=== PATIENT | female | born 1945 | race African-American/Black ===

== ENCOUNTER → 2017-11-15 12:51 | Outpatient (CLI) | payer MEDICARE, SELFPAY ==
[2017-11-19 10:24] LABS: 585 Gram Check P; Amount Collected in g 585; Dizziness NO; Postdiastolic BP 88; Postsystolic BP 130; Prediastolic 95; Presystolic 145; Pulse 99; Site of phlebotomy RAC; Swelling NO; Therapeutic Phleb Comment NO COMMENT; Zero Check Sebra Scale P
[2017-11-19 11:23] LABS: Alanine Aminotransferase 62 IU/L (9-52); Albumin 4.2 g/dL (3.5-5.0); Albumin Globulin Ratio 1.2 (1.0-2.8); Alkaline Phosphatase 114 U/L (38-126); Aspartate Aminotransferase 63 IU/L (14-36); BUN Creatinine Ratio 14.3 (6-22); Bilirubin Total 0.5 mg/dL (0.2-1.3); Blood Urea Nitrogen 10 mg/dL (7-17); Calcium 9.2 mg/dL (8.4-10.2); Carbon Dioxide 26 mmol/L (22-32); Chloride 103 mmol/L (98-107); Estimated Glomerular Filt Rate > 60.0 mL/min (>60); Globulin 3.4 g/dL (1.7-4.1); Glucose 107 mg/dL (80-110); HEMOLYSIS 23 (0-50); Potassium 3.7 mmol/L (3.4-5.1); Sodium 145 mmol/L (137-145); Total Protein 7.6 g/dL (6.3-8.2)
[2017-11-19 11:51] LABS: HEMOLYSIS < 15 (0-50); Iron 47 ug/dL (37-170)
[2017-11-19 11:55] LABS: Ferritin 20.8 ng/mL (11.1-264)
[2017-11-19 12:02] LABS: Percent Iron Saturation 11 % (15-50); Total Iron Binding Capacity 447 ug/mL (265-497); Transferrin 344 mg/dL (206-381)
== END ==
PROVIDERS: PCP Internal Medicine; Visit Provider Nurse Practitioner Gerontology
DX: D75.1 Secondary polycythemia (principal)
CPT/HCPCS: 80053; 82728; 83540; 83550; 99195

== ENCOUNTER → 2017-11-28 08:35 | Outpatient (CLI) | payer MEDICARE, SELFPAY ==
--- NOTE | 2017-11-28 | DI.MG.S_ITS ---
BILATERAL DIGITAL SCREENING MAMMOGRAM 3D/2D WITH CAD: 11/28/2017 CLINICAL: Routine screening. Comparison is made to exams dated: 10/23/2016 mammogram, 10/07/2015 mammogram, and 09/24/2014 mammogram - [facility]. There are scattered fibroglandular elements in both breasts. Current study was also evaluated with a Computer Aided Detection (CAD) system. No significant masses, calcifications, or other findings are seen in either breast. There has been no significant interval change. IMPRESSION: NEGATIVE There is no mammographic evidence of malignancy. A 1 year screening mammogram is recommended. This exam was interpreted at Station ID: [id number]. NOTE: For mammograms, a report in lay terms will be sent to the patient. Approximately 15% of breast malignancies will not be visualized mammographically. In the management of a palpable breast mass, a negative mammogram must not discourage biopsy of a clinically suspicious lesion. Electronically Signed By: Alin beck/tennille:11/28/2017 11:14:05 letter sent: Normal Exam ACR BI-RADS Category 1: Negative [id number]
== END ==
PROVIDERS: PCP Internal Medicine; Visit Provider Internal Medicine
DX: Z12.31 Encounter for screening mammogram for malignant neoplasm of breast (principal)
CPT/HCPCS: 77063; 77067

== ENCOUNTER 2017-12-24 12:37 | Emergency (ER) | payer MEDICARE, SELFPAY ==
[2017-12-24 12:51] VITALS: BP 131/93; PULSE 92; RESP 20; TEMP 35.9; O2SAT 95; BMI 22.9
--- NOTE | 2017-12-24 13:18 | ED.ABDPAIN ---
HPI - Abdominal Pain <Michelle Lemus PA-C - Last Filed: 12/24/17 20:39> General Chief Complaint: Abdominal Pain Stated Complaint: PAIN LOWER RIGHT ABDOMINAL AREA FOR ABOUT 3 DAYS Time Seen by Provider: 12/24/17 13:18 Source: patient and family Mode of arrival: ambulatory Limitations: no limitations History of Present Illness HPI narrative: This 72-year-old female comes in due to right lower quadrant pain x3 days. She was seen at the walk-in clinic and was sent here due to concern for appendicitis. She states that she awoke with pain, denies any trauma. She states that pain is worse with getting up and started to move around, a little bit better when she starts to walk. She states that pain does not radiate. She has not had any fever. She states she has not had any nausea or vomiting. No reflux, chest pain, or dyspnea. She denies any dysuria or hematuria. She states that she has had slightly smaller bowel movements because she has been eating less, but no diarrhea or other changes. She does have somewhat less appetite than usual. She denies any other new symptoms on systems review. Related Data Home Medications Medication Instructions Recorded Confirmed aspirin [Aspir-81] 1 tab PO DAILY 11/15/17 12/26/17 multivitamin 1 tab PO DAILY 11/15/17 12/26/17 omega 8-owt-vhm-fish oil [[place]-3] 1 cap PO DAILY 11/15/17 12/26/17 Calcium 1 tab PO DAILY 12/24/17 12/26/17 latanoprost 1 drp OPHTHALMIC (EYE) DIRECTED 12/24/17 12/26/17 losartan-hydrochlorothiazide 1 tab PO DAILY 12/24/17 12/26/17 Previous Rx's Medication Instructions Recorded amoxicillin-pot clavulanate 1 tab PO Q12H #20 tab 12/24/17 [Augmentin] Allergies Allergy/AdvReac Type Severity Reaction Status Date / Time lisinopril Allergy Unknown SWELLING Verified 12/26/17 09:11 LIPS, TONGUE Exam <Michelle Lemus PA-C - Last Filed: 12/24/17 20:39> Narrative Exam Narrative: GENERAL APPEARANCE: Patient sitting comfortably, in no distress. HEENT: PERRL, EOMI, conjunctiva pink, no scleral icterus NECK: Supple LUNGS: Clear to auscultation bilaterally. HEART: Rate and rhythm regular, normal S1 and S2, no S3 or S4. ABDOMEN: Soft, nondistended, bowel sounds present x 4 quadrants, no masses palpable, she has moderate tenderness throughout the abdomen, increased over the right upper quadrant with +Das's, and most over the right lower quadrant where she does have some guarding, no rebound, negative obturator, psoas and Wilian EXTREMITIES: No edema, no cyanosis DERMATOLOGIC: No jaundice or exanthem NEUROLOGIC: Alert and oriented with normal speech and coordination Initial Vital Signs Initial Vital Signs: Vital Signs Temperature 96.7 F L 12/24/17 12:51 Pulse Rate 92 H 12/24/17 12:51 Respiratory Rate 20 12/24/17 12:51 Blood Pressure 131/93 H 12/24/17 12:51 Pulse Oximetry 95 12/24/17 12:51 <Carole Palomo DO - Last Filed: 12/26/17 13:35> Initial Vital Signs Initial Vital Signs: Vital Signs Temperature 96.7 F L 12/24/17 12:51 Pulse Rate 92 H 12/24/17 12:51 Respiratory Rate 20 12/24/17 12:51 Blood Pressure 131/93 H 12/24/17 12:51 Pulse Oximetry 95 12/24/17 12:51 Course <Michelle Lemus PA-C - Last Filed: 12/24/17 20:39> Additional Information: CT scan findings were reviewed with patient and surgical consult was requested with Dr. Mueller who is simulation educator. She has visited patient in the ED and plan to start her on antibiotics and do colonoscopy to evaluate for infection prior to possible colon resection or colectomy. Colonoscopy is planned for . Patient wished to go home until then so Dr. Meuller suggested starting her on Augmentin and has her scheduled already to return at a.m. on . Advised patient to return if any new symptoms such as vomiting or fever or acutely worsening pain in the interim, and she is agreeable Orders Ordered: Discontinued Medications Ketorolac Tromethamine (Toradol) 15 mg IV NOW ONE Stop: 12/24/17 13:32 Last Admin: 12/24/17 13:49 Dose: 15 mg Vital Signs - 8 hr 12/24/17 12:51 12/24/17 14:42 12/24/17 16:06 Temperature 96.7 F L Pulse Rate 92 H 75 78 Respiratory Rate 20 12 14 Blood Pressure 131/93 H Blood Pressure [Right Arm] 147/83 H 144/95 H Pulse Oximetry 95 99 100 <Carole Palomo DO - Last Filed: 12/26/17 13:35> Orders Ordered: Discontinued Medications Ketorolac Tromethamine (Toradol) 15 mg IV NOW ONE Stop: 12/24/17 13:32 Last Admin: 12/24/17 13:49 Dose: 15 mg Vital Signs - 8 hr 12/24/17 12:51 12/24/17 14:42 12/24/17 16:06 Temperature 96.7 F L Pulse Rate 92 H 75 78 Respiratory Rate 20 12 14 Blood Pressure 131/93 H Blood Pressure [Right Arm] 147/83 H 144/95 H Pulse Oximetry 95 99 100 MDM - Abdominal Pain <Michelle Lemus PA-C - Last Filed: 12/24/17 20:39> Lab Data Result diagrams: 12/24/17 13:40 12/24/17 13:40 Lab Results 12/24/17 12/24/17 12/24/17 Range/Units 13:40 13:40 13:40 WBC 12.6 H (4.5-11.0) X10^3/uL RBC 5.69 H (4.0-5.2) X10^6/uL Hgb 16.8 H (12.0-16.0) g/dL Hct 51.6 H (36-46) % MCV 90.7 (80-100) fL MCH 29.6 (26-34) PG MCHC 32.6 (30-36) % RDW 15.0 H (11.6-14.8) % Plt Count 181 (150-400) X10^3/uL Neut % (Auto) Not Reportable Lymph % (Auto) Not Reportable [place] % (Auto) Not Reportable Eos % (Auto) Not Reportable Baso % (Auto) Not Reportable Total Counted 100 Seg Neutrophils % 45.0 (38-70) % Lymphocytes % (Manual) 40.0 (25-45) % Atypical Lymphs % 9.0 H ( - 0) % Monocytes % (Manual) 6.0 (2-11) % Neutrophils # (Manual) 5670 (5266-5825) /uL RBC Morphology Not Reportable PT 12.0 (10.1-12.7) SECONDS INR 1.1 (0.9-1.3) APTT 31 (26.4-36.2) SECONDS Sodium 142 (137-145) mmol/L Potassium 3.7 (3.4-5.1) mmol/L Chloride 102 (98-107) mmol/L Carbon Dioxide 30 (22-32) mmol/L BUN 9 (7-17) mg/dL Creatinine 0.70 (0.52-1.04) mg/dL Estimated GFR > 60.0 (>60) mL/min BUN/Creatinine Ratio 12.9 (6-22) Glucose 80 (80-110) mg/dL Calcium 9.2 (8.4-10.2) mg/dL Total Bilirubin 0.8 (0.2-1.3) mg/dL AST 60 H (14-36) IU/L ALT 60 H (9-52) IU/L Alkaline Phosphatase 107 (38-126) U/L Total Protein 7.7 (6.3-8.2) g/dL Albumin 4.2 (3.5-5.0) g/dL Globulin 3.5 (1.7-4.1) g/dL Albumin/Globulin Ratio 1.2 (1.0-2.8) Lipase 22 L (23-300) U/L Urine Color Urine Appearance Urine pH (4.5-8.0) Ur Specific [place] (1.000-1.035) Urine Protein (Negative) Urine Glucose (UA) (Normal) g/dL Urine Ketones (NEGATIVE) Urine Occult Blood (Negative) Urine Nitrate (Negative) Urine Bilirubin (NEGATIVE) Urine Urobilinogen (0.2) E.U./dL Ur Leukocyte Esterase (NEGATIVE) Urine RBC (0-5/HPF) Urine WBC (0-5/HPF) Ur Squamous Epith Cells Urine Bacteria (None) Ur Culture Indicated? Micro UA Comment 12/24/17 Range/Units 16:19 WBC (4.5-11.0) X10^3/uL RBC (4.0-5.2) X10^6/uL Hgb (12.0-16.0) g/dL Hct (36-46) % MCV (80-100) fL MCH (26-34) PG MCHC (30-36) % RDW (11.6-14.8) % Plt Count (150-400) X10^3/uL Neut % (Auto) Lymph % (Auto) [place] % (Auto) Eos % (Auto) Baso % (Auto) Total Counted Seg Neutrophils % (38-70) % Lymphocytes % (Manual) (25-45) % Atypical Lymphs % ( - 0) % Monocytes % (Manual) (2-11) % Neutrophils # (Manual) (7161-5899) /uL RBC Morphology PT (10.1-12.7) SECONDS INR (0.9-1.3) APTT (26.4-36.2) SECONDS Sodium (137-145) mmol/L Potassium (3.4-5.1) mmol/L Chloride (98-107) mmol/L Carbon Dioxide (22-32) mmol/L BUN (7-17) mg/dL Creatinine (0.52-1.04) mg/dL Estimated GFR (>60) mL/min BUN/Creatinine Ratio (6-22) Glucose (80-110) mg/dL Calcium (8.4-10.2) mg/dL Total Bilirubin (0.2-1.3) mg/dL AST (14-36) IU/L ALT (9-52) IU/L Alkaline Phosphatase (38-126) U/L Total Protein (6.3-8.2) g/dL Albumin (3.5-5.0) g/dL Globulin (1.7-4.1) g/dL Albumin/Globulin Ratio (1.0-2.8) Lipase (23-300) U/L Urine Color Yellow Urine Appearance Clear Urine pH 5.0 (4.5-8.0) Ur Specific [place] <=1.005 (1.000-1.035) Urine Protein Negative (Negative) Urine Glucose (UA) Negative (Normal) g/dL Urine Ketones Trace H (NEGATIVE) Urine Occult Blood Trace-lysed (Negative) Urine Nitrate Negative (Negative) Urine Bilirubin Negative (NEGATIVE) Urine Urobilinogen 0.2 (0.2) E.U./dL Ur Leukocyte Esterase Negative (NEGATIVE) Urine RBC 0-1/hpf (0-5/HPF) Urine WBC 1-5/hpf (0-5/HPF) Ur Squamous Epith Cells 5-10 /hpf H Urine Bacteria Few (2-10) H (None) Ur Culture Indicated? Cult not indicated Micro UA Comment Not Reportable <Carole Palomo, DO - Last Filed: 12/26/17 13:35> Lab Data Lab Results 12/24/17 12/24/17 12/24/17 Range/Units 13:40 13:40 13:40 WBC 12.6 H (4.5-11.0) X10^3/uL RBC 5.69 H (4.0-5.2) X10^6/uL Hgb 16.8 H (12.0-16.0) g/dL Hct 51.6 H (36-46) % MCV 90.7 (80-100) fL MCH 29.6 (26-34) PG MCHC 32.6 (30-36) % RDW 15.0 H (11.6-14.8) % Plt Count 181 (150-400) X10^3/uL Neut % (Auto) Not Reportable Lymph % (Auto) Not Reportable [place] % (Auto) Not Reportable Eos % (Auto) Not Reportable Baso % (Auto) Not Reportable Total Counted 100 Seg Neutrophils % 45.0 (38-70) % Lymphocytes % (Manual) 40.0 (25-45) % Atypical Lymphs % 9.0 H ( - 0) % Monocytes % (Manual) 6.0 (2-11) % Neutrophils # (Manual) 5670 (1537-8720) /uL RBC Morphology Not Reportable PT 12.0 (10.1-12.7) SECONDS INR 1.1 (0.9-1.3) APTT 31 (26.4-36.2) SECONDS Sodium 142 (137-145) mmol/L Potassium 3.7 (3.4-5.1) mmol/L Chloride 102 (98-107) mmol/L Carbon Dioxide 30 (22-32) mmol/L BUN 9 (7-17) mg/dL Creatinine 0.70 (0.52-1.04) mg/dL Estimated GFR > 60.0 (>60) mL/min BUN/Creatinine Ratio 12.9 (6-22) Glucose 80 (80-110) mg/dL Calcium 9.2 (8.4-10.2) mg/dL Total Bilirubin 0.8 (0.2-1.3) mg/dL AST 60 H (14-36) IU/L ALT 60 H (9-52) IU/L Alkaline Phosphatase 107 (38-126) U/L Total Protein 7.7 (6.3-8.2) g/dL Albumin 4.2 (3.5-5.0) g/dL Globulin 3.5 (1.7-4.1) g/dL Albumin/Globulin Ratio 1.2 (1.0-2.8) Lipase 22 L (23-300) U/L Urine Color Urine Appearance Urine pH (4.5-8.0) Ur Specific [place] (1.000-1.035) Urine Protein (Negative) Urine Glucose (UA) (Normal) g/dL Urine Ketones (NEGATIVE) Urine Occult Blood (Negative) Urine Nitrate (Negative) Urine Bilirubin (NEGATIVE) Urine Urobilinogen (0.2) E.U./dL Ur Leukocyte Esterase (NEGATIVE) Urine RBC (0-5/HPF) Urine WBC (0-5/HPF) Ur Squamous Epith Cells Urine Bacteria (None) Ur Culture Indicated? Micro UA Comment 12/24/17 Range/Units 16:19 WBC (4.5-11.0) X10^3/uL RBC (4.0-5.2) X10^6/uL Hgb (12.0-16.0) g/dL Hct (36-46) % MCV (80-100) fL MCH (26-34) PG MCHC (30-36) % RDW (11.6-14.8) % Plt Count (150-400) X10^3/uL Neut % (Auto) Lymph % (Auto) [place] % (Auto) Eos % (Auto) Baso % (Auto) Total Counted Seg Neutrophils % (38-70) % Lymphocytes % (Manual) (25-45) % Atypical Lymphs % ( - 0) % Monocytes % (Manual) (2-11) % Neutrophils # (Manual) (1016-8246) /uL RBC Morphology PT (10.1-12.7) SECONDS INR (0.9-1.3) APTT (26.4-36.2) SECONDS Sodium (137-145) mmol/L Potassium (3.4-5.1) mmol/L Chloride (98-107) mmol/L Carbon Dioxide (22-32) mmol/L BUN (7-17) mg/dL Creatinine (0.52-1.04) mg/dL Estimated GFR (>60) mL/min BUN/Creatinine Ratio (6-22) Glucose (80-110) mg/dL Calcium (8.4-10.2) mg/dL Total Bilirubin (0.2-1.3) mg/dL AST (14-36) IU/L ALT (9-52) IU/L Alkaline Phosphatase (38-126) U/L Total Protein (6.3-8.2) g/dL Albumin (3.5-5.0) g/dL Globulin (1.7-4.1) g/dL Albumin/Globulin Ratio (1.0-2.8) Lipase (23-300) U/L Urine Color Yellow Urine Appearance Clear Urine pH 5.0 (4.5-8.0) Ur Specific [place] <=1.005 (1.000-1.035) Urine Protein Negative (Negative) Urine Glucose (UA) Negative (Normal) g/dL Urine Ketones Trace H (NEGATIVE) Urine Occult Blood Trace-lysed (Negative) Urine Nitrate Negative (Negative) Urine Bilirubin Negative (NEGATIVE) Urine Urobilinogen 0.2 (0.2) E.U./dL Ur Leukocyte Esterase Negative (NEGATIVE) Urine RBC 0-1/hpf (0-5/HPF) Urine WBC 1-5/hpf (0-5/HPF) Ur Squamous Epith Cells 5-10 /hpf H Urine Bacteria Few (2-10) H (None) Ur Culture Indicated? Cult not indicated Micro UA Comment Not Reportable Discharge Plan Departure Patient Disposition: Home, Self-Care Clinical Impression: Appendicitis Discharge Date/Time: 12/24/17 16:49 Interventions: ED Discharge Assessment Last Done: 12/24/17 16:40 Instructions: DI for Abdominal Pain-Adult Activity Restrictions/Additional Instructions: Please return as we talked about if you have acutely worsening pain, or new fever or vomiting or other worsening symptoms, otherwise check in at the main desk on December 26 at a.m. for your colonoscopy with Dr. Mueller so she can do further investigation on the mass that was seen on the CT scan and your inflammed appendix. I have sent an antibiotic prescription to [facility] for you that Dr. Mueller would like you to take Prescriptions: New amoxicillin-pot clavulanate [Augmentin] 875-125 mg tablet 1 tab PO Q12H Qty: 20 RF: 0 No Action latanoprost 0.005 % drops 1 drp ophthalmic (eye) DIRECTED RF: 0 losartan-hydrochlorothiazide 50-12.5 mg tablet 1 tab PO DAILY RF: 0 Calcium 1 tab PO DAILY RF: 0 omega 4-ufh-dfv-fish oil [[place]-3] 350 mg-235 mg- 90 mg-597 mg Capsule,Delayed Release(Dr/Ec) 1 cap PO DAILY RF: 0 aspirin [Aspir-81] 81 mg Tablet,Delayed Release (Dr/Ec) 1 tab PO DAILY RF: 0 multivitamin Tablet 1 tab PO DAILY RF: 0 Referrals: Aura Mueller MD [Physician] - Sayra Russo MD [Primary Care Provider] - <Carole Palomo DO - Last Filed: 12/26/17 13:35> Cosign ED Attending Cosignature Attestation: I was immediately available in the department for consultation. Documentation has been reviewed. I agree with assessment and plan.
--- NOTE | 2017-12-24 13:37 | DI.CT.S_ITS ---
PROCEDURE: CT ABDOMEN PELVIS W CON INDICATIONS: Abdominal pain, most RUQ TECHNIQUE: After the administration of oral and intravenous contrast, 5 mm thick sections acquired from the diaphragms to the symphysis. 5 mm thick coronal and sagittal reformats were performed. For radiation dose reduction, the following was used: automated exposure control, adjustment of mA and/or kV according to patient size. COMPARISON: None. FINDINGS: Image quality: Excellent. ABDOMEN: Lung bases: There is mild dependent atelectasis bilaterally. Heart size is normal. Solid organs: There is hypoattenuation of the liver consistent with fatty infiltration. No discrete hepatic mass identified. Gallbladder appears within normal limits without calcified gallstones. Biliary system is non-dilated. Pancreas enhances normally. Spleen is normal in size and enhancement. No adrenal nodules. Kidneys are normal in size and enhancement, without hydronephrosis. Peritoneum and bowel: There is prominent masslike lobulated wall thickening in the cecum also involving the terminal ileum. No associated dilatation of the small bowel to suggest small bowel obstruction at this time. There is associated mild dilatation and wall thickening of the appendix which measures up to approximately 1 cm in diameter. There is posterior wall enhancement and mild fat stranding. Findings are suggestive of acute appendicitis without evidence of perforation. There is colonic diverticulosis in the descending and sigmoid colon without evidence of acute diverticulitis. No free fluid or air. Nodes and vessels: No retroperitoneal or mesenteric adenopathy. Aorta and inferior vena cava are normal in caliber. Miscellaneous: No ventral hernias. PELVIS: Genitourinary: Bladder wall thickness is normal. Miscellaneous: No inguinal hernias or adenopathy. Bones: No suspicious bony lesions. No vertebral body compression fractures. IMPRESSION: 1. Lobulated cecal wall thickening highly suspicious for a neoplasm such as adenocarcinoma. There is involvement of the terminal ileum although there is no evidence of bowel obstruction at this time. The differential includes an infectious or inflammatory colitis although this is considered less likely given the degree of wall thickening. Recommend correlation with colonoscopy. 2. Abnormal mild distention and wall thickening of the appendix with associated inflammatory fat changes suggestive of associated acute appendicitis. Findings discussed with Cherrie Lemus PA-C on 12/24/17 at 2:40 PM. Dictated by: Russ Givens M.D. on 12/24/2017 at 14:29 Approved by: Russ Givens M.D. on 12/24/2017 at 14:48
--- NOTE | 2017-12-24 13:40 | ED_ITS ---
HPI - Abdominal Pain <Michelle Lemus PA-C - Last Filed: 12/24/17 20:39> General Chief Complaint: Abdominal Pain Stated Complaint: PAIN LOWER RIGHT ABDOMINAL AREA FOR ABOUT 3 DAYS Time Seen by Provider: 12/24/17 13:18 Source: patient and family Mode of arrival: ambulatory Limitations: no limitations History of Present Illness HPI narrative: This 72-year-old female comes in due to right lower quadrant pain x3 days. She was seen at the walk-in clinic and was sent here due to concern for appendicitis. She states that she awoke with pain, denies any trauma. She states that pain is worse with getting up and started to move around, a little bit better when she starts to walk. She states that pain does not radiate. She has not had any fever. She states she has not had any nausea or vomiting. No reflux, chest pain, or dyspnea. She denies any dysuria or hematuria. She states that she has had slightly smaller bowel movements because she has been eating less, but no diarrhea or other changes. She does have somewhat less appetite than usual. She denies any other new symptoms on systems review. Related Data Home Medications Medication Instructions Recorded Confirmed aspirin [Aspir-81] 1 tab PO DAILY 11/15/17 12/26/17 multivitamin 1 tab PO DAILY 11/15/17 12/26/17 omega 1-niw-jib-fish oil [[place]-3] 1 cap PO DAILY 11/15/17 12/26/17 Calcium 1 tab PO DAILY 12/24/17 12/26/17 latanoprost 1 drp OPHTHALMIC (EYE) DIRECTED 12/24/17 12/26/17 losartan-hydrochlorothiazide 1 tab PO DAILY 12/24/17 12/26/17 Previous Rx's Medication Instructions Recorded amoxicillin-pot clavulanate 1 tab PO Q12H #20 tab 12/24/17 [Augmentin] Allergies Allergy/AdvReac Type Severity Reaction Status Date / Time lisinopril Allergy Unknown SWELLING Verified 12/26/17 09:11 LIPS, TONGUE Exam <Michelle Lemus PA-C - Last Filed: 12/24/17 20:39> Narrative Exam Narrative: GENERAL APPEARANCE: Patient sitting comfortably, in no distress. HEENT: PERRL, EOMI, conjunctiva pink, no scleral icterus NECK: Supple LUNGS: Clear to auscultation bilaterally. HEART: Rate and rhythm regular, normal S1 and S2, no S3 or S4. ABDOMEN: Soft, nondistended, bowel sounds present x 4 quadrants, no masses palpable, she has moderate tenderness throughout the abdomen, increased over the right upper quadrant with +Das's, and most over the right lower quadrant where she does have some guarding, no rebound, negative obturator, psoas and Wilian EXTREMITIES: No edema, no cyanosis DERMATOLOGIC: No jaundice or exanthem NEUROLOGIC: Alert and oriented with normal speech and coordination Initial Vital Signs Initial Vital Signs: Vital Signs Temperature 96.7 F L 12/24/17 12:51 Pulse Rate 92 H 12/24/17 12:51 Respiratory Rate 20 12/24/17 12:51 Blood Pressure 131/93 H 12/24/17 12:51 Pulse Oximetry 95 12/24/17 12:51 <Carole Palomo DO - Last Filed: 12/26/17 13:35> Initial Vital Signs Initial Vital Signs: Vital Signs Temperature 96.7 F L 12/24/17 12:51 Pulse Rate 92 H 12/24/17 12:51 Respiratory Rate 20 12/24/17 12:51 Blood Pressure 131/93 H 12/24/17 12:51 Pulse Oximetry 95 12/24/17 12:51 Course <Michelle Lemus PA-C - Last Filed: 12/24/17 20:39> Additional Information: CT scan findings were reviewed with patient and surgical consult was requested with Dr. Mueller who is agricultural produce commission agent. She has visited patient in the ED and plan to start her on antibiotics and do colonoscopy to evaluate for infection prior to possible colon resection or colectomy. Colonoscopy is planned for . Patient wished to go home until then so Dr. Mueller suggested starting her on Augmentin and has her scheduled already to return at a.m. on . Advised patient to return if any new symptoms such as vomiting or fever or acutely worsening pain in the interim, and she is agreeable Orders Ordered: Discontinued Medications Ketorolac Tromethamine (Toradol) 15 mg IV NOW ONE Stop: 12/24/17 13:32 Last Admin: 12/24/17 13:49 Dose: 15 mg Vital Signs - 8 hr 12/24/17 12:51 12/24/17 14:42 12/24/17 16:06 Temperature 96.7 F L Pulse Rate 92 H 75 78 Respiratory Rate 20 12 14 Blood Pressure 131/93 H Blood Pressure [Right Arm] 147/83 H 144/95 H Pulse Oximetry 95 99 100 <Carole Palomo DO - Last Filed: 12/26/17 13:35> Orders Ordered: Discontinued Medications Ketorolac Tromethamine (Toradol) 15 mg IV NOW ONE Stop: 12/24/17 13:32 Last Admin: 12/24/17 13:49 Dose: 15 mg Vital Signs - 8 hr 12/24/17 12:51 12/24/17 14:42 12/24/17 16:06 Temperature 96.7 F L Pulse Rate 92 H 75 78 Respiratory Rate 20 12 14 Blood Pressure 131/93 H Blood Pressure [Right Arm] 147/83 H 144/95 H Pulse Oximetry 95 99 100 MDM - Abdominal Pain <Michelle Lemus PA-C - Last Filed: 12/24/17 20:39> Lab Data Result diagrams: 12/24/17 13:40 12/24/17 13:40 Lab Results 12/24/17 12/24/17 12/24/17 Range/Units 13:40 13:40 13:40 WBC 12.6 H (4.5-11.0) X10^3/uL RBC 5.69 H (4.0-5.2) X10^6/uL Hgb 16.8 H (12.0-16.0) g/dL Hct 51.6 H (36-46) % MCV 90.7 (80-100) fL MCH 29.6 (26-34) PG MCHC 32.6 (30-36) % RDW 15.0 H (11.6-14.8) % Plt Count 181 (150-400) X10^3/uL Neut % (Auto) Not Reportable Lymph % (Auto) Not Reportable [place] % (Auto) Not Reportable Eos % (Auto) Not Reportable Baso % (Auto) Not Reportable Total Counted 100 Seg Neutrophils % 45.0 (38-70) % Lymphocytes % (Manual) 40.0 (25-45) % Atypical Lymphs % 9.0 H ( - 0) % Monocytes % (Manual) 6.0 (2-11) % Neutrophils # (Manual) 5670 (2338-3716) /uL RBC Morphology Not Reportable PT 12.0 (10.1-12.7) SECONDS INR 1.1 (0.9-1.3) APTT 31 (26.4-36.2) SECONDS Sodium 142 (137-145) mmol/L Potassium 3.7 (3.4-5.1) mmol/L Chloride 102 (98-107) mmol/L Carbon Dioxide 30 (22-32) mmol/L BUN 9 (7-17) mg/dL Creatinine 0.70 (0.52-1.04) mg/dL Estimated GFR > 60.0 (>60) mL/min BUN/Creatinine Ratio 12.9 (6-22) Glucose 80 (80-110) mg/dL Calcium 9.2 (8.4-10.2) mg/dL Total Bilirubin 0.8 (0.2-1.3) mg/dL AST 60 H (14-36) IU/L ALT 60 H (9-52) IU/L Alkaline Phosphatase 107 (38-126) U/L Total Protein 7.7 (6.3-8.2) g/dL Albumin 4.2 (3.5-5.0) g/dL Globulin 3.5 (1.7-4.1) g/dL Albumin/Globulin Ratio 1.2 (1.0-2.8) Lipase 22 L (23-300) U/L Urine Color Urine Appearance Urine pH (4.5-8.0) Ur Specific [place] (1.000-1.035) Urine Protein (Negative) Urine Glucose (UA) (Normal) g/dL Urine Ketones (NEGATIVE) Urine Occult Blood (Negative) Urine Nitrate (Negative) Urine Bilirubin (NEGATIVE) Urine Urobilinogen (0.2) E.U./dL Ur Leukocyte Esterase (NEGATIVE) Urine RBC (0-5/HPF) Urine WBC (0-5/HPF) Ur Squamous Epith Cells Urine Bacteria (None) Ur Culture Indicated? Micro UA Comment 12/24/17 Range/Units 16:19 WBC (4.5-11.0) X10^3/uL RBC (4.0-5.2) X10^6/uL Hgb (12.0-16.0) g/dL Hct (36-46) % MCV (80-100) fL MCH (26-34) PG MCHC (30-36) % RDW (11.6-14.8) % Plt Count (150-400) X10^3/uL Neut % (Auto) Lymph % (Auto) [place] % (Auto) Eos % (Auto) Baso % (Auto) Total Counted Seg Neutrophils % (38-70) % Lymphocytes % (Manual) (25-45) % Atypical Lymphs % ( - 0) % Monocytes % (Manual) (2-11) % Neutrophils # (Manual) (2085-5431) /uL RBC Morphology PT (10.1-12.7) SECONDS INR (0.9-1.3) APTT (26.4-36.2) SECONDS Sodium (137-145) mmol/L Potassium (3.4-5.1) mmol/L Chloride (98-107) mmol/L Carbon Dioxide (22-32) mmol/L BUN (7-17) mg/dL Creatinine (0.52-1.04) mg/dL Estimated GFR (>60) mL/min BUN/Creatinine Ratio (6-22) Glucose (80-110) mg/dL Calcium (8.4-10.2) mg/dL Total Bilirubin (0.2-1.3) mg/dL AST (14-36) IU/L ALT (9-52) IU/L Alkaline Phosphatase (38-126) U/L Total Protein (6.3-8.2) g/dL Albumin (3.5-5.0) g/dL Globulin (1.7-4.1) g/dL Albumin/Globulin Ratio (1.0-2.8) Lipase (23-300) U/L Urine Color Yellow Urine Appearance Clear Urine pH 5.0 (4.5-8.0) Ur Specific [place] <=1.005 (1.000-1.035) Urine Protein Negative (Negative) Urine Glucose (UA) Negative (Normal) g/dL Urine Ketones Trace H (NEGATIVE) Urine Occult Blood Trace-lysed (Negative) Urine Nitrate Negative (Negative) Urine Bilirubin Negative (NEGATIVE) Urine Urobilinogen 0.2 (0.2) E.U./dL Ur Leukocyte Esterase Negative (NEGATIVE) Urine RBC 0-1/hpf (0-5/HPF) Urine WBC 1-5/hpf (0-5/HPF) Ur Squamous Epith Cells 5-10 /hpf H Urine Bacteria Few (2-10) H (None) Ur Culture Indicated? Cult not indicated Micro UA Comment Not Reportable <Carole Palomo, DO - Last Filed: 12/26/17 13:35> Lab Data Lab Results 12/24/17 12/24/17 12/24/17 Range/Units 13:40 13:40 13:40 WBC 12.6 H (4.5-11.0) X10^3/uL RBC 5.69 H (4.0-5.2) X10^6/uL Hgb 16.8 H (12.0-16.0) g/dL Hct 51.6 H (36-46) % MCV 90.7 (80-100) fL MCH 29.6 (26-34) PG MCHC 32.6 (30-36) % RDW 15.0 H (11.6-14.8) % Plt Count 181 (150-400) X10^3/uL Neut % (Auto) Not Reportable Lymph % (Auto) Not Reportable [place] % (Auto) Not Reportable Eos % (Auto) Not Reportable Baso % (Auto) Not Reportable Total Counted 100 Seg Neutrophils % 45.0 (38-70) % Lymphocytes % (Manual) 40.0 (25-45) % Atypical Lymphs % 9.0 H ( - 0) % Monocytes % (Manual) 6.0 (2-11) % Neutrophils # (Manual) 5670 (3193-1190) /uL RBC Morphology Not Reportable PT 12.0 (10.1-12.7) SECONDS INR 1.1 (0.9-1.3) APTT 31 (26.4-36.2) SECONDS Sodium 142 (137-145) mmol/L Potassium 3.7 (3.4-5.1) mmol/L Chloride 102 (98-107) mmol/L Carbon Dioxide 30 (22-32) mmol/L BUN 9 (7-17) mg/dL Creatinine 0.70 (0.52-1.04) mg/dL Estimated GFR > 60.0 (>60) mL/min BUN/Creatinine Ratio 12.9 (6-22) Glucose 80 (80-110) mg/dL Calcium 9.2 (8.4-10.2) mg/dL Total Bilirubin 0.8 (0.2-1.3) mg/dL AST 60 H (14-36) IU/L ALT 60 H (9-52) IU/L Alkaline Phosphatase 107 (38-126) U/L Total Protein 7.7 (6.3-8.2) g/dL Albumin 4.2 (3.5-5.0) g/dL Globulin 3.5 (1.7-4.1) g/dL Albumin/Globulin Ratio 1.2 (1.0-2.8) Lipase 22 L (23-300) U/L Urine Color Urine Appearance Urine pH (4.5-8.0) Ur Specific [place] (1.000-1.035) Urine Protein (Negative) Urine Glucose (UA) (Normal) g/dL Urine Ketones (NEGATIVE) Urine Occult Blood (Negative) Urine Nitrate (Negative) Urine Bilirubin (NEGATIVE) Urine Urobilinogen (0.2) E.U./dL Ur Leukocyte Esterase (NEGATIVE) Urine RBC (0-5/HPF) Urine WBC (0-5/HPF) Ur Squamous Epith Cells Urine Bacteria (None) Ur Culture Indicated? Micro UA Comment 12/24/17 Range/Units 16:19 WBC (4.5-11.0) X10^3/uL RBC (4.0-5.2) X10^6/uL Hgb (12.0-16.0) g/dL Hct (36-46) % MCV (80-100) fL MCH (26-34) PG MCHC (30-36) % RDW (11.6-14.8) % Plt Count (150-400) X10^3/uL Neut % (Auto) Lymph % (Auto) [place] % (Auto) Eos % (Auto) Baso % (Auto) Total Counted Seg Neutrophils % (38-70) % Lymphocytes % (Manual) (25-45) % Atypical Lymphs % ( - 0) % Monocytes % (Manual) (2-11) % Neutrophils # (Manual) (7595-5389) /uL RBC Morphology PT (10.1-12.7) SECONDS INR (0.9-1.3) APTT (26.4-36.2) SECONDS Sodium (137-145) mmol/L Potassium (3.4-5.1) mmol/L Chloride (98-107) mmol/L Carbon Dioxide (22-32) mmol/L BUN (7-17) mg/dL Creatinine (0.52-1.04) mg/dL Estimated GFR (>60) mL/min BUN/Creatinine Ratio (6-22) Glucose (80-110) mg/dL Calcium (8.4-10.2) mg/dL Total Bilirubin (0.2-1.3) mg/dL AST (14-36) IU/L ALT (9-52) IU/L Alkaline Phosphatase (38-126) U/L Total Protein (6.3-8.2) g/dL Albumin (3.5-5.0) g/dL Globulin (1.7-4.1) g/dL Albumin/Globulin Ratio (1.0-2.8) Lipase (23-300) U/L Urine Color Yellow Urine Appearance Clear Urine pH 5.0 (4.5-8.0) Ur Specific [place] <=1.005 (1.000-1.035) Urine Protein Negative (Negative) Urine Glucose (UA) Negative (Normal) g/dL Urine Ketones Trace H (NEGATIVE) Urine Occult Blood Trace-lysed (Negative) Urine Nitrate Negative (Negative) Urine Bilirubin Negative (NEGATIVE) Urine Urobilinogen 0.2 (0.2) E.U./dL Ur Leukocyte Esterase Negative (NEGATIVE) Urine RBC 0-1/hpf (0-5/HPF) Urine WBC 1-5/hpf (0-5/HPF) Ur Squamous Epith Cells 5-10 /hpf H Urine Bacteria Few (2-10) H (None) Ur Culture Indicated? Cult not indicated Micro UA Comment Not Reportable Discharge Plan Departure Patient Disposition: Home, Self-Care Clinical Impression: Appendicitis Discharge Date/Time: 12/24/17 16:49 Interventions: ED Discharge Assessment Last Done: 12/24/17 16:40 Instructions: DI for Abdominal Pain-Adult Activity Restrictions/Additional Instructions: Please return as we talked about if you have acutely worsening pain, or new fever or vomiting or other worsening symptoms, otherwise check in at the main desk on December 26 at a.m. for your colonoscopy with Dr. Mueller so she can do further investigation on the mass that was seen on the CT scan and your inflammed appendix. I have sent an antibiotic prescription to [facility] for you that Dr. Mueller would like you to take Prescriptions: New amoxicillin-pot clavulanate [Augmentin] 875-125 mg tablet 1 tab PO Q12H Qty: 20 RF: 0 No Action latanoprost 0.005 % drops 1 drp ophthalmic (eye) DIRECTED RF: 0 losartan-hydrochlorothiazide 50-12.5 mg tablet 1 tab PO DAILY RF: 0 Calcium 1 tab PO DAILY RF: 0 omega 2-xkf-rhs-fish oil [Carol[place]-3] 350 mg-235 mg- 90 mg-597 mg Capsule, Delayed Release(Dr/Ec) 1 cap PO DAILY RF: 0 aspirin [Aspir-81] 81 mg Tablet,Delayed Release (Dr/Ec) 1 tab PO DAILY RF: 0 multivitamin Tablet 1 tab PO DAILY RF: 0 Referrals: Aura Mueller MD [Physician] - Sayra Russo MD [Primary Care Provider] - <Carole Palomo DO - Last Filed: 12/26/17 13:35> Cosign ED Attending Cosignature Attestation: I was immediately available in the department for consultation. Documentation has been reviewed. I agree with assessment and plan.
[2017-12-24 13:49] LABS: Hematocrit 51.6 % (36-46); Hemoglobin 16.8 g/dL (12.0-16.0); Mean Corpuscular HGB Conc 32.6 % (30-36); Mean Corpuscular Hemoglobin 29.6 PG (26-34); Mean Corpuscular Volume 90.7 fL (80-100); Platelet Count 181 X10^3/uL (150-400); Red Blood Cell Count 5.69 X10^6/uL (4.0-5.2); White Blood Cell Count 12.6 X10^3/uL (4.5-11.0)
[2017-12-24] MEDS: KETOROLAC 60 MG/2 ML VIAL 15 MG IV (13:49)
[2017-12-24 13:52] LABS: Add Manual Diff / Slide Review YES
[2017-12-24 13:56] LABS: INR 1.1 (0.9-1.3)
[2017-12-24 13:58] LABS: PTT Partial Thromboplastin Tim 31 SECONDS (26.4-36.2)
[2017-12-24 14:00] LABS: Alanine Aminotransferase 60 IU/L (9-52); Albumin 4.2 g/dL (3.5-5.0); Albumin Globulin Ratio 1.2 (1.0-2.8); Alkaline Phosphatase 107 U/L (38-126); Aspartate Aminotransferase 60 IU/L (14-36); BUN Creatinine Ratio 12.9 (6-22); Bilirubin Total 0.8 mg/dL (0.2-1.3); Blood Urea Nitrogen 9 mg/dL (7-17); Calcium 9.2 mg/dL (8.4-10.2); Carbon Dioxide 30 mmol/L (22-32); Chloride 102 mmol/L (98-107); Estimated Glomerular Filt Rate > 60.0 mL/min (>60); Globulin 3.5 g/dL (1.7-4.1); Glucose 80 mg/dL (80-110); HEMOLYSIS < 15 (0-50); Lipase 22 U/L (23-300); Potassium 3.7 mmol/L (3.4-5.1); Sodium 142 mmol/L (137-145); Total Protein 7.7 g/dL (6.3-8.2)
[2017-12-24 14:18] LABS: Neutrophils Absolute Manual 5670 /uL (3000-5900); Total Cells Counted 100
[2017-12-24 14:19] LABS: Smudge Cells 2+
[2017-12-24 14:42] VITALS: BP 147/83; PULSE 75; RESP 12; O2SAT 99
[2017-12-24 16:06] VITALS: BP 144/95; PULSE 78; RESP 14; O2SAT 100
--- NOTE | 2017-12-24 16:19 | PC.NURSE ---
dr. george here to see
[2017-12-24 16:22] LABS: Appearance Urine UA CLEAR; Bilirubin Urine UA NEGATIVE (NEGATIVE); Color Urine UA YELLOW; Glucose Urine UA NEGATIVE (Normal); Ketones Urine UA TRACE (NEGATIVE); Leukocyte Esterase Urine UA NEGATIVE (NEGATIVE); Nitrite Urine UA Negative (Negative); Occult Blood Urine UA TRACE-LYSED (Negative); Protein Urine UA NEGATIVE (Negative); Specific Gravity Urine UA <=1.005 (1.000-1.035); Urobilinogen Urine UA 0.2 E.U./dL (0.2)
[2017-12-24 16:37] LABS: Bacteria Urine Few (2-10); Culture Indicated Urine Cult Not Indicated; RBC Urine 0-1/HPF (0-5/HPF); Squamous Epithelial Cell Urine 5-10 /HPF; WBC Urine 1-5/HPF (0-5/HPF)
--- NOTE | 2017-12-24 16:43 | PM.CN ---
History of Present Illness Date Patient Seen: 12/24/17 Time Patient Seen: 16:43 Chief complaint: PAIN LOWER RIGHT ABDOMINAL AREA FOR ABOUT 3 DAYS Reason for consult: Right lower quadrant pain Requesting provider: Michelle Lemus Narrative: Maria Dolores is a pleasant and generally healthy 72-year-old lady who presented to the emergency room complaining of right-sided abdominal pain. She was seen and evaluated by our staff there and found to have a cecal mass and inflammation involving the appendix. This mass was noted to be very suspicious for malignancy and I was consulted for management. The patient reports that she had a colonoscopy probably 20 years ago. At that time she did not have any polyps. She does not have any family history of colon cancer. She denies any unexplained weight loss. She really feels that this pain was only present for about 3 days. [facility] Medical History CLL (chronic lymphocytic leukemia) (Chronic) Erythrocytosis (Chronic) Glaucoma (Chronic) H/O: hysterectomy (Resolved) Other bursal cyst, unspecified wrist (Resolved) Tubal ligation status (Resolved) Social History Smoking Status: Current every day smoker alcohol intake: current substance use type: does not use Meds Home Medications Medication Instructions Recorded Confirmed Type aspirin [Aspir-81] 1 tab PO DAILY 11/15/17 12/24/17 History multivitamin 1 tab PO DAILY 11/15/17 12/24/17 History omega 7-txu-ztu-fish oil [[place]-3] 1 cap PO DAILY 11/15/17 12/24/17 History Calcium 1 tab PO DAILY 12/24/17 12/24/17 History amoxicillin-pot clavulanate 1 tab PO Q12H #20 tab 12/24/17 Rx [Augmentin] latanoprost 1 drp OPHTHALMIC (EYE) DIRECTED 12/24/17 12/24/17 History losartan-hydrochlorothiazide 1 tab PO DAILY 12/24/17 12/24/17 History Allergies Allergy/AdvReac Type Severity Reaction Status Date / Time lisinopril Allergy Unknown SWELLING Unverified 10/02/17 12:03 LIPS, TONGUE Review of Systems Review of Systems All systems reviewed & are unremarkable except as noted in HPI and below Exam Vital Signs (past 8 hours): - 12/24/17 12:51 12/24/17 14:42 12/24/17 16:06 Temperature 96.7 F L Pulse Rate 92 H 75 78 Respiratory Rate 20 12 14 Blood Pressure 131/93 H Blood Pressure [Right Arm] 147/83 H 144/95 H Pulse Oximetry 95 99 100 Oxygen Delivery Method Room Air Narrative Exam Narrative: Pleasant and fit lady who appears much younger than her stated age. HEENT: Normocephalic and atraumatic, pupils equal round reactive to light accommodation with anicteric sclera Lungs: Clear to auscultation bilaterally Heart: Regular rate and rhythm Abdomen: Soft, tender to palpation in the right lower quadrant and right upper quadrant. Some voluntary guarding but no true rebound. No hernias appreciated. Extremities: Warm and well perfused without edema. Objective Labs Result Diagrams: 12/24/17 13:40 12/24/17 13:40 Labs: Laboratory Results - last 24 hr 12/24/17 12/24/17 12/24/17 13:40 13:40 13:40 WBC 12.6 H RBC 5.69 H Hgb 16.8 H Hct 51.6 H MCV 90.7 MCH 29.6 MCHC 32.6 RDW 15.0 H Plt Count 181 Neut % (Auto) Not Reportable Lymph % (Auto) Not Reportable [place] % (Auto) Not Reportable Eos % (Auto) Not Reportable Baso % (Auto) Not Reportable Total Counted 100 Seg Neutrophils % 45.0 Lymphocytes % (Manual) 40.0 Atypical Lymphs % 9.0 H Monocytes % (Manual) 6.0 Neutrophils # (Manual) 5670 RBC Morphology Not Reportable PT 12.0 INR 1.1 APTT 31 Sodium 142 Potassium 3.7 Chloride 102 Carbon Dioxide 30 BUN 9 Creatinine 0.70 Estimated GFR > 60.0 BUN/Creatinine Ratio 12.9 Glucose 80 Calcium 9.2 Total Bilirubin 0.8 AST 60 H ALT 60 H Alkaline Phosphatase 107 Total Protein 7.7 Albumin 4.2 Globulin 3.5 Albumin/Globulin Ratio 1.2 Lipase 22 L Urine Color Urine Appearance Urine pH Ur Specific [place] Urine Protein Urine Glucose (UA) Urine Ketones Urine Occult Blood Urine Nitrate Urine Bilirubin Urine Urobilinogen Ur Leukocyte Esterase Urine RBC Urine WBC Ur Squamous Epith Cells Urine Bacteria Ur Culture Indicated? Micro UA Comment 12/24/17 16:19 WBC RBC Hgb Hct MCV MCH MCHC RDW Plt Count Neut % (Auto) Lymph % (Auto) [place] % (Auto) Eos % (Auto) Baso % (Auto) Total Counted Seg Neutrophils % Lymphocytes % (Manual) Atypical Lymphs % Monocytes % (Manual) Neutrophils # (Manual) RBC Morphology PT INR APTT Sodium Potassium Chloride Carbon Dioxide BUN Creatinine Estimated GFR BUN/Creatinine Ratio Glucose Calcium Total Bilirubin AST ALT Alkaline Phosphatase Total Protein Albumin Globulin Albumin/Globulin Ratio Lipase Urine Color Yellow Urine Appearance Clear Urine pH 5.0 Ur Specific [place] <=1.005 Urine Protein Negative Urine Glucose (UA) Negative Urine Ketones Trace H Urine Occult Blood Trace-lysed Urine Nitrate Negative Urine Bilirubin Negative Urine Urobilinogen 0.2 Ur Leukocyte Esterase Negative Urine RBC 0-1/hpf Urine WBC 1-5/hpf Ur Squamous Epith Cells 5-10 /hpf H Urine Bacteria Few (2-10) H Ur Culture Indicated? Cult not indicated Micro UA Comment Not Reportable [address] [address] [address] Scan Report Signed Patient: Maria Dolores Shoemaker MR#: [id number] : 1945 Acct:[id number] Age/Sex: 72 / F Date of Service: 12/24/17 Loc: ED Accession Number: [id number] Procedure: CT abdomen pelvis w con Ordering Provider: Michelle Lemus P.A-C PROCEDURE: CT ABDOMEN PELVIS W CON INDICATIONS: Abdominal pain, most RUQ TECHNIQUE: After the administration of oral and intravenous contrast, 5 mm thick sections acquired from the diaphragms to the symphysis. 5 mm thick coronal and sagittal reformats were performed. For radiation dose reduction, the following was used: automated exposure control, adjustment of mA and/or kV according to patient size. COMPARISON: None. FINDINGS: Image quality: Excellent. ABDOMEN: Lung bases: There is mild dependent atelectasis bilaterally. Heart size is normal. Solid organs: There is hypoattenuation of the liver consistent with fatty infiltration. No discrete hepatic mass identified. Gallbladder appears within normal limits without calcified gallstones. Biliary system is non-dilated. Pancreas enhances normally. Spleen is normal in size and enhancement. No adrenal nodules. Kidneys are normal in size and enhancement, without hydronephrosis. Peritoneum and bowel: There is prominent masslike lobulated wall thickening in the cecum also involving the terminal ileum. No associated dilatation of the small bowel to suggest small bowel obstruction at this time. There is associated mild dilatation and wall thickening of the appendix which measures up to approximately 1 cm in diameter. There is posterior wall enhancement and mild fat stranding. Findings are suggestive of acute appendicitis without evidence of perforation. There is colonic diverticulosis in the descending and sigmoid colon without evidence of acute diverticulitis. No free fluid or air. Nodes and vessels: No retroperitoneal or mesenteric adenopathy. Aorta and inferior vena cava are normal in caliber. Miscellaneous: No ventral hernias. PELVIS: Genitourinary: Bladder wall thickness is normal. Miscellaneous: No inguinal hernias or adenopathy. Bones: No suspicious bony lesions. No vertebral body compression fractures. IMPRESSION: 1. Lobulated cecal wall thickening highly suspicious for a neoplasm such as adenocarcinoma. There is involvement of the terminal ileum although there is no evidence of bowel obstruction at this time. The differential includes an infectious or inflammatory colitis although this is considered less likely given the degree of wall thickening. Recommend correlation with colonoscopy. 2. Abnormal mild distention and wall thickening of the appendix with associated inflammatory fat changes suggestive of associated acute appendicitis. Findings discussed with Cherrie Lemus PA-C on 12/24/17 at 2:40 PM. Dictated by: Russ Givens M.D. on 12/24/2017 at 14:29 Approved by: Russ Givens M.D. on 12/24/2017 at 14:48 Assessment & Plan Plan: Assessment/Plan Narrative: Very pleasant 72-year-old lady with a cecal abnormality on CT scan. This seems to be causing some degree of subacute appendicitis. Her pain pattern is more consistent with a slowly developing process then with a sudden acute onset. We talked about the the differential diagnosis of a cecal mass including infection and neoplasm. After careful discussion of the risks and benefits, I have recommended antibiotics to treat the current infectious process in the appendix and a colonoscopy planned for the day after tomorrow. This will give her a chance to prepped appropriately and also time for the antibiotics to start to take effect. Depending on the results of the colonoscopy, we may need to proceed with colectomy on Saturday. The patient has expressed an understanding of this plan and a desire to proceed with colonoscopy on .
--- NOTE | 2017-12-24 16:48 | P.CONS_ITS ---
History of Present Illness Date Patient Seen: 12/24/17 Time Patient Seen: 16:43 Chief complaint: PAIN LOWER RIGHT ABDOMINAL AREA FOR ABOUT 3 DAYS Reason for consult: Right lower quadrant pain Requesting provider: Michelle Lemus Narrative: Maria Dolores is a pleasant and generally healthy 72-year-old lady who presented to the emergency room complaining of right-sided abdominal pain. She was seen and evaluated by our staff there and found to have a cecal mass and inflammation involving the appendix. This mass was noted to be very suspicious for malignancy and I was consulted for management. The patient reports that she had a colonoscopy probably 20 years ago. At that time she did not have any polyps. She does not have any family history of colon cancer. She denies any unexplained weight loss. She really feels that this pain was only present for about 3 days. [facility] Medical History CLL (chronic lymphocytic leukemia) (Chronic) Erythrocytosis (Chronic) Glaucoma (Chronic) H/O: hysterectomy (Resolved) Other bursal cyst, unspecified wrist (Resolved) Tubal ligation status (Resolved) Social History Smoking Status: Current every day smoker alcohol intake: current substance use type: does not use Meds Home Medications Medication Instructions Recorded Confirmed Type aspirin [Aspir-81] 1 tab PO DAILY 11/15/17 12/24/17 History multivitamin 1 tab PO DAILY 11/15/17 12/24/17 History omega 0-ahz-leg-fish oil [[place]-3] 1 cap PO DAILY 11/15/17 12/24/17 History Calcium 1 tab PO DAILY 12/24/17 12/24/17 History amoxicillin-pot clavulanate 1 tab PO Q12H #20 tab 12/24/17 Rx [Augmentin] latanoprost 1 drp OPHTHALMIC (EYE) DIRECTED 12/24/17 12/24/17 History losartan-hydrochlorothiazide 1 tab PO DAILY 12/24/17 12/24/17 History Allergies Allergy/AdvReac Type Severity Reaction Status Date / Time lisinopril Allergy Unknown SWELLING Unverified 10/02/17 12:03 LIPS, TONGUE Review of Systems Review of Systems All systems reviewed & are unremarkable except as noted in HPI and below Exam Vital Signs (past 8 hours): - 12/24/17 12:51 12/24/17 14:42 12/24/17 16:06 Temperature 96.7 F L Pulse Rate 92 H 75 78 Respiratory Rate 20 12 14 Blood Pressure 131/93 H Blood Pressure [Right Arm] 147/83 H 144/95 H Pulse Oximetry 95 99 100 Oxygen Delivery Method Room Air Narrative Exam Narrative: Pleasant and fit lady who appears much younger than her stated age. HEENT: Normocephalic and atraumatic, pupils equal round reactive to light accommodation with anicteric sclera Lungs: Clear to auscultation bilaterally Heart: Regular rate and rhythm Abdomen: Soft, tender to palpation in the right lower quadrant and right upper quadrant. Some voluntary guarding but no true rebound. No hernias appreciated. Extremities: Warm and well perfused without edema. Objective Labs Result Diagrams: 12/24/17 13:40 12/24/17 13:40 Labs: Laboratory Results - last 24 hr 12/24/17 12/24/17 12/24/17 13:40 13:40 13:40 WBC 12.6 H RBC 5.69 H Hgb 16.8 H Hct 51.6 H MCV 90.7 MCH 29.6 MCHC 32.6 RDW 15.0 H Plt Count 181 Neut % (Auto) Not Reportable Lymph % (Auto) Not Reportable [place] % (Auto) Not Reportable Eos % (Auto) Not Reportable Baso % (Auto) Not Reportable Total Counted 100 Seg Neutrophils % 45.0 Lymphocytes % (Manual) 40.0 Atypical Lymphs % 9.0 H Monocytes % (Manual) 6.0 Neutrophils # (Manual) 5670 RBC Morphology Not Reportable PT 12.0 INR 1.1 APTT 31 Sodium 142 Potassium 3.7 Chloride 102 Carbon Dioxide 30 BUN 9 Creatinine 0.70 Estimated GFR > 60.0 BUN/Creatinine Ratio 12.9 Glucose 80 Calcium 9.2 Total Bilirubin 0.8 AST 60 H ALT 60 H Alkaline Phosphatase 107 Total Protein 7.7 Albumin 4.2 Globulin 3.5 Albumin/Globulin Ratio 1.2 Lipase 22 L Urine Color Urine Appearance Urine pH Ur Specific [place] Urine Protein Urine Glucose (UA) Urine Ketones Urine Occult Blood Urine Nitrate Urine Bilirubin Urine Urobilinogen Ur Leukocyte Esterase Urine RBC Urine WBC Ur Squamous Epith Cells Urine Bacteria Ur Culture Indicated? Micro UA Comment 12/24/17 16:19 WBC RBC Hgb Hct MCV MCH MCHC RDW Plt Count Neut % (Auto) Lymph % (Auto) [place] % (Auto) Eos % (Auto) Baso % (Auto) Total Counted Seg Neutrophils % Lymphocytes % (Manual) Atypical Lymphs % Monocytes % (Manual) Neutrophils # (Manual) RBC Morphology PT INR APTT Sodium Potassium Chloride Carbon Dioxide BUN Creatinine Estimated GFR BUN/Creatinine Ratio Glucose Calcium Total Bilirubin AST ALT Alkaline Phosphatase Total Protein Albumin Globulin Albumin/Globulin Ratio Lipase Urine Color Yellow Urine Appearance Clear Urine pH 5.0 Ur Specific [place] <=1.005 Urine Protein Negative Urine Glucose (UA) Negative Urine Ketones Trace H Urine Occult Blood Trace-lysed Urine Nitrate Negative Urine Bilirubin Negative Urine Urobilinogen 0.2 Ur Leukocyte Esterase Negative Urine RBC 0-1/hpf Urine WBC 1-5/hpf Ur Squamous Epith Cells 5-10 /hpf H Urine Bacteria Few (2-10) H Ur Culture Indicated? Cult not indicated Micro UA Comment Not Reportable [address] [address] [address] Scan Report Signed Patient: Maria Dolores Shoemaker MR#: [id number] : 1945 Acct:[id number] Age/Sex: 72 / F Date of Service: 12/24/17 Loc: ED Accession Number: [id number] Procedure: CT abdomen pelvis w con Ordering Provider: Michelle Lemus P.A-C PROCEDURE: CT ABDOMEN PELVIS W CON INDICATIONS: Abdominal pain, most RUQ TECHNIQUE: After the administration of oral and intravenous contrast, 5 mm thick sections acquired from the diaphragms to the symphysis. 5 mm thick coronal and sagittal reformats were performed. For radiation dose reduction, the following was used: automated exposure control, adjustment of mA and/or kV according to patient size. COMPARISON: None. FINDINGS: Image quality: Excellent. ABDOMEN: Lung bases: There is mild dependent atelectasis bilaterally. Heart size is normal. Solid organs: There is hypoattenuation of the liver consistent with fatty infiltration. No discrete hepatic mass identified. Gallbladder appears within normal limits without calcified gallstones. Biliary system is non-dilated. Pancreas enhances normally. Spleen is normal in size and enhancement. No adrenal nodules. Kidneys are normal in size and enhancement, without hydronephrosis. Peritoneum and bowel: There is prominent masslike lobulated wall thickening in the cecum also involving the terminal ileum. No associated dilatation of the small bowel to suggest small bowel obstruction at this time. There is associated mild dilatation and wall thickening of the appendix which measures up to approximately 1 cm in diameter. There is posterior wall enhancement and mild fat stranding. Findings are suggestive of acute appendicitis without evidence of perforation. There is colonic diverticulosis in the descending and sigmoid colon without evidence of acute diverticulitis. No free fluid or air. Nodes and vessels: No retroperitoneal or mesenteric adenopathy. Aorta and inferior vena cava are normal in caliber. Miscellaneous: No ventral hernias. PELVIS: Genitourinary: Bladder wall thickness is normal. Miscellaneous: No inguinal hernias or adenopathy. Bones: No suspicious bony lesions. No vertebral body compression fractures. IMPRESSION: 1. Lobulated cecal wall thickening highly suspicious for a neoplasm such as adenocarcinoma. There is involvement of the terminal ileum although there is no evidence of bowel obstruction at this time. The differential includes an infectious or inflammatory colitis although this is considered less likely given the degree of wall thickening. Recommend correlation with colonoscopy. 2. Abnormal mild distention and wall thickening of the appendix with associated inflammatory fat changes suggestive of associated acute appendicitis. Findings discussed with Cherrie Lemus PA-C on 12/24/17 at 2:40 PM. Dictated by: Russ Givens M.D. on 12/24/2017 at 14:29 Approved by: Russ Givens M.D. on 12/24/2017 at 14:48 Assessment & Plan Plan: Assessment/Plan Narrative: Very pleasant 72-year-old lady with a cecal abnormality on CT scan. This seems to be causing some degree of subacute appendicitis. Her pain pattern is more consistent with a slowly developing process then with a sudden acute onset. We talked about the the differential diagnosis of a cecal mass including infection and neoplasm. After careful discussion of the risks and benefits, I have recommended antibiotics to treat the current infectious process in the appendix and a colonoscopy planned for the day after tomorrow. This will give her a chance to prepped appropriately and also time for the antibiotics to start to take effect. Depending on the results of the colonoscopy, we may need to proceed with colectomy on Saturday. The patient has expressed an understanding of this plan and a desire to proceed with colonoscopy on .
== END 2017-12-24 16:49 | disposition home or self-care (01) ==
PROVIDERS: Emergency Provider Internal Medicine; PCP Internal Medicine
DX: K37 Unspecified appendicitis (principal)
CPT/HCPCS: 36591; 74177; 80053; 81001; 83690; 85025; 85610; 85730; 99282; J1885; Q9967

== ENCOUNTER 2017-12-26 08:06 | Day surgery (SDC) | payer MEDICARE, SELFPAY ==
[2017-12-26] VITALS (11 sets, daily range): BP systolic 108–147; BP diastolic 76–96; PULSE 71–83; RESP 10–16; TEMP 35.8–36.3; O2SAT 92–98
--- NOTE | 2017-12-26 | PATH_ITS ---
[facility] Accession Number: [id number] . 01 Material submitted: . CECAL POLYP . 01 Clinical history: . A: POLYP X 3 (COLONOSCOPY PROCEDURE) . 02 Diagnosis: Cecum, Polyps x3, Biopsies: Multiple fragments of tubular adenoma. MRV/12/30/2017 . 02 Electronically signed: . Sarahi Coulter MD, Pathologist NPI- [id number] . 01 Gross description: . One specimen is received in formalin, labeled [place], Maria Dolores and cecal polyp, and consists of multiple roberts tissue fragments and roberts polypoid tissue, 0.3-0.8 cm in greatest dimension and 2.5 x 1.5 x 0.3 cm in aggregate. The larger polyps are sectioned, and the specimen is submitted entirely in cassette A1. (ERIC:[id number]) /FRR . 02 Pathologist provided ICD-10: D12.0 . 02 CPT . 369467 Performed at: 01 [facility] [address], [place], [place] [id number] MD Russ Jay MD Phone: [phone] Performed at: 02 [facility] [address] [place], [place] [id number] MD Jethro Presley MD Phone: [phone]
[2017-12-26] MEDS: LACTATED RINGERS 1,000 ML 42 ML IV (09:35)
[2017-12-26] MEDS: fentaNYL 250 MCG/5 ML INJ IV (10:25)
[2017-12-26] MEDS: MIDAZOLAM 5 MG/5 ML VIAL IV (10:26)
--- NOTE | 2017-12-26 11:25 | SUR.PHASEI ---
1124: Dr Mueller at bedside speaking with Pt. She has a very large cecal polyp/mass that needs to be removed tomorrow in the OR. Pt wishes to do it tomorrow morning. No further prep is needed, she is on the OR schedule for an 0900 case, she will need to shower tonight with Hibbicleanse, and needs to be NPO after MN. Dr Mueller spoke to Ned and has given him the information and he is on his way into the hospital now.
--- NOTE | 2017-12-26 11:49 | SUR.PHASEII ---
Pt has transitioned to Phase II Care as planned. Update given to Ned and all questions were answered. Dr Mueller spoke to him earlier and an update was given to him once she was out of the Endo Suite. Pt still sleepy, at bedside.
--- NOTE | 2017-12-26 17:42 | PM.PREOP ---
Pre-operative Note Interval Note Pre-op Check: History & Physical Reviewed by Physician ASA Class (for procedural sedation): II
--- NOTE | 2017-12-26 17:43 | PM.OP.1 ---
Operative Date/Time/Diagnoses - Date of procedure: 12/26/17 Time of procedure: 10:25 Pre-op diagnosis: Cecal mass on CT scan Post-op diagnosis: same Procedure & Clinicians Procedure: Colonoscopy to the cecum with polypectomy x2 and biopsy Same procedure as scheduled: Yes Indications: Cecal mass Surgeon: Aura Mueller Click Yes if Unassisted: Yes Anesthesia Type: Sedation (Fentanyl and Versed) Operative Notes Findings: 1. Excellent prep 2. Mass within the cecum covering approximately 1/4 of the wall 3. The 2nd cecal mass approximately 1-1/2 to 2 cm in total dimension-this 1 was completely removed and retained for pathology 4. 5 mm polyp just distal to the opening of the cecum 5. Pandiverticulosis with the most impressive been pronounced disease in the sigmoid colon with multiple false passages enlarged and small tics 6. Grade 1-2 internal hemorrhoids Closure Type: not applicable Specimen(s): other (Cecal polyps) Estimated Blood Loss (mL): 1 Procedure in detail: After obtaining informed consent, the patient was brought to the GI suite and placed in the left lateral decubitus position on the examination table. After placement of appropriate monitors, the patient was given incremental doses of Versed and Fentanyl until an appropriate level of sedation was achieved. A time out was held per SCOAP protocol. A digital rectal examination was performed and did not reveal any masses or obstructing lesions. The colonoscope was gently passed into the patient's anus and the entire colon navigated to the level of the cecum with minimal difficulty. Once in the cecum, we noted 3 separate lesions. The 1st lesion was a little less than a cm and semi pedunculated. The 2nd was 1 or 2 cm and also semi pedunculated although flattened out beyond the stalk. The 3rd was large and flat covering approximately 1/4 of the cecal wall. This 3rd lesion was only biopsied as we were unable to remove it due to its size and the risk of perforation. The scope was withdrawn being sure to go before and beyond all mucosal folds and prominences and get an excellent examination. The findings are noted above. At the level of the rectal vault, the scope was retroflexed and the internal anal canal was examined. The scope was straightened and air aspirated from the colon. The instrument was removed from the patient's body and the procedure was concluded. The patient was allowed to awaken from sedation without difficulty and taken to the post-anesthesia care unit in good condition. Complications: none Condition: stable Disposition: PACU Plan for aftercare: I have discussed the findings with the patient and her . I have recommended a right hemicolectomy in the very near future. They have expressed a desire to complete this procedure. There is an opening in the schedule in the morning and so the patient will return at that time.
== END 2017-12-26 13:11 ==
PROVIDERS: PCP Internal Medicine; Visit Provider Surgery
PROC: 0DJD8ZZ Inspection of Lower Intestinal Tract, Via Natural or Artificial Opening Endoscopic (ICD-10-PCS; CPT 45378; principal; 2017-12-26 09:00)
DX: R93.3 Abnormal findings on diagnostic imaging of other parts of digestive tract (principal); R10.31 Right lower quadrant pain; F17.210 Nicotine dependence, cigarettes, uncomplicated; K57.30 Diverticulosis of large intestine without perforation or abscess without bleeding; K64.0 First degree hemorrhoids; D12.0 Benign neoplasm of cecum
CPT/HCPCS: 45380; J2250; J3010

== ENCOUNTER 2017-12-27 07:34 | Inpatient (IN) | payer MEDICARE, SELFPAY ==
[2017-12-27] VITALS (17 sets, daily range): BP systolic 138–171; BP diastolic 62–107; PULSE 15–85; RESP 10–72; TEMP 36–37.2; O2SAT 91–100; BMI 22.9
[2017-12-27] MEDS: LACTATED RINGERS 1,000 ML 42 ML IV ×2 (08:22→10:06)
[2017-12-27] MEDS: CEFOTETAN 2 GM/50 ML PIGGYBACK IV (08:25)
[2017-12-27 08:47] LABS: Carcinoembryonic Antigen 2.3 ng/mL (0.1-3.0)
--- NOTE | 2017-12-27 08:55 | PM.PREOP ---
Pre-operative Note Interval Note Pre-op Check: History & Physical Reviewed by Physician
--- NOTE | 2017-12-27 09:22 | SUR.OPER ---
Supine on padded OR bed with pink pad, head on pillow, arms secured on padded arm boards at <90 degrees abduction, legs uncrossed, safety belt at thigh, tape over blanket over lower legs, footboard at foot of bed.
[2017-12-27] MEDS: LIDOCAINE 1% 30 ML INJ INJ (10:09)
--- NOTE | 2017-12-27 10:52 | PM.OP.1 ---
Operative Date/Time/Diagnoses Date of procedure: 12/27/17 Time of procedure: 10:52 Pre-op diagnosis: Cecal mass Post-op diagnosis: same Procedure & Clinicians Procedure: Laparoscopic right hemicolectomy Same procedure as scheduled: Yes Indications: Multiple right colon polyps and an unresectable cecal mass Surgeon: Aura Mueller Click Yes if Unassisted: Yes Anesthesia Type: General (Kotlarczyk) and Local Operative Notes Findings: Large mass in the right colon appearing to originate in the cecum Closure Type: primary Specimen(s): none sent (Right colon) Implants & Drains: Estimated Blood Loss (mL): 50 Procedure in detail: After obtaining informed consent, the patient was taken to the operating room and placed in the supine position on the operating table. Following successful induction of general endotracheal anesthesia, appropriate padding of all bony prominences, and placement of appropriate monitors, the abdomen is prepped and draped in standard surgical fashion. A time-out was held per SCOAP protocol. Following infiltration with local anesthetic to create a field block, an incision was created superior to the umbilicus and carried down through the skin subcutaneous tissue to reveal the fascia below. Two 0 Vicryl retention sutures were placed on either side of midline and the abdomen was entered under direct vision using a 15 blade scalpel. A 10 mm blunt Marcum balloon trocar was placed in the abdominal cavity and the abdomen was insufflated to 15 mm of mercury pressure. The camera was placed in the abdomen and we did an initial survey. The liver spleen and stomach all are normal in appearance and without any obvious lesions. Examining the right lower quadrant, the cecum appeared to be somewhat distended. A 5 mm trocar was now placed midline between the umbilicus and the pubis and a 2nd 5 mm trocar placed in the right upper quadrant, both after infiltration of local anesthetic. This allowed us to manipulate the bowel and see more clearly. The cecum was grasped and rotated medially revealing white line of Toldt. The cecum itself was quite stiff and seemed to be attached to the lateral abdominal wall. Using the Harmonic scalpel. The white line of Toldt was divided allowing us to mobilize the cecum medially. The the retroperitoneal attachments of the distal ileum were also divided allowing us to rotate again medially. We turned our attention to the right upper quadrant. The omentum and ligamentous attachments of the colon to the right upper quadrant were all divided under direct vision using the Thunder beat device. The middle colic artery was identified. At this point the laparoscopic portion of the procedure was concluded. All instruments and trocars removed under direct vision. The midline incision was now extended superiorly and a small Nat device was placed in the abdominal cavity. The right colon was exteriorized through this device. A PIERO stapling device was used to divide the colon just proximal to the middle colic artery. The same stapling device was used to divide the ileum approximately 5 cm proximal to the ileocecal valve. The mesentery was divided at its base using number next scalp hole and the specimen passed from the table. The the right colic artery was clamped and a suture ligature followed by a 0 silk free tie were applied. We now turned our attention to reestablishing continuity of the GI tract. A stapled anastomosis was created between the distal ileum and the transverse colon. This was oversewn with interrupted silk sutures. The opening was checked for patency and found to be at least a cm. The anastomosis was then placed back in the abdominal cavity and the abdomen was irrigated with 2 L of warm saline solution. It was aspirated free of all fluid and particulate matter. The Danyel device was removed and all dirty instruments removed from the table. The abdominal cavity was irrigated once again and aspirated free of all fluid. The in the midline incision was closed with interrupted 1 Prolene sutures and Monocryl was placed in the skin. All sponge, needle, and instrument counts were correct at the conclusion of the case. The patient was allowed awaken from anesthesia without difficulty and taken to the postanesthesia care unit in good condition. Complications: none Condition: stable Disposition: PACU Plan for aftercare: [facility]. [facility] and [facility] 2. Continue cefotetan for 24 hr 3. Await the return of bowel function
--- NOTE | 2017-12-27 11:14 | SUR.PHASEI ---
sleeping, easily arrousable to verbal stimuli, continues to deny pain or nausea.
[2017-12-27] MEDS: ONDANSETRON 4 MG/2 ML INJ IV ×2 (11:25→17:26)
--- NOTE | 2017-12-27 11:27 | SUR.PHASEI ---
c/o nausea, medicated per orders.
[2017-12-27] MEDS: fentaNYL 100 MCG/2 ML INJ 25 MCG IV ×2 (11:30→11:41)
[2017-12-27] MEDS: METOCLOPRAMIDE 10 MG/2 ML INJ IV (11:34)
--- NOTE | 2017-12-27 11:37 | SUR.PHASEI ---
c/o continued nasuea with urge to vomit despite zofran. Medicated per orders with Reglan, breathing queaze ease. states pain has decreased somewhat.
--- NOTE | 2017-12-27 11:42 | SUR.PHASEI ---
states nausea improved. sleeping, appears more relaxed.
[2017-12-27] MEDS: DEXTROSE 5%-0.45% NS 1,000 ML 125 ML IV (13:48)
[2017-12-27] MEDS: HYDROMORPHONE PCA 6 MG/30 ML PCA.VIAL IV ×2 (13:49→21:12)
[2017-12-27] MEDS: KETOROLAC 15 MG/ML VIAL IV ×2 (13:53→18:30)
[2017-12-28] VITALS (7 sets, daily range): BP systolic 124–169; BP diastolic 63–91; PULSE 63–81; RESP 12–16; TEMP 36.1–37.5; O2SAT 88–96
[2017-12-28] MEDS: KETOROLAC 15 MG/ML VIAL IV ×4 (00:12→17:36)
[2017-12-28] MEDS: DEXTROSE 5%-0.45% NS 1,000 ML 125 ML IV ×3 (04:19→18:03)
[2017-12-28 05:35] LABS: Add Manual Diff / Slide Review NO; Basophils Percent Auto 0.2 % (0-2); Hematocrit 42.3 % (36-46); Hemoglobin 14.1 g/dL (12.0-16.0); Lymphocytes Percent Auto 28.7 % (25-40); Mean Corpuscular HGB Conc 33.5 % (30-36); Mean Corpuscular Volume 89.7 fL (80-100); Monocytes Percent Auto 5.9 % (3-14); Neutrophils Absolute Auto 12400 /uL (3000-5900); Neutrophils Percent Auto 65.2 % (50-75); Platelet Count 158 X10^3/uL (150-400); Red Blood Cell Count 4.71 X10^6/uL (4.0-5.2); Red Cell Distribution Width 15.1 % (11.6-14.8)
[2017-12-28 05:41] LABS: Alanine Aminotransferase 56 IU/L (9-52); Albumin 3.3 g/dL (3.5-5.0); Albumin Globulin Ratio 1.1 (1.0-2.8); Alkaline Phosphatase 63 U/L (38-126); Aspartate Aminotransferase 43 IU/L (14-36); BUN Creatinine Ratio 11.4 (6-22); Bilirubin Total 0.6 mg/dL (0.2-1.3); Blood Urea Nitrogen 8 mg/dL (7-17); Calcium 8.2 mg/dL (8.4-10.2); Carbon Dioxide 28 mmol/L (22-32); Chloride 99 mmol/L (98-107); Estimated Glomerular Filt Rate > 60.0 mL/min (>60); Glucose 120 mg/dL (80-110); HEMOLYSIS < 15 (0-50); Potassium 3.3 mmol/L (3.4-5.1); Sodium 136 mmol/L (137-145); Total Protein 6.3 g/dL (6.3-8.2)
[2017-12-28] MEDS: HYDROMORPHONE PCA 6 MG/30 ML PCA.VIAL IV ×3 (06:36→20:45)
--- NOTE | 2017-12-28 08:30 | PM.PNPO.1 ---
Subjective Date Patient Seen: 12/28/17 Time Patient Seen: 08:30 Interval history: Maria Dolores is in excellent spirits today. She is already out of bed and sitting in a chair. She reports her pain is pretty minimal. She is thirsty and she wants something to drink. She has some questions about what we found yesterday and what it means for her. She very much wants to know if she has cancer. Exam Vital Signs (past 8 hours): - 12/28/17 03:00 Temperature 98.6 F Pulse Rate 72 Respiratory Rate 16 Blood Pressure 144/88 H Pulse Oximetry 95 Oxygen Delivery Method Nasal Cannula Oxygen Flow Rate 2 Narrative Exam Narrative: Lungs: Essentially clear bilaterally Heart: Regular rate and rhythm Abdomen: Soft, appropriately tender, wounds are all clean dry and intact. Extremities no edema Objective Labs Result Diagrams: 12/28/17 05:10 12/28/17 05:10 Labs: Laboratory Results - last 24 hr 12/27/17 12/28/17 12/28/17 07:55 05:10 05:10 WBC 19.0 H RBC 4.71 Hgb 14.1 Hct 42.3 MCV 89.7 MCH 30.0 MCHC 33.5 RDW 15.1 H Plt Count 158 Neut % (Auto) 65.2 Lymph % (Auto) 28.7 [place] % (Auto) 5.9 Eos % (Auto) 0.0 L Baso % (Auto) 0.2 Neut # (Auto) 59264 H Sodium 136 L Potassium 3.3 L Chloride 99 Carbon Dioxide 28 BUN 8 Creatinine 0.70 Estimated GFR > 60.0 BUN/Creatinine Ratio 11.4 Glucose 120 H Calcium 8.2 L Total Bilirubin 0.6 AST 43 H ALT 56 H Alkaline Phosphatase 63 Total Protein 6.3 Albumin 3.3 L Globulin 3.0 Albumin/Globulin Ratio 1.1 Carcinoembryonic Ag 2.3 Assessment & Plan Post-op (1) Cecum mass: Current Visit: Yes Status: Acute Assessment and plan: Postop day 1 after laparoscopic right hemicolectomy for a cecal mass. The mass included the appendix and at least on initial examination of the specimen appeared to emanate from the appendix. Pathology is still pending. We discussed today that I simply do not know if she has cancer. There are a lot of good things to remember however. Her liver was normal and I did not feel any lumps. I did not appreciate any particularly large lymph nodes while doing her surgery. I feel certain that we did the correct operation and got an adequate lymph node excision. 1. Advance to clear liquid diet 2. Walk at least to the nurse's station and back today. 3. Continue Dilaudid W[employer]W [employer]PERATOR until she is taking p.o. consistently. Postoperative Procedures Operation Date: 12/27/17 07:45 Actual Procedures Side Surgeon p Laparoscopically Assisted Colectomy Right Aura Mueller MD Time Spent With Patient 25 - 35 minutes
--- NOTE | 2017-12-28 08:35 | P.PN_ITS ---
Subjective Date Patient Seen: 12/28/17 Time Patient Seen: 08:30 Interval history: Maria Dolores is in excellent spirits today. She is already out of bed and sitting in a chair. She reports her pain is pretty minimal. She is thirsty and she wants something to drink. She has some questions about what we found yesterday and what it means for her. She very much wants to know if she has cancer. Exam Vital Signs (past 8 hours): - 12/28/17 03:00 Temperature 98.6 F Pulse Rate 72 Respiratory Rate 16 Blood Pressure 144/88 H Pulse Oximetry 95 Oxygen Delivery Method Nasal Cannula Oxygen Flow Rate 2 Narrative Exam Narrative: Lungs: Essentially clear bilaterally Heart: Regular rate and rhythm Abdomen: Soft, appropriately tender, wounds are all clean dry and intact. Extremities no edema Objective Labs Result Diagrams: 12/28/17 05:10 12/28/17 05:10 Labs: Laboratory Results - last 24 hr 12/27/17 12/28/17 12/28/17 07:55 05:10 05:10 WBC 19.0 H RBC 4.71 Hgb 14.1 Hct 42.3 MCV 89.7 MCH 30.0 MCHC 33.5 RDW 15.1 H Plt Count 158 Neut % (Auto) 65.2 Lymph % (Auto) 28.7 [place] % (Auto) 5.9 Eos % (Auto) 0.0 L Baso % (Auto) 0.2 Neut # (Auto) 33012 H Sodium 136 L Potassium 3.3 L Chloride 99 Carbon Dioxide 28 BUN 8 Creatinine 0.70 Estimated GFR > 60.0 BUN/Creatinine Ratio 11.4 Glucose 120 H Calcium 8.2 L Total Bilirubin 0.6 AST 43 H ALT 56 H Alkaline Phosphatase 63 Total Protein 6.3 Albumin 3.3 L Globulin 3.0 Albumin/Globulin Ratio 1.1 Carcinoembryonic Ag 2.3 Assessment & Plan Post-op (1) Cecum mass: Current Visit: Yes Status: Acute Assessment and plan: Postop day 1 after laparoscopic right hemicolectomy for a cecal mass. The mass included the appendix and at least on initial examination of the specimen appeared to emanate from the appendix. Pathology is still pending. We discussed today that I simply do not know if she has cancer. There are a lot of good things to remember however. Her liver was normal and I did not feel any lumps. I did not appreciate any particularly large lymph nodes while doing her surgery. I feel certain that we did the correct operation and got an adequate lymph node excision. 1. Advance to clear liquid diet 2. Walk at least to the nurse's station and back today. 3. 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 consistently. Postoperative Procedures Operation Date: 12/27/17 07:45 Actual Procedures Side Surgeon p Laparoscopically Assisted Colectomy Right Aura Mueller MD Time Spent With Patient 25 - 35 minutes
[2017-12-28] MEDS: GABAPENTIN 300 MG CAPSULE PO ×2 (09:01→20:43)
[2017-12-28] MEDS: LOSARTAN 50 MG TABLET PO (09:02)
[2017-12-28] MEDS: hydroCHLOROthiazide 12.5 MG CAPSULE PO (09:02)
[2017-12-28] MEDS: METOCLOPRAMIDE 10 MG/2 ML INJ 5 MG IV ×2 (14:29→20:43)
--- NOTE | 2017-12-28 15:29 | CM.IDA ---
DCP Assessment Note: Pt is a 72 yo female, resident of [place]. 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 Pt's PCP is Dr Russo; Insurance is Medicare/[employer]. Met w/pt, explained role. Pt lives w/her spouse Cris, pt has an adult son that lives out of state. Pt is indp in all she does, the only things she doesn't do at home is cook and drive. Pt explains she is hopeful she can go home depending on what Dr Mueller says. Pt is a little concerned about her 's scheduled trip to [facility] January 05 for one week, she hopes she can manage on her own while he is gone. Pt may consider hiring someone to assist w/cooking and cleaning. Pt will likely call someone a friend has recommended. This SLEEPING CAR CONDUCTOR also referred pt to [facility] at , pt appreciative. Home is expected, likely w/no barriers, when medically cleared for DC. ANGEL [place] Discharge Planning/Care Management Discharge Assessment Start: 12/28/17 15:28 Freq: Status: Active Protocol: Document 12/28/17 15:28 ABDIRIZAK (Rec: 12/28/17 15:29 ABDIRIZAK [id number]) Discharge Planning Assessment Assigned Buckle Attacher ABDIRIZAK History Provided By Patient Medical Record Has Patient been admitted in last 30 No days? Is this patient on Medicare? Yes Prior Living Arrangements House Household Members spouse Type of transporation used prior to Relies on Others admit Comment Pt does not like to drive at night, spouse does most of the driving. Independent with ADL's Yes Is patient alert and oriented? Yes Caregiver for Another No Referrals Initiated None needed Discharge Plan Home Transportation Arrangement Spouse Review Status In Process Next Review Type Discharge Review
--- NOTE | 2017-12-28 18:09 | PC.NURSE ---
PATIENT UP TO BATHROOM WITH MIN. ASSIST,VERY SLOW STANDING UP FROM BED,STEADY ONCE ON FEET. 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
[2017-12-29] VITALS (8 sets, daily range): BP systolic 138–169; BP diastolic 83–96; PULSE 76–90; RESP 16–18; TEMP 36.7–37.6; O2SAT 92–98
[2017-12-29] MEDS: KETOROLAC 15 MG/ML VIAL IV ×5 (00:10→23:36)
[2017-12-29] MEDS: DEXTROSE 5%-0.45% NS 1,000 ML 125 ML IV ×2 (01:53→09:36)
[2017-12-29] MEDS: METOCLOPRAMIDE 10 MG/2 ML INJ 5 MG IV ×3 (05:36→21:29)
[2017-12-29] MEDS: HYDROMORPHONE PCA 6 MG/30 ML PCA.VIAL IV ×2 (05:40→13:22)
[2017-12-29] MEDS: GABAPENTIN 300 MG CAPSULE PO ×2 (08:26→21:28)
[2017-12-29] MEDS: hydroCHLOROthiazide 12.5 MG CAPSULE PO (08:26)
[2017-12-29] MEDS: LOSARTAN 50 MG TABLET PO (08:26)
[2017-12-29] MEDS: ENOXAPARIN 40 MG/0.4 ML SYRINGE SUBCUT (08:26)
--- NOTE | 2017-12-29 14:15 | PM.PN.1 ---
Subjective Date Patient Seen: 12/29/17 Time Patient Seen: 14:15 Interval history: Sitting at the bedside again today. In remarkably good spirits. Reports that her pain sort of comes and goes but in general it is very manageable. Had a bowel movement and has been passing flatus. Exam Vital Signs (past 8 hours): - 12/29/17 07:55 12/29/17 08:40 12/29/17 11:00 Temperature 99.7 F H 99.7 F H Pulse Rate 76 90 85 Respiratory Rate 17 18 18 Blood Pressure 138/83 H 145/90 H Pulse Oximetry 97 95 92 Oxygen Delivery Method Nasal Cannula Oxygen Flow Rate 1 Narrative Exam Narrative: Abdomen is soft, appropriately tender to palpation, active bowel sounds. No erythema of the operative site. Lungs are clear bilaterally Heart is regular rate and rhythm Extremities are without edema Objective Labs Result Diagrams: 12/28/17 05:10 12/28/17 05:10 Assessment & Plan Plan: Assessment/Plan Narrative: 1. Advanced to a general diet 2. Hep-Lock IV 3. At oral pain medications 4. Tentatively plan for discharge in the morning if she continues to do well.
--- NOTE | 2017-12-29 18:05 | PC.NURSE ---
Pt awake and alert up in recliner for evening meal. DIRECTOR OF AUDIOLOGY and IVF dc'd as per MD order. Pt admits to incisional pain 2/10 and was given scheduled toradol. Informed pt can have oral analgesia if pt needs/desires. Assisted pt back into bed per request as pt's spouse comes to visit. Slow gait. 02 1L nc saturation level 92% @ rest. Breath sounds diminished to posterior boyd. Encouraged I.S. use and pt verbalizes understanding of how device is to be used. Dermabond wound adhesive in place to central abdominal incision. No drainage. Pt is incontinent of urine and assisted with brief change and gown change. BL calf scd's replaced and pillow provided to pt to splint abdomen with explanation of use. Bed alarm set as pt admits to one fall in past 6 months.
[2017-12-29] MEDS: SODIUM CHLORIDE 0.9% FLUSH 10 ML IV (21:29)
[2017-12-30] VITALS (8 sets, daily range): BP systolic 109–164; BP diastolic 69–97; PULSE 58–85; RESP 15–18; TEMP 36.4–37.6; O2SAT 91–97
[2017-12-30] MEDS: KETOROLAC 15 MG/ML VIAL IV ×2 (06:14→11:51)
[2017-12-30] MEDS: METOCLOPRAMIDE 10 MG/2 ML INJ 5 MG IV (06:14)
[2017-12-30] MEDS: SODIUM CHLORIDE 0.9% FLUSH 10 ML IV ×3 (06:14→11:51)
--- NOTE | 2017-12-30 06:21 | PC.NURSE ---
Pt is AxOx3, VSS, Pain is well managed with the scheduled Toradol. No nausea/vomitting. On Room air throughout the night saturating at 91-93%, pt did not want any O2 therapy for possible d/c today. Abdominal incision with dermabond is clean, dry, and intact. No drainage, well approximated. Bed alarm is on. Pt incontinent of urine. No BM overnight.
[2017-12-30] MEDS: hydroCHLOROthiazide 12.5 MG CAPSULE PO (08:57)
[2017-12-30] MEDS: ENOXAPARIN 40 MG/0.4 ML SYRINGE SUBCUT (08:57)
[2017-12-30] MEDS: GABAPENTIN 300 MG CAPSULE PO (08:57)
[2017-12-30] MEDS: LOSARTAN 50 MG TABLET PO (08:57)
[2017-12-30 11:06] LABS: Add Manual Diff / Slide Review NO; Basophils Percent Auto 0.4 % (0-2); Eosinophils Percent Auto 0.5 % (2-4); Hematocrit 43.6 % (36-46); Hemoglobin 14.4 g/dL (12.0-16.0); Lymphocytes Percent Auto 37.5 % (25-40); Mean Corpuscular HGB Conc 33.1 % (30-36); Mean Corpuscular Hemoglobin 29.7 PG (26-34); Mean Corpuscular Volume 89.9 fL (80-100); Monocytes Percent Auto 5.8 % (3-14); Neutrophils Absolute Auto 9100 /uL (3000-5900); Neutrophils Percent Auto 55.8 % (50-75); Platelet Count 179 X10^3/uL (150-400); Red Blood Cell Count 4.85 X10^6/uL (4.0-5.2); Red Cell Distribution Width 14.4 % (11.6-14.8); White Blood Cell Count 16.4 X10^3/uL (4.5-11.0)
[2017-12-30 11:25] LABS: HEMOLYSIS < 15 (0-50)
[2017-12-30 11:26] LABS: BUN Creatinine Ratio 12.9 (6-22); Blood Urea Nitrogen 9 mg/dL (7-17); Calcium 8.5 mg/dL (8.4-10.2); Carbon Dioxide 32 mmol/L (22-32); Chloride 97 mmol/L (98-107); Estimated Glomerular Filt Rate > 60.0 mL/min (>60); Glucose 90 mg/dL (80-110); Sodium 137 mmol/L (137-145)
[2017-12-30 11:37] LABS: Potassium 2.7 mmol/L (3.4-5.1)
[2017-12-30] MEDS: POTASSIUM CHLORIDE IN WATER 20 MEQ/200 ML PIGGYBACK 100 MEQ IV (11:56)
--- NOTE | 2017-12-30 13:32 | PC.NURSE ---
AM SHIFT Critical lab value of 2.7 at 11am. Patient started on K rider in water. Patient c/o burning at IV site. Flushed IV (IV patent and pt tolerated NS well), but continued to c/o with the potassium infusing. Pharmacy stated they had a potassium mixed in NS to switch out the current bag with. Patient AOx3, pleasant, and receptive to care. 1PA with FWW to BR. Complaining to intermittent 4/10 pain in abdomen. Ketoralac scheduled.
[2017-12-30] MEDS: POTASSIUM CHLORIDE 20 MEQ in SODIUM CHLORIDE 0.9% 250 ML 130 ML IV (13:52)
--- NOTE | 2017-12-30 15:29 | P.DS_ITS ---
History of Present Illness Date Patient Seen: 12/30/17 Time Patient Seen: 15:26 Chief complaint: LAPAROSCOPICICALLY ASSISTED COLECTOMY Narrative: Edilson is a boris 72-year-old lady who was admitted to the emergency room with abdominal pain and cecal mass. She was prepped as an outpatient and returned the following day for colonoscopy. At that time, she was noted to have multiple polyps that were removed as well as a large mass in the cecum and the appendix that was not removed. On the day of admission, she underwent a laparoscopic right hemicolectomy. Discharge Providers Date of admission: 12/27/17 07:34 Primary care physician: Sayra Russo MD Consults: 12/27/17 12:16 Consult to Discharge Planning Routine Comment: Consult to Respiratory Therapy Evaluate & Treat Comment: Please provide and IS and use q 1 hours while awak Physician Instructions: Evaluate and treat Discharge provider: Aura Mueller MD Summary Discharge Diagnosis: Cecal mass Hospital Course: The operation was uneventful and Maria Dolores was returned to the acute Care Floor for continued convalescence. She has recovered as expected and is having bowel movements and tolerating a regular diet. Her pain has also been well controlled with oral medication. Repeat labs today revealed her white count is returning toward normal although still mildly elevated and she had a low potassium for which she is receiving oral replacement as well as a K rider. Status at Discharge Cognitive/behavioral status at discharge: Normal Functional status at discharge: independent ambulation Overall status at discharge: patient is progressing back to baseline Time Spent with Patient Greater than 30 minutes Exam Vital Signs (past 8 hours): - 12/30/17 08:00 12/30/17 08:57 12/30/17 09:45 Temperature 98 F Pulse Rate 83 83 80 Respiratory Rate 16 18 Blood Pressure 164/75 H 164/75 H Pulse Oximetry 95 97 12/30/17 11:39 12/30/17 15:17 Temperature 98.4 F 97.8 F Pulse Rate 82 75 Respiratory Rate 15 16 Blood Pressure 161/97 H 164/90 H Pulse Oximetry 95 94 Oxygen Delivery Method Room Air Oxygen Flow Rate 0 Objective Labs Result Diagrams: 12/30/17 10:45 12/30/17 10:45 Labs: Laboratory Results - last 24 hr 12/30/17 12/30/17 10:45 10:45 WBC 16.4 H RBC 4.85 Hgb 14.4 Hct 43.6 MCV 89.9 MCH 29.7 MCHC 33.1 RDW 14.4 Plt Count 179 Neut % (Auto) 55.8 Lymph % (Auto) 37.5 [place] % (Auto) 5.8 Eos % (Auto) 0.5 L Baso % (Auto) 0.4 Neut # (Auto) 9100 H Sodium 137 Potassium 2.7 L* Chloride 97 L Carbon Dioxide 32 BUN 9 Creatinine 0.70 Estimated GFR > 60.0 BUN/Creatinine Ratio 12.9 Glucose 90 Calcium 8.5 Discharge Plan Discharge Plan Patient Disposition: Home, Self-Care Discharge Med Rec/Prescriptions Prescriptions: New oxycodone-acetaminophen [Percocet] 5-325 mg tablet 1 tab PO Q4-6H PRN (Reason: pain) Qty: 20 RF: 0 potassium chloride 20 mEq/15 mL liquid 20 meq PO BID 3 Days Qty: 90 RF: 0 ondansetron [Zofran ODT] 4 mg tablet,disintegrating 4 mg PO Q6-8H PRN (Reason: nausea and vomiting) Qty: 10 RF: 0 Continue latanoprost 0.005 % drops 1 drp ophthalmic (eye) DIRECTED RF: 0 losartan-hydrochlorothiazide 50-12.5 mg tablet 1 tab PO DAILY RF: 0 Calcium 1 tab PO DAILY RF: 0 omega 5-dpf-mjk-fish oil [[place]-3] 350 mg-235 mg- 90 mg-597 mg Capsule, Delayed Release(Dr/Ec) 1 cap PO DAILY RF: 0 aspirin [Aspir-81] 81 mg Tablet,Delayed Release (Dr/Ec) 1 tab PO DAILY RF: 0 multivitamin Tablet 1 tab PO DAILY RF: 0 Follow up/Referrals: Aura Mueller MD [Physician] - 2 Weeks Provider Discharge Instructions Diet: Diet as Tolerated Activity: You may shower as desired. Do not soak in water for at least 2 weeks. Do not lift more than 5 pounds until after follow up visit. Other treatments: Resume Augmentin prescribed in the emergency room at the time of initial evaluation. Complete this prescription and then stop. Wound Care Report to your healthcare provider any signs of infection, such as:: chills, fever, night sweats, increased pain and unusual drainage Visit Report/Discharge Packet Instructions: Colectomy -- Open Surgery, DI for Colectomy, Colectomy -- Laparoscopic Surgery Visit Report Forms: Stroke Signs & Symptoms Discharge Data Primary Care Provider: Sayra Russo Attending Provider: Aura Mueller Admit Date/Time: 12/27/17 07:34 Discharges patient from system. Discharge Date/Time: 12/30/17 17:30
[2017-12-30] MEDS: POTASSIUM CHLORIDE 20 MEQ/15 ML UDC PO (16:56)
[2017-12-30] MEDS: OXYCODONE/ACETAMINOPHEN 5/325 TABLET 1 TAB PO (16:57)
--- NOTE | 2017-12-30 17:10 | PC.NURSE ---
Dr Mueller in room to talk to patient and spouse. DC orders written. All DC paperwork reviewed with Maria Dolores & her spouse, 3 prescriptions explained. Medicated pt with 1 tab Percocet for c/o increased pain. Also given Oral K+ mixed with a little of her smoothie, followed by crackers. Sipping on smoothie. Talked to her about prevention of nausea & eating food w/ pain med & K+. Talked to her about Percocet & constipation. IV K+ complete, IV to RFA removed, no redness, bleeding or swelling observed at site. Small pressure drsg applied. Pt in room getting dressed, denied need for staff assistance, her spouse helping her.
== END 2017-12-30 17:30 | disposition home or self-care (01) | DRG 330 ==
PROVIDERS: Admitting Provider Surgery; PCP Internal Medicine; Visit Provider Surgery
PROC: 0DTE0ZZ Resection of Large Intestine, Open Approach (ICD-10-PCS; principal; 2017-12-27 07:45)
DX: K63.9 Disease of intestine, unspecified (principal); K63.0 Abscess of intestine; C91.10 Chronic lymphocytic leukemia of B-cell type not having achieved remission; D12.0 Benign neoplasm of cecum; Z53.31 Laparoscopic surgical procedure converted to open procedure; R10.31 Right lower quadrant pain; K63.5 Polyp of colon; H40.9 Unspecified glaucoma; F17.200 Nicotine dependence, unspecified, uncomplicated
CPT/HCPCS: 36415; 36591; 44205; 45380; 74177; 80048; 80053; 81001; 82378; 83690; 85025; 85610; 85730; 94760; 94762; 99282; 99406; J1100; J1650; J1885; J2250; J2405; J2704; J2765; J3010; J3480; Q9967

== ENCOUNTER → 2018-02-13 15:04 | Outpatient (CLI) | payer MEDICARE, SELFPAY ==
[2018-01-14 16:00] VITALS: BMI 22.9
[2018-02-13 15:24] LABS: Hemoglobin 14.4 g/dL (12.0-16.0); Mean Corpuscular HGB Conc 33.5 % (30-36); Mean Corpuscular Hemoglobin 29.2 PG (26-34); Mean Corpuscular Volume 87.2 fL (80-100); Platelet Count 398 X10^3/uL (150-400); Red Blood Cell Count 4.94 X10^6/uL (4.0-5.2); Red Cell Distribution Width 14.7 % (11.6-14.8); White Blood Cell Count 13.9 X10^3/uL (4.5-11.0)
[2018-02-13 15:26] LABS: Add Manual Diff / Slide Review YES
[2018-02-13 15:37] LABS: Alanine Aminotransferase 24 IU/L (9-52); Albumin 3.8 g/dL (3.5-5.0); Albumin Globulin Ratio 1.2 (1.0-2.8); Alkaline Phosphatase 85 U/L (38-126); Aspartate Aminotransferase 23 IU/L (14-36); Bilirubin Total 0.4 mg/dL (0.2-1.3); Blood Urea Nitrogen 6 mg/dL (7-17); Calcium 9.6 mg/dL (8.4-10.2); Carbon Dioxide 35 mmol/L (22-32); Chloride 97 mmol/L (98-107); Estimated Glomerular Filt Rate > 60.0 mL/min (>60); Globulin 3.1 g/dL (1.7-4.1); Glucose 107 mg/dL (80-110); HEMOLYSIS < 15 (0-50); Potassium 3.5 mmol/L (3.4-5.1); Sodium 139 mmol/L (137-145); Total Protein 6.9 g/dL (6.3-8.2)
[2018-02-13 15:48] LABS: Neutrophils Absolute Manual 4309 /uL (3000-5900); Total Cells Counted 100
[2018-02-13 15:49] LABS: RBC Morphology Normal Morphology; Smudge Cells 1+
--- NOTE | 2018-02-13 16:42 | PC.NURSE ---
WBC remain @ 13.9. Provider visit on 02/18
== END ==
PROVIDERS: PCP Internal Medicine; Visit Provider Nurse Practitioner Gerontology
DX: D75.1 Secondary polycythemia (principal)
CPT/HCPCS: 36415; 80053; 85025

== ENCOUNTER 2018-02-16 02:07 | Inpatient (IN) | payer MEDICARE, SELFPAY ==
[2018-01-14 16:00] VITALS: BMI 22.9
[2018-02-16] VITALS (10 sets, daily range): BP systolic 101–154; BP diastolic 72–97; PULSE 88–109; RESP 14–18; TEMP 36.1–36.9; O2SAT 96–99; BMI 15.7
--- NOTE | 2018-02-16 03:07 | DI.RAD.S_ITS ---
PROCEDURE: XR ACUTE ABDOMEN SERIES INDICATIONS: Abdominal pain, no BM x3 days TECHNIQUE: One view chest and two views of the abdomen were acquired. COMPARISON: None. FINDINGS: Surgical changes and devices: None. Chest: Lungs are clear. Heart size is normal. No pleural effusions. No pneumoperitoneum. Abdomen: Air distended bowel loops are noted in mid abdomen with a few air-fluid levels. No gross free air is seen. No suspicious calcifications. Visualized solid organ contours appear normal. Bones: No suspicious bony lesions. IMPRESSION: Findings suspicious for distal small bowel obstruction . Please correlate with CT of abdomen and pelvis findings. Dictated by: Amandeep Burgess M.D. on 02/16/2018 at 9:41 Approved by: Amandeep Burgess M.D. on 02/16/2018 at 9:42
--- NOTE | 2018-02-16 03:32 | DI.CT.S_ITS ---
PROCEDURE: CT ABDOMEN PELVIS W CON INDICATIONS: severe abdominal pain TECHNIQUE: After the administration of intravenous contrast, 5 mm thick sections acquired from the diaphragm to the symphysis. 5 mm coronal and sagittal reformats were acquired. For radiation dose reduction, the following was used: automated exposure control, adjustment of mA and/or kV according to patient size. COMPARISON: [facility], CT, CT ABDOMEN PELVIS W CON, 12/24/2017, 14:02. FINDINGS: Image quality: Excellent. ABDOMEN: Lung bases: Lung bases are clear. Heart size is normal. Solid organs: Liver is normal in size and enhancement. Gallbladder is within normal limits. Biliary system is non dilated. Pancreas enhances normally. Spleen is normal in size and enhancement. No adrenal nodules. Kidneys demonstrate normal size and enhancement, without hydronephrosis. Peritoneum and bowel: Small hiatal hernia is seen. Patient is status post previous partial colectomy with post surgical changes seen in left lower quadrant abdomen. Fluid distended small bowel loops are noted throughout the abdomen with a few air-fluid levels. There is wall thickening and edema involving distal small bowel loops just proximal to small bowel distal transverse colon anastomosis. Small amount of intrapelvic free fluid is noted. No gross free air. Small amount of fecal matter is seen in residual distal colon and rectum with sigmoid diverticulosis, no CT evidence of acute diverticulitis. Nodes and vessels: No retroperitoneal or mesenteric adenopathy by size criteria. Aorta and inferior vena cava are normal in size. Miscellaneous: No ventral hernias. PELVIS: Genitourinary: Bladder wall thickness is normal. Miscellaneous: No inguinal hernias or adenopathy. Bones: No suspicious bony lesions. No vertebral body compression fractures. IMPRESSION: 1. Finding is suggestive of a high-grade distal small bowel obstruction with significant inflammatory changes involving long segment of distal small bowel loops proximal to small bowel-transverse colon anastomosis. Small amount of free fluid. No gross free air. No abscess collection. 2. No renal stone or hydronephrosis. No discrepancies. Dictated by: Amandeep Burgess M.D. on 02/16/2018 at 8:58 Approved by: Amandeep Burgess M.D. on 02/16/2018 at 9:03
[2018-02-16] MEDS: SODIUM CHLORIDE 0.9% 1,000 ML 150 ML IV ×2 (04:14→16:26)
[2018-02-16 04:22] LABS: Hematocrit 44.2 % (36-46); Hemoglobin 14.9 g/dL (12.0-16.0); Mean Corpuscular HGB Conc 33.7 % (30-36); Mean Corpuscular Hemoglobin 29.2 PG (26-34); Mean Corpuscular Volume 86.6 fL (80-100); Platelet Count 323 X10^3/uL (150-400); Red Blood Cell Count 5.11 X10^6/uL (4.0-5.2); Red Cell Distribution Width 14.7 % (11.6-14.8)
[2018-02-16 04:23] LABS: Alanine Aminotransferase 24 IU/L (9-52); Albumin 3.9 g/dL (3.5-5.0); Albumin Globulin Ratio 1.3 (1.0-2.8); Alkaline Phosphatase 112 U/L (38-126); Aspartate Aminotransferase 26 IU/L (14-36); Blood Urea Nitrogen 9 mg/dL (7-17); Calcium 9.3 mg/dL (8.4-10.2); Carbon Dioxide 29 mmol/L (22-32); Chloride 99 mmol/L (98-107); Estimated Glomerular Filt Rate > 60.0 mL/min (>60); Globulin 3.1 g/dL (1.7-4.1); Glucose 125 mg/dL (80-110); HEMOLYSIS < 15 (0-50); Lipase < 10 U/L (23-300); Potassium 3.7 mmol/L (3.4-5.1); Sodium 138 mmol/L (137-145)
[2018-02-16 04:28] LABS: White Blood Cell Count 33.3 X10^3/uL (4.5-11.0)
[2018-02-16 04:29] LABS: Add Manual Diff / Slide Review YES
[2018-02-16 05:05] LABS: Neutrophils Absolute Manual 28971 /uL (3000-5900); RBC Morphology Normal Morphology; Total Cells Counted 100
--- NOTE | 2018-02-16 05:48 | ED.ABDPAIN ---
HPI - Abdominal Pain General Chief Complaint: Abdominal Pain Stated Complaint: RIGHT SIDE ABDOMINAL PAIN Time Seen by Provider: 02/16/18 02:12 Source: patient and family Mode of arrival: ambulatory Limitations: no limitations History of Present Illness HPI narrative: 72-year-old female presents with her in the chief complaint of abdominal pain with decreased bowel movements for the past 3 days. She admits to nausea but denies any vomiting. She has no fever or chills. 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 Her pain is worse with motion and improves with rest. Patient takes no blood thinners and has been NPO since about 2:00 a.m. when she had a few crackers and water MD complaint: abdominal pain Related Data Home Medications Medication Instructions Recorded Confirmed aspirin [Aspir-81] 1 tab PO DAILY 11/15/17 12/27/17 multivitamin 1 tab PO DAILY 11/15/17 12/27/17 omega 3-bzi-esn-fish oil [[place]-3] 1 cap PO DAILY 11/15/17 12/27/17 Calcium 1 tab PO DAILY 12/24/17 12/27/17 latanoprost 1 drp OPHTHALMIC (EYE) DIRECTED 12/24/17 12/27/17 losartan-hydrochlorothiazide 1 tab PO DAILY 12/24/17 12/27/17 Previous Rx's Medication Instructions Recorded ondansetron 4 mg disintegrating 4 mg PO Q6-8H PRN #10 tab MDD 6 01/01/18 tablet ondansetron 4 mg disintegrating 4 mg PO Q6H PRN #20 tab MDD 6 01/01/18 tablet tramadol 37.5 mg-acetaminophen 325 1 tab PO Q4H PRN #30 tab MDD 6 01/01/18 mg tablet Allergies Allergy/AdvReac Type Severity Reaction Status Date / Time lisinopril Allergy Severe SWELLING Verified 01/24/18 11:13 LIPS, TONGUE Review of Systems Review of Systems All systems reviewed & are unremarkable except as noted in HPI and below Constitutional Denies chills, Denies fever(s), Denies lethargy and Denies weakness Eyes Denies change in vision, Denies eye discharge, Denies irritation and Denies loss of vision ENT Ears, Nose, Mouth, and Throat: Denies change in voice, Denies neck pain and Denies sore throat Cardiovascular Denies chest pain, Denies irregular heart rhythm, Denies lightheadedness, Denies palpitations, Denies dyspnea, Denies dyspnea on exertion and Denies orthopnea Respiratory Denies cough, Denies dyspnea, Denies dyspnea on exertion and Denies wheezing Gastrointestinal Gastrointestinal: Reports abdominal pain, Denies change in bowel habits, Denies diarrhea, Reports nausea and Denies vomiting Genitourinary Denies hematuria, Denies flank pain, Denies urinary incontinence and Denies urinary urgency Musculoskeletal Denies neck pain Integumentary/Breasts Denies pruritus, Denies erythema, Denies rash and Denies wounds Neurologic Denies confusion, Denies loss of vision and Denies weakness Psychiatric Denies anxiety, Denies confusion, Denies depression, Denies homicidal ideation and Denies suicidal ideation Endocrine Denies palpitations Hematologic/Lymphatic Denies easy bruising Allergic/Immunologic Denies wheezing PFSH Medical History Hypertension (Acute) Mild protein-calorie malnutrition (Acute) Mass of appendix (Resolved) CLL (chronic lymphocytic leukemia) (Chronic) Erythrocytosis (Chronic) Glaucoma (Chronic) H/O: hysterectomy (Resolved) Other bursal cyst, unspecified wrist (Resolved) Tubal ligation status (Resolved) Surgical History History of colonoscopy (Acute) Status post laparoscopic colectomy (Acute) Family History: Reviewed 02/16/18 by Elias Verdin MD Social History household members: spouse Smoking Status: Current every day smoker alcohol intake: current substance use type: does not use Exam Narrative Exam Narrative: Pleasant 72-year-old female resting comfortably Initial Vital Signs Initial Vital Signs: Vital Signs Temperature 98.4 F 02/16/18 02:53 Pulse Rate 109 H 02/16/18 02:53 Respiratory Rate 18 02/16/18 02:53 Blood Pressure 126/80 H 02/16/18 02:53 Pulse Oximetry 99 02/16/18 02:53 Const General: cooperative and well developed Nutritional Appearance: thin Orientation: alert, awake, oriented x3 and not confused HENMT Head: normocephalic and atraumatic Ears: external ears normal and TM's normal bilaterally Nose: external nose normal and No nasal discharge Face and sinus: sinuses nontender, face symmetric, no sinus tenderness and No dry mucous membranes Mouth: oral mucosae normal and moist mucous membranes Teeth and gingiva: dentition normal Throat: tonsils normal and uvula midline Eyes General: appearance normal, both eyes and all related structures Eyelids: eyelids normal Conjunctivae: conjunctivae normal Sclera: sclerae normal Pupils: PERRL EOM: EOM intact bilaterally Neck Neck: normal visual inspection, trachea midline, No lymphadenopathy, No midline deformity and No JVD Lymphatic: No lymphedema Chest Chest: normal inspection of the chest Resp Effort & Inspection: normal respiratory effort, able to speak in complete sentences, no respiratory distress and no use of accessory muscles Auscultation: clear to auscultation bilaterally, no rales, no rhonchi and no wheezes Cardio Rate: regular rate Rhythm: regular rhythm Heart Sounds: no click, no gallops, no murmurs and no rubs Pulses: normal peripheral pulses GI Inspection: non-distended Palpation: soft, no hepatosplenomegaly, No guarding, No pulsatile mass and No tender Auscultation: normal bowel sounds Back/Spine/Pelvis Back: No CVA tenderness Cervical Spine: cervical ROM normal and No pain with cervical ROM Thoracic/Lumbar Spine: thoracic and lumbar spine normal to inspection Skin General: no rashes or lesions noted, No jaundice and No petechiae Neuro General: alert, oriented x3, gait normal and no focal motor deficits Speech: speech normal Extrem General: full ROM, no clubbing, cyanosis or edema, no pedal edema and no calf tenderness Psych Appearance: well kempt Mental Status: mental status grossly normal Attitude: cooperative Thought Content: normal and suicidality Judgment: judgment good Course Decision to Admit Date: 02/16/18 Decision to Admit time: 03:56 Orders Ordered: ED Orders 02/16/18 14:59 Education, smoking cessation ONGOING 02/16/18 15:09 Consult to Dietitian, Adult Routine Consult to Discharge Planning Routine 02/17/18 XR abdomen min 2V Routine 02/17/18 05:00 Basic Metabolic Panel Routine Complete Blood Count AUTO DIFF Routine Procalcitonin Routine Acetaminophen (Tylenol) 650 mg PO Q6HR PRN PRN Reason: As Needed for Fever/Mild Pain Enoxaparin Sodium (Lovenox) 40 mg SUBCUT DAILY DOMINIQUE Cefotetan Disodium/Dextrose (Cefotan) 2 gm in 50 mls @ 100 mls/hr IV Q12H DOMINIQUE Last Admin: 02/16/18 16:26 Dose: 100 mls/hr Sodium Chloride (Normal Saline 0.9%) 1,000 mls @ 150 mls/hr IV CONT DOMINIQUE Last Admin: 02/16/18 16:26 Dose: 150 mls/hr HYDROMORPHONE M[employer] (Dilaudid 6 Mg/30 Ml) 6 mg in 30 mls @ 0 mls/hr IV Q8HR DOMINIQUE Naloxone HCl (Narcan) 0.2 mg IV Q2MIN DOMINIQUE; Protocol Ondansetron HCl (Zofran) 4 mg IV Q6HR PRN PRN Reason: Nausea And Vomiting Pantoprazole Sodium (Protonix) 40 mg IV DAILY DOMINIQUE Discontinued Medications Hydromorphone HCl (Dilaudid) 1 mg IV NOW ONE Stop: 02/16/18 07:26 Last Admin: 02/16/18 07:32 Dose: 1 mg Sodium Chloride (Normal Saline 0.9%) 1,000 mls @ 150 mls/hr IV CONT [facility] Last Infusion: 02/16/18 07:21 Dose: 0 mls/hr Admin: 02/16/18 04:14 Dose: 150 mls/hr Lactated Ringer's (Lactated Ringers) 1,000 mls @ 150 mls/hr IV CONT [facility] Last Admin: 02/16/18 14:50 Dose: 150 mls/hr Infusion: 02/16/18 14:50 Dose: 150 mls/hr Infusion: 02/16/18 09:38 Dose: 150 mls/hr Infusion: 02/16/18 09:06 Dose: 150 mls/hr Infusion: 02/16/18 08:31 Dose: 0 mls/hr Admin: 02/16/18 07:39 Dose: 150 mls/hr Sodium Chloride (Normal Saline 0.9%) 1,000 mls @ 125 mls/hr IV CONT [facility] Last Admin: 02/16/18 10:56 Dose: Morphine Sulfate (Morphine) 3 mg IV NOW ONE Stop: 02/16/18 12:33 Last Admin: 02/16/18 13:02 Dose: 3 mg Ondansetron HCl (Zofran) 4 mg IV Q4HR PRN PRN Reason: Nausea And Vomiting Consultations Consultation #1: call to Dr. Verdin whom is happy to accept this patient and will see and evaluate in the emergency department. He recommends fluid bolus, the addition of lactate, procalcitonin, type and screen, blood cultures Time: 05:57 Vital Signs - 8 hr 02/16/18 15:00 02/16/18 15:20 02/16/18 19:29 Temperature 97.0 F L 98.5 F Pulse Rate 88 99 H Respiratory Rate 16 18 Blood Pressure 117/96 H 154/91 H Pulse Oximetry 99 99 96 MDM - Abdominal Pain Differential Diagnosis Differential diagnosis: Likely abdominal pain, gastroenteritis and small bowel obstruction Medical Records Attestation: I reviewed the patient's medical records. Lab Data Attestation: I reviewed the patient's lab results. Result diagrams: 02/16/18 04:00 02/16/18 04:00 Lab Results 02/16/18 02/16/18 02/16/18 Range/Units 04:00 04:00 04:00 WBC 33.3 H* (4.5-11.0) X10^3/uL RBC 5.11 (4.0-5.2) X10^6/uL Hgb 14.9 (12.0-16.0) g/dL Hct 44.2 (36-46) % MCV 86.6 (80-100) fL MCH 29.2 (26-34) PG MCHC 33.7 (30-36) % RDW 14.7 (11.6-14.8) % Plt Count 323 (150-400) X10^3/uL Neut % (Auto) Not Reportable Lymph % (Auto) Not Reportable [place] % (Auto) Not Reportable Eos % (Auto) Not Reportable Baso % (Auto) Not Reportable Total Counted 100 Seg Neutrophils % 79.0 H (38-70) % Band Neutrophils % 8.0 H (3-7) % Lymphocytes % (Manual) 13.0 L (25-45) % Neutrophils # (Manual) 26409 H (0832-7317) /uL RBC Morphology Normal morphology Sodium 138 (137-145) mmol/L Potassium 3.7 (3.4-5.1) mmol/L Chloride 99 (98-107) mmol/L Carbon Dioxide 29 (22-32) mmol/L BUN 9 (7-17) mg/dL Creatinine 0.60 (0.52-1.04) mg/dL Estimated GFR > 60.0 (>60) mL/min BUN/Creatinine Ratio 15.0 (6-22) Glucose 125 H (80-110) mg/dL Lactate (0.7-2.1) mmol/L Calcium 9.3 (8.4-10.2) mg/dL Total Bilirubin 1.0 (0.2-1.3) mg/dL AST 26 (14-36) IU/L ALT 24 (9-52) IU/L Alkaline Phosphatase 112 (38-126) U/L Total Protein 7.0 (6.3-8.2) g/dL Albumin 3.9 (3.5-5.0) g/dL Globulin 3.1 (1.7-4.1) g/dL Albumin/Globulin Ratio 1.3 (1.0-2.8) Lipase < 10 L (23-300) U/L Procalcitonin 5.88 H (<0.5) ng/mL Blood Type Antibody Screen Antibody Identification 02/16/18 02/16/18 Range/Units 06:11 06:11 WBC (4.5-11.0) X10^3/uL RBC (4.0-5.2) X10^6/uL Hgb (12.0-16.0) g/dL Hct (36-46) % MCV (80-100) fL MCH (26-34) PG MCHC (30-36) % RDW (11.6-14.8) % Plt Count (150-400) X10^3/uL Neut % (Auto) Lymph % (Auto) [place] % (Auto) Eos % (Auto) Baso % (Auto) Total Counted Seg Neutrophils % (38-70) % Band Neutrophils % (3-7) % Lymphocytes % (Manual) (25-45) % Neutrophils # (Manual) (2094-6949) /uL RBC Morphology Sodium (137-145) mmol/L Potassium (3.4-5.1) mmol/L Chloride (98-107) mmol/L Carbon Dioxide (22-32) mmol/L BUN (7-17) mg/dL Creatinine (0.52-1.04) mg/dL Estimated GFR (>60) mL/min BUN/Creatinine Ratio (6-22) Glucose (80-110) mg/dL Lactate 1.0 (0.7-2.1) mmol/L Calcium (8.4-10.2) mg/dL Total Bilirubin (0.2-1.3) mg/dL AST (14-36) IU/L ALT (9-52) IU/L Alkaline Phosphatase (38-126) U/L Total Protein (6.3-8.2) g/dL Albumin (3.5-5.0) g/dL Globulin (1.7-4.1) g/dL Albumin/Globulin Ratio (1.0-2.8) Lipase (23-300) U/L Procalcitonin (<0.5) ng/mL Blood Type O Positive Antibody Screen Antibody Identification Inconclusive Point of care testing: Urine Dip Bedside Urine Glucose Negative Bedside Urine Ketone - Negative Urine Specific [place] 1.010 Bedside Urine Occult Blood - Negative Bedside Urine pH 6.0 Bedside Urine Protein - Negative Bedside Urine Urobilinogen - Negative Bedside Urine Nitrite - Negative Bedside Urine Leukocytes - Negative Esterase Imaging Data CT scan - abdomen: Radiologist's impression: High-grade distal small-bowel obstruction appears to be due to inflammatory change involving a long segment of the distal small bowel proximal to the small-bowel transverse colon anastomosis Discharge Plan Departure Patient Disposition: Admitted As Inpatient Clinical Impression: Partial small bowel obstruction Discharge Date/Time: 02/16/18 09:41 Interventions: ED Discharge Assessment Last Done: 02/16/18 09:35 Admit Date/Time: 02/16/18 06:43 Admit Provider: Elias Verdin
[2018-02-16 06:47] LABS: Procalcitonin 5.88 ng/mL (<0.5)
[2018-02-16] MEDS: HYDROMORPHONE 0.5 MG INJ 1 MG IV (07:32)
[2018-02-16] MEDS: LACTATED RINGERS 1,000 ML 150 ML IV ×2 (07:39→14:50)
--- NOTE | 2018-02-16 08:12 | PC.NURSE ---
pt. resting with eyes closed. VSS on monitor. sat 98%, HR 89 BP 134/87. NAD
--- NOTE | 2018-02-16 10:28 | CM.DANOTE ---
Addendum entered by Maribel Borjas LPN 02/17/18 11:01: A check in this morning shows that the initial information received in morning team report was not correct. More documentation is now available and Dr. Verdin's note and addendum late yesterday afternoon shows that pt is admitted for a SBO with intent for medical management if possible, surgery consideration otherwise. Pt is s/p L hemicolectory December 26 2017. P: check in with pt today. Original Note: Discharge Planning/Care Management DCP: assessment: case received, EMR reviewed and went to room this morning at 0900 to check in with pt. She has not yet arrived to room. Per RN Coordinator Dori she went directly from the ER to PACU. Documentation reveals that pt is a 72 year old female who admitted early this morning from ER to care of Dr. Verdin and is currently in surgery. Payer: Medicare and [employer]. PCP: Dr. Sascha Russo. White board in room is updated with DCPlanner contact info. P: check in tomorrow with pt and follow for any d/c needs that may arise after more specifics are known re this case. ER draft only is available at this time. CM Discharge Assessment Start: 02/16/18 10:26 Freq: Status: Active Protocol: Document 02/16/18 10:27 ITV (Rec: 02/16/18 10:28 ITV [id number]) Discharge Planning Assessment Advance Directives? No History Provided By Medical Record Household Members spouse Transportation Arrangement Spouse Review Status In Process Next Review Type Continued Stay Review
--- NOTE | 2018-02-16 11:48 | PC.NURSE ---
Pt has been brought to the AC floor via stretcher from the ER at approx. 9:45. NG tube in place and set to LIS per order, tele in place per order, cont. pulse oximetry in place per order, LR running at 150mls/hr. per to Right AC. Pt has been oriented to the room and shown how to use the call light. She reports tolerable pain level to left side abdm as 3/10 on the numerical pain scale. Request for pain med orders faxed to Dr. Verdin in surgery at approx. 10:30. She remains NPO in anticipation of surgery sometime today. Her supportive is at the bedside.
[2018-02-16] MEDS: MORPHINE 4 MG/ML INJ 3 MG IV (13:02)
--- NOTE | 2018-02-16 15:17 | PM.HP.1 ---
History of Present Illness Date Patient Seen: 02/16/18 Time Patient Seen: 15:17 Chief complaint: RIGHT SIDE ABDOMINAL PAIN Narrative: 72-year-old female who is status post laparoscopic-assisted right hemicolectomy with ileocolonic anastomosis approximately December 26, 2017 for appendiceal mass and multiple tubulovillous polyps who presented to the emergency department this morning with progressive abdominal distention and nausea over the last 2-3 days. She has also noticed no significant flatus over the last 48 hr or so. Last bowel movement was approximately 3 days ago. No blood or melena in the stool at that time. Her major complaint remains abdominal pain at this point which is described as intermittently crampy across the lower quadrants bilaterally. Pain will become quite severe at times. She notes no exacerbating or relieving factors. She has been unable to tolerate significant oral intake without nausea, but again she has not vomited. Interestingly she is hungry at the moment and is requesting a diet. Denies subjective fever or chills. No dysuria or hematuria. Patient History Medical History Hypertension (Acute) Mild protein-calorie malnutrition (Acute) Mass of appendix (Resolved) CLL (chronic lymphocytic leukemia) (Chronic) Erythrocytosis (Chronic) Glaucoma (Chronic) H/O: hysterectomy (Resolved) Other bursal cyst, unspecified wrist (Resolved) Tubal ligation status (Resolved) Surgical History History of colonoscopy (Acute) Status post laparoscopic colectomy (Acute) Family & Social History Family History: Reviewed 02/16/18 by Elias Verdin MD Social History: household members spouse Prior Living Arrangements House Safety & Behavioral: Feels Safe in Current Yes Environment Been Physically Hurt or No Threatened By a Person Suicidal Ideation Description None Suicide Plan Description No Plan Tobacco & Substance use: Tobacco type cigarettes Smoking Status Current every day smoker alcohol intake current alcohol intake frequency 0-2 drinks per day Substance Use Type does not use Meds Home Medications Medication Instructions Recorded Confirmed Type aspirin [Aspir-81] 1 tab PO DAILY 11/15/17 12/27/17 History multivitamin 1 tab PO DAILY 11/15/17 12/27/17 History omega 1-wdd-xyu-fish oil [[place]-3] 1 cap PO DAILY 11/15/17 12/27/17 History Calcium 1 tab PO DAILY 12/24/17 12/27/17 History latanoprost 1 drp OPHTHALMIC (EYE) DIRECTED 12/24/17 12/27/17 History losartan-hydrochlorothiazide 1 tab PO DAILY 12/24/17 12/27/17 History ondansetron 4 mg disintegrating 4 mg PO Q6-8H PRN #10 tab MDD 6 01/01/18 Rx tablet ondansetron 4 mg disintegrating 4 mg PO Q6H PRN #20 tab MDD 6 01/01/18 Rx tablet tramadol 37.5 mg-acetaminophen 325 1 tab PO Q4H PRN #30 tab MDD 6 01/01/18 Rx mg tablet Allergies Allergy/AdvReac Type Severity Reaction Status Date / Time lisinopril Allergy Severe SWELLING Verified 01/24/18 11:13 LIPS, TONGUE Review of Systems Review of Systems All systems reviewed & are unremarkable except as noted in HPI and below Exam Vital Signs (past 8 hours): - 02/16/18 08:13 02/16/18 09:35 02/16/18 09:57 Temperature 98.4 F Pulse Rate 98 H 97 H 92 H Respiratory Rate 14 17 16 Blood Pressure 116/97 H 129/82 H Blood Pressure [Left Arm] 134/87 H Pulse Oximetry 96 98 Oxygen Delivery Method Room Air Narrative Exam Narrative: Thin female lying in bed in no acute distress but she does appear acutely uncomfortable. is at the bedside. Patient is alert oriented x3 Sclera nonicteric Nasogastric tube is in place draining some mild bilious fluid. Auscultation of the epigastrium after flushing the blue port with air demonstrates good position of the tube. Chest clear to auscultation bilaterally. Regular rate and rhythm Abdomen shows bowel sounds throughout which are mildly hyperactive. Well-healed surgical scars of the abdomen. No hernias. Abdomen is slightly distended and tympanitic. She is moderately tender to palpation in the bilateral lower quadrants but does not have involuntary guarding or rebound. She is essentially nontender in the epigastrium. No hepatomegaly. Extremities show no clubbing, cyanosis, or edema Objective Labs Result Diagrams: 02/16/18 04:00 02/16/18 04:00 Labs: Laboratory Results - last 24 hr 02/16/18 02/16/18 02/16/18 04:00 04:00 04:00 WBC 33.3 H* RBC 5.11 Hgb 14.9 Hct 44.2 MCV 86.6 MCH 29.2 MCHC 33.7 RDW 14.7 Plt Count 323 Neut % (Auto) Not Reportable Lymph % (Auto) Not Reportable [place] % (Auto) Not Reportable Eos % (Auto) Not Reportable Baso % (Auto) Not Reportable Total Counted 100 Seg Neutrophils % 79.0 H Band Neutrophils % 8.0 H Lymphocytes % (Manual) 13.0 L Neutrophils # (Manual) 84764 H RBC Morphology Normal morphology Sodium 138 Potassium 3.7 Chloride 99 Carbon Dioxide 29 BUN 9 Creatinine 0.60 Estimated GFR > 60.0 BUN/Creatinine Ratio 15.0 Glucose 125 H Lactate Calcium 9.3 Total Bilirubin 1.0 AST 26 ALT 24 Alkaline Phosphatase 112 Total Protein 7.0 Albumin 3.9 Globulin 3.1 Albumin/Globulin Ratio 1.3 Lipase < 10 L Procalcitonin 5.88 H Blood Type Antibody Screen Antibody Identification 02/16/18 02/16/18 06:11 06:11 WBC RBC Hgb Hct MCV MCH MCHC RDW Plt Count Neut % (Auto) Lymph % (Auto) [place] % (Auto) Eos % (Auto) Baso % (Auto) Total Counted Seg Neutrophils % Band Neutrophils % Lymphocytes % (Manual) Neutrophils # (Manual) RBC Morphology Sodium Potassium Chloride Carbon Dioxide BUN Creatinine Estimated GFR BUN/Creatinine Ratio Glucose Lactate 1.0 Calcium Total Bilirubin AST ALT Alkaline Phosphatase Total Protein Albumin Globulin Albumin/Globulin Ratio Lipase Procalcitonin Blood Type O Positive Antibody Screen Antibody Identification Inconclusive I have personally reviewed her abdominal x-rays as well as CT scan of the abdomen and pelvis done in the emergency department early this morning. Findings are consistent with multiple dilated loops of small bowel and air-fluid levels indicating distal small-bowel obstruction. Colon has gas and stool throughout on CT but relatively gasless on plain x-rays. Lung boyd are clear. Small amount of free fluid in the abdomen along with mesenteric stranding consistent with inflammation which may be postoperative. Assessment & Plan Plan: Assessment/Plan Narrative: 72-year-old female approximately 7 weeks status post laparoscopic-assisted right hemicolectomy with ileocolonic anastomosis who has had an uneventful postoperative course until now. She returns today with an obvious small bowel obstruction. However, she has no evidence of mesenteric ischemia by examination or lactate level. Nevertheless I am quite concerned about her procalcitonin level and significant leukocytosis. Her recent white blood cell count was relatively normal despite her history of CLL. She is due to follow-up with her medical oncologist/retail pos specialist in the next 1-2 weeks, but she has not seen those consultants us for many months now. At this time she has no indication for urgent operation. We will attempt to manage her non operatively with nasogastric tube decompression, IV fluid resuscitation, bowel rest, and follow-up abdominal x-rays. She may require small-bowel follow-through if she does not significantly resolve but otherwise remained stable. The leukocytosis and procalcitonin level could potentially be consistent with infectious process so I have started intravenous antibiotics in the form of cefotetan. Pain control will be in the form of Dilaudid RECEIVING MANAGER. Repeat her laboratory studies tomorrow. Continue to follow her examination. I explained that her situation could deteriorated which point she would require emergent laparotomy which obviously carries significant risk given her recent operation and mild protein calorie malnutrition. All the above discussed with the patient and her in detail. All questions were answered to the patient's satisfaction, and she voiced understanding. Orders were written. Quality VTE Deep Vein Thrombosis/Pulmonary Embolism Present on Admission: No
--- NOTE | 2018-02-16 15:28 | P.HP_ITS ---
History of Present Illness Date Patient Seen: 02/16/18 Time Patient Seen: 15:17 Chief complaint: RIGHT SIDE ABDOMINAL PAIN Narrative: 72-year-old female who is status post laparoscopic-assisted right hemicolectomy with ileocolonic anastomosis approximately December 26, 2017 for appendiceal mass and multiple tubulovillous polyps who presented to the emergency department this morning with progressive abdominal distention and nausea over the last 2-3 days. She has also noticed no significant flatus over the last 48 hr or so. Last bowel movement was approximately 3 days ago. No blood or melena in the stool at that time. Her major complaint remains abdominal pain at this point which is described as intermittently crampy across the lower quadrants bilaterally. Pain will become quite severe at times. She notes no exacerbating or relieving factors. She has been unable to tolerate significant oral intake without nausea, but again she has not vomited. Interestingly she is hungry at the moment and is requesting a diet. Denies subjective fever or chills. No dysuria or hematuria. Patient History Medical History Hypertension (Acute) Mild protein-calorie malnutrition (Acute) Mass of appendix (Resolved) CLL (chronic lymphocytic leukemia) (Chronic) Erythrocytosis (Chronic) Glaucoma (Chronic) H/O: hysterectomy (Resolved) Other bursal cyst, unspecified wrist (Resolved) Tubal ligation status (Resolved) Surgical History History of colonoscopy (Acute) Status post laparoscopic colectomy (Acute) Family & Social History Family History: Reviewed 02/16/18 by Elias Verdin MD Social History: household members spouse Prior Living Arrangements House Safety & Behavioral: Feels Safe in Current Yes Environment Been Physically Hurt or No Threatened By a Person Suicidal Ideation Description None Suicide Plan Description No Plan Tobacco & Substance use: Tobacco type cigarettes Smoking Status Current every day smoker alcohol intake current alcohol intake frequency 0-2 drinks per day Substance Use Type does not use Meds Home Medications Medication Instructions Recorded Confirmed Type aspirin [Aspir-81] 1 tab PO DAILY 11/15/17 12/27/17 History multivitamin 1 tab PO DAILY 11/15/17 12/27/17 History omega [id number]-fish oil [[place]-3] 1 cap PO DAILY 11/15/17 12/27/17 History Calcium 1 tab PO DAILY 12/24/17 12/27/17 History latanoprost 1 drp OPHTHALMIC (EYE) DIRECTED 12/24/17 12/27/17 History losartan-hydrochlorothiazide 1 tab PO DAILY 12/24/17 12/27/17 History ondansetron 4 mg disintegrating 4 mg PO Q6-8H PRN #10 tab MDD 6 01/01/18 Rx tablet ondansetron 4 mg disintegrating 4 mg PO Q6H PRN #20 tab MDD 6 01/01/18 Rx tablet tramadol 37.5 mg-acetaminophen 325 1 tab PO Q4H PRN #30 tab MDD 6 01/01/18 Rx mg tablet Allergies Allergy/AdvReac Type Severity Reaction Status Date / Time lisinopril Allergy Severe SWELLING Verified 01/24/18 11:13 LIPS, TONGUE Review of Systems Review of Systems All systems reviewed & are unremarkable except as noted in HPI and below Exam Vital Signs (past 8 hours): - 02/16/18 08:13 02/16/18 09:35 02/16/18 09:57 Temperature 98.4 F Pulse Rate 98 H 97 H 92 H Respiratory Rate 14 17 16 Blood Pressure 116/97 H 129/82 H Blood Pressure [Left Arm] 134/87 H Pulse Oximetry 96 98 Oxygen Delivery Method Room Air Narrative Exam Narrative: Thin female lying in bed in no acute distress but she does appear acutely uncomfortable. is at the bedside. Patient is alert oriented x3 Sclera nonicteric Nasogastric tube is in place draining some mild bilious fluid. Auscultation of the epigastrium after flushing the blue port with air demonstrates good position of the tube. Chest clear to auscultation bilaterally. Regular rate and rhythm Abdomen shows bowel sounds throughout which are mildly hyperactive. Well- healed surgical scars of the abdomen. No hernias. Abdomen is slightly distended and tympanitic. She is moderately tender to palpation in the bilateral lower quadrants but does not have involuntary guarding or rebound. She is essentially nontender in the epigastrium. No hepatomegaly. Extremities show no clubbing, cyanosis, or edema Objective Labs Result Diagrams: 02/16/18 04:00 02/16/18 04:00 Labs: Laboratory Results - last 24 hr 02/16/18 02/16/18 02/16/18 04:00 04:00 04:00 WBC 33.3 H* RBC 5.11 Hgb 14.9 Hct 44.2 MCV 86.6 MCH 29.2 MCHC 33.7 RDW 14.7 Plt Count 323 Neut % (Auto) Not Reportable Lymph % (Auto) Not Reportable [place] % (Auto) Not Reportable Eos % (Auto) Not Reportable Baso % (Auto) Not Reportable Total Counted 100 Seg Neutrophils % 79.0 H Band Neutrophils % 8.0 H Lymphocytes % (Manual) 13.0 L Neutrophils # (Manual) 47028 H RBC Morphology Normal morphology Sodium 138 Potassium 3.7 Chloride 99 Carbon Dioxide 29 BUN 9 Creatinine 0.60 Estimated GFR > 60.0 BUN/Creatinine Ratio 15.0 Glucose 125 H Lactate Calcium 9.3 Total Bilirubin 1.0 AST 26 ALT 24 Alkaline Phosphatase 112 Total Protein 7.0 Albumin 3.9 Globulin 3.1 Albumin/Globulin Ratio 1.3 Lipase < 10 L Procalcitonin 5.88 H Blood Type Antibody Screen Antibody Identification 02/16/18 02/16/18 06:11 06:11 WBC RBC Hgb Hct MCV MCH MCHC RDW Plt Count Neut % (Auto) Lymph % (Auto) [place] % (Auto) Eos % (Auto) Baso % (Auto) Total Counted Seg Neutrophils % Band Neutrophils % Lymphocytes % (Manual) Neutrophils # (Manual) RBC Morphology Sodium Potassium Chloride Carbon Dioxide BUN Creatinine Estimated GFR BUN/Creatinine Ratio Glucose Lactate 1.0 Calcium Total Bilirubin AST ALT Alkaline Phosphatase Total Protein Albumin Globulin Albumin/Globulin Ratio Lipase Procalcitonin Blood Type O Positive Antibody Screen Antibody Identification Inconclusive I have personally reviewed her abdominal x-rays as well as CT scan of the abdomen and pelvis done in the emergency department early this morning. Findings are consistent with multiple dilated loops of small bowel and air- fluid levels indicating distal small-bowel obstruction. Colon has gas and stool throughout on CT but relatively gasless on plain x-rays. Lung boyd are clear. Small amount of free fluid in the abdomen along with mesenteric stranding consistent with inflammation which may be postoperative. Assessment & Plan Plan: Assessment/Plan Narrative: 72-year-old female approximately 7 weeks status post laparoscopic-assisted right hemicolectomy with ileocolonic anastomosis who has had an uneventful postoperative course until now. She returns today with an obvious small bowel obstruction. However, she has no evidence of mesenteric ischemia by examination or lactate level. Nevertheless I am quite concerned about her procalcitonin level and significant leukocytosis. Her recent white blood cell count was relatively normal despite her history of CLL. She is due to follow-up with her medical oncologist/stamping operator in the next 1-2 weeks, but she has not seen those consultants us for many months now. At this time she has no indication for urgent operation. We will attempt to manage her non operatively with nasogastric tube decompression, IV fluid resuscitation, bowel rest, and follow- up abdominal x-rays. She may require small-bowel follow-through if she does not significantly resolve but otherwise remained stable. The leukocytosis and procalcitonin level could potentially be consistent with infectious process so I have started intravenous antibiotics in the form of cefotetan. Pain control will be in the form of Dilaudid EVENT SALES REPRESENTATIVE. Repeat her laboratory studies tomorrow. Continue to follow her examination. I explained that her situation could deteriorated which point she would require emergent laparotomy which obviously carries significant risk given her recent operation and mild protein calorie malnutrition. All the above discussed with the patient and her in detail. All questions were answered to the patient's satisfaction, and she voiced understanding. Orders were written. Quality VTE Deep Vein Thrombosis/Pulmonary Embolism Present on Admission: No
[2018-02-16] MEDS: CEFOTETAN 2 GM/50 ML PIGGYBACK IV (16:26)
[2018-02-16] MEDS: HYDROMORPHONE PCA 6 MG/30 ML PCA.VIAL IV (22:15)
[2018-02-17] VITALS (10 sets, daily range): BP systolic 125–158; BP diastolic 74–103; PULSE 84–102; RESP 14–18; TEMP 36.6–37.1; O2SAT 93–98; BMI 21.3
--- NOTE | 2018-02-17 | DI.RAD.S_ITS ---
PROCEDURE: XR ABDOMEN MIN 2V INDICATIONS: small bowel obstruction TECHNIQUE: 2 views of the abdomen were acquired. COMPARISON: [facility], CT, CT ABDOMEN PELVIS W CON, 02/16/2018, 4:37. FINDINGS: Surgical changes and devices: Esophagogastric tube tip extends into the gastric lumen and it's side port is at the EG junction. Bowel: No pneumoperitoneum. The bowel gas pattern is mildly abnormal with small bowel gas prominence across the mid abdomen.. Soft tissues: No masses; visualized solid organ contours appear normal in size. No suspicious abdominal calcifications. Bones: No suspicious bony abnormalities. IMPRESSION: Persistent small bowel gas prominence across the midabdomen with reference to the CT scanning from 02/16/18. This pattern has slightly improved. The esophagogastric tube side port is at the EG junction and preferably would be advanced approximately 10 cm. Dictated by: Luis Alfredo Helm M.D. on 02/17/2018 at 9:09 Approved by: Luis Alfredo Helm M.D. on 02/17/2018 at 9:11
[2018-02-17] MEDS: CEFOTETAN 2 GM/50 ML PIGGYBACK IV ×2 (03:37→14:49)
[2018-02-17 05:36] LABS: Add Manual Diff / Slide Review NO; Basophils Percent Auto 0.1 % (0-2); Eosinophils Percent Auto 0.2 % (2-4); Hematocrit 39.3 % (36-46); Hemoglobin 13.1 g/dL (12.0-16.0); Mean Corpuscular HGB Conc 33.3 % (30-36); Mean Corpuscular Volume 87.1 fL (80-100); Monocytes Percent Auto 5.6 % (3-14); Neutrophils Absolute Auto 8200 /uL (3000-5900); Neutrophils Percent Auto 58.1 % (50-75); Platelet Count 260 X10^3/uL (150-400); Red Blood Cell Count 4.51 X10^6/uL (4.0-5.2); White Blood Cell Count 14.1 X10^3/uL (4.5-11.0)
[2018-02-17 05:42] LABS: Blood Urea Nitrogen 11 mg/dL (7-17); Calcium 8.5 mg/dL (8.4-10.2); Carbon Dioxide 26 mmol/L (22-32); Chloride 103 mmol/L (98-107); Estimated Glomerular Filt Rate > 60.0 mL/min (>60); Glucose 101 mg/dL (80-110); HEMOLYSIS < 15 (0-50); Potassium 3.9 mmol/L (3.4-5.1); Sodium 139 mmol/L (137-145)
[2018-02-17 06:18] LABS: Procalcitonin 6.54 ng/mL (<0.5)
[2018-02-17] MEDS: SODIUM CHLORIDE 0.9% 1,000 ML 150 ML IV ×2 (06:32→17:49)
--- NOTE | 2018-02-17 11:25 | CM.DPC ---
Discharge Planning/Care Management DCP: continued: met as planned with pt and her spouse after discussion with MATTHEW Morfin, caring for pt today. Introduduced self and role. Pt is found lying in bed, looking fairly comfortable, no ng in place. Pt and MATTHEW Morfin confirm that the tube somehow came out during routine care. Dr. Verdin is on his way to see pt now and will determine if it needs to be replace. P: pt and her are hopeful that the SBO will resolve with the medical intervention and, if so, plan is for home and clinic followup. If surgery is needed then other options may be needed. DCP team will be following. CM Discharge Assessment Start: 02/16/18 10:26 Freq: Status: Active Protocol: Document 02/16/18 10:27 ITV (Rec: 02/16/18 10:28 [email or web address] [id number]) Discharge Planning Assessment Advance Directives? No History Provided By Medical Record Household Members spouse Transportation Arrangement Spouse Review Status In Process Next Review Type Continued Stay Review Document 02/17/18 11:22 ITV (Rec: 02/17/18 11:25 ITV [email or web address]) Discharge Planning Assessment Advance Directives? No History Provided By Patient Family Member Medical Record Has Patient been admitted in last 30 No days? Comment did have hemicolectomy December 262017 and went home December 28. returns now with SBO. Prior Living Arrangements House Household Members spouse Type of transporation used prior to Drives own vehicle admit Comment relies on spouse for night driving Independent with ADL's Yes Is patient alert and oriented? Yes Discharge Plan Home Whiteboard Updated in Patient Room with Yes name and ext. # of Guide Setter Review Status In Process Next Review Type Continued Stay Review
[2018-02-17] MEDS: ENOXAPARIN 40 MG/0.4 ML SYRINGE SUBCUT (12:57)
[2018-02-17] MEDS: PANTOPRAZOLE 40 MG VIAL IV (12:57)
[2018-02-17] MEDS: HYDROMORPHONE PCA 6 MG/30 ML PCA.VIAL IV ×2 (14:50→22:44)
--- NOTE | 2018-02-17 15:12 | PM.PN.1 ---
Subjective Date Patient Seen: 02/17/18 Time Patient Seen: 15:13 Interval history: Hospital day 1 after admission for acute small-bowel obstruction that appears to be caused by an inflamed segment of distal small bowel. This is proximal to the ileocolic anastomosis of 7 weeks ago. Maria Dolores reports she feels dramatically better since her admission. She says she now only has a little soreness in the right side of her abdomen but no sharp pains. Her NG tube was accidentally dislodged earlier today and has remained out. She denies any nausea. She reports that she has passed a little bit of flatus and had a small bowel movement earlier today. She is wanting to know if it is too early to go home. Exam Vital Signs (past 8 hours): - 02/17/18 08:01 02/17/18 10:00 02/17/18 13:03 Temperature 98.4 F 98.4 F Pulse Rate 94 H 102 H Respiratory Rate 18 14 Blood Pressure 152/103 H 142/83 H Pulse Oximetry 95 98 94 Oxygen Delivery Method Room Air Oxygen Flow Rate 0 Narrative Exam Narrative: Lungs: Essentially clear bilaterally. No rales or crackles. No wheezing Heart: Regular rate and rhythm. Abdomen: Soft, few bowel sounds. Minimal tenderness to palpation in the right lower quadrant. No rebound or guarding. No heel tap. No Rovsing sign. Incision is healing well and without palpable defect. Extremities: Warm and well perfused. No notable edema Objective Labs Result Diagrams: 02/17/18 04:53 02/17/18 04:53 Labs: Laboratory Results - last 24 hr 02/17/18 02/17/18 02/17/18 04:53 04:53 04:53 WBC 14.1 H D RBC 4.51 Hgb 13.1 Hct 39.3 MCV 87.1 MCH 29.0 MCHC 33.3 RDW 15.0 H Plt Count 260 Neut % (Auto) 58.1 Lymph % (Auto) 36.0 [place] % (Auto) 5.6 Eos % (Auto) 0.2 L Baso % (Auto) 0.1 Neut # (Auto) 8200 H Sodium 139 Potassium 3.9 Chloride 103 Carbon Dioxide 26 BUN 11 Creatinine 0.50 L Estimated GFR > 60.0 BUN/Creatinine Ratio 22.0 Glucose 101 Calcium 8.5 Procalcitonin 6.54 H Assessment & Plan Plan: Assessment/Plan Narrative: 72-year-old lady 7 weeks status post right hemicolectomy for a cecal mass that was determined to be an infectious process. She now appears to have an infectious process involving her distal ileum. She has improved significantly on cefotetan and her exam is reassuring. What is not reassuring, however, is her elevated procalcitonin. Her NG tube has been dislodged and we will leave that out for now. If she should experience any level of nausea, it should be replaced immediately. This order has been discussed with the nursing staff. Her white count is normalizing and I would expect procalcitonin to follow in the next day or 2. As long as she continues to improve clinically, we will stay this course. Quality VTE Deep Vein Thrombosis/Pulmonary Embolism Present on Admission: No
--- NOTE | 2018-02-17 23:02 | PC.NURSE ---
alert and oriented x4, vss on RA, denied any GI symtoms, continued NPO, states to be passing some flatus. used 0.6 of recycling program manager with stated pain relief
[2018-02-18] VITALS (8 sets, daily range): BP systolic 123–150; BP diastolic 67–80; PULSE 63–84; RESP 16–19; TEMP 36.2–36.6; O2SAT 92–98
[2018-02-18] MEDS: SODIUM CHLORIDE 0.9% 1,000 ML 150 ML IV ×4 (01:16→22:47)
[2018-02-18] MEDS: CEFOTETAN 2 GM/50 ML PIGGYBACK IV ×2 (04:20→14:40)
[2018-02-18] MEDS: HYDROMORPHONE PCA 6 MG/30 ML PCA.VIAL IV ×3 (06:29→21:18)
[2018-02-18] MEDS: PANTOPRAZOLE 40 MG VIAL IV (08:43)
[2018-02-18] MEDS: ENOXAPARIN 40 MG/0.4 ML SYRINGE SUBCUT (08:43)
--- NOTE | 2018-02-18 15:40 | CM.DPC ---
DCP Cont: Met with patient, introduced self and role, resting in bed. Asked patient if she needed any resources at home for when it is time for her to be discharged. Stated that she feels comfortable going home, and does not have any concerns. Placed name on her board if she has any additional questions. Has supportive spouse. P: DCP continue to assess. Patient's goal is to return home. Evelia Chen RN/Fur Weigher
--- NOTE | 2018-02-18 16:44 | PM.PN.1 ---
Subjective Date Patient Seen: 02/18/18 Time Patient Seen: 09:44 Interval history: Mrs. Shoemaker reports she continues to feel better each day. She says her pain is extremely minimal today. She also reports that she passed some flatus overnight. She denies any nausea and has not had any nausea since her NG tube was removed. She asks again when she could eat or go home. Exam Vital Signs (past 8 hours): - 02/18/18 09:00 02/18/18 14:12 02/18/18 16:41 Temperature 97.8 F 98 F 97.8 F Pulse Rate 81 80 84 Respiratory Rate 16 16 19 Blood Pressure 123/75 H 130/70 H 147/80 H Pulse Oximetry 98 97 93 Oxygen Delivery Method Room Air Oxygen Flow Rate 0 Narrative Exam Narrative: Abdomen is soft, no tenderness elicited on palpation. Hypoactive bowel sounds. Objective Labs Result Diagrams: 02/17/18 04:53 02/17/18 04:53 Assessment & Plan Plan: Assessment/Plan Narrative: 1. Bowel obstruction- Improvement continues. We will continue cefotetan and I have ordered stool studies when the patient is able to produce a sample. If she tolerate ice chips today, we may consider advancing to clear liquids tomorrow. 2. Mild protein calorie malnutrition. BMI is 21.3. Though she is thin, she desires to eat. She reports that her has not been cooking the kind of food she likes to eat and she herself isn't hungry enough to cook. She reports that she would like mac and cheese. I assured her that as soon as her bowel function returns, she can have all the mac and cheese she would like. As she seems to be improving rather quickly, I do not believe TPN would be of any benefit. If this situation changes, I will reconsider. Quality VTE Deep Vein Thrombosis/Pulmonary Embolism Present on Admission: No
--- NOTE | 2018-02-18 22:58 | PC.NURSE ---
alert and oriented x4, slightly HTN and 93% on RA. continues to deny any GI symptoms, complains of some abdominal tenderness, voiding to bathroom, independent in room. Tolerating ice chips. STUDIO MUSICIAN for pain, utilizing 0.6 this shift. tele reading NSR.
[2018-02-19] VITALS (10 sets, daily range): BP systolic 136–152; BP diastolic 78–91; PULSE 71–86; RESP 15–16; TEMP 35.7–37.1; O2SAT 90–98
[2018-02-19] MEDS: CEFOTETAN 2 GM/50 ML PIGGYBACK IV ×2 (03:05→15:27)
[2018-02-19 05:30] LABS: Add Manual Diff / Slide Review NO; Basophils Percent Auto 0.3 % (0-2); Eosinophils Percent Auto 1.3 % (2-4); Hematocrit 35.8 % (36-46); Lymphocytes Percent Auto 43.6 % (25-40); Mean Corpuscular HGB Conc 33.5 % (30-36); Mean Corpuscular Hemoglobin 29.1 PG (26-34); Mean Corpuscular Volume 86.8 fL (80-100); Neutrophils Absolute Auto 4600 /uL (3000-5900); Neutrophils Percent Auto 45.8 % (50-75); Platelet Count 206 X10^3/uL (150-400); Red Blood Cell Count 4.12 X10^6/uL (4.0-5.2); Red Cell Distribution Width 14.7 % (11.6-14.8); White Blood Cell Count 10.1 X10^3/uL (4.5-11.0)
[2018-02-19 05:44] LABS: Blood Urea Nitrogen 3 mg/dL (7-17); Calcium 7.8 mg/dL (8.4-10.2); Carbon Dioxide 22 mmol/L (22-32); Chloride 103 mmol/L (98-107); Estimated Glomerular Filt Rate > 60.0 mL/min (>60); Glucose 69 mg/dL (80-110); HEMOLYSIS < 15 (0-50); Potassium 2.8 mmol/L (3.4-5.1); Sodium 137 mmol/L (137-145)
--- NOTE | 2018-02-19 05:53 | PC.NURSE ---
Drying Oven Tender Note: Up to bathroom independently; steady on her feet. Had 2 medium soft stools. Stool specimen sent to lab for O&P. Assisted with reno-care.
[2018-02-19] MEDS: HYDROMORPHONE PCA 6 MG/30 ML PCA.VIAL IV ×3 (07:01→21:17)
[2018-02-19] MEDS: ENOXAPARIN 40 MG/0.4 ML SYRINGE SUBCUT (09:37)
[2018-02-19] MEDS: PANTOPRAZOLE 40 MG VIAL IV (09:37)
[2018-02-19] MEDS: POTASSIUM CHLORIDE 60 MEQ in SODIUM CHLORIDE 0.9% 500 ML 40 ML IV (10:21)
[2018-02-19] MEDS: SODIUM CHLORIDE 0.9% 1,000 ML 150 ML IV ×2 (13:08→21:13)
--- NOTE | 2018-02-19 16:08 | P.PN_ITS ---
Subjective Date Patient Seen: 02/19/18 Time Patient Seen: 16:07 Interval history: Maria Dolores reports feeling tired today. She denies any abdominal pain. She reports that she has had multiple small bowel movements today and was able to eat most of her liquid lunch. Does not feel particularly hungry but reports she never really feels hungry Exam Vital Signs (past 8 hours): - 02/19/18 12:04 Temperature 97.9 F Pulse Rate 78 Respiratory Rate 15 Blood Pressure 152/91 H Pulse Oximetry 95 Oxygen Delivery Method Room Air Oxygen Flow Rate 0 Narrative Exam Narrative: Abdomen is soft, no tenderness to palpation elicited. Active bowel sounds. Objective Labs Result Diagrams: 02/19/18 05:06 02/19/18 05:06 Labs: Laboratory Results - last 24 hr 02/16/18 02/19/18 02/19/18 04:00 05:06 05:06 WBC 10.1 RBC 4.12 Hgb 12.0 Hct 35.8 L MCV 86.8 MCH 29.1 MCHC 33.5 RDW 14.7 Plt Count 206 Neut % (Auto) 45.8 L Lymph % (Auto) 43.6 H [place] % (Auto) 9.0 Eos % (Auto) 1.3 L Baso % (Auto) 0.3 Neut # (Auto) 4600 Smear Path Review Sodium 137 Potassium 2.8 L Chloride 103 Carbon Dioxide 22 BUN 3 L Creatinine 0.50 L Estimated GFR > 60.0 BUN/Creatinine Ratio 6.0 Glucose 69 L Calcium 7.8 L Procalcitonin 02/19/18 05:06 WBC RBC Hgb Hct MCV MCH MCHC RDW Plt Count Neut % (Auto) Lymph % (Auto) [place] % (Auto) Eos % (Auto) Baso % (Auto) Neut # (Auto) Smear Path Review Sodium Potassium Chloride Carbon Dioxide BUN Creatinine Estimated GFR BUN/Creatinine Ratio Glucose Calcium Procalcitonin 3.00 H Assessment & Plan Plan: Assessment/Plan Narrative: Improving after small-bowel obstruction secondary to some sort of inflammatory process in the distal small bowel. We will advance her to full liquids tonight and if she tolerates that without difficulty soft mechanical diet in the morning. Stool cultures are pending. Quality VTE Deep Vein Thrombosis/Pulmonary Embolism Present on Admission: No
[2018-02-20] VITALS (9 sets, daily range): BP systolic 148–159; BP diastolic 82–100; PULSE 73–78; RESP 16–18; TEMP 36.7–36.8; O2SAT 95–98
[2018-02-20] MEDS: CEFOTETAN 2 GM/50 ML PIGGYBACK IV ×2 (03:43→16:04)
[2018-02-20] MEDS: SODIUM CHLORIDE 0.9% 1,000 ML 150 ML IV (04:54)
[2018-02-20 05:23] LABS: Calcium 7.6 mg/dL (8.4-10.2); Carbon Dioxide 27 mmol/L (22-32); Chloride 102 mmol/L (98-107); Estimated Glomerular Filt Rate > 60.0 mL/min (>60); Glucose 94 mg/dL (80-110); HEMOLYSIS < 15 (0-50); Potassium 2.9 mmol/L (3.4-5.1); Sodium 138 mmol/L (137-145)
[2018-02-20 05:24] LABS: Blood Urea Nitrogen < 2 mg/dL (7-17)
[2018-02-20] MEDS: HYDROMORPHONE PCA 6 MG/30 ML PCA.VIAL IV ×3 (05:48→23:20)
--- NOTE | 2018-02-20 07:52 | PC.NURSE ---
patient laying in bed, easily arousable this morning. Denies pain, n/v or other complaint. States she slept well. IV fluids and potassium infusing as ordered, ESCROW CLERK of dilaudid in place with button in reach. Call light within reach. Continue to follow.
[2018-02-20] MEDS: POTASSIUM CHLORIDE 60 MEQ in SODIUM CHLORIDE 0.9% 500 ML 40 ML IV (09:12)
[2018-02-20] MEDS: PANTOPRAZOLE 40 MG VIAL IV (09:12)
[2018-02-20] MEDS: ENOXAPARIN 40 MG/0.4 ML SYRINGE SUBCUT (09:12)
--- NOTE | 2018-02-20 15:09 | PM.PN.1 ---
Subjective Date Patient Seen: 02/20/18 Time Patient Seen: 15:10 Interval history: Maria Dolores is in good spirits today. She says she tolerated breakfast okay but only a little bit of it was even edible. She reports that the rest of it was so hard and ?overdone? that she did need not want it. She has ordered tomato soup for lunch but she still wants mac and cheese. She says her abdomen really does not hurt very much anymore. She has continued to have small bowel movements. She reports that she just feels very very tired currently. Exam Vital Signs (past 8 hours): - 02/20/18 09:16 02/20/18 13:56 Temperature 98.0 F 98.1 F Pulse Rate 75 75 Respiratory Rate 16 16 Blood Pressure 148/83 H 148/100 H Pulse Oximetry 98 96 Oxygen Delivery Method Room Air Oxygen Flow Rate 0 Narrative Exam Narrative: Lungs: Clear bilaterally Heart: Regular rate and rhythm without murmur Abdomen: Soft, minimal tenderness to palpation in the right lower quadrant, active bowel sounds Extremities: Warm and well perfused and without edema Objective Labs Result Diagrams: 02/19/18 05:06 02/20/18 04:56 Labs: Laboratory Results - last 24 hr 02/20/18 04:56 Sodium 138 Potassium 2.9 L Chloride 102 Carbon Dioxide 27 BUN < 2 L Creatinine 0.40 L Estimated GFR > 60.0 BUN/Creatinine Ratio 5.0 L Glucose 94 Calcium 7.6 L Assessment & Plan Plan: Assessment/Plan Narrative: Replace potassium today with another 60 mEq. She came up from 2.7 to 2.9 after 60 mEq yesterday. Hopefully, we can get some mac and cheese in her tonight and if she continues to do well, we will shoot for discharge tomorrow. Quality VTE Deep Vein Thrombosis/Pulmonary Embolism Present on Admission: No
--- NOTE | 2018-02-20 16:23 | PC.NURSE ---
PM shift Pt has no c/o pain, ambulating in room SBA with FWW. Denies nausea, meal ordered. Flatus + No BM yet this shift. 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 Call light in reach.
[2018-02-21 00:04] VITALS: BP 139/87; PULSE 71; RESP 18; TEMP 36.8; O2SAT 98
[2018-02-21] MEDS: CEFOTETAN 2 GM/50 ML PIGGYBACK IV (04:24)
[2018-02-21 04:35] VITALS: BP 156/97; PULSE 68; RESP 18; TEMP 36.7; O2SAT 95
[2018-02-21 06:19] LABS: Blood Urea Nitrogen < 2 mg/dL (7-17); Calcium 8.2 mg/dL (8.4-10.2); Carbon Dioxide 28 mmol/L (22-32); Chloride 101 mmol/L (98-107); Estimated Glomerular Filt Rate > 60.0 mL/min (>60); Glucose 87 mg/dL (80-110); HEMOLYSIS < 15 (0-50); Magnesium 1.3 mg/dL (1.6-2.3); Potassium 3.2 mmol/L (3.4-5.1); Sodium 138 mmol/L (137-145)
[2018-02-21] MEDS: SODIUM CHLORIDE 0.9% 1,000 ML 150 ML IV (06:37)
[2018-02-21] MEDS: HYDROMORPHONE PCA 6 MG/30 ML PCA.VIAL IV (06:39)
[2018-02-21 07:00] VITALS: BP 183/93; PULSE 66; RESP 18; TEMP 36.3; O2SAT 97
[2018-02-21] MEDS: PANTOPRAZOLE 40 MG VIAL IV (10:50)
[2018-02-21] MEDS: ENOXAPARIN 40 MG/0.4 ML SYRINGE SUBCUT (10:50)
[2018-02-21 12:09] VITALS: BP 139/87; PULSE 76; RESP 16; TEMP 36.9; O2SAT 96
[2018-02-21] MEDS: MAGNESIUM SULFATE 4 GM/100 ML PIGGYBACK IV (12:15)
--- NOTE | 2018-02-21 13:36 | PC.NURSE ---
patient denies abd pain or nausea. passing flatus. bowel tones present. eating small amts slowly. abd soft and non-tender. set up assist to shower this am, she is dressed sitting in recliner, hoping to go home later today. iv mag rider infusing.
--- NOTE | 2018-02-21 14:45 | DIET.PN ---
Provided nutrition education on low fiber/low residue diet. Handouts included. Discussed choosing foods with <3grams of fiber/serving. Provided food list of low fiber foods and foods to avoid. Plan to follow x2 weeks. Will begin reintroducing high fiber foods one at a time as tolerated with increased water intake. Recommended multi vitamin.
--- NOTE | 2018-02-21 14:47 | CM.DPC ---
DCP: continued: Dr. Mueller has now ok'd pt for d/c today. P: home today as planned when RN completes the d/c paperwork and teaching.
--- NOTE | 2018-02-27 21:28 | P.DS_ITS ---
History of Present Illness Date Patient Seen: 02/21/18 Time Patient Seen: 11:24 Chief complaint: RIGHT SIDE ABDOMINAL PAIN Narrative: Maria Dolores is a fairly healthy and active 72-year-old lady who is well known to me from a recent admission for a cecal mass. She underwent a laparoscopic right hemicolectomy and the mass was revealed to be benign in nature. She presented to the emergency room on the day of admission complaining of abdominal pain. Her workup was consistent with small-bowel obstruction and so she was admitted to our service for treatment. Discharge Providers Date of admission: 02/16/18 06:43 Primary care physician: Sayra Russo MD Consults: 02/16/18 09:37 Consult to General Surgery Routine Comment: Consulting Provider: Elias Verdin Reason for consultation: admission Has provider been notified: Yes 02/16/18 15:09 Consult to Dietitian, Adult Routine Comment: Reason For Exam: mild protein calorie malnutrition/ SBO Consult to Discharge Planning Routine Comment: 02/21/18 11:52 Consult to Dietitian, Adult Routine Comment: Reason For Exam: Patient requesting guidance Discharge provider: Aura Mueller MD Summary Discharge Diagnosis: Small-bowel obstruction Hospital Course: Maria Dolores was admitted and initially pain was our biggest bladimir. CT scans revealed a thickened segment of small bowel proximal to the area of the anastomosis. She was presumptively placed on cefotetan and seemed to respond nicely. Although we never had an offending organism, we continued the cefotetan until white count and differential were normal. By the 2nd hospital day, she had significant improvement in bowel function. By the day of discharge, she was eating a regular diet and her bowel function was returning to normal. She did not require any additional pain medications. She and her were visited by the dietitian on the date of discharge to help with ideas concerning nutrition. This was intended to help her regain her strength as she has evidence of moderate protein calorie malnutrition, specifically weight loss and loss of fat stores. At the time of discharge, she is walking the halls unassisted, eating a regular diet, and does not require any pain medication. Status at Discharge Cognitive/behavioral status at discharge: Normal Functional status at discharge: uses cane/walker Overall status at discharge: patient is progressing back to baseline Time Spent with Patient Less than 30 minutes Exam Vital Signs (past 8 hours): Oxygen Delivery Method Room Air Oxygen Flow Rate 0 Objective Labs Result Diagrams: 02/19/18 05:06 02/21/18 05:37 Discharge Plan Discharge Plan Patient Disposition: Home Discharge Med Rec/Prescriptions Prescriptions: Continue tramadol-acetaminophen 37.5-325 mg tablet 1 tab PO Q4H MDD 6 PRN (Reason: pain) Qty: 30 RF: 0 ondansetron [Zofran ODT] 4 mg tablet,disintegrating 4 mg PO Q6H MDD 6 PRN (Reason: nausea and vomiting) Qty: 20 RF: 0 ondansetron [Zofran ODT] 4 mg tablet,disintegrating 4 mg PO Q6-8H MDD 6 PRN (Reason: nausea and vomiting) Qty: 10 RF: 0 latanoprost 0.005 % drops 1 drp ophthalmic (eye) DIRECTED RF: 0 losartan-hydrochlorothiazide 50-12.5 mg tablet 1 tab PO DAILY RF: 0 Calcium 1 tab PO DAILY RF: 0 omega 6-nby-ndh-fish oil [[place]-3] 350 mg-235 mg- 90 mg-597 mg Capsule, Delayed Release(Dr/Ec) 1 cap PO DAILY RF: 0 aspirin [Aspir-81] 81 mg Tablet,Delayed Release (Dr/Ec) 1 tab PO DAILY RF: 0 multivitamin Tablet 1 tab PO DAILY RF: 0 Follow up/Referrals: Sayra Russo MD [Primary Care Provider] - Provider Discharge Instructions Diet: Diet as Tolerated Skin/Wound/Dressing Care Report to your healthcare provider any signs of infection, such as:: chills, fever, night sweats and increased pain Visit Report/Discharge Packet Instructions: Low-Fiber/Low-Residue Diet, DI for Small Bowel Obstruction Visit Report Forms: Stroke Signs & Symptoms Discharge Data Primary Care Provider: Sayra Russo Attending Provider: Elias Verdin Admit Date/Time: 02/16/18 06:43 Discharges patient from system. Discharge Date/Time: 02/21/18 16:35 Quality VTE Deep Vein Thrombosis/Pulmonary Embolism Present on Admission: No
== END 2018-02-21 16:35 | disposition home or self-care (01) | DRG 389 ==
LOC: ED 06:00 → AC 06:44
PROVIDERS: Surgery; Admitting Provider Surgery; Emergency Provider Emergency Medicine; PCP Internal Medicine; Visit Provider Surgery
DX: K56.609 Unspecified intestinal obstruction, unspecified as to partial versus complete obstruction (principal); C91.10 Chronic lymphocytic leukemia of B-cell type not having achieved remission; Z68.1 Body mass index [BMI] 19.9 or less, adult; E44.0 Moderate protein-calorie malnutrition; I10 Essential (primary) hypertension; F17.210 Nicotine dependence, cigarettes, uncomplicated; Z68.21 Body mass index [BMI] 21.0-21.9, adult; K52.9 Noninfective gastroenteritis and colitis, unspecified
CPT/HCPCS: 36415; 74019; 74022; 74177; 80048; 80053; 81003; 83605; 83690; 83735; 84145; 85025; 86850; 86870; 86900; 86901; 87040; 87177; 94762; 96361; 96374; 99284; 99285; 99406; C9113; J1170; J1650; J2270; J3475; J3480; Q9967

== ENCOUNTER 2018-03-22 12:16 | Inpatient (IN) | payer MEDICARE, SELFPAY ==
[2018-02-16 06:50] VITALS: BMI 15.7
[2018-03-22] VITALS (13 sets, daily range): BP systolic 118–179; BP diastolic 75–108; PULSE 104–128; RESP 11–38; TEMP 36.4–37.3; O2SAT 94–100; BMI 20.7
--- NOTE | 2018-03-22 | PATH_ITS ---
[facility] Accession Number: [id number] . 01 Material submitted: . PART A: ANASTOMOSIS AND PIECES OF STRICTURE PART B: SMALL BOWEL SEGMENT . 02 Diagnosis: A. Anastomosis and Pieces of Stricture, Excision: Segments of bowel anastomosis with erosions, transmural suppurative inflammation and serositis, consistent with clinical history of perforated bowel obstruction. Negative for dysplasia or malignancy. . B. Small Bowel Segment, Resection: Segment of small bowel with serosal adhesions and serositis. Negative for dysplasia or malignancy. MRV/03/27/2018 . 02 Electronically signed: . Segundo Mcgee MD, PhD, Pathologist NPI- [id number] . 01 Gross description: . (A) Received in formalin, labeled anastomosis and stricture segments, are multiple unoriented pieces of colon (5.5 x 3.8 x 1.5 cm in aggregate). Some pieces have a staple line. The section margins are inked black. [facility] serial sections submitted in cassettes A1 and A2. (B) Received in formalin, labeled piece of small bowel, are two unoriented segments of small bowel (segment #1: length-3.6 cm, resection margin #1 and #2 diameter-3.3 cm; segment #2: length-7.3 cm, resection margin #1 diameter-1.7 cm, resection margin #2 diameter-3.0 cm). Segment #1 resection margins are received stapled. Segment #2 resection margin #1 is received opened, and resection margin #2 is stapled. Both segments have roberts-red smooth and shiny serosa. Segment #2 is partially covered in goel-roberts flaky friable exudate. Both segments have roberts smooth and shiny mucosa with normal folds with the exception of the mucosa adjacent to resection margin #1 in segment #1. This mucosa is black-brown smooth and flat. No nodules, masses or lesions are identified. The resection margins are inked black. Section code: (B1) segment #1, two full length longitudinal sections with resection margin #1 and #2; (B2, B3) segment #1, international account representative serial sections; (B4, B5) segment #2, resection margin #1, two longitudinal sections; (B6) segment #2, resection margin #2, longitudinal international account representative; (B7, B8) segment #2, international account representative serial sections submitted from resection margin #1 to #2. ([id number]) /[facility] . 02 Pathologist provided ICD-10: K56.699 . 02 CPT . 262483, 123067 Performed at: 01 [facility] [address] [id number] MD Russ Jay MD Phone: [phone] Performed at: 02 [facility] [address] [place] [id number] MD Jethro Presley MD Phone: [phone]
--- NOTE | 2018-03-22 12:21 | ED.ABDPAIN ---
HPI - Abdominal Pain <PAULO Plunkett - Last Filed: 03/22/18 21:12> General Chief Complaint: Abdominal Pain Stated Complaint: abd pain Time Seen by Provider: 03/22/18 12:21 Source: patient and EMS Mode of arrival: EMS Limitations: no limitations History of Present Illness HPI narrative: 72-year-old female with history of small-bowel obstruction and hemicolectomy everyday smoker here for complaint of pain to her abdomen mostly in the right side that started earlier this morning. She denies any trauma to the area. She has positive nausea vomiting. Last bowel movement was yesterday and was unremarkable. She denies any urinary symptoms. No known fever. Worsening pain with palpation to that area. She denies any flank pain. Related Data Home Medications Medication Instructions Recorded Confirmed aspirin [Aspir-81] 1 tab PO DAILY 11/15/17 02/25/18 multivitamin 1 tab PO DAILY 11/15/17 02/25/18 omega 3-eao-ukq-fish oil [[place]-3] 1 cap PO DAILY 11/15/17 02/25/18 Calcium 1 tab PO DAILY 12/24/17 02/25/18 latanoprost 1 drp OPHTHALMIC (EYE) DIRECTED 12/24/17 02/25/18 losartan-hydrochlorothiazide 1 tab PO DAILY 12/24/17 02/25/18 Previous Rx's Medication Instructions Recorded ondansetron 4 mg disintegrating 4 mg PO Q6-8H PRN #10 tab MDD 6 01/01/18 tablet ondansetron 4 mg disintegrating 4 mg PO Q6H PRN #20 tab MDD 6 01/01/18 tablet tramadol 37.5 mg-acetaminophen 325 1 tab PO Q4H PRN #30 tab MDD 6 01/01/18 mg tablet Allergies Allergy/AdvReac Type Severity Reaction Status Date / Time lisinopril Allergy Severe SWELLING Verified 01/24/18 11:13 LIPS, TONGUE Review of Systems <PAULO Plunkett - Last Filed: 03/22/18 21:12> Constitutional Denies chills, Denies fever(s), Denies lethargy and Denies weakness Eyes Denies change in vision, Denies eye discharge, Denies irritation and Denies loss of vision ENT Ears, Nose, Mouth, and Throat: Denies change in voice, Denies neck pain and Denies sore throat Cardiovascular Denies chest pain, Denies irregular heart rhythm, Denies lightheadedness, Denies palpitations, Denies dyspnea, Denies dyspnea on exertion and Denies orthopnea Respiratory Denies cough, Denies dyspnea, Denies dyspnea on exertion and Denies wheezing Gastrointestinal Gastrointestinal: Reports abdominal pain and Reports nausea Genitourinary Denies hematuria, Denies flank pain, Denies urinary incontinence and Denies urinary urgency Musculoskeletal Denies neck pain Integumentary/Breasts Denies pruritus, Denies erythema, Denies rash and Denies wounds Neurologic Denies confusion, Denies loss of vision and Denies weakness Psychiatric Denies anxiety, Denies confusion, Denies depression, Denies homicidal ideation and Denies suicidal ideation Endocrine Denies palpitations Hematologic/Lymphatic Denies easy bruising Allergic/Immunologic Denies wheezing Exam <PAULO Plunkett - Last Filed: 03/22/18 21:12> Initial Vital Signs Initial Vital Signs: Vital Signs Temperature 97.9 F 03/22/18 12:22 Pulse Rate 104 H 03/22/18 12:22 Respiratory Rate 30 H 03/22/18 12:22 Blood Pressure 157/95 H 03/22/18 12:22 Pulse Oximetry 94 03/22/18 12:22 Const General: cooperative and well developed Nutritional Appearance: well nourished Orientation: alert, awake, oriented x3 and not confused HENMT Mouth: oral mucosae normal and moist mucous membranes Eyes Conjunctivae: conjunctivae normal Sclera: sclerae normal Pupils: PERRL EOM: EOM intact bilaterally Resp Effort & Inspection: normal respiratory effort, able to speak in complete sentences, no respiratory distress and no use of accessory muscles Auscultation: clear to auscultation bilaterally, no rales, no rhonchi and no wheezes Cardio Rate: regular rate Rhythm: regular rhythm Heart Sounds: no click, no gallops, no murmurs and no rubs Pulses: normal peripheral pulses GI Inspection: non-distended Palpation: no hepatosplenomegaly, guarding, No pulsatile mass and tender Other: Tenderness to right lower quadrant and right upper quadrant on palpation. Positive guarding. Skin General: no rashes or lesions noted, No jaundice and No petechiae Neuro General: alert, oriented x3, gait normal and no focal motor deficits Speech: speech normal <Carole Palomo DO - Last Filed: 03/23/18 08:08> Initial Vital Signs Initial Vital Signs: Vital Signs Temperature 97.9 F 03/22/18 12:22 Pulse Rate 104 H 03/22/18 12:22 Respiratory Rate 30 H 03/22/18 12:22 Blood Pressure 157/95 H 03/22/18 12:22 Pulse Oximetry 94 03/22/18 12:22 Const General: cooperative and in distress (In pain) Chest Chest: normal inspection of the chest Resp Effort & Inspection: normal respiratory effort and able to speak in complete sentences Cardio Rate: tachycardic Rhythm: regular rhythm GI Palpation: firm, guarding and tender Course <PAULO Plunkett - Last Filed: 03/22/18 21:12> Orders Ordered: ED Orders 03/24/18 08:00 Consult to PICC Line RN Routine Piperacillin/Tazobactam/Dextrose (Zosyn) 3.375 gm in 50 mls @ 100 mls/hr IV Q6HR [facility] Last Admin: 03/23/18 05:38 Dose: 100 mls/hr Infusion: 03/23/18 02:38 Dose: 0 mls/hr Admin: 03/23/18 00:42 Dose: 100 mls/hr FENT 2MCG/BUPIV 0.125% EPI (Ivwvvgpc-Wkywn-Eb 2 Mcg-0.125%) 2 mcg in 100 mls @ 5 mls/hr EPIDURAL CONT [facility] Last Admin: 03/22/18 22:11 Dose: 5 mls/hr Lactated Ringer's (Lactated Ringers) 1,000 mls @ 150 mls/hr IV CONT [facility] Last Admin: 03/23/18 05:39 Dose: 150 mls/hr Infusion: 03/23/18 05:11 Dose: 150 mls/hr Admin: 03/22/18 22:30 Dose: 150 mls/hr Ondansetron HCl (Zofran) 4 mg IV Q6H PRN PRN Reason: Nausea And Vomiting Discontinued Medications Fentanyl (Sublimaze) 25 mcg IV Q5MIN PRN PRN Reason: Pain, Mild (1-3) Hydromorphone HCl (Dilaudid) 1 mg IV NOW ONE Stop: 03/22/18 12:22 Last Admin: 03/22/18 12:45 Dose: 1 mg Hydromorphone HCl (Dilaudid) 1 mg IV NOW ONE Stop: 03/22/18 13:30 Last Admin: 03/22/18 13:30 Dose: 1 mg Hydromorphone HCl (Dilaudid) 1 mg IV NOW ONE Stop: 03/22/18 14:46 Last Admin: 03/22/18 14:50 Dose: 1 mg Hydromorphone HCl (Dilaudid) 0.5 mg IV NOW ONE Stop: 03/22/18 15:49 Last Admin: 03/22/18 15:50 Dose: 0.5 mg Hydromorphone HCl (Dilaudid) 0.25 mg IV Q5MIN PRN PRN Reason: Pain, Mild (1-3) Sodium Chloride (Normal Saline 0.9%) 1,000 mls @ 1,000 mls/hr IV BOLUS ONE Stop: 03/22/18 13:20 Last Infusion: 03/22/18 14:05 Dose: 0 mls/hr Admin: 03/22/18 12:44 Dose: 1,000 mls/hr Lactated Ringer's (Lactated Ringers) 1,000 mls @ 1,000 mls/hr IV BOLUS ONE Stop: 03/22/18 14:30 Last Infusion: 03/22/18 15:53 Dose: 0 mls/hr Admin: 03/22/18 14:51 Dose: 1,000 mls/hr Piperacillin/Tazobactam/Dextrose (Zosyn) 3.375 gm in 50 mls @ 100 mls/hr IV NOW ONE Stop: 03/22/18 14:01 Last Infusion: 03/22/18 19:25 Dose: 0 mls/hr Admin: 03/22/18 18:51 Dose: 100 mls/hr Infusion: 03/22/18 14:59 Dose: 0 mls/hr Admin: 03/22/18 14:00 Dose: 100 mls/hr Lactated Ringer's (Lactated Ringers) 1,000 mls @ 150 mls/hr IV CONT [facility] Last Admin: 03/22/18 16:16 Dose: Lactated Ringer's (Lactated Ringers) 1,000 mls @ 1,000 mls/hr IV BOLUS ONE Stop: 03/22/18 16:37 Last Infusion: 03/22/18 16:15 Dose: 1,000 mls/hr Admin: 03/22/18 15:50 Dose: 1,000 mls/hr Lactated Ringer's (Lactated Ringers) 1,000 mls @ 42 mls/hr IV CONT [facility] Last Infusion: 03/22/18 21:25 Dose: 0 mls/hr Admin: 03/22/18 17:00 Dose: 42 mls/hr Infusion: 03/22/18 17:00 Dose: 42 mls/hr Admin: 03/22/18 16:15 Dose: 42 mls/hr Ondansetron HCl (Zofran) 4 mg IV NOW ONE Stop: 03/22/18 12:22 Last Admin: 03/22/18 12:45 Dose: 4 mg Ondansetron HCl (Zofran) 4 mg IV NOW PRN PRN Reason: Nausea And Vomiting Pantoprazole Sodium (Protonix) 40 mg IV NOW ONE Stop: 03/22/18 16:04 Last Admin: 03/22/18 16:15 Dose: 40 mg Vital Signs - 8 hr 03/23/18 00:07 03/23/18 01:02 03/23/18 02:00 Temperature 98.0 F Pulse Rate 107 H 100 H 100 H Respiratory Rate 13 16 13 Blood Pressure 94/56 L 88/67 L 83/57 L Pulse Oximetry 98 98 100 03/23/18 02:01 03/23/18 02:10 03/23/18 03:00 Temperature Pulse Rate 102 H 98 H Respiratory Rate 15 Blood Pressure 88/62 L 85/61 L Pulse Oximetry 98 98 03/23/18 04:00 03/23/18 04:23 03/23/18 05:02 Temperature 97.2 F L Pulse Rate 100 H 96 H Respiratory Rate 19 20 Blood Pressure 91/68 91/66 Pulse Oximetry 97 98 99 03/23/18 06:02 03/23/18 07:19 Temperature 99.1 F Pulse Rate 101 H 94 H Respiratory Rate 18 16 Blood Pressure 90/65 91/57 L Pulse Oximetry 97 97 <Carole Palomo, - Last Filed: 03/23/18 08:08> Orders Ordered: ED Orders 03/24/18 08:00 Consult to PICC Line RN Routine Piperacillin/Tazobactam/Dextrose (Zosyn) 3.375 gm in 50 mls @ 100 mls/hr IV Q6HR [facility] Last Admin: 03/23/18 05:38 Dose: 100 mls/hr Infusion: 03/23/18 02:38 Dose: 0 mls/hr Admin: 03/23/18 00:42 Dose: 100 mls/hr FENT 2MCG/BUPIV 0.125% EPI (Nsgdbdlh-Ebreq-Gt 2 Mcg-0.125%) 2 mcg in 100 mls @ 5 mls/hr EPIDURAL CONT [facility] Last Admin: 03/22/18 22:11 Dose: 5 mls/hr Lactated Ringer's (Lactated Ringers) 1,000 mls @ 150 mls/hr IV CONT [facility] Last Admin: 03/23/18 05:39 Dose: 150 mls/hr Infusion: 03/23/18 05:11 Dose: 150 mls/hr Admin: 03/22/18 22:30 Dose: 150 mls/hr Ondansetron HCl (Zofran) 4 mg IV Q6H PRN PRN Reason: Nausea And Vomiting Discontinued Medications Fentanyl (Sublimaze) 25 mcg IV Q5MIN PRN PRN Reason: Pain, Mild (1-3) Hydromorphone HCl (Dilaudid) 1 mg IV NOW ONE Stop: 03/22/18 12:22 Last Admin: 03/22/18 12:45 Dose: 1 mg Hydromorphone HCl (Dilaudid) 1 mg IV NOW ONE Stop: 03/22/18 13:30 Last Admin: 03/22/18 13:30 Dose: 1 mg Hydromorphone HCl (Dilaudid) 1 mg IV NOW ONE Stop: 03/22/18 14:46 Last Admin: 03/22/18 14:50 Dose: 1 mg Hydromorphone HCl (Dilaudid) 0.5 mg IV NOW ONE Stop: 03/22/18 15:49 Last Admin: 03/22/18 15:50 Dose: 0.5 mg Hydromorphone HCl (Dilaudid) 0.25 mg IV Q5MIN PRN PRN Reason: Pain, Mild (1-3) Sodium Chloride (Normal Saline 0.9%) 1,000 mls @ 1,000 mls/hr IV BOLUS ONE Stop: 03/22/18 13:20 Last Infusion: 03/22/18 14:05 Dose: 0 mls/hr Admin: 03/22/18 12:44 Dose: 1,000 mls/hr Lactated Ringer's (Lactated Ringers) 1,000 mls @ 1,000 mls/hr IV BOLUS ONE Stop: 03/22/18 14:30 Last Infusion: 03/22/18 15:53 Dose: 0 mls/hr Admin: 03/22/18 14:51 Dose: 1,000 mls/hr Piperacillin/Tazobactam/Dextrose (Zosyn) 3.375 gm in 50 mls @ 100 mls/hr IV NOW ONE Stop: 03/22/18 14:01 Last Infusion: 03/22/18 19:25 Dose: 0 mls/hr Admin: 03/22/18 18:51 Dose: 100 mls/hr Infusion: 03/22/18 14:59 Dose: 0 mls/hr Admin: 03/22/18 14:00 Dose: 100 mls/hr Lactated Ringer's (Lactated Ringers) 1,000 mls @ 150 mls/hr IV CONT [facility] Last Admin: 03/22/18 16:16 Dose: Lactated Ringer's (Lactated Ringers) 1,000 mls @ 1,000 mls/hr IV BOLUS ONE Stop: 03/22/18 16:37 Last Infusion: 03/22/18 16:15 Dose: 1,000 mls/hr Admin: 03/22/18 15:50 Dose: 1,000 mls/hr Lactated Ringer's (Lactated Ringers) 1,000 mls @ 42 mls/hr IV CONT [facility] Last Infusion: 03/22/18 21:25 Dose: 0 mls/hr Admin: 03/22/18 17:00 Dose: 42 mls/hr Infusion: 03/22/18 17:00 Dose: 42 mls/hr Admin: 03/22/18 16:15 Dose: 42 mls/hr Ondansetron HCl (Zofran) 4 mg IV NOW ONE Stop: 03/22/18 12:22 Last Admin: 03/22/18 12:45 Dose: 4 mg Ondansetron HCl (Zofran) 4 mg IV NOW PRN PRN Reason: Nausea And Vomiting Pantoprazole Sodium (Protonix) 40 mg IV NOW ONE Stop: 03/22/18 16:04 Last Admin: 03/22/18 16:15 Dose: 40 mg Vital Signs - 8 hr 03/23/18 00:07 03/23/18 01:02 03/23/18 02:00 Temperature 98.0 F Pulse Rate 107 H 100 H 100 H Respiratory Rate 13 16 13 Blood Pressure 94/56 L 88/67 L 83/57 L Pulse Oximetry 98 98 100 03/23/18 02:01 03/23/18 02:10 03/23/18 03:00 Temperature Pulse Rate 102 H 98 H Respiratory Rate 15 Blood Pressure 88/62 L 85/61 L Pulse Oximetry 98 98 03/23/18 04:00 03/23/18 04:23 03/23/18 05:02 Temperature 97.2 F L Pulse Rate 100 H 96 H Respiratory Rate 19 20 Blood Pressure 91/68 91/66 Pulse Oximetry 97 98 99 03/23/18 06:02 03/23/18 07:19 Temperature 99.1 F Pulse Rate 101 H 94 H Respiratory Rate 18 16 Blood Pressure 90/65 91/57 L Pulse Oximetry 97 97 MDM - Abdominal Pain <PAULO Plunkett - Last Filed: 03/22/18 21:12> Lab Data Result diagrams: 03/22/18 22:00 03/22/18 22:00 Lab Results 03/22/18 03/22/18 03/22/18 Range/Units 12:30 13:00 13:00 WBC 33.0 H* (4.5-11.0) X10^3/uL RBC 5.43 H (4.0-5.2) X10^6/uL Hgb 15.7 (12.0-16.0) g/dL Hct 47.4 H (36-46) % MCV 87.2 (80-100) fL MCH 28.9 (26-34) PG MCHC 33.2 (30-36) % RDW 17.6 H (11.6-14.8) % Plt Count 302 (150-400) X10^3/uL Neut % (Auto) Not Reportable Lymph % (Auto) Not Reportable [place] % (Auto) Not Reportable Eos % (Auto) Not Reportable Baso % (Auto) Not Reportable Neut # (Auto) (6837-1941) /uL Total Counted 100 Seg Neutrophils % 56.0 (38-70) % Band Neutrophils % 9.0 H (3-7) % Lymphocytes % (Manual) 35.0 (25-45) % Neutrophils # (Manual) 04259 H (8709-6939) /uL RBC Morphology Normal morphology Sodium 144 (137-145) mmol/L Potassium 3.6 (3.4-5.1) mmol/L Chloride 102 (98-107) mmol/L Carbon Dioxide 32 (22-32) mmol/L BUN 10 (7-17) mg/dL Creatinine 0.70 (0.52-1.04) mg/dL Estimated GFR > 60.0 (>60) mL/min BUN/Creatinine Ratio 14.3 (6-22) Glucose 144 H (80-110) mg/dL Lactate (0.7-2.1) mmol/L Calcium 9.1 (8.4-10.2) mg/dL Total Bilirubin 1.1 (0.2-1.3) mg/dL AST 28 (14-36) IU/L ALT 24 (9-52) IU/L Alkaline Phosphatase 105 (38-126) U/L Total Protein 6.7 (6.3-8.2) g/dL Albumin 3.6 (3.5-5.0) g/dL Globulin 3.1 (1.7-4.1) g/dL Albumin/Globulin Ratio 1.2 (1.0-2.8) Lipase 20 L (23-300) U/L Procalcitonin 0.38 (<0.5) ng/mL Urine Color Urine Appearance Urine pH (4.5-8.0) Ur Specific [place] (1.000-1.035) Urine Protein (Negative) Urine Glucose (UA) (Normal) g/dL Urine Ketones (NEGATIVE) Urine Occult Blood (Negative) Urine Nitrate (Negative) Urine Bilirubin (NEGATIVE) Urine Urobilinogen (0.2) E.U./dL Ur Leukocyte Esterase (NEGATIVE) Urine RBC (0-5/HPF) Urine WBC (0-5/HPF) Urine Bacteria (None) Hyaline Casts (None) Urine Mucus (Negative) Ur Culture Indicated? Micro UA Comment Nasal Screen MRSA (PCR) (Negative) 03/22/18 03/22/18 03/22/18 Range/Units 13:00 14:40 22:00 WBC 20.1 H (4.5-11.0) X10^3/uL RBC 5.11 (4.0-5.2) X10^6/uL Hgb 14.7 (12.0-16.0) g/dL Hct 44.8 (36-46) % MCV 87.8 (80-100) fL MCH 28.8 (26-34) PG MCHC 32.8 (30-36) % RDW 17.6 H (11.6-14.8) % Plt Count 250 (150-400) X10^3/uL Neut % (Auto) 56.5 Lymph % (Auto) 41.6 H [place] % (Auto) 1.8 L Eos % (Auto) 0.0 L Baso % (Auto) 0.1 Neut # (Auto) 16840 H (8368-0992) /uL Total Counted Seg Neutrophils % (38-70) % Band Neutrophils % (3-7) % Lymphocytes % (Manual) (25-45) % Neutrophils # (Manual) (1970-3544) /uL RBC Morphology Sodium (137-145) mmol/L Potassium (3.4-5.1) mmol/L Chloride (98-107) mmol/L Carbon Dioxide (22-32) mmol/L BUN (7-17) mg/dL Creatinine (0.52-1.04) mg/dL Estimated GFR (>60) mL/min BUN/Creatinine Ratio (6-22) Glucose (80-110) mg/dL Lactate 2.4 H (0.7-2.1) mmol/L Calcium (8.4-10.2) mg/dL Total Bilirubin (0.2-1.3) mg/dL AST (14-36) IU/L ALT (9-52) IU/L Alkaline Phosphatase (38-126) U/L Total Protein (6.3-8.2) g/dL Albumin (3.5-5.0) g/dL Globulin (1.7-4.1) g/dL Albumin/Globulin Ratio (1.0-2.8) Lipase (23-300) U/L Procalcitonin (<0.5) ng/mL Urine Color Yellow Urine Appearance Clear Urine pH 5.0 (4.5-8.0) Ur Specific [place] 1.015 (1.000-1.035) Urine Protein Negative (Negative) Urine Glucose (UA) Negative (Normal) g/dL Urine Ketones Negative (NEGATIVE) Urine Occult Blood Trace-intact (Negative) Urine Nitrate Negative (Negative) Urine Bilirubin Negative (NEGATIVE) Urine Urobilinogen 0.2 (0.2) E.U./dL Ur Leukocyte Esterase Negative (NEGATIVE) Urine RBC None seen (0-5/HPF) Urine WBC None seen (0-5/HPF) Urine Bacteria None seen (None) Hyaline Casts 0-1/lpf (None) Urine Mucus 2+ H (Negative) Ur Culture Indicated? Cult not indicated Micro UA Comment Not Reportable Nasal Screen MRSA (PCR) (Negative) 03/22/18 03/22/18 03/22/18 Range/Units 22:00 22:00 22:00 WBC (4.5-11.0) X10^3/uL RBC (4.0-5.2) X10^6/uL Hgb (12.0-16.0) g/dL Hct (36-46) % MCV (80-100) fL MCH (26-34) PG MCHC (30-36) % RDW (11.6-14.8) % Plt Count (150-400) X10^3/uL Neut % (Auto) Lymph % (Auto) [place] % (Auto) Eos % (Auto) Baso % (Auto) Neut # (Auto) (9041-2279) /uL Total Counted Seg Neutrophils % (38-70) % Band Neutrophils % (3-7) % Lymphocytes % (Manual) (25-45) % Neutrophils # (Manual) (7111-0649) /uL RBC Morphology Sodium 139 (137-145) mmol/L Potassium 4.0 (3.4-5.1) mmol/L Chloride 106 (98-107) mmol/L Carbon Dioxide 24 (22-32) mmol/L BUN 11 (7-17) mg/dL Creatinine 0.70 (0.52-1.04) mg/dL Estimated GFR > 60.0 (>60) mL/min BUN/Creatinine Ratio 15.7 (6-22) Glucose 123 H (80-110) mg/dL Lactate 3.7 H (0.7-2.1) mmol/L Calcium 7.8 L (8.4-10.2) mg/dL Total Bilirubin 1.0 (0.2-1.3) mg/dL AST 34 (14-36) IU/L ALT 24 (9-52) IU/L Alkaline Phosphatase 55 D (38-126) U/L Total Protein 4.7 L (6.3-8.2) g/dL Albumin 2.3 L (3.5-5.0) g/dL Globulin 2.4 (1.7-4.1) g/dL Albumin/Globulin Ratio 1.0 (1.0-2.8) Lipase (23-300) U/L Procalcitonin (<0.5) ng/mL Urine Color Urine Appearance Urine pH (4.5-8.0) Ur Specific [place] (1.000-1.035) Urine Protein (Negative) Urine Glucose (UA) (Normal) g/dL Urine Ketones (NEGATIVE) Urine Occult Blood (Negative) Urine Nitrate (Negative) Urine Bilirubin (NEGATIVE) Urine Urobilinogen (0.2) E.U./dL Ur Leukocyte Esterase (NEGATIVE) Urine RBC (0-5/HPF) Urine WBC (0-5/HPF) Urine Bacteria (None) Hyaline Casts (None) Urine Mucus (Negative) Ur Culture Indicated? Micro UA Comment Nasal Screen MRSA (PCR) Negative for mrsa (Negative) Point of care testing: Point of Care Testing Glucose POC 117 MDM Narrative Medical decision making narrative: CBC was obtained and shows elevated white count of 33. Chem panel was obtained was unremarkable. Lactate resolved at 2.4. Blood cultures are obtained and are pending. Urinalysis was negative. CT of the abdomen was obtained and shows inflammation along the sigmoid and descending colon. There is also free air in the abdomen. Discussed case with Dr. Kaila white who came to evaluate patient. Patient is under the care of surgery and is admitted via surgery. <Carole Palomo, DO - Last Filed: 03/23/18 08:08> Lab Data Attestation: I reviewed the patient's lab results. Lab Results 03/22/18 03/22/18 03/22/18 Range/Units 12:30 13:00 13:00 WBC 33.0 H* (4.5-11.0) X10^3/uL RBC 5.43 H (4.0-5.2) X10^6/uL Hgb 15.7 (12.0-16.0) g/dL Hct 47.4 H (36-46) % MCV 87.2 (80-100) fL MCH 28.9 (26-34) PG MCHC 33.2 (30-36) % RDW 17.6 H (11.6-14.8) % Plt Count 302 (150-400) X10^3/uL Neut % (Auto) Not Reportable Lymph % (Auto) Not Reportable [place] % (Auto) Not Reportable Eos % (Auto) Not Reportable Baso % (Auto) Not Reportable Neut # (Auto) (0788-0470) /uL Total Counted 100 Seg Neutrophils % 56.0 (38-70) % Band Neutrophils % 9.0 H (3-7) % Lymphocytes % (Manual) 35.0 (25-45) % Neutrophils # (Manual) 22955 H (5141-8584) /uL RBC Morphology Normal morphology Sodium 144 (137-145) mmol/L Potassium 3.6 (3.4-5.1) mmol/L Chloride 102 (98-107) mmol/L Carbon Dioxide 32 (22-32) mmol/L BUN 10 (7-17) mg/dL Creatinine 0.70 (0.52-1.04) mg/dL Estimated GFR > 60.0 (>60) mL/min BUN/Creatinine Ratio 14.3 (6-22) Glucose 144 H (80-110) mg/dL Lactate (0.7-2.1) mmol/L Calcium 9.1 (8.4-10.2) mg/dL Total Bilirubin 1.1 (0.2-1.3) mg/dL AST 28 (14-36) IU/L ALT 24 (9-52) IU/L Alkaline Phosphatase 105 (38-126) U/L Total Protein 6.7 (6.3-8.2) g/dL Albumin 3.6 (3.5-5.0) g/dL Globulin 3.1 (1.7-4.1) g/dL Albumin/Globulin Ratio 1.2 (1.0-2.8) Lipase 20 L (23-300) U/L Procalcitonin 0.38 (<0.5) ng/mL Urine Color Urine Appearance Urine pH (4.5-8.0) Ur Specific [place] (1.000-1.035) Urine Protein (Negative) Urine Glucose (UA) (Normal) g/dL Urine Ketones (NEGATIVE) Urine Occult Blood (Negative) Urine Nitrate (Negative) Urine Bilirubin (NEGATIVE) Urine Urobilinogen (0.2) E.U./dL Ur Leukocyte Esterase (NEGATIVE) Urine RBC (0-5/HPF) Urine WBC (0-5/HPF) Urine Bacteria (None) Hyaline Casts (None) Urine Mucus (Negative) Ur Culture Indicated? Micro UA Comment Nasal Screen MRSA (PCR) (Negative) 03/22/18 03/22/18 03/22/18 Range/Units 13:00 14:40 22:00 WBC 20.1 H (4.5-11.0) X10^3/uL RBC 5.11 (4.0-5.2) X10^6/uL Hgb 14.7 (12.0-16.0) g/dL Hct 44.8 (36-46) % MCV 87.8 (80-100) fL MCH 28.8 (26-34) PG MCHC 32.8 (30-36) % RDW 17.6 H (11.6-14.8) % Plt Count 250 (150-400) X10^3/uL Neut % (Auto) 56.5 Lymph % (Auto) 41.6 H [place] % (Auto) 1.8 L Eos % (Auto) 0.0 L Baso % (Auto) 0.1 Neut # (Auto) 56116 H (5846-9669) /uL Total Counted Seg Neutrophils % (38-70) % Band Neutrophils % (3-7) % Lymphocytes % (Manual) (25-45) % Neutrophils # (Manual) (9759-2040) /uL RBC Morphology Sodium (137-145) mmol/L Potassium (3.4-5.1) mmol/L Chloride (98-107) mmol/L Carbon Dioxide (22-32) mmol/L BUN (7-17) mg/dL Creatinine (0.52-1.04) mg/dL Estimated GFR (>60) mL/min BUN/Creatinine Ratio (6-22) Glucose (80-110) mg/dL Lactate 2.4 H (0.7-2.1) mmol/L Calcium (8.4-10.2) mg/dL Total Bilirubin (0.2-1.3) mg/dL AST (14-36) IU/L ALT (9-52) IU/L Alkaline Phosphatase (38-126) U/L Total Protein (6.3-8.2) g/dL Albumin (3.5-5.0) g/dL Globulin (1.7-4.1) g/dL Albumin/Globulin Ratio (1.0-2.8) Lipase (23-300) U/L Procalcitonin (<0.5) ng/mL Urine Color Yellow Urine Appearance Clear Urine pH 5.0 (4.5-8.0) Ur Specific [place] 1.015 (1.000-1.035) Urine Protein Negative (Negative) Urine Glucose (UA) Negative (Normal) g/dL Urine Ketones Negative (NEGATIVE) Urine Occult Blood Trace-intact (Negative) Urine Nitrate Negative (Negative) Urine Bilirubin Negative (NEGATIVE) Urine Urobilinogen 0.2 (0.2) E.U./dL Ur Leukocyte Esterase Negative (NEGATIVE) Urine RBC None seen (0-5/HPF) Urine WBC None seen (0-5/HPF) Urine Bacteria None seen (None) Hyaline Casts 0-1/lpf (None) Urine Mucus 2+ H (Negative) Ur Culture Indicated? Cult not indicated Micro UA Comment Not Reportable Nasal Screen MRSA (PCR) (Negative) 03/22/18 03/22/18 03/22/18 Range/Units 22:00 22:00 22:00 WBC (4.5-11.0) X10^3/uL RBC (4.0-5.2) X10^6/uL Hgb (12.0-16.0) g/dL Hct (36-46) % MCV (80-100) fL MCH (26-34) PG MCHC (30-36) % RDW (11.6-14.8) % Plt Count (150-400) X10^3/uL Neut % (Auto) Lymph % (Auto) [place] % (Auto) Eos % (Auto) Baso % (Auto) Neut # (Auto) (9294-0073) /uL Total Counted Seg Neutrophils % (38-70) % Band Neutrophils % (3-7) % Lymphocytes % (Manual) (25-45) % Neutrophils # (Manual) (8391-8165) /uL RBC Morphology Sodium 139 (137-145) mmol/L Potassium 4.0 (3.4-5.1) mmol/L Chloride 106 (98-107) mmol/L Carbon Dioxide 24 (22-32) mmol/L BUN 11 (7-17) mg/dL Creatinine 0.70 (0.52-1.04) mg/dL Estimated GFR > 60.0 (>60) mL/min BUN/Creatinine Ratio 15.7 (6-22) Glucose 123 H (80-110) mg/dL Lactate 3.7 H (0.7-2.1) mmol/L Calcium 7.8 L (8.4-10.2) mg/dL Total Bilirubin 1.0 (0.2-1.3) mg/dL AST 34 (14-36) IU/L ALT 24 (9-52) IU/L Alkaline Phosphatase 55 D (38-126) U/L Total Protein 4.7 L (6.3-8.2) g/dL Albumin 2.3 L (3.5-5.0) g/dL Globulin 2.4 (1.7-4.1) g/dL Albumin/Globulin Ratio 1.0 (1.0-2.8) Lipase (23-300) U/L Procalcitonin (<0.5) ng/mL Urine Color Urine Appearance Urine pH (4.5-8.0) Ur Specific [place] (1.000-1.035) Urine Protein (Negative) Urine Glucose (UA) (Normal) g/dL Urine Ketones (NEGATIVE) Urine Occult Blood (Negative) Urine Nitrate (Negative) Urine Bilirubin (NEGATIVE) Urine Urobilinogen (0.2) E.U./dL Ur Leukocyte Esterase (NEGATIVE) Urine RBC (0-5/HPF) Urine WBC (0-5/HPF) Urine Bacteria (None) Hyaline Casts (None) Urine Mucus (Negative) Ur Culture Indicated? Micro UA Comment Nasal Screen MRSA (PCR) Negative for mrsa (Negative) Point of care testing: Point of Care Testing Glucose POC [address] scan - abdomen: Radiologist's impression: PROCEDURE: CT ABDOMEN PELVIS W CON INDICATIONS: Right upper and lower quadrant pain TECHNIQUE: After the administration of intravenous contrast, 5 mm thick sections acquired from the diaphragm to the symphysis. 5 mm coronal and sagittal reformats were acquired. For radiation dose reduction, the following was used: automated exposure control, adjustment of mA and/or kV according to patient size. COMPARISON: None. FINDINGS: Image quality: Excellent. ABDOMEN: Lung bases: Bibasilar scarring/atelectasis. Heart size is normal. Solid organs: Liver is normal in size and enhancement. Gallbladder unremarkable. Biliary system is non dilated. Pancreas enhances normally. Spleen is normal in size and enhancement. No adrenal nodules. Kidneys demonstrate normal size and enhancement, without hydronephrosis. Peritoneum and bowel: There is intraperitoneal free air. There is also scattered mild ascites. There is long segment colonic wall thickening and mucosal enhancement with adjacent stranding and fluid suggestive of colitis. The appendix is not well-seen. No discrete abscess is identified. Rectum is decompressed otherwise unremarkable. Scattered colonic diverticula are also noted although no definite focal diverticulitis. Postsurgical changes in the bowel, and probable anastomosis seen on image 48 series 2 Nodes and vessels: No retroperitoneal or mesenteric adenopathy by size criteria. Aorta and inferior vena cava are normal in size. Miscellaneous: No ventral hernias. PELVIS: Genitourinary: Bladder wall thickness is normal. Miscellaneous: No inguinal hernias or adenopathy. Bones: No suspicious bony lesions. No vertebral body compression fractures. IMPRESSION: Intraperitoneal free air. Long segment colonic wall thickening and mucosal enhancement primarily involving the sigmoid and descending colon suggestive of colitis, likely infectious or inflammatory. Mild ascites. No discrete abscess seen. Of note, the appendix is not visualized therefore please correlate clinically to exclude acute appendicitis. Surgical consultation recommended. Critical findings were immediately personally telephoned with Jones BATES in the emergency department at the time of study dictation. 1451 hrs. on 03/14/18 Dictated by: Dayron Briggs M.D. on 03/22/2018 at 14:42 MDM Narrative Medical decision making narrative: Discharge Plan Departure Patient Disposition: Admitted As Inpatient Clinical Impression: Abdominal pain Discharge Date/Time: 03/22/18 16:18 Interventions: ED Discharge Assessment Last Done: 03/22/18 16:18 Admit Date/Time: 03/22/18 16:20 Admit Provider: Senthil Bright <Carole Palomo DO - Last Filed: 03/23/18 08:08> Cosign ED Attending Cosignature Attestation: I was immediately available in the department for consultation. Documentation has been reviewed. I agree with assessment and plan.
--- NOTE | 2018-03-22 12:24 | DI.CT.S_ITS ---
PROCEDURE: CT ABDOMEN PELVIS W CON INDICATIONS: Right upper and lower quadrant pain TECHNIQUE: After the administration of intravenous contrast, 5 mm thick sections acquired from the diaphragm to the symphysis. 5 mm coronal and sagittal reformats were acquired. For radiation dose reduction, the following was used: automated exposure control, adjustment of mA and/or kV according to patient size. COMPARISON: None. FINDINGS: Image quality: Excellent. ABDOMEN: Lung bases: Bibasilar scarring/atelectasis. Heart size is normal. Solid organs: Liver is normal in size and enhancement. Gallbladder unremarkable. Biliary system is non dilated. Pancreas enhances normally. Spleen is normal in size and enhancement. No adrenal nodules. Kidneys demonstrate normal size and enhancement, without hydronephrosis. Peritoneum and bowel: There is intraperitoneal free air. There is also scattered mild ascites. There is long segment colonic wall thickening and mucosal enhancement with adjacent stranding and fluid suggestive of colitis. The appendix is not well-seen. No discrete abscess is identified. Rectum is decompressed otherwise unremarkable. Scattered colonic diverticula are also noted although no definite focal diverticulitis. Postsurgical changes in the bowel, and probable anastomosis seen on image 48 series 2 Nodes and vessels: No retroperitoneal or mesenteric adenopathy by size criteria. Aorta and inferior vena cava are normal in size. Miscellaneous: No ventral hernias. PELVIS: Genitourinary: Bladder wall thickness is normal. Miscellaneous: No inguinal hernias or adenopathy. Bones: No suspicious bony lesions. No vertebral body compression fractures. IMPRESSION: Intraperitoneal free air. Long segment colonic wall thickening and mucosal enhancement primarily involving the sigmoid and descending colon suggestive of colitis, likely infectious or inflammatory. Mild ascites. No discrete abscess seen. Of note, the appendix is not visualized therefore please correlate clinically to exclude acute appendicitis. Surgical consultation recommended. Critical findings were immediately personally telephoned with Jones BATES in the emergency department at the time of study dictation. 1451 hrs. on 03/14/18 Dictated by: Dayron Briggs M.D. on 03/22/2018 at 14:42 Approved by: Dayron Briggs M.D. on 03/22/2018 at 14:51
[2018-03-22] MEDS: SODIUM CHLORIDE 0.9% 1,000 ML 1000 ML IV (12:44)
[2018-03-22 12:45] LABS: Hematocrit 47.4 % (36-46); Hemoglobin 15.7 g/dL (12.0-16.0); Mean Corpuscular HGB Conc 33.2 % (30-36); Mean Corpuscular Hemoglobin 28.9 PG (26-34); Mean Corpuscular Volume 87.2 fL (80-100); Platelet Count 302 X10^3/uL (150-400); Red Blood Cell Count 5.43 X10^6/uL (4.0-5.2); Red Cell Distribution Width 17.6 % (11.6-14.8)
[2018-03-22] MEDS: HYDROMORPHONE 1 MG INJ IV ×3 (12:45→14:50)
[2018-03-22] MEDS: ONDANSETRON 4 MG/2 ML INJ IV (12:45)
[2018-03-22 12:49] LABS: Add Manual Diff / Slide Review YES
[2018-03-22 13:19] LABS: Alanine Aminotransferase 24 IU/L (9-52); Albumin 3.6 g/dL (3.5-5.0); Albumin Globulin Ratio 1.2 (1.0-2.8); Alkaline Phosphatase 105 U/L (38-126); Aspartate Aminotransferase 28 IU/L (14-36); BUN Creatinine Ratio 14.3 (6-22); Bilirubin Total 1.1 mg/dL (0.2-1.3); Blood Urea Nitrogen 10 mg/dL (7-17); Calcium 9.1 mg/dL (8.4-10.2); Carbon Dioxide 32 mmol/L (22-32); Chloride 102 mmol/L (98-107); Estimated Glomerular Filt Rate > 60.0 mL/min (>60); Globulin 3.1 g/dL (1.7-4.1); Glucose 144 mg/dL (80-110); HEMOLYSIS < 15 (0-50); Lactate (Lactic Acid) 2.4 mmol/L (0.7-2.1); Lipase 20 U/L (23-300); Potassium 3.6 mmol/L (3.4-5.1); Sodium 144 mmol/L (137-145); Total Protein 6.7 g/dL (6.3-8.2)
[2018-03-22] MEDS: PIPERACILLIN-TAZO 3.375 GM/50 ML FROZ.PIGGY IV ×2 (14:00→18:51)
[2018-03-22 14:13] LABS: Procalcitonin 0.38 ng/mL (<0.5)
[2018-03-22 14:33] LABS: Neutrophils Absolute Manual 21450 /uL (3000-5900); RBC Morphology Normal Morphology; Total Cells Counted 100
[2018-03-22] MEDS: LACTATED RINGERS 1,000 ML 1000 ML IV ×2 (14:51→15:50)
[2018-03-22 14:56] LABS: Bacteria Urine None Seen; RBC Urine None Seen (0-5/HPF); WBC Urine None Seen (0-5/HPF)
[2018-03-22 14:58] LABS: Appearance Urine UA CLEAR; Bilirubin Urine UA NEGATIVE (NEGATIVE); Color Urine UA YELLOW; Glucose Urine UA NEGATIVE (Normal); Ketones Urine UA NEGATIVE (NEGATIVE); Leukocyte Esterase Urine UA NEGATIVE (NEGATIVE); Nitrite Urine UA Negative (Negative); Occult Blood Urine UA TRACE-INTACT (Negative); Protein Urine UA NEGATIVE (Negative); Specific Gravity Urine UA 1.015 (1.000-1.035); Urobilinogen Urine UA 0.2 E.U./dL (0.2)
[2018-03-22 15:07] LABS: Culture Indicated Urine Cult Not Indicated; Hyaline Casts Urine 0-1/LPF; Mucus Urine 2+ (Negative)
--- NOTE | 2018-03-22 15:37 | PC.NURSE ---
#18 [place] NGT placed right nare w/ + gastric output as well as + placement via auscultation.
--- NOTE | 2018-03-22 15:38 | ED_ITS ---
HPI - Abdominal Pain <PAULO Plunkett - Last Filed: 03/22/18 21:12> General Chief Complaint: Abdominal Pain Stated Complaint: abd pain Time Seen by Provider: 03/22/18 12:21 Source: patient and EMS Mode of arrival: EMS Limitations: no limitations History of Present Illness HPI narrative: 72-year-old female with history of small-bowel obstruction and hemicolectomy everyday smoker here for complaint of pain to her abdomen mostly in the right side that started earlier this morning. She denies any trauma to the area. She has positive nausea vomiting. Last bowel movement was yesterday and was unremarkable. She denies any urinary symptoms. No known fever. Worsening pain with palpation to that area. She denies any flank pain. Related Data Home Medications Medication Instructions Recorded Confirmed aspirin [Aspir-81] 1 tab PO DAILY 11/15/17 02/25/18 multivitamin 1 tab PO DAILY 11/15/17 02/25/18 omega 5-nkw-vmr-fish oil [[place]-3] 1 cap PO DAILY 11/15/17 02/25/18 Calcium 1 tab PO DAILY 12/24/17 02/25/18 latanoprost 1 drp OPHTHALMIC (EYE) DIRECTED 12/24/17 02/25/18 losartan-hydrochlorothiazide 1 tab PO DAILY 12/24/17 02/25/18 Previous Rx's Medication Instructions Recorded ondansetron 4 mg disintegrating 4 mg PO Q6-8H PRN #10 tab MDD 6 01/01/18 tablet ondansetron 4 mg disintegrating 4 mg PO Q6H PRN #20 tab MDD 6 01/01/18 tablet tramadol 37.5 mg-acetaminophen 325 1 tab PO Q4H PRN #30 tab MDD 6 01/01/18 mg tablet Allergies Allergy/AdvReac Type Severity Reaction Status Date / Time lisinopril Allergy Severe SWELLING Verified 01/24/18 11:13 LIPS, TONGUE Review of Systems <PAULO Plunkett - Last Filed: 03/22/18 21:12> Constitutional Denies chills, Denies fever(s), Denies lethargy and Denies weakness Eyes Denies change in vision, Denies eye discharge, Denies irritation and Denies loss of vision ENT Ears, Nose, Mouth, and Throat: Denies change in voice, Denies neck pain and Denies sore throat Cardiovascular Denies chest pain, Denies irregular heart rhythm, Denies lightheadedness, Denies palpitations, Denies dyspnea, Denies dyspnea on exertion and Denies orthopnea Respiratory Denies cough, Denies dyspnea, Denies dyspnea on exertion and Denies wheezing Gastrointestinal Gastrointestinal: Reports abdominal pain and Reports nausea Genitourinary Denies hematuria, Denies flank pain, Denies urinary incontinence and Denies urinary urgency Musculoskeletal Denies neck pain Integumentary/Breasts Denies pruritus, Denies erythema, Denies rash and Denies wounds Neurologic Denies confusion, Denies loss of vision and Denies weakness Psychiatric Denies anxiety, Denies confusion, Denies depression, Denies homicidal ideation and Denies suicidal ideation Endocrine Denies palpitations Hematologic/Lymphatic Denies easy bruising Allergic/Immunologic Denies wheezing Exam <PAULO Plunkett - Last Filed: 03/22/18 21:12> Initial Vital Signs Initial Vital Signs: Vital Signs Temperature 97.9 F 03/22/18 12:22 Pulse Rate 104 H 03/22/18 12:22 Respiratory Rate 30 H 03/22/18 12:22 Blood Pressure 157/95 H 03/22/18 12:22 Pulse Oximetry 94 03/22/18 12:22 Const General: cooperative and well developed Nutritional Appearance: well nourished Orientation: alert, awake, oriented x3 and not confused HENMT Mouth: oral mucosae normal and moist mucous membranes Eyes Conjunctivae: conjunctivae normal Sclera: sclerae normal Pupils: PERRL EOM: EOM intact bilaterally Resp Effort & Inspection: normal respiratory effort, able to speak in complete sentences, no respiratory distress and no use of accessory muscles Auscultation: clear to auscultation bilaterally, no rales, no rhonchi and no wheezes Cardio Rate: regular rate Rhythm: regular rhythm Heart Sounds: no click, no gallops, no murmurs and no rubs Pulses: normal peripheral pulses GI Inspection: non-distended Palpation: no hepatosplenomegaly, guarding, No pulsatile mass and tender Other: Tenderness to right lower quadrant and right upper quadrant on palpation. Positive guarding. Skin General: no rashes or lesions noted, No jaundice and No petechiae Neuro General: alert, oriented x3, gait normal and no focal motor deficits Speech: speech normal <Carole Palomo DO - Last Filed: 03/23/18 08:08> Initial Vital Signs Initial Vital Signs: Vital Signs Temperature 97.9 F 03/22/18 12:22 Pulse Rate 104 H 03/22/18 12:22 Respiratory Rate 30 H 03/22/18 12:22 Blood Pressure 157/95 H 03/22/18 12:22 Pulse Oximetry 94 03/22/18 12:22 Const General: cooperative and in distress (In pain) Chest Chest: normal inspection of the chest Resp Effort & Inspection: normal respiratory effort and able to speak in complete sentences Cardio Rate: tachycardic Rhythm: regular rhythm GI Palpation: firm, guarding and tender Course <PAULO Plunkett - Last Filed: 03/22/18 21:12> Orders Ordered: ED Orders 03/24/18 08:00 Consult to PICC Line RN Routine Piperacillin/Tazobactam/Dextrose (Zosyn) 3.375 gm in 50 mls @ 100 mls/hr IV Q6HR [facility] Last Admin: 03/23/18 05:38 Dose: 100 mls/hr Infusion: 03/23/18 02:38 Dose: 0 mls/hr Admin: 03/23/18 00:42 Dose: 100 mls/hr FENT 2MCG/BUPIV 0.125% EPI (Uuhvtxtp-Qsqir-Ld 2 Mcg-0.125%) 2 mcg in 100 mls @ 5 mls/hr EPIDURAL CONT [facility] Last Admin: 03/22/18 22:11 Dose: 5 mls/hr Lactated Ringer's (Lactated Ringers) 1,000 mls @ 150 mls/hr IV CONT [facility] Last Admin: 03/23/18 05:39 Dose: 150 mls/hr Infusion: 03/23/18 05:11 Dose: 150 mls/hr Admin: 03/22/18 22:30 Dose: 150 mls/hr Ondansetron HCl (Zofran) 4 mg IV Q6H PRN PRN Reason: Nausea And Vomiting Discontinued Medications Fentanyl (Sublimaze) 25 mcg IV Q5MIN PRN PRN Reason: Pain, Mild (1-3) Hydromorphone HCl (Dilaudid) 1 mg IV NOW ONE Stop: 03/22/18 12:22 Last Admin: 03/22/18 12:45 Dose: 1 mg Hydromorphone HCl (Dilaudid) 1 mg IV NOW ONE Stop: 03/22/18 13:30 Last Admin: 03/22/18 13:30 Dose: 1 mg Hydromorphone HCl (Dilaudid) 1 mg IV NOW ONE Stop: 03/22/18 14:46 Last Admin: 03/22/18 14:50 Dose: 1 mg Hydromorphone HCl (Dilaudid) 0.5 mg IV NOW ONE Stop: 03/22/18 15:49 Last Admin: 03/22/18 15:50 Dose: 0.5 mg Hydromorphone HCl (Dilaudid) 0.25 mg IV Q5MIN PRN PRN Reason: Pain, Mild (1-3) Sodium Chloride (Normal Saline 0.9%) 1,000 mls @ 1,000 mls/hr IV BOLUS ONE Stop: 03/22/18 13:20 Last Infusion: 03/22/18 14:05 Dose: 0 mls/hr Admin: 03/22/18 12:44 Dose: 1,000 mls/hr Lactated Ringer's (Lactated Ringers) 1,000 mls @ 1,000 mls/hr IV BOLUS ONE Stop: 03/22/18 14:30 Last Infusion: 03/22/18 15:53 Dose: 0 mls/hr Admin: 03/22/18 14:51 Dose: 1,000 mls/hr Piperacillin/Tazobactam/Dextrose (Zosyn) 3.375 gm in 50 mls @ 100 mls/hr IV NOW ONE Stop: 03/22/18 14:01 Last Infusion: 03/22/18 19:25 Dose: 0 mls/hr Admin: 03/22/18 18:51 Dose: 100 mls/hr Infusion: 03/22/18 14:59 Dose: 0 mls/hr Admin: 03/22/18 14:00 Dose: 100 mls/hr Lactated Ringer's (Lactated Ringers) 1,000 mls @ 150 mls/hr IV CONT DOMINIQUE Last Admin: 03/22/18 16:16 Dose: Lactated Ringer's (Lactated Ringers) 1,000 mls @ 1,000 mls/hr IV BOLUS ONE Stop: 03/22/18 16:37 Last Infusion: 03/22/18 16:15 Dose: 1,000 mls/hr Admin: 03/22/18 15:50 Dose: 1,000 mls/hr Lactated Ringer's (Lactated Ringers) 1,000 mls @ 42 mls/hr IV CONT DOMINIQUE Last Infusion: 03/22/18 21:25 Dose: 0 mls/hr Admin: 03/22/18 17:00 Dose: 42 mls/hr Infusion: 03/22/18 17:00 Dose: 42 mls/hr Admin: 03/22/18 16:15 Dose: 42 mls/hr Ondansetron HCl (Zofran) 4 mg IV NOW ONE Stop: 03/22/18 12:22 Last Admin: 03/22/18 12:45 Dose: 4 mg Ondansetron HCl (Zofran) 4 mg IV NOW PRN PRN Reason: Nausea And Vomiting Pantoprazole Sodium (Protonix) 40 mg IV NOW ONE Stop: 03/22/18 16:04 Last Admin: 03/22/18 16:15 Dose: 40 mg Vital Signs - 8 hr 03/23/18 00:07 03/23/18 01:02 03/23/18 02:00 Temperature 98.0 F Pulse Rate 107 H 100 H 100 H Respiratory Rate 13 16 13 Blood Pressure 94/56 L 88/67 L 83/57 L Pulse Oximetry 98 98 100 03/23/18 02:01 03/23/18 02:10 03/23/18 03:00 Temperature Pulse Rate 102 H 98 H Respiratory Rate 15 Blood Pressure 88/62 L 85/61 L Pulse Oximetry 98 98 03/23/18 04:00 03/23/18 04:23 03/23/18 05:02 Temperature 97.2 F L Pulse Rate 100 H 96 H Respiratory Rate 19 20 Blood Pressure 91/68 91/66 Pulse Oximetry 97 98 99 03/23/18 06:02 03/23/18 07:19 Temperature 99.1 F Pulse Rate 101 H 94 H Respiratory Rate 18 16 Blood Pressure 90/65 91/57 L Pulse Oximetry 97 97 <Carole Palomo, - Last Filed: 03/23/18 08:08> Orders Ordered: ED Orders 03/24/18 08:00 Consult to PICC Line RN Routine Piperacillin/Tazobactam/Dextrose (Zosyn) 3.375 gm in 50 mls @ 100 mls/hr IV Q6HR [facility] Last Admin: 03/23/18 05:38 Dose: 100 mls/hr Infusion: 03/23/18 02:38 Dose: 0 mls/hr Admin: 03/23/18 00:42 Dose: 100 mls/hr FENT 2MCG/BUPIV 0.125% EPI (Ycenmobt-[place]apt[place]-Ni 2 Mcg-0.125%) 2 mcg in 100 mls @ 5 mls/hr EPIDURAL CONT [facility] Last Admin: 03/22/18 22:11 Dose: 5 mls/hr Lactated Ringer's (Lactated Ringers) 1,000 mls @ 150 mls/hr IV CONT [facility] Last Admin: 03/23/18 05:39 Dose: 150 mls/hr Infusion: 03/23/18 05:11 Dose: 150 mls/hr Admin: 03/22/18 22:30 Dose: 150 mls/hr Ondansetron HCl (Zofran) 4 mg IV Q6H PRN PRN Reason: Nausea And Vomiting Discontinued Medications Fentanyl (Sublimaze) 25 mcg IV Q5MIN PRN PRN Reason: Pain, Mild (1-3) Hydromorphone HCl (Dilaudid) 1 mg IV NOW ONE Stop: 03/22/18 12:22 Last Admin: 03/22/18 12:45 Dose: 1 mg Hydromorphone HCl (Dilaudid) 1 mg IV NOW ONE Stop: 03/22/18 13:30 Last Admin: 03/22/18 13:30 Dose: 1 mg Hydromorphone HCl (Dilaudid) 1 mg IV NOW ONE Stop: 03/22/18 14:46 Last Admin: 03/22/18 14:50 Dose: 1 mg Hydromorphone HCl (Dilaudid) 0.5 mg IV NOW ONE Stop: 03/22/18 15:49 Last Admin: 03/22/18 15:50 Dose: 0.5 mg Hydromorphone HCl (Dilaudid) 0.25 mg IV Q5MIN PRN PRN Reason: Pain, Mild (1-3) Sodium Chloride (Normal Saline 0.9%) 1,000 mls @ 1,000 mls/hr IV BOLUS ONE Stop: 03/22/18 13:20 Last Infusion: 03/22/18 14:05 Dose: 0 mls/hr Admin: 03/22/18 12:44 Dose: 1,000 mls/hr Lactated Ringer's (Lactated Ringers) 1,000 mls @ 1,000 mls/hr IV BOLUS ONE Stop: 03/22/18 14:30 Last Infusion: 03/22/18 15:53 Dose: 0 mls/hr Admin: 03/22/18 14:51 Dose: 1,000 mls/hr Piperacillin/Tazobactam/Dextrose (Zosyn) 3.375 gm in 50 mls @ 100 mls/hr IV NOW ONE Stop: 03/22/18 14:01 Last Infusion: 03/22/18 19:25 Dose: 0 mls/hr Admin: 03/22/18 18:51 Dose: 100 mls/hr Infusion: 03/22/18 14:59 Dose: 0 mls/hr Admin: 03/22/18 14:00 Dose: 100 mls/hr Lactated Ringer's (Lactated Ringers) 1,000 mls @ 150 mls/hr IV CONT [facility] Last Admin: 03/22/18 16:16 Dose: Lactated Ringer's (Lactated Ringers) 1,000 mls @ 1,000 mls/hr IV BOLUS ONE Stop: 03/22/18 16:37 Last Infusion: 03/22/18 16:15 Dose: 1,000 mls/hr Admin: 03/22/18 15:50 Dose: 1,000 mls/hr Lactated Ringer's (Lactated Ringers) 1,000 mls @ 42 mls/hr IV CONT [facility] Last Infusion: 03/22/18 21:25 Dose: 0 mls/hr Admin: 03/22/18 17:00 Dose: 42 mls/hr Infusion: 03/22/18 17:00 Dose: 42 mls/hr Admin: 03/22/18 16:15 Dose: 42 mls/hr Ondansetron HCl (Zofran) 4 mg IV NOW ONE Stop: 03/22/18 12:22 Last Admin: 03/22/18 12:45 Dose: 4 mg Ondansetron HCl (Zofran) 4 mg IV NOW PRN PRN Reason: Nausea And Vomiting Pantoprazole Sodium (Protonix) 40 mg IV NOW ONE Stop: 03/22/18 16:04 Last Admin: 03/22/18 16:15 Dose: 40 mg Vital Signs - 8 hr 03/23/18 00:07 03/23/18 01:02 03/23/18 02:00 Temperature 98.0 F Pulse Rate 107 H 100 H 100 H Respiratory Rate 13 16 13 Blood Pressure 94/56 L 88/67 L 83/57 L Pulse Oximetry 98 98 100 03/23/18 02:01 03/23/18 02:10 03/23/18 03:00 Temperature Pulse Rate 102 H 98 H Respiratory Rate 15 Blood Pressure 88/62 L 85/61 L Pulse Oximetry 98 98 03/23/18 04:00 03/23/18 04:23 03/23/18 05:02 Temperature 97.2 F L Pulse Rate 100 H 96 H Respiratory Rate 19 20 Blood Pressure 91/68 91/66 Pulse Oximetry 97 98 99 03/23/18 06:02 03/23/18 07:19 Temperature 99.1 F Pulse Rate 101 H 94 H Respiratory Rate 18 16 Blood Pressure 90/65 91/57 L Pulse Oximetry 97 97 MDM - Abdominal Pain <PAULO Plunkett - Last Filed: 03/22/18 21:12> Lab Data Result diagrams: 03/22/18 22:00 03/22/18 22:00 Lab Results 03/22/18 03/22/18 03/22/18 Range/Units 12:30 13:00 13:00 WBC 33.0 H* (4.5-11.0) X10^3/uL RBC 5.43 H (4.0-5.2) X10^6/uL Hgb 15.7 (12.0-16.0) g/dL Hct 47.4 H (36-46) % MCV 87.2 (80-100) fL MCH 28.9 (26-34) PG MCHC 33.2 (30-36) % RDW 17.6 H (11.6-14.8) % Plt Count 302 (150-400) X10^3/uL Neut % (Auto) Not Reportable Lymph % (Auto) Not Reportable [place] % (Auto) Not Reportable Eos % (Auto) Not Reportable Baso % (Auto) Not Reportable Neut # (Auto) (5113-2025) /uL Total Counted 100 Seg Neutrophils % 56.0 (38-70) % Band Neutrophils % 9.0 H (3-7) % Lymphocytes % (Manual) 35.0 (25-45) % Neutrophils # (Manual) 45997 H (0998-7384) /uL RBC Morphology Normal morphology Sodium 144 (137-145) mmol/L Potassium 3.6 (3.4-5.1) mmol/L Chloride 102 (98-107) mmol/L Carbon Dioxide 32 (22-32) mmol/L BUN 10 (7-17) mg/dL Creatinine 0.70 (0.52-1.04) mg/dL Estimated GFR > 60.0 (>60) mL/min BUN/Creatinine Ratio 14.3 (6-22) Glucose 144 H (80-110) mg/dL Lactate (0.7-2.1) mmol/L Calcium 9.1 (8.4-10.2) mg/dL Total Bilirubin 1.1 (0.2-1.3) mg/dL AST 28 (14-36) IU/L ALT 24 (9-52) IU/L Alkaline Phosphatase 105 (38-126) U/L Total Protein 6.7 (6.3-8.2) g/dL Albumin 3.6 (3.5-5.0) g/dL Globulin 3.1 (1.7-4.1) g/dL Albumin/Globulin Ratio 1.2 (1.0-2.8) Lipase 20 L (23-300) U/L Procalcitonin 0.38 (<0.5) ng/mL Urine Color Urine Appearance Urine pH (4.5-8.0) Ur Specific [place] (1.000-1.035) Urine Protein (Negative) Urine Glucose (UA) (Normal) g/dL Urine Ketones (NEGATIVE) Urine Occult Blood (Negative) Urine Nitrate (Negative) Urine Bilirubin (NEGATIVE) Urine Urobilinogen (0.2) E.U./dL Ur Leukocyte Esterase (NEGATIVE) Urine RBC (0-5/HPF) Urine WBC (0-5/HPF) Urine Bacteria (None) Hyaline Casts (None) Urine Mucus (Negative) Ur Culture Indicated? Micro UA Comment Nasal Screen MRSA (PCR) (Negative) 03/22/18 03/22/18 03/22/18 Range/Units 13:00 14:40 22:00 WBC 20.1 H (4.5-11.0) X10^3/uL RBC 5.11 (4.0-5.2) X10^6/uL Hgb 14.7 (12.0-16.0) g/dL Hct 44.8 (36-46) % MCV 87.8 (80-100) fL MCH 28.8 (26-34) PG MCHC 32.8 (30-36) % RDW 17.6 H (11.6-14.8) % Plt Count 250 (150-400) X10^3/uL Neut % (Auto) 56.5 Lymph % (Auto) 41.6 H [place] % (Auto) 1.8 L Eos % (Auto) 0.0 L Baso % (Auto) 0.1 Neut # (Auto) 58500 H (9946-3726) /uL Total Counted Seg Neutrophils % (38-70) % Band Neutrophils % (3-7) % Lymphocytes % (Manual) (25-45) % Neutrophils # (Manual) (3514-5773) /uL RBC Morphology Sodium (137-145) mmol/L Potassium (3.4-5.1) mmol/L Chloride (98-107) mmol/L Carbon Dioxide (22-32) mmol/L BUN (7-17) mg/dL Creatinine (0.52-1.04) mg/dL Estimated GFR (>60) mL/min BUN/Creatinine Ratio (6-22) Glucose (80-110) mg/dL Lactate 2.4 H (0.7-2.1) mmol/L Calcium (8.4-10.2) mg/dL Total Bilirubin (0.2-1.3) mg/dL AST (14-36) IU/L ALT (9-52) IU/L Alkaline Phosphatase (38-126) U/L Total Protein (6.3-8.2) g/dL Albumin (3.5-5.0) g/dL Globulin (1.7-4.1) g/dL Albumin/Globulin Ratio (1.0-2.8) Lipase (23-300) U/L Procalcitonin (<0.5) ng/mL Urine Color Yellow Urine Appearance Clear Urine pH 5.0 (4.5-8.0) Ur Specific [place] 1.015 (1.000-1.035) Urine Protein Negative (Negative) Urine Glucose (UA) Negative (Normal) g/dL Urine Ketones Negative (NEGATIVE) Urine Occult Blood Trace-intact (Negative) Urine Nitrate Negative (Negative) Urine Bilirubin Negative (NEGATIVE) Urine Urobilinogen 0.2 (0.2) E.U./dL Ur Leukocyte Esterase Negative (NEGATIVE) Urine RBC None seen (0-5/HPF) Urine WBC None seen (0-5/HPF) Urine Bacteria None seen (None) Hyaline Casts 0-1/lpf (None) Urine Mucus 2+ H (Negative) Ur Culture Indicated? Cult not indicated Micro UA Comment Not Reportable Nasal Screen MRSA (PCR) (Negative) 03/22/18 03/22/18 03/22/18 Range/Units 22:00 22:00 22:00 WBC (4.5-11.0) X10^3/uL RBC (4.0-5.2) X10^6/uL Hgb (12.0-16.0) g/dL Hct (36-46) % MCV (80-100) fL MCH (26-34) PG MCHC (30-36) % RDW (11.6-14.8) % Plt Count (150-400) X10^3/uL Neut % (Auto) Lymph % (Auto) [place] % (Auto) Eos % (Auto) Baso % (Auto) Neut # (Auto) (8470-0670) /uL Total Counted Seg Neutrophils % (38-70) % Band Neutrophils % (3-7) % Lymphocytes % (Manual) (25-45) % Neutrophils # (Manual) (8333-7962) /uL RBC Morphology Sodium 139 (137-145) mmol/L Potassium 4.0 (3.4-5.1) mmol/L Chloride 106 (98-107) mmol/L Carbon Dioxide 24 (22-32) mmol/L BUN 11 (7-17) mg/dL Creatinine 0.70 (0.52-1.04) mg/dL Estimated GFR > 60.0 (>60) mL/min BUN/Creatinine Ratio 15.7 (6-22) Glucose 123 H (80-110) mg/dL Lactate 3.7 H (0.7-2.1) mmol/L Calcium 7.8 L (8.4-10.2) mg/dL Total Bilirubin 1.0 (0.2-1.3) mg/dL AST 34 (14-36) IU/L ALT 24 (9-52) IU/L Alkaline Phosphatase 55 D (38-126) U/L Total Protein 4.7 L (6.3-8.2) g/dL Albumin 2.3 L (3.5-5.0) g/dL Globulin 2.4 (1.7-4.1) g/dL Albumin/Globulin Ratio 1.0 (1.0-2.8) Lipase (23-300) U/L Procalcitonin (<0.5) ng/mL Urine Color Urine Appearance Urine pH (4.5-8.0) Ur Specific [place] (1.000-1.035) Urine Protein (Negative) Urine Glucose (UA) (Normal) g/dL Urine Ketones (NEGATIVE) Urine Occult Blood (Negative) Urine Nitrate (Negative) Urine Bilirubin (NEGATIVE) Urine Urobilinogen (0.2) E.U./dL Ur Leukocyte Esterase (NEGATIVE) Urine RBC (0-5/HPF) Urine WBC (0-5/HPF) Urine Bacteria (None) Hyaline Casts (None) Urine Mucus (Negative) Ur Culture Indicated? Micro UA Comment Nasal Screen MRSA (PCR) Negative for mrsa (Negative) Point of care testing: Point of Care Testing Glucose POC 117 MDM Narrative Medical decision making narrative: CBC was obtained and shows elevated white count of 33. Chem panel was obtained was unremarkable. Lactate resolved at 2.4. Blood cultures are obtained and are pending. Urinalysis was negative. CT of the abdomen was obtained and shows inflammation along the sigmoid and descending colon. There is also free air in the abdomen. Discussed case with Dr. Kaila white who came to evaluate patient. Patient is under the care of surgery and is admitted via surgery. <Carole Palomo, DO - Last Filed: 03/23/18 08:08> Lab Data Attestation: I reviewed the patient's lab results. Lab Results 03/22/18 03/22/18 03/22/18 Range/Units 12:30 13:00 13:00 WBC 33.0 H* (4.5-11.0) X10^3/uL RBC 5.43 H (4.0-5.2) X10^6/uL Hgb 15.7 (12.0-16.0) g/dL Hct 47.4 H (36-46) % MCV 87.2 (80-100) fL MCH 28.9 (26-34) PG MCHC 33.2 (30-36) % RDW 17.6 H (11.6-14.8) % Plt Count 302 (150-400) X10^3/uL Neut % (Auto) Not Reportable Lymph % (Auto) Not Reportable [place] % (Auto) Not Reportable Eos % (Auto) Not Reportable Baso % (Auto) Not Reportable Neut # (Auto) (4399-4551) /uL Total Counted 100 Seg Neutrophils % 56.0 (38-70) % Band Neutrophils % 9.0 H (3-7) % Lymphocytes % (Manual) 35.0 (25-45) % Neutrophils # (Manual) 19018 H (2773-1315) /uL RBC Morphology Normal morphology Sodium 144 (137-145) mmol/L Potassium 3.6 (3.4-5.1) mmol/L Chloride 102 (98-107) mmol/L Carbon Dioxide 32 (22-32) mmol/L BUN 10 (7-17) mg/dL Creatinine 0.70 (0.52-1.04) mg/dL Estimated GFR > 60.0 (>60) mL/min BUN/Creatinine Ratio 14.3 (6-22) Glucose 144 H (80-110) mg/dL Lactate (0.7-2.1) mmol/L Calcium 9.1 (8.4-10.2) mg/dL Total Bilirubin 1.1 (0.2-1.3) mg/dL AST 28 (14-36) IU/L ALT 24 (9-52) IU/L Alkaline Phosphatase 105 (38-126) U/L Total Protein 6.7 (6.3-8.2) g/dL Albumin 3.6 (3.5-5.0) g/dL Globulin 3.1 (1.7-4.1) g/dL Albumin/Globulin Ratio 1.2 (1.0-2.8) Lipase 20 L (23-300) U/L Procalcitonin 0.38 (<0.5) ng/mL Urine Color Urine Appearance Urine pH (4.5-8.0) Ur Specific [place] (1.000-1.035) Urine Protein (Negative) Urine Glucose (UA) (Normal) g/dL Urine Ketones (NEGATIVE) Urine Occult Blood (Negative) Urine Nitrate (Negative) Urine Bilirubin (NEGATIVE) Urine Urobilinogen (0.2) E.U./dL Ur Leukocyte Esterase (NEGATIVE) Urine RBC (0-5/HPF) Urine WBC (0-5/HPF) Urine Bacteria (None) Hyaline Casts (None) Urine Mucus (Negative) Ur Culture Indicated? Micro UA Comment Nasal Screen MRSA (PCR) (Negative) 03/22/18 03/22/18 03/22/18 Range/Units 13:00 14:40 22:00 WBC 20.1 H (4.5-11.0) X10^3/uL RBC 5.11 (4.0-5.2) X10^6/uL Hgb 14.7 (12.0-16.0) g/dL Hct 44.8 (36-46) % MCV 87.8 (80-100) fL MCH 28.8 (26-34) PG MCHC 32.8 (30-36) % RDW 17.6 H (11.6-14.8) % Plt Count 250 (150-400) X10^3/uL Neut % (Auto) 56.5 Lymph % (Auto) 41.6 H [place] % (Auto) 1.8 L Eos % (Auto) 0.0 L Baso % (Auto) 0.1 Neut # (Auto) 29468 H (3284-0135) /uL Total Counted Seg Neutrophils % (38-70) % Band Neutrophils % (3-7) % Lymphocytes % (Manual) (25-45) % Neutrophils # (Manual) (8142-6222) /uL RBC Morphology Sodium (137-145) mmol/L Potassium (3.4-5.1) mmol/L Chloride (98-107) mmol/L Carbon Dioxide (22-32) mmol/L BUN (7-17) mg/dL Creatinine (0.52-1.04) mg/dL Estimated GFR (>60) mL/min BUN/Creatinine Ratio (6-22) Glucose (80-110) mg/dL Lactate 2.4 H (0.7-2.1) mmol/L Calcium (8.4-10.2) mg/dL Total Bilirubin (0.2-1.3) mg/dL AST (14-36) IU/L ALT (9-52) IU/L Alkaline Phosphatase (38-126) U/L Total Protein (6.3-8.2) g/dL Albumin (3.5-5.0) g/dL Globulin (1.7-4.1) g/dL Albumin/Globulin Ratio (1.0-2.8) Lipase (23-300) U/L Procalcitonin (<0.5) ng/mL Urine Color Yellow Urine Appearance Clear Urine pH 5.0 (4.5-8.0) Ur Specific [place] 1.015 (1.000-1.035) Urine Protein Negative (Negative) Urine Glucose (UA) Negative (Normal) g/dL Urine Ketones Negative (NEGATIVE) Urine Occult Blood Trace-intact (Negative) Urine Nitrate Negative (Negative) Urine Bilirubin Negative (NEGATIVE) Urine Urobilinogen 0.2 (0.2) E.U./dL Ur Leukocyte Esterase Negative (NEGATIVE) Urine RBC None seen (0-5/HPF) Urine WBC None seen (0-5/HPF) Urine Bacteria None seen (None) Hyaline Casts 0-1/lpf (None) Urine Mucus 2+ H (Negative) Ur Culture Indicated? Cult not indicated Micro UA Comment Not Reportable Nasal Screen MRSA (PCR) (Negative) 03/22/18 03/22/18 03/22/18 Range/Units 22:00 22:00 22:00 WBC (4.5-11.0) X10^3/uL RBC (4.0-5.2) X10^6/uL Hgb (12.0-16.0) g/dL Hct (36-46) % MCV (80-100) fL MCH (26-34) PG MCHC (30-36) % RDW (11.6-14.8) % Plt Count (150-400) X10^3/uL Neut % (Auto) Lymph % (Auto) [place] % (Auto) Eos % (Auto) Baso % (Auto) Neut # (Auto) (3103-9292) /uL Total Counted Seg Neutrophils % (38-70) % Band Neutrophils % (3-7) % Lymphocytes % (Manual) (25-45) % Neutrophils # (Manual) (1356-9045) /uL RBC Morphology Sodium 139 (137-145) mmol/L Potassium 4.0 (3.4-5.1) mmol/L Chloride 106 (98-107) mmol/L Carbon Dioxide 24 (22-32) mmol/L BUN 11 (7-17) mg/dL Creatinine 0.70 (0.52-1.04) mg/dL Estimated GFR > 60.0 (>60) mL/min BUN/Creatinine Ratio 15.7 (6-22) Glucose 123 H (80-110) mg/dL Lactate 3.7 H (0.7-2.1) mmol/L Calcium 7.8 L (8.4-10.2) mg/dL Total Bilirubin 1.0 (0.2-1.3) mg/dL AST 34 (14-36) IU/L ALT 24 (9-52) IU/L Alkaline Phosphatase 55 D (38-126) U/L Total Protein 4.7 L (6.3-8.2) g/dL Albumin 2.3 L (3.5-5.0) g/dL Globulin 2.4 (1.7-4.1) g/dL Albumin/Globulin Ratio 1.0 (1.0-2.8) Lipase (23-300) U/L Procalcitonin (<0.5) ng/mL Urine Color Urine Appearance Urine pH (4.5-8.0) Ur Specific [place] (1.000-1.035) Urine Protein (Negative) Urine Glucose (UA) (Normal) g/dL Urine Ketones (NEGATIVE) Urine Occult Blood (Negative) Urine Nitrate (Negative) Urine Bilirubin (NEGATIVE) Urine Urobilinogen (0.2) E.U./dL Ur Leukocyte Esterase (NEGATIVE) Urine RBC (0-5/HPF) Urine WBC (0-5/HPF) Urine Bacteria (None) Hyaline Casts (None) Urine Mucus (Negative) Ur Culture Indicated? Micro UA Comment Nasal Screen MRSA (PCR) Negative for mrsa (Negative) Point of care testing: Point of Care Testing Glucose POC [address] scan - abdomen: Radiologist's impression: PROCEDURE: CT ABDOMEN PELVIS W CON INDICATIONS: Right upper and lower quadrant pain TECHNIQUE: After the administration of intravenous contrast, 5 mm thick sections acquired from the diaphragm to the symphysis. 5 mm coronal and sagittal reformats were acquired. For radiation dose reduction, the following was used: automated exposure control, adjustment of mA and/or kV according to patient size. COMPARISON: None. FINDINGS: Image quality: Excellent. ABDOMEN: Lung bases: Bibasilar scarring/atelectasis. Heart size is normal. Solid organs: Liver is normal in size and enhancement. Gallbladder unremarkable. Biliary system is non dilated. Pancreas enhances normally. Spleen is normal in size and enhancement. No adrenal nodules. Kidneys demonstrate normal size and enhancement, without hydronephrosis. Peritoneum and bowel: There is intraperitoneal free air. There is also scattered mild ascites. There is long segment colonic wall thickening and mucosal enhancement with adjacent stranding and fluid suggestive of colitis. The appendix is not well- seen. No discrete abscess is identified. Rectum is decompressed otherwise unremarkable. Scattered colonic diverticula are also noted although no definite focal diverticulitis. Postsurgical changes in the bowel, and probable anastomosis seen on image 48 series 2 Nodes and vessels: No retroperitoneal or mesenteric adenopathy by size criteria. Aorta and inferior vena cava are normal in size. Miscellaneous: No ventral hernias. PELVIS: Genitourinary: Bladder wall thickness is normal. Miscellaneous: No inguinal hernias or adenopathy. Bones: No suspicious bony lesions. No vertebral body compression fractures. IMPRESSION: Intraperitoneal free air. Long segment colonic wall thickening and mucosal enhancement primarily involving the sigmoid and descending colon suggestive of colitis, likely infectious or inflammatory. Mild ascites. No discrete abscess seen. Of note, the appendix is not visualized therefore please correlate clinically to exclude acute appendicitis. Surgical consultation recommended. Critical findings were immediately personally telephoned with Jones BATES in the emergency department at the time of study dictation. 1451 hrs. on 03/14/18 Dictated by: Dayron Briggs M.D. on 03/22/2018 at 14:42 MDM Narrative Medical decision making narrative: Discharge Plan Departure Patient Disposition: Admitted As Inpatient Clinical Impression: Abdominal pain Discharge Date/Time: 03/22/18 16:18 Interventions: ED Discharge Assessment Last Done: 03/22/18 16:18 Admit Date/Time: 03/22/18 16:20 Admit Provider: Senthil Bright <Carole Palomo DO - Last Filed: 03/23/18 08:08> Cosign ED Attending Cosignature Attestation: I was immediately available in the department for consultation. Documentation has been reviewed. I agree with assessment and plan.
--- NOTE | 2018-03-22 15:45 | PM.HP.1 ---
History of Present Illness Date Patient Seen: 03/22/18 Time Patient Seen: 15:45 Chief complaint: abd pain Narrative: The patient is a woman who is confused and not really able to give me an adequate history. She recognizes that she is confused and rambling when I ask her questions. According to her she developed acute abdominal pain this morning. She then began vomiting. He brought her to the emergency room and she was found to have a diffusely tender abdomen and free air on x-ray. Her past history is significant for CLL. She is not under treatment at this time as she has been asymptomatic. She has been in and out of the hospital since December. In December she had a colonoscopy and underwent a right hemicolectomy for what turned out to be a large unresectable but benign polyp in her cecum. Since then she has been in the hospital twice with symptoms suggesting a bowel obstruction. According to her yesterday she was doing fine. They 8 together and she was in no pain at all. She had a normal bowel movement according to him. This morning she developed sudden onset of abdominal pain. She has become confused during the day. She did take some Gas-X. Patient History Medical History Hypertension (Acute) Mild protein-calorie malnutrition (Acute) CLL (chronic lymphocytic leukemia) (Chronic) Erythrocytosis (Chronic) Glaucoma (Chronic) H/O: hysterectomy (Resolved) Mass of appendix (Resolved) Other bursal cyst, unspecified wrist (Resolved) Tubal ligation status (Resolved) Surgical History History of colonoscopy (Acute) Status post laparoscopic colectomy (Acute) Family & Social History Social History: household members spouse Safety & Behavioral: Feels Safe in Current Yes Environment Tobacco & Substance use: Tobacco type cigarettes Smoking Status Current every day smoker alcohol intake current alcohol intake frequency 0-2 drinks per day Substance Use Type does not use Meds Home Medications Medication Instructions Recorded Confirmed Type aspirin [Aspir-81] 1 tab PO DAILY 11/15/17 02/25/18 History multivitamin 1 tab PO DAILY 11/15/17 02/25/18 History omega 2-apt-npy-fish oil [[place]-3] 1 cap PO DAILY 11/15/17 02/25/18 History Calcium 1 tab PO DAILY 12/24/17 02/25/18 History latanoprost 1 drp OPHTHALMIC (EYE) DIRECTED 12/24/17 02/25/18 History losartan-hydrochlorothiazide 1 tab PO DAILY 12/24/17 02/25/18 History ondansetron 4 mg disintegrating 4 mg PO Q6-8H PRN #10 tab MDD 6 01/01/18 02/25/18 Rx tablet ondansetron 4 mg disintegrating 4 mg PO Q6H PRN #20 tab MDD 6 01/01/18 02/25/18 Rx tablet tramadol 37.5 mg-acetaminophen 325 1 tab PO Q4H PRN #30 tab MDD 6 01/01/18 02/25/18 Rx mg tablet Allergies Allergy/AdvReac Type Severity Reaction Status Date / Time lisinopril Allergy Severe SWELLING Verified 01/24/18 11:13 LIPS, TONGUE Review of Systems Review of Systems I really can't obtain a reliable review of systems from the patient. Please see review of systems from her most recent office visit/hospitalizations. Exam Vital Signs (past 8 hours): - 03/22/18 12:22 03/22/18 13:18 03/22/18 13:45 Temperature 97.9 F Pulse Rate 104 H 116 H 121 H Respiratory Rate 30 H 29 H 29 H Blood Pressure 157/95 H Blood Pressure [Right Arm] 143/80 H 162/89 H Pulse Oximetry 94 94 94 03/22/18 14:40 03/22/18 15:08 Temperature Pulse Rate 128 H 127 H Respiratory Rate 38 H 20 Blood Pressure Blood Pressure [Right Arm] 179/102 H 165/108 H Pulse Oximetry 96 98 Oxygen Delivery Method Room Air Oxygen Flow Rate 2 Narrative Exam Narrative: Co operative woman who seems to be alert and attentive. Her responses though are bit confused. Eyes are nonicteric. Pupils equal round reactive to light. Lungs are clear to auscultation without rales or rhonchi. Decreased breath sounds in the bases. Breathing cuts off sharply most likely from abdominal pain. Her abdomen is rigid. She has a in upper abdominal vertical midline scar and a Pfannenstiel incision. No obvious hernias. Objective Imaging CT scan - abdomen: My impression: Thickening of the probable anastomosis of small bowel to large in the right upper quadrant. Small out of free air. Possible colitis principally sigmoid versus thickening from inflammation external. Diverticulosis. Radiologist's impression: Similar to my own Labs Result Diagrams: 03/22/18 12:30 03/22/18 13:00 Labs: Laboratory Results - last 24 hr 03/22/18 03/22/18 03/22/18 12:30 13:00 13:00 WBC 33.0 H* RBC 5.43 H Hgb 15.7 Hct 47.4 H MCV 87.2 MCH 28.9 MCHC 33.2 RDW 17.6 H Plt Count 302 Neut % (Auto) Not Reportable Lymph % (Auto) Not Reportable [facility] % (Auto) Not Reportable Eos % (Auto) Not Reportable Baso % (Auto) Not Reportable Total Counted 100 Seg Neutrophils % 56.0 Band Neutrophils % 9.0 H Lymphocytes % (Manual) 35.0 Neutrophils # (Manual) 81158 H RBC Morphology Normal morphology Sodium 144 Potassium 3.6 Chloride 102 Carbon Dioxide 32 BUN 10 Creatinine 0.70 Estimated GFR > 60.0 BUN/Creatinine Ratio 14.3 Glucose 144 H Lactate Calcium 9.1 Total Bilirubin 1.1 AST 28 ALT 24 Alkaline Phosphatase 105 Total Protein 6.7 Albumin 3.6 Globulin 3.1 Albumin/Globulin Ratio 1.2 Lipase 20 L Procalcitonin 0.38 Urine Color Urine Appearance Urine pH Ur Specific [place] Urine Protein Urine Glucose (UA) Urine Ketones Urine Occult Blood Urine Nitrate Urine Bilirubin Urine Urobilinogen Ur Leukocyte Esterase Urine RBC Urine WBC Urine Bacteria Hyaline Casts Urine Mucus Ur Culture Indicated? Micro UA Comment 03/22/18 03/22/18 13:00 14:40 WBC RBC Hgb Hct MCV MCH MCHC RDW Plt Count Neut % (Auto) Lymph % (Auto) [facility] % (Auto) Eos % (Auto) Baso % (Auto) Total Counted Seg Neutrophils % Band Neutrophils % Lymphocytes % (Manual) Neutrophils # (Manual) RBC Morphology Sodium Potassium Chloride Carbon Dioxide BUN Creatinine Estimated GFR BUN/Creatinine Ratio Glucose Lactate 2.4 H Calcium Total Bilirubin AST ALT Alkaline Phosphatase Total Protein Albumin Globulin Albumin/Globulin Ratio Lipase Procalcitonin Urine Color Yellow Urine Appearance Clear Urine pH 5.0 Ur Specific [place] 1.015 Urine Protein Negative Urine Glucose (UA) Negative Urine Ketones Negative Urine Occult Blood Trace-intact Urine Nitrate Negative Urine Bilirubin Negative Urine Urobilinogen 0.2 Ur Leukocyte Esterase Negative Urine RBC None seen Urine WBC None seen Urine Bacteria None seen Hyaline Casts 0-1/lpf Urine Mucus 2+ H Ur Culture Indicated? Cult not indicated Micro UA Comment Not Reportable Assessment & Plan Plan: Assessment/Plan Narrative: Patient is woman with sudden onset of abdominal pain this morning. She appears to be septic with an elevated white blood cell count, elevated lactate, tachycardia, and tachypnea. Source relates to an intra-abdominal perforation. Site unclear at this time. She has a history of CLL as well. She is confused but I talked in her presence with her about the findings and my recommended inch sedation that she undergo exploration and treatment of what ever cause this problem. That could involve a perforated ulcer or perforated colon. It could be really any part of her intestine. Could be something to do with her anastomosis though this would be somewhat late occurring. Talked to him about the possibility of patching a gastric or duodenal ulcer, of resecting bowel and a possible ostomy. I talked to him about the possibility of renal failure respiratory failure and heart attack. I told him that she would be in the intensive care unit postoperatively and could be on a ventilator. I told him I was not certain what I was going to do because I am not sure what I am going to find. All questions were answered and he wished to proceed. She did as well. I asked that he signed the consent.
[2018-03-22] MEDS: HYDROMORPHONE 1 MG INJ 0.5 MG IV (15:50)
--- NOTE | 2018-03-22 15:53 | P.HP_ITS ---
History of Present Illness Date Patient Seen: 03/22/18 Time Patient Seen: 15:45 Chief complaint: abd pain Narrative: The patient is a woman who is confused and not really able to give me an adequate history. She recognizes that she is confused and rambling when I ask her questions. According to her she developed acute abdominal pain this morning. She then began vomiting. He brought her to the emergency room and she was found to have a diffusely tender abdomen and free air on x- ray. Her past history is significant for CLL. She is not under treatment at this time as she has been asymptomatic. She has been in and out of the hospital since December. In December she had a colonoscopy and underwent a right hemicolectomy for what turned out to be a large unresectable but benign polyp in her cecum. Since then she has been in the hospital twice with symptoms suggesting a bowel obstruction. According to her yesterday she was doing fine. They 8 together and she was in no pain at all. She had a normal bowel movement according to him. This morning she developed sudden onset of abdominal pain. She has become confused during the day. She did take some Gas- X. Patient History Medical History Hypertension (Acute) Mild protein-calorie malnutrition (Acute) CLL (chronic lymphocytic leukemia) (Chronic) Erythrocytosis (Chronic) Glaucoma (Chronic) H/O: hysterectomy (Resolved) Mass of appendix (Resolved) Other bursal cyst, unspecified wrist (Resolved) Tubal ligation status (Resolved) Surgical History History of colonoscopy (Acute) Status post laparoscopic colectomy (Acute) Family & Social History Social History: household members spouse Safety & Behavioral: Feels Safe in Current Yes Environment Tobacco & Substance use: Tobacco type cigarettes Smoking Status Current every day smoker alcohol intake current alcohol intake frequency 0-2 drinks per day Substance Use Type does not use Meds Home Medications Medication Instructions Recorded Confirmed Type aspirin [Aspir-81] 1 tab PO DAILY 11/15/17 02/25/18 History multivitamin 1 tab PO DAILY 11/15/17 02/25/18 History omega 1-ynd-bnq-fish oil [[place]-3] 1 cap PO DAILY 11/15/17 02/25/18 History Calcium 1 tab PO DAILY 12/24/17 02/25/18 History latanoprost 1 drp OPHTHALMIC (EYE) DIRECTED 12/24/17 02/25/18 History losartan-hydrochlorothiazide 1 tab PO DAILY 12/24/17 02/25/18 History ondansetron 4 mg disintegrating 4 mg PO Q6-8H PRN #10 tab MDD 6 01/01/18 Rx tablet ondansetron 4 mg disintegrating 4 mg PO Q6H PRN #20 tab MDD 6 01/01/18 02/25/18 Rx tablet tramadol 37.5 mg-acetaminophen 325 1 tab PO Q4H PRN #30 tab MDD 6 01/01/1802/25 Rx mg tablet Allergies Allergy/AdvReac Type Severity Reaction Status Date / Time lisinopril Allergy Severe SWELLING Verified 01/24/18 11:13 LIPS, TONGUE Review of Systems Review of Systems I really can't obtain a reliable review of systems from the patient. Please see review of systems from her most recent office visit/hospitalizations. Exam Vital Signs (past 8 hours): - 03/22/18 12:22 03/22/18 13:18 03/22/18 13:45 Temperature 97.9 F Pulse Rate 104 H 116 H 121 H Respiratory Rate 30 H 29 H 29 H Blood Pressure 157/95 H Blood Pressure [Right Arm] 143/80 H 162/89 H Pulse Oximetry 94 94 94 03/22/18 14:40 03/22/18 15:08 Temperature Pulse Rate 128 H 127 H Respiratory Rate 38 H 20 Blood Pressure Blood Pressure [Right Arm] 179/102 H 165/108 H Pulse Oximetry 96 98 Oxygen Delivery Method Room Air Oxygen Flow Rate 2 Narrative Exam Narrative: Co operative woman who seems to be alert and attentive. Her responses though are bit confused. Eyes are nonicteric. Pupils equal round reactive to light. Lungs are clear to auscultation without rales or rhonchi. Decreased breath sounds in the bases. Breathing cuts off sharply most likely from abdominal pain. Her abdomen is rigid. She has a in upper abdominal vertical midline scar and a Pfannenstiel incision. No obvious hernias. Objective Imaging CT scan - abdomen: My impression: Thickening of the probable anastomosis of small bowel to large in the right upper quadrant. Small out of free air. Possible colitis principally sigmoid versus thickening from inflammation external. Diverticulosis. Radiologist's impression: Similar to my own Labs Result Diagrams: 03/22/18 12:30 03/22/18 13:00 Labs: Laboratory Results - last 24 hr 03/22/18 03/22/18 03/22/18 12:30 13:00 13:00 WBC 33.0 H* RBC 5.43 H Hgb 15.7 Hct 47.4 H MCV 87.2 MCH 28.9 MCHC 33.2 RDW 17.6 H Plt Count 302 Neut % (Auto) Not Reportable Lymph % (Auto) Not Reportable [place] % (Auto) Not Reportable Eos % (Auto) Not Reportable Baso % (Auto) Not Reportable Total Counted 100 Seg Neutrophils % 56.0 Band Neutrophils % 9.0 H Lymphocytes % (Manual) 35.0 Neutrophils # (Manual) 27056 H RBC Morphology Normal morphology Sodium 144 Potassium 3.6 Chloride 102 Carbon Dioxide 32 BUN 10 Creatinine 0.70 Estimated GFR > 60.0 BUN/Creatinine Ratio 14.3 Glucose 144 H Lactate Calcium 9.1 Total Bilirubin 1.1 AST 28 ALT 24 Alkaline Phosphatase 105 Total Protein 6.7 Albumin 3.6 Globulin 3.1 Albumin/Globulin Ratio 1.2 Lipase 20 L Procalcitonin 0.38 Urine Color Urine Appearance Urine pH Ur Specific [place] Urine Protein Urine Glucose (UA) Urine Ketones Urine Occult Blood Urine Nitrate Urine Bilirubin Urine Urobilinogen Ur Leukocyte Esterase Urine RBC Urine WBC Urine Bacteria Hyaline Casts Urine Mucus Ur Culture Indicated? Micro UA Comment 03/22/18 03/22/18 13:00 14:40 WBC RBC Hgb Hct MCV MCH MCHC RDW Plt Count Neut % (Auto) Lymph % (Auto) [place] % (Auto) Eos % (Auto) Baso % (Auto) Total Counted Seg Neutrophils % Band Neutrophils % Lymphocytes % (Manual) Neutrophils # (Manual) RBC Morphology Sodium Potassium Chloride Carbon Dioxide BUN Creatinine Estimated GFR BUN/Creatinine Ratio Glucose Lactate 2.4 H Calcium Total Bilirubin AST ALT Alkaline Phosphatase Total Protein Albumin Globulin Albumin/Globulin Ratio Lipase Procalcitonin Urine Color Yellow Urine Appearance Clear Urine pH 5.0 Ur Specific [place] 1.015 Urine Protein Negative Urine Glucose (UA) Negative Urine Ketones Negative Urine Occult Blood Trace-intact Urine Nitrate Negative Urine Bilirubin Negative Urine Urobilinogen 0.2 Ur Leukocyte Esterase Negative Urine RBC None seen Urine WBC None seen Urine Bacteria None seen Hyaline Casts 0-1/lpf Urine Mucus 2+ H Ur Culture Indicated? Cult not indicated Micro UA Comment Not Reportable Assessment & Plan Plan: Assessment/Plan Narrative: Patient is woman with sudden onset of abdominal pain this morning. She appears to be septic with an elevated white blood cell count, elevated lactate, tachycardia, and tachypnea. Source relates to an intra-abdominal perforation. Site unclear at this time. She has a history of CLL as well. She is confused but I talked in her presence with her about the findings and my recommended inch sedation that she undergo exploration and treatment of what ever cause this problem. That could involve a perforated ulcer or perforated colon. It could be really any part of her intestine. Could be something to do with her anastomosis though this would be somewhat late occurring. Talked to him about the possibility of patching a gastric or duodenal ulcer, of resecting bowel and a possible ostomy. I talked to him about the possibility of renal failure respiratory failure and heart attack. I told him that she would be in the intensive care unit postoperatively and could be on a ventilator. I told him I was not certain what I was going to do because I am not sure what I am going to find. All questions were answered and he wished to proceed. She did as well. I asked that he signed the consent.
--- NOTE | 2018-03-22 15:54 | PC.NURSE ---
Pt and spouse discussed procedure, pt and spouse verbalized understanding, denied questions and signed consent for surgery. Pt spouse signed consent for procedure. Pt is oriented yet limited verbally unable to physically sign consent form drowsy and wakes to voice.
[2018-03-22] MEDS: PANTOPRAZOLE 40 MG VIAL IV (16:15)
[2018-03-22] MEDS: LACTATED RINGERS 1,000 ML 42 ML IV ×2 (16:15→17:00)
[2018-03-22 17:10] LABS: Reflexed Lactate in 2 Hours Y
--- NOTE | 2018-03-22 17:43 | PM.PROC.1 ---
Procedures Date/Time Date of procedure: 03/22/18 Time of procedure: 16:27 General Procedure description: Thoracic epidural placed for post-op pain control after exploratory laparotomy, requested by general surgion, Dr. Bright. Risks and benefits of the procedure with discussed with the patient's consenting . Patient was positioned in right later decub position on the OR bed. ASA montioring in place. O2 via nasal cannula at 4 LPM. Patient given 1mg Versed for procedural sedation. Back was prepped with chlorhexidine and allowed to fully dry. Sterile draped applied. Procedure done using sterile technique with gloves, hat and mask. 1% lidocaine skin wheal made. Using 18ga Alessandra needle, T7-8 interspace was accessed using low resistance saline syringe. Loss of resistance at 6.5cm. Epidural catheter threaded to 11.5cm. Negative aspiration. 1.5% lido with epi given, 3mL. Negative test dose reaction. Dressed with large tegaderm and secured to shoulder. Unable to accurately assess dermatome effect due to patient alter mental state. Vital signs stable throughout procedure.
--- NOTE | 2018-03-22 17:48 | P.PCN_ITS ---
Procedures Date/Time Date of procedure: 03/22/18 Time of procedure: 16:27 General Procedure description: Thoracic epidural placed for post-op pain control after exploratory laparotomy, requested by general surgion, Dr. Bright. Risks and benefits of the procedure with discussed with the patient's consenting . Patient was positioned in right later decub position on the OR bed. ASA montioring in place. O2 via nasal cannula at 4 LPM. Patient given 1mg Versed for procedural sedation. Back was prepped with chlorhexidine and allowed to fully dry. Sterile draped applied. Procedure done using sterile technique with gloves, hat and mask. 1% lidocaine skin wheal made. Using 18ga Alessandra needle, T7 -8 interspace was accessed using low resistance saline syringe. Loss of resistance at 6.5cm. Epidural catheter threaded to 11.5cm. Negative aspiration. 1.5% lido with epi given, 3mL. Negative test dose reaction. Dressed with large tegaderm and secured to shoulder. Unable to accurately assess dermatome effect due to patient alter mental state. Vital signs stable throughout procedure.
--- NOTE | 2018-03-22 21:32 | PM.OP.1 ---
Operative Date/Time/Diagnoses Date of procedure: 03/22/18 Time of procedure: 21:06 Pre-op diagnosis: Perforated viscus Post-op diagnosis: same (Small bowel perforation proximal to anastomotic stricture) Procedure & Clinicians Procedure: Exploratory laparotomy small bowel resection with ileocolonic anastomosis and loop ileostomy Same procedure as scheduled: Yes (Consent was open ended) Indications: Perforation of an abdominal viscus with involuntary guarding and sepsis Surgeon: Senthil Bright Click Yes if Unassisted: Yes Anesthesia Type: General Operative Notes Findings: Small-bowel loops matted and strictured proximal to a strictured anastomosis. See details below Closure Type: non-primary Specimen(s): other (Anastomosis in segments of small bowel) Implants & Drains: Dimas-Garcia drain Applied: catheter (Urinary) Estimated Blood Loss (mL): 200 Procedure in detail: Patient was placed supine on the operating room table after having a epidural catheter placed. She was prepped and draped in the usual fashion. Small incision was made through a scar from the umbilicus up to mid abdomen. I entered the peritoneal cavity in yellow fluid poured forth. Cultures were taken and was suctioned out. The incision was extended superiorly and I explored the abdomen. The stomach wall was palpably normal. It was also visibly normal. In the right upper quadrant however in the right abdomen there were matted loops of small bowel with inflammation. Because of the preoperative CT scan I examined the left colon including sigmoid to the peritoneal reflection. While there was evidence of diverticulosis there was absolutely no inflammation. I irrigated all this out and examined it again and there was no sign of any leakage. This left only the matted loops of bowel in the right abdomen. Beginning at the ligament of Treitz I ran the small bowel to the point where adhesions were matted in the right abdomen. With very slow and tedious dissection I released small intestine there was 1 area of a serosal tear which simply could not have been avoided. I marked this with silk suture. I came back to it later. As I traced a dilated loop of small bowel into the right abdomen it ended overlying the visible 3rd part of the duodenum and lay over the small bowel mesentery the course of the right ureter and the iliac vessels. This loop of small bowel dove down right into this area and was no longer identifiable as intestine. It was also perforated. The opening was rather small which explained why the fluid was yellow but not grossly contaminated with particulates. I released what I could safely and then decided to work from the anastomosis backward. The patient had had a right hemicolectomy with a ileotransverse colon anastomosis. This clearly was abnormal and appeared to be strictured. Using a PIERO I fired the stapler on the colonic side of the anastomosis removing it. I then traced the bowel backward and in fact ended up cutting out the staple line so I could use the lumen of the intestine to identify the small bowel path. It simply was not identifiable as intestine by any other means looking at the structures externally. I chose to dissect off all of the mucosa but leave some of the muscle wall behind simply because I did not want to injure the duodenum the ureter or the vascular supply. This seemed to be the most prudent course. Once I had released the small bowel I transected the small bowel proximal to this strictured area. I removed all of that segment of bowel then from the new transection on the small bowel to the site of the colonic anastomosis which I had removed. I copiously irrigated the abdomen at this point I examined the area of the serosal tear and put several silk sutures 3 0 in a seromuscular fashion to close this defect. I was very careful not to narrow the intestinal lumen and material easily passed through. I decided that I would divert the patient as I was not confident that a simple repeated ileo colonic anastomosis would be adequate given the findings and the perforation. I created a side of small bowel to side of colon anastomosis in 2 layers. First I placed a back row of silk and then removed the staple line on the colon side and opened a similar amount of small bowel on the ileum side I then created a classic Connel suture line using 3 0 Polysorb and completed the outer layer with seromuscular silks. There was no evidence of leak and air passed through the is widely patent anastomosis without difficulty. Proximally the small bowel was dilated and so there was no narrowing of the inlet. I chose an area of small bowel that would easily come to the right abdomen and a wall for a loop ileostomy. I avoided the ribcage and the pelvis as best as possible and made a circular incision in the skin over the lateral aspect of the rectus muscle. The anterior fascia was incised in a cruciate manner and the posterior in a vertical manner. The loop of small bowel was brought up through it. I then copiously irrigated the abdomen again. I suctioned all the fluid and placed a Dimas-Garcia drain overlying where the stricture and perforation had been. Of note, I had the anesthesiologist insert blue dye into the stomach and air and pushed it through the sweep of the duodenum just to make sure there was no problem with the 3rd part of the duodenum. There was no leak of air were blue dye. The drain was placed over this area as that was where the stricture had been. The fascia was closed with a running double-stranded 1. Maxon and a few interrupted 1. Polysorb. I left the skin open but I placed a few nylon sutures to be tied later. The ostomy was then matured. I placed a bar made from NG tube under the loop to hold it up port and sutured that into the skin with interrupted 3 0 nylon the of ostomy was then matured using interrupted 3 0 Polysorb. A bag was placed and patient was awakened extubated and taken the recovery room good condition. While she was still tachycardic it was markedly improved. Her blood pressure was acceptable and she had made urine during the operation. Complications: none Condition: critical Disposition: ICU
[2018-03-22 22:11] LABS: Add Manual Diff / Slide Review NO; Basophils Percent Auto 0.1 % (0-2); Hematocrit 44.8 % (36-46); Hemoglobin 14.7 g/dL (12.0-16.0); Lymphocytes Percent Auto 41.6 % (25-40); Mean Corpuscular HGB Conc 32.8 % (30-36); Mean Corpuscular Hemoglobin 28.8 PG (26-34); Mean Corpuscular Volume 87.8 fL (80-100); Monocytes Percent Auto 1.8 % (3-14); Neutrophils Absolute Auto 11300 /uL (3000-5900); Neutrophils Percent Auto 56.5 % (50-75); Platelet Count 250 X10^3/uL (150-400); Red Blood Cell Count 5.11 X10^6/uL (4.0-5.2); Red Cell Distribution Width 17.6 % (11.6-14.8); White Blood Cell Count 20.1 X10^3/uL (4.5-11.0)
[2018-03-22] MEDS: FENT 2MCG/BUPIV 0.125% EPI 2 MCG/100 ML PLAST..BAG 5 MCG EPIDURAL (22:11)
--- NOTE | 2018-03-22 22:16 | PC.NURSE ---
2139- Patient arrived from PACU in a bed to room 104. Patient is awake and responsive. Patient in sinus tach, 02 at 2liters saturation is 98%. Patient has a midline abdominal wound dressing is CDI. There is a CHRISTINA drain. Patient denies pain. Lester is draining clear yellow urine. IVF infusing per MD order. Lungs are clear anteriorly. SCD's are on. BG is 112. Epidural infusion started per Anesthesia at 5ml/hr. Patient is stable at this time.
[2018-03-22 22:18] LABS: Lactate (Lactic Acid) 3.7 mmol/L (0.7-2.1)
[2018-03-22 22:19] LABS: Alanine Aminotransferase 24 IU/L (9-52); Albumin 2.3 g/dL (3.5-5.0); Alkaline Phosphatase 55 U/L (38-126); Aspartate Aminotransferase 34 IU/L (14-36); BUN Creatinine Ratio 15.7 (6-22); Blood Urea Nitrogen 11 mg/dL (7-17); Calcium 7.8 mg/dL (8.4-10.2); Carbon Dioxide 24 mmol/L (22-32); Chloride 106 mmol/L (98-107); Estimated Glomerular Filt Rate > 60.0 mL/min (>60); Globulin 2.4 g/dL (1.7-4.1); Glucose 123 mg/dL (80-110); HEMOLYSIS < 15 (0-50); Sodium 139 mmol/L (137-145); Total Protein 4.7 g/dL (6.3-8.2)
[2018-03-22] MEDS: LACTATED RINGERS 1,000 ML 150 ML IV (22:30)
[2018-03-23] VITALS (19 sets, daily range): BP systolic 83–140; BP diastolic 56–83; PULSE 94–112; RESP 13–111; TEMP 36.2–37.3; O2SAT 92–100
[2018-03-23] MEDS: PIPERACILLIN-TAZO 3.375 GM/50 ML FROZ.PIGGY IV ×4 (00:42→18:18)
[2018-03-23 02:04] LABS: Reflexed Lactate in 2 Hours Y
[2018-03-23] MEDS: LACTATED RINGERS 1,000 ML 150 ML IV ×3 (05:39→20:47)
--- NOTE | 2018-03-23 07:05 | PC.NURSE ---
NOC Shift: Pt POD 1 perfed bowel resection. Pt AAOx3, denies pain w/Bup/Fentanyl epidural @ 5mls/hr. Affective pain control w/level at T6. VSS, SR on tele. NPO, no BT's audible at this time. ABD flat, soft. Dsg. CDI. Colostomy beefy red, moist. CHRISTINA patent. NG. Has not been OOB, will get up today. ICU care.
--- NOTE | 2018-03-23 11:48 | CM.DANOTE ---
Patient is a 72 yo female admittd for perforated bowel and had a bowel resection 03/22. Insurance: Medicare and AARP PCP: Dr. Sayra Russo Met with the patient and her at the bedside. The patient is awake and alert. Role of tool planner explained. The couple live together in [place]. Her Cris Warren is her DPOA. The patient has one son who lives in [place], [place] and is aware of her hospitalization. The patient and her are usually I and both drive. Patient has a recent history in the last 6 months of a previous resection and another hospitalization for complications after surgery. She has no history with or SNF. She has used [facility] for help in the house after her previous surgery. They plan for patient to return home when medically stable. Plan: Home when stable.
--- NOTE | 2018-03-23 12:48 | PM.PNPO.1 ---
Subjective Date Patient Seen: 03/23/18 Time Patient Seen: 12:48 Interval history: Patient feels much better she says than yesterday. Asked about what all the tubes and IVs were for. Pain is well controlled she said Exam Vital Signs (past 8 hours): - 03/23/18 05:02 03/23/18 06:02 03/23/18 07:19 Temperature 99.1 F Pulse Rate 96 H 101 H 94 H Respiratory Rate 20 18 16 Blood Pressure 91/66 90/65 91/57 L Pulse Oximetry 99 97 97 03/23/18 08:30 03/23/18 08:36 03/23/18 12:01 Temperature 98.9 F Pulse Rate 101 H 104 H Respiratory Rate 18 23 Blood Pressure 92/67 98/61 Pulse Oximetry 100 97 96 Oxygen Delivery Method Room Air Oxygen Flow Rate 1 Narrative Exam Narrative: Lungs fairly good effort. Slight decrease in the bases. Otherwise clear. Heart regular rate and rhythm. Slower pace than yesterday. Just above 100 at this time. Her abdomen is flat. Ostomy is pink. Dressings are intact from the operating room. No real ostomy output which isn't surprising. Urine output appears to be adequate. Temperature is down. Postoperative dressing is intact. Objective Labs Result Diagrams: 03/22/18 22:00 03/22/18 22:00 Labs: Laboratory Results - last 24 hr 03/22/18 03/22/18 03/22/18 12:30 13:00 13:00 WBC 33.0 H* RBC 5.43 H Hgb 15.7 Hct 47.4 H MCV 87.2 MCH 28.9 MCHC 33.2 RDW 17.6 H Plt Count 302 Neut % (Auto) Not Reportable Lymph % (Auto) Not Reportable [place] % (Auto) Not Reportable Eos % (Auto) Not Reportable Baso % (Auto) Not Reportable Neut # (Auto) Total Counted 100 Seg Neutrophils % 56.0 Band Neutrophils % 9.0 H Lymphocytes % (Manual) 35.0 Neutrophils # (Manual) 21946 H RBC Morphology Normal morphology Sodium 144 Potassium 3.6 Chloride 102 Carbon Dioxide 32 BUN 10 Creatinine 0.70 Estimated GFR > 60.0 BUN/Creatinine Ratio 14.3 Glucose 144 H Lactate Calcium 9.1 Total Bilirubin 1.1 AST 28 ALT 24 Alkaline Phosphatase 105 Total Protein 6.7 Albumin 3.6 Globulin 3.1 Albumin/Globulin Ratio 1.2 Lipase 20 L Procalcitonin 0.38 Urine Color Urine Appearance Urine pH Ur Specific [place] Urine Protein Urine Glucose (UA) Urine Ketones Urine Occult Blood Urine Nitrate Urine Bilirubin Urine Urobilinogen Ur Leukocyte Esterase Urine RBC Urine WBC Urine Bacteria Hyaline Casts Urine Mucus Ur Culture Indicated? Micro UA Comment Nasal Screen MRSA (PCR) 03/22/18 03/22/18 03/22/18 13:00 14:40 22:00 WBC 20.1 H RBC 5.11 Hgb 14.7 Hct 44.8 MCV 87.8 MCH 28.8 MCHC 32.8 RDW 17.6 H Plt Count 250 Neut % (Auto) 56.5 Lymph % (Auto) 41.6 H [place] % (Auto) 1.8 L Eos % (Auto) 0.0 L Baso % (Auto) 0.1 Neut # (Auto) 05475 H Total Counted Seg Neutrophils % Band Neutrophils % Lymphocytes % (Manual) Neutrophils # (Manual) RBC Morphology Sodium Potassium Chloride Carbon Dioxide BUN Creatinine Estimated GFR BUN/Creatinine Ratio Glucose Lactate 2.4 H Calcium Total Bilirubin AST ALT Alkaline Phosphatase Total Protein Albumin Globulin Albumin/Globulin Ratio Lipase Procalcitonin Urine Color Yellow Urine Appearance Clear Urine pH 5.0 Ur Specific [place] 1.015 Urine Protein Negative Urine Glucose (UA) Negative Urine Ketones Negative Urine Occult Blood Trace-intact Urine Nitrate Negative Urine Bilirubin Negative Urine Urobilinogen 0.2 Ur Leukocyte Esterase Negative Urine RBC None seen Urine WBC None seen Urine Bacteria None seen Hyaline Casts 0-1/lpf Urine Mucus 2+ H Ur Culture Indicated? Cult not indicated Micro UA Comment Not Reportable Nasal Screen MRSA (PCR) 03/22/18 03/22/18 03/22/18 22:00 22:00 22:00 WBC RBC Hgb Hct MCV MCH MCHC RDW Plt Count Neut % (Auto) Lymph % (Auto) [place] % (Auto) Eos % (Auto) Baso % (Auto) Neut # (Auto) Total Counted Seg Neutrophils % Band Neutrophils % Lymphocytes % (Manual) Neutrophils # (Manual) RBC Morphology Sodium 139 Potassium 4.0 Chloride 106 Carbon Dioxide 24 BUN 11 Creatinine 0.70 Estimated GFR > 60.0 BUN/Creatinine Ratio 15.7 Glucose 123 H Lactate 3.7 H Calcium 7.8 L Total Bilirubin 1.0 AST 34 ALT 24 Alkaline Phosphatase 55 D Total Protein 4.7 L Albumin 2.3 L Globulin 2.4 Albumin/Globulin Ratio 1.0 Lipase Procalcitonin Urine Color Urine Appearance Urine pH Ur Specific [place] Urine Protein Urine Glucose (UA) Urine Ketones Urine Occult Blood Urine Nitrate Urine Bilirubin Urine Urobilinogen Ur Leukocyte Esterase Urine RBC Urine WBC Urine Bacteria Hyaline Casts Urine Mucus Ur Culture Indicated? Micro UA Comment Nasal Screen MRSA (PCR) Negative for mrsa Assessment & Plan Post-op Postoperative Procedures Operation Date: 03/22/18 16:15 Actual Procedures Side Surgeon p Exploratory Laparotomy, small bowel resection with ileocolic anastomosis Senthil Bright MD Postoperative day: 1 Postoperative status narrative: Doing remarkably well. Blood pressure is acceptable. Pulse is just over 100 which is markedly improved from preop. Part of this is probably due to the excellent pain control her epidural is giving her. Ostomy is clearly viable. No output which is not surprising. NG tube is draining blue material which is due to the methylene blue we added during the operation. Drainage is clearing. Very little blood and slightly cloudy. Urine output has been adequate. Postoperative plan narrative: Continue IV fluids at same rate. Will place a PICC line tomorrow and start TPN gradually. Labs have been ordered for the morning. Lactate will be repeated long with a procalcitonin today. His could that her white blood cell count has dropped significantly with the operation. The differential is however is probably misleading due to her CLL. Increase in her lymphocyte count will make the differential look more normal than it probably should be. Ostomy appears to be viable. Will have the ostomy nurse see her as soon as available. Work on her breathing. She is doing far better than I anticipated. I am cautiously optimistic. We will look at her dressing. Time Spent With Patient 25 - 35 minutes
[2018-03-23] MEDS: SODIUM CHLORIDE 0.9% EPIDURAL (12:54)
[2018-03-23] MEDS: BUPIVACAINE 0.5% EPIDURAL (12:54)
[2018-03-23] MEDS: FENTANYL EPIDURAL (12:54)
--- NOTE | 2018-03-23 13:31 | PT.IIE ---
Surgery Performed Operation Date: 03/22/18 16:15 Actual Procedures p Exploratory Laparotomy, small bowel resection with ileocolic anastomosis - Senthil Bright MD Surgical History (Last Reviewed 03/22/18 @ 15:33 by PAULO Plunkett) History of colonoscopy (Acute) Status post laparoscopic colectomy (Acute) Medical History (Last Reviewed 03/22/18 @ 15:33 by PAULO Plunkett) Hypertension (Acute) Mild protein-calorie malnutrition (Acute) CLL (chronic lymphocytic leukemia) (Chronic) Erythrocytosis (Chronic) Glaucoma (Chronic) H/O: hysterectomy (Resolved) Mass of appendix (Resolved) Other bursal cyst, unspecified wrist (Resolved) Tubal ligation status (Resolved) Physical Therapy Inpatient Evaluation/Re-Eval M1 PT/OT-IP Prior Functional Status Start: 03/23/18 13:31 Freq: Status: Active Protocol: Document 03/23/18 13:31 [facility] (Rec: 03/23/18 13:43 [facility] [id number]) Medical Review Prior Functional Status Medical History Reviewed Yes Mobility and Gait indep community ambulation without device (she did use a 4WW after previous hospitalizations but not using it prior to this episode) Activities of Daily Living and IADL's indep. I/ADLs including driving Social History Household Members spouse Living Arrangements House Number of Floors (Floors) One Floor Number of Stairs To Enter/Railing? 2 SE with wall of house to use for UEs Home Environment Standard Height Toilet Tub/Shower Home Equipment Four Wheel Walker Bed Rails Grab Bars Near Toilet Grab Bars In Shower Additional Social History Comment Pt notes they are in the rehab process of installing a bathroom with [place] shower, not yet completed. Spouse can assist upon d/c per pt. M2 PT-IP Current Condition Start: 03/23/18 13:31 Freq: Status: Active Protocol: Document 03/23/18 13:31 RCC (Rec: 03/23/18 13:43 [facility] [id number]) Physical Therapy Current Condition Current Condition Evaluation Date 03/23/18 Treatment Diagnosis abdominal pain s/p ex. lap. small bowel resection, impaired mobility Onset Date 03/22/18 Precautions Abdominal Surgery Precautions Log Roll Lifting Restrictions Gait Belt above Incisional Area Other Precautions CHRISTINA drain, blount catheter, NG tube, thoraic epidural M3 PT-IP Subjective Start: 03/23/18 13:31 Freq: Status: Active Protocol: Document 03/23/18 13:31 RCC (Rec: 03/23/18 13:43 [facility] [id number]) Subjective Physical Therapy Visit Type Type Initial Evaluation Visit Start Time 13:03 Visit Stop Time 13:31 Total Visit Minutes 28 Number of LICENSED LOAN OFFICER Visits 0 Physical Therapy Visit Comments Patient Comments pt agreeable to mobilize. Therapy Pain Assessment Location Abdomen Pain Behaviors [place] Pain Management Techniques Modification of Treatment Re-positioning M4 PT-IP Mobility and Gait Start: 03/23/18 13:31 Freq: Status: Active Protocol: Document 03/23/18 13:31 [facility] (Rec: 03/23/18 13:43 [facility] [id number]) PT-Bed Mobility Assessment Rolling Type of Rolling Log Rolling Roll to Left Level of Assist Minimal Assistance 1 Person Assistance Supine to Sit Supine to Sit Moderate Assistance 1 Person Assistance Bedrails Sit to Supine Sit to Supine Moderate Assistance 2 Person Assistance Scooting Scooting to Edge of Bed Moderate Assistance PT-Transfer Assessment Comments Mobility Comments pt sat on EOB for 2 min, pain reported to be high, and pt declined OOB this p.m. PT-Balance Assessment Sitting Balance and Reactions Static Sitting Balance Ability Good Dynamic Sitting Balance Ability Good M5 PT-IP Objective Assessments Start: 03/23/18 13:31 Freq: Status: Active Protocol: Document 03/23/18 13:31 RCC (Rec: 03/23/18 13:43 [facility] [id number]) Orientation Orientation/Cognition Level of Alertness Alert Language Function Ability No Deficits Noted Safety Awareness Understands Safety Issues Memory Description No Deficits Noted Strength Comments Strength Comments able to PF/DF B feet, assist with knee flexion for log roll Coordination Assessment Gross Coordination Gross Coordination WNL Sensation Assessment Sensation Gross Sensation WNL Muscle Tone Muscle Tone WNL Yes M6 PT-IP Treatment Start: 03/23/18 13:31 Freq: Status: Active Protocol: Document 03/23/18 13:31 RCC (Rec: 03/23/18 13:43 [facility] [id number]) Physical Therapy Treatment Exercises Exercises Ankle Pumps Education Education Provided Precautions Safety M7 PT-IP Assessment and Plan Start: 03/23/18 13:31 Freq: Status: Active Protocol: Document 03/23/18 13:31 RCC (Rec: 03/23/18 13:43 [facility] [id number]) PT Summary Assessment and Plan Potential Rehabilitation Potential Good Status of Condition at Evaluation Evolving Summary Impairments Pain Strength Bed Mobility Transfers Gait Activity Tolerance Assessment Summary POD #1 exploratory laparotomy of small bowel with resection. Pt with epidural in still, but cleared for mobility by anesthesia. Pt able to sit on EOB, require manual assistance for bed mobility. She declined out of bed activity due to pain and overall feeling poorly. Expect pt to continue to progress during this episode of care, and expressed the motivation to be able to d/c home. Will continue to assess, but not safe to return home at this point as she is not ambulatory today. Goals Bed Mobility Goal Contact Guard Assistance Transfer Goal Standby Assistance Gait Goal Standby Assistance Gait Distance 50 Other Goals up/down 2 steps with CGA and no rails Days to Meet Goals 5 Frequency of Treatment Frequency Of Treatment Once a Day Treatment Plan Physical Therapy Treatment Plan Bed Mobility Training Transfer Training Gait Training Balance Retraining Discharge Planning Neuromuscular Re-ed Recommendations To Nursing Amount of Assist Needed PT/OT Assist Only Discharge Recommendations PT Discharge Recommendations Home with Assistance Home Health SNF Rehab Other Discharge Recommendations home with and HH physical therapy vs. SNF, requires ongoing assessment.
[2018-03-23 13:40] LABS: Procalcitonin 6.45 ng/mL (<0.5)
[2018-03-23] MEDS: ENOXAPARIN 40 MG/0.4 ML SYRINGE SUBCUT (13:59)
[2018-03-23] MEDS: HYDROMORPHONE 0.5 MG INJ IV (15:38)
--- NOTE | 2018-03-23 16:00 | PC.NURSE ---
1545- Patient C/O pain in the abdomen 10/31. Heart rate is elevated and BP is elevated. Dr. Kim anesthesia notified and orders rec. Will monitor.
[2018-03-23 17:06] LABS: Reflexed Lactate in 2 Hours Y
[2018-03-23 17:36] LABS: Lactate 2HR (Lactic Acid Rflx) 1.8 mmol/L (0.7-2.1)
[2018-03-24] VITALS (15 sets, daily range): BP systolic 106–155; BP diastolic 72–95; PULSE 94–113; RESP 15–23; TEMP 36.6–37.2; O2SAT 90–98
[2018-03-24] MEDS: PIPERACILLIN-TAZO 3.375 GM/50 ML FROZ.PIGGY IV ×5 (00:03→23:57)
[2018-03-24] MEDS: LACTATED RINGERS 1,000 ML 150 ML IV ×2 (03:54→12:59)
[2018-03-24 05:24] LABS: BUN Creatinine Ratio 28.6 (6-22); Blood Urea Nitrogen 20 mg/dL (7-17); Carbon Dioxide 30 mmol/L (22-32); Chloride 105 mmol/L (98-107); Estimated Glomerular Filt Rate > 60.0 mL/min (>60); Glucose 89 mg/dL (80-110); HEMOLYSIS < 15 (0-50); Magnesium 1.5 mg/dL (1.6-2.3); Potassium 3.9 mmol/L (3.4-5.1); Sodium 139 mmol/L (137-145)
[2018-03-24 05:32] LABS: Hematocrit 35.5 % (36-46); Hemoglobin 11.8 g/dL (12.0-16.0); Mean Corpuscular HGB Conc 33.3 % (30-36); Mean Corpuscular Hemoglobin 28.9 PG (26-34); Mean Corpuscular Volume 86.7 fL (80-100); Platelet Count 202 X10^3/uL (150-400); Red Cell Distribution Width 17.5 % (11.6-14.8)
[2018-03-24 05:49] LABS: Add Manual Diff / Slide Review YES; White Blood Cell Count 30.6 X10^3/uL (4.5-11.0)
--- NOTE | 2018-03-24 06:33 | PC.NURSE ---
NOC Shift: POD 2 bowel resection. Pt awake, alert oriented to place, situation. Has periods through shift of anxiousness, has stated feeling a cat sitting on her feet and wanting to see if it is there, also stated hearing people in her room talking, whispering. Pt redirects w/cues and falls back to sleep. Epidural increased to 8mls/hr on edwin shift for pain control, currently affective at T6 however pt is now complaining of sore throat and right ear pain she thinks is related to NG tube. VSS, ST on tele. ABD dsg CDI, ostomy stable, CHRISTINA patent no BT's audible at this time. Remains ICU care.
[2018-03-24 07:03] LABS: Neutrophils Absolute Manual 25398 /uL (3000-5900); Smudge Cells 2+; Total Cells Counted 100
[2018-03-24 07:04] LABS: Dohle Bodies 1+
--- NOTE | 2018-03-24 07:38 | PM.PNPO.1 ---
Subjective Date Patient Seen: 03/24/18 Time Patient Seen: 07:39 Interval history: Patient complains of a sore throat this morning. Also in earache. Her belly feels better. Overall she thinks she feels better than yesterday. Pain is well controlled with the epidural. Exam Vital Signs (past 8 hours): - 03/24/18 00:00 03/24/18 00:10 03/24/18 00:34 Temperature 98.4 F Pulse Rate 111 H Respiratory Rate 19 Blood Pressure 108/72 Pulse Oximetry 97 97 97 03/24/18 01:09 03/24/18 02:00 03/24/18 03:00 Temperature Pulse Rate 108 H 111 H 112 H Respiratory Rate 17 23 23 Blood Pressure 106/75 118/75 126/80 Pulse Oximetry 94 03/24/18 03:03 03/24/18 04:00 03/24/18 06:00 Temperature 98.9 F Pulse Rate 113 H Respiratory Rate 21 Blood Pressure 129/86 Pulse Oximetry 96 97 98 Oxygen Delivery Method Room Air Oxygen Flow Rate 0 Narrative Exam Narrative: Lungs fairly clear. Good effort. Heart regular rate and rhythm. A little bit tachycardic. Abdomen is flat. Dressing is intact. The ostomy is bright pink. No output yet picked of significance. Objective Labs Result Diagrams: 03/24/18 04:54 03/24/18 04:54 Labs: Laboratory Results - last 24 hr 03/23/18 03/23/18 03/23/18 13:00 13:00 17:15 WBC RBC Hgb Hct MCV MCH MCHC RDW Plt Count Neut % (Auto) Lymph % (Auto) [place] % (Auto) Eos % (Auto) Baso % (Auto) Total Counted Seg Neutrophils % Band Neutrophils % Lymphocytes % (Manual) Atypical Lymphs % Monocytes % (Manual) Metamyelocytes % Neutrophils # (Manual) Smudge Cells Dohle Bodies RBC Morphology Sodium Potassium Chloride Carbon Dioxide BUN Creatinine Estimated GFR BUN/Creatinine Ratio Glucose Lactate 3.0 H 1.8 Calcium Magnesium Procalcitonin 6.45 H 03/24/18 03/24/18 04:54 04:54 WBC 30.6 H* D RBC 4.10 Hgb 11.8 L Hct 35.5 L MCV 86.7 MCH 28.9 MCHC 33.3 RDW 17.5 H Plt Count 202 Neut % (Auto) Not Reportable Lymph % (Auto) Not Reportable [place] % (Auto) Not Reportable Eos % (Auto) Not Reportable Baso % (Auto) Not Reportable Total Counted 100 Seg Neutrophils % 68.0 Band Neutrophils % 15.0 H Lymphocytes % (Manual) 8.0 L Atypical Lymphs % 4.0 H Monocytes % (Manual) 3.0 Metamyelocytes % 2.0 H Neutrophils # (Manual) 01608 H Smudge Cells 2+ H Dohle Bodies 1+ H RBC Morphology See below Sodium 139 Potassium 3.9 Chloride 105 Carbon Dioxide 30 BUN 20 H Creatinine 0.70 Estimated GFR > 60.0 BUN/Creatinine Ratio 28.6 H Glucose 89 Lactate Calcium 8.0 L Magnesium 1.5 L Procalcitonin Assessment & Plan Post-op Postoperative Procedures Operation Date: 03/22/18 16:15 Actual Procedures Side Surgeon p Exploratory Laparotomy, small bowel resection with ileocolic anastomosis Senthil Bright MD Postoperative status narrative: I greater than 0. Urine output has been adequate. She is over 8 L up though since the operation. Magnesium is a little low this morning. White blood cell count is up to 30. Marked left shift. Drainage is essentially serous. Cultures are pending. NG output remains colored by the dye we inserted at operation. Sore throat and earache from the NG tube. Postoperative plan narrative: Lead Diflucan to her medications given the perforation of her small bowel. She is also was set up for thrush. Will continue broad-spectrum antibiotics but I may add Flagyl to the mix. Await culture results. PICC line today. Begin TPN. Her wrist small amount of Lasix this morning the see if we can't stimulate her kidneys and get some of the excess fluid off.
[2018-03-24] MEDS: ENOXAPARIN 40 MG/0.4 ML SYRINGE SUBCUT (08:07)
[2018-03-24] MEDS: metroNIDAZOLE 500 MG/100 ML PIGGYBACK 100 MG IV ×3 (08:14→19:21)
[2018-03-24] MEDS: FLUCONAZOLE 400 MG/200 ML PIGGYBACK 100 MG IV (08:14)
[2018-03-24] MEDS: BENZOCAINE/MENTHOL 1 LOZ PKT 1 EACH PO (08:15)
[2018-03-24] MEDS: FUROSEMIDE 20 MG/2 ML VIAL 10 MG IV (08:16)
[2018-03-24] MEDS: MAGNESIUM SULFATE 2 GM/50 ML PIGGYBACK IV (08:18)
--- NOTE | 2018-03-24 09:17 | PC.NURSE ---
Pt c/o low back pain that is intermittent, cramping. Rates it 7/10 on 0-10 pain scale. She declines use of ice pack or warm towel. Repositioned for comfort. Called to Dr. Daugherty and left voice message to return call regarding pt c/o pain. Dr. Bright rounded. Discussed plan of care. Dr. Bright instructs for dsg to be changed when service rig operator is here around 1300 today.
--- NOTE | 2018-03-24 10:21 | DI.RAD.S_ITS ---
PROCEDURE: XR CHEST FOR PICC 1V INDICATIONS: PICC placement TECHNIQUE: One view of the chest was acquired. COMPARISON: [facility], , CHEST 2 VIEW, 08/03/2010, 12:21. FINDINGS: Surgical changes and devices: A PICC line catheter is identified overlying the left chest with the tip positioned at the expected location of the superior vena cava. Nasogastric tube may be present, as well. Lungs and pleura: No pleural effusions or pneumothorax. There may be mild basilar atelectasis. No large area of consolidation is identified. Mediastinum: Mediastinal contours appear normal. Heart size is normal. There is aortic atherosclerosis. Bones and chest wall: No suspicious bony lesions. Overlying soft tissues appear unremarkable. IMPRESSION: Left-sided PICC line catheter is positioned with the tip overlying the superior vena cava. Dictated by: Clem Lopez M.D. on 03/24/2018 at 10:11 Approved by: Clem Lopez M.D. on 03/24/2018 at 10:12
--- NOTE | 2018-03-24 10:22 | PT.IPTN ---
Current Diagnoses Sepsis, unspecified organism (03/22/18) Surgery Performed Operation Date: 03/22/18 16:15 Actual Procedures p Exploratory Laparotomy, small bowel resection with ileocolic anastomosis - Senthil Bright MD Physical Therapy Treatment Note Physical Therapy Current Condition Current Condition Evaluation Date 03/23/18 Treatment Diagnosis abdominal pain s/p ex. lap. small bowel resection, impaired mobility Onset Date 03/22/18 Precautions Abdominal Surgery Precautions Log Roll Lifting Restrictions Gait Belt above Incisional Area Other Precautions CHRISTINA drain, blount catheter, NG tube, thoraic epidural Subjective Physical Therapy Visit Type Type Treatment Note Visit Start Time 09:15 Visit Stop Time 09:58 Total Visit Minutes 43 Physical Therapy Visit Comments Patient Comments Pt c/o of chronic back pain in addition to abdominal pain from drainage tube insertion. Therapy Pain Assessment Pain When Pain Assessed At Rest Pain Present Pain Present Pain Reported Location Bilateral Lower Back Intensity 7 Scale Used Numeric (1 - 10) Pain Behaviors Facial Grimacing Pain Management Techniques Modification of Treatment Re-positioning PT-Bed Mobility Assessment Supine to Sit Supine to Sit Maximum Assistance 1 Person Assistance Head of Bed Elevated Bedrails Sit to Supine Sit to Supine Moderate Assistance 2 Person Assistance PT-Transfer Assessment Comments Mobility Comments Attempted to educate on progression of log rolling for bed mobility, pt having a difficult time participating in this activity due to significant abdominal pain. She required max A to sit up from supine, help with both torso and legs was needed. Once in sitting pt able to sit EOB with only SBA. Pt reported it wasn't as bad as she thought it would be. Pt likely could have toelrated standing today, but RN arrived to put in a PICC line, so this couldn't be trialed this session. Gait Assessment Comments Gait Comments not ready to perform Stair Climbing Assessment Comments Stair Climbing Comments not ready to perform PT-Balance Assessment Sitting Balance and Reactions Static Sitting Balance Ability Good Orientation Orientation/Cognition Level of Alertness Alert Language Function Ability No Deficits Noted Safety Awareness Understands Safety Issues Memory Description No Deficits Noted Strength Comments Strength Comments able to PF/DF B feet, assist with knee flexion for log roll Coordination Assessment Gross Coordination Gross Coordination WNL Sensation Assessment Sensation Gross Sensation WNL Muscle Tone Muscle Tone WNL Yes Physical Therapy Treatment Other Treatments Other Treatment Performed seated marches x 10, seated LAQ x10, ankle pumps x10 , and heel slides x 5. PT Summary Assessment and Plan Potential Rehabilitation Potential Good Status of Condition at Evaluation Evolving Summary Impairments Pain Strength Bed Mobility Transfers Gait Activity Tolerance Progress Towards Goals Progressing Toward Goals Slow Progress due to Pain Assessment Summary POD#2 ex lap, pt still with epidural in but is most limited by abbominal pain at this time. Pt also quite anxious and focused on protecting/bracing the abdomen during mobility. This limits her full participation in each activity as well. However, pt remains motivated and cooperative during the session . Pt continues to function below her reported functional baseline and has potential for functional improvement. Anticipate that with continued participation in skilled acute PT and mobilization with nursing staff that pt will be able to transition directly home with assist from her onec medically ready. However, there is a slight chance that pt's functional progress will be too slow and she might need a short stay at rehab. This will largely depend on how long she will be at the hospital. Will continue to assess daily. Goals Bed Mobility Goal Contact Guard Assistance Transfer Goal Standby Assistance Gait Goal Standby Assistance Gait Distance 50 Other Goals up/down 2 steps with CGA and no rails Days to Meet Goals 4 Frequency of Treatment Frequency Of Treatment Twice a Day Treatment Plan Physical Therapy Treatment Plan Bed Mobility Training Transfer Training Gait Training Therapeutic Exercise Balance Retraining Discharge Planning Neuromuscular Re-ed Other Recommendations and Next Treatment continue bed mobility, attempt Focus standing Recommendations To Nursing Amount of Assist Needed PT/OT Assist Only Discharge Recommendations PT Discharge Recommendations Home with Assistance Home Health SNF Rehab
[2018-03-24] MEDS: BUPIVACAINE 0.5% EPIDURAL (15:40)
[2018-03-24] MEDS: SODIUM CHLORIDE 0.9% EPIDURAL (15:40)
[2018-03-24] MEDS: FENTANYL EPIDURAL (15:40)
--- NOTE | 2018-03-24 17:24 | PC.NURSE ---
Addendum entered by Marilyn William R.N. 03/24/18 22:11: 2200 - Pt sitting up in bed. Adjusting blankets. Asked if pt needed assistance, Pt states, No, I am just thinking about going home. Pt states she may need to get her purse, or some cosmetics. Reoriented to situation, reviewed lines and tubes. Pt states well it's not that far. Encourage pt to wait until morning and staff with call with list of needed supplies. Reoriented to time, safety and call light use. Bed alarm on. Original Note: Addendum entered by Marilyn William R.N. 03/24/18 20:32: 2000 - Pt resting quietly. Asked about pain, pt states, It must be okay, I was sleeping. Repositioned for linen straightening and epidural site assessment. Pt resistive to side-lying position. Encouraged splinting and deep breathing. Drsg to mid-line with scant shadow drainage at the distal portion of drsg. Ostomy with dark liquid drainage. NGT to LIS with green drainage. Set up for oral care. Call light in reach. Original Note: Pt with some mild confusing. States that the room needs to be put back the way it was. Asking to have bed position changed toward the door. Confirmed that pt would be unable to see the TV. Pt state oh, then I guess that wasn't how it was. Pt goes on to ask that monitor screen be moved to the other side of the room. Pt answers orientation questions appropriately, however thought process is somewhat off. Pt refusing to use I.S. educated to post-op pneumonia, Pt states you are being pushy, I am not going to do that today. Pt also refusing to have SCD's on. Pt states her pain is an 8 of 10 to her back and indicating her right abd, ostomy site. Anesthesiology notified. Epidural infusing at 8mls/hr. Anesthesia rounded on patient. Pt reports pain 6 of 10 during assessment. No new orders.
--- NOTE | 2018-03-24 17:33 | PC.NURSE ---
Wound Ostomy Nurse Consult Note Maria Dolores awake and alert. She states she has a bag and she doesn't know how to take care of it. I told her I would be teaching her and her Ned in the coming days. Her stoma measures 32mm. It is edematous and red. She is producing green soft effluent. I emptied 25cc of green colored liquid effluent. The bridge is sutured in place. I changed the ostomy appliance. Her peristomal skin is intact. I placed a 57mm moldable Convatec two piece pouching system with a clear non-filter pouch. I also changed her abdominal dressing. Removing the old dry 4x4 gauze. Her abdominal wound measures 11cm x2cm x 2cm. I replace one 4x4 moist with sailing gauzed into the upper portion of the incisional wound and a 2x2 in the lower aspect of the incisional wound both moistened with Normal Saline. Then placed two folded 4x4 and covered with a tagaderm. I replace the 4x4 around the CHRISTINA drain. The CHRISTINA drain in draining serosanguenous drainage. She also has an NG tube to wall suction with is draining green colored liquid. Maria Dolores states that she is begining to feel hungry. She also has a blount cath. that is draining clear yellow urine. I left teaching materials at Maria Dolores's bedside and told her she could start review the materials and I will be up tomorrow to continue with her teaching.
[2018-03-24] MEDS: LYTES IV (17:54)
[2018-03-24] MEDS: FAT EMULSIONS 50 GM/250 ML EMULSION IV (17:54)
[2018-03-24] MEDS: DEXT IV (17:54)
[2018-03-24] MEDS: MAGNESIUM SULFATE IV (17:54)
[2018-03-24] MEDS: [UNRECOGNIZED DRUG - OTHER] IV (17:54)
[2018-03-24] MEDS: CALCIUM IV (17:54)
[2018-03-25] VITALS (10 sets, daily range): BP systolic 127–157; BP diastolic 65–99; PULSE 90–95; RESP 14–19; TEMP 36.1–37.6; O2SAT 93–98
[2018-03-25] MEDS: LACTATED RINGERS 1,000 ML 60 ML IV (01:29)
[2018-03-25] MEDS: metroNIDAZOLE 500 MG/100 ML PIGGYBACK 100 MG IV ×4 (01:30→20:59)
[2018-03-25 05:38] LABS: Add Manual Diff / Slide Review NO; Basophils Percent Auto 0.1 % (0-2); Eosinophils Percent Auto 0.2 % (2-4); Hematocrit 31.6 % (36-46); Hemoglobin 10.6 g/dL (12.0-16.0); Mean Corpuscular HGB Conc 33.6 % (30-36); Mean Corpuscular Hemoglobin 29.2 PG (26-34); Mean Corpuscular Volume 86.9 fL (80-100); Neutrophils Absolute Auto 17300 /uL (3000-5900); Neutrophils Percent Auto 68.7 % (50-75); Platelet Count 170 X10^3/uL (150-400); Red Blood Cell Count 3.64 X10^6/uL (4.0-5.2); Red Cell Distribution Width 17.9 % (11.6-14.8); White Blood Cell Count 25.2 X10^3/uL (4.5-11.0)
[2018-03-25 05:45] LABS: Alanine Aminotransferase 36 IU/L (9-52); Albumin 2.4 g/dL (3.5-5.0); Alkaline Phosphatase 105 U/L (38-126); Aspartate Aminotransferase 55 IU/L (14-36); Bilirubin Total 0.7 mg/dL (0.2-1.3); Blood Urea Nitrogen 11 mg/dL (7-17); Calcium 7.6 mg/dL (8.4-10.2); Carbon Dioxide 31 mmol/L (22-32); Chloride 100 mmol/L (98-107); Estimated Glomerular Filt Rate > 60.0 mL/min (>60); Globulin 2.5 g/dL (1.7-4.1); Glucose 118 mg/dL (80-110); HEMOLYSIS < 15 (0-50); Magnesium 1.8 mg/dL (1.6-2.3); Potassium 3.2 mmol/L (3.4-5.1); Sodium 136 mmol/L (137-145); Total Protein 4.9 g/dL (6.3-8.2)
[2018-03-25] MEDS: PIPERACILLIN-TAZO 3.375 GM/50 ML FROZ.PIGGY IV ×4 (06:11→23:49)
[2018-03-25] MEDS: SODIUM CHLORIDE 0.9% FLUSH 10 ML IV ×2 (08:34→21:01)
[2018-03-25] MEDS: ENOXAPARIN 40 MG/0.4 ML SYRINGE SUBCUT (08:34)
[2018-03-25] MEDS: POTASSIUM CHLORIDE 40 MEQ in SODIUM CHLORIDE 0.9% 500 ML 130 ML IV (09:04)
--- NOTE | 2018-03-25 10:58 | PT.IPTN ---
Current Diagnoses Sepsis, unspecified organism (03/22/18) Surgery Performed Operation Date: 03/22/18 16:15 Actual Procedures p Exploratory Laparotomy, small bowel resection with ileocolic anastomosis - Senthil Bright MD Physical Therapy Treatment Note Physical Therapy Current Condition Current Condition Evaluation Date 03/23/18 Treatment Diagnosis abdominal pain s/p ex. lap. small bowel resection, impaired mobility Onset Date 03/22/18 Precautions Abdominal Surgery Precautions Log Roll Lifting Restrictions Gait Belt above Incisional Area Other Precautions CHRISTINA drain, blount catheter, NG tube, thoraic epidural Subjective Physical Therapy Visit Type Type Treatment Note Visit Start Time 10:15 Visit Stop Time 10:50 Total Visit Minutes 35 Physical Therapy Visit Comments Patient Comments Pt reports doing well, mouth is really dry. Therapy Pain Assessment Pain When Pain Assessed At Rest Pain Present Pain Present Pain Reported Location Bilateral Lower Back Intensity 6 Scale Used Numeric (1 - 10) Pain Management Techniques Modification of Treatment Re-positioning PT-Bed Mobility Assessment Rolling Type of Rolling Log Rolling Roll to Left Level of Assist Contact Guard Assistance 1 Person Assistance Supine to Sit Supine to Sit Contact Guard Assistance 1 Person Assistance Head of Bed Elevated Bedrails Scooting Scooting to Edge of Bed Contact Guard Assistance PT-Transfer Assessment Sit to and From Stand Sit to and from Stand Minimal Assistance 2 Person Assistance Use of Upper Extremities Equipment Transfer Assistive Device Gait Belt Front Wheeled Walker Transfers Transfer Destination Chair Transfer Technique walked a few steps Transfer Ability Level of Assist Contact Guard Assistance 2 Person Assistance Use of Upper Extremities Comments Mobility Comments Pt able to complete bed mobility with only CGA, but lots of cues for technique and a SIGNIFICANT amount of extra time (partly due to fatigue, partly due to anxiety). Pt only needing min A to stand up from bed, then was CGA for static stance. Two person assist only needed to help with managing multiple lines. Gait Assessment Gait Gait Assistance Required: Contact Guard Assist 2 Person Assist Distance (Feet) 5 Assistive Devices Assistive Device Gait Belt Front Wheeled Walker Gait Deviations General Gait Pattern Decreased Stride Length Decreased Feet Clearance Flexed Trunk Wide Based Gait Factors Limiting Gait Function Factors Limiting Gait Function Decreased Activity Tolerance Decreased Strength Pain Poor Balance Comments Gait Comments Pt able to take several steps forward before running out of slack on the ng tube. Steps were extremely slow, short, and wide, pt stayed crouched foward. Despite this pt only needed CGA with use of FWW. 2nd person needed only for help managing IV pole. Stair Climbing Assessment Comments Stair Climbing Comments not assessed PT-Balance Assessment Sitting Balance and Reactions Static Sitting Balance Ability Normal Dynamic Sitting Balance Ability Fair Standing Balance and Reactions Static Standing Balance Ability Good Dynamic Standing Balance Ability Fair Device Used FWW Orientation Orientation/Cognition Level of Alertness Alert Language Function Ability No Deficits Noted Safety Awareness Understands Safety Issues Memory Description No Deficits Noted Strength Comments Strength Comments able to PF/DF B feet, assist with knee flexion for log roll Coordination Assessment Gross Coordination Gross Coordination WNL Sensation Assessment Sensation Gross Sensation WNL Muscle Tone Muscle Tone WNL Yes PT Summary Assessment and Plan Potential Rehabilitation Potential Good Status of Condition at Evaluation Evolving Summary Impairments Pain Strength Balance Cognition Bed Mobility Transfers Gait Activity Tolerance Progress Towards Goals Progressing Toward Goals Slow Progress due to Pain Slow Progress due to Activity Tolerance Assessment Summary Pt is POD#3 ex lap, still NPO and with epidural in place. Pt able to do more with less assist today, however, pt is very slow and needs lots of cues for technique. Original recommendation was for home w assist from SO, however, pt's progress has been quite slow. Recommendation is being changed to d/c to SNF rehab as pt has good potential for functional improvement but will really benefit from the daily skilled therapies offered at a SNF. Pt still has potential for progression to home, will continue to assess. Goals Bed Mobility Goal Contact Guard Assistance Transfer Goal Standby Assistance Gait Goal Standby Assistance Gait Distance 50 Other Goals up/down 2 steps with CGA and no rails Days to Meet Goals 3 Frequency of Treatment Frequency Of Treatment Twice a Day Treatment Plan Physical Therapy Treatment Plan Bed Mobility Training Transfer Training Gait Training Therapeutic Exercise Balance Retraining Discharge Planning Neuromuscular Re-ed Other Recommendations and Next Treatment progress walking and transfers Focus as able Recommendations To Nursing Amount of Assist Needed 2 Person Assist Discharge Recommendations PT Discharge Recommendations SNF Rehab Other Discharge Recommendations might progress to home with and HHPT, will continue to assess.
[2018-03-25] MEDS: FLUCONAZOLE 200 MG/100 ML PIGGYBACK 100 MG IV (12:44)
[2018-03-25] MEDS: SODIUM CHLORIDE 0.9% EPIDURAL (13:28)
[2018-03-25] MEDS: FENTANYL EPIDURAL (13:28)
[2018-03-25] MEDS: BUPIVACAINE 0.5% EPIDURAL (13:28)
--- NOTE | 2018-03-25 15:36 | PT.IPTN ---
Current Diagnoses Sepsis, unspecified organism (03/22/18) Surgery Performed Operation Date: 03/22/18 16:15 Actual Procedures p Exploratory Laparotomy, small bowel resection with ileocolic anastomosis - Senthil Bright MD Physical Therapy Treatment Note Physical Therapy Current Condition Current Condition Evaluation Date 03/23/18 Treatment Diagnosis abdominal pain s/p ex. lap. small bowel resection, impaired mobility Onset Date 03/22/18 Precautions Abdominal Surgery Precautions Log Roll Lifting Restrictions Gait Belt above Incisional Area Other Precautions CHRISTINA drain, blount catheter, NG tube, thoraic epidural Subjective Physical Therapy Visit Type Type Treatment Note Visit Start Time 14:55 Visit Stop Time 15:35 Total Visit Minutes 40 Physical Therapy Visit Comments Patient Comments Pt reports doing well, motivated to participate, willing to get up out of bed again. Therapy Pain Assessment Pain When Pain Assessed At Rest Pain Present Pain Present Pain Reported PT-Bed Mobility Assessment Supine to Sit Supine to Sit Minimal Assistance 1 Person Assistance Head of Bed Elevated Bedrails Scooting Scooting to Edge of Bed Contact Guard Assistance PT-Transfer Assessment Sit to and From Stand Sit to and from Stand Minimal Assistance 2 Person Assistance Use of Upper Extremities Equipment Transfer Assistive Device Gait Belt Front Wheeled Walker Comments Mobility Comments Pt needing more assist this time for bed mobility, still unable to truly perform log rolling, still very slow with all movements but determined to do as much by herself as possible. Gait Assessment Gait Gait Assistance Required: Contact Guard Assist 2 Person Assist Distance (Feet) 10 Assistive Devices Assistive Device Gait Belt Front Wheeled Walker Gait Deviations General Gait Pattern Decreased Stride Length Decreased Feet Clearance Flexed Trunk Wide Based Gait Factors Limiting Gait Function Factors Limiting Gait Function Decreased Activity Tolerance Decreased Strength Pain Poor Balance Comments Gait Comments Pt able to walk further, still most limited by constraints of multiple lines. Stair Climbing Assessment Comments Stair Climbing Comments not assessed PT-Balance Assessment Sitting Balance and Reactions Static Sitting Balance Ability Normal Dynamic Sitting Balance Ability Fair Standing Balance and Reactions Static Standing Balance Ability Good Dynamic Standing Balance Ability Fair Device Used FWW Orientation Orientation/Cognition Level of Alertness Alert Language Function Ability No Deficits Noted Safety Awareness Understands Safety Issues Memory Description No Deficits Noted Strength Comments Strength Comments able to PF/DF B feet, assist with knee flexion for log roll Coordination Assessment Gross Coordination Gross Coordination WNL Sensation Assessment Sensation Gross Sensation WNL Muscle Tone Muscle Tone WNL Yes Physical Therapy Treatment Other Treatments Other Treatment Performed seated press ups from EOB x 10 , standing marching in place, heel slides x 5 each leg, ankle pumps x 10 PT Summary Assessment and Plan Potential Rehabilitation Potential Good Status of Condition at Evaluation Evolving Summary Impairments Pain Strength Balance Cognition Bed Mobility Transfers Gait Activity Tolerance Progress Towards Goals Progressing Toward Goals Slow Progress due to Pain Slow Progress due to Activity Tolerance Assessment Summary Pt needing more assist with bed mobility today, more resistant to cues for technique as well. Pt was able to walk further but still limited by constraints of multiple lines. Pt could likely walk further than what she's able to do now. Anticipate pt's overall status will continue to improve with ongoing medical and therapy interventions, however, continue to recommend transition to SNF once medically ready. Goals Bed Mobility Goal Contact Guard Assistance Transfer Goal Standby Assistance Gait Goal Standby Assistance Gait Distance 50 Other Goals up/down 2 steps with CGA and no rails Days to Meet Goals 3 Frequency of Treatment Frequency Of Treatment Twice a Day Treatment Plan Physical Therapy Treatment Plan Bed Mobility Training Transfer Training Gait Training Therapeutic Exercise Balance Retraining Discharge Planning Neuromuscular Re-ed Other Recommendations and Next Treatment bed mobility, detach NG Focus suction and walk into hallway Recommendations To Nursing Amount of Assist Needed 2 Person Assist Discharge Recommendations PT Discharge Recommendations SNF Rehab Other Discharge Recommendations might progress to home with and HHPT, will continue to assess.
--- NOTE | 2018-03-25 17:38 | PC.NURSE ---
Wound Ostomy Nurse Note Maria Dolores sleeping yet easily aroused. She states she feels better than yesterday. She seems too sleepy to do any teaching this evening. I did return her husbands call, but it went to voice mail. I will call him again tomorrow and see about setting up a time to meet him and go over some ostomy teaching. Her stoma is edematous and pink. There is dark green liquid effluent. Her midline dressing is dry and intact. She has a CHRISTINA drain draining serosanguenous drainage. She has an [place] tube to wall suction. Her blount cath is draining clear yellow urine. She still has an epidural for pain control. I will touch base with her and will see Maria Dolores tomorrow.
[2018-03-25] MEDS: LYTES IV (17:48)
[2018-03-25] MEDS: MAGNESIUM SULFATE IV (17:48)
[2018-03-25] MEDS: CALCIUM IV (17:48)
[2018-03-25] MEDS: [UNRECOGNIZED DRUG - OTHER] IV (17:48)
[2018-03-25] MEDS: DEXT IV (17:48)
[2018-03-25] MEDS: FAT EMULSIONS 50 GM/250 ML EMULSION IV (17:48)
--- NOTE | 2018-03-25 18:03 | PC.NURSE ---
Addendum entered by Marilyn William R.N. 03/25/18 19:26: 1920 - Pt tearful. States that she wants to go home. Supportive at bedside. Reoriented to situation and treatment plan. Reassurance and comfort measures provided. Pt reports fatigue. Dr. Bright rounding on pt. Orders obtained. Original Note: Assumed care of pt from Imelda CASTRO, thony TPN, pt awakened, Disoriented and agitated. States that she wants a muck miner and that we cannot hold her against her will. Attempt to reassure pt and reorient to place and situation. Epidural infusing at 8ml/hr. Drsg intact. Abd drsg intact. Bed alarm on.
--- NOTE | 2018-03-25 19:12 | PM.PNPO.1 ---
Subjective Date Patient Seen: 03/25/18 Time Patient Seen: 08:12 Interval history: Patient complains of pain from the NG tube in would really like to have it removed. No real ostomy output. Abdominal pain is well controlled however. Exam Vital Signs (past 8 hours): - 03/25/18 12:25 03/25/18 15:53 03/25/18 15:59 Temperature 98.5 F 97.0 F L Pulse Rate 90 92 H Respiratory Rate 14 19 Blood Pressure 127/87 156/99 H Pulse Oximetry 98 94 97 Oxygen Delivery Method Room Air Oxygen Flow Rate 0 Narrative Exam Narrative: Lungs clear heart regular rate and rhythm abdomen is scaphoid soft. Ostomy viable. Objective Labs Result Diagrams: 03/25/18 05:00 03/25/18 05:00 Labs: Laboratory Results - last 24 hr 03/25/18 03/25/18 05:00 05:00 WBC 25.2 H RBC 3.64 L Hgb 10.6 L Hct 31.6 L MCV 86.9 MCH 29.2 MCHC 33.6 RDW 17.9 H Plt Count 170 Neut % (Auto) 68.7 Lymph % (Auto) 29.0 [place] % (Auto) 2.0 L Eos % (Auto) 0.2 L Baso % (Auto) 0.1 Neut # (Auto) 37023 H Sodium 136 L Potassium 3.2 L Chloride 100 Carbon Dioxide 31 BUN 11 Creatinine 0.50 L Estimated GFR > 60.0 BUN/Creatinine Ratio 22.0 Glucose 118 H Calcium 7.6 L Magnesium 1.8 Total Bilirubin 0.7 AST 55 H ALT 36 Alkaline Phosphatase 105 D Total Protein 4.9 L Albumin 2.4 L Globulin 2.5 Albumin/Globulin Ratio 1.0 Assessment & Plan Post-op Postoperative Procedures Operation Date: 03/22/18 16:15 Actual Procedures Side Surgeon p Exploratory Laparotomy, small bowel resection with ileocolic anastomosis Senthil Bright MD Postoperative day: 3 Postoperative status: doing well Postoperative status narrative: Overall doing all right. Postoperative plan narrative: Will continue TPN. Continue broad-spectrum antifungal and antibiotic. Continue DVT prophylaxis. Continue epidural as long as possible. X-rays in the morning in the hopes that I can get her NG tube out. Time Spent With Patient 25 - 35 minutes
--- NOTE | 2018-03-25 21:09 | PC.NURSE ---
Addendum entered by Brynn Prajapati R.N. 03/25/18 21:13: 1950 at bedside w/pt, pt is anxious, crying. States she just feels afraid and wants to go home. Discussed w/pt condition and healing process etc. pt seems to understand. Dr. Bright in to see pt. Orders received to D/C NG and Ativan Q6H ordered and promoting sleep tonight is planned. NG removed w/o difficulty and intact. Original Note: Gem note: Resumed care of pt @ 1900 POD 3 bowel resection, pt awake, confused anxious and angry. Wants to go home, spoke to and he is on his way in. Pt denies pain except for NG tube irritation and right ear discomfort. VSS. TPN/Lipids, NPO. ABD dsg CDI, CHRISTINA patent, ostomy WNL, no BT's audible, no gas noted. Lester remains intact. Pt has been OOB twice w/PT and tolerated activity. F/C no tele.
[2018-03-25] MEDS: LORazepam 2 MG/ML SYRINGE 0.5 MG IV (21:29)
[2018-03-26] VITALS (10 sets, daily range): BP systolic 136–160; BP diastolic 86–103; PULSE 85–104; RESP 14–18; TEMP 36.2–37.7; O2SAT 92–96
[2018-03-26] MEDS: LACTATED RINGERS 1,000 ML 60 ML IV (01:42)
[2018-03-26] MEDS: metroNIDAZOLE 500 MG/100 ML PIGGYBACK 100 MG IV ×4 (01:44→20:20)
[2018-03-26 04:58] LABS: Add Manual Diff / Slide Review NO; Basophils Percent Auto 0.4 % (0-2); Eosinophils Percent Auto 0.7 % (2-4); Hemoglobin 10.6 g/dL (12.0-16.0); Lymphocytes Percent Auto 37.5 % (25-40); Mean Corpuscular HGB Conc 33.2 % (30-36); Mean Corpuscular Hemoglobin 28.8 PG (26-34); Mean Corpuscular Volume 86.6 fL (80-100); Monocytes Percent Auto 2.8 % (3-14); Neutrophils Absolute Auto 12300 /uL (3000-5900); Neutrophils Percent Auto 58.6 % (50-75); Platelet Count 176 X10^3/uL (150-400); Red Cell Distribution Width 17.9 % (11.6-14.8)
[2018-03-26 05:04] LABS: BUN Creatinine Ratio 22.5 (6-22); Blood Urea Nitrogen 9 mg/dL (7-17); Calcium 7.6 mg/dL (8.4-10.2); Carbon Dioxide 32 mmol/L (22-32); Chloride 99 mmol/L (98-107); Estimated Glomerular Filt Rate > 60.0 mL/min (>60); Glucose 116 mg/dL (80-110); HEMOLYSIS < 15 (0-50); Magnesium 1.8 mg/dL (1.6-2.3); Potassium 2.9 mmol/L (3.4-5.1); Sodium 135 mmol/L (137-145)
[2018-03-26] MEDS: PIPERACILLIN-TAZO 3.375 GM/50 ML FROZ.PIGGY IV ×3 (05:40→17:51)
--- NOTE | 2018-03-26 06:00 | DI.RAD.S_ITS ---
PROCEDURE: XR ABDOMEN MIN 2V INDICATIONS: follow up to assess gas pattern post intestinal resection/ileostomy TECHNIQUE: 2 views of the abdomen were acquired. COMPARISON: [facility], CT, CT ABDOMEN PELVIS W CON, 03/22/2018, 13:18. [facility], CR, XR ABDOMEN MIN 2V, 02/17/2018, 8:34. FINDINGS: Surgical changes and devices: Surgical drain right lower quadrant, apparent ostomy device just above the area of the surgical drain. Bowel: No pneumoperitoneum. The bowel gas pattern is normal. Soft tissues: No masses; visualized solid organ contours appear normal in size. No suspicious abdominal calcifications. Bones: No suspicious bony abnormalities. IMPRESSION: Postsurgical changes as discussed, with surgical drain and ostomy site right lower quadrant. No sign of intestinal obstruction or perforation at this time. Dictated by: Luis Alfredo Helm M.D. on 03/26/2018 at 9:05 Approved by: Luis Alfredo Helm M.D. on 03/26/2018 at 9:07
[2018-03-26] MEDS: SODIUM CHLORIDE 0.9% FLUSH 10 ML IV ×2 (08:31→20:28)
[2018-03-26] MEDS: POTASSIUM CHLORIDE 40 MEQ in SODIUM CHLORIDE 0.9% 500 ML 130 ML IV (08:31)
[2018-03-26 09:20] LABS: Procalcitonin 1.32 ng/mL (<0.5)
[2018-03-26] MEDS: FLUCONAZOLE 200 MG/100 ML PIGGYBACK 100 MG IV (09:53)
--- NOTE | 2018-03-26 11:35 | PT.IPTN ---
Current Diagnoses Sepsis, unspecified organism (03/22/18) Surgery Performed Operation Date: 03/22/18 16:15 Actual Procedures p Exploratory Laparotomy, small bowel resection with ileocolic anastomosis - Senthil Bright MD Physical Therapy Treatment Note M2 PT-IP Current Condition Start: 03/23/18 13:31 Freq: Status: Active Protocol: Document 03/23/18 13:31 RCC (Rec: 03/23/18 13:43 RCC [id number]) Physical Therapy Current Condition Current Condition Evaluation Date 03/23/18 Treatment Diagnosis abdominal pain s/p ex. lap. small bowel resection, impaired mobility Onset Date 03/22/18 Precautions Abdominal Surgery Precautions Log Roll Lifting Restrictions Gait Belt above Incisional Area Other Precautions CHRISTINA drain, blount catheter, NG tube, thoraic epidural M3 PT-IP Subjective Start: 03/23/18 13:31 Freq: Status: Active Protocol: Document 03/26/18 11:35 AB (Rec: 03/26/18 12:49 AB [id number]) Subjective Physical Therapy Visit Type Type Treatment Note Visit Start Time 11:35 Visit Stop Time 12:12 Total Visit Minutes 42 Number of CLAM GROWER Visits 0 Physical Therapy Visit Comments Patient Comments pt agreeable to get up Therapy Pain Assessment Pain When Pain Assessed At Rest Pain Present Pain Present Pain Reported Location Bilateral Lower Back Intensity 8 Scale Used Numeric (1 - 10) Abdomen Intensity 8 Scale Used Numeric (1 - 10) Pain Management Techniques Timing of Activity with Medications M4 PT-IP Mobility and Gait Start: 03/23/18 13:31 Freq: Status: Active Protocol: Document 03/26/18 11:35 AB (Rec: 03/26/18 12:49 AB [id number]) PT-Bed Mobility Assessment Supine to Sit Supine to Sit Maximum Assistance Head of Bed Elevated PT-Transfer Assessment Sit to and From Stand Sit to and from Stand Maximum Assistance 1 Person Assistance Equipment Transfer Assistive Device Gait Belt Front Wheeled Walker Orthotic/Prosthetic Devices or Brace: No Transfers Transfer Destination Chair Transfer Technique Stand Step Pivot Transfer Ability Level of Assist Moderate Assistance 1 Person Assistance Comments Mobility Comments attempted log roll bed mobility supine to sit and pt unable to complete despite max A provided due to c/o increase abdominal pain preventing pt to roll on her side. opted to elevate HOB to sitting position to assist pt at this time and required max A to scoot to EOB. pt completed sit to stand with x 2 attempts and max cues for techniques. pt required max A to maintain standing initially and cues for proper posture and postiining. pt noted to have increasre lateral side bending/leaning to the R. Gait Assessment Gait Gait Assistance Required: Moderate Assistance Distance (Feet) 12 Able to Maintain Weight Bearing Status Yes During Gait Assistive Devices Assistive Device Gait Belt Front Wheeled Walker Gait Deviations General Gait Pattern Decreased Stride Length Decreased Feet Clearance Factors Limiting Gait Function Factors Limiting Gait Function Decreased Activity Tolerance Decreased Strength Limited Range of Motion Pain Poor Balance Poor Safety Awareness Comments Gait Comments pt completed ambulation using FWW mod A and cues ~ 12 ft requiring assist with weight shifting and cues. M5 PT-IP Objective Assessments Start: 03/23/18 13:31 Freq: Status: Active Protocol: Document 03/23/18 13:31 RCC (Rec: 03/23/18 13:43 RCC [id number]) Orientation Orientation/Cognition Level of Alertness Alert Language Function Ability No Deficits Noted Safety Awareness Understands Safety Issues Memory Description No Deficits Noted Strength Comments Strength Comments able to PF/DF B feet, assist with knee flexion for log roll Coordination Assessment Gross Coordination Gross Coordination WNL Sensation Assessment Sensation Gross Sensation WNL Muscle Tone Muscle Tone WNL Yes M6 PT-IP Treatment Start: 03/23/18 13:31 Freq: Status: Active Protocol: Document 03/26/18 11:35 AB (Rec: 03/26/18 12:49 AB [id number]) Physical Therapy Treatment Education Education Provided Precautions Safety M7 PT-IP Assessment and Plan Start: 03/23/18 13:31 Freq: Status: Active Protocol: Document 03/26/18 11:35 AB (Rec: 03/26/18 12:49 AB [id number]) PT Summary Assessment and Plan Potential Rehabilitation Potential Fair Summary Impairments Pain ROM Strength Balance Coordination Sensation Tone Cognition Bed Mobility Transfers Gait Activity Tolerance Progress Towards Goals Slow Progress due to Pain Slow Progress due to Medical Issues Slow Progress due to Activity Tolerance Assessment Summary pt requiring one person mod to max A with mobility and will require SNF rehab to improve overall strength and mobility. pt with decrease activity tolerance affecting function. Goals Bed Mobility Goal Contact Guard Assistance Transfer Goal Standby Assistance Gait Goal Standby Assistance Gait Distance 50 Other Goals up/down 2 steps with CGA and no rails Days to Meet Goals 3 Frequency of Treatment Frequency Of Treatment Twice a Day Treatment Plan Physical Therapy Treatment Plan Bed Mobility Training Transfer Training Gait Training Therapeutic Exercise Balance Retraining Discharge Planning Neuromuscular Re-ed Other Recommendations and Next Treatment bed mobility, detach NG Focus suction and walk into hallway Recommendations To Nursing Amount of Assist Needed 2 Person Assist Discharge Recommendations PT Discharge Recommendations SNF Rehab
[2018-03-26] MEDS: KETOROLAC 15 MG/ML VIAL IV ×2 (13:33→21:37)
--- NOTE | 2018-03-26 14:43 | PC.NURSE ---
Day Shift Note Alert and oriented to self and place, required reorientation to time, mentation improved from yesterday. Very weak but able to transfer 1 person assist with FWW. BTs and flatus absent. On dermatome assessment pt reported no change in sensation to abdomen, denied pain while at rest but reported increase with activity. Epidural stopped at [address] Logan. No change in pain or sensation when reassessed in afternoon - updated to Dr. Logan and order received to d/c epidural. Epidural d/c'd at 1240 with catheter tip intact, pt tolerated well. Order received from Dr. Bright for Toradol and morphine - toradol administered with good effect. Currently in bed with call light within reach.
--- NOTE | 2018-03-26 15:53 | CM.DPC ---
DCP: continued: case received, EMR reviewed and discussed case briefly earlier today with Dr. Bright. Pt is s/c emergent bowel resection. Has new ostomy, NG to suction is in and pt on TPN. painter and body mechanic apprentice Stephanie T/working with Dr. Bright and his team is seeing pt for teach. Pt is weak at this point. Dr. Bright says he is unsure at this point if pt will be able to d/c directly to home or will need a snf setting. He has today signed Face/Face in case pt is able to go directly home with her and she will need HH RN to partner on the ostomy management in the home setting. P: DCP team to check in to see if PT/OT are involved and discuss d/c issues and options. SNF stay vs HH look like the options at this time...
--- NOTE | 2018-03-26 16:25 | PT.IPTN ---
Current Diagnoses Sepsis, unspecified organism (03/22/18) Surgery Performed Operation Date: 03/22/18 16:15 Actual Procedures p Exploratory Laparotomy, small bowel resection with ileocolic anastomosis - Senthil Bright MD Physical Therapy Treatment Note M2 PT-IP Current Condition Start: 03/23/18 13:31 Freq: Status: Active Protocol: Document 03/23/18 13:31 RCC (Rec: 03/23/18 13:43 RCC [id number]) Physical Therapy Current Condition Current Condition Evaluation Date 03/23/18 Treatment Diagnosis abdominal pain s/p ex. lap. small bowel resection, impaired mobility Onset Date 03/22/18 Precautions Abdominal Surgery Precautions Log Roll Lifting Restrictions Gait Belt above Incisional Area Other Precautions CHRISTINA drain, blount catheter, NG tube, thoraic epidural M3 PT-IP Subjective Start: 03/23/18 13:31 Freq: Status: Active Protocol: Document 03/26/18 16:25 (Rec: 03/26/18 16:44 [id number]) Subjective Physical Therapy Visit Type Type Treatment Note Visit Start Time 03:03 Visit Stop Time 03:35 Total Visit Minutes 32 Physical Therapy Visit Comments Patient Comments Feeling better than earlier today, but refuses OOB with PT today. Pt is agreeable to do some in-bed exercises today. Patient Goals Continues to plan to go home at d/c with . Protocol: Document 03/26/18 16:25 (Rec: 03/26/18 16:44 [id number]) Physical Therapy Treatment Exercises Exercises Ankle Pumps Gluteal Sets Quad Sets Heel Slides Supine Hip Abduction Education Education Provided Safety Other Treatments Other Treatment Performed Ankle pumps X20, glute setsX10 , quad setsX10, Heel slides X10, Supine hip abd X10 Pt education in need to continue attempts at OOB and amb to build strength to aid recovery and return to function. M7 PT-IP Assessment and Plan Start: 03/23/18 13:31 Freq: Status: Active Protocol: Document 03/26/18 16:25 (Rec: 03/26/18 16:44 [id number]) PT Summary Assessment and Plan Potential Rehabilitation Potential Good Status of Condition at Evaluation Evolving Summary Impairments Pain Strength Balance Bed Mobility Transfers Gait Activity Tolerance Progress Towards Goals Progressing Toward Goals Slow Progress due to Pain Slow Progress due to Activity Tolerance Assessment Summary POD#4 small bowel resection. Pt states feeling better but refuses OOB or bed mob with PT this afternoon,however participated with PT for in-bed exercises. Likely she still needs max A for bed mob and min to mod A for transfers and ambulation. Continue to recommend d/c to SNF due to current level assist and will need continued PT intervention to improve return of strength and fuction. Goals Bed Mobility Goal Contact Guard Assistance Transfer Goal Standby Assistance Front Wheeled Walker Gait Goal Standby Assistance Front Wheel Walker Gait Distance 50 Other Goals up/down 2 steps with CGA and no rails Days to Meet Goals 3 Frequency of Treatment Frequency Of Treatment Twice a Day Treatment Plan Physical Therapy Treatment Plan Bed Mobility Training Transfer Training Gait Training Therapeutic Exercise Balance Retraining Discharge Planning Neuromuscular Re-ed Other Recommendations and Next Treatment Special attention to lines. Focus Need assist to follow with IV pole. Tx focus next session on OOB and short distance amb using FWW. Recommendations To Nursing Amount of Assist Needed 2 Person Assist Discharge Recommendations PT Discharge Recommendations SNF Rehab Equipment Needed for Home Before FWW if pt is going home Discharge
[2018-03-26] MEDS: ENOXAPARIN 40 MG/0.4 ML SYRINGE SUBCUT (17:06)
[2018-03-26] MEDS: MORPHINE 4 MG/ML INJ IV (17:14)
[2018-03-26] MEDS: DEXT IV (17:33)
[2018-03-26] MEDS: MAGNESIUM SULFATE IV (17:33)
[2018-03-26] MEDS: [UNRECOGNIZED DRUG - OTHER] IV (17:33)
[2018-03-26] MEDS: LYTES IV (17:33)
[2018-03-26] MEDS: CALCIUM IV (17:33)
[2018-03-26] MEDS: FAT EMULSIONS 50 GM/250 ML EMULSION IV (17:34)
--- NOTE | 2018-03-26 20:02 | PC.NURSE ---
Addendum entered by Marilyn William R.N. 03/26/18 22:09: 2030 - Drsg change to the mid-line drsg change. Pt tolerated well. Pt requesting to get out of bed and walk to sink for HS care. Once up and ambulating pt reports feeling the need to have a BM. Chelsie-care without rectal discharge. Assisted to sit on the BSC. Pt then reports feeling nauseated. Blue bag provided. Pt expectorating some sputum, no emesis. Zofran given. Pt reports feeling some abd cramping. Able to sit at sink and do own oral care. Assist back to bed with FWW and gait belt. Pt reports pain once back in bed. Toradol given as ordered. Abd drsg intact, CHRISTINA with scant serous drainage. Ostomy with dark green effluent. Positioned for comfort. Call light in reach. Original Note: 1700 - Pt finished working with therapy. Reporting pain 6 of 10. Discussed pain control option. Pt states that she would like additional pain rx. Just a little something. Pt asked for an aspirin. Reinforced NPO status. Agreeable to try a small dose of morphine. 2mg given. Monitor. Pt resting quietly. Agreeable to allow nursing students to assist with care. Call light in reach.
[2018-03-26] MEDS: LACTATED RINGERS 1,000 ML 42 ML IV (20:21)
--- NOTE | 2018-03-26 21:14 | PM.PNPO.1 ---
Subjective Date Patient Seen: 03/26/18 Time Patient Seen: 08:14 Interval history: Patient feels all right. Slept better last night without the tube in with the medication. Abdominal pain fairly well controlled. Her epidural catheter came out. Exam Vital Signs (past 8 hours): - 03/26/18 15:56 03/26/18 17:30 Temperature 98.6 F Pulse Rate 85 Respiratory Rate 17 Blood Pressure 143/86 H Pulse Oximetry 96 93 Oxygen Delivery Method Room Air Oxygen Flow Rate 0 Narrative Exam Narrative: Operative in no apparent distress. Lungs are clear. Heart regular rate and rhythm. Abdomen is less distended. Softer. Ostomy has good output now. is green in color. Objective Imaging Abdominal x-ray: My impression: Fair amount of air in the stomach but not massively distended. There are some loops of small bowel with gas in them. Pattern is more typical of a possible mild ileus than obstruction. No free air is seen. Labs Result Diagrams: 03/26/18 04:35 03/26/18 04:35 Labs: Laboratory Results - last 24 hr 03/26/18 03/26/18 03/26/18 04:35 04:35 08:25 WBC 21.0 H RBC 3.70 L Hgb 10.6 L Hct 32.0 L MCV 86.6 MCH 28.8 MCHC 33.2 RDW 17.9 H Plt Count 176 Neut % (Auto) 58.6 Lymph % (Auto) 37.5 [place] % (Auto) 2.8 L Eos % (Auto) 0.7 L Baso % (Auto) 0.4 Neut # (Auto) 32541 H Sodium 135 L Potassium 2.9 L Chloride 99 Carbon Dioxide 32 BUN 9 Creatinine 0.40 L Estimated GFR > 60.0 BUN/Creatinine Ratio 22.5 H Glucose 116 H Calcium 7.6 L Magnesium 1.8 Procalcitonin 1.32 H Assessment & Plan Post-op Postoperative Procedures Operation Date: 03/22/18 16:15 Actual Procedures Side Surgeon p Exploratory Laparotomy, small bowel resection with ileocolic anastomosis Senthil Bright MD Postoperative status narrative: Doing well. Much better than anticipated. White count is coming down again. Postoperative plan narrative: Will keep NPO except for meds for right now. Continue DVT prophylaxis. Continue TPN at 1.5 L. will need add lipids. Potassium was replaced again today and additional added to the TPN. Might be willing to start p.o. tomorrow depending on how she is doing and whether white count continues to improve. Time Spent With Patient less than 15 minutes
[2018-03-26] MEDS: ONDANSETRON 4 MG/2 ML INJ IV (21:17)
[2018-03-26] MEDS: LATANOPROST 0.005% OPHTH 2.5 ML 1 DROPS EYE-BOTH (21:19)
[2018-03-27] VITALS (11 sets, daily range): BP systolic 145–161; BP diastolic 82–98; PULSE 84–96; RESP 16–20; TEMP 36.1–37.1; O2SAT 91–98
[2018-03-27] MEDS: PIPERACILLIN-TAZO 3.375 GM/50 ML FROZ.PIGGY IV ×5 (00:40→23:34)
[2018-03-27] MEDS: metroNIDAZOLE 500 MG/100 ML PIGGYBACK 100 MG IV ×4 (01:38→20:22)
[2018-03-27] MEDS: MORPHINE 4 MG/ML INJ IV (03:23)
[2018-03-27 05:58] LABS: Add Manual Diff / Slide Review NO; Basophils Percent Auto 0.2 % (0-2); Eosinophils Percent Auto 1.1 % (2-4); Hematocrit 31.9 % (36-46); Hemoglobin 10.7 g/dL (12.0-16.0); Mean Corpuscular HGB Conc 33.5 % (30-36); Mean Corpuscular Hemoglobin 29.2 PG (26-34); Mean Corpuscular Volume 87.2 fL (80-100); Monocytes Percent Auto 4.9 % (3-14); Neutrophils Absolute Auto 11600 /uL (3000-5900); Neutrophils Percent Auto 56.8 % (50-75); Platelet Count 183 X10^3/uL (150-400); Red Blood Cell Count 3.66 X10^6/uL (4.0-5.2); Red Cell Distribution Width 17.7 % (11.6-14.8); White Blood Cell Count 20.5 X10^3/uL (4.5-11.0)
[2018-03-27 06:10] LABS: BUN Creatinine Ratio 27.5 (6-22); Blood Urea Nitrogen 11 mg/dL (7-17); Carbon Dioxide 31 mmol/L (22-32); Chloride 98 mmol/L (98-107); Estimated Glomerular Filt Rate > 60.0 mL/min (>60); Glucose 124 mg/dL (80-110); HEMOLYSIS < 15 (0-50); Magnesium 1.9 mg/dL (1.6-2.3); Potassium 3.6 mmol/L (3.4-5.1); Sodium 137 mmol/L (137-145)
[2018-03-27 06:25] LABS: Procalcitonin 0.84 ng/mL (<0.5)
[2018-03-27] MEDS: KETOROLAC 15 MG/ML VIAL IV ×2 (07:54→22:02)
[2018-03-27] MEDS: GABAPENTIN 100 MG CAPSULE 200 MG PO ×2 (07:57→21:00)
--- NOTE | 2018-03-27 09:24 | PT.IPTN ---
Current Diagnoses Sepsis, unspecified organism (03/22/18) Surgery Performed Operation Date: 03/22/18 16:15 Actual Procedures p Exploratory Laparotomy, small bowel resection with ileocolic anastomosis - Senthil Bright MD Physical Therapy Treatment Note M2 PT-IP Current Condition Start: 03/23/18 13:31 Freq: Status: Active Protocol: Document 03/23/18 13:31 RCC (Rec: 03/23/18 13:43 RCC [id number]) Physical Therapy Current Condition Current Condition Evaluation Date 03/23/18 Treatment Diagnosis abdominal pain s/p ex. lap. small bowel resection, impaired mobility Onset Date 03/22/18 Precautions Abdominal Surgery Precautions Log Roll Lifting Restrictions Gait Belt above Incisional Area Other Precautions CHRISTINA drain, blount catheter, NG tube, thoraic epidural M3 PT-IP Subjective Start: 03/23/18 13:31 Freq: Status: Active Protocol: Document 03/27/18 09:24 (Rec: 03/27/18 11:54 [id number]) Subjective Physical Therapy Visit Type Type Treatment Note Visit Start Time 09:24 Visit Stop Time 10:04 Total Visit Minutes 40 Number of DATABASE REPORTING CONSULTANT Visits 0 Physical Therapy Visit Comments Patient Comments Continues to feel better. Seems a bit confused this morning; says her is here but RN states he has not been here this morning. Pain at rest 4/10. Therapy Pain Assessment Pain When Pain Assessed At Rest Pain Present Pain Present Pain Reported Location Abdomen Intensity 4 Scale Used Numeric (1 - 10) Pain Management Techniques Timing of Activity with Medications M4 PT-IP Mobility and Gait Start: 03/23/18 13:31 Freq: Status: Active Protocol: Document 03/27/18 09:24 (Rec: 03/27/18 11:54 [id number]) PT-Bed Mobility Assessment Rolling Type of Rolling Log Rolling Level of Assist Standby Assistance Contact Guard Assistance Minimal Assistance Supine to Sit Supine to Sit Contact Guard Assistance Minimal Assistance Bedrails Sit to Supine Sit to Supine Standby Assistance Contact Guard Assistance Minimal Assistance Bedrails Scooting Scooting to Edge of Bed Standby Assistance Contact Guard Assistance Minimal Assistance Scooting Up and Down in Bed Maximum Assistance PT-Transfer Assessment Sit to and From Stand Sit to and from Stand Contact Guard Assistance Minimal Assistance Equipment Transfer Assistive Device Gait Belt Front Wheeled Walker Orthotic/Prosthetic Devices or Brace: No Transfers Transfer Destination Bed Transfer Technique Stand Step Pivot Transfer Ability Level of Assist Contact Guard Assistance Minimal Assistance 1 Person Assistance Use of Upper Extremities Comments Mobility Comments Pt able to complete majority of bed mob and transfers albeit very slowly with min verbal cues. Limited mainly by pain and deconditioning. Gait Assessment Gait Gait Assistance Required: Contact Guard Assist Minimum Assistance 1 Person Assist Distance (Feet) 100 Able to Maintain Weight Bearing Status Yes During Gait Assistive Devices Assistive Device Gait Belt Front Wheeled Walker Orthotic/Prosthetic Devices or Brace: No Gait Deviations General Gait Pattern Decreased Stride Length Decreased Feet Clearance Lateral Trunk Lean Wide Based Gait Factors Limiting Gait Function Factors Limiting Gait Function Decreased Activity Tolerance Decreased Strength Limited Range of Motion Pain Poor Balance Poor Safety Awareness Stair Climbing Assessment Comments Stair Climbing Comments Not evaluated. PT-Balance Assessment Sitting Balance and Reactions Static Sitting Balance Ability Good Dynamic Sitting Balance Ability Fair Standing Balance and Reactions Static Standing Balance Ability Fair Dynamic Standing Balance Ability Poor Device Used FWW Comments Other Balance Tests/Deviations/Treatment Not assessed. : M5 PT-IP Objective Assessments Start: 03/23/18 13:31 Freq: Status: Active Protocol: Document 03/23/18 13:31 RCC (Rec: 03/23/18 13:43 RCC [id number]) Orientation Orientation/Cognition Level of Alertness Alert Language Function Ability No Deficits Noted Safety Awareness Understands Safety Issues Memory Description No Deficits Noted Strength Comments Strength Comments able to PF/DF B feet, assist with knee flexion for log roll Coordination Assessment Gross Coordination Gross Coordination WNL Sensation Assessment Sensation Gross Sensation WNL Muscle Tone Muscle Tone WNL Yes M6 PT-IP Treatment Start: 03/23/18 13:31 Freq: Status: Active Protocol: Document 03/26/18 16:25 (Rec: 03/26/18 16:44 [id number]) Physical Therapy Treatment Exercises Exercises Ankle Pumps Gluteal Sets Quad Sets Heel Slides Supine Hip Abduction Education Education Provided Safety Other Treatments Other Treatment Performed Ankle pumps X20, glute setsX10 , quad setsX10, Heel slides X10, Supine hip abd X10 Pt education in need to continue attempts at OOB and amb to build strength to aid recovery and return to function. M7 PT-IP Assessment and Plan Start: 03/23/18 13:31 Freq: Status: Active Protocol: Document 03/27/18 09:24 (Rec: 03/27/18 11:54 [id number]) PT Summary Assessment and Plan Potential Rehabilitation Potential Good Summary Impairments Pain ROM Strength Balance Cognition Bed Mobility Transfers Gait Activity Tolerance Progress Towards Goals Slow Progress due to Pain Slow Progress due to Activity Tolerance Assessment Summary Patient day 5 post small bowel resection. Continues to progress with activity tolerance as evidenced by increase in ambulation to 100 ft using FWW CGA to min A and cues. Continues to need min to max A for bed mob and CGA to min transfers with min verbal cues for directions/ instructions. Pending family education and continued gains in patient functional status, d/c to home with 24 available assist, HH and FWW is feasible. Would need to assess steps (has 3 steps to enter home). At this time pt will still benefit from SNF rehab. Goals Bed Mobility Goal Standby Assistance Transfer Goal Standby Assistance Gait Goal Standby Assistance Gait Distance 200 Other Goals up/down 2 steps without rails Days to Meet Goals 5 Frequency of Treatment Frequency Of Treatment Twice a Day Treatment Plan Physical Therapy Treatment Plan Bed Mobility Training Transfer Training Gait Training Therapeutic Exercise Balance Retraining Discharge Planning Other Recommendations and Next Treatment Continue to progress treatment Focus to improve bed mob, transfer and gait Recommendations To Nursing Amount of Assist Needed 1 Person Assist Discharge Recommendations PT Discharge Recommendations Home with 14/01 Assist Home Health SNF Rehab Other Discharge Recommendations SNF vs home with 24/7 and home health PT Equipment Needed for Home Before FWW Discharge
[2018-03-27] MEDS: FLUCONAZOLE 200 MG/100 ML PIGGYBACK 100 MG IV (10:54)
[2018-03-27] MEDS: SODIUM CHLORIDE 0.9% FLUSH 10 ML IV (10:55)
--- NOTE | 2018-03-27 12:25 | CM.DPC ---
DCP Cont: Discussed patient's current condition with ICU nurse. Stated that patient will be here for several more days, epidural was DC'd. Will continue to evaluate if home versus prison. P; DCP to continue to assess, to be determined if home or prison would be appropriate for patient. Evelia Chen RN/[employer]
[2018-03-27] MEDS: ONDANSETRON 4 MG/2 ML INJ IV (14:37)
--- NOTE | 2018-03-27 14:57 | PT.IPTN ---
Current Diagnoses Sepsis, unspecified organism (03/22/18) Surgery Performed Operation Date: 03/22/18 16:15 Actual Procedures p Exploratory Laparotomy, small bowel resection with ileocolic anastomosis - Senthil Bright MD Physical Therapy Treatment Note M2 PT-IP Current Condition Start: 03/23/18 13:31 Freq: Status: Active Protocol: Document 03/23/18 13:31 RCC (Rec: 03/23/18 13:43 RCC [id number]) Physical Therapy Current Condition Current Condition Evaluation Date 03/23/18 Treatment Diagnosis abdominal pain s/p ex. lap. small bowel resection, impaired mobility Onset Date 03/22/18 Precautions Abdominal Surgery Precautions Log Roll Lifting Restrictions Gait Belt above Incisional Area Other Precautions CHRISTINA drain, blount catheter, NG tube, thoraic epidural M3 PT-IP Subjective Start: 03/23/18 13:31 Freq: Status: Active Protocol: Document 03/27/18 14:46 GGD (Rec: 03/27/18 14:56 GGD [id number]) Subjective Physical Therapy Visit Type Type Treatment Note Visit Start Time 14:10 Visit Stop Time 14:40 Total Visit Minutes 30 Number of WILD ANIMAL CARETAKER Visits 1 Physical Therapy Visit Comments Patient Comments Pt wants to rest, but willing to get up and walk. Therapy Pain Assessment Pain When Pain Assessed At Rest Pain Present Pain Present Pain Reported Location Abdomen Intensity 5 Scale Used Numeric (1 - 10) M4 PT-IP Mobility and Gait Start: 03/23/18 13:31 Freq: Status: Active Protocol: Document 03/27/18 14:46 GGD (Rec: 03/27/18 14:56 GGD [id number]) PT-Bed Mobility Assessment Rolling Type of Rolling Log Rolling Roll to Left Level of Assist Contact Guard Assistance Supine to Sit Supine to Sit Contact Guard Assistance Bedrails Scooting Scooting to Edge of Bed Standby Assistance PT-Transfer Assessment Sit to and From Stand Sit to and from Stand Contact Guard Assistance Use of Upper Extremities Equipment Transfer Assistive Device Gait Belt Front Wheeled Walker Orthotic/Prosthetic Devices or Brace: No Transfers Transfer Destination Chair Comments Mobility Comments Pt slow moving and needs cues. Gait Assessment Gait Gait Assistance Required: Contact Guard Assist 1 Person Assist Distance (Feet) 80 Able to Maintain Weight Bearing Status Yes During Gait Assistive Devices Assistive Device Gait Belt Front Wheeled Walker Orthotic/Prosthetic Devices or Brace: No Gait Deviations General Gait Pattern Decreased Stride Length Decreased Feet Clearance Factors Limiting Gait Function Factors Limiting Gait Function Decreased Activity Tolerance Decreased Strength Pain Poor Balance Poor Safety Awareness Comments Gait Comments Pt c/O nausea with gait, RN infromed. M5 PT-IP Objective Assessments Start: 03/23/18 13:31 Freq: Status: Active Protocol: Document 03/23/18 13:31 RCC (Rec: 03/23/18 13:43 RCC [id number]) Orientation Orientation/Cognition Level of Alertness Alert Language Function Ability No Deficits Noted Safety Awareness Understands Safety Issues Memory Description No Deficits Noted Strength Comments Strength Comments able to PF/DF B feet, assist with knee flexion for log roll Coordination Assessment Gross Coordination Gross Coordination WNL Sensation Assessment Sensation Gross Sensation WNL Muscle Tone Muscle Tone WNL Yes M6 PT-IP Treatment Start: 03/23/18 13:31 Freq: Status: Active Protocol: Document 03/26/18 16:25 (Rec: 03/26/18 16:44 [id number]) Physical Therapy Treatment Exercises Exercises Ankle Pumps Gluteal Sets Quad Sets Heel Slides Supine Hip Abduction Education Education Provided Safety Other Treatments Other Treatment Performed Ankle pumps X20, glute setsX10 , quad setsX10, Heel slides X10, Supine hip abd X10 Pt education in need to continue attempts at OOB and amb to build strength to aid recovery and return to function. M7 PT-IP Assessment and Plan Start: 03/23/18 13:31 Freq: Status: Active Protocol: Document 03/27/18 14:46 GGD (Rec: 03/27/18 14:56 GGD [id number]) PT Summary Assessment and Plan Summary Assessment Summary Pt is slow to move. She needs cues for log roll techinque and bed mobility. She prefer to do as much on her own. She needs single step cues and time. Frequency of Treatment Frequency Of Treatment Twice a Day Treatment Plan Other Recommendations and Next Treatment Continue to progress treatment Focus to improve bed mob, transfer and gait Recommendations To Nursing Amount of Assist Needed 1 Person Assist
--- NOTE | 2018-03-27 16:25 | PC.NURSE ---
Wound Ostomy Nurse Note I called Ned this morning so he would meet me with Maria Dolores to go over some ostomy teaching. Ned was waiting for me. Maria Dolores was in bed awake and not as confused as the past few days. I explained the pouching appliance to them and reviewed some anatomy. Then they watched me change the pouching appliance. I removed the appliance. The stoma is edematous, moist, pink. The bridge is intact. The reno-stomal skin is intact without redness. The stoma is producing dark green and bile colored liquid effluent. I placed a two piece Convatec flat moldable wafer 57mm and a clear non-filtered pouch with an adaptor. I also changed the midline wound dressing. There was a moderate amount of serous drainage on the packing but nothing on the secondary dressing. I placed one 4x4 moist with Normal Saline into the proximal portion of the wound and 1/2 of a 2x2 moist with Normal Saline into the distal portion of the wound. Then covered with 3 4x4's folded and covered with a tagaderm to keep in place. Maria Dolores tolerated both procedures well and her did great watching the procedures and seems to have a good grasp of the ostomy care. He states that he has read all the material that I have left regarding ileostomy care. I will meet up with him tomorrow to continue teaching. Maria Dolores no longer has an NG tube and she states she feels better not having it in place. Her CHRISTINA drain is to bulb suction and she continues to have a blount catheter. Maria Dolores states she was up walking around with assistance today. Ned and Maria Dolores live in a one level home. We did discuss discharge planning as far as have Home Health Services to help with ostomy care, wound care and continued strength building. They will be speaking with discharge planning in the days to come. I will return tomorrow to continue ostomy teaching.
[2018-03-27] MEDS: ENOXAPARIN 40 MG/0.4 ML SYRINGE SUBCUT (17:12)
[2018-03-27] MEDS: CALCIUM IV (17:28)
[2018-03-27] MEDS: LYTES IV (17:28)
[2018-03-27] MEDS: FAT EMULSIONS 50 GM/250 ML EMULSION IV (17:28)
[2018-03-27] MEDS: MAGNESIUM SULFATE IV (17:28)
[2018-03-27] MEDS: DEXT IV (17:28)
[2018-03-27] MEDS: [UNRECOGNIZED DRUG - OTHER] IV (17:28)
--- NOTE | 2018-03-27 18:30 | P.PN_ITS ---
Subjective Date Patient Seen: 03/27/18 Time Patient Seen: 18:26 Interval history: Patient is feeling well. Has a little bit of pain in her incision when she coughs. Tolerating liquids but not taking large amounts. Drainage has decreased. Still putting out a lot of urine. Exam Vital Signs (past 8 hours): - 03/27/18 11:57 03/27/18 16:03 03/27/18 16:06 Temperature 98.3 F 98.1 F Pulse Rate 84 85 Respiratory Rate 18 18 Blood Pressure 154/82 H 146/95 H Pulse Oximetry 95 98 98 03/27/18 16:11 Temperature Pulse Rate Respiratory Rate Blood Pressure Pulse Oximetry 98 Oxygen Delivery Method Room Air Oxygen Flow Rate 0 Narrative Exam Narrative: Lungs are clear. Abdomen is scaphoid. Ostomy is healthy the bar still in place. Good output from the ostomy. Green liquid. Objective Labs Result Diagrams: 03/27/18 05:15 03/27/18 05:15 Labs: Laboratory Results - last 24 hr 03/27/18 03/27/18 03/27/18 05:15 05:15 05:15 WBC 20.5 H RBC 3.66 L Hgb 10.7 L Hct 31.9 L MCV 87.2 MCH 29.2 MCHC 33.5 RDW 17.7 H Plt Count 183 Neut % (Auto) 56.8 Lymph % (Auto) 37.0 [place] % (Auto) 4.9 Eos % (Auto) 1.1 L Baso % (Auto) 0.2 Neut # (Auto) 55859 H Sodium 137 Potassium 3.6 Chloride 98 Carbon Dioxide 31 BUN 11 Creatinine 0.40 L Estimated GFR > 60.0 BUN/Creatinine Ratio 27.5 H Glucose 124 H Calcium 8.0 L Magnesium 1.9 Procalcitonin 0.84 H Assessment & Plan Post-op Postoperative Procedures Operation Date: 03/22/18 16:15 Actual Procedures Side Surgeon p Exploratory Laparotomy, small bowel resection with ileocolic anastomosis Senthil Bright MD Postoperative status narrative: Patient is doing well. White blood cell count is still up but the differential is normal eyes to. Cultures grew 2 bacteria that are covered by Zosyn. Her procalcitonin has gradually decreased and is almost normal. Ostomy care was provided today. They will be back tomorrow. Postoperative plan narrative: Urine volumes are very high still. I will wait 1 more day a polar Lester in the morning. We will pull her drain tomorrow it is draining serous fluid. Advance diet if she tolerates liquids well. Removed her ostomy bar tomorrow. Time Spent With Patient less than 15 minutes
[2018-03-27] MEDS: LATANOPROST 0.005% OPHTH 2.5 ML 1 DROPS EYE-BOTH (21:02)
[2018-03-28] VITALS (12 sets, daily range): BP systolic 143–180; BP diastolic 84–98; PULSE 75–96; RESP 16–20; TEMP 36.3–37; O2SAT 95–98
[2018-03-28] MEDS: metroNIDAZOLE 500 MG/100 ML PIGGYBACK 100 MG IV ×4 (01:22→19:16)
[2018-03-28] MEDS: ONDANSETRON 4 MG/2 ML INJ IV ×2 (03:59→10:28)
[2018-03-28] MEDS: PIPERACILLIN-TAZO 3.375 GM/50 ML FROZ.PIGGY IV ×4 (05:35→23:23)
--- NOTE | 2018-03-28 06:08 | PC.NURSE ---
Pt. was alert and oriented at beginning of shift and forgetful with periods of confusion, easily reoriented. Pt. denied pain so no pain med given during the night, had vomited x1 approximately 50 ml of yellow liquid and felt better after vomiting, then felt nauseous around 4 am, medicated with Zofran with good relief. Colostomy bag emptied with 25 ml green pasty output. Lester with 1725 ml output of clear nasima urine. BT's hypoactive. Pt. hardly sleep during the night, dangle at bedside a couple times, back to bed and watch TV with few periods of napping.
[2018-03-28] MEDS: LACTATED RINGERS 1,000 ML 42 ML IV (06:46)
--- NOTE | 2018-03-28 08:09 | PT.IPTN ---
Current Diagnoses Sepsis, unspecified organism (03/22/18) Surgery Performed Operation Date: 03/22/18 16:15 Actual Procedures p Exploratory Laparotomy, small bowel resection with ileocolic anastomosis - Senthil Bright MD Physical Therapy Treatment Note M2 PT-IP Current Condition Start: 03/23/18 13:31 Freq: Status: Active Protocol: Document 03/23/18 13:31 RCC (Rec: 03/23/18 13:43 RCC [id number]) Physical Therapy Current Condition Current Condition Evaluation Date 03/23/18 Treatment Diagnosis abdominal pain s/p ex. lap. small bowel resection, impaired mobility Onset Date 03/22/18 Precautions Abdominal Surgery Precautions Log Roll Lifting Restrictions Gait Belt above Incisional Area Other Precautions CHRISTINA drain, blount catheter, NG tube, thoraic epidural M3 PT-IP Subjective Start: 03/23/18 13:31 Freq: Status: Active Protocol: Document 03/28/18 08:03 [facility] (Rec: 03/28/18 08:09 [facility] [id number]) Subjective Physical Therapy Visit Type Type Treatment Note Visit Start Time 07:35 Visit Stop Time 07:59 Total Visit Minutes 24 Number of LAWN CARE WORKER Visits 0 Physical Therapy Visit Comments Patient Comments Pt agreeable to walk Therapy Pain Assessment Pain Present Pain Present Pain Reported Location Abdomen Intensity 5 Scale Used Numeric (1 - 10) M4 PT-IP Mobility and Gait Start: 03/23/18 13:31 Freq: Status: Active Protocol: Document 03/28/18 08:03 [facility] (Rec: 03/28/18 08:09 [facility] [id number]) PT-Bed Mobility Assessment Scooting Scooting to Edge of Bed Standby Assistance PT-Transfer Assessment Sit to and From Stand Sit to and from Stand Contact Guard Assistance Use of Upper Extremities Equipment Transfer Assistive Device Gait Belt Front Wheeled Walker Orthotic/Prosthetic Devices or Brace: No Transfers Transfer Destination Chair Comments Mobility Comments Pt requires cueing for scooting fwd to stand Gait Assessment Gait Gait Assistance Required: Contact Guard Assist 1 Person Assist Distance (Feet) 100 Able to Maintain Weight Bearing Status Yes During Gait Assistive Devices Assistive Device Gait Belt Front Wheeled Walker Orthotic/Prosthetic Devices or Brace: No Gait Deviations General Gait Pattern Decreased Stride Length Decreased Feet Clearance Factors Limiting Gait Function Factors Limiting Gait Function Decreased Activity Tolerance Decreased Strength Pain Poor Balance M5 PT-IP Objective Assessments Start: 03/23/18 13:31 Freq: Status: Active Protocol: Document 03/23/18 13:31 RCC (Rec: 03/23/18 13:43 RCC [id number]) Orientation Orientation/Cognition Level of Alertness Alert Language Function Ability No Deficits Noted Safety Awareness Understands Safety Issues Memory Description No Deficits Noted Strength Comments Strength Comments able to PF/DF B feet, assist with knee flexion for log roll Coordination Assessment Gross Coordination Gross Coordination WNL Sensation Assessment Sensation Gross Sensation WNL Muscle Tone Muscle Tone WNL Yes M6 PT-IP Treatment Start: 03/23/18 13:31 Freq: Status: Active Protocol: Document 03/28/18 08:03 [facility] (Rec: 03/28/18 08:09 [facility] [id number]) Physical Therapy Treatment Exercises Exercises Ankle Pumps Gluteal Sets Seated Knee Flexion/Extension Other Treatments Other Treatment Performed seated hip abd, seated ER, marching x10 each M7 PT-IP Assessment and Plan Start: 03/23/18 13:31 Freq: Status: Active Protocol: Document 03/28/18 08:03 [facility] (Rec: 03/28/18 08:09 [facility] [id number]) PT Summary Assessment and Plan Summary Assessment Summary Pt requires cueing for sit to stand and is slow with ambulation. She is progressing with independences and will require further cueing. Frequency of Treatment Frequency Of Treatment Twice a Day Treatment Plan Other Recommendations and Next Treatment Continue to progress treatment Focus to improve bed mob, transfer and gait Recommendations To Nursing Amount of Assist Needed 1 Person Assist Discharge Recommendations PT Discharge Recommendations Home with 24/7 Assist Home Health SNF Rehab Other Discharge Recommendations SNF vs home with 24/7 and home health PT Equipment Needed for Home Before FWW Discharge
[2018-03-28] MEDS: GABAPENTIN 100 MG CAPSULE 200 MG PO ×2 (08:26→20:27)
[2018-03-28] MEDS: FLUCONAZOLE 200 MG/100 ML PIGGYBACK 100 MG IV (10:28)
--- NOTE | 2018-03-28 10:38 | PC.NURSE ---
Dayshift Note: Pt checked on and assessed. Pt received sitting up in bed, denies pain. Ostomy moist, dark pink, small amount of green fluid in bag. Pt with CHRISTINA in place, scant amount of serosang drainage in drain. Midline dressing is CDI. Pt with hypoactive BTs, denies nausea at beginning of shift, pt reports nausea at ~1045, given zofran, no emesis at this time. Pt had eaten clear liquid breakfast prior to nausea. Pt otherwise A and O x3, blount intially in place, order from Dr. Horvath to remove catheter, removed at 10:30. Pt on RA, SPO2 98%, lungs clear and diminished. Pt walked in hallway with PT this am. Will contiue to monitor, notify MD with changes.
--- NOTE | 2018-03-28 10:57 | CM.DPC ---
DCP Cont: Reached out to patient today. Alert and orientated, pleasant. Asked her about discharge plan with home health versus skilled. Patient stated that she is still thinking about it. Is still on TPN at this time. Therapy stated that she is improving, and that home health may be a good option for her. DCP to continue to assess and offer resources. Have face to face signed already if this is her choice. Evelia Chen RN/Home Advisor
--- NOTE | 2018-03-28 15:42 | PM.PREOP ---
Pre-operative Note Interval Note Pre-op Check: Yes History & Physical Reviewed by Physician and Yes Exam Performed Changes: No
[2018-03-28] MEDS: LOSARTAN 50 MG TABLET PO (15:54)
[2018-03-28] MEDS: HYDRALAZINE 20 MG/ML VIAL 5 MG IV (15:54)
--- NOTE | 2018-03-28 16:13 | PT.IPTN ---
Current Diagnoses Sepsis, unspecified organism (03/22/18) Surgery Performed Operation Date: 03/22/18 16:15 Actual Procedures p Exploratory Laparotomy, small bowel resection with ileocolic anastomosis - Senthil Bright MD Physical Therapy Treatment Note M2 PT-IP Current Condition Start: 03/23/18 13:31 Freq: Status: Active Protocol: Document 03/23/18 13:31 RCC (Rec: 03/23/18 13:43 RCC [id number]) Physical Therapy Current Condition Current Condition Evaluation Date 03/23/18 Treatment Diagnosis abdominal pain s/p ex. lap. small bowel resection, impaired mobility Onset Date 03/22/18 Precautions Abdominal Surgery Precautions Log Roll Lifting Restrictions Gait Belt above Incisional Area Other Precautions CHRISTINA drain, blount catheter, NG tube, thoraic epidural M3 PT-IP Subjective Start: 03/23/18 13:31 Freq: Status: Active Protocol: Document 03/28/18 15:54 LJ (Rec: 03/28/18 16:09 LJ [id number]) Subjective Physical Therapy Visit Type Type Treatment Note Visit Start Time 15:15 Visit Stop Time 15:45 Total Visit Minutes 30 Number of SILL WORKER Visits 1 Physical Therapy Visit Comments Patient Comments Pt states she needs to use the bathroom before walking Therapy Pain Assessment Pain When Pain Assessed At Rest Pain Present Pain Present Denied Pain M4 PT-IP Mobility and Gait Start: 03/23/18 13:31 Freq: Status: Active Protocol: Document 03/28/18 15:54 LJ (Rec: 03/28/18 16:09 LJ [id number]) PT-Bed Mobility Assessment Rolling Type of Rolling Log Rolling Roll to Left Level of Assist Contact Guard Assistance Supine to Sit Supine to Sit Contact Guard Assistance Bedrails Sit to Supine Sit to Supine Minimal Assistance 1 Person Assistance Head of Bed Elevated Bedrails Scooting Scooting to Edge of Bed Standby Assistance PT-Transfer Assessment Sit to and From Stand Sit to and from Stand Contact Guard Assistance Use of Upper Extremities Equipment Transfer Assistive Device Gait Belt Front Wheeled Walker Transfers Transfer Destination Bed Toilet Transfer Technique Stand Step Pivot Transfer Ability Level of Assist Contact Guard Assistance Minimal Assistance 1 Person Assistance Use of Upper Extremities Comments Mobility Comments Pt requires min assist w/RLEs during sit >supine. Gait Assessment Gait Gait Assistance Required: Contact Guard Assist 1 Person Assist Distance (Feet) 100 Able to Maintain Weight Bearing Status Yes During Gait Assistive Devices Assistive Device Gait Belt Front Wheeled Walker Orthotic/Prosthetic Devices or Brace: No Gait Deviations General Gait Pattern Decreased Stride Length Decreased Feet Clearance Factors Limiting Gait Function Factors Limiting Gait Function Decreased Activity Tolerance Decreased Strength Pain Poor Balance Comments Gait Comments Pt able to ambulate SBA and CGA 100' in room to toilet and in hallway. Pt used handrails for sit<>stand on toilet. Aware of IV line safety and pacing. No complaint of pain or nasuea during gait or toileting. PT-Balance Assessment Sitting Balance and Reactions Static Sitting Balance Ability Good Dynamic Sitting Balance Ability Fair Standing Balance and Reactions Static Standing Balance Ability Good Dynamic Standing Balance Ability Fair Device Used FWW M5 PT-IP Objective Assessments Start: 03/23/18 13:31 Freq: Status: Active Protocol: Document 03/23/18 13:31 RCC (Rec: 03/23/18 13:43 RCC [id number]) Orientation Orientation/Cognition Level of Alertness Alert Language Function Ability No Deficits Noted Safety Awareness Understands Safety Issues Memory Description No Deficits Noted Strength Comments Strength Comments able to PF/DF B feet, assist with knee flexion for log roll Coordination Assessment Gross Coordination Gross Coordination WNL Sensation Assessment Sensation Gross Sensation WNL Muscle Tone Muscle Tone WNL Yes M6 PT-IP Treatment Start: 03/23/18 13:31 Freq: Status: Active Protocol: Document 03/28/18 16:12 (Rec: 03/28/18 16:12 [id number]) Physical Therapy Treatment Education Education Provided Safety M7 PT-IP Assessment and Plan Start: 03/23/18 13:31 Freq: Status: Active Protocol: Document 03/28/18 15:54 (Rec: 03/28/18 16:09 [id number]) PT Summary Assessment and Plan Potential Rehabilitation Potential Good Summary Impairments Pain Strength Balance Coordination Activity Tolerance Progress Towards Goals Progressing Toward Goals Assessment Summary Pt increased speed during ambulation. Able to transfer w /SBA supine>sit<>stand and Min assist sit>supine for getting RLE into bed. Goals Bed Mobility Goal Standby Assistance Transfer Goal Standby Assistance Gait Goal Standby Assistance Gait Distance 200 Other Goals up/down 2 steps without rails Days to Meet Goals 5 Frequency of Treatment Frequency Of Treatment Twice a Day Treatment Plan Other Recommendations and Next Treatment Continue to progress treatment Focus to improve bed mob, transfer and gait Recommendations To Nursing Amount of Assist Needed 1 Person Assist Discharge Recommendations PT Discharge Recommendations Home with 24/7 Assist Home Health SNF Rehab Other Discharge Recommendations SNF vs home with 24/7 and home health PT Equipment Needed for Home Before pt reports she has FWW at home Discharge and that her house is very small and she can use hallway and furniture to get around
[2018-03-28] MEDS: ENOXAPARIN 40 MG/0.4 ML SYRINGE SUBCUT (16:52)
[2018-03-28] MEDS: MORPHINE 4 MG/ML INJ IV (17:05)
--- NOTE | 2018-03-28 17:28 | PM.PNPO.1 ---
Subjective Date Patient Seen: 03/28/18 Time Patient Seen: 17:28 Interval history: Patient is a woman who had an ileal resection with ileocolic anastomosis and a diverting loop ileostomy. She is feeling a little better every day. She had some nausea earlier today. Ostomy is functioning well. She has large amounts of urine but that is slowed down somewhat. Exam Vital Signs (past 8 hours): - 03/28/18 11:39 03/28/18 16:01 03/28/18 16:03 Temperature 97.6 F 97.7 F Pulse Rate 75 78 Respiratory Rate 16 16 Blood Pressure 180/89 H 152/95 H Pulse Oximetry 96 97 97 03/28/18 16:51 Temperature Pulse Rate Respiratory Rate Blood Pressure 155/86 H Pulse Oximetry Oxygen Delivery Method Room Air Oxygen Flow Rate 0 Narrative Exam Narrative: Midline is healthy. Ostomy looks fine. Drainage is minimal from the CHRISTINA drain. The scaphoid. No new labs. Objective Labs Result Diagrams: 03/27/18 05:15 03/27/18 05:15 Assessment & Plan Post-op Postoperative Procedures Operation Date: 03/22/18 16:15 Actual Procedures Side Surgeon p Exploratory Laparotomy, small bowel resection with ileocolic anastomosis Senthil Bright MD Postoperative status narrative: Doing well. I removed her drain, tied the sutures partially closing her midline, and removed the bar under her ileostomy.
--- NOTE | 2018-03-28 18:09 | PC.NURSE ---
Ostomy Wound Nurse Ned here with Maria Dolores to do another teaching lesson. Dr. Bright also here to remove bridge and CHRISTINA drain as well as tighten midline incision sutures. Maria Dolores tolerated the procedures. Her stoma is edematous, moist and red. She is producing dark liquid stool. I placed her in a 57mm Flat Convatec wafer with a clear pouch with an adaptor. I used some stoma paste and feel that her next change she can go into a 45m Flat Convatec wafer which I have left several by her bedside. I did use 2 2x2 gauze moist with saline into the wound bed and covered with a 4x4. I did not measure the incision. There was some serosanguenous drainage on the gauze that Dr. Bright removed. The wound bed looks clean of slough and has some pink granulation tissue and adapose. I reviewed pouching with Ned. He has reviewed the teaching material I have left. I showed him how to do the crusting technique and showed him in the teaching materials a written instructions. I will be away all this weekend and next week. I will follow up with Maria Dolores and Ned when I return on the 07 of April.
[2018-03-28] MEDS: SODIUM CHLORIDE 0.9% FLUSH 10 ML IV (19:16)
[2018-03-28] MEDS: LATANOPROST 0.005% OPHTH 2.5 ML 1 DROPS EYE-BOTH (20:27)
[2018-03-29] VITALS (8 sets, daily range): BP systolic 127–147; BP diastolic 70–88; PULSE 87–93; RESP 16–18; TEMP 36.4–36.9; O2SAT 94–99
[2018-03-29] MEDS: metroNIDAZOLE 500 MG/100 ML PIGGYBACK 100 MG IV ×4 (00:45→21:18)
[2018-03-29 05:27] LABS: Add Manual Diff / Slide Review NO; Basophils Percent Auto 0.5 % (0-2); Eosinophils Percent Auto 1.7 % (2-4); Hematocrit 31.2 % (36-46); Hemoglobin 10.5 g/dL (12.0-16.0); Lymphocytes Percent Auto 50.8 % (25-40); Mean Corpuscular HGB Conc 33.7 % (30-36); Mean Corpuscular Hemoglobin 29.2 PG (26-34); Mean Corpuscular Volume 86.6 fL (80-100); Monocytes Percent Auto 7.5 % (3-14); Neutrophils Absolute Auto 6300 /uL (3000-5900); Neutrophils Percent Auto 39.5 % (50-75); Platelet Count 298 X10^3/uL (150-400); Red Blood Cell Count 3.61 X10^6/uL (4.0-5.2); Red Cell Distribution Width 17.3 % (11.6-14.8); White Blood Cell Count 15.9 X10^3/uL (4.5-11.0)
[2018-03-29 05:34] LABS: Alanine Aminotransferase 30 IU/L (9-52); Albumin 2.7 g/dL (3.5-5.0); Albumin Globulin Ratio 0.9 (1.0-2.8); Alkaline Phosphatase 77 U/L (38-126); Aspartate Aminotransferase 30 IU/L (14-36); Bilirubin Total 0.8 mg/dL (0.2-1.3); Blood Urea Nitrogen 14 mg/dL (7-17); Calcium 8.3 mg/dL (8.4-10.2); Carbon Dioxide 31 mmol/L (22-32); Chloride 100 mmol/L (98-107); Estimated Glomerular Filt Rate > 60.0 mL/min (>60); Globulin 2.9 g/dL (1.7-4.1); Glucose 80 mg/dL (80-110); HEMOLYSIS 16 (0-50); Potassium 4.2 mmol/L (3.4-5.1); Sodium 137 mmol/L (137-145); Total Protein 5.6 g/dL (6.3-8.2)
[2018-03-29] MEDS: PIPERACILLIN-TAZO 3.375 GM/50 ML FROZ.PIGGY IV ×3 (05:39→19:00)
[2018-03-29 06:00] LABS: Procalcitonin 0.35 ng/mL (<0.5)
[2018-03-29] MEDS: LOSARTAN 50 MG TABLET PO (08:14)
[2018-03-29] MEDS: hydroCHLOROthiazide 25 MG TABLET PO (08:14)
[2018-03-29] MEDS: PANTOPRAZOLE 40 MG TABLET PO (08:15)
[2018-03-29] MEDS: GABAPENTIN 100 MG CAPSULE 200 MG PO ×2 (08:15→21:40)
[2018-03-29] MEDS: KETOROLAC 15 MG/ML VIAL IV (08:15)
[2018-03-29] MEDS: SODIUM CHLORIDE 0.9% FLUSH 10 ML IV ×2 (08:17→20:46)
--- NOTE | 2018-03-29 10:11 | PC.NURSE ---
Report called to acute care RN. Pt to transfer to room 213. Pt states she will notify her of room changes. All belongings gathered and sent with pt.
--- NOTE | 2018-03-29 10:41 | PC.NURSE ---
Day shift: Pt on AC unit from ICU at approx 1030. A&Ox3. Pain at ABD 08/31. No nausea. Denies any chest pain. Ostomy patent with red stoma visible. Midline incision dressing CDI. Oriented to room and call light. Wants to sit in WC at this time. Facing east window looking at the view. Calm and cooperative at this time. VS WNL. Will continue to monitor.
--- NOTE | 2018-03-29 11:00 | PT.IPTN ---
Current Diagnoses Sepsis, unspecified organism (03/22/18) Surgery Performed Operation Date: 03/22/18 16:15 Actual Procedures p Exploratory Laparotomy, small bowel resection with ileocolic anastomosis - Senthil Bright MD Physical Therapy Treatment Note M2 PT-IP Current Condition Start: 03/23/18 13:31 Freq: Status: Active Protocol: Document 03/23/18 13:31 RCC (Rec: 03/23/18 13:43 RCC [id number]) Physical Therapy Current Condition Current Condition Evaluation Date 03/23/18 Treatment Diagnosis abdominal pain s/p ex. lap. small bowel resection, impaired mobility Onset Date 03/22/18 Precautions Abdominal Surgery Precautions Log Roll Lifting Restrictions Gait Belt above Incisional Area Other Precautions CHRISTINA drain, blount catheter, NG tube, thoraic epidural M3 PT-IP Subjective Start: 03/23/18 13:31 Freq: Status: Active Protocol: Document 03/29/18 11:00 GGD (Rec: 03/29/18 11:52 GGD [email or web address]) Subjective Physical Therapy Visit Type Type Treatment Note Visit Start Time 10:30 Visit Stop Time 11:00 Total Visit Minutes 30 Number of CARPENTER'S ASSISTANT Visits 2 Physical Therapy Visit Comments Patient Comments Pt states she feeling better and want's to walk. Therapy Pain Assessment Pain When Pain Assessed At Rest Pain Present Pain Present Denied Pain M4 PT-IP Mobility and Gait Start: 03/23/18 13:31 Freq: Status: Active Protocol: Document 03/29/18 11:00 GGD (Rec: 03/29/18 11:52 GGD [id number]) PT-Transfer Assessment Sit to and From Stand Sit to and from Stand Contact Guard Assistance Use of Upper Extremities Equipment Transfer Assistive Device Gait Belt Front Wheeled Walker Transfers Transfer Destination Chair Transfer Technique Stand Step Pivot Transfer Ability Level of Assist Contact Guard Assistance Use of Upper Extremities Gait Assessment Gait Gait Assistance Required: Contact Guard Assist 1 Person Assist Distance (Feet) 220 Able to Maintain Weight Bearing Status Yes During Gait Assistive Devices Assistive Device Gait Belt Front Wheeled Walker Orthotic/Prosthetic Devices or Brace: No Gait Deviations General Gait Pattern Decreased Stride Length Decreased Feet Clearance Factors Limiting Gait Function Factors Limiting Gait Function Decreased Activity Tolerance Decreased Strength Pain Poor Balance Comments Gait Comments Pt needed one standing rest break with ambulation M5 PT-IP Objective Assessments Start: 03/23/18 13:31 Freq: Status: Active Protocol: Document 03/23/18 13:31 RCC (Rec: 03/23/18 13:43 RCC [id number]) Orientation Orientation/Cognition Level of Alertness Alert Language Function Ability No Deficits Noted Safety Awareness Understands Safety Issues Memory Description No Deficits Noted Strength Comments Strength Comments able to PF/DF B feet, assist with knee flexion for log roll Coordination Assessment Gross Coordination Gross Coordination WNL Sensation Assessment Sensation Gross Sensation WNL Muscle Tone Muscle Tone WNL Yes M6 PT-IP Treatment Start: 03/23/18 13:31 Freq: Status: Active Protocol: Document 03/29/18 11:00 GGD (Rec: 03/29/18 11:52 GGD [id number]) Physical Therapy Treatment Exercises Exercises Seated Knee Flexion/Extension M7 PT-IP Assessment and Plan Start: 03/23/18 13:31 Freq: Status: Active Protocol: Document 03/29/18 11:00 GGD (Rec: 03/29/18 11:52 GGD [id number]) PT Summary Assessment and Plan Summary Assessment Summary Pt improving with mobility. She able to progress her gait distance and pace. She had no unsteadiness with gait with FWW. She improved with sit to stand. Frequency of Treatment Frequency Of Treatment Twice a Day Treatment Plan Other Recommendations and Next Treatment Continue to progress treatment Focus to improve bed mob, transfer and gait Recommendations To Nursing Amount of Assist Needed 1 Person Assist Discharge Recommendations PT Discharge Recommendations Home with Assistance Home Health
[2018-03-29] MEDS: LACTATED RINGERS 1,000 ML 42 ML IV (12:09)
--- NOTE | 2018-03-29 12:37 | PC.NURSE ---
Day shift: Chem BG taken at 1230. BG was 87. No s/s of hypoglycemia. D/c'd the fingerstick BG's per protocol and conversation with MATTHEW Mary.
--- NOTE | 2018-03-29 13:14 | CM.DPC ---
Addendum entered by Maribel Borjas LPN 03/29/18 14:19: Did just speak with Dr. Nj, rounding this weekend for surgical team. He reports that he expects pt will be here for at least a few more days and no consideration of a d/c this weekend. Original Note: DCP: continued: Case received, EMR reviewed and met with pt. Introduced self and role. Pt has just moved from ICU room to 213 on medical floor. Is off TPN, working on lunch of full liquids. Pt notes I am still working through the whole idea of the ileostomy. I can't look at myself yet. Went over d/c issues and options. Concerns identified in discussion: supervisor liquid yeast Stephanie has been working with pt and her and primarily with teach to . She say them yesterday and will now be away with return expected on Apr 07. Pt's is scheduled to go on an already planned trip to [place] to assist family and was to be gone for 2 weeks. Encouraged pt to consider snf care during this time. Went over financial issues (100% coverage for first 20 days with a copay thereafter, dependent on the [employer] supplement plan). Would anticipate that pt would only need this setting for rehab and continued ostomy management until her returns home. Discussed HH RN option after this. Choice list for Medicare SNFs and HH agencies given. Pt unable to go further at this time...assured her that this [place] landscape architect and planner would be available today and tomorrow for any further questions, discussion and that if her is here this d/c landscape architect and planner would welcome the opportunity to talk with both of them. Pt expressed thankfulness for same. It would be helpful to have an idea of when the surgical team is planning the d/c so that pt is not rushed into a decision at the last moment.
--- NOTE | 2018-03-29 13:31 | PN_ITS ---
DATE OF SERVICE: 03/29/2018 Patient is about a week now post exploratory laparotomy, small bowel resection. This was done for bowel obstruction secondary to an obstructed anastomosis. Subjectively, she is feeling very well today. She is sitting up in a chair. She is tolerating a full liquid diet. She is afebrile. On exam, she has a soft abdomen. Dressing is dry and intact. Intake and output balanced. White count has dropped from a high of 35,000; today is 15,900. Hemoglobin is 10.5. Electrolytes look good; all normal. Her creatinine is 0.5, BUN 14. IMPRESSION: Patient is recovering very nicely from a rather involved devastating bowel obstruction. She is recovering well, tolerating her diet. I have added some protein supplements to her full liquid diet, got a dietary consult for that and added Percocet, so she can have an oral analgesic. She is to be transferred out of ICU today up to the floor. Maria Dolores Shoemaker - Jeanne doc#: [id number]/job#: [id number] dd: 03/29/2018 10:05:00 dt: 03/29/2018 13:23:00 DICTATING /COPIES TO: Joshua Nj MD COPIES MNE: TORI
--- NOTE | 2018-03-29 14:24 | PT.IPTN ---
Current Diagnoses Sepsis, unspecified organism (03/22/18) Surgery Performed Operation Date: 03/22/18 16:15 Actual Procedures p Exploratory Laparotomy, small bowel resection with ileocolic anastomosis - Senthil Bright MD Physical Therapy Treatment Note M2 PT-IP Current Condition Start: 03/23/18 13:31 Freq: Status: Active Protocol: Document 03/23/18 13:31 RCC (Rec: 03/23/18 13:43 RCC [id number]) Physical Therapy Current Condition Current Condition Evaluation Date 03/23/18 Treatment Diagnosis abdominal pain s/p ex. lap. small bowel resection, impaired mobility Onset Date 03/22/18 Precautions Abdominal Surgery Precautions Log Roll Lifting Restrictions Gait Belt above Incisional Area Other Precautions CHRISTINA drain, blount catheter, NG tube, thoraic epidural M3 PT-IP Subjective Start: 03/23/18 13:31 Freq: Status: Active Protocol: Document 03/29/18 13:10 (Rec: 03/29/18 14:24 [id number]) Subjective Physical Therapy Visit Type Type Treatment Note Visit Start Time 13:10 Visit Stop Time 13:40 Total Visit Minutes 30 Notes Pt in bathroom w/NAC changing briefs and emptying colostmy bag. Therapy Pain Assessment Pain When Pain Assessed During Mobility Pain Present Pain Present Pain Reported Location Abdomen Scale Used Numeric (1 - 10) M4 PT-IP Mobility and Gait Start: 03/23/18 13:31 Freq: Status: Active Protocol: Document 03/29/18 13:10 (Rec: 03/29/18 14:24 [id number]) PT-Bed Mobility Assessment Rolling Type of Rolling Log Rolling Level of Assist Minimal Assistance 1 Person Assistance Sit to Supine Sit to Supine Minimal Assistance Head of Bed Elevated Scooting Scooting to Edge of Bed Independent Scooting Up and Down in Bed Independent PT-Transfer Assessment Sit to and From Stand Sit to and from Stand Standby Assistance Equipment Transfer Assistive Device Gait Belt Front Wheeled Walker Orthotic/Prosthetic Devices or Brace: No Transfers Transfer Destination Bed Transfer Technique Stand Step Pivot Transfer Ability Level of Assist Contact Guard Assistance Use of Upper Extremities Comments Mobility Comments Pt requires min assist w/RLE during sit >supine. Gait Assessment Gait Gait Assistance Required: Contact Guard Assist 1 Person Assist Distance (Feet) 200 Assistive Devices Assistive Device Gait Belt Front Wheeled Walker Orthotic/Prosthetic Devices or Brace: No Gait Deviations General Gait Pattern Decreased Stride Length Decreased Feet Clearance Factors Limiting Gait Function Factors Limiting Gait Function Decreased Activity Tolerance Decreased Strength Pain Poor Balance Comments Gait Comments Pt did not require any rest breaks and was consistant with keeping a safe pace and keeping the walker closer to her. M5 PT-IP Objective Assessments Start: 03/23/18 13:31 Freq: Status: Active Protocol: Document 03/23/18 13:31 RCC (Rec: 03/23/18 13:43 RCC [id number]) Orientation Orientation/Cognition Level of Alertness Alert Language Function Ability No Deficits Noted Safety Awareness Understands Safety Issues Memory Description No Deficits Noted Strength Comments Strength Comments able to PF/DF B feet, assist with knee flexion for log roll Coordination Assessment Gross Coordination Gross Coordination WNL Sensation Assessment Sensation Gross Sensation WNL Muscle Tone Muscle Tone WNL Yes M6 PT-IP Treatment Start: 03/23/18 13:31 Freq: Status: Active Protocol: Document 03/29/18 14:24 LJ (Rec: 03/29/18 14:24 LJ [id number]) Physical Therapy Treatment Exercises Exercises Ankle Pumps Gluteal Sets Quad Sets Heel Slides Education Education Provided Safety M7 PT-IP Assessment and Plan Start: 03/23/18 13:31 Freq: Status: Active Protocol: Document 03/29/18 13:10 LJ (Rec: 03/29/18 14:24 [id number]) PT Summary Assessment and Plan Summary Assessment Summary Pt returned to bed on the right which confused and concerned her d/t colostomy bag. Required assist with LEs but was able to position herself in bed with SBA. Demonstrated safety awareness during gait Frequency of Treatment Frequency Of Treatment Twice a Day Treatment Plan Other Recommendations and Next Treatment Continue to progress treatment Focus to improve bed mob, transfer and gait Recommendations To Nursing Amount of Assist Needed 1 Person Assist Discharge Recommendations PT Discharge Recommendations Home with Assistance Home Health
--- NOTE | 2018-03-29 16:07 | PC.NURSE ---
Addendum entered by Rosalina Betts R.N. 03/29/18 21:34: Pt resting at intervals through evening. Denies any discomfort. Midline drainage noted. Ostomy patent liq. brown content. IV continue as per orders. Call light w/in reach, bed alarm on for pt safety. Stable post op course. Continue w/plan of care. Original Note: Pt resting quietly at this time. Lungs clear, SpO2 95% RA Dsg to the midline abdomen CDI. Ostomy intact/patent brown liquid. Call light w/in reach, bed alarm on for pt safety.
[2018-03-29] MEDS: ENOXAPARIN 40 MG/0.4 ML SYRINGE SUBCUT (18:39)
[2018-03-29] MEDS: LATANOPROST 0.005% OPHTH 2.5 ML 1 DROPS EYE-BOTH (21:40)
[2018-03-30] MEDS: KETOROLAC 15 MG/ML VIAL IV (00:33)
[2018-03-30] MEDS: PIPERACILLIN-TAZO 3.375 GM/50 ML FROZ.PIGGY IV ×4 (00:36→17:56)
[2018-03-30] MEDS: SODIUM CHLORIDE 0.9% FLUSH 10 ML IV ×3 (00:36→20:43)
[2018-03-30] MEDS: metroNIDAZOLE 500 MG/100 ML PIGGYBACK 100 MG IV ×4 (03:16→18:42)
[2018-03-30] MEDS: PANTOPRAZOLE 40 MG TABLET PO (06:08)
[2018-03-30 08:00] VITALS: BP 125/91; PULSE 89; RESP 16; TEMP 36.6; O2SAT 99
[2018-03-30 08:47] VITALS: O2SAT 96
[2018-03-30] MEDS: hydroCHLOROthiazide 25 MG TABLET PO (09:32)
[2018-03-30] MEDS: GABAPENTIN 100 MG CAPSULE 200 MG PO ×2 (09:32→20:38)
[2018-03-30] MEDS: LOSARTAN 50 MG TABLET PO (09:33)
--- NOTE | 2018-03-30 10:35 | PT.IPTN ---
Current Diagnoses Sepsis, unspecified organism (03/22/18) Surgery Performed Operation Date: 03/22/18 16:15 Actual Procedures p Exploratory Laparotomy, small bowel resection with ileocolic anastomosis - Senthil Bright MD Physical Therapy Treatment Note M2 PT-IP Current Condition Start: 03/23/18 13:31 Freq: Status: Active Protocol: Document 03/23/18 13:31 RCC (Rec: 03/23/18 13:43 RCC [id number]) Physical Therapy Current Condition Current Condition Evaluation Date 03/23/18 Treatment Diagnosis abdominal pain s/p ex. lap. small bowel resection, impaired mobility Onset Date 03/22/18 Precautions Abdominal Surgery Precautions Log Roll Lifting Restrictions Gait Belt above Incisional Area Other Precautions CHRISTINA drain, blount catheter, NG tube, thoraic epidural M3 PT-IP Subjective Start: 03/23/18 13:31 Freq: Status: Active Protocol: Document 03/30/18 09:20 CLB (Rec: 03/30/18 10:34 CLB [id number]) Subjective Physical Therapy Visit Type Type Treatment Note Visit Start Time 09:20 Visit Stop Time 09:47 Total Visit Minutes 27 Number of DIRECTOR BIOSTATISTICS Visits 4 Physical Therapy Visit Comments Patient Comments Pt needing to use BR. Therapy Pain Assessment Pain When Pain Assessed During Mobility Pain Present Pain Present Denied Pain M4 PT-IP Mobility and Gait Start: 03/23/18 13:31 Freq: Status: Active Protocol: Document 03/30/18 09:20 CLB (Rec: 03/30/18 10:34 CLB [id number]) PT-Bed Mobility Assessment Rolling Type of Rolling Log Rolling Level of Assist Contact Guard Assistance Supine to Sit Supine to Sit Contact Guard Assistance Sit to Supine Sit to Supine Contact Guard Assistance Head of Bed Elevated Scooting Scooting to Edge of Bed Independent Scooting Up and Down in Bed Independent PT-Transfer Assessment Sit to and From Stand Sit to and from Stand Standby Assistance Use of Upper Extremities Equipment Transfer Assistive Device Gait Belt Front Wheeled Walker Orthotic/Prosthetic Devices or Brace: No Transfers Transfer Destination Chair Toilet Transfer Ability Level of Assist Contact Guard Assistance Use of Upper Extremities Gait Assessment Gait Gait Assistance Required: Standby Assistance 1 Person Assist Distance (Feet) 200 Assistive Devices Assistive Device Gait Belt Front Wheeled Walker Orthotic/Prosthetic Devices or Brace: No Gait Deviations General Gait Pattern Decreased Stride Length Decreased Feet Clearance Factors Limiting Gait Function Factors Limiting Gait Function Decreased Activity Tolerance Decreased Strength Pain Poor Balance Comments Gait Comments Pt needed standing rest break during ambulation. M5 PT-IP Objective Assessments Start: 03/23/18 13:31 Freq: Status: Active Protocol: Document 03/23/18 13:31 RCC (Rec: 03/23/18 13:43 RCC [id number]) Orientation Orientation/Cognition Level of Alertness Alert Language Function Ability No Deficits Noted Safety Awareness Understands Safety Issues Memory Description No Deficits Noted Strength Comments Strength Comments able to PF/DF B feet, assist with knee flexion for log roll Coordination Assessment Gross Coordination Gross Coordination WNL Sensation Assessment Sensation Gross Sensation WNL Muscle Tone Muscle Tone WNL Yes M6 PT-IP Treatment Start: 03/23/18 13:31 Freq: Status: Active Protocol: Document 03/29/18 14:24 LJ (Rec: 03/29/18 14:24 LJ [id number]) Physical Therapy Treatment Exercises Exercises Ankle Pumps Gluteal Sets Quad Sets Heel Slides Education Education Provided Safety M7 PT-IP Assessment and Plan Start: 03/23/18 13:31 Freq: Status: Active Protocol: Document 03/30/18 09:20 CLB (Rec: 03/30/18 10:34 CLB [id number]) PT Summary Assessment and Plan Summary Assessment Summary Pt able to perform all pericare including donning/ doffing brief. Pt with no LOB during hand, face and teeth washing. Pt continues to do well with bed mobility. Goals Bed Mobility Goal Standby Assistance Transfer Goal Standby Assistance Gait Goal Standby Assistance Gait Distance 200 Other Goals up/down 2 steps without rails Days to Meet Goals 5 Frequency of Treatment Frequency Of Treatment Twice a Day Treatment Plan Other Recommendations and Next Treatment Continue to progress treatment Focus to improve bed mob, transfer and gait Recommendations To Nursing Amount of Assist Needed 1 Person Assist Discharge Recommendations PT Discharge Recommendations Home with 24/7 Assist Home Health SNF Rehab Other Discharge Recommendations SNF vs home with 24/7 and home health PT Equipment Needed for Home Before pt reports she has FWW at home Discharge and that her house is very small and she can use hallway and furniture to get around
--- NOTE | 2018-03-30 11:42 | OT.IP.EVAL ---
Current Diagnoses Sepsis, unspecified organism (03/22/18) Surgery Performed Operation Date: 03/22/18 16:15 Actual Procedures p Exploratory Laparotomy, small bowel resection with ileocolic anastomosis - Senthil Bright MD Past Medical History (Last Reviewed 03/22/18 @ 15:33 by PAULO Plunkett) Hypertension (Acute) Mild protein-calorie malnutrition (Acute) CLL (chronic lymphocytic leukemia) (Chronic) Erythrocytosis (Chronic) Glaucoma (Chronic) H/O: hysterectomy (Resolved) Mass of appendix (Resolved) Other bursal cyst, unspecified wrist (Resolved) Tubal ligation status (Resolved) Surgical History (Last Reviewed 03/22/18 @ 15:33 by PAULO Plunkett) History of colonoscopy (Acute) Status post laparoscopic colectomy (Acute) Occupational Therapy Inpatient Evaluation/Re-Eval M1 PT/OT-IP Prior Functional Status Start: 03/23/18 13:31 Freq: Status: Active Protocol: Document 03/23/18 13:31 RCC (Rec: 03/23/18 13:43 RCC [id number]) Medical Review Prior Functional Status Medical History Reviewed Yes Mobility and Gait indep community ambulation without device (she did use a 4WW after previous hospitalizations but not using it prior to this episode) Activities of Daily Living and IADL's indep. I/ADLs including driving Social History Household Members spouse Living Arrangements House Number of Floors (Floors) One Floor Number of Stairs To Enter/Railing? 2 SE with wall of house to use for UEs Home Environment Standard Height Toilet Tub/Shower Home Equipment Four Wheel Walker Bed Rails Grab Bars Near Toilet Grab Bars In Shower Additional Social History Comment Pt notes they are in the rehab process of installing a bathroom with WI shower, not yet completed. Spouse can assist upon d/c per pt. M1 PT/OT-IP Prior Functional Status Start: 03/30/18 11:25 Freq: NEEDED Status: Active Protocol: Document 03/30/18 11:25 CCC (Rec: 03/30/18 11:42 CCC [id number]) Medical Review Prior Functional Status Medical History Reviewed Yes Mobility and Gait indep community ambulation without device (she did use a 4WW after previous hospitalizations but not using it prior to this episode) Activities of Daily Living and IADL's indep. I/ADLs including driving Social History Household Members spouse Living Arrangements House Number of Floors (Floors) One Floor Number of Stairs To Enter/Railing? 2 SE with wall of house to use for UEs Home Environment Standard Height Toilet Tub/Shower Home Equipment Four Wheel Walker Bed Rails Grab Bars Near Toilet Grab Bars In Shower Additional Social History Comment Pt notes they are in the rehab process of installing a bathroom with WI shower, not yet completed. Spouse can assist upon d/c per pt. M2 OT-IP Current Condition Start: 03/30/18 11:25 Freq: Status: Active Protocol: Document 03/30/18 11:25 [facility] (Rec: 03/30/18 11:42 [facility] [id number]) Occupational Therapy Current Condition Current Condition Evaluation Date 03/30/18 Treatment Diagnosis s/p ex lap. small bowel resection, weakness Diagnosis Onset Date 03/22/18 Post Operative Precautions Abdominal Surgery Precautions Log Roll Lifting Restrictions Gait Belt above Incisional Area M3 OT- IP Subjective and Pain Start: 03/30/18 11:25 Freq: Status: Active Protocol: Document 03/30/18 11:25 [facility] (Rec: 03/30/18 11:42 [facility] [id number]) OT- Subjective Occupational Therapy Visit Type Type Initial Evaluation Visit Start Time 11:05 Visit Stop Time 11:15 Total Visit Minutes 10 Occupational Therapy Visit Comments Patient Comments Pt very cooperative and pleasant. Patient/Caregiver Goals Pt states would feel better to go to skilled rehab prior to going home. OT Pain Assessment Pain When Pain Assessed At Rest Pain Present Pain Present Denied Pain M4 OT- IP ADL's Start: 03/30/18 11:25 Freq: Status: Active Protocol: Document 03/30/18 11:25 [facility] (Rec: 03/30/18 11:42 [facility] [id number]) OT ADL-Grooming Comments OT Grooming Comments Pt states already did this AM with [employer]. OT ADL-Toileting Comments OT Toileting Comments Pt states already just used the toilet earlier. M6 OT- IP Functional Cognition Start: 03/30/18 11:25 Freq: Status: Active Protocol: Document 03/30/18 11:25 [facility] (Rec: 03/30/18 11:42 [facility] [id number]) Cognitive Factors Limiting Selfcare Function Cognitive Ability Level of Alertness Alert Patient Orientation Name Age Birthday Month Date Year Day of Week Place Situation Attention Span Ability Capable of Focused Attention Capable of Sustained Attention Ability to Follow Commands Able to Follow Multi-Step Commands Cognitive Comments Cognitive Assessment Comments Pt appears WFL for all functional cognition, at this time, to continue to assess. OT- Vision and Hearing OT- Hearing Assessment OT- Hearing Assessment WFL M7 OT- IP Mobility and Balance Start: 03/30/18 11:25 Freq: Status: Active Protocol: Document 03/30/18 11:25 [facility] (Rec: 03/30/18 11:42 [facility] [id number]) OT-Transfer Assessment Sit to and From Stand Sit to and from Stand Standby Assistance Comments Mobility Comments Increased time to scoot forwards, good hand placement on recliner armrests, and able to push up to stand, pt tends to favor left leg to stand as complaining of right quad weakness. To pass information to PT/BANANA EXPERT. Pt states has noticed right quad weakness for driving recently. OT- Gait Assessment Gait Gait Assistance Required: Standby Assistance Comments Gait Ability Comments Pt able to walk with FWW with SBA in the room. Adjusted the FWW down one notch and pt states feels more comfortable. Pt states at home has 4ww that she mainly uses outside. OT- Balance Assessment Sitting Balance and Reactions Static Sitting Balance Ability Normal Dynamic Sitting Balance Ability Good Standing Balance and Reactions Static Standing Balance Ability Good M8 OT- IP Objective Assessments Start: 03/30/18 11:25 Freq: Status: Active Protocol: Document 03/30/18 11:25 [facility] (Rec: 03/30/18 11:42 [facility] [id number]) OT Gross Range of Motion Upper Extremity Range of Motion Assessment Within Functional Limits OT Strength Comments Strength Comments Pt right hand dominant however strength equal between right and left hand/arm 4-/5. OT-Muscle Tone Assessment Muscle Tone WNL Yes M9 OT- IP Assessment and Plan Start: 03/30/18 11:25 Freq: Status: Active Protocol: Document 03/30/18 11:25 [facility] (Rec: 03/30/18 11:42 [facility] [id number]) OT Summary Assessment and Plan Potential Rehabilitation Potential Excellent Analytic Complexity at Evaluation Low Summary OT Impairments Strength Balance Functional Mobility Dressing Bathing Toilet Transfers Shower Transfers Progress Towards Goals Progressing Toward Goals Assessment Summary Pt Low complexity and main barrier is activity tolerance, decreased strength, and would benefit from continued education to care for her new ostomy. Therefore, pt would benefit from short skilled rehab. Goals Grooming Goal Independent Dressing Goal Independent Toileting Goal Independent Bathing Goal Standby Assistance Toilet Transfer Goal Independent Shower Transfer Goal Contact Guard Assistance Patient/Caregiver Education Goal Caregiver Independent Assisting Patient Days to Meet Goals 5 Frequency of Treatment Frequency Of Treatment Once a Day Treatment Plan OT Treatment Plan ADL Training Patient/Family Education Discharge Planning Discharge Recommendations OT Discharge Recommendations SNF Rehab
[2018-03-30] MEDS: LACTATED RINGERS 1,000 ML 42 ML IV (13:15)
--- NOTE | 2018-03-30 13:39 | PN_ITS ---
DATE OF SERVICE: 03/30/2018 SUBJECTIVE: The patient is now a week post small-bowel resection for a strictured anastomosis of a right hemicolectomy. Subjectively, the patient is sitting up in a chair. She's tolerating her liquid diet rather well, does not complain of any abdominal pain. OBJECTIVE: She's afebrile. Her vital signs are very stable. She is producing school in her loop ileostomy which is protecting a new anastomosis. She seems to be doing rather well. PLAN: I've consulted Dietary to increase her protein intake with some pudding supplements and liquid protein supplements. She is doing rather well. Maria Dolores Shoemaker - Americo/ doc#: [id number]/job#: [id number] dd: 03/30/2018 11:35:00 dt: 03/30/2018 12:19:00 DICTATING /COPIES TO: Joshua Nj MD COPIES MNE: TORI
--- NOTE | 2018-03-30 14:23 | CM.DPC ---
DCP: continued: checked in with pt again today after hearing from GÓMEZ Johnson that pt had looked at her ostomy today for first time and that she was now leaning toward a snf stay. Found pt sitting in chair, today looking quite cheerful. She confirms she and Ned both agree a snf stay is best. She says Ned has the list and is looking at the options. She is firm that she is not ready to put her name into a facility for pending referral but says she does expect she will have a decision tomorrow. DCP team will continue to follow closely to assist pt in her d/c dispo plans.
--- NOTE | 2018-03-30 15:56 | PT.IPTN ---
Current Diagnoses Sepsis, unspecified organism (03/22/18) Surgery Performed Operation Date: 03/22/18 16:15 Actual Procedures p Exploratory Laparotomy, small bowel resection with ileocolic anastomosis - Senthil Bright MD Physical Therapy Treatment Note M2 PT-IP Current Condition Start: 03/23/18 13:31 Freq: Status: Active Protocol: Document 03/23/18 13:31 RCC (Rec: 03/23/18 13:43 RCC [id number]) Physical Therapy Current Condition Current Condition Evaluation Date 03/23/18 Treatment Diagnosis abdominal pain s/p ex. lap. small bowel resection, impaired mobility Onset Date 03/22/18 Precautions Abdominal Surgery Precautions Log Roll Lifting Restrictions Gait Belt above Incisional Area Other Precautions CHRISTINA drain, blount catheter, NG tube, thoraic epidural M3 PT-IP Subjective Start: 03/23/18 13:31 Freq: Status: Active Protocol: Document 03/30/18 15:56 CLB (Rec: 03/30/18 15:56 CLB [id number]) Subjective Physical Therapy Visit Type Type Patient Refusal Notes Pt stated she just got back to bed and would walk with nursing this evening. Goals Bed Mobility Goal Standby Assistance Transfer Goal Standby Assistance Gait Goal Standby Assistance Gait Distance 200 Other Goals up/down 2 steps without rails Days to Meet Goals 5 Frequency of Treatment Frequency Of Treatment Twice a Day Treatment Plan Other Recommendations and Next Treatment Continue to progress treatment Focus to improve bed mob, transfer and gait Recommendations To Nursing Amount of Assist Needed 1 Person Assist Discharge Recommendations PT Discharge Recommendations Home with 24/7 Assist Home Health SNF Rehab Other Discharge Recommendations SNF vs home with 24/7 and home health PT Equipment Needed for Home Before pt reports she has FWW at home Discharge and that her house is very small and she can use hallway and furniture to get around
[2018-03-30 16:03] VITALS: BP 127/79; PULSE 89; RESP 15; TEMP 36.8; O2SAT 98
[2018-03-30 17:37] VITALS: O2SAT 96
[2018-03-30] MEDS: ENOXAPARIN 40 MG/0.4 ML SYRINGE SUBCUT (17:55)
--- NOTE | 2018-03-30 18:09 | PC.NURSE ---
Addendum entered by Rosalina Betts R.N. 03/30/18 21:51: Relatively uneventful evening Denies discomfort. IVF continue as per orders. Dsg CDI, no drainage noted. Illeostomy intact. Call light w/in reach, bed alarm on for pt safety. Stable post op course. Continue w/plan of care. Original Note: Pt resting quietly, then sitting on edge of bed for dinner. Denies any discomfort at this time. IV LR infusing into the LUCILLE PICC at 42cc/hr via pump w/o incidense. Illieostomy intact/patent. ' Dsg to midline abdomen CDI. Call light w/in reach. Bed aoalrm on for pt safety.
[2018-03-30] MEDS: LATANOPROST 0.005% OPHTH 2.5 ML 1 DROPS EYE-BOTH (20:38)
[2018-03-30 23:00] VITALS: O2SAT 96
[2018-03-31] MEDS: PIPERACILLIN-TAZO 3.375 GM/50 ML FROZ.PIGGY IV ×5 (01:20→23:42)
[2018-03-31] MEDS: metroNIDAZOLE 500 MG/100 ML PIGGYBACK 100 MG IV ×4 (02:51→22:38)
[2018-03-31 06:08] VITALS: BP 134/77; PULSE 98; RESP 16; TEMP 36.8; O2SAT 97
[2018-03-31 08:30] VITALS: BP 136/83; PULSE 101; RESP 16; TEMP 36.7; O2SAT 99
[2018-03-31 08:51] VITALS: O2SAT 96
[2018-03-31] MEDS: LOSARTAN 50 MG TABLET PO (09:16)
[2018-03-31] MEDS: GABAPENTIN 100 MG CAPSULE 200 MG PO ×2 (09:16→21:32)
[2018-03-31] MEDS: hydroCHLOROthiazide 25 MG TABLET PO (09:16)
[2018-03-31] MEDS: PANTOPRAZOLE 40 MG TABLET PO (09:16)
[2018-03-31 10:00] VITALS: BP 126/83; PULSE 93; RESP 18; TEMP 36.8; O2SAT 97
--- NOTE | 2018-03-31 11:21 | CM.DPC ---
DCP Cont: Spoke to physical therapy team, and stated that patient was doing well on her ambulations, and should be able to go home on home health. Let patient know, this would be doable, as long as patient is comfortable with ostomy, and if she has support of . Therapy team stated that was not leaving after all. Spoke to patient. Stated, she feels that home health would be her best option. Stated that her would be home. Had not yet made a decision as to which home health agency she wanted, as she would need to further discuss this with her . Let her know, that her Medicare should cover this, also has [employer]. P: DCP to continue to assess and offer support for patient's discharge needs. Let her know that discharge planners are available to discuss decision and order from agency of her choice. Patient has also been working with ostomy nurse. Evelia Chen RN/Experimental Psychologist
--- NOTE | 2018-03-31 11:49 | PT.IPTN ---
Addendum entered and electronically signed by Yanet Taylor, PT 03/31/18 11:51: I directly supervised and guided this session. Jeffrey Taylor, DPT Original Note: Current Diagnoses Sepsis, unspecified organism (03/22/18) Surgery Performed Operation Date: 03/22/18 16:15 Actual Procedures p Exploratory Laparotomy, small bowel resection with ileocolic anastomosis - Senthil Bright MD Physical Therapy Treatment Note M2 PT-IP Current Condition Start: 03/23/18 13:31 Freq: Status: Active Protocol: Document 03/23/18 13:31 RCC (Rec: 03/23/18 13:43 RCC [id number]) Physical Therapy Current Condition Current Condition Evaluation Date 03/23/18 Treatment Diagnosis abdominal pain s/p ex. lap. small bowel resection, impaired mobility Onset Date 03/22/18 Precautions Abdominal Surgery Precautions Log Roll Lifting Restrictions Gait Belt above Incisional Area Other Precautions CHRISTINA drain, blount catheter, NG tube, thoraic epidural M3 PT-IP Subjective Start: 03/23/18 13:31 Freq: Status: Active Protocol: Document 03/31/18 10:45 (Rec: 03/31/18 11:42 [email or web address]) Subjective Physical Therapy Visit Type Type Treatment Note Visit Start Time 10:45 Visit Stop Time 11:12 Total Visit Minutes 27 Number of VOCATIONAL TECHNICAL EDUCATION TEACHER Visits 0 Physical Therapy Visit Comments Patient Comments Pt reports feeling better and better. Readily agrees to walking the hallway and performing some strengthening exercise and sit to stands today. She states that her , Ned, is home from travelling and will be availiable to stay home 14/01 to assist her at home. M4 PT-IP Mobility and Gait Start: 03/23/18 13:31 Freq: Status: Active Protocol: Document 03/31/18 10:45 (Rec: 03/31/18 11:42 [email or web address]) PT-Transfer Assessment Sit to and From Stand Sit to and from Stand Standby Assistance Equipment Transfer Assistive Device Gait Belt Front Wheeled Walker Transfer Ability Level of Assist Standby Assistance Comments Mobility Comments Pt performs sit <> stand SBA from chair using FWW and use of BUE. Sit<>stand to/from toilet is performed SBA with FWW and grab bar at R. Gait Assessment Gait Gait Assistance Required: Standby Assistance Distance (Feet) 200 Able to Maintain Weight Bearing Status Yes During Gait Assistive Devices Assistive Device Gait Belt Front Wheeled Walker Gait Deviations General Gait Pattern Decreased Stride Length Decreased Feet Clearance Factors Limiting Gait Function Factors Limiting Gait Function Decreased Activity Tolerance Limited Range of Motion Poor Balance Comments Gait Comments Pt tolerated 200 ft slow ambulation using FWW, SBA today. Vitals 138/79 post activity and no report of dizziness or distress. PT-Balance Assessment Sitting Balance and Reactions Static Sitting Balance Ability Good Standing Balance and Reactions Static Standing Balance Ability Fair Device Used FWW and gait belt, SBA M5 PT-IP Objective Assessments Start: 03/23/18 13:31 Freq: Status: Active Protocol: Document 03/31/18 10:45 (Rec: 03/31/18 11:42 [email or web address]) Strength Lower Extremity Strength Hip 3+/5 Knee 4/5 Ankle 5/5 Comments Strength Comments Strength tested hip flexors and quadriceps only at hip; Limited B at 3+/5. M6 PT-IP Treatment Start: 03/23/18 13:31 Freq: Status: Active Protocol: Document 03/31/18 10:45 (Rec: 03/31/18 11:42 [email or web address]) Physical Therapy Treatment Exercises Exercises Quad Sets Education Education Provided Safety Other Treatments Other Treatment Performed Seated long arc quad sets X20 with 5 sec hold. Instructed to perform 2-3X/day. M7 PT-IP Assessment and Plan Start: 03/23/18 13:31 Freq: Status: Active Protocol: Document 03/31/18 10:45 (Rec: 03/31/18 11:42 [email or web address]) PT Summary Assessment and Plan Potential Rehabilitation Potential Good Summary Assessment Summary Pt demonstrates significant improvement in activitiy tolerance and is currently SBA with sit <>stands and 200ft ambulation using FWW. Pt may be appropriate for d/c to home with 24/7 assist and HH once cleared for safety on stairs as well as safety with amb using 4WW. Treatment Plan Other Recommendations and Next Treatment Assess pt ability to amb using Focus 4WW. Progress to stair training. Recommendations To Nursing Amount of Assist Needed 1 Person Assist Discharge Recommendations PT Discharge Recommendations SNF Rehab Other Discharge Recommendations SNF vs home with 24/7 and home health PT Equipment Needed for Home Before FWW if 4WW deemed Discharge inappropriate.
--- NOTE | 2018-03-31 12:40 | OT.IP.TRT ---
Current Diagnoses Sepsis, unspecified organism (03/22/18) Surgery Performed Operation Date: 03/22/18 16:15 Actual Procedures p Exploratory Laparotomy, small bowel resection with ileocolic anastomosis - Senthil Bright MD Occupational Therapy Treatment Note M2 OT-IP Current Condition Start: 03/30/18 11:25 Freq: Status: Active Protocol: Document 03/30/18 11:25 [facility]3] (Rec: 03/30/18 11:42 [facility]3] [id number]) Occupational Therapy Current Condition Current Condition Evaluation Date 03/30/18 Treatment Diagnosis s/p ex lap. small bowel resection, weakness Diagnosis Onset Date 03/22/18 Post Operative Precautions Abdominal Surgery Precautions Log Roll Lifting Restrictions Gait Belt above Incisional Area M3 OT- IP Subjective and Pain Start: 03/30/18 11:25 Freq: Status: Active Protocol: Document 03/31/18 12:33 [facility]3] (Rec: 03/31/18 12:40 [facility]3] [id number]) OT- Subjective Occupational Therapy Visit Type Type Treatment Note Visit Start Time 11:45 Visit Stop Time 12:00 Total Visit Minutes 15 Occupational Therapy Visit Comments Patient/Caregiver Goals Pt states now going to stay home and feels that going home with home health is prefered now. OT Pain Assessment Pain When Pain Assessed At Rest Pain Present Pain Present Denied Pain M4 OT- IP ADL's Start: 03/30/18 11:25 Freq: Status: Active Protocol: Document 03/30/18 11:25 [facility]3] (Rec: 03/30/18 11:42 [facility]3] [id number]) OT ADL-Grooming Comments OT Grooming Comments Pt states already did this AM with SOFTWARE DESIGN MANAGER. OT ADL-Toileting Comments OT Toileting Comments Pt states already just used the toilet earlier. M6 OT- IP Functional Cognition Start: 03/30/18 11:25 Freq: Status: Active Protocol: Document 03/31/18 12:33 [facility]3] (Rec: 03/31/18 12:40 [facility]3] [id number]) Cognitive Factors Limiting Selfcare Function Cognitive Ability Level of Alertness Alert Patient Orientation Name Age Birthday Month Date Year Day of Week Place Situation Attention Span Ability Capable of Focused Attention Capable of Sustained Attention Ability to Follow Commands Able to Follow Multi-Step Commands Memory Description No Deficits Noted Cognitive Tests ACL VC to push up from arm rests before standing. Pt states will be able to prepare soft food for her or get grocery delivery from [employer]. M7 OT- IP Mobility and Balance Start: 03/30/18 11:25 Freq: Status: Active Protocol: Document 03/31/18 12:33 [facility]3] (Rec: 03/31/18 12:40 [facility]3] [id number]) OT-Transfer Assessment Sit to and From Stand Sit to and from Stand Standby Assistance Comments Mobility Comments Pt states use of 4WW outdoors, attempted 4WW in the room and pt needing more stability and therefore at this time, Fww would be the best. OT- Balance Assessment Standing Balance and Reactions Static Standing Balance Ability Fair Dynamic Standing Balance Ability Poor M8 OT- IP Objective Assessments Start: 03/30/18 11:25 Freq: Status: Active Protocol: Document 03/30/18 11:25 [facility]3] (Rec: 03/30/18 11:42 [facility]3] [id number]) OT Gross Range of Motion Upper Extremity Range of Motion Assessment Within Functional Limits OT Strength Comments Strength Comments Pt right hand dominant however strength equal between right and left hand/arm 4-/5. OT-Muscle Tone Assessment Muscle Tone WNL Yes M9 OT- IP Assessment and Plan Start: 03/30/18 11:25 Freq: Status: Active Protocol: Document 03/31/18 12:33 [facility]3] (Rec: 03/31/18 12:40 [facility]3] [id number]) OT Summary Assessment and Plan Potential Rehabilitation Potential Excellent Analytic Complexity at Evaluation Low Summary OT Impairments Strength Balance Functional Mobility Dressing Bathing Toilet Transfers Shower Transfers Progress Towards Goals Progressing Toward Goals Assessment Summary Pt now feels home health more appropriate as doing well and will be home to assist for all needs now. Pt given user experience developer to help assist for LB dressing needs due discomfort while leaning forwards at times. Therefore recommend pt home with and home health. Goals Shower Transfer Goal Standby Assistance Patient/Caregiver Education Goal Caregiver Independent Assisting Patient Days to Meet Goals 2 Frequency of Treatment Frequency Of Treatment Once a Day Treatment Plan OT Treatment Plan ADL Training Patient/Family Education Discharge Planning Other Treatment Recommendations and Next Shower/energy conservation Treatment Focus Discharge Recommendations OT Discharge Recommendations Home with Assistance Home Health Home Equipment Needs shower chair if built in seat too low
--- NOTE | 2018-03-31 13:40 | DIET.PN ---
One week post SB resection w/ileostomy. Has been on TPN since surgery. Started taking PO liquids over weekend and tolerating well. Eating 25-100% liquid meals DIET: Full liquids Appears pt adequately nourished DICE MANAGER, but high risk for nutritional compromise r/t ER surgery, inability to take PO nutrition for approx 1 week. Would benefit from targeted nutrition post surgery. Have added Ensure Surgery Immunonutrition to meals BID.
--- NOTE | 2018-03-31 14:47 | CM.DPC ---
DCP Cont: Patient's , Ned called. Stated that he had spoken to his , and feels that usp would not be in her benefit, for she would rather go home. Discussed different home health agencies, and stated that he would stop by and see his and make that decision after talking to her. Asked if he was feeling comfortable with ostomy, and stated he was, but also knows that it would be helpful having home health come in to continue teaching, and work with supplies. P: will talk to and meet with DCP. As soon as decision is made, will call agency and inquire on how soon they can come out to see patient. This is pending discharge as well. Evelia Chen RN/Parking Regulation Enforcement Officer
--- NOTE | 2018-03-31 15:23 | CM.DPC ---
DCP Cont: Had small conference with patient's Ned, as well as with Dr. Mueller, surgeon. Discussed patient's choice to use home health. is wanting to research each agency before making decision. Dr. Mueller is aware with this also, and will discharge when ready. Have face to face already signed. P: will make his decision tomorrow, Saturday, as to which agency is of his choosing, and will let this director of casework know, as well as when the surgeon comes in tomorrow. At that time, can let know turn around time of when they can see patient. Evelia Chen RN/Skein Drier
--- NOTE | 2018-03-31 15:52 | PM.PN.1 ---
Subjective Date Patient Seen: 03/31/18 Time Patient Seen: 15:52 Interval history: Maria Dolores is in reasonably good spirits. She reports that she is eating pretty well and she feels like her is going to be able to take care of her ostomy without much difficulty. Her came in today while we were talking and examining. He is accompanied by the discharge planning service. Both Page and her would prefer going home with home health for support. They are still examining the different agencies and are planning to make a decision by tomorrow regarding which when they would like to go with. Page denies any nausea and reports that she is eating better. Exam Vital Signs (past 8 hours): - 03/31/18 08:30 03/31/18 08:51 03/31/18 10:00 Temperature 98.0 F 98.2 F Pulse Rate 101 H 93 H Respiratory Rate 16 18 Blood Pressure 136/83 126/83 Pulse Oximetry 99 96 97 Fraction of Inspired Oxygen 21 Oxygen Delivery Method Room Air Oxygen Flow Rate 0 Narrative Exam Narrative: Lungs are clear bilaterally Heart: Regular rate and rhythm Abdomen: Soft, ostomy is viable and functioning. Active bowel sounds. Extremities: Warm and well perfused. Objective Labs Result Diagrams: 03/29/18 04:38 03/29/18 04:38 Assessment & Plan Plan: Assessment/Plan Narrative: Nine days status post laparotomy for excision of stricture at the anastomotic site. She is doing better and better each day. Her last labs were checked on the and she had a significant white count at that time. I will reorder labs for the morning.
[2018-03-31 16:00] VITALS: BP 123/88; PULSE 99; RESP 18; TEMP 36.6; O2SAT 97
[2018-03-31] MEDS: LACTATED RINGERS 1,000 ML 42 ML IV (16:05)
--- NOTE | 2018-03-31 16:15 | PC.NURSE ---
Addendum entered by Rosalina Betts R.N. 03/31/18 22:04: Relatively uneventful evening. Denies discomfort. IVF continues as per orders. Illeostomy intact. Dsg CDI. Stable post op course. Call light w/in reach, bed alarm on for pt safety. Continue w/plan of care. Original Note: Pt awake, denies any discomfort at this time. Ambulated in hallway w/ PT w/o incidence. Up in chair for dinner. IV fluids infusing via pump as per orders. Illeostomy intact/patent. Midline dsg CDI. Call light w/in reach.
--- NOTE | 2018-03-31 17:17 | PT.IPTN ---
Current Diagnoses Sepsis, unspecified organism (03/22/18) Surgery Performed Operation Date: 03/22/18 16:15 Actual Procedures p Exploratory Laparotomy, small bowel resection with ileocolic anastomosis - Snethil Bright MD Physical Therapy Treatment Note M2 PT-IP Current Condition Start: 03/23/18 13:31 Freq: Status: Active Protocol: Document 03/23/18 13:31 RCC (Rec: 03/23/18 13:43 RCC [id number]) Physical Therapy Current Condition Current Condition Evaluation Date 03/23/18 Treatment Diagnosis abdominal pain s/p ex. lap. small bowel resection, impaired mobility Onset Date 03/22/18 Precautions Abdominal Surgery Precautions Log Roll Lifting Restrictions Gait Belt above Incisional Area Other Precautions CHRISTINA drain, blount catheter, NG tube, thoraic epidural M3 PT-IP Subjective Start: 03/23/18 13:31 Freq: Status: Active Protocol: Document 03/31/18 15:45 CLB (Rec: 03/31/18 17:16 CLB [id number]) Subjective Physical Therapy Visit Type Type Treatment Note Visit Start Time 15:45 Visit Stop Time 16:15 Total Visit Minutes 30 Number of LEGAL ACTIVITY ADJUDICATOR Visits 1 Physical Therapy Visit Comments Patient Comments Pt agreeable to do therapy. Therapy Pain Assessment Pain When Pain Assessed During Mobility Pain Present Pain Present Denied Pain M4 PT-IP Mobility and Gait Start: 03/23/18 13:31 Freq: Status: Active Protocol: Document 03/31/18 15:45 CLB (Rec: 03/31/18 17:16 CLB [id number]) PT-Bed Mobility Assessment Rolling Type of Rolling Log Rolling Level of Assist Standby Assistance Supine to Sit Supine to Sit Standby Assistance Scooting Scooting to Edge of Bed Independent PT-Transfer Assessment Sit to and From Stand Sit to and from Stand Standby Assistance Equipment Transfer Assistive Device Gait Belt Front Wheeled Walker Transfers Transfer Destination Chair Toilet Transfer Ability Level of Assist Standby Assistance Gait Assessment Gait Gait Assistance Required: Standby Assistance Distance (Feet) 200 Able to Maintain Weight Bearing Status Yes During Gait Assistive Devices Assistive Device Gait Belt Front Wheeled Walker Gait Deviations General Gait Pattern Decreased Stride Length Decreased Feet Clearance Factors Limiting Gait Function Factors Limiting Gait Function Decreased Activity Tolerance Decreased Strength Comments Gait Comments Pt needing cues for posture and needed two rest breaks. M5 PT-IP Objective Assessments Start: 03/23/18 13:31 Freq: Status: Active Protocol: Document 03/31/18 10:45 (Rec: 03/31/18 11:42 [id number]) Strength Lower Extremity Strength Hip 3+/5 Knee 4/5 Ankle 5/5 Comments Strength Comments Strength tested hip flexors and quadriceps only at hip; Limited B at 3+/5. M6 PT-IP Treatment Start: 03/23/18 13:31 Freq: Status: Active Protocol: Document 03/31/18 15:45 CLB (Rec: 03/31/18 17:16 CLB [id number]) Physical Therapy Treatment Exercises Exercises Ankle Pumps Gluteal Sets Quad Sets Seated Knee Flexion/Extension M7 PT-IP Assessment and Plan Start: 03/23/18 13:31 Freq: Status: Active Protocol: Document 03/31/18 15:45 CLB (Rec: 03/31/18 17:16 CLB [id number]) PT Summary Assessment and Plan Summary Assessment Summary Pt improving with all mobility with increased activity tolerance. Pt may be appropriate for d/c to home with 24/7 assist and HH once cleared for safety on stairs as well as safety with amb using 4WW. Goals Bed Mobility Goal Standby Assistance Transfer Goal Standby Assistance Gait Goal Standby Assistance Gait Distance 200 Other Goals up/down 2 steps without rails Days to Meet Goals 5 Frequency of Treatment Frequency Of Treatment Twice a Day Treatment Plan Other Recommendations and Next Treatment Assess pt ability to amb using Focus 4WW. Progress to stair training. Recommendations To Nursing Amount of Assist Needed 1 Person Assist Discharge Recommendations PT Discharge Recommendations SNF Rehab Other Discharge Recommendations SNF vs home with 24/7 and home health PT Equipment Needed for Home Before FWW if 4WW deemed Discharge inappropriate.
[2018-03-31] MEDS: ENOXAPARIN 40 MG/0.4 ML SYRINGE SUBCUT (17:56)
[2018-03-31 20:04] VITALS: BP 135/81; PULSE 98; RESP 18; TEMP 36.7; O2SAT 99
[2018-03-31] MEDS: LATANOPROST 0.005% OPHTH 2.5 ML 1 DROPS EYE-BOTH (21:33)
[2018-03-31] MEDS: SODIUM CHLORIDE 0.9% FLUSH 10 ML IV (21:33)
[2018-04-01] VITALS: O2SAT 99
[2018-04-01] MEDS: metroNIDAZOLE 500 MG/100 ML PIGGYBACK 100 MG IV ×2 (04:11→09:09)
[2018-04-01] MEDS: PANTOPRAZOLE 40 MG TABLET PO (06:16)
[2018-04-01] MEDS: PIPERACILLIN-TAZO 3.375 GM/50 ML FROZ.PIGGY IV ×2 (06:16→11:53)
[2018-04-01 06:20] VITALS: BP 120/78; PULSE 93; RESP 19; TEMP 37.1; O2SAT 98
[2018-04-01 06:45] LABS: Add Manual Diff / Slide Review NO; Basophils Percent Auto 0.6 % (0-2); Eosinophils Percent Auto 0.9 % (2-4); Hematocrit 31.1 % (36-46); Hemoglobin 10.3 g/dL (12.0-16.0); Lymphocytes Percent Auto 53.9 % (25-40); Mean Corpuscular HGB Conc 33.3 % (30-36); Mean Corpuscular Hemoglobin 29.2 PG (26-34); Mean Corpuscular Volume 87.8 fL (80-100); Monocytes Percent Auto 3.7 % (3-14); Neutrophils Absolute Auto 7000 /uL (3000-5900); Neutrophils Percent Auto 40.9 % (50-75); Platelet Count 462 X10^3/uL (150-400); Red Blood Cell Count 3.54 X10^6/uL (4.0-5.2); Red Cell Distribution Width 17.5 % (11.6-14.8); White Blood Cell Count 17.2 X10^3/uL (4.5-11.0)
[2018-04-01 06:55] LABS: Blood Urea Nitrogen 10 mg/dL (7-17); Calcium 8.4 mg/dL (8.4-10.2); Carbon Dioxide 29 mmol/L (22-32); Chloride 103 mmol/L (98-107); Estimated Glomerular Filt Rate > 60.0 mL/min (>60); Glucose 82 mg/dL (80-110); HEMOLYSIS 18 (0-50); Potassium 3.5 mmol/L (3.4-5.1); Sodium 137 mmol/L (137-145)
[2018-04-01 07:35] VITALS: BP 138/84; PULSE 84; RESP 18; TEMP 36.8; O2SAT 99
[2018-04-01 08:49] VITALS: O2SAT 96
[2018-04-01] MEDS: LOSARTAN 50 MG TABLET PO (09:09)
[2018-04-01] MEDS: hydroCHLOROthiazide 25 MG TABLET PO (09:09)
[2018-04-01] MEDS: GABAPENTIN 100 MG CAPSULE 200 MG PO ×2 (09:09→20:03)
--- NOTE | 2018-04-01 10:52 | PT.IPTN ---
Current Diagnoses Sepsis, unspecified organism (03/22/18) Surgery Performed Operation Date: 03/22/18 16:15 Actual Procedures p Exploratory Laparotomy, small bowel resection with ileocolic anastomosis - Senthil Bright MD Physical Therapy Treatment Note M2 PT-IP Current Condition Start: 03/23/18 13:31 Freq: Status: Active Protocol: Document 03/23/18 13:31 RCC (Rec: 03/23/18 13:43 RCC [id number]) Physical Therapy Current Condition Current Condition Evaluation Date 03/23/18 Treatment Diagnosis abdominal pain s/p ex. lap. small bowel resection, impaired mobility Onset Date 03/22/18 Precautions Abdominal Surgery Precautions Log Roll Lifting Restrictions Gait Belt above Incisional Area Other Precautions CHRISTINA drain, blount catheter, NG tube, thoraic epidural M3 PT-IP Subjective Start: 03/23/18 13:31 Freq: Status: Active Protocol: Document 04/01/18 10:40 CLB (Rec: 04/01/18 10:52 CLB [id number]) Subjective Physical Therapy Visit Type Type Patient Refusal Notes Pt states she is not feeling well and needs to see the RN. RN notified.Will check back with pt this afternoon. Goals Bed Mobility Goal Standby Assistance Transfer Goal Standby Assistance Gait Goal Standby Assistance Gait Distance 200 Other Goals up/down 2 steps without rails Days to Meet Goals 5 Frequency of Treatment Frequency Of Treatment Twice a Day Treatment Plan Other Recommendations and Next Treatment Assess pt ability to amb using Focus 4WW. Progress to stair training. Recommendations To Nursing Amount of Assist Needed 1 Person Assist Discharge Recommendations PT Discharge Recommendations SNF Rehab Other Discharge Recommendations SNF vs home with / and home health PT Equipment Needed for Home Before FWW if 4WW deemed Discharge inappropriate.
--- NOTE | 2018-04-01 11:21 | PC.NURSE ---
Day shift: Pt c/o sensation of having to have BM from rectum and she was worried about it. Called and talked to Dr Verdin and he stated that this was normal. Pt made aware of this being normal per MD. Will continue to monitor. Call light in reach. Small Allyven dressing placed on rt upper buttox over small blistered area.
--- NOTE | 2018-04-01 12:43 | CM.DPC ---
DCP Cont: Called and reached out to spouse, Cris, inquiring if he had time to review various home health agencies. Stated that he was thinking that [facility] may be his first choice, and [facility] second. He stated that he had received a call from MD, that patient would not be released today. Went ahead and made copies of last note from ostomy nurse, and clinical notes to have ready upon discharge. P: DCP to continue to follow up on discharge, plan is home health between [facility] or [facility]. Evelia Chen RN/Business Associate
--- NOTE | 2018-04-01 13:53 | PT.IPTN ---
Current Diagnoses Sepsis, unspecified organism (03/22/18) Surgery Performed Operation Date: 03/22/18 16:15 Actual Procedures p Exploratory Laparotomy, small bowel resection with ileocolic anastomosis - Senthil Bright MD Physical Therapy Treatment Note M2 PT-IP Current Condition Start: 03/23/18 13:31 Freq: Status: Active Protocol: Document 03/23/18 13:31 RCC (Rec: 03/23/18 13:43 RCC [id number]) Physical Therapy Current Condition Current Condition Evaluation Date 03/23/18 Treatment Diagnosis abdominal pain s/p ex. lap. small bowel resection, impaired mobility Onset Date 03/22/18 Precautions Abdominal Surgery Precautions Log Roll Lifting Restrictions Gait Belt above Incisional Area Other Precautions CHRISTINA drain, blount catheter, NG tube, thoraic epidural M3 PT-IP Subjective Start: 03/23/18 13:31 Freq: Status: Active Protocol: Document 04/01/18 13:53 CLB (Rec: 04/01/18 13:53 CLB [id number]) Subjective Physical Therapy Visit Type Type Patient Refusal Notes Pt stated she just wants to go to bed to sleep. Will check back with pt in the morning. Goals Bed Mobility Goal Standby Assistance Transfer Goal Standby Assistance Gait Goal Standby Assistance Gait Distance 200 Other Goals up/down 2 steps without rails Days to Meet Goals 5 Frequency of Treatment Frequency Of Treatment Twice a Day Treatment Plan Other Recommendations and Next Treatment Assess pt ability to amb using Focus 4WW. Progress to stair training. Recommendations To Nursing Amount of Assist Needed 1 Person Assist Discharge Recommendations PT Discharge Recommendations SNF Rehab Other Discharge Recommendations SNF vs home with 24/ and home health PT Equipment Needed for Home Before FWW if 4WW deemed Discharge inappropriate.
[2018-04-01] MEDS: POTASSIUM CHLORIDE 20 MEQ/15 ML UDC PO (13:55)
--- NOTE | 2018-04-01 14:50 | CM.DPC ---
DCP Cont: Called [facility] to find out turn around time to prepare patient for when she gets discharged. They do not take [employer], for patient has Medicare/AARP. Went ahead and called Tori at [facility], and they do take patient's insurance. Is asking that we fax over clinicals to her, in preparation, should patient be discharged. Will have Viola fax over clinicals. Included note from lydia Tom nurse. P: DCP to continue to assess. Will use [facility] upon discharge. Evelia Chen, MATTHEW/Studio Set Up Worker
[2018-04-01 15:41] VITALS: BP 120/66; PULSE 87; RESP 20; TEMP 36.2; O2SAT 100
--- NOTE | 2018-04-01 16:24 | OT.IP.TRT ---
Current Diagnoses Sepsis, unspecified organism (03/22/18) Surgery Performed Operation Date: 03/22/18 16:15 Actual Procedures p Exploratory Laparotomy, small bowel resection with ileocolic anastomosis - Senthil Bright MD Occupational Therapy Treatment Note M2 OT-IP Current Condition Start: 03/30/18 11:25 Freq: Status: Active Protocol: Document 03/30/18 11:25 CCC (Rec: 03/30/18 11:42 CCC [id number]) Occupational Therapy Current Condition Current Condition Evaluation Date 03/30/18 Treatment Diagnosis s/p ex lap. small bowel resection, weakness Diagnosis Onset Date 03/22/18 Post Operative Precautions Abdominal Surgery Precautions Log Roll Lifting Restrictions Gait Belt above Incisional Area M3 OT- IP Subjective and Pain Start: 03/30/18 11:25 Freq: Status: Active Protocol: Document 04/01/18 16:24 PJM (Rec: 04/01/18 17:03 PJM [id number]) OT- Subjective Occupational Therapy Visit Type Type Treatment Note Visit Start Time 15:40 Visit Stop Time 16:24 Total Visit Minutes 44 Notes Pt requesting to walk in halls; performs slowly . Occupational Therapy Visit Comments Patient/Caregiver Goals to go home this week OT Pain Assessment Pain When Pain Assessed After Treatment Pain Present Pain Present Denied Pain M4 OT- IP ADL's Start: 03/30/18 11:25 Freq: Status: Active Protocol: Document 04/01/18 16:24 PJM (Rec: 04/01/18 17:03 PJM [id number]) OT [id number] General Evaluation Diet Level for Self-Feeding general Self-Feeding Ability Independent Comments OT Self-Feeding Comments pt reports decreased appetite OT ADL-Grooming General Evaluation Grooming Ability Standby Assistance Areas Needing Assistance Combing/Brushing Hair Face Washing Comments OT Grooming Comments standing at sink with FWW for 4 min this session OT ADL-Oral Care Comments Oral Care Comments pt declined this session OT ADL-Dressing General Eval Lower Body Dressing Ability Independent Areas Needing Assistance Socks Shoes Assistive Devices Dressing Assistive Devices Mall Manager Comments OT Dressing Comments no DME needed for dressing, pt using medical office worker to retrieve dropped time from floor OT ADL-Toileting General Evaluation Toileting Ability Standby Assistance Areas Needing Assistance Manage Clothing Perform Perineal Hygiene Comments OT Toileting Comments pt working with explosives operator re: ostomy care; pt seen for urination only this session OT ADL-Bathing Comments OT Bathing Comments pt agreed to take shower in AM ; pt has all necessary DME at home M7 OT- IP Mobility and Balance Start: 03/30/18 11:25 Freq: Status: Active Protocol: Document 04/01/18 16:24 PJM (Rec: 04/01/18 17:03 PJM [id number]) OT- Bed Mobility Assessment Rolling Type of Rolling Roll to Right Level of Assistance Standby Assistance Supine to Sit Supine to Sit Assist Standby Assistance Head of Bed Elevated Scooting Scooting to Edge of Bed Independent OT-Transfer Assessment Sit to and From Stand Sit to and from Stand Contact Guard Assistance Transfers Transfer Ability Standby Assistance Technique Transfer Destination Chair Toilet Devices Transfer Assistive Devices Gait Belt Front Wheeled Walker Comments Mobility Comments Pt has low toilet at home; provided education re: methods to increase height of toilet at home OT- Gait Assessment Gait Gait Assistance Required: Standby Assistance Contact Guard Assist Distance (Feet) 200+ Assistive Devices Assistive Device Gait Belt Front Wheeled Walker Comments Gait Ability Comments pt requesting to walk loop around [facility] OT- Balance Assessment Sitting Balance and Reactions Static Sitting Balance Ability Good Dynamic Sitting Balance Ability Good Standing Balance and Reactions Static Standing Balance Ability Good Dynamic Standing Balance Ability Good Comments Other Balance Tests/Deviations/Treatment during standing for lower body : clothing management M8 OT- IP Objective Assessments Start: 03/30/18 11:25 Freq: Status: Active Protocol: Document 03/30/18 11:25 CCC (Rec: 03/30/18 11:42 CCC [id number]) OT Gross Range of Motion Upper Extremity Range of Motion Assessment Within Functional Limits OT Strength Comments Strength Comments Pt right hand dominant however strength equal between right and left hand/arm 4-/5. OT-Muscle Tone Assessment Muscle Tone WNL Yes M9 OT- IP Assessment and Plan Start: 03/30/18 11:25 Freq: Status: Active Protocol: Document 04/01/18 16:24 PJM (Rec: 04/01/18 17:03 PJ [id number]) OT Summary Assessment and Plan Potential Rehabilitation Potential Good Summary OT Impairments Strength Assessment Summary Pt stating she did not feel well this AM, but now would like to get OOB and walk. Pt making good progress with bed mobility, toilet transfers, reno care, grooming while standing at sink and lower body dressing and is SBA with these tasks.Pt walked 200+ ft with FWW with close SBA this session. Waffle cushion provided as pt has wound on L buttock. Discussed with RN. Pt agreed to shower in AM. Pt motivated to regain strength and independence as needed to return home where she will have 24 hr assist from . Recommend HH services at discharge. Goals Grooming Goal Independent Dressing Goal Independent Toileting Goal Independent Bathing Goal Standby Assistance Toilet Transfer Goal Independent Shower Transfer Goal Standby Assistance Patient/Caregiver Education Goal Caregiver Independent Assisting Patient Days to Meet Goals 2 Treatment Plan OT Treatment Plan ADL Training Patient/Family Education Discharge Planning Other Treatment Recommendations and Next Shower/energy conservation Treatment Focus Discharge Recommendations OT Discharge Recommendations Home with Assistance Home Health Home Equipment Needs shower chair if built in seat too low RTS if needed
[2018-04-01] MEDS: ENOXAPARIN 40 MG/0.4 ML SYRINGE SUBCUT (20:00)
[2018-04-01] MEDS: LATANOPROST 0.005% OPHTH 2.5 ML 1 DROPS EYE-BOTH (20:03)
[2018-04-01] MEDS: LACTATED RINGERS 1,000 ML 42 ML IV (20:40)
[2018-04-02] VITALS: O2SAT 98
[2018-04-02 00:20] VITALS: BP 138/89; PULSE 96; RESP 20; TEMP 36.9; O2SAT 98
[2018-04-02] MEDS: SODIUM CHLORIDE 0.9% FLUSH 10 ML IV (05:47)
[2018-04-02 06:12] LABS: Blood Urea Nitrogen 8 mg/dL (7-17); Calcium 8.7 mg/dL (8.4-10.2); Carbon Dioxide 28 mmol/L (22-32); Chloride 104 mmol/L (98-107); Estimated Glomerular Filt Rate > 60.0 mL/min (>60); Glucose 76 mg/dL (80-110); HEMOLYSIS < 15 (0-50); Potassium 3.6 mmol/L (3.4-5.1); Sodium 138 mmol/L (137-145)
[2018-04-02 06:26] LABS: Hematocrit 31.9 % (36-46); Hemoglobin 10.7 g/dL (12.0-16.0); Mean Corpuscular HGB Conc 33.4 % (30-36); Mean Corpuscular Hemoglobin 29.2 PG (26-34); Mean Corpuscular Volume 87.5 fL (80-100); Platelet Count 518 X10^3/uL (150-400); Red Blood Cell Count 3.65 X10^6/uL (4.0-5.2); Red Cell Distribution Width 17.6 % (11.6-14.8); White Blood Cell Count 17.3 X10^3/uL (4.5-11.0)
[2018-04-02 06:27] LABS: Procalcitonin 0.08 ng/mL (<0.5)
[2018-04-02 06:29] LABS: Add Manual Diff / Slide Review YES
[2018-04-02 06:44] LABS: Neutrophils Absolute Manual 6747 /uL (3000-5900); Total Cells Counted 100
[2018-04-02 06:45] LABS: Smudge Cells 2+
[2018-04-02 08:10] VITALS: BP 133/75; PULSE 94; RESP 18; TEMP 36.8; O2SAT 98
[2018-04-02] MEDS: PANTOPRAZOLE 40 MG TABLET PO (09:10)
[2018-04-02] MEDS: GABAPENTIN 100 MG CAPSULE 200 MG PO (09:10)
[2018-04-02 09:11] VITALS: BP 133/75
[2018-04-02] MEDS: hydroCHLOROthiazide 25 MG TABLET PO (09:11)
[2018-04-02] MEDS: LOSARTAN 50 MG TABLET PO (09:11)
--- NOTE | 2018-04-02 11:25 | OT.IP.TRT ---
Current Diagnoses Sepsis, unspecified organism (03/22/18) Surgery Performed Operation Date: 03/22/18 16:15 Actual Procedures p Exploratory Laparotomy, small bowel resection with ileocolic anastomosis - Senthil Bright MD Occupational Therapy Treatment Note M3 OT- IP Subjective and Pain Start: 03/30/18 11:25 Freq: Status: Active Protocol: Document 04/02/18 11:25 PJM (Rec: 04/02/18 16:16 PJM [id number]) OT- Subjective Occupational Therapy Visit Type Type Treatment Note Visit Start Time 10:23 Visit Stop Time 11:25 Total Visit Minutes 62 Occupational Therapy Visit Comments Patient Comments I want to shower before I go home. Patient/Caregiver Goals to go home today OT Pain Assessment Pain When Pain Assessed After Treatment Pain Present Pain Present Denied Pain M4 OT- IP ADL's Start: 03/30/18 11:25 Freq: Status: Active Protocol: Document 04/02/18 11:25 PJM (Rec: 04/02/18 16:16 PJ [id number]) OT [id number] General Evaluation Self-Feeding Ability Independent OT ADL-Grooming General Evaluation Grooming Ability Independent Comments OT Grooming Comments standing at sink with FWW OT ADL-Oral Care Comments Oral Care Comments standing at sink with FWW OT ADL-Dressing General Eval Upper Body Dressing Ability Independent Lower Body Dressing Ability Independent Minimal Assistance Comments OT Dressing Comments min assist with waistband of pants due to tight fit and to problem solve ostomy bag position OT ADL-Toileting General Evaluation Toileting Ability Standby Assistance Comments OT Toileting Comments min verbal cues to problem solve closure on ostomy bag OT ADL-Bathing Bathing Type Bathing Type Shower General Evaluation Bathing Ability Standby Assistance Areas Needing Assistance Retrieving/Setting Up Items Devices Bathing Equipment Hand Held Shower Sprayer Shower Chair with Arms Grab Bars Comments OT Bathing Comments Pt stood for 80% of shower with no LOB noted, pt sat to wash/dry feet and lower legs M7 OT- IP Mobility and Balance Start: 03/30/18 11:25 Freq: Status: Active Protocol: Document 04/02/18 11:25 PJM (Rec: 04/02/18 16:16 PJ [id number]) OT-Transfer Assessment Sit to and From Stand Sit to and from Stand Standby Assistance Transfers Transfer Ability Standby Assistance Technique Transfer Destination Chair Shower Stall Toilet Transfer Technique Stand Step Pivot Devices Transfer Assistive Devices Front Wheeled Walker Comments Mobility Comments Pt prefers FWW as 4WW goes too fast and is too big. OT- Gait Assessment Gait Gait Assistance Required: Standby Assistance Distance (Feet) 25 Assistive Devices Assistive Device Front Wheeled Walker OT- Balance Assessment Sitting Balance and Reactions Static Sitting Balance Ability Good Dynamic Sitting Balance Ability Good Standing Balance and Reactions Static Standing Balance Ability Good Dynamic Standing Balance Ability Good M9 OT- IP Assessment and Plan Start: 03/30/18 11:25 Freq: Status: Active Protocol: Document 04/02/18 11:25 PJM (Rec: 04/02/18 16:16 PJM [id number]) OT Summary Assessment and Plan Potential Rehabilitation Potential Good Summary Progress Towards Goals Safe For Discharge Goals Met Assessment Summary All OT goals achieved for this admission. Pt to d/c home today with 24 hr assist from supportive . Frequency of Treatment Frequency Of Treatment Discharge Discharge Recommendations OT Discharge Recommendations Home with 24/7 Assist
--- NOTE | 2018-04-02 11:40 | PT.IPTN ---
Current Diagnoses Sepsis, unspecified organism (03/22/18) Surgery Performed Operation Date: 03/22/18 16:15 Actual Procedures p Exploratory Laparotomy, small bowel resection with ileocolic anastomosis - Senthil Bright MD Physical Therapy Treatment Note M2 PT-IP Current Condition Start: 03/23/18 13:31 Freq: Status: Active Protocol: Document 03/23/18 13:31 RCC (Rec: 03/23/18 13:43 RCC [id number]) Physical Therapy Current Condition Current Condition Evaluation Date 03/23/18 Treatment Diagnosis abdominal pain s/p ex. lap. small bowel resection, impaired mobility Onset Date 03/22/18 Precautions Abdominal Surgery Precautions Log Roll Lifting Restrictions Gait Belt above Incisional Area Other Precautions HCRISTINA drain, blount catheter, NG tube, thoraic epidural M3 PT-IP Subjective Start: 03/23/18 13:31 Freq: Status: Active Protocol: Document 04/02/18 11:40 GGD (Rec: 04/02/18 12:04 GGD [id number]) Subjective Physical Therapy Visit Type Type Treatment Note Visit Start Time 11:15 Visit Stop Time 11:40 Total Visit Minutes 25 Number of DISTRIBUTION SUPERINTENDENT Visits 2 Physical Therapy Visit Comments Patient Comments Pt ready to walk and hopes to D/C home today. M4 PT-IP Mobility and Gait Start: 03/23/18 13:31 Freq: Status: Active Protocol: Document 04/02/18 11:40 GGD (Rec: 04/02/18 12:04 GGD [id number]) PT-Transfer Assessment Sit to and From Stand Sit to and from Stand Standby Assistance Use of Upper Extremities Equipment Transfer Assistive Device Gait Belt 4 Wheeled Walker Orthotic/Prosthetic Devices or Brace: No Transfers Transfer Destination Chair Transfer Ability Level of Assist Standby Assistance Use of Upper Extremities Gait Assessment Gait Gait Assistance Required: Standby Assistance Distance (Feet) 220 Able to Maintain Weight Bearing Status Yes During Gait Assistive Devices Assistive Device Gait Belt 4 Wheeled Walker Orthotic/Prosthetic Devices or Brace: No Stair Climbing Assessment Evaluation Level of Assist On Stairs Contact Guard Assistance Devices Stair Climbing Assistive Devices Left Railing Right Railing Technique/Endurance Stair Climbing Direction Ascend and Descend Stair Climbing Technique Step to Step Number of Steps Climbed 3 Query Text: Stair Climbing Set # Repetitions (reps) 1 Comments Stair Climbing Comments Pt had light use of UE on rails with stair mobility. M5 PT-IP Objective Assessments Start: 03/23/18 13:31 Freq: Status: Active Protocol: Document 03/31/18 10:45 (Rec: 03/31/18 11:42 [id number]) Strength Lower Extremity Strength Hip 3+/5 Knee 4/5 Ankle 5/5 Comments Strength Comments Strength tested hip flexors and quadriceps only at hip; Limited B at 3+/5. M6 PT-IP Treatment Start: 03/23/18 13:31 Freq: Status: Active Protocol: Document 03/31/18 15:45 CLB (Rec: 03/31/18 17:16 CLB [id number]) Physical Therapy Treatment Exercises Exercises Ankle Pumps Gluteal Sets Quad Sets Seated Knee Flexion/Extension M7 PT-IP Assessment and Plan Start: 03/23/18 13:31 Freq: Status: Active Protocol: Document 04/02/18 11:40 GGD (Rec: 04/02/18 12:04 GGD [id number]) PT Summary Assessment and Plan Summary Assessment Summary Pt improving with mobility. She was safe and stable with gait with 4WW and no LOB. She a slow gait pace, but didn't need standing rest breaks. She was safe with stair mobility. Frequency of Treatment Frequency Of Treatment Twice a Day Treatment Plan Other Recommendations and Next Treatment Assess pt ability to amb using Focus 4WW. Recommendations To Nursing Amount of Assist Needed 1 Person Assist Discharge Recommendations PT Discharge Recommendations Home with Assistance Home Health
--- NOTE | 2018-04-02 13:05 | CM.DPC ---
Addendum entered by Maribel Borjas LPN 04/02/18 14:37: Dr. Bright arrived, saw pt and confirmed pt is ready for d/c as long as her is all ready for her at home. Called him, he confirms same and says he will be right over. [facility] is updated via . Face/Face paperwork and HH RN orders are now completed and faxed to [facility] along with the d/c summary. Confirmed that Robertk will be the primary contact for [facility] as he is pivotal to the ostomy care. He is to be contacted on his cell: [phone]. Original Note: Addendum entered by Maribel Borjas LPN 04/02/18 13:22: Had good discussion with Cris. He confirms that it is fine to keep [facility] as the referral choice. He also confirms that he is no longer going to [place] and will be home to help his with the ostomy management and feels quite comfortable with same. Need: HH RN orders at d/c and it will be helpful to know what day d/c is being planned. Cris is trying to set his schedule so that he will be here to go over the d/c instructions with the nurse. ROSE MARY Pineda is updated and referral cancelled. [facility] is updated. Confirms they have the referral and will await the d/c order. Original Note: DCP: continued: case again received and EMR reviewed. See now that the d/c dispo has been confirmed as home with RODRÍGUEZ RN to follow. Note that choice : [facility] is first but referral was given to [facility] after DCP MATTHEW ACHARYA and Alanna Pineda both discussed the insurance. Decision: Medicare with AARP supplement is not covered by [facility]. As this appears to perhaps be a misunderstanding of the insurance have spoken now with Miriam. She agrees to check this out with Gloria/training Miriam to the position. Also left a message with Cris: cell: [phone] to discuss. [facility] at this point has the referral but since Cris did the research on the agency choice list felt needed to discuss this with him. Will be following. Will also check in again today with pt. P: RODRÍGUEZ RN: agency/to be determined.
--- NOTE | 2018-04-02 14:16 | P.PN_ITS ---
Subjective Date Patient Seen: 04/01/18 Time Patient Seen: 20:00 Interval history: Late entry. Patient feels pretty well. Think she is probably able to go home. She says she would be a lot more comfortable there. Has minimal abdominal complaints. has been learning how to deal with the ostomy. Exam Vital Signs (past 8 hours): - 04/02/18 08:10 04/02/18 09:11 Temperature 98.2 F Pulse Rate 94 H Respiratory Rate 18 Blood Pressure 133/75 133/75 Pulse Oximetry 98 Fraction of Inspired Oxygen 21 Oxygen Delivery Method Room Air Oxygen Flow Rate 0 Narrative Exam Narrative: Little bit flat today. Soft abdomen. Lungs clear heart regular rate and rhythm. Soft murmur at the base. Objective Labs Result Diagrams: 04/02/18 06:00 04/02/18 06:00 Labs: Laboratory Results - last 24 hr 04/02/18 04/02/18 04/02/18 06:00 06:00 06:00 WBC 17.3 H RBC 3.65 L Hgb 10.7 L Hct 31.9 L MCV 87.5 MCH 29.2 MCHC 33.4 RDW 17.6 H Plt Count 518 H Neut % (Auto) Not Reportable Lymph % (Auto) Not Reportable Garden % (Auto) Not Reportable Eos % (Auto) Not Reportable Baso % (Auto) Not Reportable Total Counted 100 Seg Neutrophils % 39.0 Lymphocytes % (Manual) 47.0 H Atypical Lymphs % 11.0 H Monocytes % (Manual) 2.0 Eosinophils % (Manual) 1.0 L Neutrophils # (Manual) 6747 H Smudge Cells 2+ H RBC Morphology See below Sodium 138 Potassium 3.6 Chloride 104 Carbon Dioxide 28 BUN 8 Creatinine 0.50 L Estimated GFR > 60.0 BUN/Creatinine Ratio 16.0 Glucose 76 L Calcium 8.7 Procalcitonin 0.08 Assessment & Plan Post-op Postoperative Procedures Operation Date: 03/22/18 16:15 Actual Procedures Side Surgeon p Exploratory Laparotomy, small bowel resection with ileocolic anastomosis Senthil Bright MD Postoperative status narrative: Doing well. Continue present care. Postoperative plan narrative: Possible discharge tomorrow if everything can be arranged and is on board.
--- NOTE | 2018-04-02 14:18 | PM.DS.1 ---
History of Present Illness Chief complaint: abd pain Narrative: The patient is a woman who is confused and not really able to give me an adequate history. She recognizes that she is confused and rambling when I ask her questions. According to her she developed acute abdominal pain this morning. She then began vomiting. He brought her to the emergency room and she was found to have a diffusely tender abdomen and free air on x-ray. Her past history is significant for CLL. She is not under treatment at this time as she has been asymptomatic. She has been in and out of the hospital since December. In December she had a colonoscopy and underwent a right hemicolectomy for what turned out to be a large unresectable but benign polyp in her cecum. Since then she has been in the hospital twice with symptoms suggesting a bowel obstruction. According to her yesterday she was doing fine. They 8 together and she was in no pain at all. She had a normal bowel movement according to him. This morning she developed sudden onset of abdominal pain. She has become confused during the day. She did take some Gas-X. Discharge Providers Date of admission: 03/22/18 16:20 Primary care physician: Sayra Russo MD Consults: 03/22/18 21:49 Consult to Ostomy Specialist Routine Comment: Call tomorrow Consulting Provider: 03/22/18 21:51 Consult to Physical Therapy Evaluate & Treat Comment: Can ambulate WITH assistance Physician Instructions: Evaluate and Treat 03/22/18 22:26 Consult to Dietitian, Adult Routine Comment: may need TPN Reason For Exam: S/p perforated bowel Consult to Respiratory Therapy Evaluate & Treat Comment: Physician Instructions: Evaluate and treat 03/24/18 08:00 Consult to PICC Line RN Routine Comment: Placed dual lumen on Saturday for TPN 03/29/18 10:01 Consult to Dietitian, Adult Routine Comment: Reason For Exam: add protein supplements 03/29/18 12:48 Consult to Occupational Therapy Evaluate & Treat Comment: Physician Instructions: Evaluate and treat 04/02/18 14:13 Consult to Home Health Routine Comment: spouse Cris is primary contact: [phone] Reason For Exam: home health RN/new ileostomy Discharge provider: Senthil Bright MD Discharge Date: 04/02/18 Summary Status at Discharge Cognitive/behavioral status at discharge: Alert pleasant Functional status at discharge: uses cane/walker (Walking limited by strength) Overall status at discharge: patient is progressing back to baseline Time Spent with Patient Less than 30 minutes Exam Vital Signs (past 8 hours): - 04/02/18 08:10 04/02/18 09:11 Temperature 98.2 F Pulse Rate 94 H Respiratory Rate 18 Blood Pressure 133/75 133/75 Pulse Oximetry 98 Fraction of Inspired Oxygen 21 Oxygen Delivery Method Room Air Oxygen Flow Rate 0 Narrative Exam Narrative: Operative no apparent distress. Lungs are clear to auscultation. Heart regular rate and rhythm. 2/6 systolic murmur heard the base. Abdomen is scaphoid soft non tender. Ostomy is viable and producing normal succus. Objective Labs Result Diagrams: 04/02/18 06:00 04/02/18 06:00 Labs: Laboratory Results - last 24 hr 04/02/18 04/02/18 04/02/18 06:00 06:00 06:00 WBC 17.3 H RBC 3.65 L Hgb 10.7 L Hct 31.9 L MCV 87.5 MCH 29.2 MCHC 33.4 RDW 17.6 H Plt Count 518 H Neut % (Auto) Not Reportable Lymph % (Auto) Not Reportable [place] % (Auto) Not Reportable Eos % (Auto) Not Reportable Baso % (Auto) Not Reportable Total Counted 100 Seg Neutrophils % 39.0 Lymphocytes % (Manual) 47.0 H Atypical Lymphs % 11.0 H Monocytes % (Manual) 2.0 Eosinophils % (Manual) 1.0 L Neutrophils # (Manual) 6747 H Smudge Cells 2+ H RBC Morphology See below Sodium 138 Potassium 3.6 Chloride 104 Carbon Dioxide 28 BUN 8 Creatinine 0.50 L Estimated GFR > 60.0 BUN/Creatinine Ratio 16.0 Glucose 76 L Calcium 8.7 Procalcitonin 0.08 Discharge Plan Discharge Plan Patient Disposition: Home Discharge comment: You had a small bowel perforation(hole) due to scarring and narrowing at her prior operation. We remove that area of narrowing. You have an ostomy that we will close in 3 or 4 months. It should not require a major operation like this one. If you have any problems do not hesitate to call [facility] [phone]. If you call after hours hold and listen to the entire message. you will then be connected with the page crematorium operator. Discharge Med Rec/Prescriptions Prescriptions: New hydrocodone-acetaminophen [[place]] 5-325 mg tablet 1 tab PO Q4-6H PRN (Reason: painful procedure) Qty: 10 RF: 0 Continue latanoprost 0.005 % drops 1 drp ophthalmic (eye) DIRECTED RF: 0 losartan-hydrochlorothiazide 50-12.5 mg tablet 1 tab PO DAILY RF: 0 calcium carbonate [Calcium 500] 500 mg calcium (1,250 mg) Tablet 500 mg PO DAILY Qty: 0 RF: 0 omega 1-dpm-eco-fish oil [[place]-3] 350 mg-235 mg- 90 mg-597 mg Capsule,Delayed Release(Dr/Ec) 1 cap PO DAILY RF: 0 aspirin [Aspir-81] 81 mg Tablet,Delayed Release (Dr/Ec) 1 tab PO DAILY RF: 0 multivitamin Tablet 1 tab PO DAILY RF: 0 Follow up/Referrals: Senthil Bright MD [Physician] - 04/08/18 3:45 pm Provider Discharge Instructions Diet: Diet as Tolerated Diet comment: May supplement diet with Ensure or similar products Activity: Do not drive. Do not lift or strain. You may walk. Skin/Wound/Dressing Care Report to your healthcare provider any signs of infection, such as:: chills, fever, night sweats, increased pain and unusual drainage Dressing: Change dressing to the midline wound once daily. Saline wet to dry dressing. Other wound treatment: Ostomy care as necessary. Visit Report/Discharge Packet Instructions: How to Care for Your Colostomy or Ileostomy, DI for Small Bowel Resection with Ileostomy, Colostomy / Ileostomy Visit Report Forms: Stroke Signs & Symptoms Discharge Data Primary Care Provider: Sayra Russo Attending Provider: Senthil Bright Admit Date/Time: 03/22/18 16:20
--- NOTE | 2018-04-02 14:23 | P.DS_ITS ---
History of Present Illness Chief complaint: abd pain Narrative: The patient is a woman who is confused and not really able to give me an adequate history. She recognizes that she is confused and rambling when I ask her questions. According to her she developed acute abdominal pain this morning. She then began vomiting. He brought her to the emergency room and she was found to have a diffusely tender abdomen and free air on x- ray. Her past history is significant for CLL. She is not under treatment at this time as she has been asymptomatic. She has been in and out of the hospital since December. In December she had a colonoscopy and underwent a right hemicolectomy for what turned out to be a large unresectable but benign polyp in her cecum. Since then she has been in the hospital twice with symptoms suggesting a bowel obstruction. According to her yesterday she was doing fine. They 8 together and she was in no pain at all. She had a normal bowel movement according to him. This morning she developed sudden onset of abdominal pain. She has become confused during the day. She did take some Gas- X. Discharge Providers Date of admission: 03/22/18 16:20 Primary care physician: Sayra Russo MD Consults: 03/22/18 21:49 Consult to Ostomy Specialist Routine Comment: Call tomorrow Consulting Provider: 03/22/18 21:51 Consult to Physical Therapy Evaluate & Treat Comment: Can ambulate WITH assistance Physician Instructions: Evaluate and Treat 03/22/18 22:26 Consult to Dietitian, Adult Routine Comment: may need TPN Reason For Exam: S/p perforated bowel Consult to Respiratory Therapy Evaluate & Treat Comment: Physician Instructions: Evaluate and treat 03/24/18 08:00 Consult to PICC Line RN Routine Comment: Placed dual lumen on Saturday for TPN 03/29/18 10:01 Consult to Dietitian, Adult Routine Comment: Reason For Exam: add protein supplements 03/29/18 12:48 Consult to Occupational Therapy Evaluate & Treat Comment: Physician Instructions: Evaluate and treat 04/02/18 14:13 Consult to Home Health Routine Comment: spouse Cris is primary contact: [phone] Reason For Exam: home health RN/new ileostomy Discharge provider: Senthil Bright MD Discharge Date: 04/02/18 Summary Status at Discharge Cognitive/behavioral status at discharge: Alert pleasant Functional status at discharge: uses cane/walker (Walking limited by strength) Overall status at discharge: patient is progressing back to baseline Time Spent with Patient Less than 30 minutes Exam Vital Signs (past 8 hours): - 04/02/18 08:10 04/02/18 09:11 Temperature 98.2 F Pulse Rate 94 H Respiratory Rate 18 Blood Pressure 133/75 133/75 Pulse Oximetry 98 Fraction of Inspired Oxygen 21 Oxygen Delivery Method Room Air Oxygen Flow Rate 0 Narrative Exam Narrative: Operative no apparent distress. Lungs are clear to auscultation. Heart regular rate and rhythm. 2/6 systolic murmur heard the base. Abdomen is scaphoid soft non tender. Ostomy is viable and producing normal succus. Objective Labs Result Diagrams: 04/02/18 06:00 04/02/18 06:00 Labs: Laboratory Results - last 24 hr 04/02/18 04/02/18 04/02/18 06:00 06:00 06:00 WBC 17.3 H RBC 3.65 L Hgb 10.7 L Hct 31.9 L MCV 87.5 MCH 29.2 MCHC 33.4 RDW 17.6 H Plt Count 518 H Neut % (Auto) Not Reportable Lymph % (Auto) Not Reportable [place] % (Auto) Not Reportable Eos % (Auto) Not Reportable Baso % (Auto) Not Reportable Total Counted 100 Seg Neutrophils % 39.0 Lymphocytes % (Manual) 47.0 H Atypical Lymphs % 11.0 H Monocytes % (Manual) 2.0 Eosinophils % (Manual) 1.0 L Neutrophils # (Manual) 6747 H Smudge Cells 2+ H RBC Morphology See below Sodium 138 Potassium 3.6 Chloride 104 Carbon Dioxide 28 BUN 8 Creatinine 0.50 L Estimated GFR > 60.0 BUN/Creatinine Ratio 16.0 Glucose 76 L Calcium 8.7 Procalcitonin 0.08 Discharge Plan Discharge Plan Patient Disposition: Home Discharge comment: You had a small bowel perforation(hole) due to scarring and narrowing at her prior operation. We remove that area of narrowing. You have an ostomy that we will close in 3 or 4 months. It should not require a major operation like this one. If you have any problems do not hesitate to call [facility] [phone]. If you call after hours hold and listen to the entire message. you will then be connected with the page distributor operator. Discharge Med Rec/Prescriptions Prescriptions: New hydrocodone-acetaminophen [[place]] 5-325 mg tablet 1 tab PO Q4-6H PRN (Reason: painful procedure) Qty: 10 RF: 0 Continue latanoprost 0.005 % drops 1 drp ophthalmic (eye) DIRECTED RF: 0 losartan-hydrochlorothiazide 50-12.5 mg tablet 1 tab PO DAILY RF: 0 calcium carbonate [Calcium 500] 500 mg calcium (1,250 mg) Tablet 500 mg PO DAILY Qty: 0 RF: 0 omega 7-rdf-ukd-fish oil [[place]-3] 350 mg-235 mg- 90 mg-597 mg Capsule, Delayed Release(Dr/Ec) 1 cap PO DAILY RF: 0 aspirin [Aspir-81] 81 mg Tablet,Delayed Release (Dr/Ec) 1 tab PO DAILY RF: 0 multivitamin Tablet 1 tab PO DAILY RF: 0 Follow up/Referrals: Senthil Bright MD [Physician] - 04/08/18 3:45 pm Provider Discharge Instructions Diet: Diet as Tolerated Diet comment: May supplement diet with Ensure or similar products Activity: Do not drive. Do not lift or strain. You may walk. Skin/Wound/Dressing Care Report to your healthcare provider any signs of infection, such as:: chills, fever, night sweats, increased pain and unusual drainage Dressing: Change dressing to the midline wound once daily. Saline wet to dry dressing. Other wound treatment: Ostomy care as necessary. Visit Report/Discharge Packet Instructions: How to Care for Your Colostomy or Ileostomy, DI for Small Bowel Resection with Ileostomy, Colostomy / Ileostomy Visit Report Forms: Stroke Signs & Symptoms Discharge Data Primary Care Provider: Sayra Russo Attending Provider: Senthil Bright Admit Date/Time: 03/22/18 16:20
--- NOTE | 2018-04-02 15:56 | PC.NURSE ---
MATTHEW Renteria assisted to dc picc line prior to discharge per protocol, patient tolerated well, and occlusive dressing with gauze placed (patient instructed to remove in 24 hours). Dressing to abdominal incision changed with patient and her to complete teaching (wet to dry) with initial supplies provided. Patient's states visiting nurse is coming on Saturday. Patient and her report no questions or concerns regaurding ostomy care at this time. Discharge instructions and home care handout reviewed with patient and her , they state understanding and are ready for dicharge to home. Follow up appointment scheduled.
== END 2018-04-02 16:03 | disposition home health service (06) | DRG 329 ==
LOC: ED 15:38 → AC 16:21 → ICU 03-23 10:47 → AC 03-29 12:22 → ICU 01-26 15:53
PROVIDERS: Surgery; Admitting Provider Specialist; Emergency Provider Nurse Practitioner Family; PCP Internal Medicine; Visit Provider Specialist
PROC: 0DB80ZZ Excision of Small Intestine, Open Approach (ICD-10-PCS; CPT 49000; principal; 2018-03-22 16:15)
DX: K91.31 Postprocedural partial intestinal obstruction (principal); A41.9 Sepsis, unspecified organism; K63.1 Perforation of intestine (nontraumatic); C91.11 Chronic lymphocytic leukemia of B-cell type in remission; E44.0 Moderate protein-calorie malnutrition; D62 Acute posthemorrhagic anemia; E88.09 Other disorders of plasma-protein metabolism, not elsewhere classified; I10 Essential (primary) hypertension; F17.210 Nicotine dependence, cigarettes, uncomplicated; E87.6 Hypokalemia; D53.8 Other specified nutritional anemias; R41.0 Disorientation, unspecified
CPT/HCPCS: 36415; 36569; 36591; 36592; 44140; 51701; 74019; 74177; 80048; 80053; 81001; 82962; 83605; 83690; 83735; 84145; 85025; 87040; 87070; 87075; 87077; 87186; 87205; 87797; 88307; 94760; 96361; 96365; 96375; 96376; 97110; 97116; 97162; 97165; 97530; 97535; 99223; 99285; 99406; B4189; C9113; J0131; J0330; J0360; J1170; J1450; J1650; J1885; J1940; J2060; J2250; J2270; J2405; J2543; J2704; J3010; J3475; J3480; Q9967

== ENCOUNTER → 2018-05-13 14:18 | Outpatient (CLI) | payer MEDICARE, SELFPAY ==
[2018-05-13 14:16] VITALS: BMI 20.7
[2018-05-13 14:47] LABS: Hematocrit 48.2 % (36-46); Hemoglobin 15.8 g/dL (12.0-16.0); Mean Corpuscular HGB Conc 32.7 % (30-36); Mean Corpuscular Hemoglobin 29.7 PG (26-34); Mean Corpuscular Volume 90.9 fL (80-100); Platelet Count 274 X10^3/uL (150-400); Red Blood Cell Count 5.31 X10^6/uL (4.0-5.2); Red Cell Distribution Width 14.5 % (11.6-14.8); White Blood Cell Count 17.3 X10^3/uL (4.5-11.0)
[2018-05-13 15:01] LABS: Alanine Aminotransferase 45 IU/L (9-52); Albumin 4.7 g/dL (3.5-5.0); Albumin Globulin Ratio 1.2 (1.0-2.8); Alkaline Phosphatase 137 U/L (38-126); Aspartate Aminotransferase 37 IU/L (14-36); BUN Creatinine Ratio 27.1 (6-22); Bilirubin Total 0.5 mg/dL (0.2-1.3); Blood Urea Nitrogen 38 mg/dL (7-17); Calcium 11.2 mg/dL (8.4-10.2); Carbon Dioxide 21 mmol/L (22-32); Chloride 100 mmol/L (98-107); Estimated Glomerular Filt Rate 36.9 mL/min (>60); Globulin 3.9 g/dL (1.7-4.1); Glucose 105 mg/dL (80-110); HEMOLYSIS < 15 (0-50); Sodium 136 mmol/L (137-145); Total Protein 8.6 g/dL (6.3-8.2)
[2018-05-13 15:02] LABS: Potassium 5.4 mmol/L (3.4-5.1)
[2018-05-13 16:06] LABS: Neutrophils Absolute Manual 4671 /uL (3000-5900); Total Cells Counted 100
== END ==
PROVIDERS: PCP Internal Medicine; Visit Provider Specialist
DX: D64.9 Anemia, unspecified (principal); K91.2 Postsurgical malabsorption, not elsewhere classified; R19.8 Other specified symptoms and signs involving the digestive system and abdomen; Z93.2 Ileostomy status
CPT/HCPCS: 36415; 80053; 84134; 85025

== ENCOUNTER 2018-06-02 14:24 | Inpatient (IN) | payer MEDICARE, SELFPAY ==
[2018-05-13 14:16] VITALS: BMI 20.7
--- NOTE | 2018-06-02 | DI.RAD.S_ITS ---
PROCEDURE: XR KUB INDICATIONS: acute kidney injury, obstruction TECHNIQUE: One view of the abdomen acquired. COMPARISON: [facility], CR, XR ACUTE ABDOMEN SERIES, 06/02/2018, 14:56. FINDINGS: Surgical changes and devices: Multiple overlying wires and leads are noted limiting evaluation. Bowel: There is a paucity of intraluminal bowel gas throughout the abdomen. Soft tissues: No suspicious abdominal calcifications. Bones: No suspicious bony lesions. IMPRESSION: 1. Paucity of intraluminal bowel gas throughout the abdomen. The finding is nonspecific and if clinical concern persists for obstruction, further evaluation may be obtained with CT. Dictated by: Russ Givens M.D. on 06/03/2018 at 9:30 Approved by: Russ Givens M.D. on 06/03/2018 at 9:34
--- NOTE | 2018-06-02 14:28 | ED.WEAKNESS ---
HPI - Weakness General Chief complaint: Weakness Stated complaint: weak no appetite Time Seen by Provider: 06/02/18 14:25 Source: patient and family Mode of arrival: ambulatory Limitations: no limitations History of Present Illness HPI Narrative: 73-year-old female, former smoker presents with her and a chief complaint of gradually worsening generalized weakness and poor appetite for the past 7-10 days. She states by large she has felt unwell since old large bowel surgery she had due to perforation back in the end of February. She had perforated small bowel and required diversion with ostomy, there is talk of reanastomosed sing at some point. She denies any measured fever but has felt chills. She has had no runny nose or sore throat. She denies any chest pain or shortness of breath. She denies any abdominal pain or change in the caliber of stool in her ostomy. She has no dysuria, frequency or urgency. She states she has lost about 15 lb since prior to the surgery and her caloric intake is about 700 calories daily. She reports that she drinks plenty of water and is able to keep it down MD Complaint: generalized weakness Onset (ago): day(s) Duration: constant Location: generalized Exacerbating factors: exertion Associated symptoms: denies other symptoms Related Data Home Medications Medication Instructions Recorded Confirmed aspirin [Aspir-81] 1 tab PO DAILY 11/15/17 06/02/18 multivitamin 1 tab PO DAILY 11/15/17 06/02/18 calcium carbonate [Calcium 500] 500 mg PO DAILY #0 12/24/17 06/02/18 latanoprost 1 drp OPHTHALMIC (EYE) BEDTIME 12/24/17 06/02/18 mirtazapine 15 mg PO BEDTIME 06/02/18 06/02/18 nicotine 1 patch TRANSDERMAL DAILY 06/02/18 06/02/18 viayz-[id number]-svf-epa-fish oil [[place]-3 1,000 mg PO DAILY 06/02/18 06/02/18 Fish Oil] Allergies Allergy/AdvReac Type Severity Reaction Status Date / Time lisinopril Allergy Severe SWELLING Verified 01/24/18 11:13 LIPS, TONGUE Review of Systems Review of Systems All systems reviewed & are unremarkable except as noted in HPI and below Constitutional Reports chills, Denies fever(s), Denies lethargy and Reports weakness Eyes Denies change in vision, Denies eye discharge, Denies irritation and Denies loss of vision ENT Ears, Nose, Mouth, and Throat: Denies change in voice, Denies neck pain and Denies sore throat Cardiovascular Denies chest pain, Denies irregular heart rhythm, Denies lightheadedness, Denies palpitations, Denies dyspnea, Denies dyspnea on exertion and Denies orthopnea Respiratory Denies cough, Denies dyspnea, Denies dyspnea on exertion and Denies wheezing Gastrointestinal Gastrointestinal: Denies abdominal pain, Denies change in bowel habits, Denies diarrhea, Denies nausea and Denies vomiting Genitourinary Denies hematuria, Denies flank pain, Denies urinary incontinence and Denies urinary urgency Musculoskeletal Denies neck pain Integumentary/Breasts Denies pruritus, Denies erythema, Denies rash and Denies wounds Neurologic Denies confusion, Denies loss of vision and Reports weakness Psychiatric Denies anxiety, Denies confusion, Denies depression, Denies homicidal ideation and Denies suicidal ideation Endocrine Denies palpitations Hematologic/Lymphatic Denies easy bruising Allergic/Immunologic Denies wheezing [facility] Medical History Hypertension (Acute) Mild protein-calorie malnutrition (Acute) CLL (chronic lymphocytic leukemia) (Chronic) Erythrocytosis (Chronic) Glaucoma (Chronic) H/O: hysterectomy (Resolved) Mass of appendix (Resolved) Other bursal cyst, unspecified wrist (Resolved) Tubal ligation status (Resolved) Surgical History History of colonoscopy (Acute) Status post laparoscopic colectomy (Acute) Social History household members: spouse Smoking Status: Former smoker alcohol intake: current substance use type: does not use Exam Narrative Exam Narrative: 73-year-old female, chronically ill appearing appears to be in mild distress Initial Vital Signs Initial Vital Signs: Vital Signs Temperature 96.2 F L 06/02/18 14:34 Pulse Rate 110 H 06/02/18 14:34 Respiratory Rate 21 06/02/18 14:34 Blood Pressure 109/91 H 06/02/18 14:34 Pulse Oximetry 100 06/02/18 14:34 Course Orders Ordered: ED Orders 06/02/18 14:37 XR acute abdomen series Stat EKG-12 Lead Stat 06/02/18 14:40 Basic Metabolic Panel Stat Blood Culture Stat Complete Blood Count AUTO DIFF Stat Lactate (Lactic Acid) Stat Procalcitonin Stat Troponin I Stat Sodium Chloride (Normal Saline 0.9%) 1,000 mls @ 1,000 mls/hr IV BOLUS ONE Stop: 06/02/18 16:23 Discontinued Medications Sodium Chloride (Normal Saline 0.9%) 1,000 mls @ 1,000 mls/hr IV BOLUS ONE Stop: 06/02/18 15:32 Last Admin: 06/02/18 15:03 Dose: 1,000 mls/hr Consultations Consultation #1: Hospitalist happy to accept this patient. Quick courtesy consult to General surgery service regarding the fact that she was sent by their office. Also, attempt to contact Dr. Sayra Russo, but she is out of the office Vital Signs - 8 hr 06/02/18 14:34 06/02/18 15:33 Temperature 96.2 F L Pulse Rate 110 H 98 H Respiratory Rate 21 20 Blood Pressure 109/91 H Blood Pressure [Left Arm] 113/78 Pulse Oximetry 100 100 MDM - Weakness Differential Diagnosis Differential diagnosis: Likely acute myocardial infarction Medical Records Attestation: I reviewed the patient's medical records. Lab Data Attestation: I reviewed the patient's lab results. Result diagrams: 06/02/18 14:40 06/02/18 14:40 Lab Results 06/02/18 06/02/18 06/02/18 Range/Units 14:40 14:40 14:40 WBC 17.6 H (4.5-11.0) X10^3/uL RBC 5.50 H (4.0-5.2) X10^6/uL Hgb 16.4 H (12.0-16.0) g/dL Hct 49.0 H (36-46) % MCV 89.0 (80-100) fL MCH 29.8 (26-34) PG MCHC 33.5 (30-36) % RDW 13.9 (11.6-14.8) % Plt Count 285 (150-400) X10^3/uL Neut % (Auto) Not Reportable Lymph % (Auto) Not Reportable [place] % (Auto) Not Reportable Eos % (Auto) Not Reportable Baso % (Auto) Not Reportable Total Counted 100 Seg Neutrophils % 34.0 L (38-70) % Band Neutrophils % 1.0 L (3-7) % Lymphocytes % (Manual) 58.0 H (25-45) % Atypical Lymphs % 5.0 H ( - 0) % Monocytes % (Manual) 1.0 L (2-11) % Eosinophils % (Manual) 1.0 L (2-4) % Neutrophils # (Manual) 6160 H (8686-6206) /uL RBC Morphology Normal morphology Sodium 135 L (137-145) mmol/L Potassium 4.7 (3.4-5.1) mmol/L Chloride 98 (98-107) mmol/L Carbon Dioxide 20 L (22-32) mmol/L BUN 72 H (7-17) mg/dL Creatinine 1.90 H (0.52-1.04) mg/dL Estimated GFR 25.8 L (>60) mL/min BUN/Creatinine Ratio 37.9 H (6-22) Glucose 179 H (80-110) mg/dL Lactate 1.7 (0.7-2.1) mmol/L Calcium 11.1 H (8.4-10.2) mg/dL Troponin I 0.030 (0.01-0.034) ng/mL MDM Narrative Medical decision making narrative: 73-year-old chronically ill female presents with 7 days of progressive weakness, poor appetite and weight loss. She has become so fatigued that she requires significant help getting in and out of chairs, which is not her baseline. She has had a slow decline since an admission in the end of February for small bowel perf. She has very small appetitie and is quite weak. She has dry mucous membranes and poor skin turgor. Creatinine bumped from baseline 0.5 to 1.9. WBC is chronically elevated Discharge Plan Departure Patient Disposition: Admitted As Inpatient Clinical Impression: Dehydration, Acute renal failure
[2018-06-02 14:34] VITALS: BP 109/91; PULSE 110; RESP 21; TEMP 35.7; O2SAT 100; BMI 16.9
--- NOTE | 2018-06-02 14:37 | DI.RAD.S_ITS ---
PROCEDURE: XR ACUTE ABDOMEN SERIES INDICATIONS: Abdominal pain TECHNIQUE: One view chest and two views of the abdomen were acquired. COMPARISON: [facility], CT, CT ABDOMEN PELVIS W CON, 03/22/2018, 13:18. [facility], CR, XR ACUTE ABDOMEN SERIES, 02/16/2018, 2:50. FINDINGS: Surgical changes and devices: None. Chest: Lungs are hyperexpanded consistent with COPD. Heart size is normal. No pleural effusions. No pneumoperitoneum. Abdomen: Bowel gas pattern is normal. No suspicious calcifications. Visualized solid organ contours appear normal. Bones: No suspicious bony lesions. IMPRESSION: Unremarkable exam. Dictated by: Rea Godinez M.D. on 06/02/2018 at 15:13 Approved by: Rea Godinez M.D. on 06/02/2018 at 15:15
[2018-06-02] MEDS: SODIUM CHLORIDE 0.9% 1,000 ML 1000 ML IV ×2 (15:03→16:20)
[2018-06-02 15:08] LABS: Hemoglobin 16.4 g/dL (12.0-16.0); Mean Corpuscular HGB Conc 33.5 % (30-36); Mean Corpuscular Hemoglobin 29.8 PG (26-34); Platelet Count 285 X10^3/uL (150-400); Red Cell Distribution Width 13.9 % (11.6-14.8); White Blood Cell Count 17.6 X10^3/uL (4.5-11.0)
[2018-06-02 15:09] LABS: Add Manual Diff / Slide Review YES
[2018-06-02 15:22] LABS: BUN Creatinine Ratio 37.9 (6-22); Blood Urea Nitrogen 72 mg/dL (7-17); Calcium 11.1 mg/dL (8.4-10.2); Carbon Dioxide 20 mmol/L (22-32); Chloride 98 mmol/L (98-107); Estimated Glomerular Filt Rate 25.8 mL/min (>60); Glucose 179 mg/dL (80-110); HEMOLYSIS 15 (0-50); Lactate (Lactic Acid) 1.7 mmol/L (0.7-2.1); Potassium 4.7 mmol/L (3.4-5.1); Sodium 135 mmol/L (137-145)
[2018-06-02 15:24] LABS: Neutrophils Absolute Manual 6160 /uL (3000-5900); RBC Morphology Normal Morphology; Total Cells Counted 100
[2018-06-02 15:33] VITALS: BP 113/78; PULSE 98; RESP 20; O2SAT 100
[2018-06-02 15:56] LABS: Procalcitonin 0.13 ng/mL (<0.5)
[2018-06-02 17:00] VITALS: PULSE 100; RESP 18; O2SAT 98
--- NOTE | 2018-06-02 17:22 | PC.NURSE ---
Assisted patient and spouse to change ostomy bag out with supplies they brought from home. The stoma is beefy red, There is a considerable amount of leakage of stool coming from the edges of the old ostomy bag. Spouse states this has been happening a lot recently. Peristoma skin is slightly reddened below the stoma. Informed oncoming floor nurse of the leakage.
[2018-06-02 18:35] LABS: Magnesium 2.2 mg/dL (1.6-2.3); Phosphorous 4.5 mg/dL (2.8-4.1)
[2018-06-02] MEDS: SODIUM CHLORIDE 0.9% 1,000 ML 100 ML IV (19:00)
[2018-06-02 19:08] VITALS: BMI 16.9
[2018-06-02 19:21] VITALS: BP 118/77; PULSE 101; RESP 18; TEMP 36.2; O2SAT 98
--- NOTE | 2018-06-02 20:40 | P.HP_ITS ---
History of Present Illness Date Patient Seen: 06/02/18 Chief complaint: weak no appetite Narrative: The patient is a 73-year-old AA female with PMH significant for HTN, COPD, PRIOR tobacco dependence (20 pack yrs, quit Apr 2018), erythrocytosis, polycythemia, and a myeloproliferative disorder / CLL. Patient presented to the ED on 06/02/2018 at 2:30 p.m., respectively, out of concern for progressive generalized weakness. Patient has been experiencing overall debility and deconditioning since acute illness and surgical procedure. In the past 7-10 days, the degree of weakness has become more profound. Associated symptoms include diminished energy, diminished mobility, poor appetite, weight loss, and intermittent confusion. Denies fever or hills. Denies chest pain, palpitations, dyspnea, orthopnea, peripheral edema, PND or claudication. Denies headache, dizziness, lightheadedness, or syncopal events. Patient notes presence of baseline tremor, which has not been worse. Denies muscle cramps / myopathy, paresthesia, or fasciculations. No recent falls or trauma to abdomen or torso. Denies abdominal, back, and flank pain. No new rashes. Reports no change in pattern of micturition; no dysuria, frequency or hematuria. Denies melena and hematochezia. Notes some bloody discharge, which she believes is from her wound. Patient does have an ostomy. reports having trouble with the ostomy. Drains 1-2 bags daily. Reports Sensation of thirst most of the time; however, denies polyuria. Drinks 3-4 glasses of fluid daily, which consist of a combination of Pepsi, water, apple or orange juice. Pertinent home medications include daily low-dose aspirin. Reports using 200- 400 mg of ibuprofen , on occasion, 2-3 times altogether in the past month. Initial presentation VS: T 96.2*F, BP 109/91, HR 110, RR 21, SpO2 100% on RA WBC 17.6, RBC 5.5, HGB 16.4, HCT 49, PLT 285 NA 135, K 4.7, MG 2.2, CO 98, CO2 20, CA 11.1, PO4 4.5, GLU 179, BUN 72, sCR 1.9, BUN:CR 37.9, GFR 25.8, T. BILI 0.5, AST 37, ALT 45, ALK PHOS 137, T.PROT 8.6, ALB 4.7 Lactate 1.7, Trop 0.03, PCT 0.13 Blood CX - pending XR Chest / Abdomen unremarkable for acute findings ED received a total of 2 L NS bolus. Patient History Medical History Colostomy in place (Acute) Hypertension (Acute) Mild protein-calorie malnutrition (Acute) CLL (chronic lymphocytic leukemia) (Chronic) Erythrocytosis (Chronic) Glaucoma (Chronic) H/O: hysterectomy (Resolved) Mass of appendix (Resolved) Other bursal cyst, unspecified wrist (Resolved) Tubal ligation status (Resolved) Surgical History History of colonoscopy (Acute) Status post laparoscopic colectomy (Acute) Family & Social History Social History: Patient is . Lives with spouse in her own home. Spouse is the primary caregiver. Patient has limited mobility. Typically uses a walker or wheelchair. Since recent surgical procedure has been predominantly wheelchair dependent. Safety & Behavioral: Feels Safe in Current Yes Environment Been Physically Hurt or No Threatened By a Person Suicidal Ideation Description None Suicide Plan Description No Plan Tobacco & Substance use: Patient reports 20 pack year history of tobacco dependence. Reports quitting smoking 1 week ago. Tobacco type Cigarettes Smoking Status Former smoker alcohol intake Current, on occasion / rare alcohol intake frequency 0-2 drinks per day Substance Use Type Does not use Meds Home Medications Medication Instructions Recorded Confirmed Type aspirin [Aspir-81] 1 tab PO DAILY 11/15/17 06/02/18 History multivitamin 1 tab PO DAILY 11/15/17 06/02/18 History calcium carbonate [Calcium 500] 500 mg PO DAILY #0 12/24/17 06/02/18 History latanoprost 1 drp OPHTHALMIC (EYE) BEDTIME 12/24/17 06/02/18 History mirtazapine 15 mg PO BEDTIME 06/02/18 06/02/18 History nicotine 1 patch TRANSDERMAL DAILY 06/02/18 06/02/18 History [id number]-fish oil [[place]-3 1,000 mg PO DAILY 06/02/18 06/02/18 History Fish Oil] Allergies Allergy/AdvReac Type Severity Reaction Status Date / Time lisinopril Allergy Severe SWELLING Verified 01/24/18 11:13 LIPS, TONGUE Review of Systems Review of Systems All systems reviewed & are unremarkable except as noted in HPI and below Exam Vital Signs (past 8 hours): - 06/02/18 14:34 06/02/18 15:33 06/02/18 17:00 Temperature 96.2 F L Pulse Rate 110 H 98 H 100 H Respiratory Rate 21 20 18 Blood Pressure 109/91 H Blood Pressure [Left Arm] 113/78 Pulse Oximetry 100 100 98 06/02/18 19:21 Temperature 97.1 F L Pulse Rate 101 H Respiratory Rate 18 Blood Pressure 118/77 Blood Pressure [Left Arm] Pulse Oximetry 98 Oxygen Delivery Method Room Air Narrative Exam Narrative: Constitutional: NAD, frail, cachectic appearing Neurologic: AOx3, no focal neurological deficits, no tremor or asterixis Head: NC, AT Eyes: pupils equal and reactive Ears: external ears normal, no otorrhea Nose: external nose normal, no rhinorrhea or epistaxis Throat: dry MM, oropharynx w/o exudate Neck: no masses, lymphadenopathy, or JVD Chest / Respiratory: equal chest rise, unlabored respiratory effort, diminished breath sounds throughout Heart / CV: S1S2 Abdomen / GI: round, NT, ND, + BS, no hepatosplenomegally, ostomy present : no suprapubic tenderness Peripheral / Vascular: warm to touch, DP and PT pulses palpable, no edema Musc: generalized weakness Skin: no ecchymosis or suspicious lesions / ulcers Objective Labs Result Diagrams: 06/02/18 14:40 06/02/18 14:40 Labs: Laboratory Results - last 24 hr 06/02/18 06/02/18 06/02/18 14:40 14:40 14:40 WBC 17.6 H RBC 5.50 H Hgb 16.4 H Hct 49.0 H MCV 89.0 MCH 29.8 MCHC 33.5 RDW 13.9 Plt Count 285 Neut % (Auto) Not Reportable Lymph % (Auto) Not Reportable [place] % (Auto) Not Reportable Eos % (Auto) Not Reportable Baso % (Auto) Not Reportable Total Counted 100 Seg Neutrophils % 34.0 L Band Neutrophils % 1.0 L Lymphocytes % (Manual) 58.0 H Atypical Lymphs % 5.0 H Monocytes % (Manual) 1.0 L Eosinophils % (Manual) 1.0 L Neutrophils # (Manual) 6160 H RBC Morphology Normal morphology Sodium 135 L Potassium 4.7 Chloride 98 Carbon Dioxide 20 L BUN 72 H Creatinine 1.90 H Estimated GFR 25.8 L BUN/Creatinine Ratio 37.9 H Glucose 179 H Lactate Calcium 11.1 H Phosphorus Magnesium Troponin I 0.030 Procalcitonin 0.13 06/02/18 06/02/18 14:40 17:45 WBC RBC Hgb Hct MCV MCH MCHC RDW Plt Count Neut % (Auto) Lymph % (Auto) [place] % (Auto) Eos % (Auto) Baso % (Auto) Total Counted Seg Neutrophils % Band Neutrophils % Lymphocytes % (Manual) Atypical Lymphs % Monocytes % (Manual) Eosinophils % (Manual) Neutrophils # (Manual) RBC Morphology Sodium Potassium Chloride Carbon Dioxide BUN Creatinine Estimated GFR BUN/Creatinine Ratio Glucose Lactate 1.7 Calcium Phosphorus 4.5 H Magnesium 2.2 Troponin I Procalcitonin Assessment & Plan Plan: Assessment/Plan Narrative: MCKENZIE, baseline sCr 0.5 to 0.7 Presenting sCr 1.9. In MCKENZIE since at least 05/13/2018. Likely pre-renal in the setting of volume depletion (consider high ostomy output as a potential source) vs. ATN - Urinalysis w/ micro and c/s if indicated, urine electrolytes, urine creatinine , urine eosinophils - Renal U/S to r/o obstruction - IVF - Avoid nephrotoxic agents, optimize renal perfusion - Correct and maintain normal electrolyte balance and fluid volume - Strict I/O monitoring Volume depletion Received 2L NS in ED - Correct fluid volume, continue IVF overnight Leukocytosis No overt s/s of sepsis. No fever. Lactate WNL. s/p bowel resection - Hold off on further abx, CBC in am Non-Anion Gap Acidosis, 2/2 renal dysfunction Hyponatremia, Na 135 - mild, 2/2 volume depletion, continue IVF Hypercalcemia, Ca 11.1 - mild, asymptomatic, on Ca supplement at home; this is likely pseudohypercalcemia in the setting of significant volume depletion - IVF - Hold Ca supplements at this time - Check ionized calcium in am h/o SBO 2/2 bowel stricture and obstructed anastamosis, s/p small bowel resection w/ ileocolonic anastomosis and diverting loop ileostomy, 03/23/2018 Having trouble with ostomy. Per general surgery note, patient is due for a colonoscopy and further assessment in regard to ostomy closure. - consult General surgery, re: plan, further recommendations (per ED note, patient was send to the ED per surgery request) Protein calorie malnutrition, moderate, BMI 16.9 However albumin and pre-albumin WNL in Apr 2018. Continues to have poor appetite and progressive weight loss. - consult sales relationship manager, eval and treat COPD w/o acute exacerbation Erythrocytosis, treated with intermittent phlebotomies h/o polycythemia vs. myeloproliferative disorder. Follows with oncology. 06/2016 oncology note notes JAK2 as negative. H/o bone marrow aspiration / biopsy on 07/2017. 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 Patient wishes to be a full code. She notes having formal have directive. Designated DPOA is Mackenzie Jessica (friend). Home medications in chart reviewed and adjusted / continued accordingly Quality VTE Deep Vein Thrombosis/Pulmonary Embolism Present on Admission: No
[2018-06-02] MEDS: HEPARIN 5,000 UNIT/ML VIAL 5000 UNIT SUBCUT (21:07)
--- NOTE | 2018-06-02 23:52 | PC.NURSE ---
evening shift note- patient alert and oriented and able to make needs known to staff. patient arrived to room from ER via wheelchair. patient walked from wheelchair to bed with SBA. admission questions completed. called patients huisband to review home medications, physical assessment completed. patient oriemented to bed and bed control, jeanie, bathroom, menu, lights, and call duke/tv remote. patiet call fro assistance as needed. safety measures in place. call duke and phone within reach. will conintue to [email or web address]
[2018-06-03] VITALS (9 sets, daily range): BP systolic 97–124; BP diastolic 57–78; PULSE 91–105; RESP 14–22; TEMP 37–37.6; O2SAT 98–100; BMI 18.3
[2018-06-03] MEDS: ONDANSETRON 4 MG/2 ML INJ IV ×2 (05:47→15:33)
[2018-06-03] MEDS: PANTOPRAZOLE 20 MG TABLET PO (05:47)
[2018-06-03 06:00] LABS: Alanine Aminotransferase 36 IU/L (9-52); Albumin 3.4 g/dL (3.5-5.0); Albumin Globulin Ratio 1.1 (1.0-2.8); Alkaline Phosphatase 95 U/L (38-126); Aspartate Aminotransferase 32 IU/L (14-36); Bilirubin Total 0.3 mg/dL (0.2-1.3); Blood Urea Nitrogen 46 mg/dL (7-17); Calcium 9.3 mg/dL (8.4-10.2); Carbon Dioxide 17 mmol/L (22-32); Chloride 110 mmol/L (98-107); Estimated Glomerular Filt Rate 54.2 mL/min (>60); Glucose 111 mg/dL (80-110); HEMOLYSIS < 15 (0-50); Phosphorous 3.6 mg/dL (2.8-4.1); Potassium 4.9 mmol/L (3.4-5.1); Sodium 136 mmol/L (137-145); Total Protein 6.4 g/dL (6.3-8.2)
[2018-06-03 06:10] LABS: Add Manual Diff / Slide Review NO; Basophils Percent Auto 0.1 % (0-2); Eosinophils Percent Auto 0.1 % (2-4); Hematocrit 40.4 % (36-46); Hemoglobin 13.1 g/dL (12.0-16.0); Lymphocytes Percent Auto 39.2 % (25-40); Mean Corpuscular HGB Conc 32.4 % (30-36); Mean Corpuscular Volume 89.3 fL (80-100); Monocytes Percent Auto 4.3 % (3-14); Neutrophils Absolute Auto 11000 /uL (3000-5900); Neutrophils Percent Auto 56.3 % (50-75); Platelet Count 202 X10^3/uL (150-400); Red Blood Cell Count 4.53 X10^6/uL (4.0-5.2); Red Cell Distribution Width 13.5 % (11.6-14.8); White Blood Cell Count 19.6 X10^3/uL (4.5-11.0)
[2018-06-03 08:37] LABS: Appearance Urine UA CLEAR; Bilirubin Urine UA NEGATIVE (NEGATIVE); Color Urine UA YELLOW; Glucose Urine UA TRACE g/dL (Normal); Ketones Urine UA NEGATIVE (NEGATIVE); Leukocyte Esterase Urine UA 2+ (NEGATIVE); Nitrite Urine UA NEGATIVE (Negative); Occult Blood Urine UA TRACE-LYSED (Negative); Protein Urine UA NEGATIVE (Negative); Urobilinogen Urine UA 0.2 E.U./dL (0.2)
[2018-06-03 08:51] LABS: RBC Urine 0-1/HPF (0-5/HPF); Renal Epithelial Cells Urine 1-5/HPF; Squamous Epithelial Cell Urine 5-10 /HPF; Transitional Epi Cells Urine 1-5/HPF (0-5/HPF); WBC Urine 30-100/HPF (0-5/HPF)
[2018-06-03 08:52] LABS: Bacteria Urine Moderate (10-30); Granular Casts Urine 1-5/LPF; Hyaline Casts Urine 0-1/LPF
[2018-06-03] MEDS: ASPIRIN EC 81 MG TABLET PO (09:02)
[2018-06-03] MEDS: ACETAMINOPHEN 325 MG TABLET 650 MG PO (09:02)
[2018-06-03] MEDS: MULTIVITAMIN 1 TABLET 1 TAB PO (09:02)
[2018-06-03] MEDS: HEPARIN 5,000 UNIT/ML VIAL 5000 UNIT SUBCUT ×2 (09:02→21:47)
[2018-06-03] MEDS: SODIUM CHLORIDE 0.9% 1,000 ML 100 ML IV ×2 (09:06→21:43)
[2018-06-03 09:57] LABS: Creatinine Urine Random 68.6 mg/dL; Potassium Urine Random 59.4 mmol/L; Sodium Urine Random < 5 mmol/L (30-90)
--- NOTE | 2018-06-03 10:33 | PM.PN.1 ---
Subjective Date Patient Seen: 06/03/18 Time Patient Seen: 10:34 Interval history: FEELING OF GENERALIZED WEAKNESS NO CP/SOB NO FEVER OR CHILLS DENIED ANY KNOWLEDGE OF CANCER DX Exam Vital Signs (past 8 hours): - 06/03/18 04:50 06/03/18 08:00 06/03/18 09:29 Temperature 99.7 F H 98.6 F Pulse Rate 100 H 91 H Respiratory Rate 22 17 Blood Pressure 105/72 124/77 Pulse Oximetry 99 99 99 Oxygen Delivery Method Room Air Oxygen Flow Rate 0 Narrative Exam Narrative: NO ACUTE DISTRESS. PATIENT IS ALERT ORIENTED X3. CACHECTIC ; MALNOURISHED VITAL SIGNS STABLE HEAD ATRAUMATIC NORMOCEPHALIC NECK : SUPPLE WITHOUT ADENOPATHY NO CAROTID BRUITS EYE: EOMI, PERRLA, NORMAL CONJUNCTIVA; NO JAUNDICE CHEST: REGULAR RATE. NO RUBS. PMI IS NON DISPLACED; NORMAL S1-S2 PULMONARY: DECREASED BS OVER THE BASES. MILD BIBASILAR CRACKLES NOTED; NO INCREASED DULLNESS TO PERCUSSION ABDOMEN: SOFT. NONTENDER. NONDISTENDED. BOWEL SOUNDS HYPOACTIVE. NO MASS. COLOSTOMY NOTED EXTREMITIES: NO EDEMA.. NO CYANOSIS CLUBBING NOTED. NEURO: CRANIAL NERVES 2-12 GROSSLY INTACT. NO FOCAL NEUROLOGICAL DEFICIT NOTED. MSK: NORMAL RANGE OF MOTION FOR AGE. NO JOINT EFFUSION. SKIN: NORMAL FOR ETHNICITY; NO ECCHYMOSIS. NO LESION. GOOD TURGOR.; NO RASHES : NORMAL EXTERNAL GENITALIA. PSYCH : APPROPRIATE MOOD AND AFFECT. ALERT AWAKE ORIENTED X3 Objective Labs Result Diagrams: 06/03/18 04:52 06/03/18 04:52 Labs: Laboratory Results - last 24 hr 06/02/18 06/02/18 06/02/18 14:40 14:40 14:40 WBC 17.6 H RBC 5.50 H Hgb 16.4 H Hct 49.0 H MCV 89.0 MCH 29.8 MCHC 33.5 RDW 13.9 Plt Count 285 Neut % (Auto) Not Reportable Lymph % (Auto) Not Reportable [place] % (Auto) Not Reportable Eos % (Auto) Not Reportable Baso % (Auto) Not Reportable Neut # (Auto) Total Counted 100 Seg Neutrophils % 34.0 L Band Neutrophils % 1.0 L Lymphocytes % (Manual) 58.0 H Atypical Lymphs % 5.0 H Monocytes % (Manual) 1.0 L Eosinophils % (Manual) 1.0 L Neutrophils # (Manual) 6160 H RBC Morphology Normal morphology Sodium 135 L Potassium 4.7 Chloride 98 Carbon Dioxide 20 L BUN 72 H Creatinine 1.90 H Estimated GFR 25.8 L BUN/Creatinine Ratio 37.9 H Glucose 179 H Lactate Calcium 11.1 H Phosphorus Magnesium Total Bilirubin AST ALT Alkaline Phosphatase Troponin I 0.030 Total Protein Albumin Globulin Albumin/Globulin Ratio Procalcitonin 0.13 Urine Color Urine Appearance Urine pH Ur Specific [place] Urine Protein Urine Glucose (UA) Urine Ketones Urine Occult Blood Urine Nitrate Urine Bilirubin Urine Urobilinogen Ur Leukocyte Esterase Urine RBC Urine WBC Ur Squamous Epith Cells Ur Transition Epith Cell Ur Renal Epithelial Cell Urine Bacteria Hyaline Casts Granular Casts Ur Culture Indicated? Micro UA Comment Ur Random Sodium Ur Random Potassium Urine Creatinine 06/02/18 06/02/18 06/03/18 14:40 17:45 04:52 WBC 19.6 H RBC 4.53 Hgb 13.1 Hct 40.4 MCV 89.3 MCH 29.0 MCHC 32.4 RDW 13.5 Plt Count 202 Neut % (Auto) 56.3 Lymph % (Auto) 39.2 [place] % (Auto) 4.3 Eos % (Auto) 0.1 L Baso % (Auto) 0.1 Neut # (Auto) 72635 H Total Counted Seg Neutrophils % Band Neutrophils % Lymphocytes % (Manual) Atypical Lymphs % Monocytes % (Manual) Eosinophils % (Manual) Neutrophils # (Manual) RBC Morphology Sodium Potassium Chloride Carbon Dioxide BUN Creatinine Estimated GFR BUN/Creatinine Ratio Glucose Lactate 1.7 Calcium Phosphorus 4.5 H Magnesium 2.2 Total Bilirubin AST ALT Alkaline Phosphatase Troponin I Total Protein Albumin Globulin Albumin/Globulin Ratio Procalcitonin Urine Color Urine Appearance Urine pH Ur Specific [place] Urine Protein Urine Glucose (UA) Urine Ketones Urine Occult Blood Urine Nitrate Urine Bilirubin Urine Urobilinogen Ur Leukocyte Esterase Urine RBC Urine WBC Ur Squamous Epith Cells Ur Transition Epith Cell Ur Renal Epithelial Cell Urine Bacteria Hyaline Casts Granular Casts Ur Culture Indicated? Micro UA Comment Ur Random Sodium Ur Random Potassium Urine Creatinine 06/03/18 06/03/18 06/03/18 04:52 08:00 08:00 WBC RBC Hgb Hct MCV MCH MCHC RDW Plt Count Neut % (Auto) Lymph % (Auto) [place] % (Auto) Eos % (Auto) Baso % (Auto) Neut # (Auto) Total Counted Seg Neutrophils % Band Neutrophils % Lymphocytes % (Manual) Atypical Lymphs % Monocytes % (Manual) Eosinophils % (Manual) Neutrophils # (Manual) RBC Morphology Sodium 136 L Potassium 4.9 Chloride 110 H Carbon Dioxide 17 L BUN 46 H Creatinine 1.00 Estimated GFR 54.2 L BUN/Creatinine Ratio 46.0 H Glucose 111 H Lactate Calcium 9.3 Phosphorus 3.6 Magnesium Total Bilirubin 0.3 AST 32 ALT 36 Alkaline Phosphatase 95 Troponin I Total Protein 6.4 Albumin 3.4 L Globulin 3.0 Albumin/Globulin Ratio 1.1 Procalcitonin Urine Color Yellow Urine Appearance Clear Urine pH 5.0 Ur Specific [place] 1.020 Urine Protein Negative Urine Glucose (UA) Trace Urine Ketones Negative Urine Occult Blood Trace-lysed Urine Nitrate Negative Urine Bilirubin Negative Urine Urobilinogen 0.2 Ur Leukocyte Esterase 2+ H Urine RBC 0-1/hpf Urine WBC 30-100/hpf H Ur Squamous Epith Cells 5-10 /hpf H Ur Transition Epith Cell 1-5/hpf Ur Renal Epithelial Cell 1-5/hpf Urine Bacteria Moderate (10-30) H Hyaline Casts 0-1/lpf Granular Casts 1-5/lpf Ur Culture Indicated? Not Reportable Micro UA Comment Ur Random Sodium < 5 L Ur Random Potassium 59.4 Urine Creatinine 68.6 Assessment & Plan Plan: Assessment/Plan Narrative: IMPRESSION AND PLAN GENERALIZED WEAKNESS; MULTIFACTERIAL; PT/OT ORDERED; AMBULATE TID; OOB/ IN CHAIR WITH EACH MEAL; FALL AND ASPIRATION PRECAUTIONS LEUKOCYTOSIS; THIS APPEARS TO BE CHRONIC ; SUSPECT LEUKEMIA VS LYMPHOMA ; PATIENT DENIED DX DESPITE NOTATION FROM PRIOR DOC; MONITOR FOR NOW; NO INFECTION SUSPECTED S/P SMALL BOWEL RESECTION WITH COLOSTOMY; WOUND / COLOSTOMY CARE INDICATED DAILY; ADDITIONAL MANAGEMENT INDICATED DC PER CLINICAL COURSE LIKELY DC TO SNF IF OK WITH PATIENT CM/SW ON BOARD FOR DISCHARGE PLANNING ASSISTANCE DEHYDRATION ; RESOLVING; CONT CURRENT FLUID IV; ENCOURAGE ORAL INTAKES SEVERE PROTEIN DEF MALNUTRITION; STARTED ON MEGACE; WILL CONSULT DIETITIAN ; REG DIET; ENSURE WITH EACH MEAL; ENCOURAGE TO EAT MUSH POSSIBLE ACUTE ON CHRONIC RENAL DISEASE STAGE 2-3 ; IMPROVING ; CONT IVF; DAILY LABS TO FOLLOW; AVOID NEPHROTOXIC MEDS METABOLIC ACIDOSIS; COULD BE RELATED TO RENAL FAILURE; MONITOR FOR NOW; CONT IVF; ADDITIONAL MANAGEMENT INDICATED COPD PER HX; NO S/S OF ACUTE EXACERBATION; PRN DUONEBS TREATMENT POSS CLL; DENIED DX; MONITOR CLOSELY WITH DAILY CBC WHILE IN HOUSE HTN PER HX; HOME MEDS; VS PER UNIT PROTOCOL PHYSICAL DECONDITIONING; WILL ORDER PT/OT; REFER TO SNF ON DISPOSITION POOR GAIT DUE TO PHYSICAL DECONDITIONING; REFER TO SNF ON DISPOSITION; FALL PRECAUTIONS Quality VTE Deep Vein Thrombosis/Pulmonary Embolism Present on Admission: No
[2018-06-03 10:47] LABS: Phosphorous Urine Random 49.5 mg/dL
--- NOTE | 2018-06-03 12:05 | OT.IP.TRT ---
Current Diagnoses Acute kidney failure, unspecified (06/02/18) Occupational Therapy Treatment Note M3 OT- IP Subjective and Pain Start: 06/03/18 12:04 Freq: Status: Active Protocol: Document 06/03/18 12:04 [facility] (Rec: 06/03/18 12:05 [facility] [id number]) OT- Subjective Occupational Therapy Visit Type Type Patient Refusal Notes Pt states too tired and not wanting to get up at this time for OT eval and would rather do it tomorrow. Pt's states after last discharge from hospital pt has gotten weaker physically and also not remembering as well. To attempt OT eval tomorrow.
--- NOTE | 2018-06-03 14:51 | PT.IPTN ---
Current Diagnoses Acute kidney failure, unspecified (06/02/18) Physical Therapy Treatment Note M3 PT-IP Subjective Start: 06/03/18 16:22 Freq: NEEDED Status: Active Protocol: Document 06/03/18 14:51 (Rec: 06/03/18 16:25 [id number]) Subjective Physical Therapy Visit Type Type Treatment Note Notes Rounded on pt at 1451 and pt states not wanting to try PT yet. She is just feeling very fatigued and wants to try tomorrow. PT will round in morning on pt.
--- NOTE | 2018-06-03 15:10 | PC.NURSE ---
Wound Ostomy Nurses Note Called to see Maria Dolores because her ileostomy pouch was leaking. I did stop in to see Maria Dolores last evening when she was admitted but her chart was not available for charting. Last evening her pouching appliance was applied by her Ned. He was there when I was there last evening. Maria Dolores has not been eating and drinking. Ned states she has been admitted for dehydration. Maria Dolores is awake in bed and she does know whom I am, Ned is also here at her bedside. I did remove her pouching appliance because it was leaking. The stoma is bright red, moist. It is a loop ileostomy and well budded above the skin level. She has light brown liquid drainage. There is an area of denuded skin at the 6:00 position. I used the crusting technique and placed stoma paste around the wafer then applied the wafer. I used a Bugcrowdatec Flat 45mm wafer with a transparent non-filtered pouch. She also has an area on her old incision line that looks like hypergranulation tissue. It bleeds easily when touched. Ned states that this was bleeding last night in the ER and they irrigated it with iodine. I do not see any depth to this, and I do not see any drainage. I cleaned the hypergranulation tissue with Normal Saline and place a small piece of gauze over it and secured with hypafix tape. I will check on Maria Dolores again tomorrow morning.
[2018-06-03] MEDS: CEFTRIAXONE 2 GM/50 ML FROZ.PIGGY IV (15:35)
--- NOTE | 2018-06-03 15:36 | PC.NURSE ---
Shift summary: A&O X3. Weak, up to chair earlier with 1-person assist. Had one episode of emesis this morning (50 ml), denied nausea afterwards so no anti-emetic was given. Hardly ate anything today- did drink one bottle of ensure at breakfast. Ostomy appliance was changed by JOVANNY Brown (see her note for details). Patient's UA was sent this morning, and this board writer spoke with MD who ordered IV abx based on the results. Patient resting quietly most of the day. Able to make needs known. Fall precautions in place.
--- NOTE | 2018-06-03 16:25 | CM.DANOTE ---
DCP/Assessment: Reviewed chart. Patient is a 73yr old female admitted [facility] with [facility]. PCP is Dr. Russo. Primary payor is 1)Medicare 2)[employer]. Met with patient explained CM/SW role. Patient very sleepy at time of visit. Patient reports that she resides with spouse in small home in [place]. Patient reports that she uses walker on regular basis but rarely needs or uses wheelchair. Patient reports her residence too small for either. Per notes, patient underwent diverting loop ileostomy on 03-23-18. Patient with very vague/flat affect answers during interview. Patient currently with PT/OT evaluations pending. Patient reports that she has never been to rehab/SNF. Unclear at this time of d/c needs. Anticipate she will need either HH or SNF. P: PRINTED CIRCUIT BOARD ASSEMBLER to follow closely. Pt.'s DPOA is friend in [facility]? Unclear of patient's relationship with spouse. Patient currently full code. ANGEL Clement Discharge Planning/Care Management CM Discharge Assessment Start: 06/03/18 16:22 Freq: Status: Active Protocol: Document 06/03/18 16:23 [facility] (Rec: 06/03/18 16:25 KJS [id number]) Discharge Planning Assessment Assigned Accounting System Expert ANGEL Clement Contact Information Cris Warren (spouse) [phone] Advance Directives? Yes: requested from History Provided By Patient Medical Record Prior Living Arrangements House Household Members spouse Type of transporation used prior to Relies on Others admit Independent with ADL's Unclear at this time. Is patient alert and oriented? Yes DME Already Rented / Owned Wheelchair FWW / Walker Barriers to Discharge No Discharge Plan Home Transportation Arrangement Spouse Referrals Initiated None needed Whiteboard Updated in Patient Room with Yes name and ext. # of Accounting System Expert Review Status In Process Please Provide Date Initial DC 06/03/18 Assessment Was Performed Next Review Type Continued Stay Review
[2018-06-03] MEDS: LATANOPROST 0.005% OPHTH 2.5 ML 1 DROPS EYE-BOTH (21:47)
--- NOTE | 2018-06-03 22:44 | PC.NURSE ---
Rhonda Shift Note: Patient had small bought of emesis this shift. Zofran not effective for nausea but patient refused promethazine suppository. Patient urine very concentrated with strong odor. Patient very weak, using one person assist to transfer to bedside commode. VSS, No acute distress. Will continue to monitor.
[2018-06-04] VITALS (8 sets, daily range): BP systolic 112–123; BP diastolic 70–78; PULSE 99–113; RESP 16–18; TEMP 36.6–37.7; O2SAT 96–100
[2018-06-04 06:01] LABS: Alanine Aminotransferase 32 IU/L (9-52); Albumin 3.2 g/dL (3.5-5.0); Alkaline Phosphatase 90 U/L (38-126); Aspartate Aminotransferase 25 IU/L (14-36); Bilirubin Total 0.3 mg/dL (0.2-1.3); Blood Urea Nitrogen 27 mg/dL (7-17); Calcium 9.5 mg/dL (8.4-10.2); Carbon Dioxide 21 mmol/L (22-32); Chloride 113 mmol/L (98-107); Estimated Glomerular Filt Rate > 60.0 mL/min (>60); Globulin 3.2 g/dL (1.7-4.1); Glucose 96 mg/dL (80-110); HEMOLYSIS < 15 (0-50); Phosphorous 2.7 mg/dL (2.8-4.1); Potassium 4.3 mmol/L (3.4-5.1); Sodium 143 mmol/L (137-145); Total Protein 6.4 g/dL (6.3-8.2)
[2018-06-04] MEDS: PANTOPRAZOLE 20 MG TABLET PO (06:09)
[2018-06-04] MEDS: SODIUM CHLORIDE 0.9% 1,000 ML 100 ML IV (06:13)
--- NOTE | 2018-06-04 09:20 | PM.PN.1 ---
Subjective Date Patient Seen: 06/04/18 Time Patient Seen: 07:00 Interval history: FEELING MUCH BETTER TODAY MENTALLY AND PHYSICALLY NO SIGNIFICANT ISSUES OVERNIGHT NO CP/SOB THIS AM NO FEVER OR CHILLS Exam Vital Signs (past 8 hours): - 06/04/18 05:20 Temperature 99.9 F H Pulse Rate 99 H Respiratory Rate 16 Blood Pressure 123/73 Pulse Oximetry 99 Oxygen Delivery Method Room Air Oxygen Flow Rate 0 Narrative Exam Narrative: NO ACUTE DISTRESS. PATIENT IS ALERT ORIENTED X3. CACHECTIC ; MALNOURISHED VITAL SIGNS STABLE HEAD ATRAUMATIC NORMOCEPHALIC NECK : SUPPLE WITHOUT ADENOPATHY NO CAROTID BRUITS EYE: EOMI, PERRLA, NORMAL CONJUNCTIVA; NO JAUNDICE CHEST: REGULAR RATE. NO RUBS. PMI IS NON DISPLACED; NORMAL S1-S2 PULMONARY: DECREASED BS OVER THE BASES. MILD BIBASILAR CRACKLES NOTED; NO INCREASED DULLNESS TO PERCUSSION ABDOMEN: SOFT. NONTENDER. NONDISTENDED. BOWEL SOUNDS HYPOACTIVE. NO MASS. COLOSTOMY NOTED ; BOWEL MATERIALS NOTED IN BAG EXTREMITIES: NO EDEMA.. NO CYANOSIS CLUBBING NOTED. NEURO: CRANIAL NERVES 2-12 GROSSLY INTACT. NO FOCAL NEUROLOGICAL DEFICIT NOTED. MSK: NORMAL RANGE OF MOTION FOR AGE. NO JOINT EFFUSION. SKIN: NORMAL FOR ETHNICITY; NO ECCHYMOSIS. NO LESION. GOOD TURGOR.; NO RASHES : NORMAL EXTERNAL GENITALIA. PSYCH : APPROPRIATE MOOD AND AFFECT. ALERT AWAKE ORIENTED X3 Objective Labs Result Diagrams: 06/03/18 04:52 06/04/18 05:11 Labs: Laboratory Results - last 24 hr 06/03/18 06/03/18 06/04/18 08:00 08:00 05:11 Sodium 143 Potassium 4.3 Chloride 113 H Carbon Dioxide 21 L BUN 27 H Creatinine 0.90 Estimated GFR > 60.0 BUN/Creatinine Ratio 30.0 H Glucose 96 Calcium 9.5 Phosphorus 2.7 L Total Bilirubin 0.3 AST 25 ALT 32 Alkaline Phosphatase 90 Total Protein 6.4 Albumin 3.2 L Globulin 3.2 Albumin/Globulin Ratio 1.0 Ur Random Sodium < 5 L Ur Random Potassium 59.4 Ur Random Phosphorus 49.5 Ur Random Calcium 11.0 Urine Creatinine 68.6 Assessment & Plan Plan: Assessment/Plan Narrative: IMPRESSION AND PLAN GENERALIZED WEAKNESS; MULTIFACTERIAL; PT/OT WORKING WITH PT WHILE IN HOUSE; CONT TO AMBULATE TID; OOB/ IN CHAIR WITH EACH MEAL; FALL AND ASPIRATION PRECAUTIONS LEUKOCYTOSIS; THIS APPEARS TO HAVE A CHRONIC COMPONENT; SUSPECT POSS LEUKEMIA VS LYMPHOMA ; HOWEVER, INVOLVEMENT OF INFECTIOUS PROCESS IS A POSSIBILITY WELL; PYURIA NOTED ON UA; STARTED ON ABX ; DAILY LABS TO FOLLOW S/P SMALL BOWEL RESECTION WITH COLOSTOMY; WOUND / COLOSTOMY CARE INDICATED DAILY; ADDITIONAL MANAGEMENT INDICATED DEHYDRATION ; CONT TO IMPROVE; CONT CURRENT FLUID IV FOR NOW; ENCOURAGE ORAL INTAKES SEVERE PROTEIN DEF MALNUTRITION; STARTED ON MEGACE; HAVE PLACED A CONSULT FOR DIETITIAN TO ASSIST ; REG DIET; ENSURE WITH EACH MEAL; ENCOURAGE TO EAT MUSH POSSIBLE ACUTE RENAL FAILURE; NO CHRONIC RENAL DISEASE SUSPECTED; CGR AND CR CONT TO IMPROVE ; CONT IVF; DAILY LABS TO FOLLOW; AVOID NEPHROTOXIC MEDS; ADDITIONAL MANAGEMENT INDICATED CLINICALLY METABOLIC ACIDOSIS; IMPROVING; COULD BE RELATED TO RENAL FAILURE; MONITOR FOR NOW; CONT IVF; ADDITIONAL MANAGEMENT INDICATED COPD PER HX; NO S/S OF ACUTE EXACERBATION; PRN DUONEBS TREATMENT POSS CLL; DENIED DX; MONITOR CLOSELY WITH DAILY CBC WHILE IN HOUSE HTN PER HX; HOME MEDS; VS PER UNIT PROTOCOL PHYSICAL DECONDITIONING; WILL ORDER PT/OT; REFER TO SNF ON DISPOSITION POOR GAIT DUE TO PHYSICAL DECONDITIONING; REFER TO SNF ON DISPOSITION; FALL PRECAUTIONS LIKELY DC TO SNF ONCE STABLE CLINICALLY 48-72 HRS Quality VTE Deep Vein Thrombosis/Pulmonary Embolism Present on Admission: No
[2018-06-04 09:38] LABS: Add Manual Diff / Slide Review YES; Hematocrit 38.3 % (36-46); Hemoglobin 12.5 g/dL (12.0-16.0); Mean Corpuscular HGB Conc 32.6 % (30-36); Mean Corpuscular Hemoglobin 29.2 PG (26-34); Mean Corpuscular Volume 89.7 fL (80-100); Platelet Count 190 X10^3/uL (150-400); Red Blood Cell Count 4.27 X10^6/uL (4.0-5.2); Red Cell Distribution Width 13.8 % (11.6-14.8); White Blood Cell Count 28.7 X10^3/uL (4.5-11.0)
--- NOTE | 2018-06-04 09:39 | PT.IIE ---
Addendum entered and electronically signed by Sadie Gerber PT 06/04/18 14:12: This is to certify that I have reviewed this documentation and POC Original Note: Current Diagnoses Acute kidney failure, unspecified (06/02/18) Surgical History (Last Reviewed 06/02/18 @ 21:05 by PAULO Asif) History of colonoscopy (Acute) Status post laparoscopic colectomy (Acute) Medical History (Last Reviewed 06/04/18 @ 11:57 by Corie Meyers) Colostomy in place (Acute) Hypertension (Acute) Mild protein-calorie malnutrition (Acute) CLL (chronic lymphocytic leukemia) (Chronic) Erythrocytosis (Chronic) Glaucoma (Chronic) H/O: hysterectomy (Resolved) Mass of appendix (Resolved) Other bursal cyst, unspecified wrist (Resolved) Tubal ligation status (Resolved) Physical Therapy Inpatient Evaluation/Re-Eval M1 PT/OT-IP Prior Functional Status Start: 06/03/18 16:22 Freq: NEEDED Status: Active Protocol: Document 06/04/18 09:39 (Rec: 06/04/18 12:27 [email or web address]) Medical Review Prior Functional Status Medical History Reviewed Yes Communication No deficits noted. Her Ned states she has been becoming progressively confused just prior to this admit. Mobility and Gait Pt modified independent with ambulation. Uses no AD in home but cruises along furniture and kramer. Pt uses 4ww for 100% outdoor ambulation. Ambulation toelrances are stated as 5-10 mins. Social History Household Members spouse Living Arrangements House Number of Floors (Floors) One Floor Number of Stairs To Enter/Railing? 2 steps to enter, pt can lean on the wall for support when completing up/down stairs. Home Environment High Toilet Walk in Shower Tub/Shower Built-In Shower Seat Bidet Home Equipment Hand Held Shower Grab Bars In Shower Employment Status Retired Additional Social History Comment Pt can use the wall for support with sit <> stand from toilet. M2 PT-IP Current Condition Start: 06/03/18 16:22 Freq: NEEDED Status: Active Protocol: Document 06/04/18 09:39 (Rec: 06/04/18 12:27 [email or web address]) Physical Therapy Current Condition Current Condition Evaluation Date 06/04/18 Treatment Diagnosis Acute on chronic renal failure ; generalized weakness. Onset Date 06/02/18 Precautions Abdominal Surgery Precautions Log Roll Lifting Restrictions Gait Belt above Incisional Area Other Precautions colostomy incision still healing. PT recommended to continue with abdominal precautions. M3 PT-IP Subjective Start: 06/03/18 16:22 Freq: NEEDED Status: Active Protocol: Document 06/04/18 09:39 (Rec: 06/04/18 12:27 [email or web address]) Subjective Physical Therapy Visit Type Type Initial Evaluation Visit Start Time 09:39 Visit Stop Time 10:10 Total Visit Minutes 31 Number of LENS GRINDER ROUGH Visits 0 Physical Therapy Visit Comments Patient Comments Pt agreeable to mobilize with PT. Patient Goals Pt wants to get stronger. Would like to d/c home, but seems open to staying in SNF. M4 PT-IP Mobility and Gait Start: 06/03/18 16:22 Freq: NEEDED Status: Active Protocol: Document 06/04/18 09:39 (Rec: 06/04/18 12:27 [email or web address]) PT-Bed Mobility Assessment Rolling Type of Rolling Log Rolling Bilateral Level of Assist Minimal Assistance 1 Person Assistance Supine to Sit Supine to Sit Minimal Assistance 1 Person Assistance Sit to Supine Sit to Supine Minimal Assistance 1 Person Assistance Scooting Scooting to Edge of Bed Standby Assistance Scooting Up and Down in Bed Standby Assistance PT-Transfer Assessment Sit to and From Stand Sit to and from Stand Minimal Assistance 1 Person Assistance Use of Upper Extremities Equipment Transfer Assistive Device Gait Belt Front Wheeled Walker Orthotic/Prosthetic Devices or Brace: No Transfers Transfer Destination Bed Chair Transfer Technique Stand Step Pivot Transfer Ability Level of Assist Minimal Assistance 1 Person Assistance Comments Mobility Comments Pt seated in recliner upon PT entry. Seated/resting BP 108/ 67 HR 102. Sit <> stand requires Adam for trunk control and min cues. Pt ambulates to bedside (see below). Pt demonstrates Sit < > supine with fww requires Adam to assist legs as well as trunk to sidelying. B Log rolling pt requires increased time to complete, however demonstrates coordinated movement and requires min cues . Pt completes stand-step- pivot transfer to return to recliner using fww, Adam for sit <> stand, and CGA for stepping, min cues. Gait Assessment Gait Gait Assistance Required: Contact Guard Assist Distance (Feet) 30 Able to Maintain Weight Bearing Status Yes During Gait Assistive Devices Assistive Device Gait Belt Front Wheeled Walker Orthotic/Prosthetic Devices or Brace: No Gait Deviations General Gait Pattern Decreased Stride Length Decreased Feet Clearance Flexed Trunk Factors Limiting Gait Function Factors Limiting Gait Function Decreased Activity Tolerance Decreased Strength Poor Balance Comments Gait Comments Pt ambulates 30 ft in room with fww and CGA no cues. Pt is slow and guarded with gait, she demonstrates low clearance steps and decreased gait speed. Trunk is slightly forward with ambulation. Pt also demonstrates increasing tremor of BUE as she ambulates . Seated BP post session is 114/70 HR 106. Pt left with call light in reach. PT-Balance Assessment Sitting Balance and Reactions Static Sitting Balance Ability Good Dynamic Sitting Balance Ability Fair Standing Balance and Reactions Static Standing Balance Ability Fair Dynamic Standing Balance Ability Fair Device Used fww M5 PT-IP Objective Assessments Start: 06/03/18 16:22 Freq: NEEDED Status: Active Protocol: Document 06/04/18 09:39 (Rec: 06/04/18 12:27 [email or web address]) Orientation Orientation/Cognition Level of Alertness Alert Orientation Name Birthday Language Function Ability No Deficits Noted Safety Awareness Decreased Safety Awareness Comments Pt needs increased time for responses, but able to respond appropriately and follow directions. Gross Range of Motion Lower Extremity ROM Assessment Within Functional Limits Strength Lower Extremity Strength Assessment Bilaterally Impaired Hip B hips 3+/5 Knee B knees 4-/5 Ankle B ankles 4/5 M6 PT-IP Treatment Start: 06/03/18 16:22 Freq: NEEDED Status: Active Protocol: Document 06/04/18 09:39 (Rec: 06/04/18 12:27 [email or web address]) Physical Therapy Treatment Exercises Exercises Ankle Pumps Quad Sets Education Education Provided Precautions Safety Other Treatments Other Treatment Performed Pt advised to continue with abdominal precautions. Pt instructed in seated marching, quad sets and ankle pumps for general strengthening and endurance. M7 PT-IP Assessment and Plan Start: 06/03/18 16:22 Freq: NEEDED Status: Active Protocol: Document 06/04/18 09:39 (Rec: 06/04/18 12:27 [email or web address]) PT Summary Assessment and Plan Potential Rehabilitation Potential Fair Status of Condition at Evaluation Evolving Summary Impairments Strength Balance Bed Mobility Transfers Gait Activity Tolerance Assessment Summary Pt with generalized weakness. Pt needs 1p assist with bed mobility and transfers, CGA for very limited ambulation using fww. Pt fatigues easily with activity and demonstrates progressive shaking during ambulation and c/o of high levels of fatigue. At this time recommend d/c to SNF to progress pt mobilities vs. home with 24/7 assist and HH when pt is medically ready. Ongoing assesment will continue. Goals Bed Mobility Goal Contact Guard Assistance Transfer Goal Contact Guard Assistance Front Wheeled Walker Gait Goal Standby Assistance Front Wheel Walker Gait Distance 100 Other Goals Up/down 2 steps CGA, no rail as needed to access home safely. Days to Meet Goals 5 Frequency of Treatment Frequency Of Treatment Once a Day Treatment Plan Physical Therapy Treatment Plan Bed Mobility Training Transfer Training Gait Training Therapeutic Exercise Balance Retraining Discharge Planning Hot or Cold Pack Neuromuscular Re-ed Coordination Retraining Manual Therapy Other Recommendations and Next Treatment Ambulation. General Focus strengthening and endurance. Progress quad sets and seated marching. Recommendations To Nursing Amount of Assist Needed 1 Person Assist Discharge Recommendations PT Discharge Recommendations Home with 24/7 Assist Home Health SNF Rehab Equipment Needed for Home Before fww depending on pt status at Discharge d/c
[2018-06-04 09:50] LABS: Neutrophils Absolute Manual 23247 /uL (3000-5900); Smudge Cells 2+; Total Cells Counted 100
[2018-06-04] MEDS: HEPARIN 5,000 UNIT/ML VIAL 5000 UNIT SUBCUT ×2 (10:31→20:40)
[2018-06-04] MEDS: ASPIRIN EC 81 MG TABLET PO (10:31)
[2018-06-04] MEDS: MULTIVITAMIN 1 TABLET 1 TAB PO (10:31)
[2018-06-04] MEDS: MEGESTROL SUSP 400 MG/10 ML UDC PO (10:32)
--- NOTE | 2018-06-04 11:46 | CM.DPC ---
Referral faxed to [facility] per Shelbie
--- NOTE | 2018-06-04 13:31 | OT.IP.TRT ---
Current Diagnoses Acute kidney failure, unspecified (06/02/18) Occupational Therapy Treatment Note M3 OT- IP Subjective and Pain Start: 06/03/18 12:04 Freq: Status: Active Protocol: Document 06/04/18 13:27 [facility] (Rec: 06/04/18 13:31 [facility] [id number]) OT- Subjective Occupational Therapy Visit Type Type Patient Unavailable Notes Checked on pt in AM, already up and when checked on in PM back in bed. Able to observe pt eating and needing assist for set-up and noted after clearing her throat -wet sounding cough. Pt states at times has trouble with certain food textures and just not having appetite to eat. Spoke to nursing to request [employer] eval . Unable to do OT eval, recheck on pt in AM.
[2018-06-04 13:33] LABS: Ionized Calcium 5.3 mg/dL (4.8-5.6)
[2018-06-04] MEDS: CEFTRIAXONE 1 GM/50 ML FROZ.PIGGY IV (14:20)
--- NOTE | 2018-06-04 15:39 | CM.DPC ---
DCP Cont: Hospitalist and therapy team agree pt will require SNF, pt/spouse agreeable. Met w/pt and spouse this morning to review DCP. Pt would like to go home but understands spouse is concerned about her safety and his ability to provide the care she requires at home, both request [facility] as first choice, no b/u at this time. Sent referral to [facility] today; pt will likely remain at for 48-72 hrs. Stephanie Whitten visiting today to discuss ostomy care according to pt and spouse Patrik. JW
[2018-06-04] MEDS: LATANOPROST 0.005% OPHTH 2.5 ML 1 DROPS EYE-BOTH (20:40)
[2018-06-05] VITALS (9 sets, daily range): BP systolic 122–136; BP diastolic 75–86; PULSE 97–109; RESP 16–23; TEMP 36.7–37.6; O2SAT 94–100
--- NOTE | 2018-06-05 01:55 | PC.NURSE ---
Addendum entered by Jory Severino R.N. 06/05/18 06:20: Slept most of shift. Continues to deny pain. Bilateral UE tremors noted; states worse than prior to hospitalization but is chronic. Original Note: Patient is oriented to self, place and situation but not date/time. Breath sounds with inspiratory crackles in right LL; RA sat 99%. HRR but tachy at 110 bpm and telemetry reading was ST. Denies nausea. Reportedly has poor appetite. BT present. Has colostomy which she cares for herself. Stoma is beefy red, flatus present in bag as well as some yellow/green loose stool. Incontinent of urine but also voids on toilet. Is able to turn self in bed but needs walker and 1 assist when out of bed due to LE weakness. Denies pain. Wearing bilateral VIVI stockings. Fall risk score is high and bed alarm is activated.
[2018-06-05] MEDS: SODIUM CHLORIDE 0.9% 1,000 ML 100 ML IV (06:11)
[2018-06-05] MEDS: PANTOPRAZOLE 20 MG TABLET PO (06:13)
[2018-06-05 07:01] LABS: Alanine Aminotransferase 25 IU/L (9-52); Albumin 3.2 g/dL (3.5-5.0); Alkaline Phosphatase 107 U/L (38-126); Aspartate Aminotransferase 24 IU/L (14-36); BUN Creatinine Ratio 34.3 (6-22); Bilirubin Total 0.4 mg/dL (0.2-1.3); Blood Urea Nitrogen 24 mg/dL (7-17); Calcium 9.1 mg/dL (8.4-10.2); Carbon Dioxide 20 mmol/L (22-32); Chloride 113 mmol/L (98-107); Estimated Glomerular Filt Rate > 60.0 mL/min (>60); Globulin 3.2 g/dL (1.7-4.1); Glucose 93 mg/dL (80-110); HEMOLYSIS < 15 (0-50); Potassium 3.6 mmol/L (3.4-5.1); Sodium 146 mmol/L (137-145); Total Protein 6.4 g/dL (6.3-8.2)
[2018-06-05 07:10] LABS: Albumin 3.2 g/dL (3.5-5.0); BUN Creatinine Ratio 28.8 (6-22); Blood Urea Nitrogen 23 mg/dL (7-17); Calcium 9.1 mg/dL (8.4-10.2); Carbon Dioxide 20 mmol/L (22-32); Chloride 113 mmol/L (98-107); Estimated Glomerular Filt Rate > 60.0 mL/min (>60); Glucose 94 mg/dL (80-110); HEMOLYSIS < 15 (0-50); Phosphorous 1.5 mg/dL (2.8-4.1); Potassium 3.6 mmol/L (3.4-5.1); Sodium 145 mmol/L (137-145)
--- NOTE | 2018-06-05 09:16 | ST.IPIE ---
Current Diagnoses Acute kidney failure, unspecified (06/02/18) Past Medical History (Last Reviewed 06/04/18 @ 11:57 by Corie Meyers) Colostomy in place (Acute Medical) Hypertension (Acute Medical) Mild protein-calorie malnutrition (Acute Medical) CLL (chronic lymphocytic leukemia) (Chronic Medical) Erythrocytosis (Chronic Medical) Glaucoma (Chronic Medical) H/O: hysterectomy (Resolved Medical) Mass of appendix (Resolved Medical) Other bursal cyst, unspecified wrist (Resolved Medical) Excised 2011 Tubal ligation status (Resolved Medical) ST IP Initial Evaulation Report [employer] Clinical Swallow Evaluation Start: 06/05/18 08:50 Freq: Status: Active Protocol: Document 06/05/18 08:51 TLC (Rec: 06/05/18 09:15 TLC [id number]) Clinical Swallow Evaluation Session Time Visit Start Time 08:05 Visit Stop Time 08:30 Total Visit Minutes 25 Referral Reason for Referral OT observed wet vocal quality Setting Assessment Location Acute Care Visit Type Note Type Initial Evaluation Next Note Type Next Note Type Treatment Note Patient Information Identification Type Name History Maria Dolores was admitted for weakness and associated symptoms including diminished energy, diminished mobility, poor appetite, weight loss, and intermittent confusion. She was hospitalized in February of this year for surgery for bowel perforation. She lives at home with her in [place]. Subjective Observations Patient was dozing off but awoke to my voice and agreed to sit up to eat breakfast, though stated she didn't have much of any appetite. Evaluation Liquids Trialed Thin Bon Air Solids Trialed Regular Administration Type Self-Feeding Oral Impairment WFL Oral Phase Comments No impairments in bolus acceptance, labial seal, mastication, or oral transit. Observed white coating on patient's tongue which could be thrush vs. residue from vanilla ensure which patient drinks daily. Pharyngeal Impairment WFL Pharyngeal Phase Comments Trials limited due to patient' s lack of appetite; however, patient consumed straw sip of water, cup sip of ensure ( nectar thick) and a few grapes . Patient self-fed with appropriate bolus size and slow rate of intake, likely due to decreased appetite. No signs or symptoms of aspiration or pharyngeal dysphagia observed. Findings Impressions No signs of oral or pharyngeal dysphagia, but patient expressed she was confused about some things. She was not able to remember how long she had been in the hospital and she also wasn't able to read the clock saying I'm trying to figure this out, but it still doesn't make sense to me . Cognitive assessment was limited due to time constraints; however, follow- up for full cognitive evaluation is recommended. Diet Recommendations Liquids Order Thin Diet Order Regular Medication Recommendations As Tolerated Treatment Plan Placement Recommendations after Shelter Facility Discharge Appropriate for Therapy Yes Therapy Recommendations Cognitive evaluation and treatment as indicated.
--- NOTE | 2018-06-05 10:42 | P.PN_ITS ---
Subjective Date Patient Seen: 06/05/18 Time Patient Seen: 07:05 Interval history: REPORTED FEELING BETTER NO FEVER OR CHILLS NO OTHER COMPLAINTS AGREEABLE FOR SNF PLACEMENT NO SIGNIFICANT ISSUES OVERNIGHT Exam Vital Signs (past 8 hours): - 06/05/18 06:00 Temperature 98.0 F Pulse Rate 109 H Respiratory Rate 16 Blood Pressure 133/86 Pulse Oximetry 99 Oxygen Delivery Method Room Air Oxygen Flow Rate 0 Narrative Exam Narrative: NO ACUTE DISTRESS. PATIENT IS ALERT ORIENTED X3. CACHECTIC ; MALNOURISHED VITAL SIGNS STABLE HEAD ATRAUMATIC NORMOCEPHALIC NECK : SUPPLE WITHOUT ADENOPATHY NO CAROTID BRUITS EYE: EOMI, PERRLA, NORMAL CONJUNCTIVA; NO JAUNDICE CHEST: REGULAR RATE. NO RUBS. PMI IS NON DISPLACED; NORMAL S1-S2 PULMONARY: DECREASED BS OVER THE BASES. MILD BIBASILAR CRACKLES NOTED; NO INCREASED DULLNESS TO PERCUSSION ABDOMEN: SOFT. NONTENDER. NONDISTENDED. BOWEL SOUNDS HYPOACTIVE. NO MASS. COLOSTOMY NOTED ; BOWEL MATERIALS NOTED IN BAG EXTREMITIES: NO EDEMA.. NO CYANOSIS CLUBBING NOTED. NEURO: CRANIAL NERVES 2-12 GROSSLY INTACT. NO FOCAL NEUROLOGICAL DEFICIT NOTED. MSK: NORMAL RANGE OF MOTION FOR AGE. NO JOINT EFFUSION. SKIN: NORMAL FOR ETHNICITY; NO ECCHYMOSIS. NO LESION. GOOD TURGOR.; NO RASHES : NORMAL EXTERNAL GENITALIA. PSYCH : APPROPRIATE MOOD AND AFFECT. ALERT AWAKE ORIENTED X3 Objective Labs Result Diagrams: 06/04/18 05:11 06/05/18 06:33 Labs: Laboratory Results - last 24 hr 06/03/18 06/05/18 06/05/18 04:52 06:33 06:33 Sodium 146 H 145 Potassium 3.6 3.6 Chloride 113 H 113 H Carbon Dioxide 20 L 20 L BUN 24 H 23 H Creatinine 0.70 0.80 Estimated GFR > 60.0 > 60.0 BUN/Creatinine Ratio 34.3 H 28.8 H Glucose 93 94 Calcium 9.1 9.1 Ionized Calcium [facility] 5.3 Phosphorus 1.5 L D Total Bilirubin 0.4 AST 24 ALT 25 Alkaline Phosphatase 107 Total Protein 6.4 Albumin 3.2 L 3.2 L Globulin 3.2 Albumin/Globulin Ratio 1.0 Assessment & Plan Plan: Assessment/Plan Narrative: IMPRESSION AND PLAN GENERALIZED WEAKNESS; MULTIFACTERIAL; PT/OT WORKING WITH PT WHILE IN HOUSE ; CONT TO AMBULATE TID; OOB/ IN CHAIR WITH EACH MEAL; FALL AND ASPIRATION PRECAUTIONS LEUKOCYTOSIS; WORSENED YESTERDAY; GET CBC THIS AM; THIS APPEARS TO HAVE A CHRONIC COMPONENT; SUSPECT POSS LEUKEMIA VS LYMPHOMA ; HOWEVER, INVOLVEMENT OF INFECTIOUS PROCESS IS A POSSIBILITY WELL; PYURIA NOTED ON UA; ABX CHANGED TO CEFEPIME FOR BETTER BROADER COVERAGE; DAILY LABS TO FOLLOW S/P SMALL BOWEL RESECTION WITH COLOSTOMY; WOUND / COLOSTOMY CARE INDICATED DAILY; ADDITIONAL MANAGEMENT INDICATED DEHYDRATION ; CONT TO IMPROVE; CONT CURRENT FLUID IV FOR NOW; ENCOURAGE ORAL INTAKES SEVERE PROTEIN DEF MALNUTRITION; STARTED ON MEGACE; HAVE PLACED A CONSULT FOR DIETITIAN TO ASSIST ; REG DIET; ENSURE WITH EACH MEAL; ENCOURAGE TO EAT MUSH POSSIBLE ACUTE RENAL FAILURE; NO CHRONIC RENAL DISEASE SUSPECTED; GFR AND CR CONT TO IMPROVE ; CONT IVF; DAILY LABS TO FOLLOW; AVOID NEPHROTOXIC MEDS; ADDITIONAL MANAGEMENT INDICATED CLINICALLY METABOLIC ACIDOSIS; IMPROVING; COULD BE RELATED TO RENAL FAILURE; MONITOR FOR NOW; CONT IVF; ADDITIONAL MANAGEMENT INDICATED COPD PER HX; NO S/S OF ACUTE EXACERBATION; PRN DUONEBS TREATMENT POSS CLL; DENIED DX; MONITOR CLOSELY WITH DAILY CBC WHILE IN HOUSE HTN PER HX; HOME MEDS; VS PER UNIT PROTOCOL PHYSICAL DECONDITIONING; WILL ORDER PT/OT; REFER TO SNF ON DISPOSITION POOR GAIT DUE TO PHYSICAL DECONDITIONING; REFER TO SNF ON DISPOSITION; FALL PRECAUTIONS HYPOPHOSPH; WILL REPLACE ORALLY TODAY; LABS IN AM LIKELY DC TO SNF ONCE STABLE CLINICALLY IN NEXT 24- 48 HRS Quality VTE Deep Vein Thrombosis/Pulmonary Embolism Present on Admission: No
--- NOTE | 2018-06-05 10:54 | PT.IPTN ---
Addendum entered and electronically signed by Sadie Gerber PT 06/05/18 12:50: This is to certify that I have reviewed this documentation and POC. Original Note: Current Diagnoses Acute kidney failure, unspecified (06/02/18) Physical Therapy Treatment Note M2 PT-IP Current Condition Start: 06/03/18 16:22 Freq: NEEDED Status: Active Protocol: Document 06/04/18 09:39 (Rec: 06/04/18 12:27 [id number]) Physical Therapy Current Condition Current Condition Evaluation Date 06/04/18 Treatment Diagnosis Acute on chronic renal failure ; generalized weakness. Onset Date 06/02/18 Precautions Abdominal Surgery Precautions Log Roll Lifting Restrictions Gait Belt above Incisional Area Other Precautions colostomy incision still healing. PT recommended to continue with abdominal precautions. M3 PT-IP Subjective Start: 06/03/18 16:22 Freq: NEEDED Status: Active Protocol: Document 06/05/18 12:34 (Rec: 06/05/18 12:35 [id number]) Subjective Physical Therapy Visit Type Type Treatment Note Notes PT rounded on pt at 10:54. She had just completed sessions with OT and Speech and states feeling extremely exhausted. She requests that PT come back in the afternoon. PT agreed. Will round on pt in afternoon as schedule allows. M4 PT-IP Mobility and Gait Start: 06/03/18 16:22 Freq: NEEDED Status: Active Protocol: Document 06/04/18 09:39 (Rec: 06/04/18 12:27 [email or web address]) PT-Bed Mobility Assessment Rolling Type of Rolling Log Rolling Bilateral Level of Assist Minimal Assistance 1 Person Assistance Supine to Sit Supine to Sit Minimal Assistance 1 Person Assistance Sit to Supine Sit to Supine Minimal Assistance 1 Person Assistance Scooting Scooting to Edge of Bed Standby Assistance Scooting Up and Down in Bed Standby Assistance PT-Transfer Assessment Sit to and From Stand Sit to and from Stand Minimal Assistance 1 Person Assistance Use of Upper Extremities Equipment Transfer Assistive Device Gait Belt Front Wheeled Walker Orthotic/Prosthetic Devices or Brace: No Transfers Transfer Destination Bed Chair Transfer Technique Stand Step Pivot Transfer Ability Level of Assist Minimal Assistance 1 Person Assistance Comments Mobility Comments Pt seated in recliner upon PT entry. Seated/resting BP 108/ 67 HR 102. Sit <> stand requires Adam for trunk control and min cues. Pt ambulates to bedside (see below). Pt demonstrates Sit < > supine with fww requires Adam to assist legs as well as trunk to sidelying. B Log rolling pt requires increased time to complete, however demonstrates coordinated movement and requires min cues . Pt completes stand-step- pivot transfer to return to recliner using fww, Adam for sit <> stand, and CGA for stepping, min cues. Gait Assessment Gait Gait Assistance Required: Contact Guard Assist Distance (Feet) 30 Able to Maintain Weight Bearing Status Yes During Gait Assistive Devices Assistive Device Gait Belt Front Wheeled Walker Orthotic/Prosthetic Devices or Brace: No Gait Deviations General Gait Pattern Decreased Stride Length Decreased Feet Clearance Flexed Trunk Factors Limiting Gait Function Factors Limiting Gait Function Decreased Activity Tolerance Decreased Strength Poor Balance Comments Gait Comments Pt ambulates 30 ft in room with fww and CGA no cues. Pt is slow and guarded with gait, she demonstrates low clearance steps and decreased gait speed. Trunk is slightly forward with ambulation. Pt also demonstrates increasing tremor of BUE as she ambulates . Seated BP post session is 114/70 HR 106. Pt left with call light in reach. PT-Balance Assessment Sitting Balance and Reactions Static Sitting Balance Ability Good Dynamic Sitting Balance Ability Fair Standing Balance and Reactions Static Standing Balance Ability Fair Dynamic Standing Balance Ability Fair Device Used fww M5 PT-IP Objective Assessments Start: 06/03/18 16:22 Freq: NEEDED Status: Active Protocol: Document 06/04/18 09:39 (Rec: 06/04/18 12:27 [email or web address]) Orientation Orientation/Cognition Level of Alertness Alert Orientation Name Birthday Language Function Ability No Deficits Noted Safety Awareness Decreased Safety Awareness Comments Pt needs increased time for responses, but able to respond appropriately and follow directions. Gross Range of Motion Lower Extremity ROM Assessment Within Functional Limits Strength Lower Extremity Strength Assessment Bilaterally Impaired Hip B hips 3+/5 Knee B knees 4-/5 Ankle B ankles 4/5 M6 PT-IP Treatment Start: 06/03/18 16:22 Freq: NEEDED Status: Active Protocol: Document 06/04/18 09:39 (Rec: 06/04/18 12:27 [email or web address]) Physical Therapy Treatment Exercises Exercises Ankle Pumps Quad Sets Education Education Provided Precautions Safety Other Treatments Other Treatment Performed Pt advised to continue with abdominal precautions. Pt instructed in seated marching, quad sets and ankle pumps for general strengthening and endurance. M7 PT-IP Assessment and Plan Start: 06/03/18 16:22 Freq: NEEDED Status: Active Protocol: Document 06/04/18 09:39 (Rec: 06/04/18 12:27 [email or web address]) PT Summary Assessment and Plan Potential Rehabilitation Potential Fair Status of Condition at Evaluation Evolving Summary Impairments Strength Balance Bed Mobility Transfers Gait Activity Tolerance Assessment Summary Pt with generalized weakness. Pt needs 1p assist with bed mobility and transfers, CGA for very limited ambulation using fww. Pt fatigues easily with activity and demonstrates progressive shaking during ambulation and c/o of high levels of fatigue. At this time recommend d/c to SNF to progress pt mobilities vs. home with 24/7 assist and HH when pt is medically ready. Ongoing assesment will continue. Goals Bed Mobility Goal Contact Guard Assistance Transfer Goal Contact Guard Assistance Front Wheeled Walker Gait Goal Standby Assistance Front Wheel Walker Gait Distance 100 Other Goals Up/down 2 steps CGA, no rail as needed to access home safely. Days to Meet Goals 5 Frequency of Treatment Frequency Of Treatment Once a Day Treatment Plan Physical Therapy Treatment Plan Bed Mobility Training Transfer Training Gait Training Therapeutic Exercise Balance Retraining Discharge Planning Hot or Cold Pack Neuromuscular Re-ed Coordination Retraining Manual Therapy Other Recommendations and Next Treatment Ambulation. General Focus strengthening and endurance. Progress quad sets and seated marching. Recommendations To Nursing Amount of Assist Needed 1 Person Assist Discharge Recommendations PT Discharge Recommendations Home with 24/7 Assist Home Health SNF Rehab Equipment Needed for Home Before fww depending on pt status at Discharge d/c
[2018-06-05 11:04] LABS: Hematocrit 36.9 % (36-46); Hemoglobin 12.1 g/dL (12.0-16.0); Mean Corpuscular HGB Conc 32.8 % (30-36); Mean Corpuscular Hemoglobin 29.3 PG (26-34); Mean Corpuscular Volume 89.4 fL (80-100); Platelet Count 165 X10^3/uL (150-400); Red Blood Cell Count 4.12 X10^6/uL (4.0-5.2); Red Cell Distribution Width 13.6 % (11.6-14.8); White Blood Cell Count 28.3 X10^3/uL (4.5-11.0)
[2018-06-05] MEDS: CEFEPIME 1 GM in SODIUM CHLORIDE 0.9% 100 ML 200 ML IV ×2 (11:06→21:23)
[2018-06-05 11:07] LABS: Add Manual Diff / Slide Review YES
[2018-06-05] MEDS: ASPIRIN EC 81 MG TABLET PO (11:07)
[2018-06-05] MEDS: HEPARIN 5,000 UNIT/ML VIAL 5000 UNIT SUBCUT ×2 (11:07→21:24)
[2018-06-05] MEDS: MULTIVITAMIN 1 TABLET 1 TAB PO (11:07)
[2018-06-05] MEDS: SODIUM,POTASSIUM PHOSPHATES PACKET 2 EACH PO (11:08)
[2018-06-05] MEDS: MEGESTROL SUSP 400 MG/10 ML UDC PO (11:08)
[2018-06-05 11:22] LABS: Neutrophils Absolute Manual 22074 /uL (3000-5900); RBC Morphology Normal Morphology; Smudge Cells 2+; Total Cells Counted 100
--- NOTE | 2018-06-05 11:41 | OT.IP.EVAL ---
Current Diagnoses Acute kidney failure, unspecified (06/02/18) Past Medical History (Last Reviewed 06/04/18 @ 11:57 by Corie Meyers) Colostomy in place (Acute) Hypertension (Acute) Mild protein-calorie malnutrition (Acute) CLL (chronic lymphocytic leukemia) (Chronic) Erythrocytosis (Chronic) Glaucoma (Chronic) H/O: hysterectomy (Resolved) Mass of appendix (Resolved) Other bursal cyst, unspecified wrist (Resolved) Tubal ligation status (Resolved) Surgical History (Last Reviewed 06/02/18 @ 21:05 by [facility]) History of colonoscopy (Acute) Status post laparoscopic colectomy (Acute) Occupational Therapy Inpatient Evaluation/Re-Eval M1 PT/OT-IP Prior Functional Status Start: 06/03/18 16:22 Freq: NEEDED Status: Active Protocol: Document 06/05/18 11:10 [facility] (Rec: 06/05/18 11:41 [facility] [id number]) Medical Review Prior Functional Status Medical History Reviewed Yes Communication No deficits noted. Her Ned states she has been becoming progressively confused just prior to this admit. Mobility and Gait Pt modified independent with ambulation. Uses no AD in home but cruises along furniture and kramer. Pt uses 4ww for 100% outdoor ambulation. Ambulation toelrances are stated as 5-10 mins. Activities of Daily Living and IADL's Pt states prior able to do basic ADL's and would do all IADL needs, money and bill management needs. Social History Household Members spouse Living Arrangements House Number of Floors (Floors) One Floor Number of Stairs To Enter/Railing? 2 steps to enter, pt can lean on the wall for support when completing up/down stairs. Home Environment High Toilet Walk in Shower Tub/Shower Built-In Shower Seat Bidet Home Equipment Hand Held Shower Grab Bars In Shower Employment Status Retired Additional Social History Comment Pt can use the wall for support with sit <> stand from toilet. M2 OT-IP Current Condition Start: 06/03/18 12:04 Freq: Status: Active Protocol: Document 06/05/18 11:10 [facility] (Rec: 06/05/18 11:41 [facility] [id number]) Occupational Therapy Current Condition Current Condition Evaluation Date 12/13/18 Treatment Diagnosis weakness Diagnosis Onset Date 06/02/18 Post Operative Precautions Abdominal Surgery Precautions Log Roll Lifting Restrictions Gait Belt above Incisional Area Other Precautions colostomy incision still healing. PT recommended to continue with abdominal precautions. M3 OT- IP Subjective and Pain Start: 06/03/18 12:04 Freq: Status: Active Protocol: Document 06/05/18 11:10 [facility] (Rec: 06/05/18 11:41 [facility] [id number]) OT- Subjective Occupational Therapy Visit Type Type Initial Evaluation Visit Start Time 10:00 Visit Stop Time 10:45 Total Visit Minutes 45 Occupational Therapy Visit Comments Patient Comments Pt not wanting to get up be willing to do cognitive assessment. OT Pain Assessment Pain When Pain Assessed At Rest Pain Present Pain Present Denied Pain M4 OT- IP ADL's Start: 06/03/18 12:04 Freq: Status: Active Protocol: Document 06/05/18 11:10 [facility] (Rec: 06/05/18 11:41 [facility] [id number]) OT NFX-Aloc-Ynzkibt General Evaluation Self-Feeding Ability Standby Assistance Areas Needing Assistance Opening Containers Comments OT Self-Feeding Comments Pt needing assist to open small items on try otherwise able to use utensil and cup to bring to her mouth. OT ADL-Dressing General Eval Lower Body Dressing Ability Maximum Assistance Areas Needing Assistance Underpants/Brief Socks Comments OT Dressing Comments Pt needing assist to cr brief up and down over hips, to thread feet into brief and dependent for socks. OT ADL-Toileting General Evaluation Toileting Ability Moderate Assistance Areas Needing Assistance Manage Clothing Perform Perineal Hygiene Comments OT Toileting Comments MOD A for completeness for hygiene and brief management needs. M5 OT- IP IADL's Start: 06/03/18 12:04 Freq: Status: Active Protocol: Document 06/05/18 11:10 [facility] (Rec: 06/05/18 11:41 [facility] [id number]) OT-Instrumental Activities of Daily Living Medication Management Medication Management Caregiver Administers Money Management Money Management Caregiver Provides Assistance Meal Preparation Meal Preparation Caregiver Provides Assist Cross Country And Track And Field Coach Cross Country And Track And Field Coach Caregiver Provides Assist Driving Driving Caregiver Provides Assist M6 OT- IP Functional Cognition Start: 06/03/18 12:04 Freq: Status: Active Protocol: Document 06/05/18 11:10 [facility] (Rec: 06/05/18 11:41 [facility] [id number]) Cognitive Factors Limiting Selfcare Function Cognitive Ability Level of Alertness Alert Patient Orientation Name Place Situation Attention Span Ability Capable of Focused Attention Capable of Sustained Attention Ability to Follow Commands Able to Follow One Step Commands Memory Description Immediate Impaired Short Term Impaired Working Impaired Safety Awareness Underestimates Need for Assistance Problem Solving Ability Unable to Identify Errors Needs Assist to Identify Solutions Executive Function Ability Unable to Filter Distractions Unable to Make Plans Unable to Organize Plans Unable to Remember Details Unable to Integrate Past Experience With Present Action Cognitive Tests SLUMS Pt scored 12/30 which normal score is 27/30. Pt not able to do number calculations , stating numbers backwards, short term memory recall and how to draw at clock. Pt also not able to recall instructions of certain tasks . Cognitive Comments Cognitive Assessment Comments Pt decreased STM, and needing concrete simple commands, and needing vc to complete sequence for toileting needs. OT- Vision and Hearing OT- Hearing Assessment OT- Hearing Assessment WFL M7 OT- IP Mobility and Balance Start: 06/03/18 12:04 Freq: Status: Active Protocol: Document 06/05/18 11:10 [facility] (Rec: 06/05/18 11:41 [facility] [id number]) OT- Bed Mobility Assessment Rolling Type of Rolling Roll to Right Level of Assistance Standby Assistance Supine to Sit Supine to Sit Assist Contact Guard Assistance Sit to Supine Sit to Supine Assist Contact Guard Assistance Scooting Scooting to Edge of Bed Standby Assistance OT-Transfer Assessment Sit to and From Stand Sit to and from Stand Minimal Assistance 1 Person Assistance Transfers Transfer Ability Contact Guard Assistance Technique Transfer Destination Bed Toilet Transfer Technique Stand Step Pivot Devices Transfer Assistive Devices Gait Belt Front Wheeled Walker Comments Mobility Comments Pt increased time to roll to the right and needing CGA to come to sitting. CGA while up with FWW for balance and keep FWW close. Pt also needing assist for IV pole management. OT- Balance Assessment Sitting Balance and Reactions Static Sitting Balance Ability Good Dynamic Sitting Balance Ability Fair Standing Balance and Reactions Static Standing Balance Ability Fair Dynamic Standing Balance Ability Poor M8 OT- IP Objective Assessments Start: 06/03/18 12:04 Freq: Status: Active Protocol: Document 06/05/18 11:10 [facility] (Rec: 06/05/18 11:41 [facility] [id number]) OT Gross Range of Motion Upper Extremity Range of Motion ROM Impairments RUE 0-110, LUE 0-90 shoulder flexion OT Strength Comments Strength Comments BUE strength 4-/5 to 4/5 M9 OT- IP Assessment and Plan Start: 06/03/18 12:04 Freq: Status: Active Protocol: Document 06/05/18 11:10 [facility] (Rec: 06/05/18 11:41 [facility] [id number]) OT Summary Assessment and Plan Potential Rehabilitation Potential Good Analytic Complexity at Evaluation Moderate Summary OT Impairments Range of Motion Strength Balance Coordination Functional Cognition Functional Mobility Self-Feeding Grooming Dressing Toileting Bathing Toilet Transfers Shower Transfers Progress Towards Goals Slow Progress due to Medical Issues Slow Progress due to Activity Tolerance Slow Progress due to Cognition Assessment Summary Pt mod complexity and main barriers are steps, decreased functional cognition, endurance and activity tolerance and now needing assist for all ADl and functional mobility needs. Pt will benefit from skilled rehab . Goals Grooming Goal Standby Assistance Dressing Goal Minimal Assistance Toileting Goal Contact Guard Assistance Bathing Goal Minimal Assistance Toilet Transfer Goal Standby Assistance Shower Transfer Goal Contact Guard Assistance Patient/Caregiver Education Goal Caregiver Independent Assisting Patient Days to Meet Goals 7 Frequency of Treatment Frequency Of Treatment Once a Day Treatment Plan OT Treatment Plan ADL Training Functional Cognition Training Functional Mobility Patient/Family Education Discharge Planning Other Treatment Recommendations and Next Standing at the sink for Treatment Focus grooming needs. Discharge Recommendations OT Discharge Recommendations SNF Rehab
--- NOTE | 2018-06-05 16:10 | CM.DPC ---
DCP/Continued: Reviewed chart. No plan to discharge today. Met briefly with patient and spouse today re: plan. Patient and spouse agreeable to short SNF stay. Encouraged spouse to tour. Spouse toured [facility] today and would like to look at additional facilities prior to committing to [facility]. He plans to tour the following: [facility] [place], [facility], and [facility] within the next 24hrs. Spouse has [employer] number to call when facility choice identified. Encouraged spouse to have a first and second choice. P: Anticipate SNF when medically stable. Facility choice has not been determined. Spouse touring and investigating facilities today and tomorrow. ANGEL Clement
[2018-06-05] MEDS: LATANOPROST 0.005% OPHTH 2.5 ML 1 DROPS EYE-BOTH (21:24)
[2018-06-05] MEDS: ACETAMINOPHEN 325 MG TABLET 650 MG PO (23:54)
[2018-06-06] VITALS (8 sets, daily range): BP systolic 113–142; BP diastolic 59–87; PULSE 77–110; RESP 15–22; TEMP 36.9–37.9; O2SAT 95–100
--- NOTE | 2018-06-06 00:14 | PC.NURSE ---
Addendum entered by Jory Severino R.N. 06/06/18 06:33: Correction to previous documentation: patient has ileostomy and has had 400cc liquid yellow stool emptied this shift. Incontinent of urine this morning due to urgency and not being able to get to [facility] in time. Denies pain at present. Original Note: Patient is mostly alert and oriented. Did not know age, day of week and was hesitant on why she is in the hospital. Breath sounds still with fine inspiratory crackles in right LL; RA sat 99%. HRR but tachy at 115 when up to BSC and telemetry reading of ST. Denies nausea. BT present and colostomy with yellow loose stool noted. Dressing to medial side of colostomy is CDI. Turns self in bed but needs 1 assist + walker to get up to BSC as is weak. Complains of 3/10 left shoulder pain; medicated with Tylenol. Wearing bilateral VIVI stockings. Fall risk score is high and bed alarm is activated.
[2018-06-06] MEDS: SODIUM CHLORIDE 0.9% 1,000 ML 100 ML IV (03:58)
[2018-06-06 06:01] LABS: Add Manual Diff / Slide Review NO; Basophils Percent Auto 0.1 % (0-2); Eosinophils Percent Auto 0.9 % (2-4); Hematocrit 33.3 % (36-46); Hemoglobin 11.1 g/dL (12.0-16.0); Lymphocytes Percent Auto 42.3 % (25-40); Mean Corpuscular HGB Conc 33.2 % (30-36); Mean Corpuscular Hemoglobin 29.3 PG (26-34); Mean Corpuscular Volume 88.3 fL (80-100); Monocytes Percent Auto 3.8 % (3-14); Neutrophils Absolute Auto 12500 /uL (1500-7000); Neutrophils Percent Auto 52.9 % (50-75); Platelet Count 166 X10^3/uL (150-400); Red Blood Cell Count 3.78 X10^6/uL (4.0-5.2); Red Cell Distribution Width 13.9 % (11.6-14.8); White Blood Cell Count 23.6 X10^3/uL (4.5-11.0)
[2018-06-06 06:03] LABS: Alanine Aminotransferase 25 IU/L (9-52); Albumin 2.7 g/dL (3.5-5.0); Albumin Globulin Ratio 0.9 (1.0-2.8); Alkaline Phosphatase 96 U/L (38-126); Aspartate Aminotransferase 19 IU/L (14-36); BUN Creatinine Ratio 26.7 (6-22); Bilirubin Total 0.4 mg/dL (0.2-1.3); Blood Urea Nitrogen 16 mg/dL (7-17); Calcium 8.4 mg/dL (8.4-10.2); Carbon Dioxide 20 mmol/L (22-32); Chloride 114 mmol/L (98-107); Estimated Glomerular Filt Rate > 60.0 mL/min (>60); Globulin 2.9 g/dL (1.7-4.1); Glucose 136 mg/dL (80-110); HEMOLYSIS < 15 (0-50); Magnesium 1.5 mg/dL (1.6-2.3); Phosphorous 1.2 mg/dL (2.8-4.1); Potassium 3.3 mmol/L (3.4-5.1); Sodium 143 mmol/L (137-145); Total Protein 5.6 g/dL (6.3-8.2)
[2018-06-06] MEDS: PANTOPRAZOLE 20 MG TABLET PO (06:14)
[2018-06-06] MEDS: SODIUM,POTASSIUM PHOSPHATES PACKET 2 EACH PO (09:07)
[2018-06-06] MEDS: HEPARIN 5,000 UNIT/ML VIAL 5000 UNIT SUBCUT ×2 (09:08→21:07)
[2018-06-06] MEDS: MEGESTROL SUSP 400 MG/10 ML UDC PO ×2 (09:08→21:08)
[2018-06-06] MEDS: MULTIVITAMIN 1 TABLET 1 TAB PO (09:08)
[2018-06-06] MEDS: ASPIRIN EC 81 MG TABLET PO (09:08)
--- NOTE | 2018-06-06 10:01 | ST.IPTN ---
HAND SILVERING SUPERVISOR Treatment Note HAND SILVERING SUPERVISOR Treatment Note Start: 06/06/18 09:49 Freq: Status: Active Protocol: Document 06/06/18 09:49 [facility] (Rec: 06/06/18 10:01 [facility] [id number]) Speech Pathology Treatment Note Session Time Visit Start Time 09:10 Visit Stop Time 09:40 Total Visit Minutes 30 Visit Information Visit Number 2 Setting Treatment Setting Acute Care Visit Type Note Type Treatment Note Next Note Type Next Note Type Treatment Note Subjective Identification Type Name Observations/Patient Presentation Maria Dolores was sitting up in bed following medication administration from nurse. Chief Complaint(s) Cognitive Objective Short Term Goals Patient will answer orientation questions with 100 % accuracy with assistance of external memory aids. Patient will correctly tell time with 100% accuracy in order to improve orientation skills. Treatment Activities Maria Dolores was seen for swallow evaluation yesterday and was not observed to display signs of oral or pharyngeal dysphagia. OT completed SLUMs yesterday and patient scored 12/30 indicating below average cognitive function. Patient was oriented to place and self , but not to day, date or year . HAND SILVERING SUPERVISOR provided education on use of external memory aids to assist in re-orientation including use of white board in room and smart phone, once the battery is charged. Patient was oriented to use of the call-light. Patient needed mod verbal cues to tell time on clock in room. After I reminded patient how to tell time, she completed time- telling activity with ~60% accuracy. She had most difficulty with mixing up hour and minute hands. Patient participated in therapy tasks, but when asked if she wanted to continue with therapy she quickly replied no and stated there's only so much time in the day. She then requested assistance with brushing her teeth. Therapy was discontinued. Assessment Patient Response to Treatment Fair Rehab Potential Good Impairments Identified Cognitive-Linguistic Skills Memory - Short Term Memory - Working Problem Solving Progress Towards Goals Good Progress Assessment of Overall Progress Improving Assessment of Improvement Maria Dolores was responsive to cognitive therapy, but appears to have somewhat limited insight into deficits. She admits to being confused about certain things, but was quick to end cognitive therapy tasks. Reviewed with Patient Goals Patient/Caregiver Understanding Good Plan Therapy Recommendations Continue with Current Program
--- NOTE | 2018-06-06 10:02 | PT.IPTN ---
Current Diagnoses Acute kidney failure, unspecified (06/02/18) Physical Therapy Treatment Note M2 PT-IP Current Condition Start: 06/03/18 16:22 Freq: NEEDED Status: Active Protocol: Document 06/04/18 09:39 (Rec: 06/04/18 12:27 [id number]) Physical Therapy Current Condition Current Condition Evaluation Date 06/04/18 Treatment Diagnosis Acute on chronic renal failure ; generalized weakness. Onset Date 06/02/18 Precautions Abdominal Surgery Precautions Log Roll Lifting Restrictions Gait Belt above Incisional Area Other Precautions colostomy incision still healing. PT recommended to continue with abdominal precautions. M3 PT-IP Subjective Start: 06/03/18 16:22 Freq: NEEDED Status: Active Protocol: Document 06/06/18 09:58 [facility] (Rec: 06/06/18 10:02 [facility] [id number]) Subjective Physical Therapy Visit Type Type Patient Refusal Notes Pt refused stated she was too tired. Will check back with pt later today.
[2018-06-06] MEDS: CEFEPIME 1 GM in SODIUM CHLORIDE 0.9% 100 ML 200 ML IV ×2 (11:13→22:10)
--- NOTE | 2018-06-06 14:33 | PT.IPTN ---
Current Diagnoses Acute kidney failure, unspecified (06/02/18) Physical Therapy Treatment Note M2 PT-IP Current Condition Start: 06/03/18 16:22 Freq: NEEDED Status: Active Protocol: Document 06/04/18 09:39 (Rec: 06/04/18 12:27 [id number]) Physical Therapy Current Condition Current Condition Evaluation Date 06/04/18 Treatment Diagnosis Acute on chronic renal failure ; generalized weakness. Onset Date 06/02/18 Precautions Abdominal Surgery Precautions Log Roll Lifting Restrictions Gait Belt above Incisional Area Other Precautions colostomy incision still healing. PT recommended to continue with abdominal precautions. M3 PT-IP Subjective Start: 06/03/18 16:22 Freq: NEEDED Status: Active Protocol: Document 06/06/18 14:32 [facility] (Rec: 06/06/18 14:33 [facility] [id number]) Subjective Physical Therapy Visit Type Type Patient Refusal Notes Pt refused states she is to tired, but will work with PT tomorrow. Amount of Assist Needed 1 Person Assist Discharge Recommendations PT Discharge Recommendations Home with 24/7 Assist Home Health SNF Rehab Equipment Needed for Home Before fww depending on pt status at Discharge d/c
--- NOTE | 2018-06-06 14:46 | OT.IP.TRT ---
Current Diagnoses Acute kidney failure, unspecified (06/02/18) Occupational Therapy Treatment Note M2 OT-IP Current Condition Start: 06/03/18 12:04 Freq: Status: Active Protocol: Document 06/05/18 11:10 [facility] (Rec: 06/05/18 11:41 [facility] [id number]) Occupational Therapy Current Condition Current Condition Evaluation Date 06/05/18 Treatment Diagnosis weakness Diagnosis Onset Date 06/02/18 Post Operative Precautions Abdominal Surgery Precautions Log Roll Lifting Restrictions Gait Belt above Incisional Area Other Precautions colostomy incision still healing. PT recommended to continue with abdominal precautions. M3 OT- IP Subjective and Pain Start: 06/03/18 12:04 Freq: Status: Active Protocol: Document 06/06/18 14:45 [facility] (Rec: 06/06/18 14:46 [facility] [id number]) OT- Subjective Occupational Therapy Visit Type Type Patient Refusal Notes Pt states too tired to work with OT afternoon, did request therapist to place pillow under her head. Therefore to check on pt again tomorrow.
--- NOTE | 2018-06-06 14:59 | PM.PN.1 ---
Subjective Date Patient Seen: 06/06/18 Time Patient Seen: 15:00 Interval history: spoke to spouse regarding case questions and concerns addressed at understanding feeling better but still with poor appetite no significant issues overnight Exam Vital Signs (past 8 hours): - 06/06/18 07:50 06/06/18 08:50 06/06/18 13:00 Temperature 98.4 F 99.3 F Pulse Rate 95 H 109 H Respiratory Rate 22 18 Blood Pressure 142/87 H 131/72 Pulse Oximetry 100 99 98 Oxygen Delivery Method Room Air Oxygen Flow Rate 0 Narrative Exam Narrative: NO ACUTE DISTRESS. PATIENT IS ALERT ORIENTED X3. CACHECTIC ; MALNOURISHED VITAL SIGNS STABLE HEAD ATRAUMATIC NORMOCEPHALIC NECK : SUPPLE WITHOUT ADENOPATHY NO CAROTID BRUITS EYE: EOMI, PERRLA, NORMAL CONJUNCTIVA; NO JAUNDICE CHEST: REGULAR RATE. NO RUBS. PMI IS NON DISPLACED; NORMAL S1-S2 PULMONARY: DECREASED BS OVER THE BASES. MILD BIBASILAR CRACKLES NOTED; NO INCREASED DULLNESS TO PERCUSSION ABDOMEN: SOFT. NONTENDER. NONDISTENDED. BOWEL SOUNDS HYPOACTIVE. NO MASS. COLOSTOMY NOTED ; BOWEL MATERIALS NOTED IN BAG EXTREMITIES: NO EDEMA.. NO CYANOSIS CLUBBING NOTED. NEURO: CRANIAL NERVES 2-12 GROSSLY INTACT. NO FOCAL NEUROLOGICAL DEFICIT NOTED. MSK: NORMAL RANGE OF MOTION FOR AGE. NO JOINT EFFUSION. SKIN: NORMAL FOR ETHNICITY; NO ECCHYMOSIS. NO LESION. GOOD TURGOR.; NO RASHES : NORMAL EXTERNAL GENITALIA. PSYCH : APPROPRIATE MOOD AND AFFECT. ALERT AWAKE ORIENTED X3 Objective Labs Result Diagrams: 06/06/18 05:00 06/06/18 05:00 Labs: Laboratory Results - last 24 hr 06/03/18 06/03/18 06/04/18 04:52 08:00 05:11 WBC RBC Hgb Hct MCV MCH MCHC RDW Plt Count Neut % (Auto) Lymph % (Auto) [place] % (Auto) Eos % (Auto) Baso % (Auto) Neut # (Auto) Eosinophil Count 0 Sodium 136 L 143 Potassium 4.9 4.3 Chloride 110 H 113 H Carbon Dioxide 17 L 21 L BUN 46 H 27 H Creatinine 1.00 0.90 Estimated GFR 54.2 L > 60.0 BUN/Creatinine Ratio 46.0 H 30.0 H Glucose 111 H 96 Calcium 9.3 9.5 Phosphorus 3.6 2.7 L Magnesium Total Bilirubin 0.3 0.3 AST 32 25 ALT 36 32 Alkaline Phosphatase 95 90 Total Protein 6.4 6.4 Albumin 3.4 L 3.2 L Globulin 3.0 3.2 Albumin/Globulin Ratio 1.1 1.0 06/06/18 06/06/18 05:00 05:00 WBC 23.6 H RBC 3.78 L Hgb 11.1 L Hct 33.3 L MCV 88.3 MCH 29.3 MCHC 33.2 RDW 13.9 Plt Count 166 Neut % (Auto) 52.9 Lymph % (Auto) 42.3 H [place] % (Auto) 3.8 Eos % (Auto) 0.9 L Baso % (Auto) 0.1 Neut # (Auto) 18071 H Eosinophil Count Sodium 143 Potassium 3.3 L Chloride 114 H Carbon Dioxide 20 L BUN 16 Creatinine 0.60 Estimated GFR > 60.0 BUN/Creatinine Ratio 26.7 H Glucose 136 H Calcium 8.4 Phosphorus 1.2 L Magnesium 1.5 L Total Bilirubin 0.4 AST 19 ALT 25 Alkaline Phosphatase 96 Total Protein 5.6 L Albumin 2.7 L Globulin 2.9 Albumin/Globulin Ratio 0.9 L Assessment & Plan Plan: Assessment/Plan Narrative: IMPRESSION AND PLAN GENERALIZED WEAKNESS; MULTIFACTERIAL; PT/OT CONT TO PROVIDE THERAPY TO PT WHILE IN HOUSE; CONT TO AMBULATE TID; OOB/ IN CHAIR WITH EACH MEAL; FALL AND ASPIRATION PRECAUTIONS LEUKOCYTOSIS; IMPROVED OVER THE LAST 24 HRS ; DAILY CBC TO FOLLOW; THIS APPEARS TO HAVE A CHRONIC COMPONENT; SUSPECT POSS LEUKEMIA VS LYMPHOMA ; HOWEVER, INVOLVEMENT OF INFECTIOUS PROCESS IS A POSSIBILITY WELL; PYURIA NOTED ON UA; ABX CHANGED TO CEFEPIME FOR BETTER BROADER COVERAGE; DAILY LABS TO FOLLOW ; LATEST CX ARE NEG SO FAR. S/P SMALL BOWEL RESECTION WITH COLOSTOMY; WOUND / COLOSTOMY CARE INDICATED DAILY; ADDITIONAL MANAGEMENT INDICATED DEHYDRATION ; CONT TO IMPROVE; CONT CURRENT FLUID IV FOR NOW; ENCOURAGE ORAL INTAKES SEVERE PROTEIN DEF MALNUTRITION; WILL INCREASE MEGACE DOSE TODAY; DIETITIAN CONSULTED ; REG DIET; ENSURE WITH EACH MEAL; ENCOURAGE TO EAT MUSH POSSIBLE; AMBULATE TID ACUTE RENAL FAILURE; GFR AND CR BACK TO WNL ; CONT IVF X 24-48 HRS HOWEVER; DAILY LABS TO FOLLOW; AVOID NEPHROTOXIC MEDS; ADDITIONAL MANAGEMENT INDICATED CLINICALLY METABOLIC ACIDOSIS; REMAINS STABLE; CAUSE IS NOT CLEAR; WILL GET LACTATE ; TREAT INDICATED; IVF; DAILY LABS ; CONSIDER BICARB PILLS INDICATED COPD PER HX; NO S/S OF ACUTE EXACERBATION; PRN DUONEBS TREATMENT POSS CLL; DENIED DX; MONITOR CLOSELY WITH DAILY CBC WHILE IN HOUSE HTN PER HX; HOME MEDS; VS PER UNIT PROTOCOL PHYSICAL DECONDITIONING; WILL ORDER PT/OT; REFER TO SNF ON DISPOSITION POOR GAIT DUE TO PHYSICAL DECONDITIONING; REFER TO SNF ON DISPOSITION; FALL PRECAUTIONS HYPOPHOSPH; WILL REPLACE IV AND ORAL TODAY; LABS IN AM HYPOMAG; REPLACE IV TODAY ; LABS IN AM LIKELY DC TO SNF ONCE STABLE CLINICALLY IN NEXT 24- 48 HRS SPOKE TO SPOUSE REGARDING CASE Quality VTE Deep Vein Thrombosis/Pulmonary Embolism Present on Admission: No
--- NOTE | 2018-06-06 15:14 | CM.DPC ---
DCP/ Followed-up with patient: Spouse is still reviewing facilities and has not made a decision. Expects to have final decision by tomorrow. Plan: SNF. Need to follow up with family for preference and submit referral.
[2018-06-06] MEDS: MAGNESIUM SULFATE 2 GM/50 ML PIGGYBACK IV (15:32)
[2018-06-06] MEDS: POTASSIUM PHOSPHATE 15 MMOL in DEXTROSE 5% IN WATER 250 ML 63.75 ML IV (17:58)
[2018-06-06 18:03] LABS: Lactate (Lactic Acid) 1.5 mmol/L (0.7-2.1)
--- NOTE | 2018-06-06 19:32 | PC.NURSE ---
PATIENT IS UNDER SEVERAL WARM BLANKETS,ROOM IS HOT. ROOM TEMP DECREASED,BLANKET REMOVED,PATIENT DOES NOT WANT TO GIVE UP WARM BLANKETS.
[2018-06-06] MEDS: LATANOPROST 0.005% OPHTH 2.5 ML 1 DROPS EYE-BOTH (21:08)
[2018-06-06] MEDS: SODIUM CHLORIDE 0.9% 1,000 ML 80 ML IV (22:39)
[2018-06-06] MEDS: ACETAMINOPHEN 325 MG TABLET 650 MG PO (23:51)
[2018-06-07] VITALS (10 sets, daily range): BP systolic 111–126; BP diastolic 72–85; PULSE 91–103; RESP 16–22; TEMP 36.6–37.8; O2SAT 98–99
--- NOTE | 2018-06-07 | DI.RAD.S_ITS ---
PROCEDURE: XR CHEST 1V INDICATIONS: cough TECHNIQUE: One view of the chest was acquired. COMPARISON: [facility], CR, XR CHEST FOR PICC 1V, 03/24/2018, 10:26. FINDINGS: Surgical changes and devices: None. Lungs and pleura: Coarsely increased interstitial lung markings are noted bilaterally with ill-defined air space opacity seen in right upper and midlung field. Trace amount of fluid within right minor fissure is also likely present. No pneumothorax. Mediastinum: Mediastinal contours appear normal. Heart size is normal. Bones and chest wall: No suspicious bony lesions. Overlying soft tissues appear unremarkable. IMPRESSION: Coarsely increased interstitial lung markings suggestive of interstitial lung parenchymal disease and possible superimposed pneumonitis. Suspicious for patchy air space opacities in right upper lobe with a trace amount of fluid in right minor fissure. Dictated by: Amandeep Burgess M.D. on 06/08/2018 at 11:03 Approved by: Amandeep Burgess M.D. on 06/08/2018 at 11:06
--- NOTE | 2018-06-07 00:14 | PC.NURSE ---
Addendum entered by Jory Severino R.N. 06/07/18 05:55: Slept most of shift. Denies any further complaints of pain. Up to BSC with walker and SBA Original Note: Patient is alert and mostly oriented; not sure of date/day of week. Breath sounds with increased crackles now in both bases and right middle lobe. Denies SOB or cough and RA sat is 99%. HRR but tachy at 105 bpm; telemetry is showing ST. Denies nausea. BT present and ostomy with yellow liquid stool in bag. Dressing to left of ostomy bag is CDI. Urinary urgency but no dysuria so gets up to BSC to void but is also sometimes incontinent. Able to turn self in bed. Assisted to BSC with walker and 1 assist due to weakness. Complains of 3/10 neck pain and has low grade temp of 99.8 so medicated with Tylenol. Wearing bilateral VIVI stockings. Fall risk score is high and bed alarm is activated.
[2018-06-07] MEDS: PANTOPRAZOLE 20 MG TABLET PO (05:48)
[2018-06-07 05:59] LABS: Alanine Aminotransferase 20 IU/L (9-52); Albumin 2.7 g/dL (3.5-5.0); Albumin Globulin Ratio 0.9 (1.0-2.8); Alkaline Phosphatase 119 U/L (38-126); Aspartate Aminotransferase 15 IU/L (14-36); BUN Creatinine Ratio 33.3 (6-22); Bilirubin Total 0.4 mg/dL (0.2-1.3); Blood Urea Nitrogen 20 mg/dL (7-17); Calcium 7.9 mg/dL (8.4-10.2); Carbon Dioxide 23 mmol/L (22-32); Chloride 110 mmol/L (98-107); Estimated Glomerular Filt Rate > 60.0 mL/min (>60); Glucose 79 mg/dL (80-110); HEMOLYSIS < 15 (0-50); Phosphorous 1.6 mg/dL (2.8-4.1); Potassium 3.3 mmol/L (3.4-5.1); Sodium 144 mmol/L (137-145); Total Protein 5.7 g/dL (6.3-8.2)
[2018-06-07 06:02] LABS: Add Manual Diff / Slide Review NO; Basophils Percent Auto 0.1 % (0-2); Eosinophils Percent Auto 0.9 % (2-4); Hematocrit 33.6 % (36-46); Hemoglobin 11.3 g/dL (12.0-16.0); Lymphocytes Percent Auto 45.3 % (25-40); Mean Corpuscular HGB Conc 33.6 % (30-36); Mean Corpuscular Hemoglobin 29.4 PG (26-34); Mean Corpuscular Volume 87.4 fL (80-100); Monocytes Percent Auto 4.6 % (3-14); Neutrophils Absolute Auto 12100 /uL (1500-7000); Neutrophils Percent Auto 49.1 % (50-75); Platelet Count 177 X10^3/uL (150-400); Red Blood Cell Count 3.85 X10^6/uL (4.0-5.2); White Blood Cell Count 24.8 X10^3/uL (4.5-11.0)
[2018-06-07] MEDS: KCL 20 MEQ IN NS 1,000 ML 70 MEQ IV (10:35)
[2018-06-07] MEDS: CEFEPIME 1 GM in SODIUM CHLORIDE 0.9% 100 ML 200 ML IV ×2 (10:38→21:26)
[2018-06-07] MEDS: ASPIRIN EC 81 MG TABLET PO (10:39)
[2018-06-07] MEDS: MULTIVITAMIN 1 TABLET 1 TAB PO (10:39)
[2018-06-07] MEDS: MEGESTROL SUSP 400 MG/10 ML UDC PO ×2 (10:39→20:44)
[2018-06-07] MEDS: POTASSIUM CHLORIDE 20 MEQ TAB 40 MEQ PO (10:40)
[2018-06-07] MEDS: SODIUM,POTASSIUM PHOSPHATES PACKET 2 EACH PO (10:40)
[2018-06-07] MEDS: HEPARIN 5,000 UNIT/ML VIAL 5000 UNIT SUBCUT ×2 (10:41→20:32)
[2018-06-07] MEDS: DOXYCYCLINE 100 MG in SODIUM CHLORIDE 0.9% 100 ML IV ×2 (11:28→23:00)
--- NOTE | 2018-06-07 11:44 | PM.PN.1 ---
Subjective Date Patient Seen: 06/07/18 Time Patient Seen: 11:45 Interval history: SPOKE TO PATIENT EXTENSIVELY REGARDING CASE DENIED ANY CHILLS OVERNIGHT NO SOB; MILF COUGH; NO SIGNIFICANT ISSUE OVERNIGHT Exam Vital Signs (past 8 hours): - 06/07/18 05:35 06/07/18 08:30 Temperature 99.9 F H 98.7 F Pulse Rate 93 H 91 H Respiratory Rate 16 20 Blood Pressure 111/74 115/72 Pulse Oximetry 99 99 Oxygen Delivery Method Room Air Oxygen Flow Rate 0 Narrative Exam Narrative: NO ACUTE DISTRESS. PATIENT IS ALERT ORIENTED X3. CACHECTIC ; MALNOURISHED VITAL SIGNS STABLE HEAD ATRAUMATIC NORMOCEPHALIC NECK : SUPPLE WITHOUT ADENOPATHY NO CAROTID BRUITS EYE: EOMI, PERRLA, NORMAL CONJUNCTIVA; NO JAUNDICE CHEST: REGULAR RATE. NO RUBS. PMI IS NON DISPLACED; NORMAL S1-S2 PULMONARY: DECREASED BS OVER THE BASES. MILD BIBASILAR CRACKLES NOTED; NO INCREASED DULLNESS TO PERCUSSION ABDOMEN: SOFT. NONTENDER. NONDISTENDED. BOWEL SOUNDS HYPOACTIVE. NO MASS. COLOSTOMY NOTED ; BOWEL MATERIALS NOTED IN BAG EXTREMITIES: NO EDEMA.. NO CYANOSIS CLUBBING NOTED. NEURO: CRANIAL NERVES 2-12 GROSSLY INTACT. NO FOCAL NEUROLOGICAL DEFICIT NOTED. MSK: NORMAL RANGE OF MOTION FOR AGE. NO JOINT EFFUSION. SKIN: NORMAL FOR ETHNICITY; NO ECCHYMOSIS. NO LESION. GOOD TURGOR.; NO RASHES : NORMAL EXTERNAL GENITALIA. PSYCH : APPROPRIATE MOOD AND AFFECT. ALERT AWAKE ORIENTED X3 Objective Labs Result Diagrams: 06/07/18 05:15 06/07/18 05:15 Labs: Laboratory Results - last 24 hr 06/06/18 06/07/18 06/07/18 17:36 05:15 05:15 WBC 24.8 H RBC 3.85 L Hgb 11.3 L Hct 33.6 L MCV 87.4 MCH 29.4 MCHC 33.6 RDW 14.0 Plt Count 177 Neut % (Auto) 49.1 L Lymph % (Auto) 45.3 H [place] % (Auto) 4.6 Eos % (Auto) 0.9 L Baso % (Auto) 0.1 Neut # (Auto) 97630 H Sodium 144 Potassium 3.3 L Chloride 110 H Carbon Dioxide 23 BUN 20 H Creatinine 0.60 Estimated GFR > 60.0 BUN/Creatinine Ratio 33.3 H Glucose 79 L Lactate 1.5 Calcium 7.9 L Phosphorus 1.6 L Total Bilirubin 0.4 AST 15 ALT 20 Alkaline Phosphatase 119 Total Protein 5.7 L Albumin 2.7 L Globulin 3.0 Albumin/Globulin Ratio 0.9 L Assessment & Plan Plan: Assessment/Plan Narrative: IMPRESSION AND PLAN GENERALIZED WEAKNESS; MULTIFACTERIAL; PT/OT CONT TO PROVIDE THERAPY TO PT WHILE IN HOUSE; CONT TO AMBULATE TID; OOB/ IN CHAIR WITH EACH MEAL; FALL AND ASPIRATION PRECAUTIONS LEUKOCYTOSIS; ONCE AGAIN INC OVER THE LAST 24 HRS ; DAILY CBC TO FOLLOW; THIS APPEARS TO HAVE A CHRONIC COMPONENT; SUSPECT POSS LEUKEMIA VS LYMPHOMA ; HOWEVER, INVOLVEMENT OF INFECTIOUS PROCESS IS A POSSIBILITY WELL; REAPEAT LABS TODAY WITH UA ORDERED; CONT CURRNET ABX; DOXY ADDED; DAILY LABS TO FOLLOW; RECX URINE AND BLOOD TODAY; WILL SEND FOR C DIFF(ALTHOUGHT THIS IS RARE ) WELL OVA AND PARASITES S/P SMALL BOWEL RESECTION WITH COLOSTOMY; WOUND / COLOSTOMY CARE INDICATED DAILY; ADDITIONAL MANAGEMENT INDICATED DEHYDRATION; CONT CURRENT FLUID IV FOR NOW; ENCOURAGE ORAL INTAKES SEVERE PROTEIN DEF MALNUTRITION; WILL INCREASE MEGACE DOSE TODAY; DIETITIAN CONSULTED ; REG DIET; ENSURE WITH EACH MEAL; ENCOURAGE TO EAT MUSH POSSIBLE; AMBULATE TID ACUTE RENAL FAILURE; GFR AND CR BACK TO WNL ; CONT IVF X 24-48 HRS HOWEVER; DAILY LABS TO FOLLOW; AVOID NEPHROTOXIC MEDS; ADDITIONAL MANAGEMENT INDICATED CLINICALLY METABOLIC ACIDOSIS; REMAINS STABLE; CAUSE IS NOT CLEAR; WILL GET LACTATE ; TREAT INDICATED; IVF; DAILY LABS ; CONSIDER BICARB PILLS INDICATED COPD PER HX; NO S/S OF ACUTE EXACERBATION; PRN DUONEBS TREATMENT POSS CLL; DENIED DX; MONITOR CLOSELY WITH DAILY CBC WHILE IN HOUSE HTN PER HX; HOME MEDS; VS PER UNIT PROTOCOL PHYSICAL DECONDITIONING; WILL ORDER PT/OT; REFER TO SNF ON DISPOSITION POOR GAIT DUE TO PHYSICAL DECONDITIONING; REFER TO SNF ON DISPOSITION; FALL PRECAUTIONS HYPOPHOSPH; WILL REPLACE IV AND ORAL TODAY; LABS IN AM HYPOMAG; REPLACE IV TODAY ; LABS IN AM DC PER CLINICAL COURSE TO SNF Quality VTE Deep Vein Thrombosis/Pulmonary Embolism Present on Admission: No
[2018-06-07] MEDS: FLUCONAZOLE 400 MG/200 ML PIGGYBACK 100 MG IV (12:44)
--- NOTE | 2018-06-07 13:13 | CM.DPC ---
DCP Cont: Per MD, pt not medically stable for discharge yet and working pt up for further chest xray and cultures to determine cause for why pt's levels are high. OSKAR met with pt's spouse who confirms that they still are not interested in [facility] at d/c but that he toured [facility] in [place] and plans to tour both [facility] and [facility] today towards identifying their first SNF preference for discharge. SW completed PASRR for SNF placement at d/c. Plan: OSKAR to follow with pt's spouse tomorrow regarding his tour of [facility]'s towards determining SNF preference for d/c. ANGEL Bernardo
--- NOTE | 2018-06-07 14:20 | PT.IPTN ---
Current Diagnoses Acute kidney failure, unspecified (06/02/18) Physical Therapy Treatment Note M2 PT-IP Current Condition Start: 06/03/18 16:22 Freq: NEEDED Status: Active Protocol: Document 06/04/18 09:39 (Rec: 06/04/18 12:27 [email or web address]) Physical Therapy Current Condition Current Condition Evaluation Date 06/04/18 Treatment Diagnosis Acute on chronic renal failure ; generalized weakness. Onset Date 06/02/18 Precautions Abdominal Surgery Precautions Log Roll Lifting Restrictions Gait Belt above Incisional Area Other Precautions colostomy incision still healing. PT recommended to continue with abdominal precautions. M3 PT-IP Subjective Start: 06/03/18 16:22 Freq: NEEDED Status: Active Protocol: Document 06/07/18 14:20 GGD (Rec: 06/07/18 16:21 GGD [email or web address]) Subjective Physical Therapy Visit Type Type Treatment Note Visit Start Time 13:55 Visit Stop Time 14:20 Total Visit Minutes 25 Number of CLERICAL GRADER Visits 1 Physical Therapy Visit Comments Patient Comments Pt needs to use the bathroom. M4 PT-IP Mobility and Gait Start: 06/03/18 16:22 Freq: NEEDED Status: Active Protocol: Document 06/07/18 14:20 GGD (Rec: 06/07/18 16:21 GGD [email or web address]) PT-Bed Mobility Assessment Supine to Sit Supine to Sit Contact Guard Assistance Head of Bed Elevated Sit to Supine Sit to Supine Contact Guard Assistance 1 Person Assistance Scooting Scooting to Edge of Bed Standby Assistance PT-Transfer Assessment Sit to and From Stand Sit to and from Stand Contact Guard Assistance Minimal Assistance Use of Upper Extremities Equipment Transfer Assistive Device Gait Belt Front Wheeled Walker Orthotic/Prosthetic Devices or Brace: No Transfers Transfer Destination Toilet Car Transfer Ability Level of Assist Contact Guard Assistance Use of Upper Extremities Gait Assessment Gait Gait Assistance Required: Contact Guard Assist Distance (Feet) 40 Able to Maintain Weight Bearing Status Yes During Gait Assistive Devices Assistive Device Gait Belt Front Wheeled Walker Orthotic/Prosthetic Devices or Brace: No Gait Deviations General Gait Pattern Decreased Stride Length Decreased Feet Clearance Flexed Trunk Factors Limiting Gait Function Factors Limiting Gait Function Decreased Activity Tolerance Decreased Strength Poor Balance M5 PT-IP Objective Assessments Start: 06/03/18 16:22 Freq: NEEDED Status: Active Protocol: Document 06/04/18 09:39 (Rec: 06/04/18 12:27 [email or web address]) Orientation Orientation/Cognition Level of Alertness Alert Orientation Name Birthday Language Function Ability No Deficits Noted Safety Awareness Decreased Safety Awareness Comments Pt needs increased time for responses, but able to respond appropriately and follow directions. Gross Range of Motion Lower Extremity ROM Assessment Within Functional Limits Strength Lower Extremity Strength Assessment Bilaterally Impaired Hip B hips 3+/5 Knee B knees 4-/5 Ankle B ankles 4/5 M6 PT-IP Treatment Start: 06/03/18 16:22 Freq: NEEDED Status: Active Protocol: Document 06/04/18 09:39 (Rec: 06/04/18 12:27 [email or web address]) Physical Therapy Treatment Exercises Exercises Ankle Pumps Quad Sets Education Education Provided Precautions Safety Other Treatments Other Treatment Performed Pt advised to continue with abdominal precautions. Pt instructed in seated marching, quad sets and ankle pumps for general strengthening and endurance. M7 PT-IP Assessment and Plan Start: 06/03/18 16:22 Freq: NEEDED Status: Active Protocol: Document 06/07/18 14:20 GGD (Rec: 06/07/18 16:21 GGD [email or web address]) PT Summary Assessment and Plan Summary Assessment Summary Pt improving slowly with mobility. She needed less assistance with bed mobility. She did need assist for controlled sit on to the toilet. Frequency of Treatment Frequency Of Treatment Once a Day Treatment Plan Physical Therapy Treatment Plan Bed Mobility Training Transfer Training Gait Training Therapeutic Exercise Balance Retraining Discharge Planning Hot or Cold Pack Neuromuscular Re-ed Coordination Retraining Manual Therapy Other Recommendations and Next Treatment Ambulation. General Focus strengthening and endurance. Progress quad sets and seated marching. Recommendations To Nursing Amount of Assist Needed 1 Person Assist Discharge Recommendations PT Discharge Recommendations Home with 24/7 Assist Home Health SNF Rehab Equipment Needed for Home Before fww depending on pt status at Discharge d/c
--- NOTE | 2018-06-07 16:28 | OT.IP.TRT ---
Current Diagnoses Acute kidney failure, unspecified (06/02/18) Occupational Therapy Treatment Note M2 OT-IP Current Condition Start: 06/03/18 12:04 Freq: Status: Active Protocol: Document 06/05/18 11:10 [facility] (Rec: 06/05/18 11:41 [facility] [id number]) Occupational Therapy Current Condition Current Condition Evaluation Date 06/05/18 Treatment Diagnosis weakness Diagnosis Onset Date 06/02/18 Post Operative Precautions Abdominal Surgery Precautions Log Roll Lifting Restrictions Gait Belt above Incisional Area Other Precautions colostomy incision still healing. PT recommended to continue with abdominal precautions. M3 OT- IP Subjective and Pain Start: 06/03/18 12:04 Freq: Status: Active Protocol: Document 06/07/18 16:27 [facility] (Rec: 06/07/18 16:28 [facility] [id number]) OT- Subjective Occupational Therapy Visit Type Type Administrative Note Notes Pt able to work with DRILLING FOREMAN for mobility needs today and with nursing for ADL's, OT unable to see pt today.
--- NOTE | 2018-06-07 16:36 | PC.NURSE ---
Day Shift- Pt A&OX3, able to make needs known using call light. Disoriented to day and year. Ostomy output approx 550mls for shift, stool sample sent to lab. Need Urine sample still, evening Rn/ELECTRONIC WIRER aware. Pt denied pain, states usually takes prn Tylenol at night for neck pain. OOB to BSC with SBA, states feeling weak. Spoke with pt's this afternoon, states he is still touring [facility], in [facility]. Spoke with Dr. Crowder to confirm that it's okay to infusing IV medication one after the other, no need to start a 2nd PIV line at this time. See MAR for administration.
[2018-06-07] MEDS: POTASSIUM PHOSPHATE 15 MMOL in DEXTROSE 5% IN WATER 250 ML 63.75 ML IV (16:43)
[2018-06-07] MEDS: LATANOPROST 0.005% OPHTH 2.5 ML 1 DROPS EYE-BOTH (20:32)
--- NOTE | 2018-06-07 21:47 | PC.NURSE ---
1500- assumed care of pt from outgoing shift. pt participated in bedside report. Pt uses call light. pt doesn't like to bother staff but encouraged to call when needing assistance. 1700- pt drank her juice and some of the ensure. Pt stated she wasn't very hungry. Pt was incontinent bc she didn't want to bother staff and changed her brief. pt stood at bedside. brief and pad changed. pt sat back down. colostomy emptied. Pt tolerated activity well. Pt likes to move slowly and does get a little overwhelmed at times with everything that is going on. pt compliant with med passes. uses call light after encouragement. belongings and call light within reach. will continue to monitor.
[2018-06-08] VITALS (7 sets, daily range): BP systolic 116–131; BP diastolic 69–81; PULSE 84–92; RESP 16–19; TEMP 36.4–37.1; O2SAT 98–99
--- NOTE | 2018-06-08 01:33 | PC.NURSE ---
Addendum entered by Jory Severino R.N. 06/08/18 06:20: Stool for c-diff and clean catch UA sent at start of shift as ordered. Order for UA amended per verbal order from [facility] to be clean catch rather than cath specimen. C-diff was negative. Patient complains this morning that tongue is sore and looks slightly red. States she has had this symptom intermittently for several weeks. No difficulty talking or swallowing. No swelling noted. Original Note: Patient is oriented except for day of week/month. Breath sounds with inspiratory crackles all right lobes but RA sat is 99%. HRR and was SR on recent telemetry reading. Denies nausea. BT hypoactive. Has ileostomy putting out yellow liquid stools. Dressing to left of ostomy appliance is CDI. Urinary urgency but denies dysuria so is sometimes incontinent of urine but also voids on BSC. Turns self but needs SBA + walker to BSC due to LE weakness. States she feels stronger but reportedly still has poor appetite. Had VIVI stockings on at shift change but requested to have them removed for the night. Denies any pain. Fall risk score is high and bed alarm is activated.
[2018-06-08 01:52] LABS: Appearance Urine UA CLEAR; Bilirubin Urine UA NEGATIVE (NEGATIVE); Color Urine UA YELLOW; Glucose Urine UA NEGATIVE (Normal); Ketones Urine UA NEGATIVE (NEGATIVE); Leukocyte Esterase Urine UA NEGATIVE (NEGATIVE); Nitrite Urine UA NEGATIVE (Negative); Occult Blood Urine UA NEGATIVE (Negative); Protein Urine UA TRACE (Negative); Specific Gravity Urine UA 1.025 (1.000-1.035); Urobilinogen Urine UA 0.2 E.U./dL (0.2)
[2018-06-08 02:12] LABS: Bacteria Urine Few (2-10); RBC Urine 0-1/HPF (0-5/HPF); Squamous Epithelial Cell Urine 1-5 /HPF; WBC Urine 0-1/HPF (0-5/HPF)
[2018-06-08 02:13] LABS: Mucus Urine 1+ (Negative)
[2018-06-08 02:14] LABS: Culture Indicated Urine Cult Not Indicated; Granular Casts Urine 0-1/LPF
[2018-06-08 03:02] LABS: Clostridium Difficile Tox PCR Negative for C. diff
[2018-06-08 05:54] LABS: Add Manual Diff / Slide Review NO; Eosinophils Percent Auto 1.3 % (2-4); Hemoglobin 10.8 g/dL (12.0-16.0); Lymphocytes Percent Auto 51.1 % (25-40); Mean Corpuscular HGB Conc 33.6 % (30-36); Mean Corpuscular Hemoglobin 29.4 PG (26-34); Mean Corpuscular Volume 87.3 fL (80-100); Monocytes Percent Auto 4.7 % (3-14); Neutrophils Absolute Auto 9800 /uL (1500-7000); Neutrophils Percent Auto 42.9 % (50-75); Platelet Count 184 X10^3/uL (150-400); Red Blood Cell Count 3.66 X10^6/uL (4.0-5.2); Red Cell Distribution Width 13.9 % (11.6-14.8); White Blood Cell Count 22.8 X10^3/uL (4.5-11.0)
[2018-06-08 06:06] LABS: Alanine Aminotransferase 18 IU/L (9-52); Albumin 2.6 g/dL (3.5-5.0); Albumin Globulin Ratio 0.9 (1.0-2.8); Alkaline Phosphatase 113 U/L (38-126); Aspartate Aminotransferase 14 IU/L (14-36); BUN Creatinine Ratio 23.3 (6-22); Bilirubin Total 0.6 mg/dL (0.2-1.3); Blood Urea Nitrogen 14 mg/dL (7-17); Calcium 8.1 mg/dL (8.4-10.2); Carbon Dioxide 22 mmol/L (22-32); Chloride 111 mmol/L (98-107); Estimated Glomerular Filt Rate > 60.0 mL/min (>60); Glucose 76 mg/dL (80-110); HEMOLYSIS < 15 (0-50); Phosphorous 2.5 mg/dL (2.8-4.1); Potassium 4.3 mmol/L (3.4-5.1); Sodium 141 mmol/L (137-145); Total Protein 5.6 g/dL (6.3-8.2)
[2018-06-08] MEDS: PANTOPRAZOLE 20 MG TABLET PO (06:07)
[2018-06-08] MEDS: KCL 20 MEQ IN NS 1,000 ML 70 MEQ IV (09:38)
[2018-06-08] MEDS: CEFEPIME 1 GM in SODIUM CHLORIDE 0.9% 100 ML 200 ML IV ×2 (09:41→19:35)
--- NOTE | 2018-06-08 10:24 | P.PN_ITS ---
Subjective Date Patient Seen: 06/08/18 Time Patient Seen: 07:00 Interval history: CONT TO REPORT FEELING BETTER FEVER REPORTED LAST NIGHT NO CP/SOB NO COUGH Exam Vital Signs (past 8 hours): - 06/08/18 05:15 06/08/18 07:50 Temperature 98.1 F 98.7 F Pulse Rate 92 H 90 Respiratory Rate 19 18 Blood Pressure 116/75 119/69 Pulse Oximetry 99 98 Oxygen Delivery Method Room Air Oxygen Flow Rate 0 Narrative Exam Narrative: NO ACUTE DISTRESS. PATIENT IS ALERT ORIENTED X3. CACHECTIC ; MALNOURISHED VITAL SIGNS STABLE HEAD ATRAUMATIC NORMOCEPHALIC NECK : SUPPLE WITHOUT ADENOPATHY NO CAROTID BRUITS EYE: EOMI, PERRLA, NORMAL CONJUNCTIVA; NO JAUNDICE CHEST: REGULAR RATE. NO RUBS. PMI IS NON DISPLACED; NORMAL S1-S2 PULMONARY: DECREASED BS OVER THE BASES. MILD BIBASILAR CRACKLES NOTED; NO INCREASED DULLNESS TO PERCUSSION ABDOMEN: SOFT. NONTENDER. NONDISTENDED. BOWEL SOUNDS HYPOACTIVE. NO MASS. COLOSTOMY NOTED ; BOWEL MATERIALS NOTED IN BAG EXTREMITIES: NO EDEMA.. NO CYANOSIS CLUBBING NOTED. NEURO: CRANIAL NERVES 2-12 GROSSLY INTACT. NO FOCAL NEUROLOGICAL DEFICIT NOTED. MSK: NORMAL RANGE OF MOTION FOR AGE. NO JOINT EFFUSION. SKIN: NORMAL FOR ETHNICITY; NO ECCHYMOSIS. NO LESION. GOOD TURGOR.; NO RASHES : NORMAL EXTERNAL GENITALIA. PSYCH : APPROPRIATE MOOD AND AFFECT. ALERT AWAKE ORIENTED X3 Objective Labs Result Diagrams: 06/08/18 05:18 06/08/18 05:18 Labs: Laboratory Results - last 24 hr 06/08/18 06/08/18 06/08/18 01:40 01:45 05:18 WBC 22.8 H RBC 3.66 L Hgb 10.8 L Hct 32.0 L MCV 87.3 MCH 29.4 MCHC 33.6 RDW 13.9 Plt Count 184 Neut % (Auto) 42.9 L Lymph % (Auto) 51.1 H [place] % (Auto) 4.7 Eos % (Auto) 1.3 L Baso % (Auto) 0.0 Neut # (Auto) 9800 H Sodium Potassium Chloride Carbon Dioxide BUN Creatinine Estimated GFR BUN/Creatinine Ratio Glucose Calcium Phosphorus Total Bilirubin AST ALT Alkaline Phosphatase Total Protein Albumin Globulin Albumin/Globulin Ratio Urine Color Yellow Urine Appearance Clear Urine pH 5.0 Ur Specific [place] 1.025 Urine Protein Trace H Urine Glucose (UA) Negative Urine Ketones Negative Urine Occult Blood Negative Urine Nitrate Negative Urine Bilirubin Negative Urine Urobilinogen 0.2 Ur Leukocyte Esterase Negative Urine RBC 0-1/hpf Urine WBC 0-1/hpf Ur Squamous Epith Cells 1-5 /hpf Urine Bacteria Few (2-10) H Granular Casts 0-1/lpf Urine Mucus 1+ H Ur Culture Indicated? Cult not indicated Micro UA Comment Not Reportable C. difficile Tox (PCR) Negative for c. diff 06/08/18 05:18 WBC RBC Hgb Hct MCV MCH MCHC RDW Plt Count Neut % (Auto) Lymph % (Auto) [place] % (Auto) Eos % (Auto) Baso % (Auto) Neut # (Auto) Sodium 141 Potassium 4.3 Chloride 111 H Carbon Dioxide 22 BUN 14 Creatinine 0.60 Estimated GFR > 60.0 BUN/Creatinine Ratio 23.3 H Glucose 76 L Calcium 8.1 L Phosphorus 2.5 L Total Bilirubin 0.6 AST 14 ALT 18 Alkaline Phosphatase 113 Total Protein 5.6 L Albumin 2.6 L Globulin 3.0 Albumin/Globulin Ratio 0.9 L Urine Color Urine Appearance Urine pH Ur Specific [place] Urine Protein Urine Glucose (UA) Urine Ketones Urine Occult Blood Urine Nitrate Urine Bilirubin Urine Urobilinogen Ur Leukocyte Esterase Urine RBC Urine WBC Ur Squamous Epith Cells Urine Bacteria Granular Casts Urine Mucus Ur Culture Indicated? Micro UA Comment C. difficile Tox (PCR) Assessment & Plan Plan: Assessment/Plan Narrative: IMPRESSION AND PLAN GENERALIZED WEAKNESS; MULTIFACTERIAL; PT/OT CONT TO PROVIDE THERAPY TO PT WHILE IN HOUSE; CONT TO AMBULATE TID; OOB/ IN CHAIR WITH EACH MEAL; FALL AND ASPIRATION PRECAUTIONS ; DC TO SNF PLANNED; POA TO ADVICE OF CHOICE OF SNF; STRATEGIC INTELLIGENCE OFFICER AWARE OF DC PLANNING LEUKOCYTOSIS; IMPROVED OVER THE LAST 24 HRS; CONT TO DAILY CBC TO FOLLOW; THIS APPEARS TO HAVE A CHRONIC COMPONENT; PATIENT DOES HAVE CLL A CONFIRMED DX ALTHOUGH SHE DID DENIED IT ON ADMISSION ; HOWEVER, INVOLVEMENT OF INFECTIOUS PROCESS IS A POSSIBILITY WELL; BACTERURIA NOTED IN UA; WAITING ON CXR READING ; ALL CX ARE NEG SO FAR; CONT CURRENT ABX FOR NOW; WILL DE-ESCALATE ABX THERAPY ONCE NO FEVER X 24 HRS. FEVER; CONT CURRENT ABX FOR NOW; FOLLOW CX S/P SMALL BOWEL RESECTION WITH COLOSTOMY; WOUND / COLOSTOMY CARE INDICATED DAILY; ADDITIONAL MANAGEMENT INDICATED DEHYDRATION; CONT CURRENT FLUID IV FOR NOW; ENCOURAGE ORAL INTAKES SEVERE PROTEIN DEF MALNUTRITION; WILL INCREASE MEGACE DOSE TODAY; DIETITIAN CONSULTED ; REG DIET; ENSURE WITH EACH MEAL; ENCOURAGE TO EAT MUSH POSSIBLE; AMBULATE TID ACUTE RENAL FAILURE; GFR AND CR BACK TO WNL ; CONT IVF X 24-48 HRS HOWEVER; DAILY LABS TO FOLLOW; AVOID NEPHROTOXIC MEDS; ADDITIONAL MANAGEMENT INDICATED CLINICALLY METABOLIC ACIDOSIS; RESOLVED COPD PER HX; NO S/S OF ACUTE EXACERBATION; PRN DUONEBS TREATMENT CLL; PT DENIED DX; HOWEVER OLD RECORDS FOUND AND DX WAS CONFIRMED; MONITOR CLOSELY WITH DAILY CBC WHILE IN HOUSE ELECTROLYTES IMBALANCE; REPLACE IV AND ORALLY TODAY; LABS IN AM TO FOLLOW HTN PER HX; HOME MEDS; VS PER UNIT PROTOCOL PHYSICAL DECONDITIONING; WILL ORDER PT/OT; REFER TO SNF ON DISPOSITION POOR GAIT DUE TO PHYSICAL DECONDITIONING; REFER TO SNF ON DISPOSITION; FALL PRECAUTIONS DC PER CLINICAL COURSE TO SNF AWAITING POA DECISION IN REGARD TO FACILITY OF CHOICE Quality VTE Deep Vein Thrombosis/Pulmonary Embolism Present on Admission: No
[2018-06-08] MEDS: MULTIVITAMIN 1 TABLET 1 TAB PO (11:06)
[2018-06-08] MEDS: DOXYCYCLINE 100 MG in SODIUM CHLORIDE 0.9% 100 ML IV ×2 (11:06→20:58)
[2018-06-08] MEDS: HEPARIN 5,000 UNIT/ML VIAL 5000 UNIT SUBCUT ×2 (11:06→20:58)
[2018-06-08] MEDS: ASPIRIN EC 81 MG TABLET PO (11:06)
[2018-06-08] MEDS: MEGESTROL SUSP 400 MG/10 ML UDC PO ×2 (11:06→20:59)
--- NOTE | 2018-06-08 14:30 | CM.DPC ---
DCP SNF Planning Per MD, pt seems to be stabilizing and may be ready for d/c tomorrow Saturday for SNF. SW met bedside with pt and spouse and explained role again and spouse confirmed that he toured most [facility]F's, some [facility] and [facility] SNF's and their preference is [facility] in [facility]. SW provided pt's spouse with pt's Medicare Rights and he acknowledged understanding and states that he feels pt moving to SNF rehab would be helpful in her motivation to strengthen and go home. Spouse signed pt's Medicare Message. SW discussed possible transport options to SNF and spouse states he would be agreeable with either transporting the pt himself or via w/c van pending how pt feels tomorrow. SW faxed pt clinicals to [facility] and called but no admissions person today and they do not have a voicemail but SW confirmed their fax number and [facility] staff requested SW call their admissions team in the morning. Plan: SW to follow in the morning with [facility] admissions to request review of already faxed clinicals for possible pt discharge tomorrow Saturday06/09/18. SW to follow up with PT and spouse to determine if transport is safe via spouse POV. PASRR complete. ANGEL Bernardo
--- NOTE | 2018-06-08 16:34 | PT.IPTN ---
Current Diagnoses Acute kidney failure, unspecified (06/02/18) Physical Therapy Treatment Note M2 PT-IP Current Condition Start: 06/03/18 16:22 Freq: NEEDED Status: Active Protocol: Document 06/04/18 09:39 (Rec: 06/04/18 12:27 [email or web address]) Physical Therapy Current Condition Current Condition Evaluation Date 06/04/18 Treatment Diagnosis Acute on chronic renal failure ; generalized weakness. Onset Date 06/02/18 Precautions Abdominal Surgery Precautions Log Roll Lifting Restrictions Gait Belt above Incisional Area Other Precautions colostomy incision still healing. PT recommended to continue with abdominal precautions. M3 PT-IP Subjective Start: 06/03/18 16:22 Freq: NEEDED Status: Active Protocol: Document 06/08/18 16:33 CLB (Rec: 06/08/18 16:34 CLB [id number]) Subjective Physical Therapy Visit Type Type Patient Refusal Notes Pt refused stating she was too tired.
[2018-06-08 18:40] LABS: Lactate (Lactic Acid) 0.8 mmol/L (0.7-2.1)
[2018-06-08] MEDS: LATANOPROST 0.005% OPHTH 2.5 ML 1 DROPS EYE-BOTH (20:58)
[2018-06-09] VITALS (10 sets, daily range): BP systolic 93–139; BP diastolic 64–81; PULSE 88–99; RESP 16–21; TEMP 36.6–38.1; O2SAT 96–100
[2018-06-09] MEDS: KCL 20 MEQ IN NS 1,000 ML 70 MEQ IV (03:07)
[2018-06-09 05:28] LABS: Add Manual Diff / Slide Review NO; Basophils Percent Auto 0.2 % (0-2); Eosinophils Percent Auto 0.9 % (2-4); Hematocrit 31.4 % (36-46); Hemoglobin 10.5 g/dL (12.0-16.0); Lymphocytes Percent Auto 55.2 % (25-40); Mean Corpuscular HGB Conc 33.4 % (30-36); Mean Corpuscular Hemoglobin 29.2 PG (26-34); Mean Corpuscular Volume 87.2 fL (80-100); Monocytes Percent Auto 2.9 % (3-14); Neutrophils Absolute Auto 8100 /uL (1500-7000); Neutrophils Percent Auto 40.8 % (50-75); Platelet Count 220 X10^3/uL (150-400); Red Cell Distribution Width 14.4 % (11.6-14.8); White Blood Cell Count 19.8 X10^3/uL (4.5-11.0)
[2018-06-09 05:34] LABS: Alanine Aminotransferase 19 IU/L (9-52); Albumin 2.6 g/dL (3.5-5.0); Albumin Globulin Ratio 0.9 (1.0-2.8); Alkaline Phosphatase 103 U/L (38-126); Aspartate Aminotransferase 15 IU/L (14-36); Bilirubin Total 0.4 mg/dL (0.2-1.3); Blood Urea Nitrogen 12 mg/dL (7-17); Carbon Dioxide 19 mmol/L (22-32); Chloride 109 mmol/L (98-107); Estimated Glomerular Filt Rate > 60.0 mL/min (>60); Globulin 2.8 g/dL (1.7-4.1); Glucose 134 mg/dL (80-110); HEMOLYSIS < 15 (0-50); Magnesium 1.3 mg/dL (1.6-2.3); Phosphorous 3.5 mg/dL (2.8-4.1); Sodium 141 mmol/L (137-145); Total Protein 5.4 g/dL (6.3-8.2)
[2018-06-09] MEDS: ACETAMINOPHEN 325 MG TABLET 650 MG PO (05:36)
[2018-06-09] MEDS: PANTOPRAZOLE 20 MG TABLET PO (05:37)
--- NOTE | 2018-06-09 06:53 | PC.NURSE ---
Pt. sleeping now after medicated with 650 mg. of Tylenol PO for right wrist pain & right hip pain. Will cont. POC & monitor.
--- NOTE | 2018-06-09 06:55 | PC.NURSE ---
Reported the pill you gave me did not really helped that much. Requested Dilaudid 0.5 mg. IVP administered. Will monitor.
[2018-06-09] MEDS: MEGESTROL SUSP 400 MG/10 ML UDC PO ×2 (08:58→20:50)
[2018-06-09] MEDS: MULTIVITAMIN 1 TABLET 1 TAB PO (08:58)
[2018-06-09] MEDS: ASPIRIN EC 81 MG TABLET PO (08:58)
[2018-06-09] MEDS: CEFEPIME 1 GM in SODIUM CHLORIDE 0.9% 100 ML 200 ML IV (08:58)
[2018-06-09] MEDS: HEPARIN 5,000 UNIT/ML VIAL 5000 UNIT SUBCUT ×2 (08:58→20:50)
--- NOTE | 2018-06-09 09:36 | PT.IPTN ---
Current Diagnoses Acute kidney failure, unspecified (06/02/18) Physical Therapy Treatment Note M2 PT-IP Current Condition Start: 06/03/18 16:22 Freq: NEEDED Status: Active Protocol: Document 06/04/18 09:39 (Rec: 06/04/18 12:27 [email or web address]) Physical Therapy Current Condition Current Condition Evaluation Date 06/04/18 Treatment Diagnosis Acute on chronic renal failure ; generalized weakness. Onset Date 06/02/18 Precautions Abdominal Surgery Precautions Log Roll Lifting Restrictions Gait Belt above Incisional Area Other Precautions colostomy incision still healing. PT recommended to continue with abdominal precautions. M3 PT-IP Subjective Start: 06/03/18 16:22 Freq: NEEDED Status: Active Protocol: Document 06/09/18 09:35 CLB (Rec: 06/09/18 09:36 CLB [id number]) Subjective Physical Therapy Visit Type Type Patient Refusal Notes Pt refused, stated she was feeling better and thinks she is leaving today. Will check back with pt this afternoon.
[2018-06-09] MEDS: DOXYCYCLINE 100 MG in SODIUM CHLORIDE 0.9% 100 ML IV (10:20)
--- NOTE | 2018-06-09 11:45 | ST.IPTN ---
LANGUAGE SPECIALIST Treatment Note LANGUAGE SPECIALIST Treatment Note Start: 06/06/18 09:49 Freq: Status: Active Protocol: Document 06/09/18 11:36 TLC (Rec: 06/09/18 11:45 TLC [id number]) Speech Pathology Treatment Note Session Time Visit Start Time 11:10 Visit Stop Time 11:30 Total Visit Minutes 20 Visit Information Visit Number 3 Setting Treatment Setting Acute Care Visit Type Note Type Treatment Note Next Note Type Next Note Type Treatment Note Subjective Identification Type Name Observations/Patient Presentation Maria Dolores was sitting up in the chair in her room. Her was present. Chief Complaint(s) Cognitive Objective Short Term Goals Patient will answer orientation questions with 100 % accuracy with assistance of external memory aids. - 80% Patient will correctly tell time with 100% accuracy in order to improve orientation skills. - 80% Treatment Activities Maria Dolores stated she was feeling more oriented and less confused today compared to previous days. She required min verbal cues to tell time correctly using the clock in the room, initially stating the time was 7 minutes later than what it was. She was oriented to self, place, date and year, though she self- corrected year after initially stating it was 2020. We discussed her probable discharge to SNF today and I recommended she continue to work with LANGUAGE SPECIALIST at facility to target improved cognitive function including functional tasks such as bill pay and training of compensatory strategies and external memory aids such as cell phone. Patient and were in agreement. Assessment Patient Response to Treatment Good Rehab Potential Good Impairments Identified Cognitive-Linguistic Skills Memory - Short Term Memory - Working Problem Solving Progress Towards Goals Good Progress Assessment of Overall Progress Improving Assessment of Improvement Progress is ongoing. Patient reports she is looking forward to SNF rehab to get stronger and return home. Observed mild word finding difficulty in conversation. Patient was unable to come up with word squeezed when talking about fresh squeezed orange juice. Otherwise, patient is able to effectively communicate. Reviewed with Patient Goals Patient/Caregiver Understanding Good Plan Therapy Recommendations Continue with Current Program, at d/c
--- NOTE | 2018-06-09 13:06 | CM.DPC ---
Addendum entered by Evelia Chen R.N. 06/09/18 14:05: Spoke to Teagan at [facility]. Stated that they could accept patient tomorrow. Hanna from utilization review is updating and patient. Will be going in private vehicle, is to take. Has been cleared with physical therapy that she can travel in car as well. Original Note: DCP Cont: Called [facility] to follow up on acceptance. Spoke to Teagan in admissions. She has stated that she had not seen any paperwork as of yet, but would look for it. Went ahead and refaxed clinical information to them. She did state that she received paper work, and would review today for acceptance. Still pending answer, and have updated Dr. Valdivia, hospitalist. Dr. Valdivia stated that when patient is accepted, will write orders. P: DCP to continue to follow and collaborate with Teagan, [facility], regarding decision of admission. Evelia Chen RN/[employer] Dr[employer] Re[employer]
--- NOTE | 2018-06-09 14:03 | CM.DPC ---
Per [facility] CC discussion with [facility], documents FAXED on this patient were not received yesterday, even though FAX confirmation had been received. These documents plus PASSR were faxed again this morning. FAX confirmation received. [facility] rep. Cheyanne called [facility] at 14:05 today stating they ARE able to take this patient tomorrow, 06/10. This information was relayed to the patient and her spouse by undersigned RN. They plan to transport her in [facility]. Therapy indicated today that to transport that long distance via wheelchair may be very uncomfortable for patient, and spouse is happy to transport. Private car would be most comfortable for pt. Relayed that therapy will be available to help them get her into the private car, and upon arrival at [facility] spouse will need to get assistance to transfer her out of car and into wheelchair. Both pt and spouse verbalized understanding of this plan. This information to be relayed to hospitalist so DC orders may be written tomorrow with appropriate paperwork filled out. Hanna Henson RN Case Manager
--- NOTE | 2018-06-09 15:27 | PT.IPTN ---
Current Diagnoses Acute kidney failure, unspecified (06/02/18) Physical Therapy Treatment Note M2 PT-IP Current Condition Start: 06/03/18 16:22 Freq: NEEDED Status: Active Protocol: Document 06/04/18 09:39 (Rec: 06/04/18 12:27 [email or web address]) Physical Therapy Current Condition Current Condition Evaluation Date 06/04/18 Treatment Diagnosis Acute on chronic renal failure ; generalized weakness. Onset Date 06/02/18 Precautions Abdominal Surgery Precautions Log Roll Lifting Restrictions Gait Belt above Incisional Area Other Precautions colostomy incision still healing. PT recommended to continue with abdominal precautions. M3 PT-IP Subjective Start: 06/03/18 16:22 Freq: NEEDED Status: Active Protocol: Document 06/09/18 14:35 CLB (Rec: 06/09/18 15:27 CLB [id number]) Subjective Physical Therapy Visit Type Type Patient Refusal Notes DELI COOK in the room and had just assisted pt into bed. Pt refused therapy due to just getting back in bed.
--- NOTE | 2018-06-09 15:43 | OT.IP.TRT ---
Current Diagnoses Acute kidney failure, unspecified (06/02/18) Occupational Therapy Treatment Note M2 OT-IP Current Condition Start: 06/03/18 12:04 Freq: Status: Active Protocol: Document 06/05/18 11:10 [facility] (Rec: 06/05/18 11:41 [facility] [id number]) Occupational Therapy Current Condition Current Condition Evaluation Date 06/05/18 Treatment Diagnosis weakness Diagnosis Onset Date 06/02/18 Post Operative Precautions Abdominal Surgery Precautions Log Roll Lifting Restrictions Gait Belt above Incisional Area Other Precautions colostomy incision still healing. PT recommended to continue with abdominal precautions. M3 OT- IP Subjective and Pain Start: 06/03/18 12:04 Freq: Status: Active Protocol: Document 06/09/18 15:29 [facility] (Rec: 06/09/18 15:38 [facility] [id number]) OT- Subjective Occupational Therapy Visit Type Type Treatment Note Visit Start Time 15:15 Visit Stop Time 15:23 Total Visit Minutes 8 Notes Pt states just finished using the bathroom and now comfortable in the bed and not wanting to get up as just got comfortable in bed. Able to speak to pt about her goals, what to except in rehab, and what kind of transportaion to go to rehab she felt that she needed. Occupational Therapy Visit Comments Patient/Caregiver Goals Pt feels ready to go to rehab tomorrow. OT Pain Assessment Pain When Pain Assessed At Rest Pain Present Pain Present Denied Pain Protocol: Document 06/05/18 11:10 [facility] (Rec: 06/05/18 11:41 [facility] [id number]) OT Summary Assessment and Plan Potential Rehabilitation Potential Good Analytic Complexity at Evaluation Moderate Summary OT Impairments Range of Motion Strength Balance Coordination Functional Cognition Functional Mobility Self-Feeding Grooming Dressing Toileting Bathing Toilet Transfers Shower Transfers Progress Towards Goals Slow Progress due to Medical Issues Slow Progress due to Activity Tolerance Slow Progress due to Cognition Assessment Summary Pt mod complexity and main barriers are steps, decreased endurance and activity tolerance and now needing assist for all ADl and functional mobility needs. Pt will benefit from skilled rehab . Goals Grooming Goal Standby Assistance Dressing Goal Minimal Assistance Toileting Goal Contact Guard Assistance Bathing Goal Minimal Assistance Toilet Transfer Goal Standby Assistance Shower Transfer Goal Contact Guard Assistance Patient/Caregiver Education Goal Caregiver Independent Assisting Patient Days to Meet Goals 7 Frequency of Treatment Frequency Of Treatment Once a Day Treatment Plan OT Treatment Plan ADL Training Functional Cognition Training Functional Mobility Patient/Family Education Discharge Planning Other Treatment Recommendations and Next Standn at the sink for Treatment Focus grooming needs. Discharge Recommendations OT Discharge Recommendations SNF Rehab
--- NOTE | 2018-06-09 16:14 | PM.PN.1 ---
Subjective Date Patient Seen: 06/09/18 Interval history: Patient has no specific complaints. She has mild shortness of breath which is chronic for her. She is ready to go to a SNF once a bed is available Exam Vital Signs (past 8 hours): - 06/09/18 13:30 Temperature 97.8 F Pulse Rate 90 Respiratory Rate 16 Blood Pressure 124/77 Pulse Oximetry 100 Oxygen Delivery Method Room Air Oxygen Flow Rate 0 Narrative Exam Narrative: Pleasant chronically ill female in no acute distress Lungs: Clear to auscultation CV:RRR nl Sl S2 Abd: soft/ non tender/ ostomy with brown stool and air Ext: no edema Objective Labs Result Diagrams: 06/09/18 04:55 06/09/18 04:55 Labs: Laboratory Results - last 24 hr 06/08/18 06/09/18 06/09/18 18:06 04:55 04:55 WBC 19.8 H RBC 3.60 L Hgb 10.5 L Hct 31.4 L MCV 87.2 MCH 29.2 MCHC 33.4 RDW 14.4 Plt Count 220 Neut % (Auto) 40.8 L Lymph % (Auto) 55.2 H [place] % (Auto) 2.9 L Eos % (Auto) 0.9 L Baso % (Auto) 0.2 Neut # (Auto) 8100 H Sodium 141 Potassium 4.0 Chloride 109 H Carbon Dioxide 19 L BUN 12 Creatinine 0.50 L Estimated GFR > 60.0 BUN/Creatinine Ratio 24.0 H Glucose 134 H Lactate 0.8 Calcium 8.0 L Phosphorus 3.5 D Magnesium 1.3 L Total Bilirubin 0.4 AST 15 ALT 19 Alkaline Phosphatase 103 Total Protein 5.4 L Albumin 2.6 L Globulin 2.8 Albumin/Globulin Ratio 0.9 L Assessment & Plan (1) Acute renal failure: Problem details: IV hydration with improvement Qualifiers: Acute renal failure type: unspecified Qualified Code(s): N17.9 - Acute kidney failure, unspecified Current visit: Yes Status: Acute (2) Chronic lymphocytic leukemia: Problem details: Baseline for patient. No intervention at this time. Current visit: Yes Status: Acute (3) Weakness: Problem details: Improving since admission. Continue with PT/OT, and SNF at discharge Current visit: Yes Status: Acute Quality VTE Deep Vein Thrombosis/Pulmonary Embolism Present on Admission: No
[2018-06-09] MEDS: LATANOPROST 0.005% OPHTH 2.5 ML 1 DROPS EYE-BOTH (20:51)
--- NOTE | 2018-06-10 00:08 | PC.NURSE ---
Addendum entered by Jory Severino R.N. 06/10/18 00:48: Noted earlier BP was 93/64 but patient is asymptomatic so will observe for now. Original Note: Patient is alert and oriented. Breath sounds with inspiratory crackles in RLL but RA sat 99%. HRR. Denies nausea. Yellow loose stool noted in ileostomy bag. BT hypoactive. Dressing to left of ostomy is CDI. States urinary urgency has improved; denies dysuria. Up to BSC with walker and SBA. Independent with bed mobility. Denies pain. Wearing bilateral VIVI stockings. Fall risk score is moderate; bed alarm is activated.
[2018-06-10 03:15] VITALS: BP 98/60; PULSE 89; RESP 16; TEMP 36.6; O2SAT 97
[2018-06-10 05:39] LABS: Add Manual Diff / Slide Review NO; Basophils Percent Auto 0.2 % (0-2); Eosinophils Percent Auto 1.7 % (2-4); Hematocrit 33.6 % (36-46); Hemoglobin 10.8 g/dL (12.0-16.0); Mean Corpuscular HGB Conc 32.1 % (30-36); Mean Corpuscular Hemoglobin 28.1 PG (26-34); Mean Corpuscular Volume 87.7 fL (80-100); Monocytes Percent Auto 3.8 % (3-14); Neutrophils Absolute Auto 6600 /uL (1500-7000); Neutrophils Percent Auto 36.3 % (50-75); Platelet Count 263 X10^3/uL (150-400); Red Blood Cell Count 3.83 X10^6/uL (4.0-5.2); White Blood Cell Count 18.2 X10^3/uL (4.5-11.0)
[2018-06-10 05:53] LABS: Alanine Aminotransferase 25 IU/L (9-52); Albumin 2.7 g/dL (3.5-5.0); Albumin Globulin Ratio 0.9 (1.0-2.8); Alkaline Phosphatase 114 U/L (38-126); Aspartate Aminotransferase 19 IU/L (14-36); Bilirubin Total 0.4 mg/dL (0.2-1.3); Blood Urea Nitrogen 12 mg/dL (7-17); Calcium 8.3 mg/dL (8.4-10.2); Carbon Dioxide 22 mmol/L (22-32); Chloride 110 mmol/L (98-107); Estimated Glomerular Filt Rate > 60.0 mL/min (>60); Glucose 79 mg/dL (80-110); HEMOLYSIS < 15 (0-50); Magnesium 1.2 mg/dL (1.6-2.3); Phosphorous 3.4 mg/dL (2.8-4.1); Potassium 4.6 mmol/L (3.4-5.1); Sodium 140 mmol/L (137-145); Total Protein 5.7 g/dL (6.3-8.2)
[2018-06-10] MEDS: PANTOPRAZOLE 20 MG TABLET PO (05:58)
[2018-06-10 07:50] VITALS: BP 102/64; PULSE 81; RESP 20; TEMP 36.6; O2SAT 99
--- NOTE | 2018-06-10 10:17 | P.DS_ITS ---
History of Present Illness Date Patient Seen: 06/10/18 Chief complaint: weak no appetite Narrative: The patient is a 73-year-old AA female with PMH significant for HTN, COPD, PRIOR tobacco dependence (20 pack yrs, quit Apr 2018), erythrocytosis, polycythemia, and a myeloproliferative disorder / CLL. Patient presented to the ED on 06/02/2018 at 2:30 p.m., respectively, out of concern for progressive generalized weakness. Patient has been experiencing overall debility and deconditioning since acute illness and surgical procedure. In the past 7-10 days, the degree of weakness has become more profound. Associated symptoms include diminished energy, diminished mobility, poor appetite, weight loss, and intermittent confusion. Denies fever or hills. Denies chest pain, palpitations, dyspnea, orthopnea, peripheral edema, PND or claudication. Denies headache, dizziness, lightheadedness, or syncopal events. Patient notes presence of baseline tremor, which has not been worse. Denies muscle cramps / myopathy, paresthesia, or fasciculations. No recent falls or trauma to abdomen or torso. Denies abdominal, back, and flank pain. No new rashes. Reports no change in pattern of micturition; no dysuria, frequency or hematuria. Denies melena and hematochezia. Notes some bloody discharge, which she believes is from her wound. Patient does have an ostomy. reports having trouble with the ostomy. Drains 1-2 bags daily. Reports Sensation of thirst most of the time; however, denies polyuria. Drinks 3-4 glasses of fluid daily, which consist of a combination of Pepsi, water, apple or orange juice. Pertinent home medications include daily low-dose aspirin. Reports using 200- 400 mg of ibuprofen , on occasion, 2-3 times altogether in the past month. Discharge Providers Date of admission: 06/02/18 16:02 Primary care physician: Sayra Russo MD Consults: 06/02/18 16:11 Consult to Dietitian, Adult Routine Comment: Reason For Exam: MALNUTRITION Consult to Discharge Planning Routine Comment: Consult to Occupational Therapy Evaluate & Treat Comment: Physician Instructions: Evaluate and treat Consult to Physical Therapy Evaluate & Treat Comment: Physician Instructions: Evaluate and Treat 06/02/18 16:12 Consult to Shaping Machine Tender Routine Comment: 06/02/18 19:13 Consult to Dietitian, Adult Routine Comment: Reason For Exam: being losing weight since colon surgery in 06/03/18 06:02 Consult to General Surgery Routine Comment: Consulting Provider: Joshua Nj Reason for consultation: s/p small bowel resection, problem w/ ostomy Has provider been notified: No 06/05/18 07:52 Consult to Speech Therapy Evaluate & Treat Comment: Physician Instructions: Evaluate and treat 06/06/18 15:08 Consult to Dietitian, Adult Routine Comment: Reason For Exam: POOR APPETITE; MALNUTRITION Discharge provider: Domi Valdivia MD Discharge Date: 06/10/18 Summary Discharge Diagnosis: Generalized Weakness Chronic Lymphocytic Leukemia Severe Protein Calorie Malnutrition Urinary Tract Infection COPD w/o exacerbation Metabolic Acidosis S/p bowel resection with colostomy in place Erythrocytosis Hypertension Acute Kidney Injury-resolved Hospital Course: Patient was admitted to the hospital for progressive weakness. She was found to be dehydrated with acute kidney injury. She also had an elevated WBC with associated pyuria. She was treated for urinary tract infection. She has a chronically elevated WBC attributed to her CLL. She was evaluated by nutrition/PT/OT. She made slow but steady improvement in her symptoms. Her appetite improved, her WBC improved, she felt stronger, and her breathing returned to her baseline. She was no longer confused. Patient was deemed appropriate for discharge to [facility] facility. Status at Discharge Functional status at discharge: wheelchair bound Overall status at discharge: patient is back to baseline Time Spent with Patient Less than 30 minutes Exam Vital Signs (past 8 hours): - 06/10/18 03:15 06/10/18 07:50 Temperature 97.8 F 97.8 F Pulse Rate 89 81 Respiratory Rate 16 20 Blood Pressure 98/60 102/64 Pulse Oximetry 97 99 Oxygen Delivery Method Room Air Oxygen Flow Rate 0 Narrative Exam Narrative: Pleasant female in No acute distress Lungs: decreased but clear to auscultation CV:RRR Nl SlS2 Abd: soft/ non tender with normoactive bowel tones, ostomy in place Ext: no edema Objective Labs Result Diagrams: 06/10/18 05:05 06/10/18 05:05 Labs: Laboratory Results - last 24 hr 06/10/18 06/10/18 05:05 05:05 WBC 18.2 H RBC 3.83 L Hgb 10.8 L Hct 33.6 L MCV 87.7 MCH 28.1 MCHC 32.1 RDW 14.0 Plt Count 263 Neut % (Auto) 36.3 L Lymph % (Auto) 58.0 H [place] % (Auto) 3.8 Eos % (Auto) 1.7 L Baso % (Auto) 0.2 Neut # (Auto) 6600 Sodium 140 Potassium 4.6 Chloride 110 H Carbon Dioxide 22 BUN 12 Creatinine 0.60 Estimated GFR > 60.0 BUN/Creatinine Ratio 20.0 Glucose 79 L Calcium 8.3 L Phosphorus 3.4 Magnesium 1.2 L Total Bilirubin 0.4 AST 19 ALT 25 Alkaline Phosphatase 114 Total Protein 5.7 L Albumin 2.7 L Globulin 3.0 Albumin/Globulin Ratio 0.9 L Discharge Plan Discharge Plan Patient Disposition: SNF Other facility: [facility] Transportation: Private vehicle Consult as needed: Dental, Hearing, Mental health, Podiatry and Vision I certify the postop hospital long-term care is medically necessary on a continuing basis for any conditions for which he/ she received care during this hospitalization.: Yes The receiving facility has agreed to accept transfer and provide medical treatment.: Yes Discharge Med Rec/Prescriptions Prescriptions: New pantoprazole 20 mg Tablet,Delayed Release (Dr/Ec) 20 mg PO 0600 Qty: 30 RF: 0 megestrol 400 mg/10 mL (10 mL) Suspension 400 mg PO BID 30 Days Qty: 600 RF: 0 Continue latanoprost 0.005 % drops 1 drp ophthalmic (eye) BEDTIME RF: 0 calcium carbonate [Calcium 500] 500 mg calcium (1,250 mg) Tablet 500 mg PO DAILY Qty: 0 RF: 0 mirtazapine 15 mg tablet 15 mg PO BEDTIME RF: 0 nicotine 21 mg/24 hr Patch 24 Hour 1 patch TRANSDERMAL DAILY RF: 0 enrgw-0c-xlx-epa-fish oil [[place]-3 Fish Oil] 300-1,000 mg Capsule 1,000 mg PO DAILY RF: 0 aspirin [Aspir-81] 81 mg Tablet,Delayed Release (Dr/Ec) 1 tab PO DAILY RF: 0 multivitamin Tablet 1 tab PO DAILY RF: 0 Follow up/Referrals: Sayra Russo MD [Primary Care Provider] - Provider Discharge Instructions Diet: Low-sodium Liquid consistency: Normal/Thin Food texture: Regular Diet comment: 2 cans ensure with each meal Activity: As tolerated Skin/Wound/Dressing Care Report to your healthcare provider any signs of infection, such as:: chills, fever, night sweats and increased pain Special Rehabilitation Services Reason for rehabilitation: Recovery r/t decondition Rehab type: Physical therapy and Occupational therapy Restrictions to mobility: None Discharge Data Primary Care Provider: Sayra Russo Attending Provider: Noemí Carney Admit Date/Time: 06/02/18 16:02 Quality VTE Deep Vein Thrombosis/Pulmonary Embolism Present on Admission: No
[2018-06-10 10:30] VITALS: O2SAT 98
[2018-06-10] MEDS: HEPARIN 5,000 UNIT/ML VIAL 5000 UNIT SUBCUT (10:33)
[2018-06-10] MEDS: MULTIVITAMIN 1 TABLET 1 TAB PO (10:33)
[2018-06-10] MEDS: MEGESTROL SUSP 400 MG/10 ML UDC PO (10:33)
[2018-06-10] MEDS: ASPIRIN EC 81 MG TABLET PO (10:33)
--- NOTE | 2018-06-10 10:35 | OT.IP.TRT ---
Current Diagnoses Lymphoid leukemia, unspecified not having achieved remission (06/02/18) Acute kidney failure, unspecified (06/02/18) Weakness (06/02/18) Occupational Therapy Treatment Note M2 OT-IP Current Condition Start: 06/03/18 12:04 Freq: Status: Active Protocol: Document 06/05/18 11:10 [facility] (Rec: 06/05/18 11:41 [facility] [id number]) Occupational Therapy Current Condition Current Condition Evaluation Date 06/05/18 Treatment Diagnosis weakness Diagnosis Onset Date 06/02/18 Post Operative Precautions Abdominal Surgery Precautions Log Roll Lifting Restrictions Gait Belt above Incisional Area Other Precautions colostomy incision still healing. PT recommended to continue with abdominal precautions. M3 OT- IP Subjective and Pain Start: 06/03/18 12:04 Freq: Status: Active Protocol: Document 06/10/18 10:32 [facility] (Rec: 06/10/18 10:35 [facility] [id number]) OT- Subjective Occupational Therapy Visit Type Type Patient Refusal Notes Pt going to skilled rehab today and would rather focus her activity tolerance with PT versus shower with OT. Pt would prefer aid to assist with shower versus attempt to do showering with OT.
--- NOTE | 2018-06-10 10:49 | PT.IPTN ---
Current Diagnoses Lymphoid leukemia, unspecified not having achieved remission (06/02/18) Acute kidney failure, unspecified (06/02/18) Weakness (06/02/18) Physical Therapy Treatment Note M2 PT-IP Current Condition Start: 06/03/18 16:22 Freq: NEEDED Status: Active Protocol: Document 06/04/18 09:39 (Rec: 06/04/18 12:27 [id number]) Physical Therapy Current Condition Current Condition Evaluation Date 06/04/18 Treatment Diagnosis Acute on chronic renal failure ; generalized weakness. Onset Date 06/02/18 Precautions Abdominal Surgery Precautions Log Roll Lifting Restrictions Gait Belt above Incisional Area Other Precautions colostomy incision still healing. PT recommended to continue with abdominal precautions. M3 PT-IP Subjective Start: 06/03/18 16:22 Freq: NEEDED Status: Active Protocol: Document 06/10/18 09:44 [facility] (Rec: 06/10/18 10:49 [facility] [id number]) Subjective Physical Therapy Visit Type Type Treatment Note Visit Start Time 09:44 Visit Stop Time 09:59 Total Visit Minutes 15 Number of CHAIN REPAIRER Visits 2 Physical Therapy Visit Comments Patient Comments Pt needs to use the bathroom. M4 PT-IP Mobility and Gait Start: 06/03/18 16:22 Freq: NEEDED Status: Active Protocol: Document 06/10/18 09:44 [facility] (Rec: 06/10/18 10:49 [facility] [id number]) PT-Bed Mobility Assessment Supine to Sit Supine to Sit Standby Assistance Head of Bed Elevated Scooting Scooting to Edge of Bed Standby Assistance PT-Transfer Assessment Sit to and From Stand Sit to and from Stand Contact Guard Assistance Use of Upper Extremities Equipment Transfer Assistive Device Gait Belt Front Wheeled Walker Orthotic/Prosthetic Devices or Brace: No Transfers Transfer Destination Chair Toilet Transfer Ability Level of Assist Contact Guard Assistance Use of Upper Extremities Gait Assessment Gait Gait Assistance Required: Contact Guard Assist Distance (Feet) 40 Able to Maintain Weight Bearing Status Yes During Gait Assistive Devices Assistive Device Gait Belt Front Wheeled Walker Orthotic/Prosthetic Devices or Brace: No Gait Deviations General Gait Pattern Decreased Stride Length Decreased Feet Clearance Flexed Trunk Factors Limiting Gait Function Factors Limiting Gait Function Decreased Activity Tolerance Decreased Strength Poor Balance M5 PT-IP Objective Assessments Start: 06/03/18 16:22 Freq: NEEDED Status: Active Protocol: Document 06/04/18 09:39 (Rec: 06/04/18 12:27 [id number]) Orientation Orientation/Cognition Level of Alertness Alert Orientation Name Birthday Language Function Ability No Deficits Noted Safety Awareness Decreased Safety Awareness Comments Pt needs increased time for responses, but able to respond appropriately and follow directions. Gross Range of Motion Lower Extremity ROM Assessment Within Functional Limits Strength Lower Extremity Strength Assessment Bilaterally Impaired Hip B hips 3+/5 Knee B knees 4-/5 Ankle B ankles 4/5 M6 PT-IP Treatment Start: 06/03/18 16:22 Freq: NEEDED Status: Active Protocol: Document 06/04/18 09:39 (Rec: 06/04/18 12:27 [email or web address]) Physical Therapy Treatment Exercises Exercises Ankle Pumps Quad Sets Education Education Provided Precautions Safety Other Treatments Other Treatment Performed Pt advised to continue with abdominal precautions. Pt instructed in seated marching, quad sets and ankle pumps for general strengthening and endurance. M7 PT-IP Assessment and Plan Start: 06/03/18 16:22 Freq: NEEDED Status: Active Protocol: Document 06/10/18 09:44 [facility] (Rec: 06/10/18 10:49 [facility] [id number]) PT Summary Assessment and Plan Summary Assessment Summary Pt SBA for bed mobility and CGA for gait for safety. Pt required CGA for sit<>stand on /off toilet and pt used handrail for balance with cr /doffing brief. Pt able to stand at sink CGA to wash face and rinse mouth. Pt will benefit from skilled rehab to increase safety, strength and endurance. Goals Bed Mobility Goal Contact Guard Assistance Transfer Goal Contact Guard Assistance Front Wheeled Walker Gait Goal Standby Assistance Front Wheel Walker Gait Distance 100 Other Goals Up/down 2 steps CGA, no rail as needed to access home safely. Days to Meet Goals 5 Frequency of Treatment Frequency Of Treatment Once a Day
--- NOTE | 2018-06-10 11:47 | CM.DPC ---
DCP/continued: Reviewed chart. Order obtained for patient to d/c to SNF today. Current SNF choice is [facility] in [place]. Per CM team notes patient has been accepted. Orders obtained and faxed to facility by [facility]. PREANALYTICS TEAM LEAD placed call to [facility] spoke with Teagan, she confirms acceptance. Spouse requesting to transport patient. PREANALYTICS TEAM LEAD provided spouse with number to facility. He is instructed to call number when he arrives so that [facility] staff can assist with transferring patient into facility. He is agreeable. RN updated. Patient expected to d/c within the next hour. No additional needs identified. P: [facility] today via private automobile. ANGEL Clement
[2018-06-10] MEDS: MAGNESIUM OXIDE 400 MG TABLET PO (12:40)
--- NOTE | 2018-06-10 16:30 | PC.NURSE ---
Day Shift- Pt had shower with TOP BOTTOM ATTACHING MACHINE OPERATOR assist. After shower Ostomy appliance changed using 2 piece appliance. Pt's Ned assisted as he performs this indep at home for pt. Pt tolerated well. Pt's to transport pt to [facility] via private vehicle. Reviewed partial discharge packet with pt and Ned at bedside, states has all belongings. Pt left unit at 1245 via wheelchair with TOP BOTTOM ATTACHING MACHINE OPERATOR in no distress.
== END 2018-06-10 12:45 | DRG 682 ==
LOC: ED 15:43 → AC 16:03
PROVIDERS: Nurse Practitioner Gerontology; Admitting Provider Hospitalist; Emergency Provider Emergency Medicine; PCP Internal Medicine; Visit Provider Hospitalist
DX: N17.9 Acute kidney failure, unspecified (principal); E43 Unspecified severe protein-calorie malnutrition; E87.1 Hypo-osmolality and hyponatremia; C91.10 Chronic lymphocytic leukemia of B-cell type not having achieved remission; E87.2 Acidosis; Z68.1 Body mass index [BMI] 19.9 or less, adult; N39.0 Urinary tract infection, site not specified; J44.1 Chronic obstructive pulmonary disease with (acute) exacerbation; K44.9 Diaphragmatic hernia without obstruction or gangrene; D75.1 Secondary polycythemia; Z93.3 Colostomy status; E83.39 Other disorders of phosphorus metabolism; I10 Essential (primary) hypertension; Z87.891 Personal history of nicotine dependence; E83.52 Hypercalcemia; E86.0 Dehydration
CPT/HCPCS: 36415; 36591; 71045; 74018; 74022; 80048; 80053; 80069; 81001; 82330; 82340; 82570; 83605; 83735; 84100; 84105; 84133; 84145; 84300; 84484; 85025; 85999; 87040; 87086; 87177; 87493; 92610; 93005; 93010; 96360; 96361; 97110; 97116; 97127; 97162; 97166; 97530; 97535; 99283; 99284; J0692; J0696; J1450; J1644; J2405

== ENCOUNTER → 2018-06-27 13:30 | Outpatient (CLI) | payer MEDICARE, SELFPAY ==
[2018-06-02 19:08] VITALS: BMI 16.9
[2018-06-27 13:52] LABS: Hemoglobin 12.5 g/dL (12.0-16.0); Mean Corpuscular Hemoglobin 28.7 PG (26-34); Mean Corpuscular Volume 89.8 fL (80-100); Platelet Count 346 X10^3/uL (150-400); Red Blood Cell Count 4.34 X10^6/uL (4.0-5.2); Red Cell Distribution Width 15.4 % (11.6-14.8)
[2018-06-27 13:55] LABS: Add Manual Diff / Slide Review YES; White Blood Cell Count 42.9 X10^3/uL (4.5-11.0)
[2018-06-27 14:09] LABS: Neutrophils Absolute Manual 14157 /uL (3000-5900); Total Cells Counted 100
[2018-06-27 14:10] LABS: Anisocytosis 1+; Poikilocytosis 1+
== END ==
PROVIDERS: Nurse Practitioner Gerontology
DX: C91.90 Lymphoid leukemia, unspecified not having achieved remission (principal); D75.1 Secondary polycythemia
CPT/HCPCS: 36415; 85025

== ENCOUNTER 2018-07-01 09:38 | Day surgery (SDC) | payer MEDICARE, SELFPAY ==
[2018-05-13 14:16] VITALS: BMI 20.7
[2018-07-01] VITALS (10 sets, daily range): BP systolic 120–136; BP diastolic 80–90; PULSE 74–84; RESP 7–18; TEMP 36.2–36.9; O2SAT 97–100; BMI 19.3
[2018-07-01] MEDS: SODIUM CHLORIDE 0.9% 1,000 ML 200 ML IV (10:24)
--- NOTE | 2018-07-01 11:04 | PM.PREOP ---
Pre-operative Note Interval Note History & Physical reviewed/Exam performed by Physician: Yes Changes to H&P: No ASA Class (for procedural sedation): II
[2018-07-01] MEDS: MIDAZOLAM 5 MG/5 ML VIAL IV (11:22)
[2018-07-01] MEDS: fentaNYL 250 MCG/5 ML INJ IV (11:23)
--- NOTE | 2018-07-01 11:36 | PM.OP.ENDO ---
Operative Date/Time/Diagnoses Date of procedure: 07/01/18 Time of procedure: 11:36 Pre-op diagnosis: Ileostomy with history of ileocolonic stricture Post-op diagnosis: same (No evidence of stricture remaining) Procedure & Clinicians Study performed: Evaluation of ostomy through the ostomy with a scope. Same procedure as scheduled: Yes Indications: Pre closure evaluation of her ileostomy and ileocolonic anastomosis Surgeon: Senthil Bright Procedure Notes SCOAP/Timeout: Performed Procedure in detail: Patient's bag was removed and the proximal limb of the ostomy cannulated with a colonoscope. Was examined well below the fascial level was normal in appearance. Scope was removed inserted through the distal Afferent limb and inserted to a depth of 10 cm. I could not get further with this scope. It did not appear to be flexible enough. The scope was removed and an EGD scope was inserted advanced with some difficulty to and through the anastomosis. The anastomosis appeared widely patent. The colon appeared to be healthy but contained form stool. The scope was removed and the patient tolerated the procedure well.. Scope withdrawal time: Not applicable Sedation minutes: 19 Findings: other findings (Normal ileostomy without stricture and no stricture at the ileocolonic anastomosis.) Specimen(s): none sent Complications: none Recommendations: Other recommendation (Can proceed ileostomy closure) Follow up: weeks (For operation already scheduled) Disposition: PACU
--- NOTE | 2018-07-01 12:09 | SUR.PHASEI ---
CONTINUOUS DRIER HELPER IN TO RE DRESS OSTOMY SITE, NEW WAFER AND BAG APPLIED.
--- NOTE | 2018-07-01 14:53 | SUR.PHASEII ---
PRIOR TO D/C DR ARMENDARIZ SPOKE AT LENGTH WITH PT AND HER REGARDING PROCEDURE AND UPCOMING SURGERY. DISCHARGE INSTRUCTIONS REVIEWED WITH VERBALIZED UNDERSTANDING.
== END 2018-07-01 15:45 ==
LOC: ENDO 09:40
PROVIDERS: Visit Provider Specialist
PROC: 0DJD8ZZ Inspection of Lower Intestinal Tract, Via Natural or Artificial Opening Endoscopic (ICD-10-PCS; CPT 45378; principal; 2018-07-01 10:45)
DX: Z87.19 Personal history of other diseases of the digestive system (principal); Z43.2 Encounter for attention to ileostomy; I10 Essential (primary) hypertension; E44.1 Mild protein-calorie malnutrition; Z68.1 Body mass index [BMI] 19.9 or less, adult
CPT/HCPCS: 44388; 99152; J2250; J3010

== ENCOUNTER 2018-07-10 08:43 | Inpatient (IN) | payer MEDICARE, SELFPAY ==
--- NOTE | 2018-07-01 17:27 | PC.NURSE ---
Wound Ostomy Note Called to bring supplies to PACU as there were no ostomy supplies. Nurse asked me to place a pouching appliance. I placed Gillian in a [facility] two piece non-filter, flat moldable 45mm pouching system. Gillian recognized me and wished me a happy New Year. I told her I could see that she has gained some weight, which is great, and she said she did and was pleased. I will follow up with Gillian in a few days.
[2018-07-04 12:39] VITALS: BMI 19.3
[2018-07-10] VITALS (22 sets, daily range): BP systolic 98–142; BP diastolic 35–87; PULSE 67–77; RESP 10–18; TEMP 36–36.9; O2SAT 96–100; BMI 19.3; BMI 20.9
--- NOTE | 2018-07-10 | PATH_ITS ---
[facility] Accession Number: [id number] . 01 Material submitted: . OSTOMY . 02 Diagnosis: Resected Segment of Small Bowel Including Ileostomy Site: Focal areas of mucosal erosion involving small bowel mucosa, nonspecific. Negative for granulomas. Negative for dysplasia and malignancy. MRV/07/14/2018 . 02 Electronically signed: . Parrish Sprague MD, Pathologist NPI- [id number] . 01 Gross description: . Received in formalin, labeled ostomy, are two segments of small bowel sutured together in one continuous segment (length-4.7 cm, resection margin #1 diameter-2.0 cm, resection margin #2 diameter-1.5 cm) with attached adipose tissue (up to 1.3 cm in depth). The resection margins are received stapled. The mucosa is roberts with normal folds. A focally roberts-pink firm area is identified at the junction site of the two segments. No nodules, masses or lesions are identified. Also, received is an apparent stoma (diameter-2.6 x 2.6 cm, thickness-0.6 cm) consisting of goel-roberts skin encircling roberts unremarkable mucosa. The resection margins are inked black. Section code: (A1) resection margin #1, reimbursement representative longitudinal sections; (A2) resection margin #2, longitudinal reimbursement representative sections; (A3) reimbursement representative serial sections; (A4) stoma, reimbursement representative serial sections. ([id number]) /[facility] . 02 Pathologist provided ICD-10: Z43.2 . 02 CPT . 264292 Performed at: [address], [place], [place] [id number] MD Russ Jay MD Phone: [phone] Performed at: 02 [facility] [place] [address] [place] [id number] MD Sarahi Coulter MD Phone: [phone]
[2018-07-10 09:23] LABS: Hematocrit 37.6 % (36-46); Hemoglobin 12.1 g/dL (12.0-16.0); Mean Corpuscular HGB Conc 32.3 % (30-36); Mean Corpuscular Hemoglobin 29.3 PG (26-34); Mean Corpuscular Volume 90.8 fL (80-100); Platelet Count 138 X10^3/uL (150-400); Red Blood Cell Count 4.14 X10^6/uL (4.0-5.2); Red Cell Distribution Width 17.1 % (11.6-14.8)
[2018-07-10 09:24] LABS: Add Manual Diff / Slide Review YES; White Blood Cell Count 32.8 X10^3/uL (4.5-11.0)
[2018-07-10] MEDS: FLEETS ENEMA 1 EACH PR (09:42)
[2018-07-10 09:44] LABS: Neutrophils Absolute Manual 8856 /uL (3000-5900); Platelet Morphology Comment U1; RBC Morphology Normal Morphology; Total Cells Counted 100
--- NOTE | 2018-07-10 10:09 | P.HP_ITS ---
History of Present Illness Date Patient Seen: 07/10/18 Time Patient Seen: 09:41 Chief complaint: [id number] Narrative: Patient is a woman here for closure of an ileostomy. This was placed due to an obstruction in the perioperative. From a stricture that was quite unusual in her distal ileum to her anastomosis. She has not tolerated her ileostomy very well and had a period of dehydration and malnutrition. That has been overcome and she is here now for closure. She recently had a evaluation of the area between her ostomy and says colon and there was found to be no stricture and no problem with her colon. She underwent an outpatient bowel prep that included oral antibiotics. Patient History Medical History Breast cancer, left (Acute ~2011) COPD (chronic obstructive pulmonary disease) (Acute) Colostomy in place (Acute) Depression (Acute) History of UTI (Acute) Hypertension (Acute) Impaired vision (Acute) Lack of appetite (Acute) Mild protein-calorie malnutrition (Acute) Small bowel obstruction (Acute) Wears dentures (Acute) CLL (chronic lymphocytic leukemia) (Chronic) Erythrocytosis (Chronic) Glaucoma (Chronic) H/O: hysterectomy (Resolved) Mass of appendix (Resolved) Other bursal cyst, unspecified wrist (Resolved) Tubal ligation status (Resolved) Surgical History S/P small bowel resection (Acute) History of colonoscopy (Acute) Status post laparoscopic colectomy (Acute) Family & Social History Family History: Reviewed 07/10/18 by Senthil Bright MD Social History: household members spouse Prior Living Arrangements House Safety & Behavioral: Feels Safe in Current Yes Environment Been Physically Hurt or No Threatened By a Person Suicidal Ideation Description None Suicide Plan Description No Plan Tobacco & Substance use: Tobacco type cigarettes Smoking Status Former smoker alcohol intake current alcohol intake frequency 0-2 drinks per day Substance Use Type does not use Meds Home Medications Medication Instructions Recorded Confirmed Type aspirin [Aspir-81] 1 tab PO DAILY 11/15/17 07/10/18 History multivitamin 1 tab PO DAILY 11/15/17 07/10/18 History calcium carbonate [Calcium 500] 500 mg PO DAILY #0 12/24/17 07/10/18 History latanoprost 1 drp OPHTHALMIC (EYE) BEDTIME 12/24/17 07/10/18 History mirtazapine 15 mg PO BEDTIME 06/02/18 07/10/18 History kmuqg-0j-nsa-epa-fish oil [[place]-3 1,000 mg PO DAILY 06/02/18 07/10/18 History Fish Oil] erythromycin See Label Instructions .ROUTE 07/01/18 07/10/18 Rx .COMPLEX #4 tab neomycin See Label Instructions .ROUTE 07/01/18 07/10/18 Rx .COMPLEX #4 tab ibuprofen 200 - 400 mg PO QID PRN 07/04/18 07/10/18 History pantoprazole 20 mg PO QAM 07/04/18 07/10/18 History Allergies Allergy/AdvReac Type Severity Reaction Status Date / Time lisinopril Allergy Severe SWELLING Verified 07/10/18 09:11 LIPS, TONGUE Review of Systems Review of Systems Denies any cough cold or asthma. No chest pain or heart problems. Has not had any black or bloody stool in her ostomy. She has had little function of her colon. No seizures or blackouts. Appetite is markedly improved. She is eating well. Exam Vital Signs (past 8 hours): - 07/10/18 09:18 Temperature 96.8 F L Pulse Rate 70 Respiratory Rate 15 Blood Pressure 133/84 Pulse Oximetry 100 Oxygen Delivery Method Room Air Narrative Exam Narrative: Then cooperative woman in no apparent distress. Eyes are nonicteric. Lungs are clear to auscultation no rales or rhonchi. Heart regular rate and rhythm without murmur gallop. Abdomen is scaphoid soft nontender without masses. She has an ostomy in the right lower quadrant. No obvious hernias of her abdominal wall. She is alert and oriented x3. Speech rate and content are appropriate. Affect is little flat. Objective Labs Result Diagrams: 07/10/18 09:14 Labs: Laboratory Results - last 24 hr 07/10/18 09:14 WBC 32.8 H* RBC 4.14 Hgb 12.1 Hct 37.6 MCV 90.8 MCH 29.3 MCHC 32.3 RDW 17.1 H Plt Count 138 L Neut % (Auto) Not Reportable Lymph % (Auto) Not Reportable [place] % (Auto) Not Reportable Eos % (Auto) Not Reportable Baso % (Auto) Not Reportable Lymph # (Auto) Not Reportable [place] # (Auto) Not Reportable Baso # (Auto) Not Reportable Total Counted 100 Seg Neutrophils % 27.0 L Lymphocytes % (Manual) 71.0 H Atypical Lymphs % 1.0 H Monocytes % (Manual) 1.0 L Neutrophils # (Manual) 8856 H Plt Morphology Comment U1 RBC Morphology Normal morphology Assessment & Plan Plan: Assessment/Plan Narrative: Patient for an ileostomy closure. She has chronic lymphocytic leukemia. Her white count is 42. I discussed this with Dr. peacock of oncology. So long as she is not profoundly anemic or significantly thrombocytopenic they would not treat and he suggested we could proceed with her operation. I discussed the procedure with the patient the office. Risks of bleeding infection stricture leakage hernia all discussed. She appears to understand and wishes to proceed.
--- NOTE | 2018-07-10 10:09 | PM.PREOP ---
Pre-operative Note Interval Note History & Physical reviewed/Exam performed by Physician: Yes Changes to H&P: No
[2018-07-10] MEDS: LACTATED RINGERS 1,000 ML 42 ML IV ×2 (10:13→12:10)
[2018-07-10] MEDS: CEFOTETAN 2 GM/50 ML PIGGYBACK IV ×2 (10:30→21:35)
[2018-07-10] MEDS: metroNIDAZOLE 500 MG/100 ML PIGGYBACK 100 MG IV (10:30)
--- NOTE | 2018-07-10 11:02 | SUR.OPER ---
Supine on padded OR bed, head on pillow, arms secured on padded arm boards at <90 degrees abduction, legs uncrossed, safety belt at thigh, tape over blanket over lower legs.
[2018-07-10] MEDS: BUPIVACAINE 0.5% (PF) VIAL 30 ML INJ (11:15)
--- NOTE | 2018-07-10 12:50 | PM.OP.1 ---
Operative Date/Time/Diagnoses Date of procedure: 07/10/18 Time of procedure: 12:50 Pre-op diagnosis: Ileostomy for closure Post-op diagnosis: same Procedure & Clinicians Procedure: Ileostomy closure with small-bowel resection. Same procedure as scheduled: Yes Indications: Patient with a temporary ileostomy brought in for closure of that ostomy Surgeon: Senthil Bright Click Yes if Unassisted: Yes Anesthesia Type: General Operative Notes Findings: Viable ostomy. Leak test negative. Closure Type: non-primary Specimen(s): other (Small-bowel) Implants & Drains: None Estimated Blood Loss (mL): 75 Blood products transfused: none Procedure in detail: The patient is placed supine on the operating room table and underwent general endotracheal anesthesia. A Betadine-soaked 4 x 4 was placed in the proximal ostomy opening to prevent spillage and the patient was prepped and draped in the usual fashion. Incision made circumferentially around the ostomy. This carried in the subcu in the small bowel was dissected from the subcu and fascia and the peritoneum entered. It was freed completely and mobile. I resected the ostomy hoping to use the intact back wall but when I created a anastomosis the leak test failed twice. Therefore I decided that I should remove this and do an end-to-end anastomosis in fresh tissue. A PIERO was fired in healthy small bowel proximal and distal to where the ostomy had been. This was removed after tying the mesentery with 2 0 silk. The transection of the small bowel was made in such a way that the stapler was angled back toward the mesentery to give me a longer suture line and to maintain the blood supply optimally. Back wall of 3 0 silks was placed. An inner running 3 0 Vicryl Curt inner layer was created and then the anterior wall of 3 0 seromuscular silks were placed. The anastomosis appeared to be adequate. They opening was palpable. And on leak testing this time there was no leak of material and material crossed without difficulty from 1 side to another. The area was irrigated and the intestine returned to the peritoneal cavity. There was essentially no mesenteric defect due to the short segment of bowel removed. The fascial edge was cleared of tissue and then the inner rectus layer was closed with a running 0 Vicryl. The outer rectus fascia was closed with interrupted 0 PDS. The wound was irrigated between an after and the skin was left open but 3 0 nylon sutures were placed to be tied later. A saline wet to dry dressing was placed and the patient was awakened extubated with the Lester removed and taken the recovery room good condition. Complications: none Condition: stable Disposition: PACU Plan for aftercare: In patient
[2018-07-10] MEDS: fentaNYL 100 MCG/2 ML INJ 50 MCG IV ×2 (13:24→13:34)
[2018-07-10] MEDS: KETOROLAC 15 MG/ML VIAL IV ×2 (16:03→23:34)
[2018-07-10] MEDS: MORPHINE 4 MG/ML INJ IV (17:37)
[2018-07-10] MEDS: ENOXAPARIN 40 MG/0.4 ML SYRINGE SUBCUT (21:35)
[2018-07-10] MEDS: GABAPENTIN 300 MG CAPSULE PO (21:36)
[2018-07-10] MEDS: LATANOPROST 0.005% OPHTH 2.5 ML 1 DROPS EYE-BOTH (21:37)
--- NOTE | 2018-07-10 22:06 | PC.NURSE ---
urinating/blount pt unable to void by 2144. bladder scan revealed 215cc. notified of the same. Denies need for intervention currently. states if pt unable to void and becomes uncomfortable RN may insert blount to gravity (indwelling).
--- NOTE | 2018-07-10 23:50 | PC.NURSE ---
Addendum entered by Jory Severino R.N. 07/11/18 06:08: Up to [facility] this morning and voided 300cc dark nasima urine. Some blood noted on tissue but denies dysuria with urination. Provided with peripad. Had blount when in OR so will monitor and inform MD if increases in amount. BP improved this morning at 125/78. Original Note: Patient is alert and oriented. Breath sounds CTA with RA sat of 99%. HRR. BP is low at 98/59 but is asymptomatic so will continue to observe. Denies nausea. BT very hypoactive and denies flatus. Appropriately tender. Dressing to right abdomen is CDI. Incisional pain is 3/10 so medicated with Toradol. Able to turn self in bed. Has not yet been out of bed since surgery but states she normally uses a walker and is steady. Has not yet voided since surgery; MD is aware and patient states she does not feel uncomfortable. Wearing bilateral SCD's. Falll risk score is moderate and bed alarm is activated
[2018-07-11] VITALS (8 sets, daily range): BP systolic 107–125; BP diastolic 68–78; PULSE 66–86; RESP 16–18; TEMP 36.6–36.9; O2SAT 96–100; BMI 20.9
[2018-07-11] MEDS: ACETAMINOPHEN 325 MG TABLET 650 MG PO (06:00)
[2018-07-11] MEDS: PANTOPRAZOLE 20 MG TABLET PO (06:01)
[2018-07-11 07:37] LABS: Hematocrit 35.3 % (36-46); Hemoglobin 11.3 g/dL (12.0-16.0); Mean Corpuscular Volume 90.6 fL (80-100); Platelet Count 133 X10^3/uL (150-400)
[2018-07-11 07:39] LABS: Add Manual Diff / Slide Review YES; White Blood Cell Count 35.6 X10^3/uL (4.5-11.0)
[2018-07-11 07:43] LABS: Blood Urea Nitrogen 27 mg/dL (7-17); Calcium 9.6 mg/dL (8.4-10.2); Carbon Dioxide 21 mmol/L (22-32); Chloride 111 mmol/L (98-107); Estimated Glomerular Filt Rate 54.2 mL/min (>60); Glucose 106 mg/dL (80-110); HEMOLYSIS < 15 (0-50); Sodium 139 mmol/L (137-145)
[2018-07-11 07:49] LABS: Potassium 5.7 mmol/L (3.4-5.1)
[2018-07-11 08:28] LABS: Neutrophils Absolute Manual 15308 /uL (3000-5900); Poikilocytosis 1+; Smudge Cells 1+; Total Cells Counted 100
[2018-07-11] MEDS: GABAPENTIN 300 MG CAPSULE PO ×2 (08:57→20:57)
[2018-07-11] MEDS: ENOXAPARIN 40 MG/0.4 ML SYRINGE SUBCUT (08:57)
[2018-07-11] MEDS: SODIUM CHLORIDE 0.9% FLUSH 10 ML IV (08:57)
--- NOTE | 2018-07-11 09:15 | PT.IIE ---
Current Diagnoses Ileostomy status (07/10/18) Surgery Performed Operation Date: 07/10/18 09:45 Actual Procedures p Ileostomy Closure(Not Applicable) - Senthil Bright MD Surgical History (Last Updated 07/10/18 @ 10:06 by Senthil Bright MD) S/P small bowel resection (Acute) History of colonoscopy (Acute) Status post laparoscopic colectomy (Acute) Medical History (Last Reviewed 07/10/18 @ 10:05 by Senthil Bright MD) Breast cancer, left (Acute ~2012) COPD (chronic obstructive pulmonary disease) (Acute) Colostomy in place (Acute) Depression (Acute) History of UTI (Acute) Hypertension (Acute) Impaired vision (Acute) Lack of appetite (Acute) Mild protein-calorie malnutrition (Acute) Small bowel obstruction (Acute) Wears dentures (Acute) CLL (chronic lymphocytic leukemia) (Chronic) Erythrocytosis (Chronic) Glaucoma (Chronic) H/O: hysterectomy (Resolved) Mass of appendix (Resolved) Other bursal cyst, unspecified wrist (Resolved) Tubal ligation status (Resolved) Physical Therapy Inpatient Evaluation/Re-Eval M1 PT/OT-IP Prior Functional Status Start: 07/10/18 16:59 Freq: NEEDED Status: Active Protocol: Document 07/11/18 09:15 AB (Rec: 07/11/18 12:39 AB [id number]) Medical Review Prior Functional Status Medical History Reviewed Yes Communication able to make needs known Mobility and Gait pt stated that she is modified independent with all mobilities and ambulation using 4WW outdoors/long distances but does not use any AD indoors/at home. Social History Household Members spouse Living Arrangements House Number of Floors (Floors) One Floor Number of Stairs To Enter/Railing? 2 steps to enter without rails Home Environment High Toilet Walk in Shower Built-In Shower Seat Home Equipment Four Wheel Walker Hand Held Shower Grab Bars Near Toilet Grab Bars In Shower Employment Status Retired M2 PT-IP Current Condition Start: 07/10/18 16:59 Freq: NEEDED Status: Active Protocol: Document 07/11/18 09:15 AB (Rec: 07/11/18 12:39 AB [id number]) Physical Therapy Current Condition Current Condition Evaluation Date 07/11/18 Treatment Diagnosis s/p ileostomy closure wiht small bowel resection; generalized weakness Onset Date 07/10/18 Precautions Abdominal Surgery Precautions Log Roll Lifting Restrictions Gait Belt above Incisional Area M3 PT-IP Subjective Start: 07/10/18 16:59 Freq: NEEDED Status: Active Protocol: Document 07/11/18 09:15 AB (Rec: 07/11/18 12:39 AB [id number]) Subjective Physical Therapy Visit Type Type Initial Evaluation Visit Start Time 09:15 Visit Stop Time 09:55 Total Visit Minutes 40 Number of TAFE TEACHER Visits 0 Physical Therapy Visit Comments Patient Comments pt initially refusing but agreed to get out of bed. Therapy Pain Assessment Pain When Pain Assessed At Rest Pain Present Pain Present Pain Reported Location Abdomen Intensity 2 Scale Used Numeric (1 - 10) Pain Management Techniques Timing of Activity with Medications M4 PT-IP Mobility and Gait Start: 07/10/18 16:59 Freq: NEEDED Status: Active Protocol: Document 07/11/18 09:15 AB (Rec: 07/11/18 12:39 AB [id number]) PT-Bed Mobility Assessment Rolling Type of Rolling Log Rolling Level of Assist Maximal Assistance Supine to Sit Supine to Sit Maximum Assistance 1 Person Assistance Head of Bed Elevated Bedrails PT-Transfer Assessment Sit to and From Stand Sit to and from Stand Minimal Assistance 1 Person Assistance Use of Upper Extremities Equipment Transfer Assistive Device Gait Belt Front Wheeled Walker Orthotic/Prosthetic Devices or Brace: No Transfers Transfer Destination Toilet Transfer Technique pt ambulated to the toilet using FWW Transfer Ability Level of Assist Contact Guard Assistance 1 Person Assistance Gait Assessment Gait Gait Assistance Required: Contact Guard Assist Distance (Feet) 12 Able to Maintain Weight Bearing Status Yes During Gait Assistive Devices Assistive Device Gait Belt Front Wheeled Walker Orthotic/Prosthetic Devices or Brace: No Gait Deviations General Gait Pattern Decreased Stride Length Decreased Feet Clearance Factors Limiting Gait Function Factors Limiting Gait Function Decreased Activity Tolerance Decreased Strength Pain Poor Balance Poor Safety Awareness Comments Gait Comments pt ambulated to the toilet using FWW ~ 12 ft CGA. pt was able to maintain standing using FWW for support CGA while assisting with with brief management. pt ambulated from the toilet to the sink using FWW CGA ~ 10 ft and was able to maintain standing CGA while completing handwashing. pt refused further activities but agreed to sit up on chair. set pt up on chair. call light and table placed within reach. PT-Balance Assessment Sitting Balance and Reactions Static Sitting Balance Ability Good Dynamic Sitting Balance Ability Good Standing Balance and Reactions Static Standing Balance Ability Fair Dynamic Standing Balance Ability Fair Device Used FWW M5 PT-IP Objective Assessments Start: 07/10/18 16:59 Freq: NEEDED Status: Active Protocol: Document 07/11/18 09:15 AB (Rec: 07/11/18 12:39 AB [id number]) Orientation Orientation/Cognition Level of Alertness Alert Orientation Name Age Birthday Month Date Year Day of Week Place Situation Safety Awareness Understands Safety Issues Memory Description No Deficits Noted Gross Range of Motion Lower Extremity ROM Assessment Within Functional Limits Strength Lower Extremity Strength Assessment Bilaterally Impaired Hip 3+/5 Knee 3+/5 Sensation Assessment Sensation Gross Sensation WNL Muscle Tone Muscle Tone WNL Yes M6 PT-IP Treatment Start: 07/10/18 16:59 Freq: NEEDED Status: Active Protocol: Document 07/11/18 09:15 AB (Rec: 07/11/18 12:39 AB [id number]) Physical Therapy Treatment Education Education Provided Precautions Safety M7 PT-IP Assessment and Plan Start: 07/10/18 16:59 Freq: NEEDED Status: Active Protocol: Document 07/11/18 09:15 AB (Rec: 07/11/18 12:39 AB [id number]) PT Summary Assessment and Plan Potential Rehabilitation Potential Fair Status of Condition at Evaluation Evolving Summary Impairments Pain ROM Strength Balance Coordination Sensation Tone Cognition Bed Mobility Transfers Gait Activity Tolerance Assessment Summary pt requiring one person assist with mobility and will likely progress during hospital stay . will conduct caregiver training and stair climbing training and if able to complete safely, pt may go home when medically stable. Goals Bed Mobility Goal Standby Assistance Transfer Goal Standby Assistance Four Wheeled Walker Gait Goal Standby Assistance Four Wheel Walker Gait Distance 150 Other Goals up/down 2 step without rails CGA Days to Meet Goals 5 Frequency of Treatment Frequency Of Treatment Once a Day Treatment Plan Physical Therapy Treatment Plan Bed Mobility Training Transfer Training Gait Training Therapeutic Exercise Balance Retraining Discharge Planning Hot or Cold Pack Neuromuscular Re-ed Coordination Retraining Manual Therapy Other Recommendations and Next Treatment caregiver training, bed Focus mobility, transfers, ambulation Recommendations To Nursing Amount of Assist Needed 1 Person Assist Discharge Recommendations PT Discharge Recommendations Home with 14/01 Assist Outpatient PT
[2018-07-11] MEDS: DEXTROSE 5%-0.45% NS 1,000 ML 84 ML IV ×2 (09:16→21:29)
--- NOTE | 2018-07-11 14:29 | CM.IDA ---
Discharge Planning/Care Management CM Discharge Assessment Start: 07/11/18 14:13 Freq: Status: Active Protocol: Document 07/11/18 14:13 [email or web address] (Rec: 07/11/18 14:29 [email or web address] [id number]) Discharge Planning Assessment Assigned Media Planner ANGEL Griggs DPOA/Assigned Designee Name Cris Hernandez, spouse Contact Information [phone] or [phone] Advance Directives? Yes: requested from Advance Directives on File No History Provided By Medical Record Has Patient been admitted in last 30 Yes days? Comment Admission 06.02.18-06.10.18 Prior Living Arrangements House Household Members spouse Type of transporation used prior to Relies on Others admit Independent with ADL's Yes: Modified indp. No AD at home, FWW outdoors Is patient alert and oriented? Yes Comment Assist w/ higher ADLs, very supportive spouse. Barriers to Discharge No Comment Likely home. Attempted DCP assessment w/pt and spouse a few times today but pt busy w/ other members of the multidisciplinary team. Reviewed chart. 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 Pt lives w/spouse, PMH includes CLL, COPD and s/p colostomy. Pt admitted for ileostomy closure. PT eval indicates pt is weak but likely will get back to her functional baseline before DC. Therapy team will conduct cg training w/supportive spouse Cris. P: DC home w/spouse and close outpt f/u once medically cleared. Discharge Plan Home Transportation Arrangement Spouse Referrals Initiated None needed Review Status In Process
--- NOTE | 2018-07-11 14:30 | PC.NURSE ---
Pt up to bathroom with PT - voiding and passing flatus. Dressing to stoma site taken down but packing left in tact as it was difficult to remove and sanguinous fluid was seeping around it. Gauze pads replaced with abd pad on top and secured with tape. Pt has been refusing analgesia stating the pain is not that bad. Tolerated clear liquid diet. IVF infusing as ordered.
--- NOTE | 2018-07-11 17:39 | PC.NURSE ---
Evening shift 1530: Assumed care of pt with safe hand off. Safety checks done. Pt denies pain at this time and a/ox4. Off going nurse checked dressing at change of shift. Small amount of sero/sang fluid of dressing. Marked and dated. 1649: Pt ambulated to bathroom with SBA. Pt has pain when transferring out of bed. Education done on splinting with a pillow when getting up and sitting down.
--- NOTE | 2018-07-11 20:07 | P.PN_ITS ---
Subjective Date Patient Seen: 07/11/18 Time Patient Seen: 19:19 Interval history: The patient is post ileostomy closure. Her diet was on expectedly advanced supposedly a bur on order by me. If that is the case it was in clinic on a computer box that I had missed. In any event she was changed back to a clear liquid diet. She says she is feeling pretty well. There dressing in the right lower quadrant was changed. Exam Vital Signs (past 8 hours): - 07/11/18 14:00 07/11/18 15:57 Temperature 98.3 F 98.1 F Pulse Rate 73 86 Respiratory Rate 16 18 Blood Pressure 107/69 122/73 Pulse Oximetry 100 100 Oxygen Delivery Method Room Air Oxygen Flow Rate 0 Narrative Exam Narrative: Her abdomen is a little distended. Her lungs are clear to auscultation. Heart regular rate and rhythm with a fairly soft cardiac sounds. She has bleeding at heard wound site which was just changed. I took all the gauze out. This a little skin edges user that I am hoping pressure will stop. I replaced it with a saline wet to dry dressing and taped down Objective Labs Result Diagrams: 07/11/18 06:28 07/11/18 06:28 Labs: Laboratory Results - last 24 hr 07/11/18 07/11/18 06:28 06:28 WBC 35.6 H* RBC 3.90 L Hgb 11.3 L Hct 35.3 L MCV 90.6 MCH 29.0 MCHC 32.0 RDW 17.0 H Plt Count 133 L Neut % (Auto) Not Reportable Lymph % (Auto) Not Reportable Addison % (Auto) Not Reportable Eos % (Auto) Not Reportable Baso % (Auto) Not Reportable Lymph # (Auto) Not Reportable Addison # (Auto) Not Reportable Baso # (Auto) Not Reportable Total Counted 100 Seg Neutrophils % 43.0 D Lymphocytes % (Manual) 56.0 H Monocytes % (Manual) 1.0 L Neutrophils # (Manual) 51356 H Smudge Cells 1+ H RBC Morphology Not Reportable Poikilocytosis 1+ H Sodium 139 Potassium 5.7 H Chloride 111 H Carbon Dioxide 21 L BUN 27 H Creatinine 1.00 Estimated GFR 54.2 L BUN/Creatinine Ratio 27.0 H Glucose 106 Calcium 9.6 Assessment & Plan Post-op Postoperative Procedures Operation Date: 07/10/18 09:45 Actual Procedures Side Surgeon p Ileostomy Closure Not Applicable Senthil Bright MD Postoperative day: 2 Postoperative status narrative: Little bit of bleeding from the ostomy site. Otherwise she is doing well. No unusual fever chills. She feels a little distended so asked her to back off on the liquids for right now. Postoperative plan narrative: Wound care and observation to continue
[2018-07-11] MEDS: LATANOPROST 0.005% OPHTH 2.5 ML 1 DROPS EYE-BOTH (20:57)
[2018-07-12] VITALS (10 sets, daily range): BP systolic 119–138; BP diastolic 69–82; PULSE 67–91; RESP 16–21; TEMP 36.3–37.4; O2SAT 96–100
[2018-07-12] MEDS: PANTOPRAZOLE 20 MG TABLET PO (06:02)
[2018-07-12] MEDS: GABAPENTIN 300 MG CAPSULE PO ×2 (09:50→21:48)
[2018-07-12] MEDS: ENOXAPARIN 40 MG/0.4 ML SYRINGE SUBCUT (09:50)
--- NOTE | 2018-07-12 10:41 | PC.NURSE ---
Pt reported IV came out while she was eating breakfast. Area cleaned and band aid applied. Surgeon to be advised when he rounds. Sitting up in bed reading the newspaper. Taking fluids well. Refusing to get up to chair, stating firmly I want to wait until my doctor gets here, I don't want to miss him Reassured that she would not miss him but pt adamant. Also wanted her dressing change to be done by surgeon - I know he will be here in the morning and will want to see it. Dressing is CDI at this time. Pt denies need for pain medication but admitted it hurts at times and describes it as cramping. Pt also refused to use IS - stating she will take deep breaths and does not need one. Explained reasons for using IS. O2 sats = 98$ on RA. Denies passing flatus at this time.
--- NOTE | 2018-07-12 11:35 | PT.IPTN ---
Current Diagnoses Ileostomy status (07/10/18) Surgery Performed Operation Date: 07/10/18 09:45 Actual Procedures p Ileostomy Closure(Not Applicable) - Senthil Bright MD Physical Therapy Treatment Note M2 PT-IP Current Condition Start: 07/10/18 16:59 Freq: NEEDED Status: Active Protocol: Document 07/11/18 09:15 AB (Rec: 07/11/18 12:39 AB [id number]) Physical Therapy Current Condition Current Condition Evaluation Date 07/11/18 Treatment Diagnosis s/p ileostomy closure wiht small bowel resection; generalized weakness Onset Date 07/10/18 Precautions Abdominal Surgery Precautions Log Roll Lifting Restrictions Gait Belt above Incisional Area M3 PT-IP Subjective Start: 07/10/18 16:59 Freq: NEEDED Status: Active Protocol: Document 07/12/18 11:35 AB (Rec: 07/12/18 13:14 AB [id number]) Subjective Physical Therapy Visit Type Visit Start Time 11:35 Visit Stop Time 12:20 Total Visit Minutes 45 Number of SKETCHER Visits 0 Physical Therapy Visit Comments Patient Comments pt requested to use the toilet Therapy Pain Assessment Pain Present Pain Present Pain Reported Location Abdomen Scale Used pain scale not stated Pain Management Techniques Timing of Activity with Medications M4 PT-IP Mobility and Gait Start: 07/10/18 16:59 Freq: NEEDED Status: Active Protocol: Document 07/12/18 11:35 AB (Rec: 07/12/18 13:14 AB [id number]) PT-Bed Mobility Assessment Supine to Sit Supine to Sit Maximum Assistance 1 Person Assistance Head of Bed Elevated Bedrails Scooting Scooting to Edge of Bed Maximum Assistance PT-Transfer Assessment Sit to and From Stand Sit to and from Stand Contact Guard Assistance Equipment Transfer Assistive Device Gait Belt Front Wheeled Walker Orthotic/Prosthetic Devices or Brace: No Transfers Transfer Destination Toilet Transfer Technique pt ambulated to the toilet using FWW Transfer Ability Level of Assist Contact Guard Assistance Comments Mobility Comments pt ambulated from bedside to the toilet using FWW CGA. pt was able to maintain standing using FWW for support CGA while assisted with brief management. pt ambulated from the toilet to the sink CGA using FWW ~ 10 ft and was able to maintain standing CGA using counter for support while completing handwashing and self care/ADLs. Gait Assessment Gait Gait Assistance Required: Contact Guard Assist Distance (Feet) 150 Able to Maintain Weight Bearing Status Yes During Gait Assistive Devices Assistive Device Gait Belt Front Wheeled Walker Orthotic/Prosthetic Devices or Brace: No Gait Deviations General Gait Pattern Decreased Stride Length Decreased Feet Clearance Flexed Trunk Factors Limiting Gait Function Factors Limiting Gait Function Decreased Activity Tolerance Decreased Strength Pain Poor Balance M5 PT-IP Objective Assessments Start: 07/10/18 16:59 Freq: NEEDED Status: Active Protocol: Document 07/11/18 09:15 AB (Rec: 07/11/18 12:39 AB [id number]) Orientation Orientation/Cognition Level of Alertness Alert Orientation Name Age Birthday Month Date Year Day of Week Place Situation Safety Awareness Understands Safety Issues Memory Description No Deficits Noted Gross Range of Motion Lower Extremity ROM Assessment Within Functional Limits Strength Lower Extremity Strength Assessment Bilaterally Impaired Hip 3+/5 Knee 3+/5 Sensation Assessment Sensation Gross Sensation WNL Muscle Tone Muscle Tone WNL Yes M6 PT-IP Treatment Start: 07/10/18 16:59 Freq: NEEDED Status: Active Protocol: Document 07/12/18 11:35 AB (Rec: 07/12/18 13:14 AB [id number]) Physical Therapy Treatment Education Education Provided Precautions Safety M7 PT-IP Assessment and Plan Start: 07/10/18 16:59 Freq: NEEDED Status: Active Protocol: Document 07/12/18 11:35 AB (Rec: 07/12/18 13:14 AB [id number]) PT Summary Assessment and Plan Potential Rehabilitation Potential Good Summary Impairments Pain ROM Strength Balance Coordination Bed Mobility Transfers Gait Activity Tolerance Progress Towards Goals Progressing Toward Goals Assessment Summary pt requiring one person assist with mobility and able to tolerate more activities today . pt plans to go home with spouse to assist her. caregiver training and stair climbing training needs to be completed prior to d/c. Goals Bed Mobility Goal Standby Assistance Transfer Goal Standby Assistance Four Wheeled Walker Gait Goal Standby Assistance Four Wheel Walker Gait Distance 150 Other Goals up/down 2 step without rails CGA Days to Meet Goals 5 Frequency of Treatment Frequency Of Treatment Once a Day Treatment Plan Physical Therapy Treatment Plan Bed Mobility Training Transfer Training Gait Training Therapeutic Exercise Balance Retraining Discharge Planning Hot or Cold Pack Neuromuscular Re-ed Coordination Retraining Manual Therapy Other Recommendations and Next Treatment caregiver training, bed Focus mobility, transfers, ambulation Recommendations To Nursing Amount of Assist Needed 1 Person Assist Discharge Recommendations PT Discharge Recommendations Home with 24/7 Assist Outpatient PT
--- NOTE | 2018-07-12 13:40 | PC.NURSE ---
Pt had small loose BM, denied cramping or associated pain. Diet advanced to full liquid diet and IV fliuids not needed at this time. IV remains dc'd at this time.
--- NOTE | 2018-07-12 14:56 | PC.NURSE ---
Dressing to abdomen changed: wet saline compresses applied first, then dry abd pad applied and secured with tape. Pt would not allow removal of gauze below surface of abdomen - complained that it was too tender. Serosang-soaked gauze was wetted with saline but did not lift off when mild pressure applied.Pt insisted that it not be removed at this time. Pt calm and otherwise cooperative. Declined offer of analgesia,
--- NOTE | 2018-07-12 16:30 | PM.PNPO.1 ---
Subjective Date Patient Seen: 07/12/18 Time Patient Seen: 12:00 Interval history: Post closure of an ileostomy. Patient is feeling well. Not really having any abdominal pain she said. Passing gas and had a bowel movement. Exam Vital Signs (past 8 hours): - 07/12/18 10:35 07/12/18 12:00 Temperature 97.3 F L Pulse Rate 80 Respiratory Rate 18 Blood Pressure 138/80 Pulse Oximetry 98 99 Oxygen Delivery Method Room Air Oxygen Flow Rate 0 Narrative Exam Narrative: Lungs are clear to auscultation. Heart regular rate and rhythm without murmur gallop. Abdomen is soft without masses. Dressing intact. Mild tenderness the right lower quadrant where they incision is. Objective Labs Result Diagrams: 07/11/18 06:28 07/11/18 06:28 Assessment & Plan Post-op Postoperative Procedures Operation Date: 07/10/18 09:45 Actual Procedures Side Surgeon p Ileostomy Closure Not Applicable Snethil Bright MD Postoperative status: doing well Postoperative plan narrative: Will advance diet. May close wound tomorrow.
[2018-07-12] MEDS: LATANOPROST 0.005% OPHTH 2.5 ML 1 DROPS EYE-BOTH (21:48)
[2018-07-13] VITALS (9 sets, daily range): BP systolic 110–116; BP diastolic 67–75; PULSE 76–92; RESP 16–20; TEMP 36.7–37; O2SAT 96–100
[2018-07-13] MEDS: PANTOPRAZOLE 20 MG TABLET PO (05:34)
[2018-07-13] MEDS: ACETAMINOPHEN 325 MG TABLET 650 MG PO ×2 (05:37→14:14)
--- NOTE | 2018-07-13 05:55 | PC.NURSE ---
Addendum entered by Clarissa Ewing R.N. 07/13/18 07:08: wet to dry dressing changed at 0700 Original Note: Pt alert and oriented. pt requested tylenol around 0530 for pain 10/01. Shadow drainage noted on her dressing, but pt refused to be changed. Pt tolerating full liquid diet. pt had 1 small loose stool for police officer booking. pt currently sitting up. call light in reach. bed alarm active.
[2018-07-13 06:17] LABS: Hematocrit 34.1 % (36-46); Hemoglobin 11.1 g/dL (12.0-16.0); Mean Corpuscular HGB Conc 32.6 % (30-36); Mean Corpuscular Hemoglobin 29.5 PG (26-34); Mean Corpuscular Volume 90.4 fL (80-100); Platelet Count 141 X10^3/uL (150-400); Red Blood Cell Count 3.78 X10^6/uL (4.0-5.2); Red Cell Distribution Width 17.7 % (11.6-14.8); White Blood Cell Count 27.2 X10^3/uL (4.5-11.0)
[2018-07-13 06:32] LABS: BUN Creatinine Ratio 18.8 (6-22); Blood Urea Nitrogen 15 mg/dL (7-17); Calcium 8.6 mg/dL (8.4-10.2); Carbon Dioxide 24 mmol/L (22-32); Chloride 108 mmol/L (98-107); Estimated Glomerular Filt Rate > 60.0 mL/min (>60); Glucose 77 mg/dL (80-110); HEMOLYSIS < 15 (0-50); Magnesium 1.9 mg/dL (1.6-2.3); Potassium 3.7 mmol/L (3.4-5.1); Sodium 138 mmol/L (137-145)
[2018-07-13 06:39] LABS: Add Manual Diff / Slide Review YES
[2018-07-13 07:24] LABS: Anisocytosis 1+; Neutrophils Absolute Manual 6256 /uL (3000-5900); Smudge Cells 3+; Total Cells Counted 100
--- NOTE | 2018-07-13 08:52 | CM.DPC ---
DCP Cont: Per PT, recommending likely safe d/c home with 14/01 spouse assist and outpt PT but still needing to do caregiver and stair training prior to d/c. SW met bedside with pt and explained role and inquired if spouse would be bedside today and she states that she anticipates he will be by later today sometime. Pt confirms that she still plans to d/c home and that her spouse would be agreeable to be present for caregiver training with PT. Pt states that MD told her that she would have another procedure prior to d/c and therefore likely here another couple days and SW will confirm this information for ongoing d/c planning. Plan: SW to follow for likely pt d/c home with spouse and outpt PT after caregiver and stair training is completed and SW to confirm d/c plan when spouse is bedside to determine if any further needs. ANGEL Bernardo
[2018-07-13] MEDS: ENOXAPARIN 40 MG/0.4 ML SYRINGE SUBCUT (09:18)
[2018-07-13] MEDS: GABAPENTIN 300 MG CAPSULE PO ×2 (09:18→20:39)
--- NOTE | 2018-07-13 11:11 | PC.NURSE ---
Addendum entered by Timothy Clinton R.N. 07/13/18 14:58: in to visit. Dr. Luis in to see Pt and close incision. Original Note: Pt alert and oriented, quietly conversant. Offers no overt c/o though moves slowly to BSC. guards abdomen well. Restful. Calls appropriately.
--- NOTE | 2018-07-13 14:39 | PT.IPTN ---
Current Diagnoses Ileostomy status (07/10/18) Surgery Performed Operation Date: 07/10/18 09:45 Actual Procedures p Ileostomy Closure(Not Applicable) - Senthil Bright MD Physical Therapy Treatment Note M2 PT-IP Current Condition Start: 07/10/18 16:59 Freq: NEEDED Status: Active Protocol: Document 07/11/18 09:15 AB (Rec: 07/11/18 12:39 AB [id number]) Physical Therapy Current Condition Current Condition Evaluation Date 07/11/18 Treatment Diagnosis s/p ileostomy closure wiht small bowel resection; generalized weakness Onset Date 07/10/18 Precautions Abdominal Surgery Precautions Log Roll Lifting Restrictions Gait Belt above Incisional Area M3 PT-IP Subjective Start: 07/10/18 16:59 Freq: NEEDED Status: Active Protocol: Document 07/13/18 14:20 CLB (Rec: 07/13/18 14:38 CLB [id number]) Subjective Physical Therapy Visit Type Type Patient Refusal Notes Pt refused therapy session this morning and again this afternoon. Will check with pt tomorrow in hopes she will be agreeable to work with PT. M4 PT-IP Mobility and Gait Start: 07/10/18 16:59 Freq: NEEDED Status: Active Protocol: Document 07/12/18 11:35 AB (Rec: 07/12/18 13:14 AB [id number]) PT-Bed Mobility Assessment Supine to Sit Supine to Sit Maximum Assistance 1 Person Assistance Head of Bed Elevated Bedrails Scooting Scooting to Edge of Bed Maximum Assistance PT-Transfer Assessment Sit to and From Stand Sit to and from Stand Contact Guard Assistance Equipment Transfer Assistive Device Gait Belt Front Wheeled Walker Orthotic/Prosthetic Devices or Brace: No Transfers Transfer Destination Toilet Transfer Technique pt ambulated to the toilet using FWW Transfer Ability Level of Assist Contact Guard Assistance Comments Mobility Comments pt ambulated from bedside to the toilet using FWW CGA. pt was able to maintain standing using FWW for support CGA while assisted with brief management. pt ambulated from the toilet to the sink CGA using FWW ~ 10 ft and was able to maintain standing CGA using counter for support while completing handwashing and self care/ADLs. Gait Assessment Gait Gait Assistance Required: Contact Guard Assist Distance (Feet) 150 Able to Maintain Weight Bearing Status Yes During Gait Assistive Devices Assistive Device Gait Belt Front Wheeled Walker Orthotic/Prosthetic Devices or Brace: No Gait Deviations General Gait Pattern Decreased Stride Length Decreased Feet Clearance Flexed Trunk Factors Limiting Gait Function Factors Limiting Gait Function Decreased Activity Tolerance Decreased Strength Pain Poor Balance M5 PT-IP Objective Assessments Start: 07/10/18 16:59 Freq: NEEDED Status: Active Protocol: Document 07/11/18 09:15 AB (Rec: 07/11/18 12:39 AB [id number]) Orientation Orientation/Cognition Level of Alertness Alert Orientation Name Age Birthday Month Date Year Day of Week Place Situation Safety Awareness Understands Safety Issues Memory Description No Deficits Noted Gross Range of Motion Lower Extremity ROM Assessment Within Functional Limits Strength Lower Extremity Strength Assessment Bilaterally Impaired Hip 3+/5 Knee 3+/5 Sensation Assessment Sensation Gross Sensation WNL Muscle Tone Muscle Tone WNL Yes M6 PT-IP Treatment Start: 07/10/18 16:59 Freq: NEEDED Status: Active Protocol: Document 07/12/18 11:35 AB (Rec: 07/12/18 13:14 AB [id number]) Physical Therapy Treatment Education Education Provided Precautions Safety M7 PT-IP Assessment and Plan Start: 07/10/18 16:59 Freq: NEEDED Status: Active Protocol: Document 07/12/18 11:35 AB (Rec: 07/12/18 13:14 AB [id number]) PT Summary Assessment and Plan Potential Rehabilitation Potential Good Summary Impairments Pain ROM Strength Balance Coordination Bed Mobility Transfers Gait Activity Tolerance Progress Towards Goals Progressing Toward Goals Assessment Summary pt requiring one person assist with mobility and able to tolerate more activities today . pt plans to go home with spouse to assist her. caregiver training and stair climbing training needs to be completed prior to d/c. Goals Bed Mobility Goal Standby Assistance Transfer Goal Standby Assistance Four Wheeled Walker Gait Goal Standby Assistance Four Wheel Walker Gait Distance 150 Other Goals up/down 2 step without rails CGA Days to Meet Goals 5 Frequency of Treatment Frequency Of Treatment Once a Day Treatment Plan Physical Therapy Treatment Plan Bed Mobility Training Transfer Training Gait Training Therapeutic Exercise Balance Retraining Discharge Planning Hot or Cold Pack Neuromuscular Re-ed Coordination Retraining Manual Therapy Other Recommendations and Next Treatment caregiver training, bed Focus mobility, transfers, ambulation Recommendations To Nursing Amount of Assist Needed 1 Person Assist Discharge Recommendations PT Discharge Recommendations Home with 14/01 Assist Outpatient PT
--- NOTE | 2018-07-13 16:27 | PM.PNPO.1 ---
Subjective Date Patient Seen: 07/13/18 Time Patient Seen: 14:27 Interval history: Patient feels pretty good today. So she is having bowel movements and passing flatus. Exam Vital Signs (past 8 hours): - 07/13/18 11:05 07/13/18 15:43 Temperature 98.4 F 98.4 F Pulse Rate 85 86 Respiratory Rate 20 19 Blood Pressure 110/70 115/75 Pulse Oximetry 98 99 Oxygen Delivery Method Room Air Oxygen Flow Rate 0 Narrative Exam Narrative: Operative no apparent distress. Lungs are clear. Abdomen is soft nontender. The wound looks fine. Objective Labs Result Diagrams: 07/13/18 06:02 07/13/18 06:02 Labs: Laboratory Results - last 24 hr 07/13/18 07/13/18 06:02 06:02 WBC 27.2 H RBC 3.78 L Hgb 11.1 L Hct 34.1 L MCV 90.4 MCH 29.5 MCHC 32.6 RDW 17.7 H Plt Count 141 L Neut % (Auto) Not Reportable Lymph % (Auto) Not Reportable [place] % (Auto) Not Reportable Eos % (Auto) Not Reportable Baso % (Auto) Not Reportable Lymph # (Auto) Not Reportable [place] # (Auto) Not Reportable Baso # (Auto) Not Reportable Total Counted 100 Seg Neutrophils % 22.0 L Band Neutrophils % 1.0 L Lymphocytes % (Manual) 60.0 H Monocytes % (Manual) 5.0 Eosinophils % (Manual) 1.0 L Basophils % (Manual) 11.0 H Neutrophils # (Manual) 6256 H Smudge Cells 3+ H D RBC Morphology Not Reportable Anisocytosis 1+ H Sodium 138 Potassium 3.7 D Chloride 108 H Carbon Dioxide 24 BUN 15 Creatinine 0.80 Estimated GFR > 60.0 BUN/Creatinine Ratio 18.8 Glucose 77 L Calcium 8.6 Magnesium 1.9 Assessment & Plan Post-op Postoperative Procedures Operation Date: 07/10/18 09:45 Actual Procedures Side Surgeon p Ileostomy Closure Not Applicable Senthil Bright MD Postoperative day: 3 Postoperative status: doing well Postoperative plan narrative: I tied our sutures bringing the wound together nicely. The skin edges oozing still. It is rather slow but I am going to stop her nonsteroidals and also her Lovenox because of this. Advanced her diet. Probable discharge tomorrow.
--- NOTE | 2018-07-13 19:04 | PC.NURSE ---
dressing change 1840 dressing to surgical closure site changed as previous gauze dressing was saturated. wound well approximated with sutures. no current drainage noted. new 2x2 gauze and paper tape dressing applied.
[2018-07-13] MEDS: LATANOPROST 0.005% OPHTH 2.5 ML 1 DROPS EYE-BOTH (20:39)
[2018-07-14] VITALS: O2SAT 97
[2018-07-14 00:30] VITALS: BP 125/80; PULSE 88; RESP 15; TEMP 36.4; O2SAT 97
[2018-07-14 05:36] VITALS: BP 109/66; PULSE 93; RESP 15; TEMP 36.9; O2SAT 98
[2018-07-14] MEDS: PANTOPRAZOLE 20 MG TABLET PO (06:21)
[2018-07-14] MEDS: HYDROCODONE/ACET 5/325 TABLET 1 TAB PO (06:46)
[2018-07-14 07:55] VITALS: BP 102/67; PULSE 78; RESP 16; TEMP 36.5; O2SAT 98
[2018-07-14] MEDS: GABAPENTIN 300 MG CAPSULE PO (08:23)
[2018-07-14 08:30] VITALS: O2SAT 98
--- NOTE | 2018-07-14 09:30 | PT.IPNOTE ---
PT POC update Per ROUTING EQUIPMENT TENDER, pt declined to participate in a morning session. Agreeable to have PT check in during the afternoon. Pt might dc home today. Kailey Taylor, PT, DPT
[2018-07-14 10:56] VITALS: BP 104/68; PULSE 91; RESP 20; TEMP 36.9; O2SAT 98
--- NOTE | 2018-07-14 12:56 | PT.IPTN ---
Current Diagnoses Ileostomy status (07/10/18) Surgery Performed Operation Date: 07/10/18 09:45 Actual Procedures p Ileostomy Closure(Not Applicable) - Senthil Bright MD Physical Therapy Treatment Note Notes Pt is discharging home today. Stair training/caregiver training complete. There are no additional acute PT goals/ needs, will sign off.
--- NOTE | 2018-07-14 13:05 | CM.DPC ---
DCP/continued: Reviewed chart. It is anticipated that patient will d/c home today. Met briefly with patient and she reports that she is ready to return home today. Patient resides with supportive spouse in [place]. Prior to admit patient had [facility]. Spoke patient and she believes that she does not need continued HH visits. Placed call to Tori at [facility], she reports that they will f/u with patient and spouse once they arrive home. Reviewed therapy notes reporting home with outpatient f/u okay and caregiver support okay. Home today. ANGEL Clement Discharge Planning/Care Management CM Discharge Assessment Start: 07/11/18 14:13 Freq: Status: Active Protocol: Document 07/11/18 14:13 [email or web address] (Rec: 07/11/18 14:29 [email or web address] [id number]) Discharge Planning Assessment Assigned Chemistry Research Assistant ANGEL Griggs DPOA/Assigned Designee Name Cris Hernandez, spouse Contact Information [phone] or [phone] Advance Directives? Yes: requested from Advance Directives on File No History Provided By Medical Record Has Patient been admitted in last 30 Yes days? Comment Admission 06.02.18-06.10.18 Prior Living Arrangements House Household Members spouse Type of transporation used prior to Relies on Others admit Independent with ADL's Yes: Modified indp. No AD at home, FWW outdoors Is patient alert and oriented? Yes Comment Assist w/ higher ADLs, very supportive spouse. Barriers to Discharge No Comment Likely home. Attempted DCP assessment w/pt and spouse a few times today but pt busy w/ other members of the multidisciplinary team. Reviewed chart. Pt familiar to this BASKET GRADER from prior admission . Pt lives w/spouse, PMH includes CLL, COPD and s/p colostomy. Pt admitted for ileostomy closure. PT eval indicates pt is weak but likely will get back to her functional baseline before DC. Therapy team will conduct cg training w/supportive spouse Cris. P: DC home w/spouse and close outpt f/u once medically cleared. Discharge Plan Home Transportation Arrangement Spouse Referrals Initiated None needed Review Status In Process Document 07/14/18 13:05 KJS (Rec: 07/14/18 13:05 KJS [id number]) Discharge Planning Assessment Assigned Chemistry Research Assistant Shelbie Michelle, BASKET GRADER DPOA/Assigned Designee Name Cris Hernandez, spouse Contact Information [phone] or [phone] Advance Directives? Yes: requested from Advance Directives on File No History Provided By Medical Record Has Patient been admitted in last 30 Yes days? Comment Admission 06.02.18-06.10.18 Prior Living Arrangements House Household Members spouse Type of transporation used prior to Relies on Others admit Independent with ADL's Yes: Modified indp. No AD at home, FWW outdoors Is patient alert and oriented? Yes Comment Assist w/ higher ADLs, very supportive spouse. Barriers to Discharge No Comment Likely home. Attempted DCP assessment w/pt and spouse a few times today but pt busy w/ other members of the multidisciplinary team. Reviewed chart. Pt familiar to this BASKET GRADER from prior admission . Pt lives w/spouse, PMH includes CLL, COPD and s/p colostomy. Pt admitted for ileostomy closure. PT eval indicates pt is weak but likely will get back to her functional baseline before DC. Therapy team will conduct cg training w/supportive spouse Cris. P: DC home w/spouse and close outpt f/u once medically cleared. Discharge Plan Home Transportation Arrangement Spouse Referrals Initiated None needed Review Status In Process Pre-Anesthesia Assessment Start: 07/04/18 12:39 Freq: Status: Complete Protocol: Document 07/04/18 12:39 [facility] (Rec: 07/04/18 12:48 [facility] [id number]) Pre-Anesthesia Assessment Patient Also Known As (MOUNIKA) Maria Dolores Patient Information Reviewed Via Chart Review Phone Assessment Assessment Completed With Patient Primary Care Provider Sayra Russo Seen Specialist in Last 12 Months Yes Specialist Seen General surgeon Primary Language Venezuelan Satellite Dish Installer Required No Height 165.1 cm Weight 52.617 kg Body Mass Index (BMI) 19.3 Hearing Ability Normal Visual Impairment Partially Limited Visual Assist Glasses Dentition Type Partial- Upper & Lower Barriers to Learning Visual Other Aids No Hx Anesthesia Reactions No Hx Family Anesthesia Reaction No Hx Malignant Hyperthermia No Hx Blood Transfusions No Hx Blood Transfusion Reaction No Anesthesia Review Requested No Groundman/Lineman No alcohol intake current alcohol intake frequency 0-2 drinks per day Smoking Status Former smoker Tobacco type cigarettes Has it been 2 weeks or less since No patient quit smoking how long ago did patient quit smoking 06/10 Smoking pack-years 20 Substance Use Type does not use Pain Present Denied Pain Musculoskeletal Symptoms Difficulty Walking Muscle Weakness History of Falling (Recent or History of No ) Patient is completely paralyzed or No completely immobile Ambulatory Aid Furniture Prosthesis or Orthotic Device Front Wheel Walker Wheelchair Gait/Transferring Weak Comment No aids in the house Is patient on oxygen? No Does patient have CARABALLO/SOB Yes Hx Sleep Apnea No CPAP/BIPAP use not prescribed Will Bring CPAP/BIPAP DOS No Currently Taking a Beta Ambrocio No Can You Climb a Flight of Stairs Without No SOB Hx Chest Pain No Hx SOB Yes Hx Syncope or Dizziness No Anti-Coagulant Therapy Yes: Baby Aspirin Has a Bank Officer No Cardiac Testing No Hx Pacemaker/ICD No Pacemaker Rep Required? No Cardiac Clearance Received Not Applicable Diet Type At Home Regular dysphagia No Bladder Pattern Nocturia Urinary Catheter Present No Hx Urinary Self Catheterization No Diabetes No Patient No Lactating No Hx Drug Resistant Organism No Presence of External or Internal Medical Yes: Colostomy bag Devices Have you traveled outside the [facility] in the last 30 days? Marital Status Lives With spouse Prior Living Arrangements House Number of Floors (Floors) One Floor Number of Stairs To Enter/Railing? 2 stairs into house, no rail Support System Spouse Does the Patient Have Assistance After Yes Surgery Patient Discharge Plan Description Return Home Comment Spouse is her caregiver Feels Safe in Current Environment Yes Been Physically Hurt or Threatened By a No Person in Current Environment Do you have thoughts of harming yourself None or others? Are you currently considering suicide? No Do you have a plan to hurt yourself or No Plan others? Do You Have Any Spiritual Beliefs That No May Affect Your HC Choices? Do You Have Any Cultural Practices That No May Affect Your HC Choices? Spiritual Referral None Who Can We Speak to About Patient's Care Friends & Family Identifying Code for Release of Patient Declined Information Health Care Proxy/Next of Kin - Ned Cazares Health Care Proxy Emergency Contact Name Ned Cazares Emergency Contact Advance Directives? Yes: requested from Advance Directives on File No Requested Patient Bring Advanced Yes Directives DOS Power of Drying Oven Attendant Yes Power of Drying Oven Attendant Name Ned Cazares Power of Drying Oven Attendant Comment Note of 06/02/18 lists Mackenzie Jessica (friend as designated DPOA) PAC Instructions Assistance for 24 hours post- op Do not shave/clip surgical site Durable medical equipment Medications to take/avoid Nasal antibiotic No ETOH/petroleum product on skin DOS NPO Ortho class Pre-op antibiotic Pre-surgical wash Sensory aids Sturdy shoes/comfortable clothes Do not bring valuables and remove jewelry Comment Check-in [phone]
--- NOTE | 2018-07-14 13:18 | PM.DS.1 ---
History of Present Illness Chief complaint: [id number] Narrative: Patient is a woman here for closure of an ileostomy. This was placed due to an obstruction in the perioperative. From a stricture that was quite unusual in her distal ileum to her anastomosis. She has not tolerated her ileostomy very well and had a period of dehydration and malnutrition. That has been overcome and she is here now for closure. She recently had a evaluation of the area between her ostomy and says colon and there was found to be no stricture and no problem with her colon. She underwent an outpatient bowel prep that included oral antibiotics. Discharge Providers Date of admission: 07/10/18 08:43 Primary care physician: Sayra Russo MD Consults: 07/10/18 14:45 Consult to Discharge Planning Routine Comment: Consult to Physical Therapy Evaluate & Treat Comment: Physician Instructions: Evaluate and Treat 07/10/18 15:32 Consult to Dietitian, Adult Routine Comment: Reason For Exam: assessed at high risk, recent weight loss 07/13/18 16:31 Consult to Discharge Planning Routine Comment: Probable discharge tomorrow Saturday the to Discharge provider: Senthil Bright MD Discharge Date: 07/14/18 Summary Discharge Diagnosis: Ileostomy closed during this admission with resection and primary anastomosis. History of dehydration resolved Chronic lymphocytic leukemia with elevated white blood cell count History of breast cancer resolved Mild protein calorie malnutrition chronic History of the COPD chronic Depression acute secondary to circumstances Glaucoma chronic Hospital Course: Patient underwent ileostomy closure. Her postoperative course was smooth. Her wound was closed in a delayed primary fashion. She was tolerating a general diet and having bowel movements at completion of her hospital stay. Status at Discharge Cognitive/behavioral status at discharge: Normal Functional status at discharge: independent ambulation Overall status at discharge: patient is progressing back to baseline Exam Vital Signs (past 8 hours): Oxygen Delivery Method Room Air Oxygen Flow Rate 0 Objective Labs Result Diagrams: 07/13/18 06:02 07/13/18 06:02 Discharge Plan Discharge Plan Patient Disposition: Home Discharge comment: Your operation went well. Everything is going as expected. If you need to reach after hours please call our office and hold into the page glass toughening operator picks up Discharge Med Rec/Prescriptions Prescriptions: New oxycodone-acetaminophen [Percocet] 5-325 mg tablet 1 tab PO Q4-6H PRN (Reason: pain) Qty: 14 RF: 0 Continue latanoprost 0.005 % drops 1 drp ophthalmic (eye) BEDTIME RF: 0 calcium carbonate [Calcium 500] 500 mg calcium (1,250 mg) Tablet 500 mg PO DAILY Qty: 0 RF: 0 mirtazapine 15 mg tablet 15 mg PO BEDTIME RF: 0 [id number] oil [[place]-3 Fish Oil] 300-1,000 mg Capsule 1,000 mg PO DAILY RF: 0 aspirin [Aspir-81] 81 mg Tablet,Delayed Release (Dr/Ec) 1 tab PO DAILY RF: 0 multivitamin Tablet 1 tab PO DAILY RF: 0 ibuprofen 200 mg Capsule 200 - 400 mg PO QID PRN (Reason: Pain) RF: 0 pantoprazole 20 mg tablet,delayed release (DR/EC) 20 mg PO QAM RF: 0 Discontinued erythromycin 500 mg tablet See Label Instructions .ROUTE .COMPLEX Qty: 4 RF: 0 neomycin 500 mg tablet See Label Instructions .ROUTE .COMPLEX Qty: 4 RF: 0 Follow up/Referrals: Senthil Bright MD [Physician] - 07/23/18 2:15 pm Sayra Russo MD [Primary Care Provider] - Provider Discharge Instructions Diet: Diet as Tolerated Activity: Do not lift over 10 lb or push heavy objects or strain. You may walk. You may drive when you are pain free off medication. Skin/Wound/Dressing Care Report to your healthcare provider any signs of infection, such as:: chills, fever, night sweats, increased pain, unusual drainage and unusual redness Visit Report/Discharge Packet Instructions: DI for Colostomy or Ileostomy Reversal, Oxycodone/Acetaminophen (By mouth) Stand Alone Forms: Surgery Discharge Visit Report Forms: Stroke Signs & Symptoms Discharge Data Primary Care Provider: Sayra Russo Attending Provider: Senthil Bright Admit Date/Time: 07/10/18 08:43 Discharges patient from system. Discharge Date/Time: 07/14/18 14:00
--- NOTE | 2018-07-14 15:01 | PC.NURSE ---
Pt A&Ox3, tolerating regular diet w/o nausea, reporting flatus this afternoon. Drsg changed to [facility] area free of s/sx infection, BT present. Discharge paperwork completed, reviewed follow up care/appt/medications. Pt left with all belongings with spouse.
--- NOTE | 2018-07-18 13:23 | P.DS_ITS ---
History of Present Illness Chief complaint: [id number] Narrative: Patient is a woman here for closure of an ileostomy. This was placed due to an obstruction in the perioperative. From a stricture that was quite unusual in her distal ileum to her anastomosis. She has not tolerated her ileostomy very well and had a period of dehydration and malnutrition. That has been overcome and she is here now for closure. She recently had a evaluation of the area between her ostomy and says colon and there was found to be no stricture and no problem with her colon. She underwent an outpatient bowel prep that included oral antibiotics. Discharge Providers Date of admission: 07/10/18 08:43 Primary care physician: Sayra uRsso MD Consults: 07/10/18 14:45 Consult to Discharge Planning Routine Comment: Consult to Physical Therapy Evaluate & Treat Comment: Physician Instructions: Evaluate and Treat 07/10/18 15:32 Consult to Dietitian, Adult Routine Comment: Reason For Exam: assessed at high risk, recent weight loss 07/13/18 16:31 Consult to Discharge Planning Routine Comment: Probable discharge tomorrow Saturday the to Discharge provider: Senthil Bright MD Discharge Date: 07/14/18 Summary Discharge Diagnosis: Ileostomy closed during this admission with resection and primary anastomosis. History of dehydration resolved Chronic lymphocytic leukemia with elevated white blood cell count History of breast cancer resolved Mild protein calorie malnutrition chronic History of the COPD chronic Depression acute secondary to circumstances Glaucoma chronic Hospital Course: Patient underwent ileostomy closure. Her postoperative course was smooth. Her wound was closed in a delayed primary fashion. She was tolerating a general diet and having bowel movements at completion of her hospital stay. Status at Discharge Cognitive/behavioral status at discharge: Normal Functional status at discharge: independent ambulation Overall status at discharge: patient is progressing back to baseline Exam Vital Signs (past 8 hours): Oxygen Delivery Method Room Air Oxygen Flow Rate 0 Objective Labs Result Diagrams: 07/13/18 06:02 07/13/18 06:02 Discharge Plan Discharge Plan Patient Disposition: Home Discharge comment: Your operation went well. Everything is going as expected. If you need to reach after hours please call our office and hold into the page boom operator picks up Discharge Med Rec/Prescriptions Prescriptions: New oxycodone-acetaminophen [Percocet] 5-325 mg tablet 1 tab PO Q4-6H PRN (Reason: pain) Qty: 14 RF: 0 Continue latanoprost 0.005 % drops 1 drp ophthalmic (eye) BEDTIME RF: 0 calcium carbonate [Calcium 500] 500 mg calcium (1,250 mg) Tablet 500 mg PO DAILY Qty: 0 RF: 0 mirtazapine 15 mg tablet 15 mg PO BEDTIME RF: 0 [id number]-epa-fish oil [Glen-3 Fish Oil] 300-1,000 mg Capsule 1,000 mg PO DAILY RF: 0 aspirin [Aspir-81] 81 mg Tablet,Delayed Release (Dr/Ec) 1 tab PO DAILY RF: 0 multivitamin Tablet 1 tab PO DAILY RF: 0 ibuprofen 200 mg Capsule 200 - 400 mg PO QID PRN (Reason: Pain) RF: 0 pantoprazole 20 mg tablet,delayed release (DR/EC) 20 mg PO QAM RF: 0 Discontinued erythromycin 500 mg tablet See Label Instructions .ROUTE .COMPLEX Qty: 4 RF: 0 neomycin 500 mg tablet See Label Instructions .ROUTE .COMPLEX Qty: 4 RF: 0 Follow up/Referrals: Senthil Bright MD [Physician] - 07/23/18 2:15 pm Sayra Russo MD [Primary Care Provider] - Provider Discharge Instructions Diet: Diet as Tolerated Activity: Do not lift over 10 lb or push heavy objects or strain. You may walk. You may drive when you are pain free off medication. Skin/Wound/Dressing Care Report to your healthcare provider any signs of infection, such as:: chills, fever, night sweats, increased pain, unusual drainage and unusual redness Visit Report/Discharge Packet Instructions: DI for Colostomy or Ileostomy Reversal, Oxycodone/Acetaminophen ( By mouth) Stand Alone Forms: Surgery Discharge Visit Report Forms: Stroke Signs & Symptoms Discharge Data Primary Care Provider: Sayra Russo Attending Provider: Senthil Bright Admit Date/Time: 07/10/18 08:43 Discharges patient from system. Discharge Date/Time: 07/14/18 14:00
== END 2018-07-14 14:00 | disposition home or self-care (01) | DRG 330 ==
PROVIDERS: Anesthesiology; Admitting Provider Specialist; PCP Internal Medicine; Visit Provider Specialist
PROC: 0DBB0ZZ Excision of Ileum, Open Approach (ICD-10-PCS; CPT 44620; principal; 2018-07-10 09:45)
DX: Z43.2 Encounter for attention to ileostomy (principal); C91.10 Chronic lymphocytic leukemia of B-cell type not having achieved remission; F32.9 Major depressive disorder, single episode, unspecified; Z87.891 Personal history of nicotine dependence
CPT/HCPCS: 36415; 44620; 80048; 83735; 85025; 88305; 94762; 97116; 97162; 97530; J0330; J1100; J1170; J1650; J1885; J2250; J2270; J2405; J2704; J3010

== ENCOUNTER → 2018-08-13 13:25 | Outpatient (CLI) | payer MEDICARE, SELFPAY ==
[2018-07-10 15:24] VITALS: BMI 20.9
--- NOTE | 2018-08-13 13:27 | DI.US.S_ITS ---
PROCEDURE: US PERIPH VENOUS LOW EXTREM LT INDICATIONS: BILATERAL ANKLE SWELLING TECHNIQUE: Real-time imaging, as well as color and pulse Doppler interrogation, were performed of the lower extremity deep veins from the inguinal ligament to the popliteal fossa. COMPARISON: None. FINDINGS: Complete occlusion can be seen from the level of the popliteal vein to the level of the visualized veins distally. More proximal venous thrombosis cannot be seen. IMPRESSION: Positive for deep venous thrombosis from the popliteal vein and distally. Note: Findings relayed to Dr. Meadows the nurse Angela at 2:49 PM [place] time on August 13, 2018. Dictated by: Dk Khalil M.D. on 08/13/2018 at 13:46 Approved by: Dk Khalil M.D. on 08/13/2018 at 13:50
== END ==
PROVIDERS: PCP Internal Medicine
DX: I82.432 Acute embolism and thrombosis of left popliteal vein (principal); C91.90 Lymphoid leukemia, unspecified not having achieved remission; M25.472 Effusion, left ankle; M25.471 Effusion, right ankle
CPT/HCPCS: 93971

== ENCOUNTER → 2018-10-24 12:46 | Outpatient (CLI) | payer MEDICARE, SELFPAY ==
[2018-07-10 15:24] VITALS: BMI 20.9
--- NOTE | 2018-10-24 | DI.US.S_ITS ---
PROCEDURE: US ABD AORTA ANEURYSM SCREEN INDICATIONS: SCREENING FOR CARDIOVASCULAR DISORDER TECHNIQUE: Real time scanning was performed of the aorta and iliac arteries, with image documentation. COMPARISON: [facility], , ABD AORTA ANEURYSM SCREENING, 12/04/2011, 13:50. FINDINGS: Scattered atheromatous plaque noted. Aorta: Proximal aortic diameter measures 2.5 cm. Mid-aorta measures 1.9 cm. Distal aortic diameter is 1.7 cm. Iliac arteries: Right common iliac artery measures 1.0 cm. Left common iliac artery measures 1.0 cm. IMPRESSION: No aneurysm. Dictated by: Dayron Briggs M.D. on 10/24/2018 at 13:24 Approved by: Dayron Briggs M.D. on 10/24/2018 at 13:25
== END ==
PROVIDERS: PCP Internal Medicine; Visit Provider Internal Medicine
DX: Z13.6 Encounter for screening for cardiovascular disorders (principal)
CPT/HCPCS: 76706

== ENCOUNTER → 2018-11-25 16:58 | Outpatient (CLI) | payer MEDICARE, SELFPAY ==
[2018-07-10 15:24] VITALS: BMI 20.9
[2018-11-25 17:44] LABS: Hematocrit 48.4 % (36-46); Hemoglobin 15.7 g/dL (12.0-16.0); Mean Corpuscular HGB Conc 32.5 % (30-36); Mean Corpuscular Hemoglobin 27.7 PG (26-34); Mean Corpuscular Volume 85.4 fL (80-100); Platelet Count 270 X10^3/uL (150-400); Red Blood Cell Count 5.66 X10^6/uL (4.0-5.2); Red Cell Distribution Width 17.4 % (11.6-14.8); White Blood Cell Count 15.2 X10^3/uL (4.5-11.0)
[2018-11-25 17:46] LABS: Add Manual Diff / Slide Review YES
[2018-11-25 18:03] LABS: BUN Creatinine Ratio 13.8 (6-22); Blood Urea Nitrogen 11 mg/dL (7-17); Calcium 10.2 mg/dL (8.4-10.2); Carbon Dioxide 34 mmol/L (22-32); Chloride 96 mmol/L (98-107); Estimated Glomerular Filt Rate > 60.0 mL/min (>60); Glucose 88 mg/dL (80-110); HEMOLYSIS < 15 (0-50); Potassium 3.5 mmol/L (3.4-5.1); Sodium 138 mmol/L (137-145)
[2018-11-25 18:31] LABS: Neutrophils Absolute Manual 4104 /uL (3000-5900); Total Cells Counted 100
[2018-11-25 18:32] LABS: RBC Morphology Normal Morphology; Reactive Lymphocytes 3+
[2018-11-25 18:35] LABS: Smudge Cells 1+
[2018-11-27 16:03] LABS: HSV1IGG < 0.90 index (< 0.90)
== END ==
PROVIDERS: Family Provider Internal Medicine; PCP Internal Medicine; Visit Provider Obstetrics & Gynecology
DX: R10.32 Left lower quadrant pain (principal); Z01.812 Encounter for preprocedural laboratory examination; N90.89 Other specified noninflammatory disorders of vulva and perineum
CPT/HCPCS: 36415; 80048; 85025; 86695; 86696

== ENCOUNTER → 2018-11-28 13:44 | Outpatient (CLI) | payer MEDICARE, SELFPAY ==
[2018-07-10 15:24] VITALS: BMI 20.9
--- NOTE | 2018-11-28 13:45 | DI.CT.S_ITS ---
PROCEDURE: CT ABDOMEN PELVIS W CON INDICATIONS: Fecal Matter coming from Vagina TECHNIQUE: After the administration of oral and intravenous contrast, 5 mm thick sections acquired from the diaphragms to the symphysis. 5 mm thick coronal and sagittal reformats were performed. For radiation dose reduction, the following was used: automated exposure control, adjustment of mA and/or kV according to patient size. COMPARISON: [facility], CT, CT ABDOMEN PELVIS W CON, 03/22/2018, 13:18. [facility], CT, CT ABDOMEN PELVIS W CON, 02/16/2018, 4:37. FINDINGS: Image quality: Excellent. ABDOMEN: Lung bases: Lung bases are clear. Heart size is normal. Solid organs: Liver is normal in size and enhancement. Gallbladder appears normal. Biliary system is non-dilated. Pancreas enhances normally. Spleen is normal in size and enhancement. No adrenal nodules. Kidneys are normal in size and enhancement, without hydronephrosis. Peritoneum and bowel: Stomach, small bowel, and colon loops are normal in caliber and wall thickness. No free fluid or air. Nodes and vessels: No retroperitoneal or mesenteric adenopathy. Aorta and inferior vena cava are normal in caliber. Miscellaneous: No ventral hernias. PELVIS: Genitourinary: Bladder wall thickness is normal. The morphology of the low pelvis suggest prior hysterectomy. No postsurgical inflammation is seen, but no abscess or fistula is found. Stool content within the colon is moderate over the descending and sigmoid colon. Miscellaneous: No inguinal hernias or adenopathy. Bones: No suspicious bony lesions. No vertebral body compression fractures. IMPRESSION: Prior hysterectomy. Ovaries not visualized. No abscess or fistula found. Stool content within the descending and sigmoid colon is moderate. A source of current reported symptomatology is not seen. Dictated by: Luis Alfredo Helm M.D. on 11/28/2018 at 15:38 Approved by: Luis Alfredo Helm M.D. on 11/28/2018 at 15:41
== END ==
PROVIDERS: Family Provider Internal Medicine; PCP Internal Medicine; Visit Provider Obstetrics & Gynecology
DX: K63.2 Fistula of intestine (principal); R10.32 Left lower quadrant pain; Z87.19 Personal history of other diseases of the digestive system; Z90.710 Acquired absence of both cervix and uterus
CPT/HCPCS: 74177; Q9967

== ENCOUNTER → 2019-01-09 14:24 | Outpatient (CLI) | payer MEDICARE, SELFPAY ==
[2018-07-10 15:24] VITALS: BMI 20.9
--- NOTE | 2019-01-09 | DI.MG.S_ITS ---
BILATERAL DIGITAL SCREENING MAMMOGRAM 3D/2D WITH CAD: 01/09/2019 CLINICAL: Routine screening. Comparison is made to exams dated: 11/28/2017 mammogram, 10/23/2016 mammogram, 10/07/2015 mammogram, and 09/24/2014 mammogram - [facility]. There are scattered fibroglandular elements in both breasts. Current study was also evaluated with a Computer Aided Detection (CAD) system. No significant masses, calcifications, or other findings are seen in either breast. There has been no significant interval change. IMPRESSION: NEGATIVE There is no mammographic evidence of malignancy. A 1 year screening mammogram is recommended. This exam was interpreted at Station ID: [id number]. NOTE: For mammograms, a report in lay terms will be sent to the patient. Approximately 15% of breast malignancies will not be visualized mammographically. In the management of a palpable breast mass, a negative mammogram must not discourage biopsy of a clinically suspicious lesion. Electronically Signed By: Ashley bansal/tennille:01/09/2019 17:16:49 letter sent: Normal Exam ACR BI-RADS Category 1: Negative 3341F
== END ==
PROVIDERS: Family Provider Internal Medicine; PCP Internal Medicine; Visit Provider Internal Medicine
DX: Z12.31 Encounter for screening mammogram for malignant neoplasm of breast (principal)
CPT/HCPCS: 77063; 77067

== ENCOUNTER → 2019-03-16 14:18 | Outpatient (ROUT) | payer MEDICARE, SELFPAY ==
[2018-07-10 15:24] VITALS: BMI 20.9
[2019-03-16 14:44] LABS: Appearance Urine UA CLEAR; Bilirubin Urine UA NEGATIVE (NEGATIVE); Color Urine UA YELLOW; Glucose Urine UA NEGATIVE (Negative); Ketones Urine UA NEGATIVE (NEGATIVE); Leukocyte Esterase Urine UA 1+ (NEGATIVE); Nitrite Urine UA NEGATIVE (Negative); Occult Blood Urine UA NEGATIVE (Negative); Protein Urine UA 1+ (Negative); Urobilinogen Urine UA 0.2 E.U./dL (0.2)
[2019-03-16 15:04] LABS: pH Urine UA 6.5 (4.5-8.0)
[2019-03-16 15:05] LABS: Bacteria Urine Occasional (0-1); Culture Indicated Urine Specimen Cultured; Hyaline Casts Urine 10-30/LPF; RBC Urine 0-1/HPF (0-5/HPF); Squamous Epithelial Cell Urine 1-5 /HPF (0-5/HPF); Transitional Epi Cells Urine 1-5/HPF (0-5/HPF); WBC Urine 10-30/HPF (0-5/HPF)
== END ==
PROVIDERS: Family Provider Internal Medicine; PCP Internal Medicine; Visit Provider Physician Assistant
DX: R30.9 Painful micturition, unspecified (principal); A08.4 Viral intestinal infection, unspecified; R10.30 Lower abdominal pain, unspecified
CPT/HCPCS: 81001; 87086

== ENCOUNTER → 2019-06-09 13:07 | Outpatient (CLI) | payer MEDICARE, SELFPAY ==
[2018-07-10 15:24] VITALS: BMI 20.9
[2019-06-09 13:57] LABS: Hematocrit 51.9 % (36-46); Hemoglobin 17.4 g/dL (12.0-16.0); Mean Corpuscular HGB Conc 33.6 % (30-36); Mean Corpuscular Hemoglobin 30.8 PG (26-34); Mean Corpuscular Volume 91.7 fL (80-100); Platelet Count 165 X10^3/uL (150-400); Red Blood Cell Count 5.66 X10^6/uL (4.0-5.2); Red Cell Distribution Width 16.3 % (11.6-14.8); White Blood Cell Count 17.6 X10^3/uL (4.5-11.0)
[2019-06-09 14:00] LABS: Add Manual Diff / Slide Review YES
[2019-06-09 14:04] LABS: 585 Gram Check PASS; Zero Check Sebra Scale PASS
[2019-06-09 14:05] LABS: Amount Collected in g 452mL; Dizziness NO; Postdiastolic BP 96; Postsystolic BP 139; Prediastolic 104; Presystolic 155; Pulse 88; Site of phlebotomy LAC; Swelling NO; Therapeutic Phleb Comment NO COMMENT
[2019-06-09 14:06] LABS: Neutrophils Absolute Manual 1936 /uL (3000-5900); Total Cells Counted 100
[2019-06-09 14:07] LABS: RBC Morphology Normal Morphology
[2019-06-09 14:08] LABS: Smudge Cells 1+
== END ==
PROVIDERS: PCP Internal Medicine
DX: C91.10 Chronic lymphocytic leukemia of B-cell type not having achieved remission (principal)
CPT/HCPCS: 85025; 99195

== ENCOUNTER → 2019-09-01 11:05 | Outpatient (CLI) | payer MEDICARE, SELFPAY ==
[2018-07-10 15:24] VITALS: BMI 20.9
[2019-09-01 11:32] LABS: Add Manual Diff / Slide Review YES; Hematocrit 53.5 % (36-46); Hemoglobin 17.7 g/dL (12.0-16.0); Mean Corpuscular HGB Conc 33.1 % (30-36); Mean Corpuscular Hemoglobin 30.7 PG (26-34); Mean Corpuscular Volume 92.6 fL (80-100); Platelet Count 156 X10^3/uL (150-400); Red Blood Cell Count 5.78 X10^6/uL (4.0-5.2); Red Cell Distribution Width 14.1 % (11.6-14.8); White Blood Cell Count 20.3 X10^3/uL (4.5-11.0)
[2019-09-01 12:06] LABS: Neutrophils Absolute Manual 3045 /uL (3000-5900); RBC Morphology Normal Morphology; Smudge Cells 1+; Total Cells Counted 100
== END ==
PROVIDERS: PCP Internal Medicine; Referring Provider Internal Medicine Hematology & Oncology; Visit Provider Internal Medicine Hematology & Oncology
DX: C91.10 Chronic lymphocytic leukemia of B-cell type not having achieved remission (principal)
CPT/HCPCS: 36415; 85025

== ENCOUNTER → 2020-01-19 12:13 | Outpatient (CLI) | payer MEDICARE, SELFPAY ==
[2018-07-10 15:24] VITALS: BMI 20.9
--- NOTE | 2020-01-19 | DI.MG.S_ITS ---
BILATERAL DIGITAL SCREENING MAMMOGRAM 3D/2D WITH CAD: 01/19/2020 CLINICAL: Routine screening. Comparison is made to exams dated: 01/09/2019 mammogram, 11/28/2017 mammogram, and 10/23/2016 mammogram - [facility]. There are scattered fibroglandular elements in both breasts. Current study was also evaluated with a Computer Aided Detection (CAD) system. No significant masses, calcifications, or other findings are seen in either breast. There has been no significant interval change. IMPRESSION: NEGATIVE There is no mammographic evidence of malignancy. A 1 year screening mammogram is recommended. This exam was interpreted at Station ID: [id number]. NOTE: For mammograms, a report in lay terms will be sent to the patient. Approximately 15% of breast malignancies will not be visualized mammographically. In the management of a palpable breast mass, a negative mammogram must not discourage biopsy of a clinically suspicious lesion. Electronically Signed By: Billie palacios/tennille:01/19/2020 16:25:08 letter sent: Normal Exam ACR BI-RADS Category 1: Negative 3341F
== END ==
PROVIDERS: PCP Internal Medicine; Referring Provider Internal Medicine; Visit Provider Internal Medicine
DX: Z12.31 Encounter for screening mammogram for malignant neoplasm of breast (principal)
CPT/HCPCS: 77063; 77067

== ENCOUNTER → 2020-01-31 15:20 | Outpatient (CLI) | payer MEDICARE, SELFPAY ==
[2018-07-10 15:24] VITALS: BMI 20.9
[2020-02-01 23:26] LABS: COVID19 Sendout Not Detected (Not Detect)
== END ==
PROVIDERS: PCP Internal Medicine; Visit Provider Physician Assistant
DX: Z11.59 Encounter for screening for other viral diseases (principal)
CPT/HCPCS: 87635

== ENCOUNTER 2020-02-03 06:03 | Day surgery (SDC) | payer MEDICARE, SELFPAY ==
[2018-07-10 15:24] VITALS: BMI 20.9
--- NOTE | 2020-02-03 06:58 | PM.PREOP ---
Pre-operative Note COVID-19 COVID-19 status: Negative Interval Note History & Physical reviewed/Exam performed by Physician: Yes Changes to H&P: No
--- NOTE | 2020-02-03 07:02 | PM.OP.1 ---
Operative Date/Time/Diagnoses Date of procedure: 02/03/20 Time of procedure: 08:45 Procedure & Clinicians Procedure: Preoperative diagnoses: 1. Left advanced nuclear sclerotic and cortical cataract. 2.HTN 3. Heavy arcus senilis 4. Glaucoma Postoperative diagnoses: 1. Cataract removed by phacoemulsification with placement of posterior chamber intraocular lens. Procedure: Phacoemulsification with posterior chamber intraocular lens implant Surgeon: Carolyn Helms MD Complications: None Specimen: None Implant: ZCBOO+23.0 Blood loss: None Anesthesia: Retrobulbar with monitored standby Description of procedure: female presents with a complaint of decreased vision due to cataract which is affecting activities of daily living including driving and reading. The patient wants surgery to improve vision. The patient was taken to the operating room and given IV sedation. A retrobulbar block consisting of 6 cc of 2% xylocaine without epinephrine mixed half and half with 0.5% Marcaine with 1 cc of hyaluronidase added is placed between the medial and lateral 1/3 of the inferior orbital rim. The eye is manually massaged for 30 sec, prepped using Betadine solution, and draped in the usual sterile fashion. Temporal approach was made, a 1 mm side-port incision was made 90? from the proposed clear corneal incision position. Phenylephrine 1.5% mixed with 1% xylocaine 0.2 cc was placed into the anterior chamber. Viscoat followed by Kodi was then placed. A 2.6 mm clear incision with a 2.6 mm blade was placed. A 360 degree capsulorrhexis style capsulotomy was then performed with a cystitome needle on a Healon. Hydrodelineation and hydrodissection were performed. The phacoemulsification unit is introduced, and sculpting notice used to groove the central lens. It is then removed in chopping mode. Epi nucleus is removed with epinuclear mode and irrigation aspiration was used to remove the peripheral cortex. The posterior capsule is polished. The intraocular lens is selected, inspected, power confirmed, and placed in the posterior chamber. The wound was stromally hydrated and tested for leaks, there was none and it was left sutureless. Vigamox 0.1 cc was placed into the anterior chamber. Kenalog 0.2 cc was placed in the superior subconjunctival space. A drop of antibiotic and was placed and the eye was patched and shielded. The patient was stable and returned to the recovery room in excellent condition. Dictated by: Carolyn Helms MD Copy to: [facility] Same procedure as scheduled: Yes
[2020-02-03 07:16] VITALS: BP 144/96; PULSE 67; RESP 16; TEMP 35.6; O2SAT 95
[2020-02-03 07:19] VITALS: BP 144/96; PULSE 67; RESP 16; TEMP 36.2; O2SAT 95; BMI 23.8
[2020-02-03] MEDS: CATARACT EYE COMPOUND (10 DROPS/SYRINGE) 3 DROPS EYE-OP (07:20)
[2020-02-03] MEDS: PROPARACAINE 0.5% OPHTH SOL 2 DROPS EYE-OP (07:34)
[2020-02-03] MEDS: LIDOCAINE 2% 4 ML, BUPIVACAINE 0.5% (PF) 4 ML, HYALURONIDASE 150 UNIT INJ (07:54)
[2020-02-03] MEDS: HYALURONATE SODIUM 10 MG/ML SYRINGE INJ (08:15)
[2020-02-03] MEDS: ERYTHROMYCIN OPHTH 1 GM OINT 1 APPLIC EYE-LEFT (08:15)
[2020-02-03] MEDS: CHONDROIDTIN/SOD HYALURONATE 1.05 ML SYRINGE INTRAOCULA (08:15)
[2020-02-03] MEDS: TRIAMCINOLONE 50 MG/5 ML VIAL INJ (08:16)
[2020-02-03] MEDS: MOXIFLOXACIN INJ 5 MG/ML VIAL EYE-OP (08:16)
[2020-02-03] MEDS: PHENYLEPHRINE/LIDOCAINE VIAL (OR) 0.2 ML EYE-OP (08:16)
[2020-02-03] MEDS: BALANCED SALT IRRIG SOLN NO.2 500 ML, EPINEPHrine 1 MG IRR (08:17)
[2020-02-03 09:12] VITALS: BP 135/92; PULSE 63; RESP 16; TEMP 35.6; O2SAT 97
== END 2020-02-03 09:05 | disposition home or self-care (01) ==
PROVIDERS: PCP Internal Medicine; Referring Provider Internal Medicine; Visit Provider Ophthalmology
PROC: (CPT 66984; principal; 2020-02-03 07:45)
DX: H25.812 Combined forms of age-related cataract, left eye (principal); H40.9 Unspecified glaucoma; H18.419 Arcus senilis, unspecified eye; I10 Essential (primary) hypertension; J44.9 Chronic obstructive pulmonary disease, unspecified; C91.10 Chronic lymphocytic leukemia of B-cell type not having achieved remission
CPT/HCPCS: 66984; J0171; J2250; J2704; J3010; J3301; J3470

== ENCOUNTER → 2020-02-14 13:31 | Outpatient (CLI) | payer MEDICARE, SELFPAY ==
[2018-07-10 15:24] VITALS: BMI 20.9
[2020-02-15 14:27] LABS: COVID19 Sendout Not Detected (Not Detect)
== END ==
PROVIDERS: PCP Internal Medicine; Visit Provider Nurse Practitioner
DX: Z11.59 Encounter for screening for other viral diseases (principal)
CPT/HCPCS: 87635

== ENCOUNTER 2020-02-17 06:28 | Day surgery (SDC) | payer MEDICARE, SELFPAY ==
[2018-07-10 15:24] VITALS: BMI 20.9
--- NOTE | 2020-02-16 18:44 | PM.PREOP ---
Pre-operative Note COVID-19 COVID-19 status: Negative Interval Note History & Physical reviewed/Exam performed by Physician: Yes Changes to H&P: No
--- NOTE | 2020-02-17 07:01 | P.OP_ITS ---
Operative Date/Time/Diagnoses Date of procedure: 02/17/20 Time of procedure: 07:45 Procedure & Clinicians Procedure: Preoperative diagnoses: 1. Right significant nuclear sclerotic and cortical cataract. 2. Glaucoma controlled with medication. 3. History of leukemia, inactive. 4. Hypertension 5. Anxiety Postoperative diagnoses: 1. Cataract removed by phacoemulsification with placement of posterior chamber intraocular lens. Procedure: Phacoemulsification with posterior chamber intraocular lens implant Surgeon: Carolyn Helms MD Complications: None Specimen: None Implant:ZCBOO+23.0 Blood loss: None Anesthesia: Retrobulbar with monitored standby Description of procedure: 74-year-old female presents with a complaint of decreased vision due to cataract which is affecting activities of daily living including distance and near. The patient wants surgery to improve vision with a distance non toric intra-ocular lens implant chosen. The patient was taken to the operating room and given IV sedation. A retrobulbar block consisting of 6 cc of 2% xylocaine without epinephrine mixed half and half with 0.5% Marcaine with 1 cc of hyaluronidase added is placed between the medial and lateral 1/3 of the inferior orbital rim. The eye is manually massaged for 30 sec, prepped using Betadine solution, and draped in the usual sterile fashion. Temporal approach was made, a 1 mm side-port incision was made 90? from the proposed clear corneal incision position. Phenylephrine 1.5% mixed with 1% xylocaine 0.2 cc was placed into the anterior chamber. Viscoat followed by Healon was then placed. A 2.6 mm clear incision with a 2.6 mm blade was placed. A 360 degree capsulorrhexis style capsulotomy was then performed with a cystitome needle on a Healon. Narrow anterior chamber. Hydrodelineation and hydrodissection were performed. The phacoemulsification unit is introduced, and sculpting notice used to groove the central lens. It is then removed in chopping mode. Epi nucleus is removed with epinuclear mode and irrigation aspiration was used to remove the peripheral cortex. The posterior capsule is polished. The intraocular lens is selected, inspected, power confirmed, and placed in the posterior chamber. The wound was stromally hydrated and tested for leaks, there was none and it was left sutureless. Vigamox 0.1 cc was placed into the anterior chamber. Kenalog 0.2 cc was placed in the superior subconjunctival sp ezio. A drop of antibiotic and was placed and the eye was patched and shielded. The patient was stable and returned to the recovery room in excellent condition. Dictated by: Carolyn Helms MD Copy to: [facility] Same procedure as scheduled: Yes
[2020-02-17 07:12] VITALS: BP 155/99; PULSE 75; RESP 16; TEMP 36.1; O2SAT 99; BMI 23.6
[2020-02-17] MEDS: CATARACT EYE COMPOUND (10 DROPS/SYRINGE) 3 DROPS EYE-OP (07:17)
[2020-02-17] MEDS: PROPARACAINE 0.5% OPHTH SOL 2 DROPS EYE-OP (07:17)
[2020-02-17] MEDS: CHONDROIDTIN/SOD HYALURONATE 1.05 ML SYRINGE INTRAOCULA (08:06)
[2020-02-17] MEDS: ERYTHROMYCIN OPHTH 1 GM OINT 1 APPLIC EYE-RIGHT (08:06)
[2020-02-17] MEDS: HYALURONATE SODIUM 10 MG/ML SYRINGE INJ (08:07)
[2020-02-17] MEDS: PHENYLEPHRINE/LIDOCAINE VIAL (OR) 0.2 ML EYE-OP (08:07)
[2020-02-17] MEDS: MOXIFLOXACIN INJ 5 MG/ML VIAL EYE-OP (08:08)
[2020-02-17] MEDS: TRIAMCINOLONE 50 MG/5 ML VIAL INJ (08:08)
[2020-02-17] MEDS: LIDOCAINE 2% 4 ML, BUPIVACAINE 0.5% (PF) 4 ML, HYALURONIDASE 150 UNIT INJ (08:09)
[2020-02-17] MEDS: BALANCED SALT IRRIG SOLN NO.2 500 ML, EPINEPHrine 1 MG IRR (08:11)
[2020-02-17 08:35] VITALS: BP 180/103; PULSE 63; RESP 16; TEMP 36.2; O2SAT 99
[2020-02-17 09:16] VITALS: BP 178/95; PULSE 56; RESP 18; TEMP 36.2; O2SAT 98
--- NOTE | 2020-02-17 09:17 | SUR.PHASEII ---
0835-Pt bp 180/103, talked with Dr Renee and Dr Helms and they state to hold pt for 1/2 hour and retake bp. if under 180 ok to send home. Pt resting comfortably in wheelchair with beverage, taking po fluids well. Pt denies pain or nausea. No c/o and feels fine.
--- NOTE | 2020-02-17 09:19 | SUR.PHASEII ---
0900- Pt up and ambulating gait steady, getting dressed now. Bp better at 178/95 ok to send home per DR Renee. Iv dcd site clear. All dc instructions given and pt verbalizes understanding.
== END 2020-02-17 09:12 | disposition home or self-care (01) ==
LOC: OR 06:30
PROVIDERS: PCP Internal Medicine; Referring Provider Internal Medicine; Visit Provider Ophthalmology
PROC: (CPT 66984; principal; 2020-02-17 07:45)
DX: H25.811 Combined forms of age-related cataract, right eye (principal); I10 Essential (primary) hypertension; H40.9 Unspecified glaucoma; F41.9 Anxiety disorder, unspecified
CPT/HCPCS: 66984; J0171; J2704; J3301; J3470

== ENCOUNTER → 2020-07-27 19:22 | Outpatient (ROUT) | payer MEDICARE, SELFPAY ==
[2018-07-10 15:24] VITALS: BMI 20.9
[2020-07-27 19:38] LABS: Cholesterol 152 mg/dL (140-199); HDL Cholesterol 51 mg/dL (40-60); LDL Cholesterol Calculated 86 mg/dL (<100); Triglycerides 76 mg/dL (35-150)
== END ==
PROVIDERS: PCP Internal Medicine; Visit Provider Internal Medicine
DX: E78.5 Hyperlipidemia, unspecified (principal)
CPT/HCPCS: 80061

== ENCOUNTER → 2020-09-07 14:26 | Outpatient (CLI) | payer MEDICARE, SELFPAY ==
[2018-07-10 15:24] VITALS: BMI 20.9
[2020-09-07] MEDS: COVID-19 VACC #1, MRNA(MOD) 100 MCG/0.5 ML VIAL IM (14:34)
== END ==
PROVIDERS: PCP Internal Medicine; Visit Provider Internal Medicine
DX: Z23 Encounter for immunization (principal)
CPT/HCPCS: 0011A; 91301

== ENCOUNTER → 2020-10-05 13:43 | Outpatient (CLI) | payer MEDICARE, SELFPAY ==
[2018-07-10 15:24] VITALS: BMI 20.9
[2020-10-05] MEDS: COVID-19 VACC #2, MRNA(MOD) 100 MCG/0.5 ML VIAL IM (13:49)
== END ==
PROVIDERS: PCP Internal Medicine; Visit Provider Internal Medicine
DX: Z23 Encounter for immunization (principal)
CPT/HCPCS: 0012A; 91301

== ENCOUNTER → 2021-01-20 15:13 | Outpatient (CLI) | payer MEDICARE, SELFPAY ==
[2018-07-10 15:24] VITALS: BMI 20.9
--- NOTE | 2021-01-20 15:16 | DI.MG.S_ITS ---
BILATERAL DIGITAL SCREENING MAMMOGRAM 3D/2D WITH CAD: 01/20/2021 CLINICAL: Routine screening. Comparison is made to exams dated: 01/19/2020 mammogram, 01/09/2019 mammogram, and 11/28/2017 mammogram - [facility]. There are scattered fibroglandular elements in both breasts. Current study was also evaluated with a Computer Aided Detection (CAD) system. No significant masses, calcifications, or other findings are seen in either breast. There has been no significant interval change. IMPRESSION: NEGATIVE There is no mammographic evidence of malignancy. A 1 year screening mammogram is recommended. This exam was interpreted at Station ID: [id number]. NOTE: For mammograms, a report in lay terms will be sent to the patient. Approximately 15% of breast malignancies will not be visualized mammographically. In the management of a palpable breast mass, a negative mammogram must not discourage biopsy of a clinically suspicious lesion. Electronically Signed By: Edgar Gould M.D. at/tennille:01/20/2021 16:03:55 letter sent: Normal Exam ACR BI-RADS Category 1: Negative 3341F
== END ==
PROVIDERS: PCP Internal Medicine; Referring Provider Internal Medicine; Visit Provider Internal Medicine
DX: Z12.31 Encounter for screening mammogram for malignant neoplasm of breast (principal)
CPT/HCPCS: 77063; 77067

== ENCOUNTER → 2022-03-05 15:28 | Outpatient (CLI) | payer OTHER, SELFPAY ==
[2018-07-10 15:24] VITALS: BMI 20.9
--- NOTE | 2022-03-05 15:29 | DI.MG.S_ITS ---
BILATERAL DIGITAL SCREENING MAMMOGRAM 3D/2D WITH CAD: 03/05/2022 CLINICAL: Routine screening. Comparison is made to exams dated: 01/20/2021 mammogram, 01/19/2020 mammogram, and 01/09/2019 mammogram - [facility]. There are scattered areas of fibroglandular density in both breasts (category b / 25%-50% glandular tissue). Current study was also evaluated with a Computer Aided Detection (CAD) system. No significant masses, calcifications, or other findings are seen in either breast. There has been no significant interval change. IMPRESSION: NEGATIVE There is no mammographic evidence of malignancy. A 1 year screening mammogram is recommended. Based on the Tyrer Cuzick model (a risk assessment model) the patient's lifetime risk is 2.4% and her 10 year risk is 0.0%. According to the ACR, ACS, and NCCN guidelines, an annual breast MRI exam along with mammogram is recommended if the patient's lifetime risk is 20% or greater. This exam was interpreted at Station ID: [id number]. NOTE: For mammograms, a report in lay terms will be sent to the patient. Approximately 15% of breast malignancies will not be visualized mammographically. In the management of a palpable breast mass, a negative mammogram must not discourage biopsy of a clinically suspicious lesion. Electronically Signed By: Rakesh boyer/tennille:03/06/2022 09:36:39 letter sent: Normal Exam ACR BI-RADS Category 1: Negative 3341F
== END ==
PROVIDERS: PCP Internal Medicine; Referring Provider Internal Medicine; Visit Provider Internal Medicine
DX: Z12.31 Encounter for screening mammogram for malignant neoplasm of breast (principal)
CPT/HCPCS: 77063; 77067

== ENCOUNTER 2022-05-11 15:57 | Emergency (ER) | payer OTHER, SELFPAY ==
[2018-07-10 15:24] VITALS: BMI 20.9
[2022-05-11 17:07] VITALS: BP 191/110; PULSE 78; RESP 17; TEMP 36.3; O2SAT 97
--- NOTE | 2022-05-11 17:11 | DI.RAD.S_ITS ---
PROCEDURE: XR RIBS LT MIN 3V W CXR1V INDICATIONS: fall TECHNIQUE: 3 views of the left ribs were acquired, along with a single view chest. COMPARISON: None. FINDINGS: Surgical changes and devices: None. Bones and chest wall: There are nondisplaced left 4th and 5th lateral rib fractures. No suspicious bony lesions. Overlying soft tissues appear unremarkable. Lungs and pleura: No pleural effusions or pneumothorax. Lungs appear clear. Mediastinum: Mediastinal contours appear normal. Heart size is normal. IMPRESSION: Nondisplaced left 4th and 5th lateral rib fractures. Dictated by: Rea Godinez M.D. on 05/11/2022 at 17:58 Approved by: Rea Godinez M.D. on 05/11/2022 at 17:59
--- NOTE | 2022-05-11 18:27 | DI.CT.S_ITS ---
PROCEDURE: CT CHEST W CON INDICATIONS: Status post fall with left rib fractures on x-ray. TECHNIQUE: After the administration of intravenous contrast, 5 mm thick sections acquired from the pulmonary apices to the posterior costophrenic angles. 1 mm axial lung, 5 mm thick coronal and sagittal reformats and 7 mm axial MIP were acquired. For radiation dose reduction, the following was used: automated exposure control, adjustment of mA and/or kV according to patient size. COMPARISON: [facility], CR, XR RIBS LT MIN 3V W CXR1V, 05/11/2022, 17:22. FINDINGS: Image quality: Excellent. CHEST: Lower Neck: No lymphadenopathy by size criteria. Thyroid: Visualized thyroid demonstrates small hypoattenuating nodules within the right lobe measuring up to 0.5 cm. Axillae: No lymphadenopathy by size criteria. Chest Wall: Unremarkable. Bones: There are relatively nondisplaced fractures of the left 4th through 6th ribs laterally. Lungs and Airways: No pulmonary contusions or lacerations. No acute consolidation. There is mild dependent atelectasis bilaterally. There is a localized region of bronchiectasis anteriorly within the right upper lobe with areas of mild wall thickening and indistinct adjacent opacities. In addition, there are small clustered indistinct nodules peripherally within the right upper lobe. Findings likely represent sequelae of an infectious or inflammatory process. There are mild centrilobular emphysematous changes. The trachea and central airways are patent. Pleura: No pneumothorax or pleural effusions. Heart: Heart size is normal. No pericardial effusion. Thoracic Vessels: The aorta and pulmonary arteries are normal in size. Mediastinum and Vanita: No lymphadenopathy by size criteria. No definite mediastinal hematomas. Esophagus: No wall thickening. No hiatal hernia. Abdomen: Visualized upper abdomen demonstrate a few scattered prominent mesenteric lymph nodes within the visualized abdomen measuring up to 1.1 cm. IMPRESSION: 1. No evidence of pneumothorax or hemothorax. 2. Relatively nondisplaced fractures of the left 4th through 6th ribs laterally. 3. Localized region of bronchiectasis in the right upper lobe with areas of mild wall thickening and indistinct adjacent opacities. A few clustered indistinct nodules are also demonstrated within the right upper lobe. The constellation of findings likely represent sequelae of an infectious or inflammatory process. Dictated by: Russ Givens M.D. on 05/11/2022 at 21:54 Approved by: Russ Givens M.D. on 05/11/2022 at 22:08
[2022-05-11] MEDS: HYDROMORPHONE 0.5 MG INJ IV (19:50)
[2022-05-11] MEDS: ONDANSETRON 4 MG/2 ML INJ IV (19:50)
[2022-05-11] MEDS: KETOROLAC 30 MG/ML VIAL 15 MG IV (19:50)
[2022-05-11] MEDS: SODIUM CHLORIDE 0.9% 1,000 ML 150 ML IV (19:51)
[2022-05-11 19:53] LABS: Hematocrit 57.6 % (36-46); Hemoglobin 18.8 g/dL (12.0-16.0); Mean Corpuscular HGB Conc 32.6 % (30-36); Mean Corpuscular Hemoglobin 30.6 PG (26-34); Mean Corpuscular Volume 93.7 fL (80-100); Platelet Count 130 X10^3/uL (150-400); Red Blood Cell Count 6.14 X10^6/uL (4.0-5.2); Red Cell Distribution Width 15.8 % (11.6-14.8)
[2022-05-11 19:54] LABS: Add Manual Diff / Slide Review YES
[2022-05-11 19:56] LABS: White Blood Cell Count 62.3 X10^3/uL (4.5-11.0)
[2022-05-11 20:01] LABS: Alanine Aminotransferase 23 IU/L (<35); Albumin 4.8 g/dL (3.5-5.0); Albumin Globulin Ratio 1.1 (1.0-2.8); Alkaline Phosphatase 170 U/L (38-126); Aspartate Aminotransferase 33 IU/L (14-36); BUN Creatinine Ratio 19.6 (6-22); Bilirubin Total 1.1 mg/dL (0.2-1.3); Blood Urea Nitrogen 11 mg/dL (7-17); Carbon Dioxide 32 mmol/L (22-32); Chloride 94 mmol/L (98-107); Estimated Glomerular Filt Rate > 60 mL/min (>60); Globulin 4.4 g/dL (1.7-4.1); Glucose 102 mg/dL (80-110); HEMOLYSIS < 15 (0-50); Sodium 138 mmol/L (137-145); Total Protein 9.2 g/dL (6.3-8.2)
[2022-05-11 20:19] LABS: Neutrophils Absolute Manual 5607 /uL (3000-5900); RBC Morphology Normal Morphology; Total Cells Counted 100
--- NOTE | 2022-05-11 20:23 | PC.NURSE ---
pt medicated for pain and given pillow to splint left ribs for moving in the bed.
[2022-05-11 22:48] VITALS: PULSE 92; O2SAT 98
[2022-05-11 22:49] VITALS: BP 161/98; PULSE 85; O2SAT 98
[2022-05-11 23:00] VITALS: BP 168/102; PULSE 79; O2SAT 97
--- NOTE | 2022-05-11 23:01 | ED_ITS ---
HPI - Back Pain/Injury General Chief Complaint: Back Pain/Injury Stated Complaint: Fall, left arm pain, Breast pain Time Seen by Provider: 05/11/22 18:27 Source: patient History of Present Illness HPI Narrative: 76-year-old woman with a history of polycythemia, chronic lymphocytic leukemia, hypertension who had a fall approximately 48 hours ago with severe left-sided rib pain. She describes having dinner with her standing up and is unclear whether she was unstable, tripped or actually had a syncopal episode because the next she remembers she was in bed. She knows that she did fall on a glass table with the left posterior ribs taking the brunt of the fall. Over the last couple of days she is taking a small amount of Tylenol but has been staying in bed to try to help control pain. She comes in today because the pain is worsening. She is not short of breath but she is splinting particularly on the left side. She does not report headaches, weakness, numbness, palpitations, tenderness to the head, her neck or any extremities. Related Data Home Medications Medication Instructions Recorded Confirmed aspirin 81 mg tablet,delayed 1 tab PO DAILY 11/15/17 12/27/21 release (Aspir-) multivitamin 1 tab PO DAILY 11/15/17 12/27/21 calcium carbonate 500 mg calcium 500 mg PO DAILY ##0 12/24/17 12/27/21 (1,250 mg) tablet (Calcium 500) latanoprost 0.005 % eye drops 1 drp ophthalmic (eye) BEDTIME 12/24/17 12/27/21 hydrochlorothiazide 12.5 mg capsule 25 mg PO DAILY 11/25/18 12/27/21 metoprolol succinate 50 mg 50 mg PO DAILY 03/21/21 12/27/21 tablet,extended release 24 hr Previous Rx's Medication Instructions Recorded estradiol 0.01% (0.1 mg/gram) 0.5 gram vaginal DAILY #42.5 grams 04/29/19 vaginal cream (Estrace) oxycodone-acetaminophen 5 mg-325 1 tab PO Q6H PRN pain #14 tabs 05/11/22 mg tablet Allergies Allergy/AdvReac Type Severity Reaction Status Date / Time lisinopril Allergy Severe SWELLING Verified 05/11/22 17:10 LIPS, TONGUE Review of Systems Review of Systems Narrative: Remainder of complete review of systems is otherwise unremarkable except for that included in the HPI. Patient History Medical History Breast cancer, left (~2011) CLL (chronic lymphocytic leukemia) Colostomy in place COPD (chronic obstructive pulmonary disease) Depression Erythrocytosis Glaucoma History of UTI Hypertension Impaired vision Lack of appetite Mass of appendix Mild protein-calorie malnutrition Other bursal cyst, unspecified wrist Small bowel obstruction Wears dentures Surgical History H/O: hysterectomy History of colonoscopy S/P small bowel resection Status post laparoscopic colectomy Tubal ligation status Family History Mother No known health problems Father No known health problems Social History household members: spouse Smoking Status: Current every day smoker alcohol intake: current substance use type: does not use Smoking Status: Current every day smoker alcohol intake frequency: 0-2 drinks per day Substance Use Type: does not use Exam Initial Vital Signs Initial Vital Signs: Vital Signs Temperature 97.4 F L 05/11/22 17:07 Pulse Rate 78 05/11/22 17:07 Respiratory Rate 17 05/11/22 17:07 Blood Pressure 191/110 H 05/11/22 17:07 Pulse Oximetry 97 05/11/22 17:07 Oxygen Delivery Method 05/11/22 17:07 General: Frail, in moderate distress. Able to give a complete and coherent history. Well-nourished well-developed HEENT: Moist mucous membranes, normal sclera with reactive pupils, atraumatic Neck: No JVD, supple, no midline cervical spine tenderness Respiratory: Lungs are clear to auscultation, no wheezing no rales no rhonchi. She is some splinting in the left lung base. Chest: No significant abrasions or contusions. No subcutaneous air or palpable rib fractures. She is quite tender over the left lower posterior ribs in the posterior axillary line. Cardiac: Regular rate and rhythm no murmurs no bruits Abdomen: Soft, nontender, good bowel tones, no flank pain Skin: Warm and dry, no rashes Neurologic: Grossly neurologically intact with no obvious asymmetries or abnormalities Extremities: No trauma, well perfused Psych: Cooperative, appropriate insight and affect Course Orders Ordered: ED Orders 05/11/22 17:11 XR ribs LT min 3V w CXR1V Stat 05/11/22 18:27 CT chest w con Stat 05/11/22 19:35 Complete Blood Count AUTO DIFF Stat Comprehensive Metabolic Panel Stat Hydromorphone HCl (Hydromorphone 0.5 Mg Inj) 0.5 mg IV Q15MIN PRN PRN Reason: Pain, Last Admin: 05/11/22 19:50 Dose: 0.5 mg Documented By: BT Sodium Chloride (Normal Saline 0.9%) 1,000 mls @ 150 mls/hr IV CONT DOMINIQUE Last Admin: 05/11/22 19:51 Dose: 150 mls/hr Documented By: BT Discontinued Medications Ketorolac Tromethamine (Ketorolac 30 Mg/Ml Vial) 15 mg IV NOW ONE Stop: 05/11/22 18:28 Last Admin: 05/11/22 19:50 Dose: 15 mg Documented By: FRANKY Ondansetron HCl (Ondansetron 4 Mg/2 Ml Inj) 4 mg IV NOW ONE Stop: 05/11/22 19:47 Last Admin: 05/11/22 19:50 Dose: 4 mg Documented By: FRANKY Oxycodone/Acetaminophen (Oxycodone/Acetaminophen 5/325 Tablet) 1 tab PO NOW ONE Stop: 05/11/22 23:10 Last Admin: 05/11/22 23:14 Dose: 1 tab Oxycodone/Acetaminophen (Oxycodone/Apap 5/325 Prepack) 1 bottle MISC SEEINSTR ONE Stop: 05/11/22 23:10 Last Admin: 05/11/22 23:14 Dose: 1 bottle Vital Signs Vital signs: Vital Signs - 8 hr 05/11/22 17:07 05/11/22 22:48 05/11/22 22:49 Temperature 97.4 F L Pulse Rate 78 92 H Respiratory Rate 17 Blood Pressure 191/110 H 161/98 H Pulse Oximetry 97 98 Oxygen Delivery Method Room Air 05/11/22 22:49 05/11/22 23:00 05/11/22 23:00 Temperature Pulse Rate 85 79 Respiratory Rate Blood Pressure 168/102 H Pulse Oximetry 98 97 Oxygen Delivery Method MDM - Back Pain/Injury Lab Data Result diagrams: 05/11/22 19:35 05/11/22 19:35 Labs: Lab Results 05/11/22 05/11/22 Range/Units 19:35 19:35 WBC 62.3 H* (4.5-11.0) X10^3/uL RBC 6.14 H (4.0-5.2) X10^6/uL Hgb 18.8 H (12.0-16.0) g/dL Hct 57.6 H (36-46) % MCV 93.7 (80-100) fL MCH 30.6 (26-34) PG MCHC 32.6 (30-36) % RDW 15.8 H (11.6-14.8) % Plt Count 130 L (150-400) X10^3/uL Neut % (Auto) Not Reportable Lymph % (Auto) Not Reportable [facility] % (Auto) Not Reportable Eos % (Auto) Not Reportable Baso % (Auto) Not Reportable Lymph # (Auto) Not Reportable [facility] # (Auto) Not Reportable Baso # (Auto) Not Reportable Total Counted 100 Seg Neutrophils % 9.0 L (38-70) % Lymphocytes % (Manual) 43.0 (25-45) % Atypical Lymphs % 48.0 H ( - 0) % Neutrophils # (Manual) 5607 (1170-6819) /uL RBC Morphology Normal morphology Sodium 138 (137-145) mmol/L Potassium 4.0 (3.4-5.1) mmol/L Chloride 94 L (98-107) mmol/L Carbon Dioxide 32 (22-32) mmol/L BUN 11 (7-17) mg/dL Creatinine 0.56 (0.52-1.04) mg/dL Estimated GFR > 60 (>60) mL/min BUN/Creatinine Ratio 19.6 (6-22) Glucose 102 (80-110) mg/dL Calcium 10.0 (8.4-10.2) mg/dL Total Bilirubin 1.1 (0.2-1.3) mg/dL AST 33 (14-36) IU/L ALT 23 (<35) IU/L Alkaline Phosphatase 170 H (38-126) U/L Total Protein 9.2 H (6.3-8.2) g/dL Albumin 4.8 (3.5-5.0) g/dL Globulin 4.4 H (1.7-4.1) g/dL Albumin/Globulin Ratio 1.1 (1.0-2.8) Imaging Data Chest x-ray: Radiologist's Impression: FINDINGS:? ? Surgical changes and devices:? None.? ? Bones and chest wall:? There are nondisplaced left 4th and 5th lateral rib fractures.? No suspicious bony lesions.? Overlying soft tissues appear unremarkable.? ? Lungs and pleura:? No pleural effusions or pneumothorax.? Lungs appear clear.? ? Mediastinum:? Mediastinal contours appear normal.? Heart size is normal.? ? IMPRESSION:? Nondisplaced left 4th and 5th lateral rib fractures.? ? ? Dictated by: Rea Godinez M.D. on 05/11/2022 at 17:58 ? ? Chest CT: Radiologist's Impression: CHEST: Lower Neck: No lymphadenopathy by size criteria. Thyroid:? Visualized thyroid demonstrates small hypoattenuating nodules within the right lobe measuring up to 0.5 cm. Axillae: No lymphadenopathy by size criteria. Chest Wall:? Unremarkable.? Bones:? There are relatively nondisplaced fractures of the left 4th through 6th ribs laterally. ? Lungs and Airways:? No pulmonary contusions or lacerations.? No acute consoli dation.? There is mild dependent atelectasis bilaterally.? There is a localized region of bronchiectasis anteriorly within the right upper lobe with areas of mild wall thickening and indistinct adjacent opacities.? In addition, there are small clustered indistinct nodules peripherally within the right upper lobe.? Findings likely represent sequelae of an infectious or inflammatory process.? There are mild centrilobular emphysematous changes.? The trachea and central airways are patent. Pleura: No pneumothorax or pleural effusions.? ? Heart: Heart size is normal.? No pericardial effusion. Thoracic Vessels: The aorta and pulmonary arteries are normal in size.? Mediastinum and Vanita: No lymphadenopathy by size criteria.? No definite mediastinal hematomas.? Esophagus: No wall thickening. No hiatal hernia. Abdomen:? Visualized upper abdomen demonstrate a few scattered prominent mesenteric lymph nodes within the visualized abdomen measuring up to 1.1 cm. ? IMPRESSION:? ? 1. No evidence of pneumothorax or hemothorax. ? 2.? Relatively nondisplaced fractures of the left 4th through 6th ribs la terally. ? 3. Localized region of bronchiectasis in the right upper lobe with areas of mild wall thickening and indistinct adjacent opacities.? A few clustered indistinct nodules are also demonstrated within the right upper lobe.? The constellation of findings likely represent sequelae of an infectious or inflammatory process. ? ? Dictated by: Russ Givens M.D. on 05/11/2022 at 21:54 ? ? MDM Narrative Medical decision making narrative: 76-year-old woman with a fall 48 hours ago complaining of left posterior rib pain. Uncertain why she fell however at this point she showing no signs of acute coronary issues, prior stroke or complications beyond rib fractures appreciated on chest x-ray and CT scan. Findings on scans indicate nondisplaced rib fractures 4 5 and 6 left posteriorly. No hemopneumothorax, no spine injuries and no additional findings. All of this is reviewed with her. Reviewed reason for increased mobility and incentive spirometry. Respiratory therapy is given her an incentive spirometer along with instructions on use. She is been given a dose of Percocet after IV Toradol. Sent home with a couple doses of Percocet. She is somewhat leery of pain medication but I did reiterate the importance of pain control enough that she is able to do deep breathing. I have also given her prescription that she can choose to fill if she wants to. At this point she is safe for home discharge Discharge Plan Departure Patient Disposition: Home Clinical Impression: Multiple rib fractures Qualifiers: Encounter type: initial encounter Fracture type: closed Laterality: left Qualified Code(s): S22.42XA - Multiple fractures of ribs, left side, initial encounter for closed fracture Fall Qualifiers: Encounter type: initial encounter Qualified Code(s): W19.XXXA - Unspecified fall, initial encounter Instructions: DI for Rib Fracture Activity Restrictions/Additional Instructions: Thank you for coming in today Your blood work was reassuring aside from your CLL that was appreciated. You have 3 rib fractures on the left side. Numbers 4 5 and 6. Fortunately they did not puncture your lung. You do not have any bleeding inside your chest and your lungs themselves look okay. I did not find any evidence for further trauma with your CT scan. With rib fractures, they are very painful and it is very important that your pain is controlled enough that you are able to take deep breaths and get out of bed and move around. Moving and deep breathing is the perez to rapid healing. Using 400 mg of ibuprofen (2 [id number] pills) and 1 Tylenol every 6 hours can be very helpful in controlling pain. For severe pain you can use 400 mg of ibuprofen +1 Percocet. Percocet has Tylenol plus oxycodone. If you choose to use the narcotic, it can cause constipation. Please make sure you add a stool softener as needed I have also given you an incentive spirometer. I would encourage you to take a couple of deep breaths every hour that you are awake. This helps keep your lungs fully inflated and reduces your risk of developing pneumonia If you find that you are getting worse or develop any new symptoms, please feel free to return to the emergency department for further evaluation. Prescriptions: New oxycodone-acetaminophen 5-325 mg tablet 1 tab PO Q6H PRN (Reason: pain) Qty: 14 0RF No Action estradiol [Estrace] 0.01 % (0.1 mg/gram) cream 0.5 gram VAG DAILY Qty: 42.5 5RF Rx Instructions: Place 0.5gm intravaginal and small amount to the external genitalia every day for 2 wks and then twice a week hydrochlorothiazide 12.5 mg capsule 25 mg PO DAILY latanoprost 0.005 % drops 1 drp ophthalmic (eye) BEDTIME Label Comments: patient states running out..needs refill calcium carbonate [Calcium 500] 500 mg calcium (1,250 mg) Tablet 500 mg PO DAILY Qty: 0 aspirin [Aspir-81] 81 mg Tablet,Delayed Release (Dr/Ec) 1 tab PO DAILY multivitamin Tablet 1 tab PO DAILY Label Comments: womens 50+ multivitamin metoprolol succinate 50 mg Tablet Extended Release 24 Hr 50 mg PO DAILY Referrals: Sayra Russo MD [Primary Care Provider] -
[2022-05-11] MEDS: OXYCODONE/ACETAMINOPHEN 5/325 TABLET 1 TAB PO (23:14)
[2022-05-11] MEDS: OXYCODONE/APAP 5/325 PREPACK 1 BOTTLE MISC (23:14)
== END 2022-05-11 23:52 | disposition home or self-care (01) ==
PROVIDERS: Emergency Provider Emergency Medicine; PCP Internal Medicine
DX: S22.42XA Multiple fractures of ribs, left side, initial encounter for closed fracture (principal); W18.30XA Fall on same level, unspecified, initial encounter
CPT/HCPCS: 36415; 71101; 71260; 80053; 85007; 85025; 96361; 96374; 96375; 99284; J1170; J1885; J2405; Q9967

== ENCOUNTER → 2022-12-17 15:04 | Outpatient (CLI) | payer OTHER, SELFPAY ==
[2018-07-10 15:24] VITALS: BMI 20.9
--- NOTE | 2022-12-17 | DI.RAD.S_ITS ---
Bone Density Report Name: TAVO PARTIDA Age: 77 Sex: Female Ethnicity: Black Date of : 1945 Indication: osteopenia; Referring Provider: SINDHU HAZEL Study: Bone densitometry was performed. Exam Date: December 17, 2022 Accession number: [id number] Bone Density: Region BMD T-score Z-score Classification AP Spine(L1, L3, L4) 1.082 0.3 2.2 Normal Femoral Neck (Left) 0.571 -2.5 -1.0 Osteoporosis Total Hip (Left) 0.665 -2.3 -0.9 Osteopenia Femoral Neck (Right) 0.608 -2.2 -0.7 Osteopenia Total Hip (Right) 0.690 -2.1 -0.7 Osteopenia Total Hip Mean 0.677 -2.2 -0.8 Osteopenia World Health Organization criteria for BMD impression classify patients as: Normal (T-score at or above -1.0), Osteopenia (T-score between -1.0 and -2.5), or Osteoporosis (T-score at or below -2.5). 10-year Fracture Risk: FRAX not reported because: Some T-score for Spine Total or Hip Total or Femoral Neck at or below -2.5 Previous Exams: -- Region Exam Age BMD T-score BMD Change BMD Change Date g/cm2 vs Baseline vs Previous -- AP Spine (L1,L3-L4) 12/17/2022 77 1.082 0.3 -0.107 (-9.0%)# -0.107 (-9.0%)# 07/21/2009 64 1.189 1.2 Total Hip(Left) 12/17/2022 77 0.665 -2.3 -0.109 (-14.1%)# -0.109 (-14.1%)# 07/21/2009 64 0.774 -1.4 Total Hip(Right) 12/17/2022 77 0.690 -2.1 -0.177 (-20.4%)# -0.177 (-20.4%)# 07/21/2009 64 0.867 -0.6 -- *Denotes significance at 95% confidence level, LSC for AP Spine = 0.022 g/cm2, LSC for Total Hip = 0.027 g/cm2 # Denotes dissimilar scan types or analysis methods Impression: The patient has osteoporosis, based on the Left Femoral Neck T-score. No significant bone loss was observed. Discussion: INCREASED RISK OF FRACTURE. BONE DENSITY IS UNDESIRABLY LOW AT ONE OR MORE SKELETAL SITES, CONSISTENT WITH POSTMENOPAUSAL OSTEOPOROSIS. This patient's lowest T-score meets the World Health Organization's (WHO) criteria for osteoporosis at one or more sites (T-score -2.5 or below). In untreated patients, the risk of osteoporotic fracture increases approximately two-fold for each 1.0 SD decrease in T-score. Low bone density is not the only risk factor for fracture; also consider factors such as patient's age, frailty or poor health, risk of falling, risk of injury, previous osteoporotic fracture, family history of osteoporosis, cigarette smoking, low body weight, etc. Not everyone with low bone mineral density has osteoporosis; osteomalacia and other metabolic bone disorders should also be considered. Patients who have osteoporosis should be evaluated for specific diseases and conditions (secondary causes) that may cause or contribute to bone loss. The [place] [employer]ocrinologists (AACE) and National Osteoporosis Foundation (NOF) recommend pharmacologic intervention for all postmenopausal women whose T-score is in this range. The patient should follow a healthful lifestyle (good nutrition with adequate calcium and vitamin D, and appropriate weight-bearing exercise). Follow-Up: Consider a repeat BMD and Vertebral Fracture Assessment (VFA) exam in 2 years or sooner if medically necessary, to reassess this patient's status. Reported by: SHARON BENSON M.D. on 12/17/2022 3:45:00 PM.
== END ==
PROVIDERS: PCP Internal Medicine; Referring Provider Internal Medicine; Visit Provider Internal Medicine
DX: Z78.0 Asymptomatic menopausal state (principal); M85.88 Other specified disorders of bone density and structure, other site
CPT/HCPCS: 77080

== ENCOUNTER 2023-01-09 13:37 | Day surgery (SDC) | payer OTHER, SELFPAY ==
[2018-07-10 15:24] VITALS: BMI 20.9
[2023-01-09 13:53] VITALS: BP 169/102; PULSE 90; RESP 17; TEMP 36.1; O2SAT 98; BMI 18.5
[2023-01-09] MEDS: LACTATED RINGERS 1,000 ML 125 ML IV (14:06)
--- NOTE | 2023-01-09 14:37 | P.HP_ITS ---
History of Present Illness History of Present Illness Chief complaint: Colonoscopy Narrative: Known CLL with need for colorectal cancer screening. She had colonoscopy once per for over 5 years ago but records have been lost. [facility] Medical History Breast cancer, left (~2011) CLL (chronic lymphocytic leukemia) Colostomy in place COPD (chronic obstructive pulmonary disease) Depression Erythrocytosis Glaucoma History of UTI Hypertension Impaired vision Lack of appetite Mass of appendix Mild protein-calorie malnutrition Other bursal cyst, unspecified wrist Small bowel obstruction Wears dentures Surgical History H/O: hysterectomy History of colonoscopy S/P small bowel resection Status post laparoscopic colectomy Tubal ligation status Family History Mother No known health problems Father No known health problems Social History household members: spouse Smoking Status: Current every day smoker alcohol intake: current substance use type: does not use Meds Home Medications and Allergies Home Medications Medication Instructions Recorded Confirmed Type aspirin 81 mg tablet,delayed 1 tab PO DAILY 11/15/17 01/09/23 History release (Aspir-) multivitamin 1 tab PO DAILY 11/15/17 01/09/23 History calcium carbonate 500 mg calcium 500 mg PO DAILY ##0 12/24/17 01/09/23 History (1,250 mg) tablet (Calcium 500) latanoprost 0.005 % eye drops 1 drp ophthalmic (eye) BEDTIME 12/24/17 01/09/23 History hydrochlorothiazide 12.5 mg capsule 25 mg PO DAILY 11/25/18 01/09/23 History estradiol 0.01% (0.1 mg/gram) 0.5 gram vaginal DAILY #42.5 grams 04/29/19 01/09/23 Rx vaginal cream (Estrace) irbesartan 75 mg tablet 75 mg PO DAILY 11/21/22 01/09/23 History Allergies Allergy/AdvReac Type Severity Reaction Status Date / Time lisinopril Allergy Severe SWELLING Verified 05/11/22 17:10 LIPS, TONGUE Exam Vital Signs (past 8 hours): - 01/09/23 13:53 Temperature 97 F L Pulse Rate 90 Respiratory Rate 17 Blood Pressure 169/102 H Pulse Oximetry 98 Narrative Exam Narrative: Oropharynx free of lesions Chest clear to auscultation percussion the decreased breath sounds throughout Cardiac exam reveals no S3 or murmur Assessment & Plan Assessment & Plan narrative: Need for colorectal cancer screening. Patient however only took half the prep before she was called to come and and then she immediately took another 16 oz. I expect she is not completely clean plus she has within an hour and a half of her last oral prep. I thank you be best to reschedule her for another occasion when she has a more complete prep and nothing within 6-8 hours.
--- NOTE | 2023-01-09 14:53 | PM.HP.1 ---
History of Present Illness History of Present Illness Date Patient Seen: 01/09/23 Chief complaint: Colonoscopy Narrative: Known CLL with need for colorectal cancer screening. She had colonoscopy once per for over 5 years ago but records have been lost. [facility] Medical History Breast cancer, left (~2011) CLL (chronic lymphocytic leukemia) Colostomy in place COPD (chronic obstructive pulmonary disease) Depression Erythrocytosis Glaucoma History of UTI Hypertension Impaired vision Lack of appetite Mass of appendix Mild protein-calorie malnutrition Other bursal cyst, unspecified wrist Small bowel obstruction Wears dentures Surgical History H/O: hysterectomy History of colonoscopy S/P small bowel resection Status post laparoscopic colectomy Tubal ligation status Family History Mother No known health problems Father No known health problems Social History household members: spouse Smoking Status: Current every day smoker alcohol intake: current substance use type: does not use Meds Home Medications and Allergies Home Medications Medication Instructions Recorded Confirmed Type aspirin 81 mg tablet,delayed 1 tab PO DAILY 11/15/17 01/09/23 History release (Aspir-) multivitamin 1 tab PO DAILY 11/15/17 01/09/23 History calcium carbonate 500 mg calcium 500 mg PO DAILY ##0 12/24/17 01/09/23 History (1,250 mg) tablet (Calcium 500) latanoprost 0.005 % eye drops 1 drp ophthalmic (eye) BEDTIME 12/24/17 01/09/23 History hydrochlorothiazide 12.5 mg capsule 25 mg PO DAILY 11/25/18 01/09/23 History estradiol 0.01% (0.1 mg/gram) 0.5 gram vaginal DAILY #42.5 grams 04/29/19 01/09/23 Rx vaginal cream (Estrace) irbesartan 75 mg tablet 75 mg PO DAILY 11/21/22 01/09/23 History Allergies Allergy/AdvReac Type Severity Reaction Status Date / Time lisinopril Allergy Severe SWELLING Verified 05/11/22 17:10 LIPS, TONGUE Exam Vital Signs (past 8 hours): - 01/09/23 13:53 Temperature 97 F L Pulse Rate 90 Respiratory Rate 17 Blood Pressure 169/102 H Pulse Oximetry 98 Narrative Exam Narrative: Oropharynx free of lesions Chest clear to auscultation percussion no with this decreased breath sounds Cardiac exam reveals no S3 or murmur Assessment & Plan Assessment & Plan narrative: CLL with need for colorectal cancer screening. Risks, benefits, alternatives have been explained.
--- NOTE | 2023-01-09 14:55 | PM.OP.COLON ---
Operative Date/Time/Diagnoses Date of procedure: 01/09/23 Pre-op diagnosis: See indication and findings Procedure & Clinicians Study performed: Colonoscopy Indications: Screening. Previous history of perforation at the time of colonoscopy several years ago. Surgeon: Frandy Miguel Procedure Notes Procedure in detail: After informed consent was obtained the patient was placed in left lateral decubitus position. The video colonoscope was introduced the rectum slowly advanced. I was then able to advance the colonoscope beyond about 40 cm where there seemed to be a very difficult tight adhesive segment. It was elected not to push further. On slow withdrawal mucosa was carefully examined. The scope was removed. The patient tolerated procedure well. Blood loss none Complications none Sedation mac Findings 1. Normal colonoscopy to 40 cm. I would not suggest further colonoscopy for Ms. Shoemaker. If complete colon cancer screening is identified as necessary I would consider virtual colonoscopy 1st. I will leave this up to primary care.
[2023-01-09 15:53] VITALS: BP 129/79; PULSE 81; TEMP 35.9; O2SAT 98
[2023-01-09 15:58] VITALS: BP 131/85; PULSE 72; RESP 17; O2SAT 98
[2023-01-09 16:03] VITALS: BP 145/86; PULSE 73; RESP 22; TEMP 36.8; O2SAT 97
[2023-01-09 16:05] VITALS: BP 143/88; PULSE 69; RESP 19; O2SAT 98
== END 2023-01-09 16:57 | disposition home or self-care (01) ==
PROVIDERS: PCP Internal Medicine; Referring Provider Internal Medicine Gastroenterology; Visit Provider Internal Medicine Gastroenterology
PROC: 0DJD8ZZ Inspection of Lower Intestinal Tract, Via Natural or Artificial Opening Endoscopic (ICD-10-PCS; CPT 45378; principal; 2023-01-09 14:00)
DX: Z12.11 Encounter for screening for malignant neoplasm of colon (principal); I10 Essential (primary) hypertension; J44.9 Chronic obstructive pulmonary disease, unspecified; F17.200 Nicotine dependence, unspecified, uncomplicated
CPT/HCPCS: G0104; J2704

== ENCOUNTER → 2023-03-30 14:47 | Outpatient (CLI) | payer OTHER, SELFPAY ==
[2018-07-10 15:24] VITALS: BMI 20.9
--- NOTE | 2023-03-30 14:47 | DI.MG.S_ITS ---
BILATERAL DIGITAL SCREENING MAMMOGRAM 3D/2D WITH CAD: 03/30/2023 CLINICAL: Routine screening. Comparison is made to exams dated: 03/05/2022 mammogram, 01/20/2021 mammogram, and 01/19/2020 mammogram - [facility]. Both breasts are heterogeneously dense, which may obscure small masses (category c / 51-75% glandular tissue). Current study was also evaluated with a Computer Aided Detection (CAD) system. No significant masses, calcifications, or other findings are seen in either breast. There has been no significant interval change. IMPRESSION: NEGATIVE There is no mammographic evidence of malignancy. A 1 year screening mammogram is recommended. Based on the Tyrer Cuzick model (a risk assessment model) the patient's lifetime risk is 3.3% and her 10 year risk is 0.0%. According to the ACR, ACS, and NCCN guidelines, an annual breast MRI exam along with mammogram is recommended if the patient's lifetime risk is 20% or greater. This exam was interpreted at Station ID: [id number]. NOTE: For mammograms, a report in lay terms will be sent to the patient. Approximately 15% of breast malignancies will not be visualized mammographically. In the management of a palpable breast mass, a negative mammogram must not discourage biopsy of a clinically suspicious lesion. Electronically Signed By: Ashley bansal/tennille:04/01/2023 13:08:18 letter sent: Normal Exam ACR BI-RADS Category 1: Negative [id number]
== END ==
PROVIDERS: PCP Internal Medicine; Referring Provider Internal Medicine; Visit Provider Internal Medicine
DX: Z12.31 Encounter for screening mammogram for malignant neoplasm of breast (principal)
CPT/HCPCS: 77063; 77067

== ENCOUNTER 2024-04-08 17:11 | Inpatient (IN) | payer MEDICARE, SELFPAY ==
[2018-07-10 15:24] VITALS: BMI 20.9
[2024-04-08] VITALS (14 sets, daily range): BP systolic 119–148; BP diastolic 78–99; PULSE 93–114; RESP 14–24; TEMP 36.4; O2SAT 93–98; BMI 12.8
--- NOTE | 2024-04-08 17:47 | DI.CT.S_ITS ---
PROCEDURE: CT HEAD/BRAIN WO CON INDICATIONS: ams TECHNIQUE: Noncontrast 4.5 mm thick angled axial sections acquired from the foramen magnum to the vertex, with coronal and sagittal reformats. For radiation dose reduction, the following was used: automated exposure control, adjustment of mA and/or kV according to patient size. COMPARISON: None. FINDINGS: Image quality: Diagnostic. CSF spaces: Basal cisterns are patent. No extra-axial fluid collections. The ventricles are symmetric in size and shape. Brain: No intracranial bleeds or masses. There is cerebral volume loss for age, with resultant ventricular and sulcal prominence. There are periventricular and deep white matter chronic small vessel ischemic changes. There is intracranial internal carotid artery atherosclerosis. Skull and face: Calvarium and visualized facial bones appear intact, without suspicious lesions. Sinuses: Visualized sinuses and mastoids are clear. IMPRESSION: No acute intracranial pathology. Dictated by: Keven Arcos M.D. on 04/08/2024 at 19:01 Approved by: Keven Arcos M.D. on 04/08/2024 at 19:02
[2024-04-08 17:58] LABS: Lactate (Lactic Acid) 3.2 mmol/L (0.7-2.1)
[2024-04-08 17:59] LABS: Alanine Aminotransferase 41 IU/L (<35); Albumin 4.5 g/dL (3.5-5.0); Albumin Globulin Ratio 1.2 (1.0-2.8); Alkaline Phosphatase 140 U/L (38-126); Aspartate Aminotransferase 61 IU/L (14-36); BUN Creatinine Ratio 58.2 (6-22); Bilirubin Total 1.1 mg/dL (0.2-1.3); Blood Urea Nitrogen 53 mg/dL (7-17); Carbon Dioxide 26 mmol/L (22-32); Chloride 114 mmol/L (98-107); Creatine Kinase 62 U/L (30-135); Estimated Glomerular Filt Rate > 60 mL/min (>60); Globulin 3.8 g/dL (1.7-4.1); Glucose 107 mg/dL (80-110); HEMOLYSIS 29 (0-50); Lipase 29 U/L (23-300); Magnesium 2.6 mg/dL (1.6-2.3); Phosphorous 4.6 mg/dL (2.8-4.1); Potassium 4.5 mmol/L (3.4-5.1); Sodium 154 mmol/L (137-145); Total Protein 8.3 g/dL (6.3-8.2)
--- NOTE | 2024-04-08 18:05 | EKG_ITS ---
[place] [id number] [place] [id number] Test Date: 2024-04-08 Pat Name: [facility] Department: Room: Gender: Female Collections Assistant: SHANNON : 1945 Requested By: Order Number: [id number] Reading MD: Bobby Almeida Measurements Intervals [place] Rate: 111 P: 80 AK: 130 QRS: 65 QRSD: 86 T: 31 QT: 350 QTc: 476 Interpretive Statements Sinus tachycardia Biatrial enlargement Left ventricular hypertrophy with repolarization abnormality ( Sokolow-Armando , Heber product ) Electronically Signed On 04-08-2024 18:10:31 PDT by Bobby Almeida
[2024-04-08 18:07] LABS: Hematocrit 51.9 % (36-46); Hemoglobin 16.2 g/dL (12.0-16.0); Mean Corpuscular HGB Conc 31.2 % (30-36); Mean Corpuscular Hemoglobin 28.2 PG (26-34); Mean Corpuscular Volume 90.5 fL (80-100); Platelet Count 209 X10^3/uL (150-400); Red Blood Cell Count 5.74 X10^6/uL (4.0-5.2); Red Cell Distribution Width 14.7 % (11.6-14.8)
[2024-04-08 18:16] LABS: Add Manual Diff / Slide Review YES; White Blood Cell Count 280.7 X10^3/uL (4.5-11.0)
[2024-04-08] MEDS: SODIUM CHLORIDE 0.9% 1,000 ML 500 ML IV (18:21)
[2024-04-08 18:41] LABS: Acetaminophen < 10 ug/mL (10-30); Ethanol (ETOH) < 10 mg/dL; Salicylate < 1.0 mg/dL (<20)
--- NOTE | 2024-04-08 18:47 | CM.IDA ---
Initial DCP Assessment Note/ ED SET STAFF FITTER Note Patient is 78 y/o female who presents to ED via EMS after patient's son calls [employer] for wellness check after he was unable to reach his mother for two weeks. Patient's son Michele lives in [place] and he was trying to plan a visit to see his mother. There is concern about patient's ability to manage ADLs at home alone. Patient's former spouse is in the process of patient and residing in [place], he is listed as Medical DPOA at this time. Patient has hx of Chronic Lymphocytic Leukemia with no recent follow up from Oncology, hx of cecum mass, acute renal failure, Breast Cancer, COPD, and Hypertension Patient's PCP is Sayra Russo, patient states she has not been to her doctor in at least a year. Patient has [facility] [employer] Advantage insurance. [facility] report that they initiated referral with Community Electrical Logger Daniel Black and Daniel arrived at patient's home with EMS. It is reported that patient as able to slowly ambulate to the door after several minutes of waiting. It is reported that outside of the home there was food from [employer] Whe[employer]. EMS provides phone number for patient's son Michele (Ph. # [phone]) and patient's neighbor Andrea (Ph.# [phone]) SET STAFF FITTER enters room to meet with patient. Patient presents as frail and is A/O to self, person and place. Patient states it is Saturday in July and when asked the year patient states Saturday. Patient states she is okay at home. Patient endorses she resides alone in [place] and her former spouse Ned is in [place] in the process of a divorce with her. She states she is planning to buy his half of the house in the divorce. Patient states that she just set up [employer] Whe[employer] for herself yesterday and last ate a meal from them yesterday. Patient states she manages most ADLs but states she is not cooking or cleaning regularly, patient states that she uses a cane at baseline. Patient states that she can drive but has not left to house to drive anywhere recently. Patient states she feels safe at home, has lived there since 2004 and has supportive neighbors. Patient acknowledges that she would benefit from more support at home. Per EMR, patient has hx of Valentina ARREGUIN referral, patient states she does not recall this. SET STAFF FITTER asks about SNF rehab if recommended and patient states that it is not an ideal plan for her but she would be agreeable if needed. Patient gives consent for SET STAFF FITTER to call her son Michele. SET STAFF FITTER calls Michele and it is reported that he has been trying to contact is mom for a few weeks as he was planning to get plane tickets to visit her on 04/20/24 but he was unable to get a hold of her. He states that he can fly out here as soon as Saturday04/10/24. He states he manages his own work schedule and works from home. He states that he has been trying to get his mom to add him as secondary DPOA since her former spouse is the only one listed and lives in [place] but she has not done so. Michele states he is an only child and patient has no other family members. Michele states that he last visited his mother about 6 months ago or so and it is reported that she was doing alright with ADLs. He reports that he talks to her on the phone 1-2 times a month and most recently she had her cable turned off and he was working with her to get it turned back on. SET STAFF FITTER provides son with ED phone number and he requests updates regarding patient. Patient's medical evaluation is pending but patient's labs come back with significantly elevated WBC and elevated sodium. Patient likely to be admitted. Plan: patient likely to be admitted for further treatment and evaluation, patient would benefit from OT/ PT eval with [facility], SNF rehab vs. Home with Home Health and caregiver support. F/u with patient's son who can coordinate via phone with potential plans to fly here from [place] as soon as Saturday. Daniel Black [facility] Electrical Logger plans to check in regarding patient tomorrow. SARAH Zeng Discharge Planning/Care Management CM Discharge Assessment Start: 04/08/24 18:18 Freq: Status: Active Protocol: Document 04/08/24 18:43 LN (Rec: 04/08/24 18:46 LN [id number]) Discharge Planning Assessment Assigned Separations Scientist SARAH Renteria DPOA/Assigned Designee Name Former Spouse/Ned Contact Information [phone] Advance Directives? Yes Advance Directives on File Yes History Provided By Patient,Family Member,Medical Record Has Patient been admitted in last 30 No days? Prior Living Arrangements House Household Members none Type of transporation used prior to Drives own vehicle admit Independent with ADL's No Is patient alert and oriented? No Needs Assistance With Meal Prep,Home Chores / Shopping Caregiver for Another No DME Already Rented / Owned Cane Comment Patient does not have preference for SNF rehab but would agree to it if necessary . Patient in need of caregiver support and home health if d/ c home. Additional Comment SNF vs. HH and caregiver, pending PT/OT eval Medicare Choice List Provided No Please Provide Date Initial DC 04/08/24 Assessment Was Performed
[2024-04-08 18:58] LABS: Neutrophils Absolute Manual 11228 /uL (3000-5900); RBC Morphology Normal Morphology; Smudge Cells 2+; Total Cells Counted 100
--- NOTE | 2024-04-08 19:11 | ED.GENADULT ---
HPI - General Adult General Chief complaint: Weakness Stated complaint: Cant Care for self Time Seen by Provider: 04/08/24 17:47 Source: patient and EMS Mode of arrival: EMS Limitations: altered mental status History of Present Illness HPI narrative: Patient is a 78-year-old female. No reported history of dementia that can be found in her past medical history. She does have history of CLL. She lives independently. Per report she had not been heard from in several weeks by her family who lives out of state. It will for check was initiated on the patient. Paramedics and the community solderer torch found the patient in her home. She had several days worth of meals on wheels trace outside of her door that appeared to have not been eaten. They knocked on the door for quite a long time and the patient finally came to the door. Per report she was naked from the waist down. Was confused. Clinically he was dehydrated with very dry mucous membranes. There was question as to whether not she had had anything to eat or drink in several days. Patient can not provide any history. 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 Patient denies chest pain, shortness of breath, abdominal pain. Denies headache. Denies any extremity injuries. States she has been drinking ?a juice? for the past couple days. She denies any vomiting. Related Data Home Medications Medication Instructions Recorded Confirmed aspirin 81 mg tablet,delayed 1 tab PO DAILY 11/15/17 04/08/24 release (Aspir-) multivitamin 1 tab PO DAILY 11/15/17 04/08/24 calcium carbonate (Calcium 500) 500 mg PO DAILY ##0 12/24/17 04/08/24 latanoprost 0.005 % eye drops 1 drp ophthalmic (eye) BEDTIME 12/24/17 04/08/24 hydrochlorothiazide 12.5 mg capsule 25 mg PO DAILY 11/25/18 04/08/24 irbesartan 75 mg tablet 75 mg PO DAILY 11/21/22 04/08/24 Allergies Allergy/AdvReac Type Severity Reaction Status Date / Time lisinopril Allergy Severe SWELLING Verified 05/11/22 17:10 LIPS, TONGUE Review of Systems Review of Systems Narrative: See HPI Patient History Medical History Breast cancer, left (~2011) Small bowel obstruction COPD (chronic obstructive pulmonary disease) Lack of appetite Wears dentures Impaired vision Depression History of UTI Colostomy in place Mild protein-calorie malnutrition Hypertension Mass of appendix CLL (chronic lymphocytic leukemia) Erythrocytosis Other bursal cyst, unspecified wrist Glaucoma Surgical History H/O: hysterectomy History of colonoscopy S/P small bowel resection Status post laparoscopic colectomy Tubal ligation status Family History Mother No known health problems Father No known health problems Social History household members: none Smoking Status: Current every day smoker alcohol intake: never substance use type: does not use Smoking Status: Current every day smoker alcohol intake frequency: 0-2 drinks per day Substance Use Type: does not use Exam Initial Vital Signs Initial Vital Signs: Vital Signs Pulse Rate 114 H 04/08/24 17:28 Respiratory Rate 21 04/08/24 17:28 Pulse Oximetry 95 04/08/24 17:28 Const General: No ill appearing and No well hydrated Nutritional Appearance: cachectic HENMT Mouth: No moist mucous membranes (Very dry mucous membranes) Resp Effort & Inspection: normal respiratory effort Auscultation: clear to auscultation bilaterally Cardio Rate: tachycardic Rhythm: regular rhythm GI Inspection: normal to inspection and non-distended Palpation: soft and No tender Skin Other: No skin rashes. Poor skin turgor. Neuro Other: Patient was no lateralizing signs of stroke. No facial droop. She was obviously confused but the words that she does say are clear. She moves all 4 extremities equally. Extrem Other: No gross deformities. Scores GCS [place] coma scale eye opening: Spontaneous Ascenc[place] coma scale verbal response: Confused [place] coma scale motor response: Obey commands [place] coma scale total score: 14 Course Orders Ordered: ED Orders 04/08/24 17:27 Acetaminophen Stat CK [Creatine Kinase] Stat Complete Blood Count AUTO DIFF Stat Comprehensive Metabolic Panel Stat Ethanol (ETOH) Stat Lactate (Lactic Acid) Stat Lipase Stat MAG [Magnesium] Stat PHOS [Phosphorous] Stat Pathologist Review (for CBC) Stat Salicylate Stat TSH [Thyroid Stimulating Hormone] Stat 04/08/24 17:47 CT head/brain wo con Stat 04/08/24 17:58 Consult to MACHINE LEATHER TRIMMER - Monumental Stonemason Stat 04/08/24 18:05 EKG-12 Lead Stat 04/08/24 19:43 XR chest 1V Stat 04/08/24 20:48 Urine Drug Screen, Rapid Stat Acetaminophen (Acetaminophen 325 Mg Tablet) 650 mg PO Q6H PRN PRN Reason: Fever/Mild Pain (1-3) Heparin Sodium (Porcine) (Heparin 5,000 Unit/Ml Vial) 5,000 unit SUBCUT BID DOMINIQUE Last Admin: 04/08/24 23:27 Dose: 5,000 unit Documented By: Sodium Chloride (Normal Saline 0.9%) 1,000 mls @ 100 mls/hr IV CONT DOMINIQUE Last Admin: 04/08/24 23:22 Dose: 100 mls/hr Documented By: Ceftriaxone Sodium 1,000 mg/ (Sodium Chloride) 100 mls @ 200 mls/hr IV Q24H DOMINIQUE Naloxone HCl (Naloxone 0.4 Mg/Ml Vial) 0.2 mg IV Q2MIN PRN PRN Reason: Opiate Reversal Ondansetron HCl (Ondansetron 4 Mg/2 Ml Inj) 4 mg IV Q8HR PRN PRN Reason: Nausea And Vomiting Discontinued Medications Ceftriaxone Sodium (Ceftriaxone 2,000 Mg Vial) 1,000 mg IM NOW ONE Stop: 04/08/24 20:47 Last Admin: 04/08/24 23:31 Dose: Not Given Documented By: Sodium Chloride (Normal Saline 0.9%) 1,000 mls @ 500 mls/hr IV BOLUS ONE Stop: 04/08/24 19:47 Last Infusion: 04/08/24 20:34 Dose: Infused Documented By: Admin: 04/08/24 18:21 Dose: 500 mls/hr Documented By: KARINA Ceftriaxone Sodium 1,000 mg/ (Sodium Chloride) 100 mls @ 200 mls/hr IV NOW ONE Stop: 04/08/24 21:08 Last Infusion: 04/09/24 00:00 Dose: Infused Documented By: Admin: 04/08/24 23:23 Dose: 200 mls/hr Documented By: Azithromycin 500 mg/ Dextrose 250 mls @ 250 mls/hr IV NOW ONE Stop: 04/08/24 21:08 Last Admin: 04/08/24 23:59 Dose: 250 mls/hr Documented By: Vital Signs Vital signs: Vital Signs - 8 hr 04/08/24 17:28 04/08/24 17:30 04/08/24 17:30 Temperature Pulse Rate 114 H 112 H Respiratory Rate 21 24 Blood Pressure 119/78 Pulse Oximetry 95 94 Oxygen Delivery Method 04/08/24 17:35 04/08/24 18:00 04/08/24 18:00 Temperature 97.5 F L Pulse Rate 110 H 104 H Respiratory Rate 18 21 Blood Pressure 119/78 127/86 Pulse Oximetry 93 93 Oxygen Delivery Method Room Air 04/08/24 18:30 04/08/24 18:59 04/08/24 18:59 Temperature Pulse Rate 105 H 100 H Respiratory Rate 20 19 Blood Pressure 129/83 Pulse Oximetry 97 95 Oxygen Delivery Method 04/08/24 19:00 04/08/24 19:00 04/08/24 19:15 Temperature Pulse Rate 101 H 103 H Respiratory Rate 18 22 Blood Pressure 131/87 Pulse Oximetry 96 97 Oxygen Delivery Method Room Air 04/08/24 19:15 04/08/24 19:30 04/08/24 19:30 Temperature Pulse Rate 98 H Respiratory Rate 19 Blood Pressure 123/84 127/83 Pulse Oximetry 96 Oxygen Delivery Method 04/08/24 19:45 04/08/24 19:45 04/08/24 20:00 Temperature Pulse Rate 97 H Respiratory Rate 20 Blood Pressure 139/89 138/86 Pulse Oximetry 98 Oxygen Delivery Method 04/08/24 20:00 04/08/24 20:15 04/08/24 20:15 Temperature Pulse Rate 97 H 93 H Respiratory Rate 18 14 Blood Pressure 144/87 H Pulse Oximetry 98 98 Oxygen Delivery Method 04/08/24 20:30 04/08/24 20:30 Temperature Pulse Rate 97 H Respiratory Rate 20 Blood Pressure 148/91 H Pulse Oximetry 98 Oxygen Delivery Method Medical Decision Making Medical Records Medical records reviewed: Yes I reviewed the patient's medical records. Lab Data Lab results reviewed: Yes I reviewed the patient's lab results. 04/08/24 17:27 04/08/24 17:27 Labs: Lab Results 04/08/24 04/08/24 Range/Units 17:27 19:41 WBC 280.7 H* (4.5-11.0) X10^3/uL RBC 5.74 H (4.0-5.2) X10^6/uL Hgb 16.2 H (12.0-16.0) g/dL Hct 51.9 H (36-46) % MCV 90.5 (80-100) fL MCH 28.2 (26-34) PG MCHC 31.2 (30-36) % RDW 14.7 (11.6-14.8) % Plt Count 209 (150-400) X10^3/uL Neut % (Auto) Not Reportable Lymph % (Auto) Not Reportable [place] % (Auto) Not Reportable Eos % (Auto) Not Reportable Baso % (Auto) Not Reportable Lymph # (Auto) Not Reportable [place] # (Auto) Not Reportable Baso # (Auto) Not Reportable Total Counted 100 Seg Neutrophils % 4.0 L (38-70) % Lymphocytes % (Manual) 96.0 H (25-45) % Neutrophils # (Manual) 93976 H (6821-4595) /uL Smudge Cells 2+ H RBC Morphology Normal morphology Sodium 154 H (137-145) mmol/L Potassium 4.5 (3.4-5.1) mmol/L Chloride 114 H (98-107) mmol/L Carbon Dioxide 26 (22-32) mmol/L BUN 53 H (7-17) mg/dL Creatinine 0.91 (0.52-1.04) mg/dL Estimated GFR > 60 (>60) mL/min BUN/Creatinine Ratio 58.2 H (6-22) Glucose 107 (80-110) mg/dL Lactate 3.2 H 2.1 (0.7-2.1) mmol/L Calcium 10.0 (8.4-10.2) mg/dL Phosphorus 4.6 H (2.8-4.1) mg/dL Magnesium 2.6 H (1.6-2.3) mg/dL Total Bilirubin 1.1 (0.2-1.3) mg/dL AST 61 H (14-36) IU/L ALT 41 H (<35) IU/L Alkaline Phosphatase 140 H (38-126) U/L Total Creatine Kinase 62 (30-135) U/L Total Protein 8.3 H (6.3-8.2) g/dL Albumin 4.5 (3.5-5.0) g/dL Globulin 3.8 (1.7-4.1) g/dL Albumin/Globulin Ratio 1.2 (1.0-2.8) Lipase 29 (23-300) U/L TSH 2.89 (0.47-4.68) uIU/mL Salicylates < 1.0 (<20) mg/dL Acetaminophen < 10 (10-30) ug/mL Ethyl Alcohol < 10 ( - 10) mg/dL Imaging Data CT scan - head: Radiologist's Impression: PROCEDURE: CT HEAD/BRAIN WO CON INDICATIONS: ams TECHNIQUE: Noncontrast 4.5 mm thick angled axial sections acquired from the foramen magnum to the vertex, with coronal and sagittal reformats. For radiation dose reduction, the following was used: automated exposure control, adjustment of mA and/or kV according to patient size. COMPARISON: None. FINDINGS: Image quality: Diagnostic. CSF spaces: Basal cisterns are patent. No extra-axial fluid collections. The ventricles are symmetric in size and shape. Brain: No intracranial bleeds or masses. There is cerebral volume loss for age, with resultant ventricular and sulcal prominence. There are periventricular and deep white matter chronic small vessel ischemic changes. There is intracranial internal carotid artery atherosclerosis. Skull and face: Calvarium and visualized facial bones appear intact, without suspicious lesions. Sinuses: Visualized sinuses and mastoids are clear. IMPRESSION: No acute intracranial pathology. Chest x-ray: Radiologist's Impression: PROCEDURE: XR CHEST 1V INDICATIONS: pneumonia TECHNIQUE: One view of the chest was acquired. COMPARISON: None (unsuccessful image retrieval of priors). FINDINGS: Surgical changes and devices: None. Lungs and pleura: Left upper lobe opacification along with left perihilar opacification extending to the lung base. Small left pleural effusion. No right pleural effusion. No pneumothorax. Background of emphysema. Hyperinflation. Mediastinum: Aortic arch calcifications. Mediastinal contours appear normal. Heart size is normal. Bones and chest wall: No suspicious bony lesions. Overlying soft tissues appear unremarkable. IMPRESSION: Likely multifocal pneumonia involving the left upper and lower lobes with a small left pleural effusion. ECG Data Attestation: I personally reviewed and interpreted this ECG as follows: Interpretation: Sinus tachycardia Ventricular rate of 111 Normal axis Normal QRS LVH Nonspecific ST T wave changes MDM Narrative Medical decision making narrative: Unsure how long the patient has gone without anything to eat or drink. Potentially several days. She was clinically dehydrated with very dry mucous membranes and tachycardia and poor skin turgor. She was not hypotensive. She was confused. She knows she was in the hospital but does not have a clear understanding of why she was here. Low suspicion for an acute CVA she does not have any lateralizing neurologic signs. Her head CT is unremarkable. No other signs of trauma. She does have a leukocytosis of greater than 200. Review of medical record shows she does have history of CLL. Her last labs were approximately 1 year ago where her leukocytosis was 80. Her last note from Oncology was approximately 18 months ago. It does not appear that she was on any specific treatment for CLL. I discussed the case with Dr. Walters with oncology who recommended a peripheral smear and manual diff done of her blood. If she has greater than 20% blasts then she would be more consistent with an acute leukemia however he felt that she did not specifically need transferred for this has a now and that the further evaluation can be done routine. Chest x-ray shows multifocal pneumonia however she clinically does not have pneumonia she was not hypoxic in his clear lung exam and does not have a cough. Because of her clinical presentation she was given Rocephin and azithromycin. Given her clinical presentation patient does require admission to the hospital. Discussed the case Dr. Munoz who will admit for further evaluation. Discharge Plan Departure Patient Disposition: Admitted As Inpatient Clinical Impression: Dehydration, Chronic lymphocytic leukemia, Confusion, Hypernatremia, Pneumonia Admit Date/Time: 04/08/24 20:45 Admit Provider: Diallo Munoz
--- NOTE | 2024-04-08 19:20 | PC.NURSE ---
Pt resting quietly with eyes closed, resps even and not labored. No distress noted at this time. Pt rouses easily to verbal stimuli and speaks clearly. Pt remains connected to blood pressure, cardiac, resp, and pulse ox monitors with alarms on and audible. Call light within reach.
[2024-04-08 19:26] LABS: Reflexed Lactate in 2 Hours Y
--- NOTE | 2024-04-08 19:43 | DI.RAD.S_ITS ---
PROCEDURE: XR CHEST 1V INDICATIONS: pneumonia TECHNIQUE: One view of the chest was acquired. COMPARISON: None (unsuccessful image retrieval of priors). FINDINGS: Surgical changes and devices: None. Lungs and pleura: Left upper lobe opacification along with left perihilar opacification extending to the lung base. Small left pleural effusion. No right pleural effusion. No pneumothorax. Background of emphysema. Hyperinflation. Mediastinum: Aortic arch calcifications. Mediastinal contours appear normal. Heart size is normal. Bones and chest wall: No suspicious bony lesions. Overlying soft tissues appear unremarkable. IMPRESSION: Likely multifocal pneumonia involving the left upper and lower lobes with a small left pleural effusion. Dictated by: Viral Kraft M.D. on 04/08/2024 at 20:59 Approved by: Viral Kraft M.D. on 04/08/2024 at 21:00
[2024-04-08 19:58] LABS: Lactate 2HR (Lactic Acid Rflx) 2.1 mmol/L (0.7-2.1)
[2024-04-08 20:30] LABS: Thyroid Stimulating Hormone 2.89 uIU/mL (0.47-4.68)
--- NOTE | 2024-04-08 20:52 | PC.NURSE ---
Pt awake and alert speaking with staff. Pt assisted to bedside commode without incident. Urine sample provided.
[2024-04-08 21:02] LABS: UR Morphine/Opiate cutoff 300 Negative (Negative); Ur Creatinine Normal (Normal); Ur Specific Gravity Normal (Normal); Urine Amphetamines Negative (Negative); Urine Barbiturates Negative (Negative); Urine Benzodiazepines Negative (Negative); Urine Cocaine Negative (Negative); Urine MDMA Negative (Negative); Urine Methadone Negative (Negative); Urine Methamphetamines Negative (Negative); Urine Oxycodone Negative (Negative); Urine Phencyclidine Negative (Negative); Urine Tetrahydrocannabinol Negative (Negative); Urine Tricyclic Antidepressant Negative (Negative); Urine pH Normal (Normal)
--- NOTE | 2024-04-08 21:27 | PC.NURSE ---
Spoke with Michele (son) to give update.
[2024-04-08] MEDS: SODIUM CHLORIDE 0.9% 1,000 ML 100 ML IV (23:22)
[2024-04-08] MEDS: cefTRIAXone 1,000 MG in SODIUM CHLORIDE 0.9% 100 ML 200 MG IV (23:23)
[2024-04-08] MEDS: HEPARIN 5,000 UNIT/ML VIAL 5000 UNIT SUBCUT (23:27)
[2024-04-08] MEDS: AZITHROMYCIN 500 MG in DEXTROSE 5% IN WATER 250 ML 250 MG IV (23:59)
--- NOTE | 2024-04-09 05:42 | PM.HP.1 ---
History of Present Illness History of Present Illness Chief complaint: Cant Care for self Narrative: 78 year-old female with past medical history of CLL being followed by hematology at [facility], COPD non o2 dependent, depression, hypertension, and small bowel obstruction presents with generalized weakness, confusion and unable to care for self at home. Per report, the patient was found by EMS to be confused and naked down from the waist. Per report, the patient has not picked up the food (Meals on wheels) for a few weeks. Of note during the time my interview, the patient was still confused and unable to give any history. Per ER physician the patient was confused in the ER as well and unable to give any history. CT head was negative. WBC was 280s which is increased from last year in the 80s. Lactate 3.2. There was signs of dehydration sodium 154 and BUN 53. UA pending. Phosphorus 4.6 and magnesium 2.6. In our ER, the patient was given IV fluid as well as empiric IV ceftriaxone. Hematology oncology from [facility] was called and recommended that we admit the patient here for management and treatment of possible infection. In regards to severe Leukocytosis there?s no urgent intervention needed at this point per their recommendation but will need to follow up with hematology oncology post discharge for further treatment. Note CXR came back positive for pneumonia. Azithromycin was added. CT head negative. [facility] Medical History Breast cancer, left (~2011) Small bowel obstruction COPD (chronic obstructive pulmonary disease) Lack of appetite Wears dentures Impaired vision Depression History of UTI Colostomy in place Mild protein-calorie malnutrition Hypertension Mass of appendix CLL (chronic lymphocytic leukemia) Erythrocytosis Other bursal cyst, unspecified wrist Glaucoma Surgical History H/O: hysterectomy History of colonoscopy S/P small bowel resection Status post laparoscopic colectomy Tubal ligation status Family History Mother No known health problems Father No known health problems Social History household members: none Smoking Status: Current every day smoker alcohol intake: never substance use type: does not use Meds Home Medications and Allergies Home Medications Medication Instructions Recorded Confirmed Type aspirin 81 mg tablet,delayed 1 tab PO DAILY 11/15/17 04/08/24 History release (Aspir-) multivitamin 1 tab PO DAILY 11/15/17 04/08/24 History calcium carbonate (Calcium 500) 500 mg PO DAILY ##0 12/24/17 04/08/24 History latanoprost 0.005 % eye drops 1 drp ophthalmic (eye) BEDTIME 12/24/17 04/08/24 History hydrochlorothiazide 12.5 mg capsule 25 mg PO DAILY 11/25/18 04/08/24 History irbesartan 75 mg tablet 75 mg PO DAILY 11/21/22 04/08/24 History Allergies Allergy/AdvReac Type Severity Reaction Status Date / Time lisinopril Allergy Severe SWELLING Verified 05/11/22 17:10 LIPS, TONGUE Review of Systems Review of Systems ROS: Yes All systems reviewed with the patient and are negative except as otherwise documented Exam Vital Signs (past 8 hours): - 04/08/24 21:54 04/08/24 23:00 Temperature 97.5 F L Pulse Rate 103 H Respiratory Rate 18 Blood Pressure 124/99 H Pulse Oximetry 98 Oxygen Delivery Method Room Air Oxygen Flow Rate 0 Oxygen Delivery Method Room Air Oxygen Flow Rate 0 Narrative Exam Narrative: GENERAL: Thin female. The patient is not in any acute distressed. Awake and alert. HEENT: Nonicteric sclerae, PERRLA, EOMI. Oropharynx clear. Moist mucous membranes. Conjunctivae appear well perfused. HEART: Regular rate and rhythm without murmurs. No lower extremities edema. LUNGS: Clear to auscultation bilaterally. No wheezing, crackles or rhonchi ABDOMEN: Soft, positive bowel sounds, nontender. SKIN: No rash, no excessive bruising, petechiae, or purpura. NEUROLOGIC: AxO x 3. Cranial nerves II-XII intact without motor/sensory deficit. Objective Labs 04/08/24 17:27 04/08/24 17:27 Labs: Laboratory Results - last 24 hr 04/08/24 04/08/24 04/08/24 17:27 19:41 20:48 WBC 280.7 H* RBC 5.74 H Hgb 16.2 H Hct 51.9 H MCV 90.5 MCH 28.2 MCHC 31.2 RDW 14.7 Plt Count 209 Neut % (Auto) Not Reportable Lymph % (Auto) Not Reportable [place] % (Auto) Not Reportable Eos % (Auto) Not Reportable Baso % (Auto) Not Reportable Lymph # (Auto) Not Reportable [place] # (Auto) Not Reportable Baso # (Auto) Not Reportable Total Counted 100 Seg Neutrophils % 4.0 L Lymphocytes % (Manual) 96.0 H Neutrophils # (Manual) 00249 H Smudge Cells 2+ H RBC Morphology Normal morphology Sodium 154 H Potassium 4.5 Chloride 114 H Carbon Dioxide 26 BUN 53 H Creatinine 0.91 Estimated GFR > 60 BUN/Creatinine Ratio 58.2 H Glucose 107 Lactate 3.2 H 2.1 Calcium 10.0 Phosphorus 4.6 H Magnesium 2.6 H Total Bilirubin 1.1 AST 61 H ALT 41 H Alkaline Phosphatase 140 H Total Creatine Kinase 62 Total Protein 8.3 H Albumin 4.5 Globulin 3.8 Albumin/Globulin Ratio 1.2 Lipase 29 TSH 2.89 Salicylates < 1.0 U Opiates 300ng/mL cut Negative Ur Oxycodone Screen Negative Urine Methadone Screen Negative Acetaminophen < 10 Ur Barbiturates Screen Negative U Tricyclic Antidepress Negative Ur Phencyclidine Scrn Negative Ur Amphetamines Screen Negative U Methamphetamines Scrn Negative Ur MDMA Scrn (Ecstasy) Negative U Benzodiazepines Scrn Negative Urine Cocaine Screen Negative U Marijuana (THC) Screen Negative Urine pH Normal Urine Specific [place] Normal Ethyl Alcohol < 10 Ur Creatinine Normal Assessment & Plan Assessment & Plan narrative: Possible sepsis with pneumonia. Patient has leukoctosis and elevated lactic acid. note patient is however hemodynamically stable. Chest x-ray show sign of pneumonia. CT head and UA negative. Continue to treat underlying infection and monitor hemodynamics. CAP. Continue IV Ceftriaxone/Azithromycin. History of CLL with worsenibg leukocytosis. Note patient baseline WBC in the 80s now 280s. On-call manager of organizational development from [facility] was contact and recommend that we treat underlying infection. Will need follow up post discharge with oncology/hematology to be treated for significant leukocytosis from CLL as outpatient. Acute encephalopathy. Unclear ideology. Could be related to underyling infection. CT head negative. Now mentation improving with treatement given (IVF and IV Antibiotics). Will need to follow up TSH. PT/OT. Hypertension. Monitor blood pressure and resume home blood pressure medication accordingly. Dehydration. IVF. Generalized weakness.Failure to thrive. PT/OT as above and consider consulting social sciences professor for placement to SNF DVT prophylaxis heparin sub. Code status Full code will need to reconfirm in AM with patient's family. Disposition likely home vs SNF in 2 to 3 days. Time-Based Coding :: [TOTAL MINUTES] spent with patient and on the chart (including review of chart, obtaining history, exam, reviewing outside data, placing orders, documenting exam and treatment plan, and counseling patient) on [DATE].
[2024-04-09 05:59] VITALS: BP 134/95; PULSE 100; RESP 18; TEMP 37.2; O2SAT 96
[2024-04-09 06:18] LABS: Hematocrit 46.7 % (36-46); Mean Corpuscular HGB Conc 32.1 % (30-36); Mean Corpuscular Hemoglobin 28.7 PG (26-34); Mean Corpuscular Volume 89.6 fL (80-100); Platelet Count 159 X10^3/uL (150-400); Red Blood Cell Count 5.21 X10^6/uL (4.0-5.2); Red Cell Distribution Width 14.6 % (11.6-14.8)
[2024-04-09 06:19] LABS: Add Manual Diff / Slide Review YES
[2024-04-09 06:29] LABS: Alanine Aminotransferase 20 IU/L (<35); Albumin 3.9 g/dL (3.5-5.0); Albumin Globulin Ratio 1.1 (1.0-2.8); Alkaline Phosphatase 120 U/L (38-126); Aspartate Aminotransferase 40 IU/L (14-36); BUN Creatinine Ratio 59.7 (6-22); Bilirubin Total 0.8 mg/dL (0.2-1.3); Blood Urea Nitrogen 46 mg/dL (7-17); Calcium 8.9 mg/dL (8.4-10.2); Carbon Dioxide 23 mmol/L (22-32); Chloride 117 mmol/L (98-107); Estimated Glomerular Filt Rate > 60 mL/min (>60); Globulin 3.4 g/dL (1.7-4.1); Glucose 72 mg/dL (80-110); HEMOLYSIS 26 (0-50); Sodium 150 mmol/L (137-145); Total Protein 7.3 g/dL (6.3-8.2)
[2024-04-09 06:38] LABS: Neutrophils Absolute Manual 13260 /uL (3000-5900); RBC Morphology Normal Morphology; Total Cells Counted 100
[2024-04-09 06:39] LABS: Smudge Cells 2+
[2024-04-09 07:00] VITALS: BP 113/90; PULSE 78; RESP 16; TEMP 36.6; O2SAT 95
[2024-04-09] MEDS: HEPARIN 5,000 UNIT/ML VIAL 5000 UNIT SUBCUT ×2 (09:34→21:15)
[2024-04-09] MEDS: CALCIUM CARBONATE 500 MG TAB PO (09:35)
[2024-04-09] MEDS: MULTIVITAMIN 1 TABLET 1 TAB PO (09:35)
[2024-04-09] MEDS: cefTRIAXone 1,000 MG in SODIUM CHLORIDE 0.9% 100 ML 200 MG IV (09:35)
[2024-04-09] MEDS: ASPIRIN EC 81 MG TABLET PO (09:35)
--- NOTE | 2024-04-09 10:35 | PT.IIE ---
Surgical History (Last Reviewed 05/11/22 @ 23:21 by Angeles Burris MD) H/O: hysterectomy History of colonoscopy S/P small bowel resection Status post laparoscopic colectomy Tubal ligation status Medical History (Last Reviewed 04/09/24 @ 01:21 by Josué Bliss DO) Breast cancer, left (~2011) CLL (chronic lymphocytic leukemia) Colostomy in place COPD (chronic obstructive pulmonary disease) Depression Erythrocytosis Glaucoma History of UTI Hypertension Impaired vision Lack of appetite Mass of appendix Mild protein-calorie malnutrition Other bursal cyst, unspecified wrist Small bowel obstruction Wears dentures Physical Therapy Inpatient Evaluation/Re-Eval M1 PT/OT-IP Prior Functional Status Start: 04/09/24 08:59 Freq: NEEDED Status: Active Protocol: Document 04/09/24 09:08 MB (Rec: 04/09/24 09:38 MB [id number]) Medical Review Prior Functional Status Medical History Reviewed Yes Communication Unsure baseline diet, communication appears normal and pt with some cognitive challenges. Pt reports a 19 lb weight loss and she states she doesn't have any food at the house. Chart states that MOW meals found on doorstep when community EMS stopped by. Pt with cachetic appearance and unkemp. Mobility and Gait Pt reports her friend gave her a cane but she doesn't use it . She reports one fall two days ago. With PT, pt appears to have some vision challenges when cued to chair and with stepping with walker. Unsure baseline vision. Activities of Daily Living and IADL's Unsure baseline, pt does appear unkemp/need for bath with PT today. Social History Household Members none Living Arrangements House Number of Floors (Floors) One Floor Number of Stairs To Enter/Railing? 3 steps and no rail to enter, pt states she slides her hands along a wall Home Environment Standard Height Toilet,Walk in Shower,Tub/Shower Home Equipment Straight Cane Additional Social History Comment No working M2 PT-IP Current Condition Start: 04/09/24 08:59 Freq: NEEDED Status: Active Protocol: Document 04/09/24 09:08 MB (Rec: 04/09/24 09:38 MB [id number]) Physical Therapy Current Condition Current Condition Evaluation Date 04/09/24 Treatment Diagnosis Confusion, inability to care for self M3 PT-IP Subjective Start: 04/09/24 08:59 Freq: NEEDED Status: Active Protocol: Document 04/09/24 09:08 MB (Rec: 04/09/24 09:38 MB [id number]) Subjective Physical Therapy Visit Type Type Initial Evaluation Visit Start Time 09:08 Visit Stop Time 09:28 Number of TIMBER POISONER Visits 0 Physical Therapy Visit Comments Patient Comments Pt eating some off tray but there is still 50-75% food left on tray. Pt states she wants to take the applesauce home because she doesn't have any food in the house. Therapy Pain Assessment Pain When Pain Assessed At Rest Pain Present Pain Present Denied Pain M4 PT-IP Mobility and Gait Start: 04/09/24 08:59 Freq: NEEDED Status: Active Protocol: Document 04/09/24 09:08 MB (Rec: 04/09/24 09:38 MB [id number]) PT-Bed Mobility Assessment Rolling Type of Rolling Roll to Right Level of Assist Standby Assistance Supine to Sit Supine to Sit Standby Assistance Sit to Supine Sit to Supine Standby Assistance PT-Transfer Assessment Sit to and From Stand Sit to and from Stand Contact Guard Assistance Equipment Transfer Assistive Device Gait Belt,Front Wheeled Walker Orthotic/Prosthetic Devices or Brace: No Transfers Transfer Destination Chair Transfer Technique Ambulation Transfer Ability Level of Assist Minimal Assistance,1 Person Assistance,Use of Upper Extremities Comments Mobility Comments Cues for hand placement. O2 sats in the low 90s and then to mid 90s to 100% after gait on RA and HR 90s-108 BPM. Pt appears mildly CARABALLO with activity. Gait Assessment Gait Gait Assistance Required: Minimum Assistance Distance (Feet) 60 Able to Maintain Weight Bearing Status Yes During Gait Assistive Devices Assistive Device Gait Belt,Front Wheeled Walker Orthotic/Prosthetic Devices or Brace: No Gait Deviations General Gait Pattern Decreased Stride Length, Decreased Feet Clearance, Flexed Trunk,Narrow Based Gait Factors Limiting Gait Function Factors Limiting Gait Function Decreased Activity Tolerance, Difficulty Following Directions,Poor Balance,Poor Safety Awareness Comments Gait Comments Pt with some unsteadiness with gait and poor visual tracking , runs into walker with right foot occ, trouble with turning and scanning PT-Balance Assessment Sitting Balance and Reactions Static Sitting Balance Ability Good Dynamic Sitting Balance Ability Fair Standing Balance and Reactions Static Standing Balance Ability Fair Dynamic Standing Balance Ability Fair Device Used RW M5 PT-IP Objective Assessments Start: 04/09/24 08:59 Freq: NEEDED Status: Active Protocol: Document 04/09/24 09:08 MB (Rec: 04/09/24 10:35 MB [id number]) Orientation Orientation/Cognition Level of Alertness Alert Orientation Name,Age,Birthday,Month,Place Language Function Ability No Deficits Noted Safety Awareness Decreased Safety Awareness Memory Description Short Term Impaired,Sports Internship Impaired Gross Range of Motion Upper Extremity ROM Impairments Defer to OT Lower Extremity ROM Assessment Within Functional Limits Strength Lower Extremity Strength Assessment Within Functional Limits Coordination Assessment Gross Coordination Gross Coordination Impaired Sensation Assessment Comments Sensation Comments Pt denies paresthesias Muscle Tone Muscle Tone WNL Yes M7 PT-IP Assessment and Plan Start: 04/09/24 08:59 Freq: NEEDED Status: Active Protocol: Document 04/09/24 09:08 MB (Rec: 04/09/24 10:35 MB [id number]) PT Summary Assessment and Plan Potential Rehabilitation Potential Fair Status of Condition at Evaluation Evolving Summary Impairments Balance,Coordination,Cognition ,Bed Mobility,Transfers,Gait, Activity Tolerance Progress Towards Goals Slow Progress due to Activity Tolerance Assessment Summary Pt is a 78 y/o female adm with confusion, inability to care for self and found to have PNA . She presents with CARABALLO on RA and sats are in the 90s on RA after gait. Pt presents with cachetic appearance and unkempt body odor. She states that she doesn't have any food at home and that it's good to have the food from the hospital. She has some cognitive challenges and does not answer all questions well or accurately. PT is concerned about her safety if she d/cs home alone. Recommend SNF at d /c and then increased assistance long-term. SNF PT can address transfer, balance and gait impairments and high fall risk. She will benefit from LRAD training. May know more about long-term options when son arrives from [place] tomorrow. Goals Bed Mobility Goal Independent Transfer Goal Independent,Front Wheeled Walker Gait Goal Independent,Front Wheel Walker Gait Distance 100 Other Goals Pt will ascend and descend 3 steps with no more than AOC OPERATIONS INTELLIGENCE CHIEF to allow safe home entrance. Days to Meet Goals 5 Frequency of Treatment Frequency Of Treatment Once a Day Treatment Plan Physical Therapy Treatment Plan Bed Mobility Training,Transfer Training,Gait Training, Therapeutic Exercise,Balance Retraining,Discharge Planning, Hot or Cold Pack,Neuromuscular Re-ed,Coordination Retraining ,Manual Therapy Precautions Other Precautions Fall risk Recommendations To Nursing Amount of Assist Needed 1 Person Assist Discharge Recommendations PT Discharge Recommendations SNF Rehab Transportation Needs at Discharge Private Vehicle,Wheelchair/ Cabulance
--- NOTE | 2024-04-09 11:26 | OT.IP.EVAL ---
Past Medical History (Last Reviewed 04/09/24 @ 01:21 by Josué Bliss DO) Breast cancer, left (~2011) CLL (chronic lymphocytic leukemia) Colostomy in place COPD (chronic obstructive pulmonary disease) Depression Erythrocytosis Glaucoma History of UTI Hypertension Impaired vision Lack of appetite Mass of appendix Mild protein-calorie malnutrition Other bursal cyst, unspecified wrist Small bowel obstruction Wears dentures Surgical History (Last Reviewed 05/11/22 @ 23:21 by Angeles Burris MD) H/O: hysterectomy History of colonoscopy S/P small bowel resection Status post laparoscopic colectomy Tubal ligation status Occupational Therapy Inpatient Evaluation/Re-Eval M1 PT/OT-IP Prior Functional Status Start: 04/09/24 12:07 Freq: NEEDED Status: Active Protocol: Document 04/09/24 12:07 [facility] (Rec: 04/09/24 12: [facility] [id number]) Medical Review Prior Functional Status Medical History Reviewed Yes Communication Unsure baseline diet, communication appears normal and pt with some cognitive challenges. Pt reports a 19 lb weight loss and she states she doesn't have any food at the house. Chart states that MOW meals found on doorstep when community EMS stopped by. Pt with cachetic appearance and unkemp. Mobility and Gait Pt reports her friend gave her a cane but she doesn't use it . She reports one fall two days ago. With PT, pt appears to have some vision challenges when cued to chair and with stepping with walker. Unsure baseline vision. Activities of Daily Living and IADL's Unsure baseline, pt does appear unkemp/need for bath with PT today. Social History Household Members none Living Arrangements House Number of Floors (Floors) One Floor Number of Stairs To Enter/Railing? 3 steps and no rail to enter, pt states she slides her hands along a wall Home Environment Standard Height Toilet,Walk in Shower,Tub/Shower Home Equipment Straight Cane Additional Social History Comment No working M2 OT-IP Current Condition Start: 04/09/24 12:07 Freq: Status: Active Protocol: Document 04/09/24 12:07 [facility] (Rec: 04/09/24 12:24 [facility] [id number]) Occupational Therapy Current Condition Current Condition Evaluation Date 04/09/24 Treatment Diagnosis PNA, acute encephalopathy Diagnosis Onset Date 04/08/24 M3 OT- IP Subjective and Pain Start: 04/09/24 12:07 Freq: Status: Active Protocol: Document 04/09/24 12:07 [facility] (Rec: 04/09/24 12:24 [facility] [id number]) OT- Subjective Occupational Therapy Visit Type Type Initial Evaluation Visit Start Time 10:45 Visit Stop Time 11:26 Occupational Therapy Visit Comments Patient Comments Pt agreed to get up and wanting to use the bathroom. Patient/Caregiver Goals TO go home. OT Pain Assessment Pain When Pain Assessed At Rest Pain Present Pain Present Denied Pain M4 OT- IP ADL's Start: 04/09/24 12:07 Freq: Status: Active Protocol: Document 04/09/24 12:07 [facility] (Rec: 04/09/24 12:24 [facility] [id number]) OT [id number] Comments OT Self-Feeding Comments Not at meal time.Noted pt coughing after drinking liquids, notified nursign and suggested pt get a R PROGRAMMER eval. OT ADL-Grooming General Evaluation Grooming Ability Standby Assistance Areas Needing Assistance Retrieving/Set-up of Grooming Items Comments OT Grooming Comments Set-up and able to do while standing with the FWW. OT ADL-Oral Care General Eval Oral Care Ability Independent OT ADL-Dressing General Eval Lower Body Dressing Ability Moderate Assistance,Maximum Assistance Areas Needing Assistance Underpants/Brief,Socks OT ADL-Toileting General Evaluation Toileting Ability Moderate Assistance Areas Needing Assistance Manage Clothing,Perform Perineal Hygiene Comments OT Toileting Comments Assist for completeness of hygiene and for clothing management needs. OT ADL-Bathing Comments OT Bathing Comments Pt will benefit from assist. M5 OT- IP IADL's Start: 04/09/24 12:07 Freq: Status: Active Protocol: Document 04/09/24 12:07 [facility] (Rec: 04/09/24 12:24 [facility] [id number]) OT-Instrumental Activities of Daily Living Deficits IADL Deficits Identified Deficits Home Safety Awareness Awareness of Need for Assistance at Home Decreased Awareness Home Safety Comments Pt initially insists that she is doing well cognitively and then started SLUMS and pt realizing that she is not thinking well. Money Management Money Management Caregiver Provides Assistance Meal Preparation Meal Preparation Comments Pt states has no money and just initiated Meals on Wheels . M6 OT- IP Functional Cognition Start: 04/09/24 12:07 Freq: Status: Active Protocol: Document 04/09/24 12:07 [facility] (Rec: 04/09/24 12:24 [facility] [id number]) Cognitive Factors Limiting Selfcare Function Cognitive Ability Level of Alertness Alert,Confusional State Patient Orientation Name,Age,Birthday,Year,Place Attention Span Ability Capable of Focused Attention, Capable of Sustained Attention Ability to Follow Commands Able to Follow One Step Commands with Increased Time, Able to Follow One Step Commands with Repetition Memory Description Short Term Impaired,Working Impaired Problem Solving Ability Needs Assist to Identify Solutions Cognitive Tests SLUMS Initiated SLUMS and pt having difficulty and realizing that she is having trouble thinking and not wanting to complete the assessment. Cognitive Comments Cognitive Assessment Comments VC for completeness for toileting, vc to find the sink located on the right. VC for safety with FWW and hand placement to assist to push up form surfaces when coming to stand. OT- Vision and Hearing OT- Vision Assessment Visual Acuity Glasses All The Time Visual Attentiveness WFL Occular Pursuits WFL Visual Convergence WFL Visual Kirby WFL M7 OT- IP Mobility and Balance Start: 04/09/24 12:07 Freq: Status: Active Protocol: Document 04/09/24 12:07 [facility] (Rec: 04/09/24 12:24 [facility] [id number]) OT-Transfer Assessment Sit to and From Stand Sit to and from Stand Moderate Assistance Transfers Transfer Ability Contact Guard Assistance, Minimal Assistance Technique Transfer Destination Chair,Toilet Transfer Technique Stand Step Pivot Devices Transfer Assistive Devices Gait Belt,Front Wheeled Walker Comments Mobility Comments MODA to stand from the recliner and toilet. CHRISTOPHE with FWW for balance and assist to guide the FWW and keep in front of her especially as she tires. OT- Balance Assessment Sitting Balance and Reactions Static Sitting Balance Ability Good Dynamic Sitting Balance Ability Fair Standing Balance and Reactions Static Standing Balance Ability Fair Dynamic Standing Balance Ability Fair M8 OT- IP Objective Assessments Start: 04/09/24 12:07 Freq: Status: Active Protocol: Document 04/09/24 12:07 [facility] (Rec: 04/09/24 12:24 [facility] [id number]) OT Gross Range of Motion Upper Extremity Range of Motion Assessment Within Functional Limits OT Strength Upper Extremity Strength Assessment Within Functional Limits Hand Development Specialist Strength Hand Dominance Right OT- Coordination Assessment Upper Extremity Finger to Nose Test Within Functional Limits OT Sensation Assessment Comments Summary Comments Intact for light touch. M9 OT- IP Assessment and Plan Start: 04/09/24 12:07 Freq: Status: Active Protocol: Document 04/09/24 12:07 [facility] (Rec: 04/09/24 12:24 [facility] [id number]) OT Summary Assessment and Plan Potential Rehabilitation Potential Good Analytic Complexity at Evaluation Moderate Summary OT Impairments Balance,Functional Cognition, Functional Mobility,Grooming, Dressing,Toileting,Bathing, Toilet Transfers,Shower Transfers,Activity Tolerance Progress Towards Goals Slow Progress due to Pain,Slow Progress due to Medical Issues,Slow Progress due to Activity Tolerance,Slow Progress due to Cognition Assessment Summary Pt mod complexity and main barriers are steps, confusion , needing assist for mobility and ADL needs. Pt would benefit from skilled rehab to maximize level of function and then benefit from 14/01 available assist or assisted living- continues to assess her mentation. Goals Self-Feeding Goal Independent Grooming Goal Independent Dressing Goal Independent Toileting Goal Independent Bathing Goal Standby Assistance Toilet Transfer Goal Independent Shower Transfer Goal Standby Assistance Days to Meet Goals 20 Frequency of Treatment Other frequency 5x/week Treatment Plan OT Treatment Plan ADL Training,Functional Cognition Training,Functional Mobility,Patient/Family Education,Discharge Planning Discharge Recommendations OT Discharge Recommendations SNF Rehab Transportation Needs at Discharge Private Vehicle,Wheelchair/ Cabulance
--- NOTE | 2024-04-09 13:31 | CM.DPC ---
DCP Cont. Reviewed EMR and team rounds for status updates. Pt is more alert and oriented than she was at the time of admit. She understands that her son will be arriving in town soon, but wasn't sure when. This ACCOUNT SPECIALIST left a message for son in order to start the process of hiring in-home caregivers following her SNF rehab stay. Requested return call TERESA.
--- NOTE | 2024-04-09 14:02 | PM.PN.1 ---
Subjective Subjective Date Patient Seen: 04/09/24 Time Patient Seen: 09:45 Interval history: 78 year-old female with past medical history of CLL being followed by hematology at [facility], COPD non o2 dependent, depression, hypertension, and small bowel obstruction presents with generalized weakness, confusion and unable to care for self at home. Per report, the patient was found by EMS to be confused and naked down from the waist. Per report, the patient has not picked up the food (Meals on wheels) for a few weeks. Of note during the time my interview, the patient was still confused and unable to give any history. Per ER physician the patient was confused in the ER as well and unable to give any history. CT head was negative. WBC was 280s which is increased from last year in the 80s. Lactate 3.2. There was signs of dehydration sodium 154 and BUN 53. UA pending. Phosphorus 4.6 and magnesium 2.6. In our ER, the patient was given IV fluid as well as empiric IV ceftriaxone. Hematology oncology from [facility] was called and recommended that we admit the patient here for management and treatment of possible infection. In regards to severe Leukocytosis there?s no urgent intervention needed at this point per their recommendation but will need to follow up with hematology oncology post discharge for further treatment. Note CXR came back positive for pneumonia. Azithromycin was added. CT head negative. Interval history: The patient was administered antibiotics and fluids over night and feels significantly improved. She is alert and appropriate. She was able to get up and walk in the room with physical therapy. She was evaluated by speech therapy with a normal swallowing evaluation. She is alert, appropriate, pleasant and appears to understand her situation. Cognitive evaluation was notable for significant impairment with the a slums score 14/30, stating the year was in the 1970s, with severely impaired short-term recall and visuospatial testing. She lives alone locally. Her son Michele is flying in from [place] tomorrow and is concerned about her independent home living situation. She states she has lost 17 lb in the past year per Exam Vital Signs (past 8 hours): - 04/09/24 07:00 Temperature 97.8 F Pulse Rate 78 Respiratory Rate 16 Blood Pressure 113/90 Pulse Oximetry 95 Oxygen Delivery Method Room Air Oxygen Flow Rate 0 Narrative Exam Narrative: GENERAL: This is a frail, cachectic female patient, in no apparent distress. HEAD: Atraumatic. Normocephalic. No temporal or scalp tenderness. EYES: Pupils equal round and reactive. Extraocular motions intact. No scleral icterus. No injection or drainage. ENT: Mucous membranes pink and moist. NECK: Trachea midline. No JVD, bruits or lymphadenopathy. Supple, nontender, no meningeal signs. CARDIOVASCULAR: Regular rate and rhythm without murmurs, gallops, or rubs. RESPIRATORY: Clear to auscultation. GASTROINTESTINAL: Abdomen soft, non-tender, nondistended. EXTREMITIES: No clubbing, cyanosis, or edema. BACK: Nontender without deformity or crepitance. No flank tenderness. NEUROLOGIC: Alert, oriented to person and place, speech fluent, full upper and lower motor strength, no focal deficits evident. DERMATOLOGIC: No rashes or skin lesions. Objective Imaging CT scan - head: Radiologist's impression: No acute intracranial pathology. Chest x-ray: Radiologist's impression: Likely multifocal pneumonia involving the left upper and lower lobes with a small left pleural effusion. Labs 04/09/24 06:00 04/09/24 06:00 Labs: Laboratory Results - last 24 hr 04/08/24 04/08/24 04/08/24 17:27 19:41 20:48 WBC 280.7 H* RBC 5.74 H Hgb 16.2 H Hct 51.9 H MCV 90.5 MCH 28.2 MCHC 31.2 RDW 14.7 Plt Count 209 Neut % (Auto) Not Reportable Lymph % (Auto) Not Reportable [place] % (Auto) Not Reportable Eos % (Auto) Not Reportable Baso % (Auto) Not Reportable Lymph # (Auto) Not Reportable [place] # (Auto) Not Reportable Baso # (Auto) Not Reportable Total Counted 100 Seg Neutrophils % 4.0 L Lymphocytes % (Manual) 96.0 H Neutrophils # (Manual) 54771 H Smudge Cells 2+ H RBC Morphology Normal morphology Sodium 154 H Potassium 4.5 Chloride 114 H Carbon Dioxide 26 BUN 53 H Creatinine 0.91 Estimated GFR > 60 BUN/Creatinine Ratio 58.2 H Glucose 107 Lactate 3.2 H 2.1 Calcium 10.0 Phosphorus 4.6 H Magnesium 2.6 H Total Bilirubin 1.1 AST 61 H ALT 41 H Alkaline Phosphatase 140 H Total Creatine Kinase 62 Total Protein 8.3 H Albumin 4.5 Globulin 3.8 Albumin/Globulin Ratio 1.2 Lipase 29 TSH 2.89 Salicylates < 1.0 U Opiates 300ng/mL cut Negative Ur Oxycodone Screen Negative Urine Methadone Screen Negative Acetaminophen < 10 Ur Barbiturates Screen Negative U Tricyclic Antidepress Negative Ur Phencyclidine Scrn Negative Ur Amphetamines Screen Negative U Methamphetamines Scrn Negative Ur MDMA Scrn (Ecstasy) Negative U Benzodiazepines Scrn Negative Urine Cocaine Screen Negative U Marijuana (THC) Screen Negative Urine pH Normal Urine Specific [place] Normal Ethyl Alcohol < 10 Ur Creatinine Normal 04/09/24 06:00 WBC 221.0 H* RBC 5.21 H Hgb 15.0 Hct 46.7 H MCV 89.6 MCH 28.7 MCHC 32.1 RDW 14.6 Plt Count 159 Neut % (Auto) Not Reportable Lymph % (Auto) Not Reportable [place] % (Auto) Not Reportable Eos % (Auto) Not Reportable Baso % (Auto) Not Reportable Lymph # (Auto) Not Reportable [place] # (Auto) Not Reportable Baso # (Auto) Not Reportable Total Counted 100 Seg Neutrophils % 6.0 L Lymphocytes % (Manual) 94.0 H Neutrophils # (Manual) 80778 H Smudge Cells 2+ H RBC Morphology Normal morphology Sodium 150 H Potassium 5.0 Chloride 117 H Carbon Dioxide 23 BUN 46 H Creatinine 0.77 Estimated GFR > 60 BUN/Creatinine Ratio 59.7 H Glucose 72 L Lactate Calcium 8.9 Phosphorus Magnesium Total Bilirubin 0.8 AST 40 H ALT 20 Alkaline Phosphatase 120 Total Creatine Kinase Total Protein 7.3 Albumin 3.9 Globulin 3.4 Albumin/Globulin Ratio 1.1 Lipase TSH Salicylates U Opiates 300ng/mL cut Ur Oxycodone Screen Urine Methadone Screen Acetaminophen Ur Barbiturates Screen U Tricyclic Antidepress Ur Phencyclidine Scrn Ur Amphetamines Screen U Methamphetamines Scrn Ur MDMA Scrn (Ecstasy) U Benzodiazepines Scrn Urine Cocaine Screen U Marijuana (THC) Screen Urine pH Urine Specific [place] Ethyl Alcohol Ur Creatinine [facility] Medical History Breast cancer, left (~2011) Small bowel obstruction COPD (chronic obstructive pulmonary disease) Lack of appetite Wears dentures Impaired vision Depression History of UTI Colostomy in place Mild protein-calorie malnutrition Hypertension Mass of appendix CLL (chronic lymphocytic leukemia) Erythrocytosis Other bursal cyst, unspecified wrist Glaucoma Surgical History H/O: hysterectomy History of colonoscopy S/P small bowel resection Status post laparoscopic colectomy Tubal ligation status Family History Mother No known health problems Father No known health problems Social History household members: none Smoking Status: Current every day smoker alcohol intake: never substance use type: does not use Assessment & Plan Assessment & Plan narrative: 1. Community-acquired pneumonia. Continue IV ceftriaxone and azithromycin. 2. Sepsis due to 1 with severe acute on chronic lymphocytic leukemia leukocytosis and elevated serum lactate. 3. Acute metabolic encephalopathy, possibly due to underlying infection, consider underlying dementia. Head CT was unremarkable and TSH normal. Check B12. Reassess tomorrow. 4. Hypernatremia due to dehydration. Improving. Continue IV fluids. 5. Hypertension. Consider restarting irbesartan and hydrochlorothiazide when dehydration resolved and blood pressures are eyes 6. Generalized weakness. 7. Severe protein calorie malnutrition. Consult dietary. 8. Chronic lymphocytic leukemia. Continue to monitor severe leukocytosis, with a baseline white blood count in the 80s. 9. DVT prophylaxis: Subcutaneous heparin 10. Code status: Full code. This is reviewed and affirmed with the patient on admission. 11. Disposition. Consider home with home health versus [facility] facility placement. Her son will be coming in in the next 1-2 days to discuss care. Plan: -IV ceftriaxone and azithromycin -follow cultures -IV hydration -monitor mental status -check B12 level -monitor serum sodium -monitor blood pressures Quality MIPS - Admit I confirm the patient?s Advance Care Plan is present, Code status is documented, Surrogate decision maker is in patient?s record [If Yes, STOP here]: Yes MIPS - Meds 'Current medications' to include all prescriptions, [id number] products, herbals, cannabis/cannabidiol products, and vitamin/mineral/dietary (nutritional) supplements. I have utilized all available resources to obtain, update, or review the patient?s current medications. [If Yes, STOP here]: Yes PROFEE Charge codes Subsequent inpatient/observation care: 46837
--- NOTE | 2024-04-09 14:03 | ST.IPIE ---
Visit Care Team Role Provider Type Sayra Russo MD Primary Care Provider Physician Specialty: Internal Medicine Address: [place] [address] Email: Josué Bliss DO Emergency Provider Physician Referring Provider Specialty: Emergency Medicine Address: [address] [place] [address], [address] Email: [email or web address] MD Admit Provider Physician Attending Provider Specialty: Internal Medicine Address: [address] [place] [address], [address] Fax: Email: [email or web address] Diagnoses Sepsis, unspecified organism (04/08/24) Past Medical History (Last Reviewed 04/09/24 @ 01:21 by Josué Bliss DO) Breast cancer, left (Medical ~2011) Patient denies, states that she had an abscess 30 years ago CLL (chronic lymphocytic leukemia) (Medical) Stage [address] (Medical) COPD (chronic obstructive pulmonary disease) (Medical) Depression (Medical) Mild (per patient) Erythrocytosis (Medical) h/o polycythemia vs myeloproliferative disorder; carries higher risk of thrombosis Glaucoma (Medical) History of UTI (Medical) Hypertension (Medical) Impaired vision (Medical) Lack of appetite (Medical) Progressive weight loss Mass of appendix (Medical) Mild protein-calorie malnutrition (Medical) Other bursal cyst, unspecified wrist (Medical) Excised 2011 Small bowel obstruction (Medical) Post-operative; conservative management Wears dentures (Medical) ST IP Initial Evaluation Report [employer]FIG[employer]ING [employer]QUIPMENT SPECIALIST Adult Cognitive Linguistic Eval Start: 04/09/24 13:33 Freq: Status: Active Protocol: Document 04/09/24 13:34 SS (Rec: 04/09/24 14:02 SS [id number]) Adult Cognitive Linguistic Evaluation Session Time Visit Start Time 12:55 Visit Stop Time 13:10 Total Visit Minutes 15 Visit Information Visit Number Initial Evaluation Referral Referring Provider Josué Bliss Reason for Referral Cognitive-communication concerns Setting Assessment Location Acute Care Visit Type Note Type Initial evaluation Patient Information Identification Type Name,Wristband Patient History Pt is a 78-year-old woman who was admitted with possible sepsis with pneumonia, acute encephalopathy, generalized weakness, and failure to thrive. PMHx includes COPD, breast cancer, chronic lymphocytic leukemia, hypertension, amd malnutrition . She was referred for [employer]FIG[employer]ING EQUIPMENT SPECIALIST assessment of swallowing and cognitive-communication function. Per H&P on 04/09/24, patient was found by EMS to be confused and naked down from the waist. Per report, the patient has not picked up the food (Meals on wheels) for a few weeks. Of note during the time my interview, the patient was still confused and unable to give any history. Per ER physician the patient was confused in the ER as well and unable to give any history. CT head was negative. WBC was 280s which is increased from last year in the 80s. Lactate 3.2. There was signs of dehydration sodium 154 and BUN 53. UA pending. Phosphorus 4.6 and magnesium 2.6. In our ER, the patient was given IV fluid as well as empiric IV ceftriaxone . Hematology oncology from [facility] was called and recommended that we admit the patient here for management and treatment of possible infection. In regards to severe Leukocytosis there?s no urgent intervention needed at this point per their recommendation but will need to follow up with hematology oncology post discharge for further treatment. Note CXR came back positive for pneumonia. Azithromycin was added. CT head negative. Pt reports she lives by herself. She reports difficulty with driving, though denies difficulty with household/ financial/medication management. She reports increased confusion and difficulty with thinking over the past week. She denied swallowing difficulty or overt s/sx of aspiration with PO intake. Education Level Master's degree Occupation Status Retired Hearing Hearing Level Normal Vision Vision Status Impaired Comments Glaucoma Previous Therapy Previous Speech-Language Therapy No Subjective Patient Report Pt was sitting upright in armchair upon FIREFIGHTING EQUIPMENT SPECIALIST arrival. She answered case history questions without difficulty, though was unable to recall some details. She was oriented to self, place, and purpose, though not to date, stating it is currently 1972. Mental Status Alert,Responsive,Cooperative, Confused Assessment Oral Motor Examination Completed Yes Results OME WNL. Informal Assessment Receptive Language Normal Yes Expressive Language Normal Yes Pragmatic Language Normal Yes Speech Normal Yes Cognition Normal No Cognitive Impairment(s) Orientation,Attention,Short- term memory,Executive functioning,Problem solving, Reasoning,Thought organization ,Safety awareness Formal Assessment Standardized Test/Screener Type [facility] Mental Status ([facility]) Administration Complete Results The [facility] Mental Status (UMS) Examination was used to obtain information regarding the patient?s cognitive abilities. The SLUMS consists of ten questions that assess delayed recall, verbal fluency, comprehension, calculations, attention, working memory, and orientation. A scored is calculated from a possible 30 points. Scores fall in one of three ranges describing a patient?s level of impairment based upon level of education. Patients who have completed high school are expected to score slightly higher on this test than those who have not. For someone with a high school education, WNL is 27-30. The SLUMS was completed on this date. Subtest scores are as follows: Orientation: 1/3 Immediate Recall: 4/5 (not calculated in total score) Numeric Calculation: 1/3 Divergent Namin/3 (total of 6) Delayed Recall: 1/5 Attention/Registration with Digit Span: 0/2 Clock Drawing (Visuospatial & Executive Functioning): 0/4 Geometric Figures: 2/2 Short Story (memory/recall): 8 /8 Total Score: 1430 Findings/Results Language Function Within functional limits Cognitive Function Moderately-severely impaired Findings Pt demonstrated moderate- severe cognitive-communication impairment in the areas of orientation, attention, short- term memory, problem solving, and executive functioning. Pt is at an elevated risk of making critical errors with tasks such as medication management, time/schedule management, financial analyst accountant, and completion of residential concierge, as well as everyday tasks that require adequate skills in the areas of attention and immediate/ delayed memory. Skilled ST services with the goal of providing therapeutic education and training in the use of cognitive-communication compensatory strategies targeting attention and immediate and delayed memory for improved safety and independence at the next level of care are recommended. Recommend supervision with all ADLs and IADLs at next level of care given current cognitive-communication function. Prognosis Prognosis Fair Based on Cognitive status,Comorbidities ,Duration of symptoms/severity ,Time since onset Plan of Care Speech-Language Treatment Yes Frequency 5x/week Patient/Caregiver Education Patient expressed understanding of evaluation, Patient expressed agreement with goals and treatment plans Short Term Goals 1. Patient will utilize compensatory memory aids with 90% accuracy given moderate v/ v cues to increase orientation and functional recall/ participation within current setting. 2. Patient will selectively attend to tasks for 5-10 minutes in order to enhance patient?s ability to allow for increased socialization and ability to communicate basic wants/needs. Library Technical Assistant Goals Patient will exhibit adequate cognitive-communication skills for discharge to next level of care with stand-by daily supervision using compensatory strategies as trained to facilitate safety and independence. Discharge Recommendations [facility] facility, Inpatient rehab facility [employer]IPMENT [employer]IST Clinical Swallow Evaluation Start: 04/09/24 13:33 Freq: Status: Active Protocol: Document 04/09/24 13:34 SS (Rec: 04/09/24 14:02 SS [id number]) Clinical Swallow Evaluation Session Time Visit Start Time 13:10 Visit Stop Time 13:30 Total Visit Minutes 20 Visit Information Visit Number Initial Evaluation Referral Referring Provider Josué Bliss Reason for Referral Swallowing concerns Setting Assessment Location Acute Care Visit Type Note Type Initial evaluation Patient Information Identification Type Name,Wristband History Pt is a 78-year-old woman who was admitted with possible sepsis with pneumonia, acute encephalopathy, generalized weakness, and failure to thrive. PMHx includes COPD, breast cancer, chronic lymphocytic leukemia, hypertension, amd malnutrition . She was referred for [employer] EQUIPMENT SPECIALIST assessment of swallowing and cognitive-communication function. Per H&P on 04/09/24, patient was found by EMS to be confused and naked down from the waist. Per report, the patient has not picked up the food (Meals on wheels) for a few weeks. Of note during the time my interview, the patient was still confused and unable to give any history. Per ER physician the patient was confused in the ER as well and unable to give any history. CT head was negative. WBC was 280s which is increased from last year in the 80s. Lactate 3.2. There was signs of dehydration sodium 154 and BUN 53. UA pending. Phosphorus 4.6 and magnesium 2.6. In our ER, the patient was given IV fluid as well as empiric IV ceftriaxone . Hematology oncology from [facility] was called and recommended that we admit the patient here for management and treatment of possible infection. In regards to severe Leukocytosis there?s no urgent intervention needed at this point per their recommendation but will need to follow up with hematology oncology post discharge for further treatment. Note CXR came back positive for pneumonia. Azithromycin was added. CT head negative. Pt reports she lives by herself. She reports difficulty with driving, though denies difficulty with household/ financial/medication management. She reports increased confusion and difficulty with thinking over the past week. She denied swallowing difficulty or overt s/sx of aspiration with PO intake. Subjective Observations Pt sitting upright in armchair upon FIREFIGHTING EQUIPMENT SPECIALIST arrival. She reports poor appetite for a long time. Per OT report, pt demonstrated coughing with thin liquids earlier in the day. Reported by Patient/Caregiver Pain/Discomfort No Other Symptoms Coughing,History of aspiration or pneumonia,Weight loss Current Diet Regular (IDDSI 7) Baseline Feeding Method Independent in self-feeding The IDDSI Framework Protocol: IDDSI.1 Objective Assessment Mental Status Alert,Responsive,Cooperative, Confused Oral Integrity WFL Dentition Within normal limits Lip Function Within normal limits Observation of Lips at Rest Symmetrical Pucker Within normal limits Lip Retraction Within normal limits Alternating Pucker/Lip Retraction Within normal limits Tongue Function Within normal limits Observations of Tongue at Rest Within normal limits Tongue Protrusion Within normal limits Tongue Retraction Within normal limits Tongue Lateralization Within normal limits Jaw Function Within normal limits Observation of Jaw at Rest Within normal limits Jaw Opening Within normal limits Jaw Closing Within normal limits Jaw Lateralization Within normal limits Jaw Protrusion Within normal limits Jaw Retraction Within normal limits Hard/Soft Palate Function Within normal limits Observations of Hard/Soft Palate Within normal limits Food and Liquid Trials Position During Assessment Upright (90 degrees) Liquids Trialed Thin (IDDSI 0) Solid Trials Purred (IDDSI 4),Soft & Bite- sized (IDDSI 6),Regular (IDDSI 7) Administration Type Cup single sip,Cup consecutive sips,Straw,Self-feeding Oral Impairment Within functional limits Oral Phase Comments Functional mastication with timely oral transit and complete oral clearance. Pharyngeal Impairment Within functional limits Pharyngeal Phase Comments Pharyngeal swallow appears prompt. No overt s/sx of aspiration with provided consistencies. Pt completed consecutive sips of thin liquids via cup and straw without any concerns. Fatigue/Endurance Endurance WNL The IDDSI Framework Protocol: IDDSI.1 Findings Swallowing Function Within normal limits Severity of Swallow Impairment Within normal limits Prognosis Good Comment Pt presents with oropharyngeal swallow function within normal limits. Aspiration risk appears low. Recommend regular texture diet, thin liquids, and meds whole with liquid wash as tolerated. No further FIREFIGHTING EQUIPMENT SPECIALIST services indicated for dysphagia. Please re- consult if new concerns. Impact on Safety and Functioning No limitations Recommendations Instrumental Assessment No Swallowing Treatment No Recommended Solids Regular (IDDSI 7) Recommended Liquids Thin (IDDSI 0) Medication Recommendations As Tolerated,Whole Discharge Recommendations [facility] facility, Inpatient rehab facility Referrals Recommended Referrals Dietary Education Patient/Caregiver Education Patient expressed understanding of evaluation, Patient expressed agreement with goals & treatment plans
--- NOTE | 2024-04-09 15:43 | DIET.CONS ---
Dietary Consultation Note Admission Date: 04/08/2024 20:45 Assessment: 78 y F admitted for pneumonia and sepsis. PMH of CLL. RD consulted for malnutrition. Met with pt at bedside this morning. Confirms information PT/OT have noted of pt not having any food in the house and 19 lb weight loss. Reports she always has had minimal food intakes d/t not cooking and poor appetite, but that she has been eating even less in the past month d/t no food in house. MOW comes 4-5 days, has not eaten these meals recently. Her doctor has previously recommended Boost to her. Unable to confirm if she has had that in the past. Pt unable to provide diet recall over last few weeks. Received lunch tray near end of assessment and began eating it. Per PT note, had about 25% of breakfast. NFPE- -Severe muscle mass loss- temples, deltoid, trapezius, pectoralis, interosseous -Severe subcutaneous fat loss- buccal and orbital fat pads Noted MANAGER ANIMATION note reported SLUMS of . Ht: 165.1 cm Wt: 34.927 kg BMI: 12.8 (underweight) UBW: 48.988 kg on 01/09/23 (-29% weight loss in >1yr) Last BM: 04/09/24 (04/09/24 05:58) MNA: 3 Elliott Score: 18 Diet: 04/08/24 Breakfast Heart Healthy Diet Diet Modifications: Labs: RBC 5.21 X10^6/uL (4.0-5.2) H 04/09/24 06:00 Hgb 15.0 g/dL (12.0-16.0) 04/09/24 06:00 Hct 46.7 % (36-46) H 04/09/24 06:00 Creatinine 0.77 mg/dL (0.52-1.04) 04/09/24 06:00 Lactate 2.1 mmol/L (0.7-2.1) 04/08/24 19:41 Nutrition Diagnosis: Severe protein calorie malnutrition r/t difficulty caring for self aeb severe muscle mass loss (temporalis, deltoid, interossoeus), severe subcutaneous fat loss (buccal and orbital fat pads), BMI 12.8 (underweight) Interventions: 1. Monitoring for gradual increase in energy-protein intake and recc monitoring of electrolytes for first 3 days for high risk refeeding syndrome 2. ONS Enlive/plus trial EER: 5671-4852 kcals/kg (35-40 kcals/kg per BMI) 50-55 g protein (1.5 g/kg per PCM) Monitoring/Evaluations: f/u tomorrow to monitor po intakes and ons tolerance Electronically Signed by: Jillian Helms 04/09/24 15:43 Clinical Dietitian [address] [address]
[2024-04-09 16:00] VITALS: BP 131/98; PULSE 104; RESP 16; TEMP 36.1; O2SAT 96
[2024-04-09] MEDS: SODIUM CHLORIDE 0.9% 1,000 ML 84 ML IV (16:49)
[2024-04-09 20:24] VITALS: BP 144/86; PULSE 84; RESP 18; TEMP 37; O2SAT 96
[2024-04-09] MEDS: AZITHROMYCIN 500 MG in DEXTROSE 5% IN WATER 250 ML 250 MG IV (21:15)
[2024-04-10] MEDS: SODIUM CHLORIDE 0.9% 1,000 ML 84 ML IV ×2 (05:36→17:33)
[2024-04-10 06:39] LABS: BUN Creatinine Ratio 46.3 (6-22); Blood Urea Nitrogen 31 mg/dL (7-17); Calcium 8.4 mg/dL (8.4-10.2); Carbon Dioxide 24 mmol/L (22-32); Chloride 117 mmol/L (98-107); Estimated Glomerular Filt Rate > 60 mL/min (>60); Glucose 80 mg/dL (80-110); HEMOLYSIS 18 (0-50); Potassium 3.4 mmol/L (3.4-5.1); Sodium 145 mmol/L (137-145)
[2024-04-10 06:46] LABS: Hematocrit 41.3 % (36-46); Hemoglobin 13.1 g/dL (12.0-16.0); Mean Corpuscular HGB Conc 31.8 % (30-36); Mean Corpuscular Hemoglobin 28.4 PG (26-34); Mean Corpuscular Volume 89.2 fL (80-100); Platelet Count 126 X10^3/uL (150-400); Red Blood Cell Count 4.62 X10^6/uL (4.0-5.2); Red Cell Distribution Width 14.5 % (11.6-14.8)
[2024-04-10 06:47] LABS: White Blood Cell Count 160.7 X10^3/uL (4.5-11.0)
[2024-04-10 06:48] LABS: Add Manual Diff / Slide Review YES
--- NOTE | 2024-04-10 07:35 | P.PN_ITS ---
Subjective Subjective Date Patient Seen: 04/10/24 Time Patient Seen: 09:45 Interval history: 78 year-old female with past medical history of CLL being followed by hematology at [facility], COPD non o2 dependent, depression, hypertension, and small bowel obstruction presents with generalized weakness, confusion and unable to care for self at home. Per report, the patient was found by EMS to be confused and naked down from the waist. Per report, the patient has not picked up the food (Meals on wheels) for a few weeks. Of note during the time my interview, the patient was still confused and unable to give any history. Per ER physician the patient was confused in the ER as well and unable to give any history. CT head was negative. WBC was 280s which is increased from last year in the 80s. Lactate 3.2. There was signs of dehydration sodium 154 and BUN 53. UA pending. Phosphorus 4.6 and magnesium 2.6. In our ER, the patient was given IV fluid as well as empiric IV ceftriaxone. Hematology oncology from [facility] was called and recommended that we admit the patient here for management and treatment of possible infection. In regards to severe Leukocytosis there?s no urgent intervention needed at this point per their recommendation but will need to follow up with hematology oncology post discharge for further treatment. Note CXR came back positive for pneumonia. Azithromycin was added. CT head negative. Interval history: The patient reports feeling better. She scored 14/30 on the [facility] SLUMS exam yesterday but is aware of the year, location and recent events today. She states she is feeling much better. She has gotten up and walked with physical therapy. Exam Vital Signs (past 8 hours): Oxygen Delivery Method Room Air Oxygen Flow Rate 0 Narrative Exam Narrative: GENERAL: This is a frail, cachectic female patient, in no apparent distress. EYES: Pupils equal round and reactive. Extraocular motions intact. No scleral icterus. No injection or drainage. ENT: Mucous membranes pink and moist. NECK: Supple, nontender, no meningeal signs. CARDIOVASCULAR: Regular rate and rhythm without murmurs, gallops, or rubs. RESPIRATORY: Clear to auscultation. GASTROINTESTINAL: Abdomen soft, non-tender, nondistended. EXTREMITIES: No clubbing, cyanosis, or edema. NEUROLOGIC: Alert, oriented to person and place, speech fluent, full upper and lower motor strength, no focal deficits evident. DERMATOLOGIC: No rashes or skin lesions. Objective Labs 04/10/24 05:52 04/10/24 05:52 Labs: Laboratory Results - last 24 hr 04/10/24 05:52 WBC 160.7 H* RBC 4.62 Hgb 13.1 Hct 41.3 MCV 89.2 MCH 28.4 MCHC 31.8 RDW 14.5 Plt Count 126 L Neut % (Auto) Not Reportable Lymph % (Auto) Not Reportable [place] % (Auto) Not Reportable Eos % (Auto) Not Reportable Baso % (Auto) Not Reportable Lymph # (Auto) Not Reportable [place] # (Auto) Not Reportable Baso # (Auto) Not Reportable Sodium 145 Potassium 3.4 D Chloride 117 H Carbon Dioxide 24 BUN 31 H Creatinine 0.67 Estimated GFR > 60 BUN/Creatinine Ratio 46.3 H Glucose 80 Calcium 8.4 PFSH Medical History Breast cancer, left (~2011) Small bowel obstruction COPD (chronic obstructive pulmonary disease) Lack of appetite Wears dentures Impaired vision Depression History of UTI Colostomy in place Mild protein-calorie malnutrition Hypertension Mass of appendix CLL (chronic lymphocytic leukemia) Erythrocytosis Other bursal cyst, unspecified wrist Glaucoma Surgical History S/P small bowel resection History of colonoscopy Status post laparoscopic colectomy H/O: hysterectomy Tubal ligation status Family History Mother No known health problems Father No known health problems Social History household members: none Smoking Status: Current every day smoker alcohol intake: never substance use type: does not use Assessment & Plan Assessment & Plan narrative: 1. Community-acquired pneumonia. Continue IV ceftriaxone and azithromycin. Transition to oral antibiotics at discharge. 2. Sepsis due to 1 with severe acute on chronic lymphocytic leukemia leukocytosis and elevated serum lactate. Clinically resolved. 3. Acute metabolic encephalopathy, possibly due to underlying infection, consider underlying dementia. Head CT was unremarkable and TSH and B12 normal. Appears to be much more clear today. 4. Hypernatremia due to dehydration. Improving. Discontinue IV fluids. 5. Hypertension. Restartirbesartan and hydrochlorothiazide as dehydration resolved and blood pressures are rising. 6. Generalized weakness. Improved. Continue physical therapy. 7. Severe protein calorie malnutrition. Dietary following. 8. Chronic lymphocytic leukemia. Continue to monitor severe leukocytosis, with a baseline white blood count in the 80s. 9. DVT prophylaxis: Subcutaneous heparin 10. Code status: Full code. This is reviewed and affirmed with the patient on admission. 11. Disposition. Consider assisted facility placement. Her son will be coming in from out of town tomorrow to discuss care. Plan: -IV ceftriaxone and azithromycin -discontinue IV fluids -restart irbesartan and hydrochlorothiazide -possible discharge to SNF tomorrow Time-Based Coding :: [TOTAL MINUTES] spent with patient and on the chart (including review of chart, obtaining history, exam, reviewing outside data, placing orders, documenting exam and treatment plan, and counseling patient) on [DATE]. PROFEE Charge codes Subsequent inpatient/observation care: [id number]
[2024-04-10 08:00] VITALS: BP 149/91; PULSE 76; RESP 15; TEMP 36.4; O2SAT 100
[2024-04-10 08:13] LABS: Vitamin B12 558 pg/mL (239-931)
[2024-04-10 08:24] LABS: Neutrophils Absolute Manual 19284 /uL (3000-5900); Total Cells Counted 100
[2024-04-10 08:35] LABS: RBC Morphology Normal Morphology; Smudge Cells 2+
[2024-04-10] MEDS: CALCIUM CARBONATE 500 MG TAB PO (08:42)
[2024-04-10] MEDS: HEPARIN 5,000 UNIT/ML VIAL 5000 UNIT SUBCUT ×2 (08:42→21:24)
[2024-04-10] MEDS: MULTIVITAMIN 1 TABLET 1 TAB PO (08:42)
[2024-04-10] MEDS: ASPIRIN EC 81 MG TABLET PO (08:42)
[2024-04-10] MEDS: cefTRIAXone 1,000 MG in SODIUM CHLORIDE 0.9% 100 ML 200 MG IV (08:42)
--- NOTE | 2024-04-10 11:43 | SLP.IPNOTE ---
Session attempted around 11:40. Pt asleep upon TRAINING AND DEVELOPMENT OFFICER arrival. She woke up to name, though politely declined participation, stating she wished to sleep before her lunch arrived. Plan to follow-up later in afternoon as schedule allows.
--- NOTE | 2024-04-10 13:35 | PT.IPTN ---
Current Diagnoses Sepsis, unspecified organism (04/08/24) Physical Therapy Treatment Note M2 PT-IP Current Condition Start: 04/09/24 08:59 Freq: NEEDED Status: Active Protocol: Document 04/09/24 09:08 MB (Rec: 04/09/24 09:38 MB [id number]) Physical Therapy Current Condition Current Condition Evaluation Date 04/09/24 Treatment Diagnosis Confusion, inability to care for self M3 PT-IP Subjective Start: 04/09/24 08:59 Freq: NEEDED Status: Active Protocol: Document 04/10/24 13:55 TS (Rec: 04/10/24 14:07 TS [id number]) Subjective Physical Therapy Visit Type Type Treatment Note Visit Start Time 13:35 Visit Stop Time 13:[address] [place] [address] [place] [employer] LAW CLERK Visits 1 Physical Therapy Visit Comments Patient Comments Pt found resting in the chair, she is agreeable to PT. M4 PT-IP Mobility and Gait Start: 04/09/24 08:59 Freq: NEEDED Status: Active Protocol: Document 04/10/24 13:55 TS (Rec: 04/10/24 14:07 TS [id number]) PT-Transfer Assessment Sit to and From Stand Sit to and from Stand Minimal Assistance,1 Person Assistance Equipment Transfer Assistive Device Gait Belt,Front Wheeled Walker Orthotic/Prosthetic Devices or Brace: No Comments Mobility Comments STS with FWW Jessy from the chair. She ambualtes with a slow step thru gait ~100'CGA, pt has a NBOS and some unsteadiness. She ambulates back to the chair, chair alarm on, all needs met. Gait Assessment Gait Gait Assistance Required: Contact Guard Assist Distance (Feet) 100 Able to Maintain Weight Bearing Status Yes During Gait Assistive Devices Assistive Device Gait Belt,Front Wheeled Walker Orthotic/Prosthetic Devices or Brace: No Gait Deviations General Gait Pattern Decreased Stride Length, Decreased Feet Clearance, Flexed Trunk,Narrow Based Gait Factors Limiting Gait Function Factors Limiting Gait Function Decreased Activity Tolerance, Difficulty Following Directions,Poor Balance,Poor Safety Awareness PT-Balance Assessment Sitting Balance and Reactions Static Sitting Balance Ability Good Dynamic Sitting Balance Ability Fair Standing Balance and Reactions Static Standing Balance Ability Fair Dynamic Standing Balance Ability Fair Device Used RW M5 PT-IP Objective Assessments Start: 04/09/24 08:59 Freq: NEEDED Status: Active Protocol: Document 04/09/24 09:08 MB (Rec: 04/09/24 10:35 MB [id number]) Orientation Orientation/Cognition Level of Alertness Alert Orientation Name,Age,Birthday,Month,Place Language Function Ability No Deficits Noted Safety Awareness Decreased Safety Awareness Memory Description Short Term Impaired,Repertoire Manager Impaired Gross Range of Motion Upper Extremity ROM Impairments Defer to OT Lower Extremity ROM Assessment Within Functional Limits Strength Lower Extremity Strength Assessment Within Functional Limits Coordination Assessment Gross Coordination Gross Coordination Impaired Sensation Assessment Comments Sensation Comments Pt denies paresthesias Muscle Tone Muscle Tone WNL Yes M7 PT-IP Assessment and Plan Start: 04/09/24 08:59 Freq: NEEDED Status: Active Protocol: Document 04/10/24 13:55 TS (Rec: 04/10/24 14:07 TS [id number]) PT Summary Assessment and Plan Potential Rehabilitation Potential Fair Summary Impairments Balance,Coordination,Cognition ,Bed Mobility,Transfers,Gait, Activity Tolerance Progress Towards Goals Slow Progress due to Activity Tolerance Assessment Summary Maria Dolores is making some progress with her mobility but is limited by her activity tolerance. She rquires Jessy for STS form the chair and is CGA for ambulation with FWW. She did progress her gait to ~ 100 this session. PT is recommending Home 24/7 vs SNF. Pt will need support if she were to go home, whcih she currently does not have. Goals Bed Mobility Goal Independent Transfer Goal Independent,Front Wheeled Walker Gait Goal Independent,Front Wheel Walker Gait Distance 100 Other Goals Pt will ascend and descend 3 steps with no more than SHOVELER to allow safe home entrance. Days to Meet Goals 5 Frequency of Treatment Frequency Of Treatment Once a Day Treatment Plan Physical Therapy Treatment Plan Bed Mobility Training,Transfer Training,Gait Training, Therapeutic Exercise,Balance Retraining,Discharge Planning, Hot or Cold Pack,Neuromuscular Re-ed,Coordination Retraining ,Manual Therapy Precautions Other Precautions Fall risk Recommendations To Nursing Amount of Assist Needed Standby Assistance Discharge Recommendations PT Discharge Recommendations Home with 24/7 Assist Available,SNF Rehab,Home vs SNF Transportation Needs at Discharge Private Vehicle,Wheelchair/ Cabulance
--- NOTE | 2024-04-10 15:58 | CM.DPC ---
DCP Cont. Reviewed EMR and team rounds for status updates. Called pt's son, Michele. Michele, will be here in the hospital between 2-4pm tomorrow, it would be good to give him the [facility] list on caregivers (the most recent one) as well as the [employer] book to begin calling about cg in the home. He will be here for 2-weeks, so he will get her all set up. We need to figure out if Meals on Wheels can deliver Boost or Ensure for her. I know that she can get a case from the [facility] with a prescription, if we initiate that through the Transitional care team, they can picker tender helper a case after d/c. Her soon to be ex- told Blake that ?money is not an issue? about hiring all the care that she needs, including someone to clean her house on a regular basis. ICT PROGRAMMER on Saturday should plan to meet with him.
--- NOTE | 2024-04-10 16:27 | OT.IP.TRT ---
Current Diagnoses Sepsis, unspecified organism (04/08/24) Occupational Therapy Treatment Note M2 OT-IP Current Condition Start: 04/09/24 12:07 Freq: Status: Active Protocol: Document 04/09/24 12:07 [facility] (Rec: 04/09/24 12:24 [facility] [id number]) Occupational Therapy Current Condition Current Condition Evaluation Date 04/09/24 Treatment Diagnosis PNA, acute encephalopathy Diagnosis Onset Date 04/08/24 M3 OT- IP Subjective and Pain Start: 04/09/24 12:07 Freq: Status: Active Protocol: Document 04/10/24 16:33 [facility] (Rec: 04/10/24 16:43 [facility] [id number]) OT- Subjective Occupational Therapy Visit Type Type Treatment Note Visit Start Time 16:09 Visit Stop Time 16:27 Occupational Therapy Visit Comments Patient Comments Pt agreed to get up to do oral care need at the sink. Requested pt have a waffle cushion due to pt states getting sore on her bottom. Pt is quite thin and will benefit from the waffle cushion. Nursing notified. Patient/Caregiver Goals To go home. OT Pain Assessment Pain When Pain Assessed At Rest Pain Present Pain Present Denied Pain M4 OT- IP ADL's Start: 04/09/24 12:07 Freq: Status: Active Protocol: Document 04/10/24 16:33 [facility] (Rec: 04/10/24 16:43 [facility] [id number]) OT ADL-Grooming General Evaluation Grooming Ability Standby Assistance Areas Needing Assistance Retrieving/Set-up of Grooming Items Comments OT Grooming Comments Set-up and able to do while standing with the FWW. OT ADL-Oral Care General Eval Oral Care Ability Independent M6 OT- IP Functional Cognition Start: 04/09/24 12:07 Freq: Status: Active Protocol: Document 04/10/24 16:33 [facility] (Rec: 04/10/24 16:43 [facility] [id number]) Cognitive Factors Limiting Selfcare Function Cognitive Ability Level of Alertness Alert Attention Span Ability Capable of Focused Attention, Capable of Sustained Attention Ability to Follow Commands Able to Follow One Step Commands Cognitive Comments Cognitive Assessment Comments Pt appears to be thinking better today and able to follow ADl and mobility needs better. M7 OT- IP Mobility and Balance Start: 04/09/24 12:07 Freq: Status: Active Protocol: Document 04/10/24 16:33 [facility] (Rec: 04/10/24 16:43 [facility] [id number]) OT-Transfer Assessment Sit to and From Stand Sit to and from Stand Minimal Assistance Transfers Transfer Ability Contact Guard Assistance Technique Transfer Destination Chair Transfer Technique Stand Step Pivot Devices Transfer Assistive Devices Gait Belt,Front Wheeled Walker Comments Mobility Comments CHRISTOPHE to stand and able to scoot herself forwards. CHRISTOPHE to stand today and CGA with FWW. Pt much steadier on her feet today. M8 OT- IP Objective Assessments Start: 04/09/24 12:07 Freq: Status: Active Protocol: Document 04/09/24 12:07 [facility] (Rec: 04/09/24 12:24 [facility] [id number]) OT Gross Range of Motion Upper Extremity Range of Motion Assessment Within Functional Limits OT Strength Upper Extremity Strength Assessment Within Functional Limits Hand Management Supervisor Strength Hand Dominance Right OT- Coordination Assessment Upper Extremity Finger to Nose Test Within Functional Limits OT Sensation Assessment Comments Summary Comments Intact for light touch. M9 OT- IP Assessment and Plan Start: 04/09/24 12:07 Freq: Status: Active Protocol: Document 04/10/24 16:33 [facility] (Rec: 04/10/24 16:43 [facility] [id number]) OT Summary Assessment and Plan Potential Rehabilitation Potential Good Analytic Complexity at Evaluation Moderate Summary OT Impairments Balance,Functional Cognition, Functional Mobility,Grooming, Dressing,Toileting,Bathing, Toilet Transfers,Shower Transfers,Activity Tolerance Progress Towards Goals Progressing Toward Goals Assessment Summary Pt doing better today and more alert and stable on her feet . However still needing cga to CHRISTOPHE for mobility needs and CHRISTOPHE for safety awareness. Pt will benefit from skilled rehab versus / assist and home health. Goals Self-Feeding Goal Independent Grooming Goal Independent Dressing Goal Independent Toileting Goal Independent Bathing Goal Standby Assistance Toilet Transfer Goal Independent Shower Transfer Goal Standby Assistance Days to Meet Goals 15 Frequency of Treatment Other frequency 5x/week Treatment Plan OT Treatment Plan ADL Training,Functional Cognition Training,Functional Mobility,Patient/Family Education,Discharge Planning Discharge Recommendations OT Discharge Recommendations SNF Rehab,Home vs SNF Other Discharge Recommendations Home with 24/7 assist and home health. Transportation Needs at Discharge Private Vehicle,Wheelchair/ Cabulance
--- NOTE | 2024-04-10 16:37 | DIET.PN1 ---
Dietary Progress Note Assessment: Per RN pt drank Ensure at breakfast. Pt didn't eat any lunch today. Providing Ensure Enlive with dinner. Will continue BID. Ht: 165.1 cm Wt: 34.927 kg BMI: 12.8 UBW: 48.988 kg on 01/09/23 (-29% weight loss in >1yr) Last BM: 04/10/24 (04/10/24 03:00) MNA: 3 Elliott Score: 20 Diet: 04/08/24 Breakfast Heart Healthy Diet Diet Modifications: Nutrition Percent Meal Consumed 50% 04/09/24 18:00 Labs: RBC 4.62 X10^6/uL (4.0-5.2) 04/10/24 05:52 Hgb 13.1 g/dL (12.0-16.0) 04/10/24 05:52 Hct 41.3 % (36-46) 04/10/24 05:52 Creatinine 0.67 mg/dL (0.52-1.04) 04/10/24 05:52 Lactate 2.1 mmol/L (0.7-2.1) 04/08/24 19:41 Electronically Signed by: Jillian Helms 04/10/24 16:37 Clinical Diet[address] [address]
[2024-04-10 20:00] VITALS: BP 140/86; PULSE 74; RESP 18; TEMP 37.1; O2SAT 98
[2024-04-10] MEDS: AZITHROMYCIN 500 MG in DEXTROSE 5% IN WATER 250 ML 250 MG IV (21:24)
[2024-04-11 07:03] LABS: BUN Creatinine Ratio 38.3 (6-22); Blood Urea Nitrogen 18 mg/dL (7-17); Calcium 7.9 mg/dL (8.4-10.2); Carbon Dioxide 23 mmol/L (22-32); Chloride 117 mmol/L (98-107); Estimated Glomerular Filt Rate > 60 mL/min (>60); Glucose 82 mg/dL (80-110); HEMOLYSIS 36 (0-50); Potassium 4.2 mmol/L (3.4-5.1); Sodium 141 mmol/L (137-145)
[2024-04-11 07:38] LABS: Hemoglobin 12.3 g/dL (12.0-16.0); Mean Corpuscular HGB Conc 32.4 % (30-36); Mean Corpuscular Hemoglobin 28.5 PG (26-34); Mean Corpuscular Volume 87.9 fL (80-100); Platelet Count 109 X10^3/uL (150-400); Red Blood Cell Count 4.32 X10^6/uL (4.0-5.2); Red Cell Distribution Width 14.6 % (11.6-14.8)
[2024-04-11 07:53] LABS: Add Manual Diff / Slide Review YES
[2024-04-11 07:55] LABS: White Blood Cell Count 171.4 X10^3/uL (4.5-11.0)
[2024-04-11 07:58] LABS: Neutrophils Absolute Manual 13712 /uL (3000-5900); RBC Morphology Normal Morphology; Smudge Cells 3+; Total Cells Counted 100
[2024-04-11 08:00] VITALS: BP 125/79; PULSE 89; RESP 12; TEMP 36.6; O2SAT 98
[2024-04-11] MEDS: HEPARIN 5,000 UNIT/ML VIAL 5000 UNIT SUBCUT (09:03)
[2024-04-11] MEDS: cefTRIAXone 1,000 MG in SODIUM CHLORIDE 0.9% 100 ML 200 MG IV (09:03)
[2024-04-11] MEDS: hydroCHLOROthiazide 25 MG TABLET PO (09:04)
[2024-04-11] MEDS: ASPIRIN EC 81 MG TABLET PO (09:04)
[2024-04-11] MEDS: LOSARTAN 25 MG TABLET PO (09:04)
[2024-04-11] MEDS: SODIUM CHLORIDE 0.9% FLUSH 10 ML IV (09:04)
[2024-04-11] MEDS: MULTIVITAMIN 1 TABLET 1 TAB PO (09:04)
--- NOTE | 2024-04-11 10:20 | PC.NURSE ---
Patient is resting comfortably, she is a bit confused but pleasant. Ate well at breakfast and is watching television now.
--- NOTE | 2024-04-11 13:36 | P.DS_ITS ---
History of Present Illness History of Present Illness Date Patient Seen: 04/11/24 Time Patient Seen: 09:50 Date of Onset of Symptoms: 04/09/24 Chief complaint: Cant Care for self Narrative: 78 year-old female with past medical history of CLL being followed by hematology at [facility], COPD non o2 dependent, depression, hypertension, and small bowel obstruction presents with generalized weakness, confusion and unable to care for self at home. Per report, the patient was found by EMS to be confused and naked down from the waist. Per report, the patient has not picked up the food (Meals on wheels) for a few weeks. Of note during the time my interview, the patient was still confused and unable to give any history. Per ER physician the patient was confused in the ER as well and unable to give any history. CT head was negative. WBC was 280s which is increased from last year in the 80s. Lactate 3.2. There was signs of dehydration sodium 154 and BUN 53. UA pending. Phosphorus 4.6 and magnesium 2.6. In our ER, the patient was given IV fluid as well as empiric IV ceftriaxone. Hematology oncology from [facility] was called and recommended that we admit the patient here for management and treatment of possible infection. In regards to severe Leukocytosis there?s no urgent intervention needed at this point per their recommendation but will need to follow up with hematology oncology post discharge for further treatment. Note CXR came back positive for pneumonia. Azithromycin was added. CT head negative. Discharge Providers Provider Date of admission: 04/08/24 20:45 Discharge Date: 04/11/24 Primary care physician: Sayra Russo MD Consults: 04/08/24 17:58 Consult to [facility] [place] - Child Care Associate Teacher Stat Comment: Child Care Associate Teacher Consult needed for:: Unable to care for self 04/08/24 21:45 Consult to Occupational Therapy Evaluate & Treat Comment: Physician Instructions: Evaluate and treat Consult to Physical Therapy Evaluate & Treat Comment: Physician Instructions: Evaluate and Treat 04/09/24 10:37 Consult to Physical Therapy Evaluate & Treat Comment: weakness/pneumonia Physician Instructions: Evaluate and Treat 04/09/24 10:38 Consult to Dietitian, Adult Routine Comment: Reason For Exam: protein maria elena malnutrition 04/09/24 12:28 Consult to Speech Therapy Evaluate & Treat Comment: coughing after liquids Physician Instructions: Evaluate and treat Discharge provider: Pedro Luu MD Summary Hospital Course Discharge Diagnosis: 1. Community-acquired pneumonia. 2. Sepsis due to 1 with severe acute on chronic lymphocytic leukemia leukocytosis and elevated serum lactate. 3. Acute metabolic encephalopathy, possibly due to underlying infection, consider underlying dementia. 4. Hypernatremia due to dehydration. 5. Hypertension. 6. Generalized weakness. 7. Severe protein calorie malnutrition. 8. Chronic lymphocytic leukemia. Hospital Course: The patient was admitted with an elevated white count of 221, attributed to leukocytosis related to her underlying chronic lymphocytic leukemia, improved to 171 at discharge with combination of antibiotics, fluids and supportive care. She was septic with elevated serum lactate of 3.2, improved to 2.1 within several hours of hydration and fluid support, and demonstrated confusion which improved significantly during her hospitalization. She had lost significant weight in the preceding months and dietary was consulted with dietary recommendations made regarding increased nutritional support. Outpatient follow-up with her oncologist wrist recommended. Her son coordinated with social sciences professor to arrange home care and home health services. Care is reviewed with her and her son Michele at bedside who are in agreement with this plan of care. No other issues arose. Status at Discharge Cognitive/behavioral status at discharge: oriented Functional status at discharge: uses cane/walker Overall status at discharge: patient is not back to baseline Time Spent with Patient Time spent: Greater than 30 minutes Exam Vital Signs (past 8 hours): Oxygen Delivery Method Room Air Oxygen Flow Rate 0 Narrative Exam Narrative: GENERAL: This is a frail, cachectic female patient, in no apparent distress. EYES: Pupils equal round and reactive. Extraocular motions intact. No scleral icterus. No injection or drainage. ENT: Mucous membranes pink and moist. NECK: Supple, nontender, no meningeal signs. CARDIOVASCULAR: Regular rate and rhythm without murmurs, gallops, or rubs. RESPIRATORY: Clear to auscultation. GASTROINTESTINAL: Abdomen soft, non-tender, nondistended. EXTREMITIES: No clubbing, cyanosis, or edema. NEUROLOGIC: Alert, oriented to person, time and place, speech fluent, full upper and lower motor strength, no focal deficits evident. DERMATOLOGIC: No rashes or skin lesions. Objective Imaging *: Radiologist's impression: Head CT 04/08/2024: No acute intracranial pathology. Chest x-ray 04/08/2024: Likely multifocal pneumonia involving the left upper and lower lobes with a small left pleural effusion. Labs 04/11/24 06:39 04/11/24 06:39 Labs: Laboratory Results - last 24 hr 04/11/24 06:39 WBC 171.4 H* RBC 4.32 Hgb 12.3 Hct 38.0 MCV 87.9 MCH 28.5 MCHC 32.4 RDW 14.6 Plt Count 109 L Neut % (Auto) Not Reportable Lymph % (Auto) Not Reportable Mellette % (Auto) Not Reportable Eos % (Auto) Not Reportable Baso % (Auto) Not Reportable Lymph # (Auto) Not Reportable Mellette # (Auto) Not Reportable Baso # (Auto) Not Reportable Total Counted 100 Seg Neutrophils % 8.0 L Lymphocytes % (Manual) 91.0 H Monocytes % (Manual) 1.0 L Neutrophils # (Manual) 37934 H Smudge Cells 3+ H RBC Morphology Normal morphology Sodium 141 Potassium 4.2 Chloride 117 H Carbon Dioxide 23 BUN 18 H Creatinine 0.47 L Estimated GFR > 60 BUN/Creatinine Ratio 38.3 H Glucose 82 Calcium 7.9 L PFSH Medical History Breast cancer, left (~2011) Small bowel obstruction COPD (chronic obstructive pulmonary disease) Lack of appetite Wears dentures Impaired vision Depression History of UTI Colostomy in place Mild protein-calorie malnutrition Hypertension Mass of appendix CLL (chronic lymphocytic leukemia) Erythrocytosis Other bursal cyst, unspecified wrist Glaucoma Surgical History S/P small bowel resection History of colonoscopy Status post laparoscopic colectomy H/O: hysterectomy Tubal ligation status Family History Mother No known health problems Father No known health problems Social History household members: none Smoking Status: Current every day smoker alcohol intake: never substance use type: does not use Discharge Plan Discharge Plan Patient Disposition: Home Health Service Provider Discharge Comment: Followup with PCP Dr. Sayra Russo 1 week Discharge orders & Medications Prescriptions: New cefuroxime axetil 500 mg tablet 500 mg PO BID Qty: 8 0RF azithromycin 250 mg tablet 250 mg PO DAILY Qty: 2 0RF Continued hydrochlorothiazide 12.5 mg capsule 25 mg PO DAILY latanoprost 0.005 % drops 1 drp ophthalmic (eye) BEDTIME Patient Comments: patient states running out..needs refill calcium carbonate [Calcium 500] 500 mg calcium (1,250 mg) Tablet 500 mg PO DAILY Qty: 0 aspirin [Aspir-81] 81 mg Tablet,Delayed Release (Dr/Ec) 1 tab PO DAILY multivitamin Tablet 1 tab PO DAILY Patient Comments: womens 50+ multivitamin irbesartan 75 mg Tablet 75 mg PO DAILY Follow up/Referrals: Sayra Russo MD [Primary Care Provider] - Diet/Activity/Treatments Diet: Regular Visit Report/Discharge Packet Stand Alone Forms: Congestive Heart Failure, Patient Portal/API, Stroke Signs & Symptoms Discharge Data Primary Care Provider: Sayra Russo Quality MIPS - Admit I confirm the patient?s Advance Care Plan is present, Code status is documented, Surrogate decision maker is in patient?s record [If Yes, STOP here]: Yes MIPS - Meds 'Current medications' to include all prescriptions, [id number] products, herbals, cannabis/cannabidiol products, and vitamin/mineral/dietary (nutritional) supplements. I have utilized all available resources to obtain, update, or review the patient?s current medications. [If Yes, STOP here]: Yes MIPS - DC The patient has a history of heart transplant or Left Ventricular Assist Device (LVAD). If yes, STOP here.: No The patient has current or prior documentation of left ventricular ejection fraction (LVEF) less than or equal to 40%, or moderate or severely depressed left ventricular systolic function.: No A. The patient was prescribed or already taking an Angiotensin-Converting Enzyme (DAMION) Inhibitor, or Angiotensin Receptor Ambrocio (ARB).: Yes B. The patient was prescribed or already taking a beta-ambrocio. [If Yes to Both A & B, STOP here]: No Patient not prescribed/taking DAMION or ARB, no reason given.: No Patient not prescribed/taking beta-ambrocio, no reason given.: No [facility] PROFEE Charge Codes Discharge inpatient/observation: [id number]
--- NOTE | 2024-04-11 15:26 | CM.DPC ---
DCP Discharge Home with HH Per MD, pt is medically stable to discharge home with son today and agreeable with HH and resources, discharge orders placed. Per [employer] LAYOUT DESIGNER, recommending home with 14/01 and HH. SW made [facility] referral based on pt's insurance and Vendor Calendar and F2F completed and HH orders placed. OSKAR called pt's son Michele and he confirms he flew in from [place] and is at pt's house right now and SW updated him on discharge orders and he confirms he will provide transport home and plans to stay with pt a couple weeks to get her set up with in-home care and better LTC plan. Son is agreeable with HH and SW left [facility] brochure in pt's room along with the [facility] Private [facility] list to review. OSKAR updated RN and pt sleeping soundly and RN will notify MD when son arrives in case he has medical questions. Plan: Patient to discharge home today via son POV and new [facility] referral made and resources provided for son for LTC planning. ANGEL Bernardo
== END 2024-04-11 19:47 | disposition home health service (06) | DRG 871 ==
LOC: ED 18:41 → AC 20:46
PROVIDERS: Internal Medicine; Student in an Organized Health Care Education/Training Program; Admitting Provider Internal Medicine; Emergency Provider Emergency Medicine; PCP Internal Medicine; Referring Provider Emergency Medicine; Visit Provider Internal Medicine
DX: A41.9 Sepsis, unspecified organism (principal); E43 Unspecified severe protein-calorie malnutrition; J18.9 Pneumonia, unspecified organism; G93.41 Metabolic encephalopathy; C91.10 Chronic lymphocytic leukemia of B-cell type not having achieved remission; Z68.1 Body mass index [BMI] 19.9 or less, adult; E87.0 Hyperosmolality and hypernatremia; F17.200 Nicotine dependence, unspecified, uncomplicated; I10 Essential (primary) hypertension; E86.0 Dehydration; R53.1 Weakness; F03.90 Unspecified dementia, unspecified severity, without behavioral disturbance, psychotic disturbance, mood disturbance, and anxiety; H40.9 Unspecified glaucoma
CPT/HCPCS: 36415; 70450; 71045; 80048; 80053; 80305; 80320; 80329; 82550; 82607; 83605; 83690; 83735; 84100; 84443; 85007; 85025; 87040; 92523; 92610; 93005; 96360; 96361; 97116; 97161; 97166; 97530; 97535; 99284; 99285; G0480; J0696; J1644